=== PATIENT | male | born 1980 | race Caucasian/White ===

== ENCOUNTER → 2018-08-10 14:21 | Outpatient (CLI) | payer MEDICAID, SELFPAY ==
[2018-08-10 15:12] LABS: Absolute Neutrophil Count 5.9 X10^3/uL (2.0-7.7); Basophil# 0.07 X10^3/uL; Basophil% 0.8 % (0-1); Eosinophil# 0.27 X10^3/uL; Hematocrit 43.6 % (40-54); Mean Corp Hgb Conc 34.4 g/gl (32-36); Mean Corpuscular Hgb 28.2 pg (27.0-32.0); Mean Corpuscular Volume 82.1 fL (80-94); Mean Platelet Vol. 11.6 fl (6.2-12.0); Monocyte# 0.89 X10^3/uL; Monocyte% 9.9 % (0-10); Neutrophil # 5.91 X10^3/uL (2.7-7.7); Neutrophil % 65.9 % (47-70); Platelet Count 215 K/mm3 (150-450); RBC Distribution Width CV 13.3 % (11.6-14.6); RBC Distribution Width SD 39.9 fl (35.1-43.9); Red Blood Count 5.31 M/mm3 (4.6-6.2)
[2018-08-10 15:13] LABS: POSITIVE COUNT NO; POSITIVE DIFFERENTIAL NO; POSITIVE MORPHOLOGY NO
[2018-08-10 15:33] LABS: ALB/GLOB Ratio 0.9 RATIO (0.9-2.4); AST(SGOT) 24 U/L (15-37); Alanine Aminotransfer ALT/SGPT 42 U/L (16-61); Albumin, Serum 3.6 g/dL (3.2-5.0); Alkaline Phosphatase 124 U/L (45-117); Anion Gap 6 (5-15); BUN 13 mg/dL (7-18); BUN/Creat Ratio 16.7 RATIO (10-20); Calcium,Total 8.6 mg/dL (8.5-10.1); Chloride 102 mmol/L (98-107); Creatinine, Serum 0.78 mg/dL (0.70-1.30); EST Glomerular Filtration Rate 119 mL/min (>60); Est Glom Filt Rate - Afr Amer 145 mL/min (>60); Globulin 3.9 g/dL (2.2-4.2); Glucose 72 mg/dL (74-106); Potassium 4.2 mmol/L (3.5-5.1); Protein, Total 7.5 g/dL (6.4-8.2); Sodium Level 134 mmol/L (136-145)
[2018-08-10 16:19] LABS: HIV - WCH Non-Reactive (Nonreactive)
[2018-08-12 06:07] LABS: HEPATITIS B SURFACE AG Negative (Negative); Hepatitis A AB, Total Negative (Negative); Hepatitis A IgM Antibody Negative (Negative); Hepatitis B Core AB IgM Negative (Negative); Hepatitis B Core Ab Total Negative (Negative)
[2018-08-13 13:06] LABS: Hep B Surface Antibodies Non Reactive (.)
[2018-08-16 12:21] LABS: Hepatitis C Ab >11.0 s/co ratio (0.0-0.9)
== END ==
PROVIDERS: Family Provider Nurse Practitioner Family; PCP Nurse Practitioner Family; Visit Provider Nurse Practitioner Family
DX: F19.10 Other psychoactive substance abuse, uncomplicated (principal)
CPT/HCPCS: 36415; 80053; 85025; 86703; 86704; 86705; 86706; 86708; 86709; 86803; 87340

== ENCOUNTER → 2018-08-26 07:05 | Outpatient (CLI) | payer MEDICAID, SELFPAY ==
--- NOTE | 2018-08-26 07:07 | CT_ITS ---
STUDY: CT ABDOMEN AND PELVIS WITH CONTRAST REASON FOR EXAM: Male, 38 years old. Right groin pain and bulge for several months RADIATION DOSAGE (If Supplied By Facility): CTDIvol = ( 13.51 ) mGy, DLP = ( 1304.13 ) mGycm TECHNIQUE: Transaxial images were obtained from the dome of the diaphragm to the symphysis pubis with oral contrast. 100mL ml of Isovue 300 contrast was administered. Sagittal and coronal images were reconstructed. Individualized dose optimization techniques were used for this CT. COMPARISON: None. FINDINGS: The visualized lung bases are unremarkable. The visualized portions of the heart are within normal limits. Normal liver. Normal gallbladder and extrahepatic biliary system. Normal spleen. Normal pancreas. Normal bilateral adrenal glands. Normal right kidney. Normal left kidney. Normal visualized stomach. Normal small intestine. Normal colon. The appendix is visualized and appears normal. Normal abdominal aorta. Normal inferior vena cava. Normal retroperitoneum. Normal urinary bladder. Normal abdominal wall. Normal osseous structures. CT/Abdomen/Pelvis WITH Contrast IMPRESSION: No inguinal hernia is visible at this time. No evidence of acute intestinal pathology or acute obstructive uropathy. Electronically Signed: Jack So MD at 9:29 EDT Tel , Service support ,
== END ==
PROVIDERS: Family Provider Nurse Practitioner Family; PCP Nurse Practitioner Family; Referring Provider Surgery
DX: R10.31 Right lower quadrant pain (principal)
CPT/HCPCS: 74177; Q9967

== ENCOUNTER 2019-07-13 20:22 | Emergency (ER) | payer SELFPAY ==
[2019-07-13] VITALS (8 sets, daily range): BP systolic 112–147; BP diastolic 79–90; PULSE 55–66; RESP 9–18; TEMP 36.5; O2SAT 97–100; BMI 18.6
--- NOTE | 2019-07-13 20:59 | CT_ITS ---
STUDY: CT ABDOMEN AND PELVIS WITHOUT CONTRAST REASON FOR EXAM: Male, 39 years old. RT GROIN/HERNIA PAIN RADIATION DOSAGE (If Supplied By Facility): CTDIvol = ( 6.04 ) mGy, DLP = ( 297.48 ) mGycm TECHNIQUE: Transaxial images were obtained from the dome of the diaphragm to the symphysis pubis without oral contrast, and without intravenous contrast. Sagittal and coronal images were reconstructed. Individualized dose optimization techniques were used for this CT. COMPARISON: 08/26/2018 FINDINGS: The visualized lung bases are unremarkable. The visualized portions of the heart are within normal limits. Normal liver. Normal gallbladder and extrahepatic biliary system. Normal spleen. Normal pancreas. Normal bilateral adrenal glands. Normal right kidney. Normal left kidney. Evaluation of the GI tract is limited by absence of oral contrast. Cannot exclude stomach wall thickening. No dilated loops of bowel or evidence for obstruction. Cannot exclude segmental thickening of the mathis of the small or large bowel. Cannot exclude enteritis or colitis. Moderate diffuse fecal retention. Appendix within normal limits. Normal abdominal aorta. Normal inferior vena cava. Normal retroperitoneum. Normal urinary bladder. There is a right-sided inguinal hernia containing a segment of bowel without evidence for obstruction. Normal osseous structures. CT/Abdomen/Pelvis without Cont IMPRESSION: Small to moderate right inguinal hernia containing a short segment of bowel with no evidence for obstruction. Electronically Signed: Kaleb Elizalde MD at 21:33 EDT , Service support ,
--- NOTE | 2019-07-13 21:40 | ED.DCSUM_ITS ---
History of Present Illness Chief Complaint: Abd Pain Narrative: Patient presenting due to concerns for a hernia. Patient states that he has had bulging in his right groin over the course of approximately last 3 weeks, but since 7 PM tonight he had a severe onset of pain associated with it. Denies any nausea vomiting or diarrhea associated with it. No fevers. No injuries or lifting twisting pushing or pulling. Patient has no prior history of hernia, but that is what he is concerned is going on.Pain is severe and worse with palpation. 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 Smoking Status: Current every day smoker Review of Systems All systems negative except as indicated Genitourinary: Reports: - - Right groin pain Physical Exam Vital Signs/Narrative: Vital Signs Temp Pulse Resp BP Pulse Ox 07/13/19 20:22 97.7 F L 56 L 18 127/82 H 97 General: Well nourished, Well developed, No Acute Distress Head: Normocephalic, Atraumatic Eyes: Perrl, EOMI ENT: Moist mucous membranes, No rhinorrhea Neck: Supple, Nontender Cardiovascular: Regular rate, Regular rhythm, No murmurs Respiratory: No distress, CTA bilaterally, Chest nontender Abdomen: Soft, Nontender, Nondistended, Normal bowel sounds : - - Patient has evidence of a right inguinal hernia that appears to be an indirect hernia that does not extend down into the patient's scrotum. Testes are normal and nontender. Hernia is exquisitely tender to palpation no evidence of overlying skin changes. Back: Nontender, Normal Inspection Extremities: Nontender, No edema Skin: Normal color, No rash Neurological: Alert, Oriented x3, Cranial nerves II-XII grossly intact, Normal Strength, Normal Sensation Psychological: Normal affect, Normal Mood Diagnostic/Tx/Re-eval - Medical Decision Making Patient presented with an incarcerated hernia. This was confirmed on CT scan. I initially attempted Trendelenburg and ice application and tried to reduce it without any sedation but was unsuccessful. Ultimately the patient was sedated with a total of 120 mg of propofol and successful reduction was performed. Given the fact that this was incarcerated, I contacted on-call general surgery for close follow-up. Patient was recommended lifting restrictions until followed up with general surgery. He was discharged in improved condition. Procedures Procedure(s): Patient was consented for procedural sedation and reduction of her right incarcerated inguinal hernia. Patient was placed on the mushroom spawn maker and supplemental oxygen. Patient was sedated with a total of 120 mg of propofol with good anesthesia. Continuous pressure of the patient's right groin ultimately resulted in successful reduction of the patient's incarcerated inguinal hernia. Patient was observed until he was fully awake Disposition: Home ED Disposition - Plan for ED Patient: Disposition: Home or Assisted Living Diagnosis: Incarcerated inguinal hernia, unilateral Instructions: Hernia Repair Surgery Referrals: Monique Roper MD [STAFF PHYSICIAN] - As soon as possible
[2019-07-13] MEDS: Propofol 200 MG/20 ML Vial IV BOLUS (22:24)
== END 2019-07-13 23:03 | disposition home or self-care (01) ==
PROVIDERS: Emergency Provider Emergency Medicine
DX: K40.30 Unilateral inguinal hernia, with obstruction, without gangrene, not specified as recurrent (principal); F17.200 Nicotine dependence, unspecified, uncomplicated; Z88.0 Allergy status to penicillin
CPT/HCPCS: 74176; 90471; 99285; J7030

== ENCOUNTER → 2021-04-08 08:49 | Outpatient (CLI) | payer MEDICAID, SELFPAY ==
[2019-07-13 20:22] VITALS: BMI 18.6
--- NOTE | 2021-04-08 08:52 | US_ITS ---
STUDY: ABDOMINAL ULTRASOUND - RIGHT UPPER QUADRANT REASON FOR VISIT: Male, 40 years old CHRONIC VIRAL HEPATITIS C TECHNIQUE: Ultrasound evaluation of the right upper quadrant was performed with real-time and static bhandari-scale imaging. TECHNICAL QUALITY: Adequate. COMPARISON: Comparison is made with prior CT scan of the abdomen dated 07/13/2019. FINDINGS: Liver: The liver measures 16.1 cm. There is normal echogenicity of the liver. Minimally dilated intrahepatic biliary ducts. There is hepatic color flow. The direction of portal flow is hepatopetal. There is no demonstrated mass lesion. Gallbladder: Normal distended gallbladder. The gallbladder wall measures 2.6 mm. There is a negative sonographic Brothers''s sign. There is no pericholecystic fluid. There are no gallstones. Common Bile Duct (C.B.D.): The common bile duct measures 5.2 mm. Pancreas: Normal size of the head, body and tail of the pancreas. There is normal echogenicity of the pancreas. There is no demonstrated pancreatic mass or cyst. Right Kidney: Normal size of the right kidney. The right kidney measures 11.5 cm x 4.7 cm x 4.2 cm. Normal renal cortex. The right cortex measures 1.5 cm. There is no demonstrated renal mass or cyst. There is no right hydronephrosis. US/Abdomen Limited IMPRESSION: Minimally dilated central intrahepatic biliary ducts. Electronically Signed: Fabrizio Chin MD at 10:16 EDT , Service support ,
== END ==
PROVIDERS: Referring Provider Internal Medicine Infectious Disease; Visit Provider Internal Medicine Infectious Disease
DX: B18.2 Chronic viral hepatitis C (principal)
CPT/HCPCS: 76705

== ENCOUNTER → 2021-04-10 09:33 | Outpatient (CLI) | payer MEDICAID, SELFPAY ==
[2019-07-13 20:22] VITALS: BMI 18.6
[2021-04-10 10:35] LABS: Absolute Lymphocyte Count 1.86 X10^3/uL (0.83-4.51); Absolute Neutrophil Count 6.4 X10^3/uL (2.0-7.7); Basophil# 0.11 X10^3/uL; Basophil% 1.1 % (0-1); Eosinophils% 4.1 % (0-5); Hematocrit 47.7 % (40-54); Hemoglobin 15.8 g/dL (13.0-16.5); Lymphocyte # 1.86 X10^3/ul (0.83-4.51); Mean Corp Hgb Conc 33.1 g/dL (32-36); Mean Corpuscular Hgb 27.9 pg (27.0-32.0); Mean Corpuscular Volume 84.1 fL (80-94); Mean Platelet Vol. 11.9 fl (6.2-12.0); Monocyte# 0.97 X10^3/uL; Monocyte% 9.9 % (0-10); NRBC Flagged by Analyzer 0 % (0-5); Neutrophil # 6.42 X10^3/uL (2.7-7.7); Neutrophil % 65.7 % (47-70); Platelet Count 227 K/mm3 (150-450); RBC Distribution Width CV 12.5 % (11.6-14.6); Red Blood Count 5.67 M/mm3 (4.6-6.2); White Blood Count 9.8 K/mm3 (4.4-11.0)
[2021-04-10 11:03] LABS: ALB/GLOB Ratio 1.2 RATIO (0.9-2.4); AST(SGOT) 22 U/L (15-37); Alanine Aminotransfer ALT/SGPT 30 U/L (16-61); Albumin, Serum 3.8 g/dL (3.2-5.0); Alkaline Phosphatase 115 U/L (45-117); Anion Gap 5 (5-15); BUN 10 mg/dL (7-18); BUN/Creat Ratio 14.6 RATIO (10-20); Calcium,Total 8.7 mg/dL (8.5-10.1); Chloride 106 mmol/L (98-107); Creatinine, Serum 0.68 mg/dL (0.70-1.30); EST Glomerular Filtration Rate 136 mL/min (>60); Est Glom Filt Rate - Afr Amer 165 mL/min (>60); Globulin 3.3 g/dL (2.2-4.2); Glucose 118 mg/dL (74-106); Protein, Total 7.1 g/dL (6.4-8.2); Sodium Level 141 mmol/L (136-145)
[2021-04-10 11:19] LABS: Hepatitis B Surface Antigen Non-Reactive (Nonreactive)
[2021-04-10 12:00] LABS: Amphetamine Urine VISTA NEGATIVE (<1000 ng/mL); Barbiturate Urine VISTA NEGATIVE (< 200 ng/mL); Benzodiazepine Urine VISTA NEGATIVE (< 200 ng/mL); Cocaine Urine VISTA NEGATIVE (< 300 ng/mL); Ecstacy Urine VISTA NEGATIVE (< 500 ng/mL); Methadone Urine VISTA NEGATIVE (< 300 ng/mL); PCP Urine VISTA NEGATIVE (< 25 ng/mL); THC Urine VISTA POSITIVE (< 50 ng/mL); Vista UDS pH Range 5
[2021-04-12 08:27] LABS: HIV-1 RNA by PCR, Quant. < 20 copies/mL (.)
[2021-04-13 03:07] LABS: Comment 1a (.); HCV Quant. RNA PCR 2000000 IU/mL (.); Hepatitis A AB, Total Negative (Negative); Hepatitis A IgM Antibody Negative (Negative)
[2021-04-13 15:10] LABS: HCV log 10 6.301 (.)
== END ==
DX: B18.2 Chronic viral hepatitis C (principal)
CPT/HCPCS: 36415; 80053; 80307; 85025; 86708; 86709; 87340; 87522; 87536; 87902

== ENCOUNTER → 2021-04-29 10:08 | Outpatient (CLI) | payer MEDICAID, SELFPAY ==
[2019-07-13 20:22] VITALS: BMI 18.6
[2021-04-29 11:05] LABS: Hemoglobin A1c 5.2 % (3.8-5.6)
[2021-04-29 11:23] LABS: T4 Free Direct 0.94 ng/dL (0.76-1.46); Thyroid Stim Hormone (TSH) 2.49 uIU/mL (0.358-3.74)
== END ==
DX: R53.83 Other fatigue (principal); R63.4 Abnormal weight loss; B18.2 Chronic viral hepatitis C
CPT/HCPCS: 36415; 83036; 84439; 84443

== ENCOUNTER → 2021-05-02 15:02 | Outpatient (CLI) | payer MEDICAID, SELFPAY ==
[2019-07-13 20:22] VITALS: BMI 18.6
--- NOTE | 2021-05-02 15:10 | CT_ITS ---
STUDY: CT ABDOMEN AND PELVIS WITHOUT CONTRAST REASON FOR EXAM: Male, 41 years old. ABD PAIN/WEIGHT LOSS RADIATION DOSAGE (If Supplied By Facility): CTDIvol = ( 6.04 ) mGy, DLP = ( 297.48 ) mGycm TECHNIQUE: Transaxial images were obtained from the dome of the diaphragm to the symphysis pubis without oral contrast, and without intravenous contrast. Sagittal and coronal images were reconstructed. Individualized dose optimization techniques were used for this CT. COMPARISON: Comparison is made with prior examination 07/13/2019. FINDINGS: The visualized lung bases are unremarkable. The visualized portions of the heart are within normal limits. Normal liver. Normal gallbladder and extrahepatic biliary system. Normal spleen. Normal pancreas. Normal bilateral adrenal glands. Normal right kidney. Normal left kidney. Normal visualized stomach. Normal small intestine. Normal colon. The appendix is visualized and appears normal. Normal abdominal aorta. Normal inferior vena cava. Normal retroperitoneum. Moderate degree of diffuse bladder wall thickening more prominent at the bases. There is enlargement of the seminal vesicles bilaterally. The prostate measures 2.9 cm x 4.4 cm. Normal abdominal wall. Normal osseous structures. CT/Abdomen/Pelvis without Cont IMPRESSION: Bladder wall thickening with irregularity as described. Enlargement of the seminal vesicles bilaterally. This is unchanged. Electronically Signed: Fabrizio Chin MD at 15:32 EDT , Service support ,
== END ==
DX: R63.4 Abnormal weight loss (principal); R10.32 Left lower quadrant pain
CPT/HCPCS: 74176

== ENCOUNTER → 2021-05-09 10:38 | Outpatient (CLI) | payer MEDICAID, SELFPAY ==
[2019-07-13 20:22] VITALS: BMI 18.6
--- NOTE | 2021-05-09 10:43 | CYSPIN_PTH ---
PATIENT: DEMI MCNAMARA LOC: LAB U#:[id number] AGE/SX: 45/M ROOM: RE05/09/[address]: Dr. Ольга Jane MD : 1980 BED: DIS: SPEC #: [id number] RECD: 05/09/21 11:41 STATUS: KWESI RENATA #: [id number] KENYATTA: 05/09/21 10:[address]: Ольга Jane [facility] DEPT: CYTOLOGY RECD BY: Yisel Munoz ENTERED: 05/09/21 11:41 SP TYPE: CYSPIN FL OT DR: [facility] Tissues: Urine Procedures: Pap Stain (control) Special Stain Group II Cytospin Fluid HEADER OPERATION: Not noted PRE-OP DIAGNOSIS: R10.9, R53.83, R63.4 TISSUE SUBMITTED: Urine for cytology DIAGNOSIS CYTOLOGY Urine for cytology (cytospin): Negative for malignant cells. See comment. SJ:blaire 05/10/2021 COMMENT Clinical correlation and appropriate follow up are necessary. CYTOLOGY STUDY Slides are reviewed. CYTOLOGY GROSS Received is 25 ml of yellow cloudy fluid labeled with the patient's name and and designated per the requisition as urine. Submitted for cytology preparation. / blaire 05/09/2021 TC:4 CPT: 59658
[2021-05-09 10:45] LABS: Cytology, Body Fluid / CSF SEE PATHOLOGY REPORT
[2021-05-09 11:12] LABS: Color, Urine Yellow (Yellow); Glucose, Dipstick Normal (Normal); Ketone-Dipstick Negative (Negative); Leukocyte Esterase-Dipstick 25 /ul (Negative); Nitrite-Dipstick Negative (Negative); Occult Blood-Urine Negative /ul (Negative); Protein-Dipstick Negative (Negative); Specific Gravity, Urine 1.015 (1.002-1.030); Urine Bilirubin Dipstick Negative (Negative); Urine Clarity Clear (Clear); Urine Urobilinogen Normal (Normal); Urine pH 6.5 (5.0 - 8.0)
[2021-05-09 11:14] LABS: Erythrocyte Sedimentation Rate 7 mm/hr (0-20)
[2021-05-09 11:50] LABS: CRP < 2.90 mg/L (0.0-3.0)
== END ==
PROVIDERS: Visit Provider Internal Medicine Infectious Disease
DX: R10.9 Unspecified abdominal pain (principal); R53.83 Other fatigue; R63.4 Abnormal weight loss; B18.2 Chronic viral hepatitis C
CPT/HCPCS: 36415; 81002; 85652; 86140; 86480; 87086; 88108; 88313

== ENCOUNTER 2021-08-13 13:10 | Day surgery (SDC) | payer MEDICAID, SELFPAY ==
[2021-08-13 13:32] VITALS: BP 104/67; PULSE 57; RESP 18; TEMP 36.6; O2SAT 95; BMI 20.2
[2021-08-13] MEDS: Lactated Ringers 1,000 ML 100 ML IV (13:40)
--- NOTE | 2021-08-13 14:15 | EGD_PTH ---
PATIENT: DEMI MCNAMARA LOC: EN U#:[id number] AGE/SX: 41/M ROOM: RE08/13/[address]: Dr. Adriel Godwin DO : 1980 BED: DIS: 08/13/2021 SPEC #: [id number] RECD: 08/13/21 17:51 STATUS: KWESI RENATA #: [id number] KENYATTA: 08/13/21 14:[address]: Adriel Godwin DEPT: SURGICAL PATHOLOGY RECD BY: Catalina Augstin ENTERED: 08/14/21 12:09 SP TYPE: EGD BIOPSY OT DR: Silvia Nunez, [employer] Tissues: A - Duodenum, NOS B - Gastric mucous membrane Procedures: Special Stain Group II Surgery Specimen Level IV Alcian Blue/PAS (control) HEADER OPERATION: EGD ([facility]) PRE-OP DIAGNOSIS: Esophageal dysphagia, abdomen pain TISSUE SUBMITTED: A ? Duodenum biopsy, B ? GE junction biopsy MICROSCOPIC DIAGNOSIS A. Duodenum, biopsy: Focal gastric metaplasia. B. Gastroesophageal junction, biopsy: Mild chronic inflammation. No evidence of goblet cell metaplasia. Focal changes of reflux. See comment. AM:blaire 08/15/2021 COMMENT B. Alcian blue/PAS stain with matched control supports the above diagnosis. MICROSCOPIC DESCRIPTION Slides are reviewed. GROSS DESCRIPTION A - Received in fixative is one container labeled with the patient's name and designated duodenum biopsy. The specimen consists of multiple irregular fragments of light cotton soft tissue that in aggregate measure 1 x 0.5 x 0.1 cm. The specimen is totally submitted in one cassette. B - Received in fixative is one container labeled with the patient's name and designated GE junction. The specimen consists of two irregular fragments of light cotton soft tissue that in aggregate measure 0.5 x 0.3 x 0.1 cm. The specimen is totally submitted in one cassette. / AM:blaire 08/14/21 TC:3 CPT: 69684 x2, 99126
--- NOTE | 2021-08-13 14:43 | PCM.HP.STD ---
HPI - General HPI Narrative DEMI MCNAMARA, is a 41 M who presents DEMI MCNAMARA is a 41 M who presents to the office today for Mid Left abdominal pain which occurs day and night and wakes him from sleep. 3-4 occurrences a week. Denies nausea/emesis with pain. No change in bowel movements or color. Last colonoscopy 2013 with no abnormals as he remembers. Substance abuse history, quit in 2018. He admits that he had bleeding ulcers in the past secondary to nonsteroidals. He underwent EGD with endoscopic treatment to stop active bleeding gastric ulcers. When he gets the pain it is mostly in the periumbilical area and sometimes it improves with bowel movement. Okay to wake him up from sleep. The pain does not radiate to his back or to his shoulder. He has not had any abdominal surgeries. His weight has been stable. He does not take any steroidals time. He does also admit to esophageal dysphagia with solids. He says that this has been happening ever since he slit his throat. At this time he denies any homicidal or suicidal ideologies. He has occasional heartburn but not on a daily basis. This is an updated H&P from when he was seen in the office [facility] Medical History (Updated 08/13/21 @ 12:30 by Mary Rosales) Abdominal pain Alcohol abuse Anxiety Arthritis Back pain Back problem Bipolar disorder Depression Difficulty chewing Difficulty swallowing Drug abuse Enlarged heart Gastric reflux Hearing problem Hepatitis History of irregular heartbeat History of ulceration Hoarseness Injury of head and neck Migraine headache Migraines Smoker Ulcer Home Medications acetaminophen 500 mg tablet 500 mg PO Q8H PRN tab 08/06/18 [History Last Taken Unknown] fluvoxamine 100 mg tablet 100 mg PO QHS 08/06/18 [History Last Taken Unknown] oxcarbazepine 600 mg tablet 900 mg PO BID 08/06/18 [History Last Taken Unknown] propranolol 20 mg tablet 20 mg PO BID 08/06/18 [History Last Taken Unknown] buprenorphine HCl 2 mg SUBLINGUAL TID 07/13/19 [History Last Taken 08/13/21] olanzapine 2.5 mg tablet 2.5 mg PO DAILY 08/06/21 [History Last Taken Unknown] ondansetron HCl 4 mg tablet 4 mg PO Q8H 08/06/21 [History Last Taken 08/13/21] Allergy/AdvReac Type Severity Reaction Status Date / Time Penicillins Allergy Unknown Rash Verified 08/13/21 12:20 Family History Uncle Diabetes Aunt Diabetes Father Heart disease Alcohol abuse Son Benign brain tumor Surgical History (Updated 08/13/21 @ 12:30 by Mary Rosales) History of facial surgery Hx of hernia repair Hx of neck surgery Social History Smoking Status: Current every day smoker tobacco type: cigarettes alcohol intake: former substance use type: former substance user caffeine: Yes what type of physical activity do you participate in: walking and weight training frequency: 1-2 times per week seatbelt use: always Vital Signs Vital Signs Vital Signs: 08/13/21 13:32 Temperature 97.8 F Temperature Source Temporal Pulse Rate 57 L Respiratory Rate 18 Respiratory Pattern Normal Blood Pressure 104/67 Blood Pressure Mean 79 Blood Pressure Source Monitor Blood Pressure Position Semi-Fowlers Blood Pressure Location Left Arm Pulse Ox 95 Oxygen Delivery Method Room Air Weight Weight: 137 lb 2.04 oz Body Mass Index (BMI) 20.2 Results Lab / Micro Data Micro: Microbiology 08/13/21 13:45 Nasal Secretion SARS-CoV-2 Antigen (Rapid) - Final
[2021-08-13 15:00] VITALS: BP 104/67; PULSE 66; RESP 16; TEMP 36.3; O2SAT 99
--- NOTE | 2021-08-13 15:02 | OP.EGD_ITS ---
Patient Name: Jose Ludwig Procedure Date: 08/13/2021 2:33 PM Date of : 1980 Age: 41 Procedure: Upper GI endoscopy Indications: Epigastric abdominal pain Providers: Adriel Godwin DO Medicines: Monitored Anesthesia Care Patient Profile: This is a 41 year old male. Refer to note in patient chart for documentation of history and physical. Patient has symptoms. The symptoms first began November within the past few months. Complications: No immediate complications. Procedure: Pre-Anesthesia Assessment: - Prior to the procedure, a History and Physical was performed, and patient medications and allergies were reviewed. The patient is competent. The risks and benefits of the procedure and the sedation options and risks were discussed with the patient. All questions were answered and informed consent was obtained. Patient identification and proposed procedure were verified by the physician in the pre-procedure area. Mental Status Examination: alert and oriented. Airway Examination: normal oropharyngeal airway and neck mobility. Respiratory Examination: clear to auscultation. CV Examination: normal. Prophylactic Antibiotics: The patient does not require prophylactic antibiotics. Prior Anticoagulants: The patient has taken no previous anticoagulant or antiplatelet agents. ASA Grade Assessment: II - A patient with mild systemic disease. After reviewing the risks and benefits, the patient was deemed in satisfactory condition to undergo the procedure. The anesthesia plan was to use moderate sedation / analgesia (conscious sedation). Immediately prior to administration of medications, the patient was re-assessed for adequacy to receive sedatives. The heart rate, respiratory rate, oxygen saturations, blood pressure, adequacy of pulmonary ventilation, and response to care were monitored throughout the procedure. The physical status of the patient was re-assessed after the procedure. After obtaining informed consent, the endoscope was passed under direct vision. Throughout the procedure, the patient's blood pressure, pulse, and oxygen saturations were monitored continuously. The Endoscope was introduced through the mouth, and advanced to the second part of duodenum. The upper GI endoscopy was accomplished without difficulty. The patient tolerated the procedure well. Moderate Sedation: Moderate (conscious) sedation was administered by the endoscopy nurse and supervised by the endoscopist. The patient's oxygen saturation, heart rate, blood pressure and response to care were monitored. Scope In: 2:49:00 PM Scope Out: 2:55:07 PM Total Procedure Duration Time 0 hours 6 minutes 7 seconds Findings: LA Grade B (one or more mucosal breaks greater than 5 mm, not extending between the tops of two mucosal folds) esophagitis with no bleeding was found. Biopsies were taken with a cold forceps for histology. Verification of patient identification for the specimen was done. Estimated blood loss was minimal. A small hiatal hernia was present. The exam was otherwise without abnormality. Scattered moderate inflammation characterized by congestion (edema) was found in the first portion of the duodenum. Biopsies were taken with a cold forceps for histology. Verification of patient identification for the specimen was done. Estimated blood loss was minimal. Impression: - LA Grade B reflux esophagitis. Biopsied. - Small hiatal hernia. - The examination was otherwise normal. - Duodenitis. Biopsied. - LA Grade B reflux esophagitis. Biopsied. - Small sliding hiatal hernia. - Duodenitis. Biopsied. Recommendation: - Discharge patient to home. - Resume previous diet. - Continue present medications. - Await pathology results. - Repeat upper endoscopy in 1 year for surveillance based on pathology results. - Return to GI office in 2 weeks. Procedure Code(s): --- Professional --- 16221, Esophagogastroduodenoscopy, flexible, transoral; with biopsy, single or multiple CPT copyright 2017 [employer]. All rights reserved. The codes documented in this report are preliminary and upon safety and security manager review may be revised to meet current compliance requirements. Adriel Godwin DO 08/13/2021 3:02:28 PM This report has been signed electronically. Number of Addenda: 1 Note Initiated On: 08/13/2021 2:33 PM Addendum Number: 1 Addendum Date: 07/17/2022 4:08:35 PM MAC was used instead of moderate sedation for this patient. Adriel Godwin DO 07/17/2022 4:08:42 PM This report has been signed electronically.
--- NOTE | 2021-08-13 15:03 | OP.CCLET_ITS ---
07/17/2022 Daily Dav[facility] Re : [facility] This procedure was performed on Friday, August 13, 2021. My impressions and recommendations are as follows: Impressions : - LA Grade B reflux esophagitis. Biopsied. - Small hiatal hernia. - The examination was otherwise normal. - Duodenitis. Biopsied. - LA Grade B reflux esophagitis. Biopsied. - Small sliding hiatal hernia. - Duodenitis. Biopsied. Recommendations : - Discharge patient to home. - Resume previous diet. - Continue present medications. - Await pathology results. - Repeat upper endoscopy in 1 year for surveillance based on pathology results. - Return to GI office in 2 weeks. My findings are described in the full procedure note, which is enclosed. If I can be of further assistance, please feel free to contact me at . Sincerely, Adriel Friend, 08/13/2021 3:02:28 PM This report has been signed electronically.
[2021-08-13 15:05] VITALS: BP 104/67; BP 134/81; PULSE 58; RESP 16; O2SAT 97
[2021-08-13 15:10] VITALS: BP 104/67; BP 141/81; PULSE 54; RESP 16; O2SAT 98
[2021-08-13 15:16] VITALS: BP 104/67; BP 141/87; PULSE 55; RESP 16; TEMP 36.3; O2SAT 99
[2021-08-13 15:25] VITALS: BP 104/67
== END 2021-08-13 15:29 ==
LOC: EN 13:13 → AC 13:13
PROVIDERS: Visit Provider Internal Medicine Gastroenterology
PROC: 0DJ08ZZ Inspection of Upper Intestinal Tract, Via Natural or Artificial Opening Endoscopic (ICD-10-PCS; CPT 43235; principal; 2021-08-13 14:10)
DX: K21.00 Gastro-esophageal reflux disease with esophagitis, without bleeding (principal); K44.9 Diaphragmatic hernia without obstruction or gangrene; K29.80 Duodenitis without bleeding; F31.9 Bipolar disorder, unspecified; F17.210 Nicotine dependence, cigarettes, uncomplicated
CPT/HCPCS: 43239; 87426; 88305; 88313; J7120; J2405

== ENCOUNTER 2021-11-14 08:58 | Emergency (ER) | payer MEDICAID, SELFPAY ==
[2021-11-14 08:58] VITALS: BP 117/68; PULSE 87; RESP 16; TEMP 35.9; O2SAT 100; BMI 19.2
[2021-11-14] MEDS: cycloBENZAPRine HCl 10 MG Tablet PO (09:48)
[2021-11-14] MEDS: Naproxen 250 MG Tablet 500 MG PO (09:48)
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
== END 2021-11-14 10:38 | disposition home or self-care (01) ==
PROVIDERS: Emergency Provider Emergency Medicine
DX: S16.1XXA Strain of muscle, fascia and tendon at neck level, initial encounter (principal); S46.911A Strain of unspecified muscle, fascia and tendon at shoulder and upper arm level, right arm, initial encounter; V49.40XA Driver injured in collision with unspecified motor vehicles in traffic accident, initial encounter; Y93.89 Activity, other specified; Y92.9 Unspecified place or not applicable; Y99.9 Unspecified external cause status; F17.210 Nicotine dependence, cigarettes, uncomplicated; K21.9 Gastro-esophageal reflux disease without esophagitis; Z79.899 Other long term (current) drug therapy; F41.9 Anxiety disorder, unspecified; F31.9 Bipolar disorder, unspecified; S80.12XA Contusion of left lower leg, initial encounter; S80.01XA Contusion of right knee, initial encounter
CPT/HCPCS: 99282

== ENCOUNTER 2021-11-22 10:01 | Emergency (ER) | payer MEDICAID, SELFPAY ==
[2021-11-22 10:02] VITALS: BP 121/86; PULSE 69; RESP 16; TEMP 35.2; O2SAT 96; BMI 19.5
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
== END 2021-11-22 11:39 | disposition home or self-care (01) ==
PROVIDERS: Emergency Provider Emergency Medicine; Visit Provider Emergency Medicine
DX: S16.1XXA Strain of muscle, fascia and tendon at neck level, initial encounter (principal); S46.911A Strain of unspecified muscle, fascia and tendon at shoulder and upper arm level, right arm, initial encounter; F17.210 Nicotine dependence, cigarettes, uncomplicated; V89.2XXA Person injured in unspecified motor-vehicle accident, traffic, initial encounter
CPT/HCPCS: 71046; 72125; 99282

== ENCOUNTER → 2022-03-11 | Outpatient (CLI) | payer MEDICAID, SELFPAY ==
--- NOTE | 2022-03-11 12:04 | MRI_ITS ---
EXAM: MR CERVICAL SPINE WITHOUT INTRAVENOUS CONTRAST CLINICAL INDICATION: pain TECHNIQUE: Multiplanar and multisequence MR images of the cervical spine without intravenous contrast were performed. This report was created using [employer] report generation technology. COMPARISON: CT cervical spine November 22, 2021 FINDINGS: VERTEBRAE: Mild reversal of the usual lordotic curvature centered at C4-C5 6. Mild anterior spondylosis at C5-C6 uncovertebral spondylosis. Normal craniocervical junction and cervicothoracic junction. No spondylolisthesis. SPINAL CORD: Wide AP diameter of the cervical canal, no roger spinal stenosis cord impingement. Normal cord signal intensity in size. SOFT TISSUES: Unremarkable. No prevertebral soft tissue swelling. LYMPH NODES: Unremarkable. There is no cervical adenopathy. DISCS/SPINAL CANAL/NEURAL FORAMINA: C2-C3: Unremarkable. Normal disc height and morphology. Normal spinal canal. Normal neuroforamina. C3-C4: Unremarkable. Normal disc height and morphology. Normal spinal canal. Normal neuroforamina. C4-C5: Mild decreased disc height and T2 signal intensity. Normal neuroforamina. C5-C6: Mild decreased disc height and T2 signal intensity. Normal neuroforamina. C6-C7: Mild decreased disc height and T2 signal intensity. Normal spinal canal. Normal neuroforamina. C7-T1: Unremarkable. Normal disc height and morphology. Normal spinal canal. Normal neuroforamina. MRI/Spine Cervical (Routine) IMPRESSION: Similar mild reversal of the usual lordotic curvature centered at C4-C6 and mild degenerative changes most pronounced anteriorly at C5-C6 compared to prior CT. No spinal stenosis, significant neural foraminal stenosis or other suspicious acute findings. Electronically Signed: Lucila Singh MD at 5:48 EDT ,
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
== END | disposition home or self-care (01) ==
PROVIDERS: Visit Provider Orthopaedic Surgery
DX: M50.30 Other cervical disc degeneration, unspecified cervical region (principal); M53.2X2 Spinal instabilities, cervical region
CPT/HCPCS: 70030; 72141

== ENCOUNTER 2022-05-21 12:12 | Emergency (ER) | payer MEDICAID, SELFPAY ==
[2022-05-21 12:13] VITALS: BP 117/82; PULSE 76; RESP 18; TEMP 36; O2SAT 94; BMI 19.3
--- NOTE | 2022-05-21 12:19 | EDS_ITS ---
HPI History of Present Illness Chief Complaint: Abd Pain Informant: patient Narrative Narrative: 42-year-old male present with abdominal pain. Patient states this has been ongoing for the past week. He states he has a history of chronic abdominal pain but has worsened over the past week. He states he normally takes nausea medication and this improves his symptoms. He has had diarrhea. Denies vomiting. Denies fever. Denies urinary complaints. Prior similar symptoms: Yes PFSH PFSH Medical History Abdominal pain Alcohol abuse Anxiety Arthritis Back pain Back problem Bipolar disorder Depression Difficulty chewing Difficulty swallowing Drug abuse Enlarged heart Gastric reflux GERD (gastroesophageal reflux disease) Hearing problem Hepatitis History of irregular heartbeat History of ulceration Hoarseness Injury of head and neck Migraine headache Migraines Smoker Ulcer Home Medications fluvoxamine 100 mg tablet 100 mg PO QHS 08/06/18 [History Last Taken Unknown] oxcarbazepine 600 mg tablet 900 mg PO BID 08/06/18 [History Last Taken Unknown] propranolol 20 mg tablet 20 mg PO BID 08/06/18 [History Last Taken Unknown] buprenorphine HCl 2 mg sublingual tablet 8 mg sublingual BID 07/13/19 [History Last Taken 08/13/21] olanzapine 2.5 mg tablet 2.5 mg PO DAILY 08/06/21 [History Last Taken Unknown] ondansetron HCl 4 mg tablet (Zofran) 4 mg PO Q8H 08/06/21 [History Last Taken 08/13/21] dicyclomine 10 mg capsule 10 mg PO TID PRN abdominal discomfort #20 caps 05/21/22 [Rx Last Taken Unknown] ondansetron 4 mg disintegrating tablet 4 mg PO Q8H PRN PRN Nausea #10 tabs 05/21/22 [Rx Last Taken Unknown] Allergy/AdvReac Type Severity Reaction Status Date / Time Penicillins Allergy Unknown Rash Verified 05/21/22 12:14 Family History Uncle Diabetes Aunt Diabetes Father Heart disease Alcohol abuse Son Benign brain tumor Surgical History History of facial surgery Hx of hernia repair Hx of neck surgery Social History Smoking Status: Current every day smoker tobacco type: cigarettes alcohol intake: former substance use type: former substance user caffeine: Yes what type of physical activity do you participate in: walking and weight training frequency: 1-2 times per week seatbelt use: always ROS ROS ED Constitutional Constitutional ED: Denies fever(s) ENT ENT ED: Denies rhinorrhea Cardiovascular Cardiovascular: Denies chest pain Respiratory/Chest Respiratory/Chest: Denies cough or dyspnea Gastrointestinal Gastrointestinal: Reports abdominal pain, diarrhea and nausea; Denies constipati on, melena or vomiting Genitourinary Genitourinary ED: Denies dysuria Musculoskeletal Musculoskeletal: Denies back pain Integumentary Denies rash Neurologic Neurologic: Denies headache(s) EXAM Physical Exam Const Vital Signs: 05/21/22 12:13 05/21/22 14:47 Temperature 96.8 F L 98.7 F Temperature Source Temporal Oral Pulse Rate 76 62 Respiratory Rate 18 16 Blood Pressure 117/82 H 116/85 H Blood Pressure Mean 93 95 Pulse Ox 94 97 Oxygen Delivery Method Room Air Room Air Positive well nourished and well developed General Appearance ED: well developed HEENT Reports moist mucous membranes Neck supple Chest Wall inspection of chest normal Resp normal respiratory effort and clear to auscultation bilaterally Cardio regular rate and regular rhythm GI normal to inspection, nondistended, normoactive bowel sounds Palpation: soft and tender epigastric; Negative for guarding or rebound tenderness present Back/Spine no CVA tenderness Extremity normal to inspection Neuro oriented x3 Psych mental status grossly normal Skin no rashes or lesions noted MDM MDM MDM Narrative Medical decision making narrative: Patient was given IV fluids, Zofran. CBC shows white count 12.1. Chemistries unremarkable. Lipase is normal. Urinalysis unremarkable. On reevaluation, patient is resting comfortably. Repeat abdominal exam is soft and nontender. He is given prescription for Bentyl and Zofran. Advised to follow-up with primary care physician. Advised return to ED for worsening complaints. Lab Data Attestation: I reviewed the patient's lab results. Labs: Laboratory Results - last 24 hr 05/21/22 05/21/22 05/21/22 12:28 12:28 14:33 WBC 12.1 H RBC 5.60 Hgb 15.5 Hct 47.3 MCV 84.5 MCH 27.7 MCHC 32.8 RDW Std Deviation 37.5 RDW Coeff of Uzma 12.4 Plt Count 215 MPV 10.9 Immature Gran % (Auto) 0.200 Neut % (Auto) 85.3 H Lymph % (Auto) 9.0 L [place] % (Auto) 3.8 Eos % (Auto) 1.4 Baso % (Auto) 0.3 Absolute Neuts (auto) 10.3 H Absolute Lymphs (auto) 1.09 Nucleated RBC % 0 Sodium 139 Potassium 4.3 Chloride 108 H Carbon Dioxide 27.0 Anion Gap 4 L BUN 12 Creatinine 0.79 Estim Creat Clear Calc 103.58 Est GFR (MDRD) Af Amer 139 Est GFR (MDRD) Non-Af 115 BUN/Creatinine Ratio 15.2 Glucose 116 H Calcium 8.9 Total Bilirubin 0.30 AST 10 L ALT 13 L Alkaline Phosphatase 102 Total Protein 6.9 Albumin 3.6 Globulin 3.3 Albumin/Globulin Ratio 1.1 Lipase 58 L Urine Color Yellow Urine Clarity Clear Urine pH 6.0 Ur Specific [place] 1.020 Urine Protein 15 H Urine Glucose (UA) Normal Urine Ketones 5 H Urine Occult Blood Negative Urine Nitrite Negative Urine Bilirubin Negative Urine Urobilinogen Normal Ur Leukocyte Esterase Negative Urine RBC 0 SEEN Urine WBC 0 SEEN Ur Squamous Epith Cells 0 SEEN Urine Bacteria 0 SEEN Urine Mucus 0 SEEN Discharge Plan Triage Chief Complaint: Abd Pain ED Provider: Marely Singh Dx/Rx/DC Orders Clinical Impression: Abdominal pain Instructions: Abdominal Pain Prescriptions: New dicyclomine 10 mg capsule 10 mg PO TID PRN (Reason: abdominal discomfort) Qty: 20 0RF ondansetron 4 mg tablet,disintegrating 4 mg PO Q8H PRN PRN (Reason: Nausea) Qty: 10 0RF No Action oxcarbazepine 600 mg tablet 900 mg PO BID fluvoxamine 100 mg tablet 100 mg PO QHS propranolol 20 mg tablet 20 mg PO BID olanzapine 2.5 mg tablet 2.5 mg PO DAILY ondansetron HCl [Zofran] 4 mg tablet 4 mg PO Q8H buprenorphine HCl 2 MG tablet, sublingual 8 mg sublingual BID [facility] Referrals: Friend,DO Adriel [STAFF PHYSICIAN] - [facility] [Primary Care Provider] - Disposition Disposition: Home, Self Care
[2022-05-21] MEDS: Ondansetron 4 MG/2 ML Vial IV (12:34)
[2022-05-21] MEDS: 0.9% Normal Saline 1,000 ML 1000 ML IV (12:34)
[2022-05-21 12:37] LABS: Absolute Lymphocyte Count 1.09 X10^3/uL (0.83-4.51); Absolute Neutrophil Count 10.3 X10^3/uL (2.0-7.7); Basophil# 0.04 X10^3/uL; Basophil% 0.3 % (0-1); Eosinophil# 0.17 X10^3/uL; Eosinophils% 1.4 % (0-5); Hematocrit 47.3 % (40-54); Hemoglobin 15.5 g/dL (13.0-16.5); Lymphocyte # 1.09 X10^3/ul (0.83-4.51); Mean Corp Hgb Conc 32.8 g/dL (32-36); Mean Corpuscular Hgb 27.7 pg (27.0-32.0); Mean Corpuscular Volume 84.5 fL (80-94); Mean Platelet Vol. 10.9 fl (6.2-12.0); Monocyte# 0.46 X10^3/uL; Monocyte% 3.8 % (0-10); NRBC Flagged by Analyzer 0 % (0-5); Neutrophil # 10.26 X10^3/uL (2.7-7.7); Neutrophil % 85.3 % (47-70); Platelet Count 215 K/mm3 (150-450); RBC Distribution Width CV 12.4 % (11.6-14.6); RBC Distribution Width SD 37.5 fl (35.1-43.9); White Blood Count 12.1 K/mm3 (4.4-11.0)
[2022-05-21 12:55] LABS: ALB/GLOB Ratio 1.1 RATIO (0.9-2.4); AST(SGOT) 10 U/L (15-37); Alanine Aminotransfer ALT/SGPT 13 U/L (16-61); Albumin, Serum 3.6 g/dL (3.2-5.0); Alkaline Phosphatase 102 U/L (45-117); Anion Gap 4 (5-15); BUN 12 mg/dL (7-18); BUN/Creat Ratio 15.2 RATIO (10-20); Calcium,Total 8.9 mg/dL (8.5-10.1); Chloride 108 mmol/L (98-107); Creatinine, Serum 0.79 mg/dL (0.70-1.30); EST Glomerular Filtration Rate 115 mL/min (>60); Est Glom Filt Rate - Afr Amer 139 mL/min (>60); Estimated Creatinine Clearance 103.58 ml/min; Globulin 3.3 g/dL (2.2-4.2); Glucose 116 mg/dL (74-106); Lipase 58 U/L (73-393); Potassium 4.3 mmol/L (3.5-5.1); Protein, Total 6.9 g/dL (6.4-8.2); Sodium Level 139 mmol/L (136-145)
[2022-05-21 14:38] LABS: Bacteria 0 SEEN /hpf (None Seen); Mucous, Urine 0 SEEN /hpf (<or=2+); Red Blood Cells-Urine 0 SEEN /hpf (0-5); Squamous Epithelial Cells - UA 0 SEEN /hpf (0-5); White Blood Cells 0 SEEN /hpf (0-5)
[2022-05-21 14:39] LABS: Color, Urine Yellow (Yellow); Glucose, Dipstick Normal (Normal); Ketone-Dipstick 5 mg/dl (Negative); Leukocyte Esterase-Dipstick Negative /ul (Negative); Nitrite-Dipstick Negative (Negative); Occult Blood-Urine Negative /ul (Negative); Protein-Dipstick 15 mg/dl (Negative); Urine Bilirubin Dipstick Negative (Negative); Urine Clarity Clear (Clear); Urine Urobilinogen Normal (Normal)
[2022-05-21 14:47] VITALS: BP 116/85; PULSE 62; RESP 16; TEMP 37.1; O2SAT 97
== END 2022-05-21 15:25 | disposition home or self-care (01) ==
PROVIDERS: Emergency Provider Emergency Medicine; Visit Provider Emergency Medicine
DX: R10.9 Unspecified abdominal pain (principal); F31.9 Bipolar disorder, unspecified; R19.7 Diarrhea, unspecified; F17.210 Nicotine dependence, cigarettes, uncomplicated; K21.9 Gastro-esophageal reflux disease without esophagitis
CPT/HCPCS: 80053; 81001; 83690; 85025; 96361; 96374; 99283; J7030; A4216; J2405

== ENCOUNTER 2022-05-22 09:50 | Emergency (ER) | payer MEDICAID, SELFPAY ==
[2022-05-22 09:51] VITALS: BP 104/79; PULSE 73; RESP 16; TEMP 36.6; O2SAT 70; BMI 19.3
--- NOTE | 2022-05-22 10:06 | EDS_ITS ---
HPI History of Present Illness Chief Complaint: Abd Pain Informant: patient Narrative Narrative: 42-year-old male presenting to the emergency department with chronic abdominal pain that has been worse over the past week. Patient states this is been an ongoing issue for him. He has seen gastroenterology but is not due to see them anytime soon. He was seen in the emergency department yesterday. Today he is describing a cramping abdominal pain located in the center of his abdomen. He states he has had diarrhea for 3 weeks. He notes nausea no vomiting. He denies any fever. He states that yesterday he had blood work done and was prescribed medications but they are not helping him. He has been diagnosed in the past with GERD and duodenitis. [facility] Medical History Abdominal pain Alcohol abuse Anxiety Arthritis Back pain Back problem Bipolar disorder Depression Difficulty chewing Difficulty swallowing Drug abuse Enlarged heart Gastric reflux GERD (gastroesophageal reflux disease) Hearing problem Hepatitis History of irregular heartbeat History of ulceration Hoarseness Injury of head and neck Migraine headache Migraines Smoker Ulcer Home Medications fluvoxamine 100 mg tablet 100 mg PO QHS 08/06/18 [History Last Taken Unknown] oxcarbazepine 600 mg tablet 900 mg PO BID 08/06/18 [History Last Taken Unknown] propranolol 20 mg tablet 20 mg PO BID 08/06/18 [History Last Taken Unknown] buprenorphine HCl 2 mg sublingual tablet 8 mg sublingual BID 07/13/19 [History Last Taken 08/13/21] olanzapine 2.5 mg tablet 2.5 mg PO DAILY 08/06/21 [History Last Taken Unknown] ondansetron HCl 4 mg tablet (Zofran) 4 mg PO Q8H 08/06/21 [History Last Taken 08/13/21] ondansetron 4 mg disintegrating tablet 4 mg PO Q8H PRN PRN Nausea #10 tabs 05/21/22 [Rx Last Taken Unknown] omeprazole 20 mg capsule,delayed release 20 mg PO BID #60 caps 05/22/22 [Rx Last Taken Unknown] sucralfate 1 gram tablet (Carafate) 1 g PO TID #90 tabs 05/22/22 [Rx Last Taken Unknown] Allergy/AdvReac Type Severity Reaction Status Date / Time Penicillins Allergy Unknown Rash Verified 05/22/22 09:51 Family History Uncle Diabetes Aunt Diabetes Father Heart disease Alcohol abuse Son Benign brain tumor Surgical History History of facial surgery Hx of hernia repair Hx of neck surgery Social History Smoking Status: Current every day smoker tobacco type: cigarettes alcohol intake: former substance use type: former substance user caffeine: Yes what type of physical activity do you participate in: walking and weight training frequency: 1-2 times per week seatbelt use: always ROS ROS ED Constitutional Constitutional ED: Denies chills or weight loss Eyes Eyes: Denies change in vision or diplopia ENT ENT ED: Denies ear pain, rhinorrhea or sore throat Cardiovascular Cardiovascular: Denies chest pain, orthopnea, palpitations or racing heartbeat Respiratory/Chest Respiratory/Chest: Denies cough, dyspnea or orthopnea Gastrointestinal Gastrointestinal: Reports abdominal pain, diarrhea and nausea; Denies constipation, melena or vomiting Genitourinary Genitourinary ED: Denies dysuria, hematuria or urinary frequency Musculoskeletal Musculoskeletal: Denies arthralgias or myalgias Integumentary Denies abscess or rash Neurologic Neurologic: Denies headache(s) or weakness Psychiatric Psychiatric: Denies anxiety, depression, suicidal ideation or suicidal thoughts Endocrine Endocrinology: Denies polydipsia, polyphagia or polyuria Allergic/Immunologic Allergic/Immunologic ED: Denies mouth swelling, tongue swelling or urticaria EXAM Physical Exam Const Vital Signs: 05/22/22 09:51 Temperature 97.8 F Temperature Source Temporal Pulse Rate 73 Respiratory Rate 16 Blood Pressure 104/79 Blood Pressure Mean 87 Pulse Ox 70 Oxygen Delivery Method Room Air Positive well nourished and well developed General Appearance ED: well developed HEENT Reports normocephalic, head/scalp atraumatic and moist mucous membranes Eyes PERRL and EOMs intact bilaterally Neck no lymphadenopathy, supple and no JVD Resp normal respiratory effort and clear to auscultation bilaterally Cardio regular rate, regular rhythm and no murmurs GI normal to inspection, nondistended, normoactive bowel sounds and non-tender Palpation: soft Back/Spine no CVA tenderness and normal ROM Extremity normal to inspection General Extremety ED: Negative for edema General Extremity: Negative for edema Neuro oriented x3 and CN's II-XII intact bilaterally Sensorium / Orientation: alert Motor Exam: strength 5/5 throughout Psych mental status grossly normal Mood & Affect: Negative for depressed or tearful Skin no rashes or lesions noted and no wounds MDM MDM MDM Narrative Medical decision making narrative: White count is normal at 10.2. Urine is normal. CT of the abdomen pelvis showed bladder wall thickening and inflammatory changes near the seminal vesicles. I do not think that should cause diffuse abdominal pain. The genitalia exam is normal. Patient received Toradol. He is not taking his omeprazole or his Carafate anymore. States he has not been taking them for a while. This is for esophagitis and duodenitis. I will represcribe those. He sees gastroenterology in 2 weeks. Lab Data Attestation: I reviewed the patient's lab results. Labs: Laboratory Results - last 24 hr 05/22/22 05/22/22 10:10 11:15 WBC 10.2 RBC 5.35 Hgb 15.0 Hct 45.1 MCV 84.3 MCH 28.0 MCHC 33.3 RDW Std Deviation 36.8 RDW Coeff of Uzma 12.1 Plt Count 205 MPV 11.5 Immature Gran % (Auto) 0.100 Neut % (Auto) 85.0 H Lymph % (Auto) 9.5 L [place] % (Auto) 3.3 Eos % (Auto) 1.5 Baso % (Auto) 0.6 Absolute Neuts (auto) 8.6 H Absolute Lymphs (auto) 0.96 Nucleated RBC % 0 Urine Color Yellow Urine Clarity Clear Urine pH 5.0 Ur Specific [place] 1.020 Urine Protein 15 H Urine Glucose (UA) Normal Urine Ketones 150 A* Urine Occult Blood Negative Urine Nitrite Negative Urine Bilirubin Negative Urine Urobilinogen Normal Ur Leukocyte Esterase 25 H Urine RBC 0 SEEN Urine WBC 0-5 SEEN Ur Squamous Epith Cells 0-5 SEEN Urine Bacteria 0 SEEN Urine Mucus 0 SEEN Radiography Diagnostic Testing: Clinical Impression(s) from Imaging Studies Abdomen/Pelvis CT 05/22/22 10:39 IMPRESSION: Diffuse bladder wall thickening worse in the bladder base with diffuse enlargement of the seminal vesicles and increased markings in the surrounding fat suggestive of inflammatory change. This has progressed as compared to prior study. Electronically Signed: Fabrizio Chin MD at 11:10 EDT , Discharge Plan Triage Chief Complaint: Abd Pain ED Provider: Kaz Kraft Dx/Rx/DC Orders Clinical Impression: Abdominal pain Instructions: ED Abdominal Pain Unkn Cause Male... Prescriptions: New omeprazole 20 mg capsule,delayed release(DR/EC) 20 mg PO BID Qty: 60 0RF sucralfate [Carafate] 1 gram tablet 1 g PO TID Qty: 90 0RF No Action oxcarbazepine 600 mg tablet 900 mg PO BID fluvoxamine 100 mg tablet 100 mg PO QHS propranolol 20 mg tablet 20 mg PO BID olanzapine 2.5 mg tablet 2.5 mg PO DAILY ondansetron HCl [Zofran] 4 mg tablet 4 mg PO Q8H buprenorphine HCl 2 MG tablet, sublingual 8 mg sublingual BID ondansetron 4 mg tablet,disintegrating 4 mg PO Q8H PRN PRN (Reason: Nausea) Qty: 10 0RF Primary Care Provider: [facility] Referrals: Friend,DO Adriel [STAFF PHYSICIAN] - [facility] - Disposition Disposition: Home, Self Care
[2022-05-22] MEDS: Ketorolac 30 MG/ML Syringe IV (10:21)
[2022-05-22 10:30] LABS: Absolute Lymphocyte Count 0.96 X10^3/uL (0.83-4.51); Absolute Neutrophil Count 8.6 X10^3/uL (2.0-7.7); Basophil# 0.06 X10^3/uL; Basophil% 0.6 % (0-1); Eosinophil# 0.15 X10^3/uL; Eosinophils% 1.5 % (0-5); Hematocrit 45.1 % (40-54); Lymphocyte # 0.96 X10^3/ul (0.83-4.51); Lymphocyte % 9.5 % (19-41); Mean Corp Hgb Conc 33.3 g/dL (32-36); Mean Corpuscular Volume 84.3 fL (80-94); Mean Platelet Vol. 11.5 fl (6.2-12.0); Monocyte# 0.34 X10^3/uL; Monocyte% 3.3 % (0-10); NRBC Flagged by Analyzer 0 % (0-5); Neutrophil # 8.63 X10^3/uL (2.7-7.7); Platelet Count 205 K/mm3 (150-450); RBC Distribution Width CV 12.1 % (11.6-14.6); RBC Distribution Width SD 36.8 fl (35.1-43.9); Red Blood Count 5.35 M/mm3 (4.6-6.2); White Blood Count 10.2 K/mm3 (4.4-11.0)
--- NOTE | 2022-05-22 10:39 | CT_ITS ---
STUDY: CT ABDOMEN AND PELVIS WITH CONTRAST REASON FOR EXAM: Male, 42 years old. ABDOMINAL PAIN RADIATION DOSAGE (If Supplied By Facility): CTDIvol = ( 7.25 ) mGy, DLP = ( 261.82 ) mGycm TECHNIQUE: Transaxial images were obtained from the dome of the diaphragm to the symphysis pubis without oral contrast. IV 100mL Isovue-300 was administered. Sagittal and coronal images were reconstructed. Individualized dose optimization techniques were used for this CT. COMPARISON: Comparison is made with prior study dated 05/02/2021. FINDINGS: Patchy infiltrate at the right lung base. Mild left basilar atelectasis. The visualized portions of the heart are within normal limits. Normal liver. Normal gallbladder and extrahepatic biliary system. Normal spleen. Normal pancreas. Normal bilateral adrenal glands. Normal right kidney. Normal left kidney. Normal visualized stomach. Normal small intestine. Normal colon. The appendix is visualized and appears normal. Normal abdominal aorta. Normal inferior vena cava. Normal retroperitoneum. Diffuse bladder wall thickening more prominent at the bases. Enlargement of the seminal vesicles bilaterally with increased markings in the surrounding fat. Inflammatory changes to be ruled out. Normal abdominal wall. Straightening of the normal lumbar lordosis. CT/Abdomen/Pelvis W IV Cont ONLY IMPRESSION: Diffuse bladder wall thickening worse in the bladder base with diffuse enlargement of the seminal vesicles and increased markings in the surrounding fat suggestive of inflammatory change. This has progressed as compared to prior study. Electronically Signed: Fabrizio Chin MD at 11:10 EDT ,
[2022-05-22 11:22] LABS: Bacteria 0 SEEN /hpf (None Seen); Mucous, Urine 0 SEEN /hpf (<or=2+); Red Blood Cells-Urine 0 SEEN /hpf (0-5)
[2022-05-22 11:24] LABS: Color, Urine Yellow (Yellow); Glucose, Dipstick Normal (Normal); Leukocyte Esterase-Dipstick 25 /ul (Negative); Nitrite-Dipstick Negative (Negative); Occult Blood-Urine Negative /ul (Negative); Protein-Dipstick 15 mg/dl (Negative); Urine Bilirubin Dipstick Negative (Negative); Urine Clarity Clear (Clear); Urine Urobilinogen Normal (Normal)
[2022-05-22 11:34] LABS: Ketone-Dipstick 150 mg/dl (Negative)
[2022-05-22 11:38] LABS: Squamous Epithelial Cells - UA 0-5 SEEN /hpf (0-5); White Blood Cells 0-5 SEEN /hpf (0-5)
[2022-05-22 12:12] VITALS: BP 129/82; PULSE 64; RESP 15; O2SAT 98
== END 2022-05-22 12:13 | disposition home or self-care (01) ==
PROVIDERS: Emergency Provider Emergency Medicine; Visit Provider Emergency Medicine
DX: R10.9 Unspecified abdominal pain (principal); R93.41 Abnormal radiologic findings on diagnostic imaging of renal pelvis, ureter, or bladder; F17.210 Nicotine dependence, cigarettes, uncomplicated; K21.9 Gastro-esophageal reflux disease without esophagitis
CPT/HCPCS: 74177; 81001; 85025; 96374; 99282; Q9967; A4216

== ENCOUNTER → 2022-07-15 | Outpatient (CLI) | payer MEDICAID, SELFPAY ==
[2022-07-15 12:53] LABS: Absolute Lymphocyte Count 1.68 X10^3/uL (0.83-4.51); Absolute Neutrophil Count 14.2 X10^3/uL (2.0-7.7); Basophil# 0.05 X10^3/uL; Basophil% 0.3 % (0-1); Eosinophils% 1.7 % (0-5); Hematocrit 46.9 % (40-54); Hemoglobin 15.3 g/dL (13.0-16.5); Lymphocyte # 1.68 X10^3/ul (0.83-4.51); Lymphocyte % 9.6 % (19-41); Mean Corp Hgb Conc 32.6 g/dL (32-36); Mean Corpuscular Hgb 27.7 pg (27.0-32.0); Mean Corpuscular Volume 84.8 fL (80-94); Mean Platelet Vol. 11.6 fl (6.2-12.0); Monocyte# 1.11 X10^3/uL; Monocyte% 6.4 % (0-10); NRBC Flagged by Analyzer 0 % (0-5); Neutrophil # 14.24 X10^3/uL (2.7-7.7); Neutrophil % 81.8 % (47-70); Platelet Count 221 K/mm3 (150-450); RBC Distribution Width CV 12.9 % (11.6-14.6); RBC Distribution Width SD 39.9 fl (35.1-43.9); Red Blood Count 5.53 M/mm3 (4.6-6.2); White Blood Count 17.4 K/mm3 (4.4-11.0)
[2022-07-15 13:11] LABS: Erythrocyte Sedimentation Rate 11 mm/hr (0-20)
[2022-07-15 13:23] LABS: AST(SGOT) 15 U/L (15-37); Alanine Aminotransfer ALT/SGPT 18 U/L (16-61); Albumin, Serum 3.7 g/dL (3.2-5.0); Alkaline Phosphatase 102 U/L (45-117); Anion Gap 5 (5-15); BUN 14 mg/dL (7-18); BUN/Creat Ratio 15.7 RATIO (10-20); Calcium,Total 8.5 mg/dL (8.5-10.1); Chloride 105 mmol/L (98-107); Creatinine, Serum 0.89 mg/dL (0.70-1.30); EST Glomerular Filtration Rate 100 mL/min (>60); Est Glom Filt Rate - Afr Amer 121 mL/min (>60); Globulin 3.7 g/dL (2.2-4.2); Glucose 88 mg/dL (74-106); LDH 232 U/L (87-241); Potassium 3.9 mmol/L (3.5-5.1); Protein, Total 7.4 g/dL (6.4-8.2); Sodium Level 140 mmol/L (136-145)
[2022-07-15 14:17] LABS: Hepatitis C Antibody Preliminary Reactive (Nonreactive)
[2022-07-16 13:07] LABS: Anti-Centromere B Ab <0.2 AI (0.0-0.9); Anti-Chromatin <0.2 AI (0.0-0.9); Anti-Jo <0.2 AI (0.0-0.9); Anti-Scleroderma-70 AB <0.2 AI (0.0-0.9); RNP Ab 0.9 AI (0.0-0.9); SJOGREN'S Anti-SS-A test < 0.2 AI (0.0-0.9); SJOGREN'S Anti-SS-B test 1.7 AI (0.0-0.9); Smith Ab <0.2 AI (0.0-0.9)
[2022-07-16 16:09] LABS: Endomysial Antibody IgA Negative (Negative)
[2022-07-17 13:30] LABS: Immunoglobulin A 202 mg/dL (90-386); t-Transglutaminase IgA 5 U/mL (0-3)
[2022-07-17 15:16] LABS: Anti-dsDNA Ab 2 IU/mL (0-9)
== END | disposition home or self-care (01) ==
LOC: LAB 11:36
PROVIDERS: Referring Provider Internal Medicine Gastroenterology; Visit Provider Internal Medicine Gastroenterology
DX: R10.9 Unspecified abdominal pain (principal); R19.7 Diarrhea, unspecified; B19.20 Unspecified viral hepatitis C without hepatic coma
CPT/HCPCS: 87902; 36415; 80053; 82784; 82785; 83516; 83615; 84165; 85025; 85652; 86140; 86225; 86235; 86255; 86256; 86334; 86803; 87522

== ENCOUNTER → 2022-08-05 | Outpatient (CLI) | payer MEDICAID, SELFPAY ==
[2022-08-08 19:23] LABS: Calprotectin, Stool <16 ug/g (0-120)
== END | disposition home or self-care (01) ==
LOC: LABSPEC 11:57
PROVIDERS: Visit Provider Internal Medicine Gastroenterology
DX: K58.9 Irritable bowel syndrome, unspecified (principal); R10.9 Unspecified abdominal pain; R19.7 Diarrhea, unspecified
CPT/HCPCS: 83630; 83993

== ENCOUNTER 2022-09-11 05:17 | Day surgery (SDC) | payer MEDICAID, SELFPAY ==
--- NOTE | 2022-09-11 | COLBX_PTH ---
PATIENT: DEMI MCNAMARA LOC: [facility] U#:[id number] AGE/SX: 42/M ROOM: RE09/11/[address]: Dr. Adriel Godwin DO : 1980 BED: DIS: 09/11/2022 SPEC #: [id number] RECD: 09/11/22 14:59 STATUS: KWESI RENATA #: [id number] KENYATTA: 09/11/22 00:[address]: Adriel Godwin DEPT: SURGICAL PATHOLOGY RECD BY: Stephen Phan ENTERED: 09/11/22 15:00 SP TYPE: COLON BX OTHR DR: Priyanka Primary Care Phys Tissues: A - Duodenum, NOS B - Ileum, NOS C - COLON BIOPSY Procedures: Surgery Specimen Level IV HEADER OPERATION: Colonoscopy, EGD ([facility]), biopsy PRE-OP DIAGNOSIS: Celiac disease TISSUE SUBMITTED: A ? Duodenum biopsy, B ? Terminal ileum biopsy, C ? Random colonic biopsy MICROSCOPIC DIAGNOSIS A. Duodenum, biopsy: Focal gastric metaplasia. B. Terminal ileum, biopsy: No pathologic change. C. Colon, random biopsy: No pathologic change. AM:blaire 09/12/2022 MICROSCOPIC DESCRIPTION Slides are reviewed. GROSS DESCRIPTION A - Received in fixative is one container labeled with the patient's name and designated duodenal biopsy. The specimen consists of multiple irregular fragments of light cotton soft tissue that in aggregate measure 1 x 0.6 x 0.1 cm. The specimen is totally submitted in one cassette. B - Received in fixative is one container labeled with the patient's name and designated terminal ileum. The specimen consists of two irregular fragments of light cotton soft tissue that in aggregate measure 0.8 x 0.3 x 0.1 cm. The specimen is totally submitted in one cassette. C - Received in fixative is one container labeled with the patient's name and designated random colon biopsy. The specimen consists of multiple irregular fragments of light cotton soft tissue that in aggregate measure 1.5 x 1 x 0.1 cm. The specimen is totally submitted in one cassette. / AM:blaire 09/11/2022 TC:5 CPT: 29027 x3
[2022-09-11 05:53] VITALS: BP 108/72; PULSE 62; RESP 18; TEMP 36.8; O2SAT 92; BMI 19.1
[2022-09-11] MEDS: Lactated Ringers 1,000 ML 15 ML IV (06:06)
--- NOTE | 2022-09-11 06:42 | HP.PCM_ITS ---
History and Physical Date of Admission: 09/11/22 LOLIS MCNAMARA, is a 42 M who presents to the office today for Follow up visit. Jose established with this clinic 08.06.21 for evaluation of hepatitis C, esophageal dysphagia, GERD. Symptoms last visit included headaches, difficulty swallowing, hoarseness, nausea and vomiting. Medications Carafate TID, he had not started this at last visit. He was picking it up after that appointment. EGD performed 08.13.21 with small sliding hiatal hernia; duodenitis; LA Grade B reflux esophagitis noted. Start Carafate 1gram TID ordered for one month. Biochemical workup ANCA, IgGA, DARRIAN, CBC, ESR, CMP, LDH CRP H12.20, SS-B IgG H1.7, celiac Tiss transglutamin H5, IgM H202, IgE L<2 HCV ab reactive HCV viral load HCV not detected HCV genotype insufficient viral copy, TNP Stool lactoferrin, calprotectin WNL Jose called 07.17.22 to report that he is having a bad reaction to the Buspar and his symptoms have not resolved; he is worried about losing his job. Zofran scheduled Q6h started with promethazine PRN and recommendation to use double dose of MiraLAX for constipation. Asked to call clinic once he turns in stool samples. Plan last visit 07.15.21: Hepatitis C ? check PCR RNA quant and genotype. Esophageal dysphagia? secondary to LA grade B erosive esophagitis. Believe to be caused by inability to take omeprazole and cough induced reflux from smoking. GERD ? start omeprazole BID and Carafate TID. Post nasal drip noted, treat with prednisone and azithromycin. Since elimination of gluten he has been having a reduction of nausea and resolution of emesis. Continues to have left and right abdominal discomfort in the morning with resolution following BM (BM each day and is normally soft or loose without blood or mucous). ROS Const Constitutional: Positive for headache(s) ENT ENT: Positive for headache(s), difficulty swallowing and hoarseness Resp Respiratory: Positive for shortness of breath and wheezing Cardio Cardiology: Positive for dyspnea on exertion Gastro GI: Positive for difficulty swallowing, nausea/dyspepsia and vomiting Genitourinary Male: Positive for urinary urgency Musc Musculoskeletal: Positive for back pain, muscle cramps and Arthritis Skin Skin: Positive for dry skin and itchy eyes Neuro Neurology: Positive for headache(s) Psych Psychiatric: Positive for anxiety, Positive for depression and Positive for Behavioral Problems Aller/Imm Allergy/Immunologic: Positive for itchy eyes and wheezing Exam Const General: cooperative and comfortable Nutritional Appearance: average body habitus and well nourished [facility] Head: normal to inspection Ears: hearing grossly normal bilaterally Nose: external nose normal Face and sinus: normal facial exam Mouth: oral mucosae normal Throat: posterior oropharynx normal Eyes General: appearance normal, both eyes and all related structures Neck Neck: normal visual inspection Chest Chest palpation & inspection: normal inspection of the chest and normal palpation of entire chest wall Resp Effort & Inspection: normal respiratory effort Auscultation: Bilateral: Clear to Auscultation Cardio Palpation: normal PMI Rate: regular rate Rhythm: regular rhythm GI Inspection: normal to inspection Auscultation: normal bowel sounds Percussion: normal to percussion Palpation: no hepatosplenomegaly Skin General: no rashes or lesions noted Neuro General: patient alert Extrem General: normal to inspection Psych Affect: normal affect Quality Reporting Tobacco Screening ([facility] 138) Smoking Status: Current every day smoker Assessment and Plan Assessment and Plan (1) Celiac disease: ?Status:?Chronic ?Plan: Patient is an active diagnosis with celiac disease.? His symptoms are weight loss, anemia, diarrhea.? His tissue transglutaminase is elevated along with his ESR and CRP.? He is compliant with a gluten-free diet for the most part.? He does not have any rash, vitamin deficiency, osteopenia or osteoporosis.? But he does have I believe the microscopic colitis associated with celiac disease. (2) Diarrhea: ?Status:?Chronic ?Plan: He will undergo repeat upper endoscopy and colonoscopy at this time.? We will perform biopsies we will also do stool testing during the study..? He will get a capsule endoscopy because he is ANCA positive, GETACHEW positive and SSA be positive.? He could also be having some intermittent problems from Sjogren's syndrome including small bacterial overgrowth and pancreatic insufficiency.? We will refer him to rheumatology as we will check his stools for fecal elastase and fecal fat. ? ? ? Medications: New hyoscyamine sulfate 0.125 mg? PO TID 30 days PRN 90 tabs 0RF dyspepsia ? ? I have examined the patient and the H&P has been reviewed. There are no clinical changes since date of exam.
--- NOTE | 2022-09-11 07:18 | OP.EGD_ITS ---
Patient Name: Jose Ludwig Procedure Date: 09/11/2022 6:13 AM Date of : 1980 Age: 42 Procedure: Upper GI endoscopy Indications: Epigastric abdominal pain, Functional Dyspepsia, Failure to respond to medical treatment Providers: Adriel Godwin DO Medicines: Monitored Anesthesia Care Patient Profile: This is a 42 year old male. Refer to note in patient chart for documentation of history and physical. Patient has symptoms of chronic abdominal cramping and chronic nausea. Complications: No immediate complications. Procedure: Pre-Anesthesia Assessment: - Prior to the procedure, a History and Physical was performed, and patient medications and allergies were reviewed. The risks and benefits of the procedure and the sedation options and risks were discussed with the patient. All questions were answered and informed consent was obtained. Patient identification and proposed procedure were verified by the physician in the pre-procedure area. Mental Status Examination: alert and oriented. Airway Examination: normal oropharyngeal airway and neck mobility. Respiratory Examination: clear to auscultation. CV Examination: normal. Prophylactic Antibiotics: The patient does not require prophylactic antibiotics. Prior Anticoagulants: The patient has taken no previous anticoagulant or antiplatelet agents. After reviewing the risks and benefits, the patient was deemed in satisfactory condition to undergo the procedure. The anesthesia plan was to use monitored anesthesia care (MAC). Immediately prior to administration of medications, the patient was re-assessed for adequacy to receive sedatives. The heart rate, respiratory rate, oxygen saturations, blood pressure, adequacy of pulmonary ventilation, and response to care were monitored throughout the procedure. The physical status of the patient was re-assessed after the procedure. After obtaining informed consent, the endoscope was passed under direct vision. Throughout the procedure, the patient's blood pressure, pulse, and oxygen saturations were monitored continuously. The Colonoscope was introduced through the mouth, and advanced to the third part of duodenum. The upper GI endoscopy was accomplished without difficulty. The patient tolerated the procedure well. Scope In: 6:48:08 AM Scope Out: 6:57:12 AM Total Procedure Duration Time 0 hours 9 minutes 4 seconds Findings: The examined esophagus was normal. The entire examined stomach was normal. Patchy moderate inflammation characterized by congestion (edema) and granularity was found in the duodenal bulb, in the first portion of the duodenum and in the second portion of the duodenum. Biopsies were taken with a cold forceps for histology. Biopsies for histology were taken with a cold forceps for evaluation of celiac disease. Verification of patient identification for the specimen was done. Estimated blood loss was minimal. Impression: - Normal esophagus. - Normal stomach. - Chronic duodenitis. Biopsied. Recommendation: - Discharge patient to home. - Resume previous diet. - Continue present medications. - Await pathology results. Procedure Code(s): --- Professional --- 00003, Esophagogastroduodenoscopy, flexible, transoral; with biopsy, single or multiple CPT copyright 2017 [employer]. All rights reserved. The codes documented in this report are preliminary and upon supervising film or videotape editor review may be revised to meet current compliance requirements. Adriel Godwin DO 09/11/2022 7:17:57 AM This report has been signed electronically. Number of Addenda: 0 Note Initiated On: 09/11/2022 6:13 AM
--- NOTE | 2022-09-11 07:19 | OP.CCLET_ITS ---
09/11/2022 No Primary Care Physician Re : Upper GI endoscopy procedure for Jose [facility] Physician This procedure was performed on August. My impressions and recommendations are as follows: Impressions : - Normal esophagus. - Normal stomach. - Chronic duodenitis. Biopsied. Recommendations : - Discharge patient to home. - Resume previous diet. - Continue present medications. - Await pathology results. My findings are described in the full procedure note, which is enclosed. If I can be of further assistance, please feel free to contact me at . Sincerely, Adriel Godwin, DO 09/11/2022 7:17:57 AM This report has been signed electronically.
[2022-09-11 07:20] VITALS: BP 108/72; BP 132/95; PULSE 90; RESP 18; TEMP 36.3; O2SAT 96
--- NOTE | 2022-09-11 07:20 | OP.CCLET_ITS ---
09/11/2022 No Primary Care Physician Re : Colonoscopy procedure for [facility] Phys[facility] This procedure was performed on August. My impressions and recommendations are as follows: Impressions : - The entire examined colon is normal. Biopsied. - A few ulcers in the distal ileum. Biopsied. Recommendations : - Discharge patient to home. - Resume previous diet. - Continue present medications. - Await pathology results. - Repeat colonoscopy in 5 years for surveillance. My findings are described in the full procedure note, which is enclosed. If I can be of further assistance, please feel free to contact me at . Sincerely, Adriel Godwin, 09/11/2022 7:20:18 AM This report has been signed electronically.
--- NOTE | 2022-09-11 07:20 | OP.COLON_ITS ---
Patient Name: Jose Ludwig Procedure Date: 09/11/2022 6:13 AM Date of : 1980 Age: 42 Procedure: Colonoscopy Indications: Clinically significant diarrhea of unexplained origin Providers: Adriel Godwin DO Medicines: Monitored Anesthesia Care Patient Profile: This is a 42 year old male. Refer to note in patient chart for documentation of history and physical. Last Colonoscopy: none. The patient's first colonoscopy is today. Complications: No immediate complications. Procedure: Pre-Anesthesia Assessment: - Prior to the procedure, a History and Physical was performed, and patient medications and allergies were reviewed. The patient is competent. The risks and benefits of the procedure and the sedation options and risks were discussed with the patient. All questions were answered and informed consent was obtained. Patient identification and proposed procedure were verified by the physician in the pre-procedure area. Mental Status Examination: alert and oriented. Airway Examination: normal oropharyngeal airway and neck mobility. Respiratory Examination: clear to auscultation. CV Examination: normal. ASA Grade Assessment: II - A patient with mild systemic disease. After reviewing the risks and benefits, the patient was deemed in satisfactory condition to undergo the procedure. The anesthesia plan was to use monitored anesthesia care (MAC). Immediately prior to administration of medications, the patient was re-assessed for adequacy to receive sedatives. The heart rate, respiratory rate, oxygen saturations, blood pressure, adequacy of pulmonary ventilation, and response to care were monitored throughout the procedure. The physical status of the patient was re-assessed after the procedure. After I obtained informed consent, the scope was passed under direct vision. Throughout the procedure, the patient's blood pressure, pulse, and oxygen saturations were monitored continuously. The gastroscope was introduced through the anus and advanced to the terminal ileum. The colonoscopy was performed without difficulty. The patient tolerated the procedure well. The quality of the bowel preparation was good. Scope In: 6:59:16 AM Scope Withdrawal Time 0 hours 10 minutes 35 seconds Scope Out: 7:13:20 AM Total Procedure Duration Time 0 hours 14 minutes 4 seconds Findings: The perianal and digital rectal examinations were normal. The colon (entire examined portion) appeared normal. Biopsies were taken with a cold forceps for histology. Verification of patient identification for the specimen was done. Estimated blood loss was minimal. The distal ileum contained a few two mm ulcers. No bleeding was present. No stigmata of recent bleeding were seen. Biopsies were taken with a cold forceps for histology. Verification of patient identification for the specimen was done. Estimated blood loss was minimal. Impression: - The entire examined colon is normal. Biopsied. - A few ulcers in the distal ileum. Biopsied. Recommendation: - Discharge patient to home. - Resume previous diet. - Continue present medications. - Await pathology results. - Repeat colonoscopy in 5 years for surveillance. Procedure Code(s): --- Professional --- 64423, Colonoscopy, flexible; with biopsy, single or multiple CPT copyright 2017 [employer]. All rights reserved. The codes documented in this report are preliminary and upon carbide powder processor review may be revised to meet current compliance requirements. Adriel Godwin DO 09/11/2022 7:20:18 AM This report has been signed electronically. Number of Addenda: 0 Note Initiated On: 09/11/2022 6:13 AM
[2022-09-11 07:25] VITALS: BP 108/72; BP 149/96; PULSE 81; RESP 18; O2SAT 98
[2022-09-11 07:30] VITALS: BP 108/72; BP 148/101; PULSE 68; RESP 18; O2SAT 99
[2022-09-11 07:35] VITALS: BP 108/72; BP 162/97; PULSE 66; RESP 18; TEMP 36.6; O2SAT 99
[2022-09-11 07:49] VITALS: BP 108/72
== END 2022-09-11 07:54 | disposition home or self-care (01) ==
LOC: EN 05:17 → AC 05:19
PROVIDERS: Visit Provider Internal Medicine Gastroenterology
PROC: 0DJD8ZZ Inspection of Lower Intestinal Tract, Via Natural or Artificial Opening Endoscopic (ICD-10-PCS; CPT 45378; principal; 2022-09-11 06:25)
DX: K90.0 Celiac disease (principal); M35.00 Sjogren syndrome, unspecified; D64.9 Anemia, unspecified; K29.80 Duodenitis without bleeding; K86.89 Other specified diseases of pancreas; F17.200 Nicotine dependence, unspecified, uncomplicated
CPT/HCPCS: 45380; 43239; 88305; J7120; J2405

== ENCOUNTER → 2022-09-26 | Outpatient (CLI) | payer MEDICAID, SELFPAY | END | disposition home or self-care (01) | PROVIDERS: Referring Provider Internal Medicine Gastroenterology; Visit Provider Internal Medicine Gastroenterology | DX: R19.7 Diarrhea, unspecified (principal) | CPT/HCPCS: 36415 ==

== ENCOUNTER → 2022-11-13 | Outpatient (CLI) | payer MEDICAID, SELFPAY ==
[2022-11-13 10:35] LABS: Absolute Lymphocyte Count 3.14 X10^3/uL (0.83-4.51); Absolute Neutrophil Count 8.4 X10^3/uL (2.0-7.7); Basophil# 0.04 X10^3/uL; Basophil% 0.3 % (0-1); Eosinophil# 0.23 X10^3/uL; Eosinophils% 1.8 % (0-5); Hemoglobin 15.3 g/dL (13.0-16.5); Lymphocyte # 3.14 X10^3/ul (0.83-4.51); Lymphocyte % 24.2 % (19-41); Mean Corp Hgb Conc 33.3 g/dL (32-36); Mean Corpuscular Hgb 29.2 pg (27.0-32.0); Mean Corpuscular Volume 87.8 fL (80-94); Mean Platelet Vol. 10.4 fl (6.2-12.0); Monocyte# 1.13 X10^3/uL; Monocyte% 8.7 % (0-10); NRBC Flagged by Analyzer 0 % (0-5); Neutrophil # 8.35 X10^3/uL (2.7-7.7); Neutrophil % 64.5 % (47-70); Platelet Count 224 K/mm3 (150-450); RBC Distribution Width CV 13.1 % (11.6-14.6); Red Blood Count 5.24 M/mm3 (4.6-6.2)
[2022-11-13 11:13] LABS: AST(SGOT) 8 U/L (15-37); Alanine Aminotransfer ALT/SGPT 17 U/L (16-61); Albumin, Serum 3.3 g/dL (3.2-5.0); Alkaline Phosphatase 65 U/L (45-117); Anion Gap 0 (5-15); BUN 19 mg/dL (7-18); BUN/Creat Ratio 30.5 RATIO (10-20); Calcium,Total 8.6 mg/dL (8.5-10.1); Chloride 105 mmol/L (98-107); Creatinine, Serum 0.62 mg/dL (0.70-1.30); EST Glomerular Filtration Rate 151 mL/min (>60); Est Glom Filt Rate - Afr Amer 182 mL/min (>60); Globulin 3.4 g/dL (2.2-4.2); Glucose 86 mg/dL (74-106); Potassium 4.2 mmol/L (3.5-5.1); Protein, Total 6.7 g/dL (6.4-8.2); Sodium Level 138 mmol/L (136-145)
== END | disposition home or self-care (01) ==
LOC: LAB 09:37
PROVIDERS: Referring Provider Internal Medicine Gastroenterology; Visit Provider Internal Medicine Gastroenterology
DX: K50.90 Crohn's disease, unspecified, without complications (principal)
CPT/HCPCS: 36415; 80053; 85025

== ENCOUNTER → 2022-11-27 | Outpatient (CLI) | payer MEDICAID, SELFPAY ==
[2022-11-27 11:04] LABS: Erythrocyte Sedimentation Rate 16 mm/hr (0-20)
[2022-11-27 11:06] LABS: Absolute Lymphocyte Count 1.18 X10^3/uL (0.83-4.51); Absolute Neutrophil Count 7.6 X10^3/uL (2.0-7.7); Basophil# 0.03 X10^3/uL; Basophil% 0.3 % (0-1); Eosinophil# 0.16 X10^3/uL; Eosinophils% 1.6 % (0-5); Hematocrit 46.6 % (40-54); Hemoglobin 15.6 g/dL (13.0-16.5); Lymphocyte # 1.18 X10^3/ul (0.83-4.51); Lymphocyte % 12.1 % (19-41); Mean Corp Hgb Conc 33.5 g/dL (32-36); Mean Corpuscular Volume 86.6 fL (80-94); Mean Platelet Vol. 11.1 fl (6.2-12.0); Monocyte# 0.77 X10^3/uL; Monocyte% 7.9 % (0-10); NRBC Flagged by Analyzer 0 % (0-5); Neutrophil # 7.62 X10^3/uL (2.7-7.7); Platelet Count 204 K/mm3 (150-450); RBC Distribution Width CV 13.1 % (11.6-14.6); RBC Distribution Width SD 41.1 fl (35.1-43.9); Red Blood Count 5.38 M/mm3 (4.6-6.2); White Blood Count 9.8 K/mm3 (4.4-11.0)
[2022-11-27 11:24] LABS: AST(SGOT) 10 U/L (15-37); Alanine Aminotransfer ALT/SGPT 16 U/L (16-61); Albumin, Serum 3.6 g/dL (3.2-5.0); Alkaline Phosphatase 93 U/L (45-117); Anion Gap 1 (5-15); BUN 10 mg/dL (7-18); BUN/Creat Ratio 14.2 RATIO (10-20); CRP 4.83 mg/L (0.0-3.0); Calcium,Total 8.7 mg/dL (8.5-10.1); Chloride 110 mmol/L (98-107); EST Glomerular Filtration Rate 131 mL/min (>60); Est Glom Filt Rate - Afr Amer 159 mL/min (>60); Globulin 3.5 g/dL (2.2-4.2); Glucose 121 mg/dL (74-106); Potassium 4.1 mmol/L (3.5-5.1); Protein, Total 7.1 g/dL (6.4-8.2); Sodium Level 141 mmol/L (136-145)
[2022-11-28 15:08] LABS: Endomysial Antibody IgA Negative (Negative)
[2022-11-28 17:15] LABS: Immunoglobulin A 203 mg/dL (90-386); t-Transglutaminase IgA <2 U/mL (0-3)
== END | disposition home or self-care (01) ==
PROVIDERS: Referring Provider Internal Medicine Gastroenterology; Visit Provider Internal Medicine Gastroenterology
DX: K50.90 Crohn's disease, unspecified, without complications (principal); K90.0 Celiac disease
CPT/HCPCS: 36415; 80053; 82784; 83516; 85025; 85652; 86140; 86255

== ENCOUNTER → 2023-03-03 | Outpatient (CLI) | payer BC, MEDICAID, SELFPAY ==
--- NOTE | 2023-03-03 07:47 | CT_ITS ---
STUDY: CT ABDOMEN AND PELVIS WITH CONTRAST REASON FOR EXAM: Male, 42 years old. Left lower quadrant pain. Prior hernia repair. History of celiac disease and Crohn''s disease. RADIATION DOSAGE (If Supplied By Facility): CTDIvol = ( 8.5 ) mGy, DLP = ( 534.14 ) mGycm TECHNIQUE: Transaxial images were obtained from the dome of the diaphragm to the symphysis pubis with oral contrast. Oral and amp; IV Readi-CAT and amp; 100mL Isovue-300 was administered. Sagittal and coronal images were reconstructed. Individualized dose optimization techniques were used for this CT. COMPARISON: Comparison is made with prior study dated May 22, 2022. FINDINGS: Stable minimal increased markings at the lung bases suggestive of atelectasis. The visualized portions of the heart are within normal limits. Normal liver. Normal gallbladder and extrahepatic biliary system. Normal spleen. Normal pancreas. Normal bilateral adrenal glands. Normal right kidney. Normal left kidney. Normal visualized stomach. Normal small intestine. Moderate amount of fecal material is seen throughout the colon. Scattered sigmoid diverticula. There is non-visualization of the appendix. Normal abdominal aorta. Normal inferior vena cava. Normal retroperitoneum. Diffuse bladder wall thickening. Normal abdominal wall. Normal osseous structures. CT/Abdomen/Pelvis WITH Contrast IMPRESSION: Diffuse bladder wall thickening. Scattered sigmoid diverticula. Electronically Signed: Fabrizio Chin MD at 15:14 EDT ,
== END | disposition home or self-care (01) ==
LOC: CT 07:46
PROVIDERS: Visit Provider Internal Medicine Gastroenterology
DX: K50.90 Crohn's disease, unspecified, without complications (principal)
CPT/HCPCS: 74177; Q9967

== ENCOUNTER → 2023-03-27 | Outpatient (CLI) | payer BC, MEDICAID, SELFPAY ==
--- NOTE | 2023-03-27 08:25 | RAD_ITS ---
STUDY: X-RAY - ABDOMEN/PELVIS REASON FOR EXAM: Male, 42 years old. ?Constipation TECHNIQUE: Single AP view of the abdomen / pelvis. COMPARISON: None. FINDINGS: Normal visualized lung bases. There is a moderate amount of colonic fecal material. The visualized liver, spleen and kidneys are grossly normal in size and morphology. There are calcified phleboliths in the pelvis. Normal visualized osseous structures. RAD/Abdomen Single View IMPRESSION: Moderate amount of fecal material is seen in the colon. Electronically Signed: Fabrizio Chin MD at 15:08 EDT ,
[2023-03-27 09:11] LABS: ALB/GLOB Ratio 1.1 RATIO (0.9-2.4); AST(SGOT) 13 U/L (15-37); Alanine Aminotransfer ALT/SGPT 21 U/L (16-61); Albumin, Serum 3.8 g/dL (3.2-5.0); Alkaline Phosphatase 91 U/L (45-117); Anion Gap 7 (5-15); BUN 15 mg/dL (7-18); Calcium,Total 9.2 mg/dL (8.5-10.1); Chloride 101 mmol/L (98-107); Creatinine, Serum 0.79 mg/dL (0.70-1.30); EST Glomerular Filtration Rate 115 mL/min (>60); Est Glom Filt Rate - Afr Amer 139 mL/min (>60); Globulin 3.6 g/dL (2.2-4.2); Glucose 119 mg/dL (74-106); Potassium 3.7 mmol/L (3.5-5.1); Protein, Total 7.4 g/dL (6.4-8.2); Sodium Level 137 mmol/L (136-145)
[2023-03-27 09:19] LABS: Erythrocyte Sedimentation Rate 9 mm/hr (0-20)
[2023-03-27 09:22] LABS: Absolute Lymphocyte Count 1.71 X10^3/uL (0.83-4.51); Absolute Neutrophil Count 11.2 X10^3/uL (2.0-7.7); Basophil# 0.08 X10^3/uL; Basophil% 0.6 % (0-1); Eosinophil# 0.08 X10^3/uL; Eosinophils% 0.6 % (0-5); Hemoglobin 17.9 g/dL (13.0-16.5); Lymphocyte # 1.71 X10^3/ul (0.83-4.51); Lymphocyte % 11.9 % (19-41); Mean Corp Hgb Conc 33.1 g/dL (32-36); Mean Corpuscular Hgb 29.7 pg (27.0-32.0); Mean Corpuscular Volume 89.6 fL (80-94); Mean Platelet Vol. 10.5 fl (6.2-12.0); Monocyte# 1.24 X10^3/uL; Monocyte% 8.6 % (0-10); NRBC Flagged by Analyzer 0 % (0-5); Neutrophil # 11.22 X10^3/uL (2.7-7.7); Neutrophil % 77.7 % (47-70); Platelet Count 253 K/mm3 (150-450); RBC Distribution Width CV 13.3 % (11.6-14.6); RBC Distribution Width SD 43.5 fl (35.1-43.9); Red Blood Count 6.03 M/mm3 (4.6-6.2); White Blood Count 14.4 K/mm3 (4.4-11.0)
[2023-03-30 14:08] LABS: Endomysial Antibody IgA Negative (Negative); Immunoglobulin A 211 mg/dL (90-386); t-Transglutaminase IgA <2 U/mL (0-3)
== END | disposition home or self-care (01) ==
LOC: LAB 08:11
PROVIDERS: Referring Provider Internal Medicine Gastroenterology; Visit Provider Internal Medicine Gastroenterology
DX: K50.90 Crohn's disease, unspecified, without complications (principal); K90.0 Celiac disease
CPT/HCPCS: 36415; 74018; 80053; 82784; 83516; 85025; 85652; 86140; 86255

== ENCOUNTER → 2023-06-17 | Outpatient (CLI) | payer BC, MEDICAID, SELFPAY ==
[2023-06-17 12:23] LABS: Absolute Lymphocyte Count 1.02 X10^3/uL (0.83-4.51); Absolute Neutrophil Count 3.5 X10^3/uL (2.0-7.7); Basophil# 0.05 X10^3/uL; Basophil% 0.9 % (0-1); Eosinophil# 0.21 X10^3/uL; Eosinophils% 3.9 % (0-5); Hematocrit 49.4 % (40-54); Hemoglobin 15.9 g/dL (13.0-16.5); Lymphocyte # 1.02 X10^3/ul (0.83-4.51); Lymphocyte % 19.1 % (19-41); Mean Corp Hgb Conc 32.2 g/dL (32-36); Mean Corpuscular Hgb 29.2 pg (27.0-32.0); Mean Corpuscular Volume 90.6 fL (80-94); Mean Platelet Vol. 10.6 fl (6.2-12.0); Monocyte# 0.53 X10^3/uL; Monocyte% 9.9 % (0-10); NRBC Flagged by Analyzer 0 % (0-5); Neutrophil % 65.8 % (47-70); Platelet Count 191 K/mm3 (150-450); RBC Distribution Width CV 13.1 % (11.6-14.6); RBC Distribution Width SD 43.2 fl (35.1-43.9); Red Blood Count 5.45 M/mm3 (4.6-6.2); White Blood Count 5.3 K/mm3 (4.4-11.0)
[2023-06-17 13:01] LABS: Hemoglobin A1c 5.1 % (3.8-5.6)
[2023-06-17 13:30] LABS: ALB/GLOB Ratio 0.8 RATIO (0.9-2.4); AST(SGOT) 17 U/L (15-37); Alanine Aminotransfer ALT/SGPT 19 U/L (16-61); Albumin, Serum 3.2 g/dL (3.2-5.0); Alkaline Phosphatase 98 U/L (45-117); Anion Gap 4 (5-15); BUN 10 mg/dL (7-18); BUN/Creat Ratio 14.8 RATIO (10-20); Calcium,Total 8.3 mg/dL (8.5-10.1); Chloride 110 mmol/L (98-107); Cholesterol 132 mg/dL (200); Creatinine, Serum 0.68 mg/dL (0.70-1.30); EST Glomerular Filtration Rate 137 mL/min (>60); Est Glom Filt Rate - Afr Amer 166 mL/min (>60); Globulin 3.8 g/dL (2.2-4.2); Glucose 108 mg/dL (74-106); High Density Lipoprotein 37 mg/dL; Potassium 4.1 mmol/L (3.5-5.1); Sodium Level 141 mmol/L (136-145); Thyroid Stim Hormone (TSH) 0.66 uIU/mL (0.358-3.74); Triglycerides 105 mg/dL; Very Low Density Lipoprotein 21 mg/dL (5-40)
== END | disposition home or self-care (01) ==
PROVIDERS: Visit Provider Internal Medicine
DX: M35.08 Sjogren syndrome with gastrointestinal involvement (principal); F31.9 Bipolar disorder, unspecified; K50.90 Crohn's disease, unspecified, without complications; N52.9 Male erectile dysfunction, unspecified
CPT/HCPCS: 36415; 80053; 80061; 83036; 84153; 84443; 85025; G0103

== ENCOUNTER → 2023-07-08 | Outpatient (CLI) | payer BC, MEDICAID, SELFPAY ==
--- NOTE | 2023-07-08 09:39 | ECHOD_ITS ---
Reason For Study: DYSPNEA Procedure This was a 2D Doppler, Color Flow transthoracic echocardiogram. Exam performed in department. Left Ventricle Normal size and thickness. The left ventricular ejection fraction is 65 %. Normal diastology for age. Right Ventricle Normal right ventricle. Atria The left and right atria are normal. Mitral Valve Trivial mitral valve insufficiency. Tricuspid Valve Trivial tricuspid valve insufficiency. Right ventricular systolic pressure estimated to be 35 mmHg. Aortic Valve Normal aortic valve. Pulmonic Valve The pulmonic valve is not well visualized. Great Vessels Normal sized aortic root. Pericardium/Pleural No pericardial effusion. MMode/2D Measurements & Calculations LVIDd: 5.0 cm IVSd: 0.62 cm LVOT diam: 1.9 cm LVIDs: 3.2 cm LVPWd: 0.60 cm LVOT area: 2.7 cm2 RVDd: 2.9 cm FS: 36.0 % Ao root diam: 2.8 cm LAV(MOD-bp): 35.9 ml LVAd ap4: 25.6 cm2 LAV(MOD-bp) Indexed: 19.7 ml/m2 LVLd ap4: 7.8 cm LAV(MOD-sp2): 40.2 ml EDV(MOD-sp4): 69.0 ml LAV(MOD-sp4): 31.4 ml EDV(sp4-el): 71.7 ml LVAs ap4: 13.9 cm2 LVLs ap4: 6.4 cm ESV(MOD-sp4): 25.0 ml ESV(sp4-el): 25.7 ml EF(MOD-sp4): 63.7 % EF(sp4-el): 64.1 % LVAd ap2: 27.2 cm2 SV(MOD-sp4): 44.0 ml SV(MOD-sp2): 48.4 ml LVLd ap2: 8.4 cm EDV(MOD-sp2): 73.1 ml EDV(sp2-el): 75.3 ml LVAs ap2: 14.3 cm2 LVLs ap2: 7.1 cm ESV(MOD-sp2): 24.6 ml ESV(sp2-el): 24.6 ml EF(MOD-sp2): 66.3 % SV(sp4-el): 46.0 ml LA dimension(2D): 3.5 cm LA A4 area: 15.0 cm2 RA A4 area: 16.8 cm2 TAPSE: 2.2 cm Time Measurements MV dec time: 0.17 sec Doppler Measurements & Calculations MV E max beto: 85.3 cm/sec Lat Peak E' Beto: 13.5 cm/sec Med Peak E' Beto: 8.9 cm/sec MV A max beto: 77.0 cm/sec E/E' lat: 6.3 E/E' med: 9.6 MV E/A: 1.1 Ao V2 max: 134.3 cm/sec LV V1 max: 135.6 cm/sec MV dec slope: 490.3 cm/sec2 Ao max P.2 mmHg LV V1 max P.4 mmHg Ao V2 mean: 96.3 cm/sec LV V1 mean P.8 mmHg Ao mean P.2 mmHg LV V1 mean: 91.1 cm/sec Ao V2 VTI: 31.5 cm LV V1 VTI: 28.8 cm AV (velocity ratio): 0.91 CECILIA(I,D): 2.5 cm2 CECILIA(V,D): 2.8 cm2 SV(LVOT): 79.1 ml PA V2 max: 88.4 cm/sec TR max beto: 241.8 cm/sec PA max PG (full): 1.0 mmHg TR max P.4 mmHg ECHO/Echo Complete Interpretation Summary The left ventricular ejection fraction is 65 %. Right ventricular systolic pressure estimated to be 35 mmHg. Ordering Physician: Meghana Galindo Referring Physician: Meghana Galindo Performed By: Chloé Romeo RDCS
== END | disposition home or self-care (01) ==
LOC: CVS 09:38
PROVIDERS: PCP Internal Medicine; Referring Provider Internal Medicine; Visit Provider Internal Medicine
DX: R06.02 Shortness of breath (principal)
CPT/HCPCS: 93306

== ENCOUNTER → 2023-07-23 | Outpatient (CLI) | payer BC, MEDICAID, SELFPAY ==
--- NOTE | 2023-07-24 09:39 | PFT ---
INTRODUCTION: The patient is a 43-year-old male who presents for pulmonary function studies secondary to a diagnosis of shortness of breath. Respiratory therapy reported good patient effort. Bronchodilators were used during testing. INTERPRETATION: Forced expiration spirometry demonstrates the presence of a moderately severe large airways obstructive ventilatory defect. There was no significant response to aerosolized bronchodilators. Spirograms are of good quality and plateau gradually. Body plethysmography was performed and revealed a decreased TLC to 5.46 L, 79% of predicted, indicative of a mild restrictive ventilatory impairment. Diffusing capacity by single breath CO is reduced to 49% of predicted. IMPRESSION: Irreversible moderately severe mixed ventilatory defect with symmetric reduction in diffusing capacity.
== END | disposition home or self-care (01) ==
LOC: PSN 08:59
PROVIDERS: PCP Internal Medicine; Referring Provider Internal Medicine; Visit Provider Internal Medicine
DX: R06.02 Shortness of breath (principal)
CPT/HCPCS: 94060; 94726; 94729

== ENCOUNTER → 2023-08-13 | Outpatient (CLI) | payer BC, MEDICAID, SELFPAY ==
--- NOTE | 2023-08-13 18:55 | CT_ITS ---
EXAM: CT ABDOMEN AND PELVIS WITH INTRAVENOUS CONTRAST CLINICAL INDICATION: abdominal pain -- STAT TECHNIQUE: Helically acquired images were obtained of the abdomen and pelvis with intravenous contrast. This CT exam was performed using one or more of the following dose reduction techniques: automated exposure control, adjustment of the mA and/or kV according to patient size, and/or use of iterative reconstruction technique. CONTRAST: Oral and amp; IV Readi-CAT and amp; 100mL Isovue-300 COMPARISON: 03/03/2023 FINDINGS: LOWER THORAX: Unremarkable. Lung bases are clear. No cardiomegaly. No significant pericardial effusion. ABDOMEN: LIVER: Unremarkable. Homogeneous. No focal mass. GALLBLADDER AND BILE DUCTS: Unremarkable. No calcified gallstones. No gallbladder distention or wall edema. No intra- or extrahepatic biliary ductal dilation. PANCREAS: Unremarkable. No focal cystic or solid mass. SPLEEN: Unremarkable. Normal size without focal cystic or solid mass. ADRENALS: Unremarkable. No nodules. KIDNEYS AND URETERS: Unremarkable. Normal renal size and position. No hydronephrosis. STOMACH AND BOWEL: Unremarkable. No stomach or bowel distention. No focal inflammatory change. PELVIS: APPENDIX: No evidence of acute appendicitis. BLADDER: There is mild thickening of the wall the urinary bladder. REPRODUCTIVE: Unremarkable as visualized. No mass. ABDOMEN and PELVIS: INTRAPERITONEAL SPACE: Unremarkable. No ascites or other fluid collection. No free air. BONES/JOINTS: Unremarkable. No suspicious lytic or blastic abnormality. SOFT TISSUES: Unremarkable. No discrete abdominal or pelvic wall hernia. VASCULATURE: Unremarkable. Abdominal aorta is non-dilated. LYMPH NODES: Unremarkable. No enlarged lymph nodes. CT/Abdomen/Pelvis WITH Contrast IMPRESSION: Thickened wall the urinary bladder which may be due to incomplete distention or perhaps cystitis. No other acute abnormalities identified. Electronically Signed: Bunny Munoz MD at 23:47 EDT ,
== END | disposition home or self-care (01) ==
LOC: CT 18:53
PROVIDERS: PCP Internal Medicine; Referring Provider Internal Medicine Gastroenterology; Visit Provider Internal Medicine Gastroenterology
DX: R10.9 Unspecified abdominal pain (principal)
CPT/HCPCS: 74177; Q9967

== ENCOUNTER → 2023-08-18 | Outpatient (CLI) | payer BC, MEDICAID, SELFPAY ==
--- NOTE | 2023-08-18 07:02 | CT_ITS ---
STUDY: CT CHEST WITHOUT CONTRAST REASON FOR EXAM: Male, 43 years old. HIGH RESOLUTION ONLY SOB. Patient smoked 1-2 packs per day for 30 years. History of Sjogren''s and Crohn''s disease. RADIATION DOSAGE (If Supplied By Facility): CTDIvol = ( 6.27 ) mGy, DLP = ( 241.67 ) mGycm TECHNIQUE: Transaxial imaging was performed without the administration of intravenous contrast material. Multiplanar coronal and sagittal images were reformatted. Individualized dose optimization techniques were used for this CT. COMPARISON: No relevant priors. FINDINGS: CHEST Small benign-appearing bilateral axillary lymph nodes. Emphysematous changes are seen in the upper lobes worse on the right side. There is evidence of scarring at the lung apices more prominent on the right side. Mild increased linear markings in the posterior aspect of the lingular segment of the left upper lobe suggestive of scarring. There is no demonstrated pleural abnormality. Normal heart and pericardium. There are multiple small lymph nodes within the mediastinum, which are normal in size and morphology most compatible with reactive lymph hyperplasia. Normal hilar regions. Normal unenhanced pulmonary arteries. Normal aorta arch and descending thoracic aorta. There is demineralization of the thoracic spine. There is no demonstrated abnormality of the visualized upper abdomen. CT/Chest without Contrast IMPRESSION: Emphysematous changes in the upper lobes more prominent in the right upper lobe. Linear scarring at the left lung base. Electronically Signed: Fabrizio Chin MD at 9:42 EDT ,
== END | disposition home or self-care (01) ==
LOC: CT 07:01
PROVIDERS: PCP Internal Medicine
DX: R06.02 Shortness of breath (principal); M35.00 Sjogren syndrome, unspecified; Z87.891 Personal history of nicotine dependence
CPT/HCPCS: 71250

== ENCOUNTER → 2023-08-28 | Outpatient (CLI) | payer BC, MEDICAID, SELFPAY ==
--- NOTE | 2023-08-28 13:56 | ST.MBS ---
Modified Barium Swallow Patient Information Study Date: 08/28/23 Study Time: 13:00 Direct Billable Minutes: 115 Total Minutes procedure & reportin Diagnosis: Sjogren's (M35.00), Dysphagia (R13.10) Referring Physician: Hyacinth Aviles DO Reason for Referral: Objectively assess swallow function, assess risk for aspiration, and determine recommendations for least restrictive diet textures and compensatory strategies to improve safety of swallow. Medical History: PMH: Sjogren's, Dysphagia, Alcohol abuse, Anxiety, Arthritis, Back problem, Bipolar disorder, Celiac disease, Crohn's, Depression, Difficulty chewing, Difficulty swallowing, Drug abuse, Enlarged heart, GERD w/ esophagitis, Hearing problem, Hepatitis, Hiatal hernia, History of irregular heartbeat, Hoarseness, Injury of head and neck, Migraines, Seizure, Smoker, Ulcers (SEE EMR for full PMH). The patient is a 43-year-old male with PMH above who has been referred for MBSS due to difficulty swallowing liquids. Per patient, he experiences tightening of his throat 4-6X/month when drinking or eating. When this tightening occurs, he feels that his throat locks up, he can get some of the food/drink out but most of the food/drink stays stuck, he cannot cough, and he cannot breathe. He is fearful of being home alone when these episodes occur. Rarely, he will cough with liquids and feel as if they go down the wrong way. He has been experiencing fluctuation in his weight. These issues have occurred for the past 5 year, but they have worsened in the past year. He did inform the EQUIPMENT MAINTENANCE TECHNICIAN that he slit his own throat in 2012, but he denied having swallowing difficulty after this act of self-harm. Current Diet Ordered: Regular textures / Thin liquids Dentition: WNL Mental Status: WNL Respiratory Status: Oxygenating on Room Air Penetration-Aspiration Scale Penetration-Aspiration Scale: OBJECTIVE ASSESSMENT OF SWALLOW FUNCTION (QUANTITATIVE ? PER TRIAL): PENETRATION / ASPIRATION SCALE (WHEELER): 1 = does not enter airway 2 = enters airway/above vocal folds/ejected 3 = enters airway/above vocal folds/not ejected 4 = enters airway/contacts vocal folds/ejected 5 = enters airway/contacts vocal folds/not ejected 6 = enters airway/below vocal folds/ejected 7 = enters airway/below vocal folds/not ejected despite effort 8 = enters airway/below vocal folds/no effort VIDEOFLOROSCOPIC SCALE SCORE (WHEELER): Grade I = aspiration of material that has penetrated into the laryngeal vestibule, intact cough reflex Grade II = aspiration < 10 % of the bolus, intact cough reflex Grade III = aspiration of < 10 % of the bolus, reduced cough reflex or aspiration of > 10 % of the bolus, intact cough reflex Grade IV = aspiration of > 10 % of the bolus, reduced cough reflex Penetration-Aspiration Scale Score Thin Liquid via teaspoon: Result: 1= does not enter airway Thin Liquid via teaspoon Trial 2: Result: 1= does not enter airway Thin liquids by small single cup sip with esophageal screen: Result: 1= does not enter airway Archer/mildly thick by small single cup sip: Result: 1= does not enter airway Pudding via teaspoon with esophageal screen: Result: 1= does not enter airway Comment: Esophageal retention of pudding throughout the mid and lower esophagus. Thin liquids by sequential straw sips with esophageal screen: Result: 1= does not enter airway Comment: Thin liquid wash effectively cleared majority of esophageal retention with only minimal retention in the lower esophagus. Potato chip with barium pudding coating: Result: 1= does not enter airway Thin liquids by sequential cup sips with esophageal screen: Result: 1= does not enter airway Comment: Esophageal retention throughout mid and lower esophagus with retrograde flow remaining below the upper esophageal sphincter. Oral Phase Labial Seal: No Labial Escape Tongue Control During Bolus Hold: Posterior escape of less than half of bolus (large/sequential sips of thin liquids) Bolus Preparation/Mastication: Timely and efficient chewing and mashing Bolus Transport/Lingual Motion: Brisk tongue motion Oral Residue: Trace residue lining oral structures Pharyngeal Phase Initiation of Pharyngeal Swallow: Bolus head at posterior laryngeal surgace of epiglottis Soft Palate Elevation: No bolus between soft palate and pharyngeal wall Laryngeal Elevation: Comp. Superior move thyroid cart w/comp. apprx arytenoid cart-epig pet Anterior Hyoid Excursion: Partial anterior movement Epiglottic Movement: Complete inversion Laryngeal Vestibule Closure at Height of Swallow: Complete; no air/contrast in laryngeal vestibule Pharyngeal Stripping Wave: Present - complete Pharyngoesophageal Segment Opening: Complete distension and complete duration; no obstruction of flow Tongue Base Retraction: Narrow column of contrast between tongue base & post. pharyngeal wall Pharyngeal Residue: Collection of residue within or on pharyngeal structures (large sequential sips of thin liquids, which cleared after second swallow) Esophageal Phase Esophageal Clearance: Esophageal retention w/ retrograde flow below pharyngoesophageal seg. Diagnosis/Impression Diagnosis: Oropharyngeal swallow function grossly WNL; Esophageal dysphagia (R13.14) Impression: Oropharyngeal swallow function is grossly WNL. He demonstrated good airway closure during the swallow despite decreased anterior hyoid excursion and presented with no laryngeal penetration or aspiration throughout the study. Mild pharyngeal residue with large sequential sips, which fully cleared with independent initiation of a second swallow. The esophageal phase is primarily marked by? -Esophageal retention of pudding throughout the mid and lower esophagus. Thin liquid wash effectively cleared majority of esophageal retention with only minimal retention in the lower esophagus. -Esophageal retention of thin liquid wash via straw following barium coated potato chip throughout mid and lower esophagus with retrograde flow remaining below the upper esophageal sphincter; however, very little emptying through the lower esophageal sphincter observed. EQUIPMENT MAINTENANCE TECHNICIAN did request the metallurgical engineering technician re-check esophagus ~1 min later and majority of retention had cleared. Recommendations Diet: Regular Textures (GI Soft diet textures to promote improved esophageal motility) and Thin Liquids Compensatory Strategies: Small Bites, Small Sips, Slow Rate, Alternate bites/solids and sips/liquids (1:1 ratio), Sitting upright and Remain sitting upright for 30 minutes after PO intake Recommend Repeat Modified Barium Swallow: No Need for Skilled Speech Therapy Services: No Recommended Referrals: GI Consult (Follow up with Dr. Godwin re: esophageal retention and slowed esophageal emptying during the study.) Education Completed: 1. Described result of evaluation. (EQUIPMENT MAINTENANCE TECHNICIAN encouraged follow-up with PCP and Dr. Godwin regarding further education re: results/recommendations of MBSS.) Status Active ST Patient: Active Contact Information [facility] Speech Therapy:: Carmelita Seals M.A. [facility]-EQUIPMENT MAINTENANCE TECHNICIAN Speech-Language Pathologist [facility] [address] [place] [address] [phone]
== END | disposition home or self-care (01) ==
LOC: RAD 13:05
PROVIDERS: PCP Internal Medicine
DX: M35.00 Sjogren syndrome, unspecified (principal); R13.10 Dysphagia, unspecified
CPT/HCPCS: 74230; 92611

== ENCOUNTER 2023-09-29 08:01 | Day surgery (SDC) | payer BC, MEDICAID, SELFPAY ==
[2023-09-29 08:38] VITALS: BP 107/74; PULSE 70; RESP 18; TEMP 36.7; O2SAT 95; BMI 20.7
[2023-09-29] MEDS: Lactated Ringers 1,000 ML 15 ML IV (08:42)
--- NOTE | 2023-09-29 10:00 | VOCOB_PTH ---
PATIENT: DEMI MCNAMARA LOC: [facility] [place] U#:[id number] AGE/SX: 43/M ROOM: RE09/29/[address]: Dr. Bryce Muro MD : 1980 BED: DIS: 09/29/2023 SPEC #: [id number] RECD: 09/29/23 11:11 STATUS: KWESI REKarl #: [id number] KENYATTA: 09/29/23 10:[address]: Bryce Muro DEPT: SURGICAL PATHOLOGY RECD BY: Yisel Munoz ENTERED: 09/29/23 12:54 SP TYPE: VOCAL CORD OTHR DR: Dr. 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 AM:blaire 09/30/2023 MICROSCOPIC DESCRIPTION Slides are reviewed. GROSS DESCRIPTION Received in fixative is one container labeled with the patient's name and designated left vocal cord mass. The specimen consists of a polypoid fragment of pink-cotton soft tissue measuring 1.3 x 0.5 x 0.4 cm. The specimen is bisected and totally submitted in one cassette. / AM:blaire 09/29/2023 TC:1 CPT: 63396
--- NOTE | 2023-09-29 10:06 | DCINST_ITS ---
Discharge Instructions Diet Discharge Diet: No restrictions Activity Discharge Activity: Return to Normal Activity Dressing / Incision Call your doctor if your incision/area has: Increased Pain/ Swelling Follow Up Care Please Follow Up With: Bryce Muro MD When: 3 weeks Test Results: Test results from this visit will be discussed in further detail at your follow- up appointment, if applicable. Discharge Plan Admission Attending Provider: Bryce Muro Primary Care Provider: Meghana Galindo Discharge Orders/Prescriptions Prescriptions: No Action oxcarbazepine 600 mg tablet 900 mg PO BID fluvoxamine 100 mg tablet 100 mg PO QHS propranolol 20 mg tablet 20 mg PO BID buprenorphine-naloxone 8-2 mg tablet, sublingual 2 tab sublingual BID Patient Comments: DISOLVE 2 AND ONE-HALF TABLETS UNDER THE TONGUE DAILY FOR 28 DAYS olanzapine 5 mg tablet 5 mg PO QHS albuterol 90 mcg/actuation aerosol 90 mcg inhalation PRN ondansetron 4 mg tablet,disintegrating 4 mg PO Q8H PRN (Reason: nausea and vomiting) Qty: 30 0RF lubiprostone [Amitiza] 8 mcg capsule 8 mcg PO QHS budesonide 3 mg capsule,delayed,extend.release 6 mg PO BID Referrals / Follow Up: Meghana Galindo MD [Primary Care Provider] - Disposition Disposition (needs filled in before D/C Order can be placed): Home, Self Care
--- NOTE | 2023-09-29 10:07 | OP.PCM_ITS ---
Problems Associated Problem List Diagnoses (1) Vocal cord mass: Report of Operation Date of Procedure: 09/29/23 Pre-Operative Diagnosis: vocal cord mass, left Post-Operative Diagnosis: vocal cord mass, left Surgery/Procedure Performed:: diagnostic laryngoscopy with use of operating telescope and biopsy Surgeon: Bryce Muro Type of Anesthesia: General Description of Procedure: on the day of the procedure, after appropriate informed consent was obtained, the patient was brought to the operating room and placed in supine position on the operating table. he was placed under general endotracheal anesthesia by the anesthesiologist. the endotracheal tube was secured, the eyes were taped. the table was rotated 90 degrees toward the surgeon. a earle laryngoscope was inserted into the oral cavity with care not to damage the lips, teeth or gums. it was suspended from the hughes. a clear glottic view was seen with a 2cm polyp oid mass emanating from the left anterior vocal cord. this was removed with microlaryngoscopy graspers and scissors. hemostasis was achieved with afrin- soaked codman pledgets. he was extubated uneventfully and transferred to the PACU in stable condition.
[2023-09-29] MEDS: Oxymetazoline 0.05% 1 SPRAY SPRAY.BTL 15 SPRAY (10:34)
[2023-09-29 10:45] VITALS: BP 107/74; BP 124/82; PULSE 69; RESP 18; TEMP 36.5; O2SAT 97
[2023-09-29 10:50] VITALS: BP 107/74; BP 122/81; PULSE 67; RESP 18; O2SAT 93
[2023-09-29 10:55] VITALS: BP 107/74; BP 111/78; PULSE 69; RESP 18; O2SAT 95
[2023-09-29 11:09] VITALS: BP 107/74; BP 114/75; PULSE 59; RESP 18; TEMP 36.7; O2SAT 95
[2023-09-29 11:30] VITALS: BP 107/74
== END 2023-09-29 11:36 | disposition home or self-care (01) ==
LOC: SDC 08:04 → AC 08:04
PROVIDERS: PCP Internal Medicine; Referring Provider Otolaryngology; Visit Provider Otolaryngology
PROC: (CPT 30100; principal; 2023-09-29 09:45)
PROC: 0CJS8ZZ Inspection of Larynx, Via Natural or Artificial Opening Endoscopic (ICD-10-PCS; CPT 31575; 2023-09-29 09:45)
DX: J38.1 Polyp of vocal cord and larynx (principal); F31.9 Bipolar disorder, unspecified; F41.9 Anxiety disorder, unspecified; R13.14 Dysphagia, pharyngoesophageal phase; R49.0 Dysphonia; K21.9 Gastro-esophageal reflux disease without esophagitis; M50.30 Other cervical disc degeneration, unspecified cervical region; G43.909 Migraine, unspecified, not intractable, without status migrainosus; F17.200 Nicotine dependence, unspecified, uncomplicated; Z79.899 Other long term (current) drug therapy
CPT/HCPCS: 31536; 00320; 88305; J7120; J2405

== ENCOUNTER → 2023-12-17 | Outpatient (CLI) | payer BC, MEDICAID, SELFPAY ==
--- NOTE | 2023-12-17 08:58 | RAD_ITS ---
STUDY: X-RAY - ABDOMEN/PELVIS REASON FOR EXAM: Male, 43 years old. Constipation TECHNIQUE: Two AP supine views of the abdomen and pelvis. COMPARISON: None. FINDINGS: Normal visualized lung bases. There is an unremarkable bowel gas pattern. There is no demonstrated free abdominal air. The visualized liver, spleen and kidneys are grossly normal in size and morphology. Normal soft tissue structures. Normal visualized osseous structures. RAD/Abdomen Single View IMPRESSION: No evidence of acute intra-abdominal process. Prominent stool within the rectum is noted. Electronically Signed: Calderon Serrano DO at 16:52 EST ,
== END | disposition home or self-care (01) ==
LOC: RAD 08:54
PROVIDERS: PCP Internal Medicine; Referring Provider Internal Medicine Gastroenterology; Visit Provider Internal Medicine Gastroenterology
DX: K59.01 Slow transit constipation (principal)
CPT/HCPCS: 74018

== ENCOUNTER 2023-12-21 08:45 | Emergency (ER) | payer BC, MEDICAID, SELFPAY ==
[2023-12-21 08:46] VITALS: BP 126/86; PULSE 83; RESP 14; TEMP 36.2; O2SAT 95; BMI 19.1
--- NOTE | 2023-12-21 09:04 | CT_ITS ---
STUDY: CT ABDOMEN AND PELVIS WITH CONTRAST REASON FOR EXAM: Male, 43 years old. Abdominal pain -- IV PO Contrast. History of diverticulitis, Crohn''s disease celiac disease and Sjogren''s disease RADIATION DOSAGE (If Supplied By Facility): CTDIvol = ( 12.13 ) mGy, DLP = ( 403.10 ) mGycm TECHNIQUE: Transaxial images were obtained from the dome of the diaphragm to the symphysis pubis with oral contrast. Oral and amp; IV Gastrografin and amp; 100mL Isovue-300 was administered. Sagittal and coronal images were reconstructed. Individualized dose optimization techniques were used for this CT. COMPARISON: Comparison is made with prior study dated August 13, 2023. FINDINGS: Mild increased markings at the lung bases with areas of confluence. This may represent either atelectasis and/or scarring. The visualized portions of the heart are within normal limits. Normal liver. The gallbladder is mildly dilated. Normal spleen. Normal pancreas. Normal bilateral adrenal glands. Normal right kidney. Normal left kidney. Normal visualized stomach. Normal small intestine. Moderate amount of fecal material is seen throughout the right hemicolon. The appendix is visualized and appears normal. Normal abdominal aorta. Normal inferior vena cava. Normal retroperitoneum. Bladder wall thickening. There is prominence of the seminal vesicles. Normal abdominal wall. Normal osseous structures. CT/Abdomen/Pelvis WITH Contrast IMPRESSION: Mild dilatation of the gallbladder lumen. Questionable sludge along the dependent portion of the gallbladder. Bladder wall thickening. Enlargement of the seminal vesicles bilaterally. Electronically Signed: Fabrizio Chin MD at 11:07 EST ,
--- NOTE | 2023-12-21 09:19 | ED.VIS.GI ---
HPI HPI - GI History of Present Illness Chief Complaint: Abd Pain Narrative Narrative: 43-year-old male who is a patient of Dr. Godwin presenting with abdominal pain which he states is mostly in the left lower quadrant. He states he has a history of duodenitis, Sjogren's, celiac's, Crohn's disease. He states he is not on a biologic medicine. He states he is on something for abdominal migraines but he cannot remember the name of it. He states that he is out of the medication. He states he also takes Zofran on a regular basis which is not helping anymore as much. Patient states that he has called Dr. Godwin's office but is not been able to get a follow-up appointment. He states that over the last month his pain has been worse on the left side in the left lower quadrant. He states that yesterday he had about an hour of straight cramping and nausea became sweaty but this is resolved. He still says it is 7/10 of pain which is constant and every day. No fever at home. No constipation or diarrhea. No black or bloody stools. [facility] Medical History Abdominal pain Alcohol abuse Alcohol use Anxiety Arthritis Back problem Bipolar disorder Celiac disease COPD (chronic obstructive pulmonary disease) Depression Dietary restriction Difficulty swallowing Drug abuse Enlarged heart Enlarged heart GERD (gastroesophageal reflux disease) Hearing problem Hepatitis History of blood transfusion History of Crohn's disease History of diverticulitis History of echocardiogram History of edema Hoarseness Infective endocarditis Injury of back Injury of head and neck Loss of hearing Marijuana use Migraine headache Migraines Positive GETACHEW (antinuclear antibody) Seizure Smoker Substance abuse Ulcer Wears glasses Home Medications fluvoxamine 100 mg tablet 100 mg PO QHS 08/06/18 [History Last Taken Unknown] oxcarbazepine 600 mg tablet 900 mg PO BID 08/06/18 [History Last Taken Unknown] propranolol 20 mg tablet 20 mg PO BID 08/06/18 [History Last Taken Unknown] buprenorphine 8 mg-naloxone 2 mg sublingual tablet 2 tab sublingual BID 06/17/23 [History Last Taken 09/29/23 00:30] olanzapine 5 mg tablet 5 mg PO QHS 06/17/23 [History Last Taken Unknown] albuterol 90 mcg/actuation aerosol inhaler 90 mcg inhalation PRN SHORTNESS OF BREATH 09/01/23 [History Last Taken Unknown] ondansetron 4 mg disintegrating tablet 4 mg PO Q8H PRN nausea and vomiting #30 tabs 09/01/23 [Rx Last Taken Unknown] lubiprostone 8 mcg capsule (Amitiza) 8 mcg PO QHS 09/22/23 [History Last Taken Unknown] budesonide 3 mg capsule,delayed,extended release 6 mg PO BID 09/29/23 [History Last Taken 09/29/23 07:00] tiotropium 2.5 mcg-olodaterol 2.5 mcg/actuation mist for inhalation (Stiolto Respimat) 2 inh inhalation DAILY #4 grams 10/16/23 [Rx Last Taken Unknown] alprazolam 0.5 mg tablet (Xanax) 0.5 mg PO BID PRN abdominal pain #12 tabs 12/21/23 [Rx Last Taken Unknown] metoclopramide HCl 10 mg tablet (Reglan) 10 mg PO Q6H PRN nausea and vomiting #14 tabs 12/21/23 [Rx Last Taken Unknown] Allergy/AdvReac Type Severity Reaction Status Date / Time Penicillins Allergy Unknown Rash Verified 12/21/23 08:47 Family History Uncle Diabetes Aunt Diabetes Father Heart disease Alcohol abuse Enlarged heart Son Benign brain tumor Seizures Grandmother Seizures Other Anxiety Surgical History History of esophagogastroduodenoscopy (EGD) History of facial surgery Hx of colonoscopy Hx of hernia repair Hx of neck surgery Social History household members: friend(s) current occupational status: employed current occupation: [employer], on FMLA currently due to abdominal problems Smoking Status: Current every day smoker tobacco type: cigarettes Electronic Cigarette Use: not used quit status: considering quitting alcohol intake: former year quit: 2010 substance use type: former substance user Date of last use: heroin - 2018, marijuana and sedatives caffeine: Yes what type of physical activity do you participate in: walking and weight training frequency: 1-2 times per week seatbelt use: always do you feel safe at home: Yes ROS ROS ED Constitutional Constitutional ED: Denies chills, fever(s) or sweats Eyes Eyes: Denies blurry vision or change in vision ENT ENT ED: Denies ear pain or sore throat Cardiovascular Cardiovascular: Denies chest pain, palpitations or racing heartbeat Respiratory/Chest Respiratory/Chest: Denies cough, dyspnea or sputum Gastrointestinal Gastrointestinal: Reports abdominal pain, nausea and vomiting; Denies constipation or diarrhea Genitourinary Genitourinary ED: Denies dysuria, hematuria or urinary frequency Musculoskeletal Musculoskeletal: Denies arthralgias, myalgias or neck pain Integumentary Denies abscess, Abrasions or rash Neurologic Neurologic: Denies headache(s), paresthesias or weakness Psychiatric Psychiatric: Denies anxiety, depression, suicidal ideation or suicidal thoughts Endocrine Endocrinology: Denies polydipsia or polyuria EXAM Physical Exam Const Vital Signs: 12/21/23 08:46 12/21/23 11:33 12/21/23 11:33 Temperature 97.2 F L Temperature Source Temporal Pulse Rate 83 68 68 Respiratory Rate 14 12 12 Blood Pressure 126/86 H Blood Pressure Mean 99 Pulse Ox 95 99 Oxygen Delivery Method Room Air Positive well nourished General Appearance ED: NAD; Negative for pallor HEENT Reports moist mucous membranes normocephalic and atraumatic Eyes PERRL Resp normal respiratory effort Cardio regular rate and regular rhythm GI Palpation: tender LLQ, LUQ and periumbilical Neuro CN's II-XII intact bilaterally Sensorium / Orientation: alert Motor Exam: strength 5/5 throughout Psych mental status grossly normal Skin General Skin Exam: Negative for jaundice or pallor MDM MDM MDM Narrative Medical decision making narrative: 43-year-old male presenting with a month of abdominal pain in the left lower quadrant and suprapubic area. Denies constipation or diarrhea. Patient states he has Crohn's disease, Sjogren's, celiac's. He is a patient Dr. Friend. Differential includes Crohn's flare, colitis, diverticulitis, UTI, pyelonephritis, dehydration, anemia, electrolyte abnormalities, pancreatitis, gastritis. CBC was obtained to assess white blood cell count, hemoglobin, platelets. BMP to assess renal function, electrolytes, glucose. LFTs to assess liver function. Urinalysis to assess for UTI. Lipase to assess for pancreatitis. Patient declines analgesia but states he will take something for nausea so was given Reglan and a liter of normal saline. CT of the abdomen pelvis with oral IV contrast to be obtained. CBC, CMP, lipase all within normal limits. The allergies listed on patient had a CT of the abdomen with oral IV contrast which does not reveal the source of the patient's pain. there is an adrenal nodule. There is some slight dilatation to the gallbladder with gallbladder thickening however the patient is not tender in the right upper quadrant. LFTs normal. I spoke with Dr. Godwin regarding the patient he recommended given some Ativan in the ER and Xanax 0.5 mg every 8 hours as needed at home. This was discussed with the patient. He is to follow-up with Dr. Godwin and make an appointment. Return precautions discussed. Impression 1. Abdominal pain 2. Nausea/vomiting Lab Data Attestation: I reviewed the patient's lab results. Labs: Laboratory Results - last 24 hr 12/21/23 09:10 WBC 6.6 RBC 5.74 Hgb 15.6 Hct 47.4 MCV 82.6 MCH 27.2 MCHC 32.9 RDW Std Deviation 37.6 RDW Coeff of Uzma 12.5 Plt Count 198 MPV 10.7 Immature Gran % (Auto) 0.300 Neut % (Auto) 68.4 Lymph % (Auto) 19.0 Kendall % (Auto) 8.2 Eos % (Auto) 3.2 Baso % (Auto) 0.9 Absolute Neuts (auto) 4.5 Absolute Lymphs (auto) 1.26 Nucleated RBC % 0 Differential Comment SCANNED Sodium 138 Potassium 4.3 Chloride 105 Carbon Dioxide 30.0 Anion Gap 3 L BUN 11 Creatinine 0.76 Estim Creat Clear Calc 104.84 Est GFR (MDRD) Af Amer 144 Est GFR (MDRD) Non-Af 119 BUN/Creatinine Ratio 14.5 Glucose 143 H Calcium 8.9 Total Bilirubin 0.30 Direct Bilirubin 0.09 AST 7 L ALT 24 Alkaline Phosphatase 137 H Total Protein 7.1 Albumin 3.7 Globulin 3.4 Lipase 18 Radiography Diagnostic Testing: Clinical Impression(s) from Imaging Studies Abdomen/Pelvis CT 12/21/23 09:04 IMPRESSION: Mild dilatation of the gallbladder lumen. Questionable sludge along the dependent portion of the gallbladder. Bladder wall thickening. Enlargement of the seminal vesicles bilaterally. Electronically Signed: Fabrizio Chin MD at 11:07 EST , Discharge Plan Triage Chief Complaint: Abd Pain ED Provider: Evaristo Pacheco Dx/Rx/DC Orders Instructions: ED Abdominal Pain Unkn Cause Male... Prescriptions: New alprazolam [Xanax] 0.5 mg tablet 0.5 mg PO BID PRN (Reason: abdominal pain) Qty: 12 0RF metoclopramide HCl [Reglan] 10 mg tablet 10 mg PO Q6H PRN (Reason: nausea and vomiting) Qty: 14 0RF No Action oxcarbazepine 600 mg tablet 900 mg PO BID fluvoxamine 100 mg tablet 100 mg PO QHS propranolol 20 mg tablet 20 mg PO BID buprenorphine-naloxone 8-2 mg tablet, sublingual 2 tab sublingual BID Patient Comments: DISOLVE 2 AND ONE-HALF TABLETS UNDER THE TONGUE DAILY FOR 28 DAYS olanzapine 5 mg tablet 5 mg PO QHS albuterol 90 mcg/actuation aerosol 90 mcg inhalation PRN ondansetron 4 mg tablet,disintegrating 4 mg PO Q8H PRN (Reason: nausea and vomiting) Qty: 30 0RF lubiprostone [Amitiza] 8 mcg capsule 8 mcg PO QHS budesonide 3 mg capsule,delayed,extend.release 6 mg PO BID Stiolto Respimat 2.5-2.5 mcg/actuation mist 2 inh inhalation DAILY Qty: 4 2RF Primary Care Provider: Meghana Galindo Referrals: Meghana Galindo MD [Primary Care Provider] - Disposition Disposition: Home, Self Care Discharge Date/Time: 12/21/23 11:35
[2023-12-21] MEDS: 0.9% Normal Saline (1000mL) 1,000 ML 1000 ML IV (09:20)
[2023-12-21 09:22] LABS: Absolute Lymphocyte Count 1.26 X10^3/uL (0.83-4.51); Absolute Neutrophil Count 4.5 X10^3/uL (2.0-7.7); Basophil# 0.06 X10^3/uL; Basophil% 0.9 % (0-1); Eosinophil# 0.21 X10^3/uL; Eosinophils% 3.2 % (0-5); Hematocrit 47.4 % (40-54); Hemoglobin 15.6 g/dL (13.0-16.5); Lymphocyte # 1.26 X10^3/ul (0.83-4.51); Mean Corp Hgb Conc 32.9 g/dL (32-36); Mean Corpuscular Hgb 27.2 pg (27.0-32.0); Mean Corpuscular Volume 82.6 fL (80-94); Mean Platelet Vol. 10.7 fl (6.2-12.0); Monocyte# 0.54 X10^3/uL; Monocyte% 8.2 % (0-10); NRBC Flagged by Analyzer 0 % (0-5); Neutrophil # 4.53 X10^3/uL (2.7-7.7); Neutrophil % 68.4 % (47-70); POSITIVE MORPHOLOGY YES; Platelet Count 198 K/mm3 (150-450); RBC Distribution Width CV 12.5 % (11.6-14.6); RBC Distribution Width SD 37.6 fl (35.1-43.9); Red Blood Count 5.74 M/mm3 (4.6-6.2); White Blood Count 6.6 K/mm3 (4.4-11.0)
[2023-12-21 09:25] LABS: Differential Indicated SCAN CRITERIA MET
[2023-12-21] MEDS: Metoclopramide 10 MG/2 ML Vial IV (09:35)
[2023-12-21 09:39] LABS: AST(SGOT) 7 U/L (15-37); Alanine Aminotransfer ALT/SGPT 24 U/L (16-61); Albumin, Serum 3.7 g/dL (3.2-5.0); Alkaline Phosphatase 137 U/L (45-117); Anion Gap 3 (5-15); BUN 11 mg/dL (7-18); BUN/Creat Ratio 14.5 RATIO (10-20); Bilirubin, Direct 0.09 mg/dL (0.00-0.30); Calcium,Total 8.9 mg/dL (8.5-10.1); Chloride 105 mmol/L (98-107); Creatinine, Serum 0.76 mg/dL (0.70-1.30); EST Glomerular Filtration Rate 119 mL/min (>60); Est Glom Filt Rate - Afr Amer 144 mL/min (>60); Estimated Creatinine Clearance 104.84 ml/min; Globulin 3.4 g/dL (2.2-4.2); Glucose 143 mg/dL (74-106); Lipase 18 U/L (13-75); Potassium 4.3 mmol/L (3.5-5.1); Protein, Total 7.1 g/dL (6.4-8.2); Sodium Level 138 mmol/L (136-145)
[2023-12-21 09:48] LABS: Differential Comment SCANNED
--- OUTSIDE RECORDS SUMMARY | 2023-12-21 10:00 | XMS RPT_ITS | CCD ---
Author Name Unknown Address [id number] [place] [address] Organization [facility] Care Team Providers Care Animal Skinner Name Role Phone LosJohnEvaristo Unavailable Unavailable PROVIDER, UNKNOWN Unavailable Unavailable No, PCP Unavailable Unavailable SignsОльга Unavailable Nunez JACKIE, Lou K Primary Care Provider TRENT MCCAIN Attending Unavailable TRENT MCCAIN Referring Unavailable Signs Ольга TINOCO Unavailable [phone] Nunez JACKIE, Lou Cohen Primary Care Provider LOU NUNEZ Primary Care Unavailable ANA POWELL Referring Unavailable NUNEZCASEI Noel Primary Care Unavailable LOU HAMMER Referring Unavailable CASE NUNEZI K Primary Care Unavailable CASE NUNEZI K Primary Care Unavailable Unavailable Primary Care Provider UnavailYnes Kuhn MD Primary Care Provider [phone] Ynes Ovalles MD Primary Care Provider Josselyn Galindo MD Primary Care Provider YNES OVALLES Primary Care Unavailable FALLS, POLLY SORENSON Attending UnavailYNES Kuhn Referring Unavailable YNES OVALLES Primary Care Unavailable FALLS, POLLY SORENSON Attending UnavailJOSSELYN Andrade Primary Care Unavailable FALLS, POLLY SORENSON Attending UnavailYNES Kuhn Primary Care Unavailable FALLS, POLLY SORENSON Attending UnavailJOSSELYN Andrade Primary Care Unavailable FALLS, POLLY SORENSON Attending UnavailYNES Kuhn Primary Care Unavailable FALLS, POLLY SORENSON Referring Unavailabl e YNES OVALLES Primary Care Unavailable FALLS, POLLY SORENSON Referring Unavailabl e FALLS, POLLY SORENSON Attending Unavailabl e FALLS, POLLY SORENSON Referring Unavailabl e YNES OVALLES Primary Care Unavailable FALLS, POLLY SORENSON Attending Unavailabl e FALLS, POLLY SORENSON Referring Unavailabl e FALLS, POLLY SORENSON Admitting Unavailabl e YNES OVALLES Primary Care Unavailable YNES OVALLES Primary Care Unavailable Allergies Allergy Classification Reported Allergen(s) Allergy Type Date of Onset Reaction(s) Facility (5 sources) Penicillins; Translations: [PENICILLINS] Drug Intolerance 5 Intolerance [facility] (7 sources) Penicillins Drug Intolerance 5 Intolerance, Unknown, Rash [facility] Medications Current Medications Medication Drug Class(es) Dates Sig (Normalized) Sig (Original) budesonide 3 mg delayed release oral capsule (5 sources) Corticosteroid Start: 06-19-2023 take 2 capsules by mouth once daily budesonide (ENTOCORT EC) 3 mg 24 hr capsule Take 2 (two) capsules (6 mg total) by mouth daily . 0 06/19/2023 Active buprenorphine 8 mg / naloxone 2 mg sublingual tablet (5 sources) Partial Opioid Agonist, Opioid Antagonist Start: 07-08-2023 buprenorphine-nal OXone (SUBOXONE) 8-[address] 2 and 1/2 tablets under the tongue and ALLOW to dissolve once daily 0 07/08/2023 Active dicyclomine hydrochloride 20 mg oral tablet (5 sources) Anticholinergic Start: 05-21-2023 take 1 tablet by mouth twice daily dicyclomine (BENTYL) 20 mg tablet Take 1 (one) tablet (20 mg total) by mouth 2 (two) times a day . 0 05/21/2023 Active doxycycline hyclate 100 mg oral capsule (5 sources) Tetracycline-class Drug End: 12-17-2023 take 1 capsule by mouth twice daily doxycycline hyclate (VIBRAMYCIN) 100 MG capsule Take 1 (one) capsule (100 mg total) by mouth 2 (two) times a day . 0 12/17/2023 Discontinued fluvoxaMINE maleate 100 mg oral tablet (9 sources) Serotonin Reuptake Inhibitor Start: 04-19-2018 fluvoxaMINE (LUVOX) 100 MG tablet Take 1 (one) tablet (100 mg total) by mouth . 0 04/19/2018 Active Completed/Discontinued Medications Medication Drug Class(es) Dates Sig (Normalized) Sig (Original) acetaminophen 500 mg oral tablet (4 sources) Start: 06-10-2018 take 1 tablet by mouth every eight hours as needed for pain acetaminophen (TYLENOL EXTRA STRENGTH) 500 mg tablet Indications: Viral URI with cough Take 1 tablet by mouth every 8 hours as needed for Pain. 30 tablet 0 06/10/2018 Active Problems Active Problems Problem Classification Problem Date Documented Da te Episodic/Chronic Gastroduodenal ulcer (except hemorrhage) (4 sources) H/O: peptic ulcer; Translations: [Personal history of peptic ulcer disease] 06-10-2018 Episodic Immunizations and screening for infectious disease (1 source) Patient encounter status; Translations: [Encounter for screening for other viral diseases] 09-13-2023 Episodic Other gastrointestinal disorders (5 sources) Celiac disease; Translations: [Celiac disease] Onset: 09-13-2023 09-13-2023 Chronic Other gastrointestinal disorders (1 source) Celiac disease; Translations: [Celiac disease] Onset: 09-13-2023 Chronic Other gastrointestinal disorders (3 sources) Dysphagia; Translations: [Dysphagia, unspecified] 07-30-2023 Episodic Other non-traumatic joint disorders (6 sources) Multiple joint pain; Translations: [Pain in unspecified joint] Onset: 09-13-2023 07-30-2023 Episodic Other screening for suspected conditions (not mental disorders or infectious disease) (1 source) CT of chest abnormal; Translations: [Abnormal findings on diagnostic imaging of other specified body structures] 09-13-2023 Chronic Regional enteritis and ulcerative colitis (15 sources) Crohn's disease; Translations: [Crohn's disease, unspecified, with unspecified complications] Onset: 07-30-2023 07-30-2023 Chronic Screening and history of mental health and substance abuse codes (1 source) Tobacco use and exposure - finding; Translations: [Personal history of nicotine dependence] 12-17-2023 Episodic Substance-related disorders (9 sources) Psychoactive substance abuse; Translations: [Sedative, hypnotic or anxiolytic dependence, uncomplicated] Onset: 04-13-2018 08-28-2022 Chronic Systemic lupus erythematosus and connective tissue disorders (13 sources) Sjogren's syndrome; Translations: [Sicca syndrome, unspecified] Onset: 07-30-2023 07-30-2023 Chronic Unclassified (1 source) Sjogren syndrome with dental involvement; Translations: [Sjogren syndrome with dental involvement] Onset: 07-30-2023 Viral infection (2 sources) Viral disease; Translations: [Viral infection, unspecified] Episodic Past or Other Problems Problem Classification Problem Date Documented Da te Episodic/Chronic Other gastrointestinal disorders (2 sources) Dysphagia, unspecified; Translations: [Dysphagia, unspecified] Onset: 07-30-2023 Episodic Other injuries and conditions due to external causes (4 sources) H/O: head injury; Translations: [Personal history of other (healed) physical injury and trauma] Onset: 06-10-2018 06-10-2018 Episodic Other lower respiratory disease (4 sources) Dyspnea; Translations: [Shortness of breath] Onset: 07-30-2023 07-30-2023 Episodic Other lower respiratory disease (2 sources) Shortness of breath; Translations: [Shortness of breath] Onset: 07-30-2023 Episodic Other non-traumatic joint disorders (4 sources) Pain in unspecified joint; Translations: [Pain in unspecified joint] Onset: 07-30-2023 Episodic Residual codes; unclassified (3 sources) Alcoholism; Translations: [Alcohol use disorder] Onset: 04-13-2018 08-28-2022 Episodic Unclassified (1 source) Sjogren syndrome with dental involvement; Translations: [Sjogren syndrome with dental involvement] Onset: 09-11-2023 Results Test Name Value Interpretation Reference Range Facil ity Vital Signs Date Time Vital Sign Value Performing Clinician Faci lity 12-16-2023 09:43-0500 Body mass index (BMI) [Ratio] 19.11 kg/m2 Polly Docin DO Work Phone: [facility] 12-16-2023 09:43-0500 Body weight 58.7 kg Polly Docin DO Work Phone: [facility] 12-16-2023 09:43-0500 Diastolic blood pressure 62 mm[Hg] Polly Docin DO Work Phone: [facility] 12-16-2023 09:43-0500 Heart rate 94 /min Polly Falls DO Work Phone: [facility] 12-16-2023 09:43-0500 Systolic blood pressure 97 mm[Hg] Polly Falls DO Work Phone: [facility] 09-11-2023 10:27-0400 Body mass index (BMI) [Ratio] 21.1 kg/m2 Polly Falls DO Work Phone: [facility] 09-11-2023 10:27-0400 Body weight 64.82 kg Polly Falls DO Work Phone: [facility] 09-11-2023 10:27-0400 Diastolic blood pressure 59 mm[Hg] Polly Falls DO Work Phone: [facility] 09-11-2023 10:27-0400 Heart rate 109 /min Polly Falls DO Work Phone: [facility] 09-11-2023 10:27-0400 Systolic blood pressure 94 mm[Hg] Polly Falls DO Work Phone: [facility] 07-30-2023 08:00-0400 Body height 175.3 cm Polly Falls DO Work Phone: [facility] 07-30-2023 08:00-0400 Body mass index (BMI) [Ratio] 20.38 kg/m2 Polly Falls DO Work Phone: [facility] 07-30-2023 08:00-0400 Body weight 62.6 kg Polly Falls DO Work Phone: [facility] 07-30-2023 08:00-0400 Diastolic blood pressure 78 mm[Hg] Polly Falls DO Work Phone: [facility] 07-30-2023 08:00-0400 Heart rate 67 /min Polly Falls DO Work Phone: [facility] 07-30-2023 08:00-0400 Systolic blood pressure 113 mm[Hg] Polly Falls DO Work Phone: [facility] 11-06-2022 11:43-0500 Body temperature 97.9 [degF] Ana Pendlebury GREETING CARD WRITER.CLEANING AND MAINTENANCE WORKER Work Phone: [facility] 11-06-2022 11:43-0500 Body weight 58.79 kg Ana Pendlebury GREETING CARD WRITER.CLEANING AND MAINTENANCE WORKER Work Phone: [facility] 11-06-2022 11:43-0500 Diastolic blood pressure 64 mm[Hg] Ana Pendlebury GREETING CARD WRITER.CLEANING AND MAINTENANCE WORKER Work Phone: [facility] 11-06-2022 11:43-0500 Heart rate 84 /min Ana Pendlebury GREETING CARD WRITER.CLEANING AND MAINTENANCE WORKER Work Phone: [facility] 11-06-2022 11:43-0500 Respiratory rate 18 /min Ana Pendlebury GREETING CARD WRITER.CLEANING AND MAINTENANCE WORKER Work Phone: [facility] 11-06-2022 11:43-0500 SaO2% (BldA) [Mass fraction] 95 % Ana Pendlebury GREETING CARD WRITER.CLEANING AND MAINTENANCE WORKER Work Phone: [facility] 11-06-2022 11:43-0500 Systolic blood pressure 102 mm[Hg] Ana Pendlebury GREETING CARD WRITER.CLEANING AND MAINTENANCE WORKER Work Phone: [facility] 03-04-2022 11:13-0400 Body temperature 98.6 [degF] Ana Pendlebury GREETING CARD WRITER.CLEANING AND MAINTENANCE WORKER Work Phone: [facility] 03-04-2022 11:13-0400 Body weight 62.87 kg Ana Pendlebury GREETING CARD WRITER.CLEANING AND MAINTENANCE WORKER Work Phone: [facility] 03-04-2022 11:13-0400 Diastolic blood pressure 74 mm[Hg] Ana Pendlebury GREETING CARD WRITER.CLEANING AND MAINTENANCE WORKER Work Phone: [facility] 03-04-2022 11:13-0400 Heart rate 77 /min Ana Pendlebury GREETING CARD WRITER.CLEANING AND MAINTENANCE WORKER Work Phone: [facility] 03-04-2022 11:13-0400 Respiratory rate 18 /min Ana Pendlebury GREETING CARD WRITER.CLEANING AND MAINTENANCE WORKER Work Phone: [facility] 03-04-2022 11:13-0400 Systolic blood pressure 102 mm[Hg] Ana Powell GREETING CARD WRITER.CLEANING AND MAINTENANCE WORKER Work Phone: [facility] Encounters Encounter Date Encounter Type Care Provider Facility Start: 12-16-2023 End: 12-20-2023 ambulatory JOSSELYN GLAINDO [facility] Start: 12-16-2023 End: 12-16-2023 Office outpatient visit 25 minutes Polly Aviles DO Work Phone: [facility] Procedures Date Procedure Procedure Detail Performing Clinician Start: 11-06-2022 COVID WITH FLUA+B, ROUTINE Ana Powell GREETING CARD WRITER.CLEANING AND MAINTENANCE WORKER Work Phone: Plan of Treatment Date Care Activity Detail Author Start: 2031 Zoster Vaccines (1 of 2) Zoster Vaccines (1 of 2) [facility] Start: 05-17-2024 End: 05-17-2024 Patient encounter procedure 05/17/2024 10:15 AM EDT Office Visit [facility] [address] [place] [address] [place] [address] Polly Aviles DO [address] [place] [id number] [facility] Start: 11-26-2023 End: 11-26-2023 Patient encounter procedure 11/26/2023 10:30 AM EST Office Visit [facility] [address] [place] [address] [place] [address] Polly Aviles DO [address] [place] [id number] [facility] Start: 08-13-2023 End: 08-13-2023 Patient encounter procedure 08/13/2023 10:00 AM EDT Office Visit [facility] [address] [place] [address] [place] [phone] Polly Aviles DO [address] [place] [address] [place] [address] [facility] Start: 07-17-2023 Influenza vaccination [facility] Start: 07-17-2022 Influenza vaccination [facility] Start: 11-16-2021 DEPRESSION ASSESSMENT DEPRESSION ASSESSMENT [facility] Start: 2016 LIPID SCREEN LIPID SCREEN [facility] Start: 2000 DTaP/Tdap/Td Vaccines (1 - Tdap) DTaP/Tdap/Td Vaccines (1 - Tdap) [facility] Start: 2000 Hepatitis A Vaccines (1 of 2 - Risk 2-dose series) Hepatitis A Vaccines (1 of 2 - Risk 2-dose series) [facility] Start: 2000 Urine microalbumin profile DTAP,TDAP,TD (1 - Tdap) [facility] Start: 1999 HEPATITIS C SCREENING HEPATITIS C SCREENING [facility] Start: 1999 Hepatitis C screening Hepatitis C Screening [facility] Start: 1999 HIV SCREENING HIV SCREENING [facility] Start: 1996 HIV screening HIV Screening [facility] Start: 1993 Adult depression screening assessment [facility] Start: 1987 PNEUMOCOCCAL (1 - PCV) PNEUMOCOCCAL (1 - PCV) [facility] Start: 1987 Pneumococcal Vaccine: Ped or At-Risk (1 - PCV) Pneumococcal Vaccine: Ped or At-Risk (1 - PCV) [facility] Start: 1987 Pneumococcal Vaccine: Ped or At-Risk (1 of 2 - PCV) Pneumococcal Vaccine: Ped or At-Risk (1 of 2 - PCV) [facility] Start: 1987 Pneumococcal Vaccine: Pediatrics (0 to 5 Years) and At-Risk Patients (6 to 64 Years) (1 - PCV) Pneumococcal Vaccine: Pediatrics (0 to 5 Years) and At-Risk Patients (6 to 64 Years) (1 - PCV) [facility] Start: 1986 COVID-19 Vaccine (#1) COVID-19 Vaccine (#1) [facility] Start: 1986 COVID-19 VACCINE (1) COVID-19 VACCINE (1) [facility] Start: 1984 History and physical examination, annual for health maintenance Wellness Visit [facility] Start: 1982 MMR Vaccines (1 of 1 - Standard series) MMR Vaccines (1 of 1 - Standard series) [facility] Start: 1982 Varicella vaccination Varicella Vaccines (1 of 2 - 2-dose childhood series) [facility] Start: 1981 COVID-19 VACCINE (#1) COVID-19 VACCINE (#1) [facility] Start: 1981 HEPATITIS B (1 of 3 - 3-dose series) HEPATITIS B (1 of 3 - 3-dose series) [facility] Start: 1981 Hepatitis B Vaccines (1 of 3 - 3-dose series) Hepatitis B Vaccines (1 of 3 - 3-dose series) [facility] Start: 1981 HIV screening HIV Screening [facility] Start: 1981 Lipid panel Lipid Panel [facility] Start: 1981 Tetanus vaccination Tetanus: Every 10yrs [facility] End: 07-30-2024 Anti-cyclic citrullinated peptide antibody level [facility] Antibody Lab Add-On Polyarthralgia 1 Occurrences starting 07/30/2023 until 07/30/2024 [facility] Payers Date Payer Category Payer Medicaid [id number] 2022 Unknown 2022 Unknown [id number] 2021 Medicaid [employer] [id number] 2021-Present [phone] [address] [place] [address] Medicaid [id number] 2021 Medicaid [id number] 2021 Medicaid [id number] 1981 Unknown [id number] 1981 Unknown [id number] 1981 Unknown [id number] 1981 Unknown [id number] 1981 Unknown [id number] 1981 Unknown [id number] 1981 Unknown [id number] 1981 Unknown [id number] [id number] 1981 Unknown [id number] 1981 Unknown [id number] [id number]. 1981 Unknown [id number] 1981 Unknown [id number] 1981 Unknown [id number] Social History Date Type Detail Facility Start: 11-06-2022 End: 07-30-2023 Tobacco smoking status UTIS Smokes tobacco daily [facility] Work Phone: History of tobacco use Cigarette Smoker [facility] Work Phone: Start: 04-12-2018 End: 03-04-2022 Alcohol intake Current non-drinker of alcohol (finding) [facility] Start: 05-29-2015 History SDOH Alcohol Comment past alcohol use [facility] Start: 1980 Sex Assigned At Not on file [facility] Start: 02-22-2022 End: 03-04-2022 Exposure to SARS-CoV-2 (event) Not sure [facility] Start: 11-06-2022 End: 09-11-2023 Cigarettes smoked current (pack per day) - Reported 1 [facility] Start: 11-06-2022 End: 07-30-2023 Tobacco use and exposure Smokeless tobacco non-user [facility] Start: 07-30-2023 End: 09-11-2023 Gender identity Not on file [facility] Medical Equipment Procedure Code Equipment Code Equipment Origin al Text Equipment Identifier Dates Bard 3dmax Mesh [id number] Start: 07-19-2019 Clinical Notes 03-04-2022 to 12-16-2023 Polly Aviles Heather, DO - 12/16/2023 10:10 AM Lilibeth Mills LPN - 12/16/2023 9:44 AM Polly Pop, DO - 09/11/2023 10:30 AM Lilibeth Potter LPN - 09/11/2023 10:27 AM EDT Note Date & Type Note Facility 12-16-2023 History of Present illness Narrative Images from the original note were not included. RHEUMATOLOGY FOLLOW-UP VISIT Patient Name: Jose Mcnamara : 1980 Medical Record: [id number] PCP: Josselyn Galindo MD Referring provider: CHIEF COMPLAINT Abdominal pain, swallowing difficulties, arthralgias ASSESSMENT AND PLAN Jose Mcnamara is a 43 y.o. male who is being seen for evaluation of positive SSB and arthralgias. History of sicca symptoms Positive SSB x1 with repeat negative At this point, sicca symptoms are not patient's biggest complaint. He does have some swallowing issues, but this could be related to prior trauma to the neck. He also had a swallow study with overall normal findings asides from some mild esophageal retention. His repeat Sjogren's serologies were negative. He did have some changes noted on CT chest previously for which she was referred to pulmonology at his last visit. He recently had a vocal cord nodule removed and reports benign pathology. GI manifestations related to Sjogren's can occur, most commonly difficulty in swallowing or abnormal esophageal motility. Duodenitis, sigmoiditis, and IBD are possible manifestations. At this point, however, we do not have clear evidence that patient does have underlying Sjogren's. I recommended that patient continue to work on his GI issues at this point. If he does not have improvement in swallowing, could consider salivary gland biopsy to confirm diagnosis of Sjogren's, but treatment is typically organ system directed, so would not necessarily change the course of things. Crohn's disease Celiac I spoke with Dr. Godwin's office several months ago. Underlying diagnosis has been overall unclear. Findings have been most consistent with celiac. There has been some question of Crohn's disease. Patient reporting persistent significant abdominal pain and weight loss. He is going to get a second opinion from another GI in [place] to determine if anything additional can be done from a GI perspective. I have placed a referral. Polyarthralgia Patient continues with swelling in his right third PIP. Reports that steroids did not previously benefit him as far as his hands.. He has had trauma to the hands. If he does truly have underlying inflammatory bowel disease, this could be an associated arthritis, or could be a celiac disease related arthritis. In many cases, better control of the underlying disease can help with the inflammatory arthritis. For now, we will hold off on any immunosuppression from an inflammatory arthritis perspective given that hands are not significantly bothersome to patient. After control of abdominal symptoms, will consider whether further treatment for the hands is needed. Screening for viral diseases Patient requested hepatitis A screening for his Suboxone clinic. Return to clinic in 4 to 6 months. Please do not hesitate to contact me with any questions or concerns. Polly Aviles, [facility] [address] [place] [address] O: [phone] F: [phone] The above recommendations were discussed with the patient who understands and agrees with the plan. Portions of this note were copied forward from the patient's last clinic visit.? I have reviewed and updated the history, physical exam, data, assessment and plan of the note so that it reflects the evaluation and management of the patient on 12/16/2023. Portions of this note were created with [employer]. Every effort was made to proofread, but sound-alike errors may occasionally occur. Please contact me for any clarification of note contents. HISTORY OF PRESENT ILLNESS Jose Mcnamara is a 43 y.o. male who is being seen in follow-up for positive SSB and arthralgias Interval history Nursing intake form reviewed. Today for with his significant other. Reports that he is not doing well from an abdominal perspective. Reports that he is off of budesonide and the doxycycline. Imuran was stopped last visit. Reports that he is lost a fair amount of weight. Of note, he weighed 142 pounds at visit with us on September 11 and weighs 129 pounds today. Attributes weight loss to significant abdominal pain and inability to eat. Hands are the same as they have been. Reports that they have been somewhat swollen regards to his right middle digit for years. Does have history of trauma to the hands. Prior and initial history Patient visit (07/30/2023): Referred by GI for evaluation of positive SSB and concern for Sjogren's. Abdominal pain was worse symptoms. Occasional joint pain and some swelling/pain in hands. Previous injury to his elbow. Per discussion with Dr. Godwin's office (GI) underlying diagnosis of Crohn's is somewhat unclear. Findings more consistent with celiac disease given that course is somewhat atypical for Crohn's including constipation. Serologies Initial referral serologies: SSA negative. SSB elevated to 1.7 (RR 0-0.9). Remaining comprehensive panel normal. Studies [facility] with negative RF/CCP and repeat Sjogren antibodies including Ro 52, Ro 60, and SSB negative. Pertinent imaging/pathology Modified barium swallow grossly normal with some mild esophageal retention. CT chest with emphysematous changes in the upper lobes, worse on the right side. Evidence of scarring at the lung apices, more prominent on the right side. Mild increased linear markings in the posterior aspect of the lingular segment of the left upper lobe, suggestive of scarring. Prior rheumatology medications Azathioprine-prescribed by Dr. Godwin, but patient reports this was recently stopped. 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 Any adjustments/changes noted in HPI. PHYSICAL EXAM Vitals: 12/16/23 0943 BP: 97/62 Pulse: 94 Weight: 58.7 kg (129 lb 6.4 oz) Constitutional: ?No acute distress. Normal appearance. HENT: Head normocephalic?and atraumatic. Eyes: No discharge.??? Pulmonary: Pulmonary effort is normal. No?respiratory distress. Skin: Warm?and dry. No rash over exposed surfaces. Neurological: Alert. Psychiatric: Conversant. Musculoskeletal: Mild swelling over right third PIP. PAST MEDICAL AND SURGICAL HISTORY Past Medical History: Diagnosis Date Abdominal pain Alcohol abuse Anxiety Arthritis Back pain Bipolar disorder (HCC) Celiac disease Depression Drug abuse (HCC) Enlarged heart Gastric reflux GERD (gastroesophageal reflux disease) Hearing problem Hepatitis Migraine Ulcer (traumatic) of oral mucosa Past Surgical History: Procedure Laterality Date HERNIA REPAIR NECK SURGERY MEDICATIONS AND ALLERGIES Current Outpatient Medications Medication Sig Dispense Refill budesonide (ENTOCORT EC) 3 mg 24 hr capsule Take 2 (two) capsules (6 mg total) by mouth daily . buprenorphine-nalOXone (SUBOXONE) 8-[address] 2 and 1/2 tablets under the tongue and ALLOW to dissolve once daily dicyclomine (BENTYL) 20 mg tablet Take 1 (one) tablet (20 mg total) by mouth 2 (two) times a day . fluvoxaMINE (LUVOX) 100 MG tablet Take 1 (one) tablet (100 mg total) by mouth . lubiprostone (AMITIZA) 8 MCG capsule Take 1 (one) capsule (8 mcg total) by mouth 2 (two) times a day . OLANZapine (ZYPREXA) 5 MG tablet Take 0.5 (one-half) tablet (2.5 mg total) by mouth . OXcarbazepine (TRILEPTAL) 600 MG tablet propranoloL (INDERAL) 20 MG tablet Take 1 (one) tablet (20 mg total) by mouth . doxycycline hyclate (VIBRAMYCIN) 100 MG capsule Take 1 (one) capsule (100 mg total) by mouth 2 (two) times a day . No current facility-administered medications for this visit. Allergies Allergen Reactions Penicillins Unknown and Rash LABS Autoimmune serologies See HPI Inflammatory Markers CRP(Inflammation) (mg/L) Date Value 07/30/2023 5.8 Blood Counts/Creatinine/Liver Function WBC (K/mcL) Date Value 07/30/2023 12.42 (H) Hemoglobin (g/dL) Date Value 07/30/2023 16.8 MCV (fL) Date Value 07/30/2023 86.7 Platelets (K/mcL) Date Value 07/30/2023 204 Creatinine (mg/dL) Date Value 07/30/2023 0.80 AST (U/L) Date Value 07/30/2023 15 ALT (U/L) Date Value 07/30/2023 26 IMAGING MSK imaging reviewed with pertinent findings mentioned in HPI. RHEUMATOLOGY FOLLOW-UP VISIT INTAKE: Have you had any new illnesses, infections, or hospitalizations? ? []Yes [x]No If yes, please specify: Are you having any side effects from your rheumatology medications? ? []Yes ? [x]No ? []N/A If yes, please specify: Are you having morning stiffness? ? []Yes [x]No How many minutes does it last? Are you having any joint swelling? ? []Yes [x]No If yes, what joints? Global Assessment: Considering all of the ways that your disease affects you, how are you doing (0 = best ; 10 = worst)? 8.5 documented in this encounter [facility] 09-11-2023 History of Present illness Narrative Images from the original note were not included. RHEUMATOLOGY FOLLOW-UP VISIT Patient Name: Jose Mcnamara : 1980 Medical Record: [id number] PCP: Josselyn Galindo MD Referring provider: CHIEF COMPLAINT Positive SSB, arthralgias ASSESSMENT AND PLAN Jose Mcnamara is a 43 y.o. male who is being seen for evaluation of positive SSB and arthralgias. History of sicca symptoms Positive SSB x1 with repeat negative Findings may represent Sjogren's syndrome, however, repeat SSB was negative. Swallow study with overall normal findings aside from some mild esophageal retention. 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 We will request these records. CT chest showed small benign-appearing bilateral axillary lymph nodes, emphysematous changes, and scarring at the lung apices more present on the right side with mild increased linear markings in the posterior aspect of the lingular segment of the left upper lobe. Will refer to pulmonology for evaluation on whether these are smoking related changes versus possible underlying findings of ILD. GI manifestations related to Sjogren's can occur, most commonly difficulty in swallowing or abnormal esophageal motility which could be related to the mild esophageal retention noted on swallow study. Duodenitis, sigmoiditis, and IBD are possible manifestations. We will request most recent GI note from Dr. Godwin's office. At this point, from a Sjogren's perspective, no specific immunosuppression is indicated. Treatment is typically targeted at organ-specific manifestations. We can consider a salivary biopsy after he completes upcoming surgery to confirm whether or not he truly has Sjogren's. Crohn's disease Celiac I spoke with Dr. Godwin's office in July. Underlying diagnosis of Crohn's has been unclear. Findings in general have been more consistent with celiac disease. Patient also reports that he was recently diagnosed with abdominal migraine and put on several new medications. Imuran was stopped. We will request GI notes for further updates. Polyarthralgia Patient with some synovitis present in scattered PIPs, particularly his right third PIP. Joint pain is not his biggest complaint at this time, but can be associated with both Crohn's and celiac. For now, we will hold off on any systemic immunosuppression given unclear source of the synovitis, upcoming surgery, and still difficult control of abdominal symptoms. Screening for viral diseases Hepatitis B, C and HIV screening ordered for Suboxone clinic per patient's request. Return to clinic in 3 months Please do not hesitate to contact me with any questions or concerns. Polly Aviles, [facility] Rheumatology [address] [place] [address] O: [phone] F: [phone] The above recommendations were discussed with the patient who understands and agrees with the plan. Portions of this note were copied forward from the patient's last clinic visit.? I have reviewed and updated the history, physical exam, data, assessment and plan of the note so that it reflects the evaluation and management of the patient on 09/13/2023. Portions of this note were created with [employer]. Every effort was made to proofread, but sound-alike errors may occasionally occur. Please contact me for any clarification of note contents. HISTORY OF PRESENT ILLNESS Jose Mcnamara is a 43 y.o. male who is being seen in follow-up for positive SSB and arthralgias Interval history Nursing intake form reviewed. Overall, stomach is feeling little bit better. Reports that he was diagnosed with abdominal migraine and started on 2 new medications. Reports that he is no longer on Imuran. Saw Dr. Godwin a couple weeks ago. Reports that he had a swallow study. He was under the impression that there was some type of abnormality. 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 States that he is scheduled for surgery for removal in September. We do not have these records yet available. Prior and initial history Patient visit (07/30/2023): Referred by GI for evaluation of positive SSB and concern for Sjogren's. Abdominal pain was worse symptoms. Occasional joint pain and some swelling/pain in hands. Previous injury to his elbow. Per discussion with Dr. Godwin's office (GI) underlying diagnosis of Crohn's is somewhat unclear. Findings more consistent with celiac disease given that course is somewhat atypical for Crohn's including constipation. Serologies Initial referral serologies: SSA negative. SSB elevated to 1.7 (RR 0-0.9). Remaining comprehensive panel normal. Studies [facility] with negative RF/CCP and repeat Sjogren antibodies including Ro 52, Ro 60, and SSB negative. Pertinent imaging/pathology Modified barium swallow grossly normal with some mild esophageal retention. CT chest with emphysematous changes in the upper lobes, worse on the right side. Evidence of scarring at the lung apices, more prominent on the right side. Mild increased linear markings in the posterior aspect of the lingular segment of the left upper lobe, suggestive of scarring. Prior rheumatology medications Azathioprine-prescribed by Dr. Godwin, but patient reports this was recently stopped. 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 Any adjustments/changes noted in HPI. PHYSICAL EXAM Vitals: 09/11/23 1027 BP: (!) 94/59 Pulse: (!) 109 Weight: 64.8 kg (142 lb 14.4 oz) Constitutional: ?No acute distress. Normal appearance. HENT: Head normocephalic?and atraumatic. Eyes: No discharge.??? Pulmonary: Pulmonary effort is normal. No?respiratory distress. Skin: Warm?and dry. No rash over exposed surfaces. Neurological: Alert. Psychiatric: ?Mildly anxious. Musculoskeletal: Please see image below for joseph joint exam: PAST MEDICAL AND SURGICAL HISTORY Past Medical History: Diagnosis Date Abdominal pain Alcohol abuse Anxiety Arthritis Back pain Bipolar disorder (HCC) Celiac disease Depression Drug abuse (HCC) Enlarged heart Gastric reflux GERD (gastroesophageal reflux disease) Hearing problem Hepatitis Migraine Ulcer (traumatic) of oral mucosa Past Surgical History: Procedure Laterality Date HERNIA REPAIR NECK SURGERY MEDICATIONS AND ALLERGIES Current Outpatient Medications Medication Sig Dispense Refill budesonide (ENTOCORT EC) 3 mg 24 hr capsule Take 2 (two) capsules (6 mg total) by mouth daily . buprenorphine-nalOXone (SUBOXONE) 8-[address] 2 and 1/2 tablets under the tongue and ALLOW to dissolve once daily dicyclomine (BENTYL) 20 mg tablet Take 1 (one) tablet (20 mg total) by mouth 2 (two) times a day . doxycycline hyclate (VIBRAMYCIN) 100 MG capsule Take 1 (one) capsule (100 mg total) by mouth 2 (two) times a day . fluvoxaMINE (LUVOX) 100 MG tablet Take 1 (one) tablet (100 mg total) by mouth . lubiprostone (AMITIZA) 8 MCG capsule Take 1 (one) capsule (8 mcg total) by mouth 2 (two) times a day . OLANZapine (ZYPREXA) 5 MG tablet Take 0.5 (one-half) tablet (2.5 mg total) by mouth . OXcarbazepine (TRILEPTAL) 600 MG tablet propranoloL (INDERAL) 20 MG tablet Take 1 (one) tablet (20 mg total) by mouth . No current facility-administered medications for this visit. Allergies Allergen Reactions Penicillins Unknown and Rash LABS Autoimmune serologies See HPI Inflammatory Markers CRP(Inflammation) (mg/L) Date Value 07/30/2023 5.8 Blood Counts/Creatinine/Liver Function WBC (K/mcL) Date Value 07/30/2023 12.42 (H) Hemoglobin (g/dL) Date Value 07/30/2023 16.8 MCV (fL) Date Value 07/30/2023 86.7 Platelets (K/mcL) Date Value 07/30/2023 204 Creatinine (mg/dL) Date Value 07/30/2023 0.80 AST (U/L) Date Value 07/30/2023 15 ALT (U/L) Date Value 07/30/2023 26 IMAGING MSK imaging reviewed with pertinent findings mentioned in HPI. Rheumatology Follow-up Visit Intake: Since your last visit: Have you had any illnesses, infections, or hospitalizations [x]Yes []No Please specify: Have you been diagnosed with any other new health conditions? [x]Yes []No Please specify:? Stomach migraine Are you have any side effects from rheumatology medications? []Yes [x]No Have you started, changed, or stopped any medications? []Yes [x]No Symptoms: Are you having morning stiffness? []Yes [x]No How long? Are you having any joint swelling? [x]Yes []No Where? legs What joints are the most painful? Are you having any of the following symptoms? []Dry eyes []Dry mouth []Oral ulcers []Nasal ulcers [x]Eye redness []Vision problems []Blood in urine [x]Blood in stool []Chest pain []Shortness of breath [x]Headaches []Color changes in fingers or toes []Unexplained rash [x]Photosensitivity []Hair loss []New blood clots Global Assessment: Consider all of the ways your disease affects you, how are you doing (0-10)? 8.0 documented in this encounter [facility] 08-12-2023 History of Present illness Narrative Per Castro Dubose, CT's do not require a prior auth. REF# [id number]. documented in this encounter [facility] 07-30-2023 Instructions Polly Aviles DO - 07/30/2023 9:09 AM EDT Call [phone] to schedule swallow study Labs and xrays today Try sugar free lemon drops and biotene mouth wash for dry mouth/swallowing problems See you back in 2 weeks documented in this encounter [facility] 09-14-2023 History of Present illness Narrative Images from the original note were not included. RHEUMATOLOGY NEW PATIENT VISIT Patient Name: Jose Mcnamara : 1980 Medical Record: [id number] PCP: Ynes Ovalles MD Referring provider: Ynes Ovalles REASON FOR REFERRAL Positive SSB, arthralgias ASSESSMENT AND PLAN Jose Mcnamara is a 43 y.o. male who is being seen for evaluation of positive SSB and arthralgias. Positive SSB Concern for Sjogren's Noted on outside labs. Suspect that this represents Sjogren's given symptoms of dry eye and dry mouth and difficulty swallowing. Patient also endorses shortness of breath, but does have smoking history. Poor dentition noted on exam which may be secondary to ongoing dryness from Sjogren's. Sjogren's disease can contribute to GI symptoms, including dysphagia, however, no clear treatment options exist aside from symptomatic care. Patient also has other underlying GI issues with his Crohn's and celiac disease. Plan: Repeat SSA/SSB here Chest x-ray and then likely CT chest to evaluate for underlying ILD given Sjogren's and shortness of breath Will order swallow study for further evaluation of dysphagia. Discussed symptomatic treatment at this point which involves artificial tears, sugar-free lemon drops, Biotene mouthwash. Can consider cevimeline in the future. Polyarthralgia Concerned that patient may have Crohn's associated inflammatory arthritis. He has synovitis and pain in multiple PIPs in bilateral hands. He is having significant abdominal pain at this time, so concerned that Crohn's may not be controlled which can also lead to lack of control of arthritis symptoms. Plan: X-rays of bilateral hands, ADDENDUM: xrays of bilateral feet, RF, CCP, and ESR/CRP ordered. Crohn's disease Follows with Dr. Godwin (GI) in [place]. Currently on azathioprine, budesonide, and lubiprostone. Continues with abdominal pain and diarrhea, so concerned that Crohn's may not be controlled. Plan: After above work-up results, will coordinate care with Dr. Godwin to discuss if treatment with an agent that would cover both Crohn's disease and inflammatory arthritis would be of benefit. Return to clinic in 2 weeks Please do not hesitate to contact me with any questions or concerns. Pollyshanelle Aviles DO [facility] Rheumatology [address] [place] [address] O: [phone] F: [phone] The above recommendations were discussed with the patient who understands and agrees with the plan. Portions of this note were created with [employer]. Every effort was made to proofread, but sound-alike errors may occasionally occur. Please contact me for any clarification of note contents. I spent of total of 65 minutes on this patient encounter on the date of visit. [x]Reviewing records in preparation for the visit [x]Obtaining history and performing exam [x]Counseling patient on the plan [x]Ordering medications and/or tests []Referring to another provider or coordinating care [x]Documentation in the electronic medical record Level of service: 5 (high) based upon time spent on encounter. HISTORY OF PRESENT ILLNESS Jose Mcnamara is a 43 y.o. male with past medical history of hepatitis C, GERD with history of duodenitis and gastric ulcers, Crohn's, who was referred by Ynes Ovalles for evaluation for Sjogren's. Patient here for evaluation today with his significant other. Reports that his biggest concern at this time is persistent abdominal pain. It has been so bad the last couple days he has been unable to work. Reports he has periods of time where it gets better and then worse. Is scheduled to see his institutional custodian Dr. Godwin in about a month. Reports that he is on azathioprine and budesonide, however, has had some periods of time where he has been out of the budesonide. He thinks that the budesonide works. He also reports dry eyes/dry mouth symptoms. Reports that the main dry mouth symptom is difficulty swallowing. He has difficulty getting liquids down sometimes and has to spit them out. Also reports that he has some shortness of breath but he recently quit smoking about 2 days ago. He has lost some weight over the course of his Crohn's disease. Denies having any bloody diarrhea at this time. Also having some joint pain, however the abdominal pain is worse. He has had multiple injuries to his hands in the past, however, does notice some swelling/pain in the hands. His elbow on the left bothers him as well, however, he has prior injury there. Per chart/record review: GI notes from Dr. Godwin's office received. HCV antibody reactive but viral load not detected. Has Crohn's disease and is on azathioprine, budesonide, and lubiprostone. There is been some concern for celiac disease. SSB noted to be positive History of: (Check Steve is Positive. Empty Box is Negative) []Raynaud's []Skin thickening []Puffy Fingers []Photosensitivity []Psoriasis []Dactylitis []Inflammatory eye disease [x]Inflammatory bowel disease (Crohn's) []Pericarditis []Pleural effusions []Miscarriages []Blood clots Serologies SSA negative. SSB elevated to 1.7 (RR 0-0.9). Remaining comprehensive panel normal. TPMT with normal activity. 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 Empty box indicates negative. Constitutional:?? []Fever [x]Fatigue [x]Unexpected weight loss Eyes:?? [x]Change in visual acuity [x]Dry eyes []Redness HENT:? []Oral/nasal ulcers [x]Dry mouth [x]Difficulty swallowing Cardiovascular:?? [x]Chest pain []Palpitations [x]Edema Respiratory:?? [x]Cough [x]Shortness of breath []Edema GI:?? [x]Abdominal pain [x]Diarrhea []Constipation []Bloody stools : []Dysuria []Hematuria Musculoskeletal: See HPI Integument:?? []Rash []Hair loss Neurologic:?? [x]Headache [x]Dizziness Psychiatric:?? [x]Depression [x]Anxiety Endocrine:?? [x]Polydipsia []Polyuria Lymphatic:?? []Swollen glands Allergic/Immunologic: []Seasonal allergies []Frequent infections PAST MEDICAL AND SURGICAL HISTORY Past Medical History: Diagnosis Date Abdominal pain Alcohol abuse Anxiety Arthritis Back pain Bipolar disorder (HCC) Celiac disease Depression Drug abuse (HCC) Enlarged heart Gastric reflux GERD (gastroesophageal reflux disease) Hearing problem Hepatitis Migraine Ulcer (traumatic) of oral mucosa Past Surgical History: Procedure Laterality Date HERNIA REPAIR NECK SURGERY MEDICATIONS AND ALLERGIES Current Outpatient Medications Medication Sig Dispense Refill azaTHIOprine (IMURAN) 50 mg tablet Take 2 (two) tablets (100 mg total) by mouth daily . budesonide (ENTOCORT EC) 3 mg 24 hr capsule Take 2 (two) capsules (6 mg total) by mouth daily . buprenorphine-nalOXone (SUBOXONE) 8-[address] 2 and 1/2 tablets under the tongue and ALLOW to dissolve once daily dicyclomine (BENTYL) 20 mg tablet Take 1 (one) tablet (20 mg total) by mouth 2 (two) times a day . doxycycline hyclate (VIBRAMYCIN) 100 MG capsule Take 1 (one) capsule (100 mg total) by mouth 2 (two) times a day . fluvoxaMINE (LUVOX) 100 MG tablet Take 1 (one) tablet (100 mg total) by mouth . lubiprostone (AMITIZA) 8 MCG capsule Take 1 (one) capsule (8 mcg total) by mouth 2 (two) times a day . OLANZapine (ZYPREXA) 5 MG tablet Take 0.5 (one-half) tablet (2.5 mg total) by mouth . OXcarbazepine (TRILEPTAL) 600 MG tablet propranoloL (INDERAL) 20 MG tablet Take 1 (one) tablet (20 mg total) by mouth . No current facility-administered medications for this visit. Allergies Allergen Reactions Penicillins Unknown and Rash PHYSICAL EXAM Vitals: 07/30/23 0800 BP: 113/78 Pulse: 67 Weight: 62.6 kg (138 lb) Height: 5' 9 Constitutional: ?No acute distress. Normal appearance. Not?ill-appearing. Thin. HENT: Head normocephalic?and atraumatic. Report infection. Eyes: No discharge.??? Pulmonary: Pulmonary effort is normal. No?respiratory distress. Skin: Warm?and dry. No rash over exposed surfaces. Neurological: Alert. Psychiatric: ???Mood, affect, thought content normal. Musculoskeletal: Gait: Ambulates without assistance Upper Extremities: Synovitis as below. Lower Extremities: No synovitis detected. Please see image below for joseph joint exam: LABS Autoimmune serologies See HPI Inflammatory Markers CRP(Inflammation) (mg/L) Date Value 07/30/2023 5.8 Blood Counts/Creatinine/Liver Function WBC (K/mcL) Date Value 07/30/2023 12.42 (H) Hemoglobin (g/dL) Date Value 07/30/2023 16.8 MCV (fL) Date Value 07/30/2023 86.7 Platelets (K/mcL) Date Value 07/30/2023 204 Creatinine (mg/dL) Date Value 07/30/2023 0.80 AST (U/L) Date Value 07/30/2023 15 ALT (U/L) Date Value 07/30/2023 26 Hepatitis B & C /TB quant No results found for: HEPBSAG , HEPBCAB , HEPCAB Vitamin Levels No results found for: B12B , FOLATE IMAGING Pertinent imaging noted in HPI. documented in this encounter [facility] 06-16-2023 Note Closed referral per Manuela declining appt for pt. See previous note [facility] 06-16-2023 Telephone encounter Note Closed referral per Manuela declining appt for pt. See previous note [facility] 06-16-2023 Miscellaneous Notes Closed referral per Manuela declining appt for pt. See previous note Manuela is calling back in for an update. She was advised the office is scheduling into next year and is no longer needing to schedule the patient. 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 Archibald Practice: [facility] – [place] Rheumatology Chief Complaint/Reason for Call: Manuela states that she would like to receive a cb to discuss if the providers are accepting [place] and when the soonest appt would be. Pt has a ref in chart for sjogrens w/ organ involvement. Please advise. Best time of day caller can be reached: Any Patient advised that office/PCP has 24-48 business hours to return their call: No documented in this encounter [facility] 06-15-2023 Telephone encounter Note Manuela is calling back in for an update. She was advised the office is scheduling into next year and is no longer needing to schedule the patient. [facility] 06-15-2023 Miscellaneous Notes Manuela is calling back in for an update. She was advised the office is scheduling into next year and is no longer needing to schedule the patient. 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 Archibald Practice: [facility] – [place] Rheumatology Chief Complaint/Reason for Call: Manuela states that she would like to receive a cb to discuss if the providers are accepting [place] and when the soonest appt would be. Pt has a ref in chart for sjogrens w/ organ involvement. Please advise. 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 Archibald Practice: [facility] – [place] Rheumatology Chief Complaint/Reason for Call: Manuela states that she would like to receive a cb to discuss if the providers are accepting [place] and when the soonest appt would be. Pt has a ref in chart for sjogrens w/ organ involvement. Please advise. 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 Archibald Practice: [facility] – [place] Rheumatology Chief Complaint/Reason for Call: Manuela states that she would like to receive a cb to discuss if the providers are accepting Gr[place] and when the soonest appt would be. Pt has a ref in chart for sjogrens w/ organ involvement. Please advise. Best time of day caller can be reached: Any Patient advised that office/PCP has 24-48 business hours to return their call: No documented in this encounter [facility] 11-07-2022 Miscellaneous Notes Phone call placed patient advised (see prior provider encounter) Patient verbalized understanding, agreed with plan of care. Leonora Coe LPN Please call and let patient know he did test positive for influenza A. Continue [id number] medications as needed for cough and congestion. If not improving over the next 3 to 5 days follow-up with PCP. documented in this encounter [facility] 11-06-2022 Influenza virus A and B RNA and SARS-CoV-2 (COVID-19) N gene panel MEME+probe (Resp) COVID 19 RESULT: SARS-CoV-2 (Agent of COVID-19) Not Detected by RT-PCR or equivalent method. fredis [id number]_Pzmaj [employer] ([place])_EUA This test was developed and its performance characteristics determined by [facility] [place]. This test has been authorized by FDA under an Emergency Use Authorization (EUA). This test has been validated in accordance with the FDA's Guidance Document Policy for Diagnostics Testing in Laboratories Certified to Perform High Complexity Testing under CLIA prior to Emergency use Authorization for Coronavirus Disease 2019 during the Public Health Emergency issued on January 14, 2020. Test performed by [facility], [facility] [place], [address], [place] [address]. INFLUENZA A PCR: Positive for Influenza A by RT-PCR INFLUENZA B PCR: Negative for Influenza B by RT-PCR [facility] Diagnosis Viral illness- Primary Unspecified viral infection, in conditions classified elsewhere and of unspecified site [facility] Diagnosis Sjogren's syndrome, with unspecified organ involvement (HCC)- Primary Crohn's disease with complication, unspecified gastrointestinal tract location (HCC) Polyarthralgia Pain in joint, multiple sites Shortness of breath Dysphagia, unspecified type Sjogren's syndrome, with unspecified organ involvement (HCC) Polyarthralgia Pain in joint, multiple sites Sjogren's syndrome, with unspecified organ involvement (HCC) Polyarthralgia Pain in joint, multiple sites Sjogren's syndrome, with unspecified organ involvement (HCC) Polyarthralgia Pain in joint, multiple sites Sjogren's syndrome, with unspecified organ involvement (HCC) Polyarthralgia Pain in joint, multiple sites documented in this [facility] Diagnosis Sjogren's syndrome, with unspecified organ involvement (HCC)- Primary Crohn's disease with complication, unspecified gastrointestinal tract location (HCC) Polyarthralgia Pain in joint, multiple sites Shortness of breath Dysphagia, unspecified type Sjogren's syndrome, with unspecified organ involvement (HCC) Polyarthralgia Pain in joint, multiple sites Sjogren's syndrome, with unspecified organ involvement (HCC) Polyarthralgia Pain in joint, multiple sites Sjogren's syndrome, with unspecified organ involvement (HCC) Polyarthralgia Pain in joint, multiple sites Sjogren's syndrome, with unspecified organ involvement (HCC) Polyarthralgia Pain in joint, multiple sites documented in this [facility] Diagnosis Sjogren's syndrome with keratoconjunctivitis sicca (HCC)- Primary Polyarthralgia Pain in joint, multiple sites Celiac disease Encounter for screening for other viral diseases Crohn's disease of colon with complication (HCC) Abnormal CT of the chest Nonspecific (abnormal) findings on radiological and other examination of other intrathoracic organs [facility] Diagnosis Polyarthralgia- Primary Pain in joint, multiple sites Crohn's disease of colon with complication (HCC) Celiac disease Smoking history Sicca, unspecified type (HCC) Dysphagia, unspecified type documented in this encounter [facility] Summary Purpose Family History No Family History Records FoundNo Family History Records FoundNo Family History Records FoundNo Family History Records FoundNo Family History Records FoundNo Family History Records FoundNo Family History Records FoundNo Family History Records Found Advance Directives No Advanced Directives Records FoundDocuments on File Type Date Recorded Patient Knifeman Expl anation Advance Directive(s) 02/14/2021 8:36 AM Advance Directive(s) 07/19/2019 11:02 AM Health Concerns Infection Onset Date Last Indicated Resolved Time COVID-19 Rule-Out 11/06/2022 11/06/2022 11/07/2022 4:14 AM EST Reason for Referral Specialty Diagnoses / Procedures Referred By Elvin quiñones Referred To Contact Radiology Diagnoses Sjogren's syndrome, with unspecified organ involvement (HCC) Dysphagia, unspecified type Procedures XR Modifed Barium Swallow Polly Aviles, DO [address] [place] [address] Referral ID Status Reason Start Date Expiration Date V isits Requested Visits Authorized [id number] Pending Review 07/30/2023 07/29/2024 1 1 Specialty Diagnoses / Procedures Referred By Biancaac t Referred To Contact Pulmonary Disease Diagnoses Polyarthralgia Polly Aviles DO [address] [place] [address] [address] Phone: [phone] Referral ID Status Reason Start Date Expiration Date Visits Requested Visits Authorized [id number] Closed Patient Preference 09/11/2023 09/10/2024 1 1 Specialty Diagnoses / Procedures Referred By Contac t Referred To Contact Gastroenterology Diagnoses Crohn's disease of colon with complication (HCC) Celiac disease Polly Aviles DO [address] [place] [address] Mal Brian MD [address] [place] [address] Referral ID Status Reason Start Date Expiration Date V isits Requested Visits Authorized [id number] Closed Specialty Services Required/Marisa ent's Best Interest 12/16/2023 12/15/2024 1 1 Additional Source Comments (unrecognized sect ion and content) No Status Records FoundNo Status Records FoundNo Status Records FoundNo Status Records FoundNo Status Records FoundNo Status Records FoundNo Status Records FoundNo Status Records Found INFORMATION SOURCE (unrecogn ized section and content) DATE CREATED AUTHOR AUTHOR'S ORGANIZ ATION 06/03/2021 [facility] DATE CREATED AUTHOR AUTHOR'S ORGANIZ ATION 10/01/2022 [facility] DATE CREATED AUTHOR AUTHOR'S ORGANIZ ATION 11/09/2022 [facility] DATE CREATED AUTHOR AUTHOR'S ORGANIZ ATION 06/17/2023 [facility] DATE CREATED AUTHOR AUTHOR'S ORGANIZ ATION 12/18/2023 [facility] DATE CREATED AUTHOR AUTHOR'S ORGANIZ ATION 12/20/2023 [facility] Source Comments (unrecognize d section and content) In the event this informatio n is protected by the Federal Confidentiality of Alcohol and Drug Abuse Patient Records regulations: The Federal rules restrict any use of the information to criminally investigate or prosecute any alcohol or drug abuse patient.[facility] the event this information is protected by the Federal Confidentiality of Alcohol and Drug Abuse Patient Records regulations: The Federal rules restrict any use of the information to criminally investigate or prosecute any alcohol or drug abuse patient.[facility] the event this information is protected by the Federal Confidentiality of Alcohol and Drug Abuse Patient Records regulations: The Federal rules restrict any use of the information to criminally investigate or prosecute any alcohol or drug abuse patient.[facility] the event this information is protected by the Federal Confidentiality of Alcohol and Drug Abuse Patient Records regulations: The Federal rules restrict any use of the information to criminally investigate or prosecute any alcohol or drug abuse patient.[facility] Reason for Visit (unrecogniz ed section and content) Reason Comments Results Reason Comments Cough Cough, congestion, w heezing, bodyaches and ROMANO x 2 days-exposed to COVID Reason Onset Date Comments Advice Only 06/11/2023 Reason Comments Consult Sjogrens syndrome Specialty Diagnoses / Procedures Referred By Contac t Referred To Contact Rheumatology Diagnoses Sjogren's syndrome, with unspecified organ involvement ([facility]) Ynes Ovalles MD [address] [place] [address] Polly Aviles DO [address] [place] [address] Referral ID Status Reason Start Date Expiration Date Visits Re quested Visits Authorized [id number] Closed 07/14/2023 07/13/2024 1 1 Care Teams (unrecognized sec tion and content) Animal Skinner Relationship Specialty Start Date End Date Lou Nunez, CLEANING AND MAINTENANCE WORKER [address] [place] [address] PCP - General Internal Medicine 05/24/21 Ольга Jane [address] [facility] [place] [address] Referring Infectious Diseases 05/22/21 Animal Skinner Relationship Specialty Start Date End Date Lou Nunez CLEANING AND MAINTENANCE WORKER [address] [place] [address] PCP - General Internal Medicine 05/24/21 Ольга Jane MD Referring Infectious Diseases 05/22/21 Animal Skinner Relationship Specialty Start Date End Date Lou Nunez, JACKIE [address] [place] [address] PCP - General Internal Medicine 05/24/21 Ольга Jane MD Referring Infectious Diseases 05/22/21 Animal Skinner Relationship Specialty Start Date End Date Ynes Ovalles MD [address] [place] [address] [place] [address] PCP - General Internal Medicine 07/14/23 KENY GODWIN Primary Care Physician 07/14/23 Animal Skinner Relationship Specialty Start Date End Date Ynes Ovalles MD [address] [place] [address] [place] [address] PCP - General Internal Medicine 07/14/23 KENY GODWIN Primary Care Physician 07/14/23 Animal Skinner Relationship Specialty Start Date End Date Ynes Ovalles MD [address] [place] [address] [place] [address] PCP - General Internal Medicine 07/14/23 KENY GODWIN Primary Care Physician 07/14/23 Animal Skinner Relationship Specialty Start Date End Date Ynes Ovalles MD [address] [place], [place] [id number] PCP - General Internal Medicine 07/14/23 09/12/23 KENY GODWIN Primary Care Physician 07/14/23 Animal Skinner Relationship Specialty Start Date End Date Josselyn Galindo MD [address] [place], [place] [id number] PCP - General Internal Medicine 09/13/23 KENY GODWIN Primary Care Physician 07/14/23 FOR RECORDS PERTAINING TO PATIENTS WHO ARE OR HAVE BEEN ENROLLED IN A CHEMICAL DEPENDENCY/SUBSTANCEABUSE PROGRAM, SOME INFORMATION MAY BE OMITTED. This clinical summary was aggregated from multiple sources. Caution should be exercised in using it in the provision of clinical care. This summary normalizes information from multiple sources, and as a consequence, information in this document may materially change the coding, format and clinical context of patient data. In addition, data may be omitted in some cases. CLINICAL DECISIONS SHOULD BE BASED ON THE PRIMARY CLINICAL RECORDS. [facility] [employer] [facility]. provides no warranty or guarantee of the accuracy or completeness of information in this document.
[2023-12-21] MEDS: Lorazepam 2 MG/ML WCH Syringe 0.5 MG IV (11:29)
[2023-12-21 11:33] VITALS: PULSE 68; RESP 12; O2SAT 99
== END 2023-12-21 11:35 | disposition home or self-care (01) ==
PROVIDERS: Emergency Provider Student in an Organized Health Care Education/Training Program; PCP Internal Medicine; Visit Provider Student in an Organized Health Care Education/Training Program
DX: R11.2 Nausea with vomiting, unspecified (principal); J44.9 Chronic obstructive pulmonary disease, unspecified; F31.9 Bipolar disorder, unspecified; E27.8 Other specified disorders of adrenal gland; K82.8 Other specified diseases of gallbladder; F12.90 Cannabis use, unspecified, uncomplicated; F17.210 Nicotine dependence, cigarettes, uncomplicated; F11.90 Opioid use, unspecified, uncomplicated; R10.9 Unspecified abdominal pain; K21.9 Gastro-esophageal reflux disease without esophagitis
CPT/HCPCS: 74177; 80048; 80076; 83690; 85025; 96361; 96374; 99283; Q9967; A4216

== ENCOUNTER → 2023-12-25 | Outpatient (CLI) | payer BC, MEDICAID, SELFPAY ==
--- NOTE | 2023-12-25 07:13 | NM_ITS ---
CLINICAL: 43-year-old male with history of abdominal pain. RADIONUCLIDE HEPATOBILIARY SCINTIGRAPHY COMPARISON: Gallbladder ultrasound report 12/25/2023, CT of the abdomen-pelvis report 12/21/2023 FINDINGS: Following the intravenous administration of 5.7 mCi of 99m Tc Mebrofenin, hepatobiliary images reveal: 1. Relatively prompt and homogeneous radiopharmaceutical concentration is noted by a normal sized liver. No parenchymal defects are identified. 2. Gallbladder activity is identified at approximately 15 minutes post radiopharmaceutical administration. 3. Small intestinal tract is not visualized during 60 minutes of pre-CCK sequential imaging. Small bowel activity is identified following the administration of cholecystokinin. 4. Washout of the radiopharmaceutical by the hepatic parenchyma appears qualitatively normal. Cholecystokinin (0.02 ug/kg) was administered intravenously over a 30-minute period. The post CCK gallbladder ejection fraction calculated at 20 minutes following Cholecystokinin administration was noted to be 70.0 % (normal greater than 35%). During 30 minutes of post CCK imaging, there is no scintigraphic evidence of reflux of the radiotracer into the common hepatic duct or refilling of the gallbladder. NM/Hepatobilliary Img w/Pharm Int IMPRESSION: 1. NORMAL 99m Tc Mebrofenin hepatobiliary imaging examination with Cholecystokinin. A. A gallbladder ejection fraction calculated to be greater than 35% following the administration of Cholecystokinin makes the probability of functional hepatobiliary disease (gallbladder and/or sphincter of Oddi dyskinesia) and/or organic hepatobiliary disease (chronic acalculous cholecystitis and/or cystic duct syndrome) to be low. (Mauricio Olivarez et al, Journal of Nuclear Medicine 32:1695, 1991). Electronically Signed: Arash Ott DO at 10:57 EST ,
--- NOTE | 2023-12-25 07:13 | US_ITS ---
STUDY: ABDOMINAL ULTRASOUND - RIGHT UPPER QUADRANT REASON FOR VISIT: Male, 43 years old Abd pain TECHNIQUE: Ultrasound evaluation of the right upper quadrant was performed with real-time and static bhandari-scale imaging. TECHNICAL QUALITY: Adequate. COMPARISON: None. FINDINGS: Liver: The liver measures 16.9 cm. There is normal echogenicity of the liver. The bile ducts are within normal limits. There is hepatic color flow. The direction of portal flow is hepatopetal. There is no demonstrated mass lesion. Gallbladder: Normal distended gallbladder. The gallbladder wall measures 2 mm. There is a negative sonographic Brothers''s sign. There is no pericholecystic fluid. There are no gallstones. Common Bile Duct (C.B.D.): The common bile duct measures 5 mm. Pancreas: Normal size of the head, body and tail of the pancreas. There is normal echogenicity of the pancreas. There is no demonstrated pancreatic mass or cyst. Right Kidney: Normal size of the right kidney. The right kidney measures 11.2 cm. Normal renal cortex. The right cortex measures 1.3 cm. There is no demonstrated renal mass or cyst. There is no right hydronephrosis. US/Gallbladder IMPRESSION: Normal right upper quadrant ultrasound examination. Electronically Signed: Eric Orona MD at 9:31 EST ,
--- OUTSIDE RECORDS SUMMARY | 2023-12-25 07:31 | XMS RPT_ITS | CCD ---
Author Name Unknown Address [address] [place] [address] Organization [facility] Care Team Providers Care Machines Technician Name Role Phone LosJohnEvaristo Unavailable Unavailable PROVIDER, UNKNOWN Unavailable Unavailable No, PCP Unavailable Unavailable SignsОльга Unavailable Nunez JACKIE, Lou Cohen Primary Care Provider TRENT MCCAIN Attending Unavailable TRENT MCCAIN Referring Unavailable Signs Ольга TINOCO Unavailable Nunez JACKIE, Lou Cohen Primary Care Provider LOU NUNEZ Primary Care Unavailable ANA POWELL Referring Unavailable NUNEZCASEI Noel Primary Care Unavailable LOU HAMMER Referring Unavailable CASE NUNEZI K Primary Care Unavailable CASE NUNEZI K Primary Care Unavailable Unavailable Primary Care Provider UnavailYnes Kuhn MD Primary Care Provider [phone] Ynes Ovalles MD Primary Care Provider Josselyn [...] Penicillins; Translations: [PENICILLINS] Drug Intolerance 5 Intolerance [facility] (7 sources) Penicillins Drug Intolerance 5 Intolerance, Unknown, Rash [facility] Medications Current Medications Medication Drug Class(es) Dates [...] mass index (BMI) [Ratio] 19.11 kg/m2 Polly Mashable DO Work Phone: [facility] 12-16-2023 09:43-0500 Body weight 58.7 kg Polly Mashable DO Work Phone: [facility] 12-16-2023 09:43-0500 Diastolic blood pressure 62 mm[Hg] Polly Mashable DO Work Phone: [facility] 12-16-2023 09:43-0500 Heart rate 94 /min Polly Falls DO Work Phone: [facility] 12-16-2023 09:43-0500 Systolic blood pressure 97 mm[Hg] Polly Falls DO Work Phone: [facility] 09-11-2023 10:27-0400 Body mass index (BMI) [Ratio] 21.1 kg/m2 Polly Falls DO Work Phone: [facility] 09-11-2023 10:27-0400 Body weight 64.82 kg Polly Falls DO Work Phone: [facility] 09-11-2023 10:27-0400 Diastolic blood pressure 59 mm[Hg] Polly Falls DO Work Phone: [facility] 09-11-2023 10:27-0400 Heart rate 109 /min Polly Falls DO Work Phone: [facility] 09-11-2023 10:27-0400 Systolic blood pressure 94 mm[Hg] Polly Falls DO Work Phone: [facility] 07-30-2023 08:00-0400 Body height 175.3 cm Polly Falls DO Work Phone: [facility] 07-30-2023 08:00-0400 Body mass index (BMI) [Ratio] 20.38 kg/m2 Polly Falls DO Work Phone: [facility] 07-30-2023 08:00-0400 Body weight 62.6 kg Polly Falls DO Work Phone: [facility] 07-30-2023 08:00-0400 Diastolic blood pressure 78 mm[Hg] Polly Falls DO Work Phone: [facility] 07-30-2023 08:00-0400 Heart rate 67 /min Polly Falls DO Work Phone: [facility] 07-30-2023 08:00-0400 Systolic blood pressure 113 mm[Hg] Polly Falls DO Work Phone: [facility] 11-06-2022 11:43-0500 Body temperature 97.9 [degF] Ana Pendlebury WATER TAXI BOAT MATE.DIRECTOR OF AVIATION Work Phone: [facility] 11-06-2022 11:43-0500 Body weight 58.79 kg Ana Pendlebury WATER TAXI BOAT MATE.DIRECTOR OF AVIATION Work Phone: [facility] 11-06-2022 11:43-0500 Diastolic blood pressure 64 mm[Hg] Ana Pendlebury WATER TAXI BOAT MATE.DIRECTOR OF AVIATION Work Phone: [facility] 11-06-2022 11:43-0500 Heart rate 84 /min Ana Pendlebury WATER TAXI BOAT MATE.DIRECTOR OF AVIATION Work Phone: [facility] 11-06-2022 11:43-0500 Respiratory rate 18 /min Ana Pendlebury WATER TAXI BOAT MATE.DIRECTOR OF AVIATION Work Phone: [facility] 11-06-2022 11:43-0500 SaO2% (BldA) [Mass fraction] 95 % Ana Pendlebury WATER TAXI BOAT MATE.DIRECTOR OF AVIATION Work Phone: [facility] 11-06-2022 11:43-0500 Systolic blood pressure 102 mm[Hg] Ana Pendlebury WATER TAXI BOAT MATE.DIRECTOR OF AVIATION Work Phone: [facility] 03-04-2022 11:13-0400 Body temperature 98.6 [degF] Ana Pendlebury WATER TAXI BOAT MATE.DIRECTOR OF AVIATION Work Phone: [facility] 03-04-2022 11:13-0400 Body weight 62.87 kg Ana Pendlebury WATER [employer]AX[employer] BOAT MATE.DIRECTOR OF AVIATION Work Phone: [facility] 03-04-2022 11:13-0400 Diastolic blood pressure 74 mm[Hg] Ana Pendlebury WATER TAXI BOAT MATE.DIRECTOR OF AVIATION Work Phone: [facility] 03-04-2022 11:13-0400 Heart rate 77 /min Ana Pendlebury WATER TAXI BOAT MATE.DIRECTOR OF AVIATION Work Phone: [facility] 03-04-2022 11:13-0400 Respiratory rate 18 /min Ana Pendlebury WATER TAXI BOAT MATE.DIRECTOR OF AVIATION Work Phone: [facility] 03-04-2022 11:13-0400 Systolic blood pressure 102 mm[Hg] Ana Powell WATER TAXI BOAT MATE.DIRECTOR OF AVIATION Work Phone: [facility] Encounters Encounter Date Encounter Type Care Provider Facility Start: 12-16-2023 End: 12-20-2023 ambulatory JOSSELYN GALINDO [facility] Start: 12-16-2023 End: 12-16-2023 Office outpatient visit 25 minutes Polly Aviles DO Work Phone: [facility] Procedures Date Procedure Procedure Detail Performing Clinician Start: 11-06-2022 COVID WITH FLUA+B, ROUTINE Ana Powell WATER TAXI BOAT MATE.DIRECTOR OF AVIATION Work Phone: Plan of Treatment Date Care Activity Detail Author Start: 2031 Zoster Vaccines (1 of 2) Zoster Vaccines (1 of 2) [facility] Start: 05-17-2024 End: 05-17-2024 Patient encounter procedure 05/17/2024 10:15 AM EDT Office Visit [facility] [address] [place] [address] [place] [address] Polly Aviles DO [address] [place] [address] [facility] Start: 11-26-2023 End: 11-26-2023 Patient encounter procedure 11/26/2023 10:30 AM EST Office Visit [facility] [address] [place] [address] [place] [address] Polly Aviles DO [address] [place] [address] [facility] Start: 08-13-2023 End: 08-13-2023 Patient encounter procedure 08/13/2023 10:00 AM EDT Office Visit [facility] [address] [place] [address] [place] [phone] Polly Aviles DO [address] [place] [address] [place] [address] [facility] Start: 07-17-2023 Influenza vaccination [facility] Start: 07-17-2022 Influenza vaccination [facility] Start: 11-16-2021 DEPRESSION ASSESSMENT DEPRESSION ASSESSMENT [facility] Start: 2016 LIPID SCREEN LIPID SCREEN [facility] Start: 2000 DTaP/Tdap/Td Vaccines (1 - Tdap) DTaP/Tdap/Td Vaccines (1 - Tdap) [facility] Start: 2000 Hepatitis A Vaccines (1 of 2 - Risk 2-dose series) Hepatitis A Vaccines (1 of 2 - Risk 2-dose series) [facility] Start: 2000 Urine microalbumin profile DTAP,TDAP,TD (1 - Tdap) [facility] Start: 1999 HEPATITIS C SCREENING HEPATITIS C SCREENING [facility] Start: 1999 Hepatitis C screening Hepatitis C Screening [facility] Start: 1999 HIV SCREENING HIV SCREENING [facility] Start: 1996 HIV screening HIV Screening [facility] Start: 1993 Adult depression screening assessment [facility] Start: 1987 PNEUMOCOCCAL (1 - PCV) PNEUMOCOCCAL (1 - PCV) [facility] Start: 1987 Pneumococcal Vaccine: Ped or At-Risk (1 - PCV) Pneumococcal Vaccine: Ped or At-Risk (1 - PCV) [facility] Start: 1987 Pneumococcal Vaccine: Ped or At-Risk (1 of 2 - PCV) Pneumococcal Vaccine: Ped or At-Risk (1 of 2 - PCV) [facility] Start: 1987 Pneumococcal Vaccine: Pediatrics (0 to 5 Years) and At-Risk Patients (6 to 64 Years) (1 - PCV) Pneumococcal Vaccine: Pediatrics (0 to 5 Years) and At-Risk Patients (6 to 64 Years) (1 - PCV) [facility] Start: 1986 COVID-19 Vaccine (#1) COVID-19 Vaccine (#1) [facility] Start: 1986 COVID-19 VACCINE (1) COVID-19 VACCINE (1) [facility] Start: 1984 History and physical examination, annual for health maintenance Wellness Visit [facility] Start: 1982 MMR Vaccines (1 of 1 - Standard series) MMR Vaccines (1 of 1 - Standard series) [facility] Start: 1982 Varicella vaccination Varicella Vaccines (1 of 2 - 2-dose childhood series) [facility] Start: 1981 COVID-19 VACCINE (#1) COVID-19 VACCINE (#1) [facility] Start: 1981 HEPATITIS B (1 of 3 - 3-dose series) HEPATITIS B (1 of 3 - 3-dose series) [facility] Start: 1981 Hepatitis B Vaccines (1 of 3 - 3-dose series) Hepatitis B Vaccines (1 of 3 - 3-dose series) [facility] Start: 1981 HIV screening HIV Screening [facility] Start: 1981 Lipid panel Lipid Panel [facility] Start: 1981 Tetanus vaccination Tetanus: Every 10yrs [facility] End: 07-30-2024 Anti-cyclic citrullinated peptide antibody level CCP Antibody Lab Add-On Polyarthralgia 1 Occurrences starting 07/30/2023 until 07/30/2024 [facility] Payers Date Payer Category Payer Medicaid [id number] 2022 Unknown 2022 Unknown [id number] 2021 Medicaid [employer] [id number] 2021-Present [phone] [address] [place] [address] Medicaid [id number] 2021 Medicaid [id number] 2021 Medicaid [id number] 1981 Unknown [id number] 1981 Unknown [id number] 1981 Unknown [id number] [id number] 1981 Unknown [id number] [id number] 1981 Unknown [id number] [id number] 1981 Unknown [id number] [id number] 1981 Unknown [id number] [id number] 1981 Unknown [id number] [id number] 1981 Unknown [id number] [id number] 1981 Unknown [id number] 2.16.840.1.259497.3.579.2. 1981 Unknown [id number] [id number] 1981 Unknown [id number] [id number] 1981 Unknown [id number] Social History Date Type Detail Facility Start: 11-06-2022 End: 07-30-2023 Tobacco smoking status AZIS Smokes tobacco daily [facility] Work Phone: History of tobacco use Cigarette Smoker C [facility] Work Phone: Start: 04-12-2018 End: 03-04-2022 Alcohol intake Current non-drinker of alcohol (finding) [facility] Start: 05-29-2015 History SDOH Alcohol Comment past alcohol use [facility] Start: 1980 Sex Assigned At Not on file [facility] Start: 02-22-2022 End: 03-04-2022 Exposure to SARS-CoV-2 (event) Not sure [facility] Start: 11-06-2022 End: 09-11-2023 Cigarettes smoked current (pack per day) - Reported 1 [facility] Start: 11-06-2022 End: 07-30-2023 Tobacco use and exposure Smokeless tobacco non-user [facility] Start: 07-30-2023 End: 09-11-2023 Gender identity Not on file [facility] Medical Equipment Procedure Code Equipment Code Equipment [...] Name: Jose Mcnamara : 1980 Medical Record: [id number] PCP: Josselyn Galindo MD Referring provider: CHIEF [...] a second opinion from another GI in [place] to determine if anything additional can be [...] with any questions or concerns. Polly Aviles, [facility] Rheumatology [address] [place] [address] O: [phone] F: [phone] The above recommendations were discussed with the [...] Portions of this note were created with [employer]. Every effort was made to [...] (RR 0-0.9). Remaining comprehensive panel normal. Studies [facility] with negative RF/CCP and repeat Sjogren [...] scarring. Prior rheumatology medications Azathioprine-prescribed by Dr. Gowdin, but patient reports this was recently stopped. 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 8.5 documented in this encounter [facility] 09-11-2023 History of Present illness Narrative Images from the original note were not included. RHEUMATOLOGY FOLLOW-UP VISIT Patient Name: Jose Mcnamara : 1980 Medical Record: [id number] PCP: Josselyn Galindo MD Referring provider: CHIEF [...] with any questions or concerns. Polly Aviles, [facility]umat[facility] [address] [place] [address] O: [phone] F: [phone] The above recommendations were discussed with the [...] Portions of this note were created with [employer]. Every effort was made to [...] (RR 0-0.9). Remaining comprehensive panel normal. Studies [facility] with negative RF/CCP and repeat Sjogren [...] stopped. 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 8.0 documented in this encounter [facility] 08-12-2023 History of Present illness Narrative Per Castro [place], CT's do not require a prior auth. REF# [id number]. documented in this encounter [facility] 07-30-2023 Instructions Polly Aviles DO - 07/30/2023 9:09 AM EDT Call [phone] to schedule swallow study Labs and xrays today Try sugar free lemon drops and biotene mouth wash for dry mouth/swallowing problems See you back in 2 weeks documented in this encounter [facility] 09-14-2023 History of Present illness Narrative Images from the original note were not included. RHEUMATOLOGY NEW PATIENT VISIT Patient Name: Jose Mcnamara : 1980 Medical Record: [id number] PCP: Ynes Ovalles MD Referring provider: Ynes [...] disease Follows with Dr. Godwin (GI) in [place]. Currently on azathioprine, budesonide, and lubiprostone. Continues [...] any questions or concerns. Pollyshanelle Aviles DO [facility]ology [address] [place] [address] O: [phone] F: [phone] The above recommendations were discussed with the patient who understands and agrees with the plan. Portions of this note were created with [employer]. Every effort was made to [...] then worse. Is scheduled to see his mainframe programmer analyst Dr. Godwin in about a month. 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 documented in this encounter [facility] 06-16-2023 Note Closed referral per Manuela declining appt for pt. See previous note [facility] 06-16-2023 Telephone encounter Note Closed referral per Manuela declining appt for pt. See previous note [facility] 06-16-2023 Miscellaneous Notes Closed referral per Manuela declining appt for pt. See previous note Manuela is calling back in for an update. She was advised the office is scheduling into next year and is no longer needing to schedule the patient. Name of caller: Manuela Contact phone number: [phone] Relationship to Patient: Gracy manager investigations Provider: Dr. Archibald Practice[place] [facility] Chief Complaint/Reason for Call: Manuela states [...] their call: No documented in this encounter [facility] 06-15-2023 Telephone encounter Note Manuela is calling back in for an update. She was advised the office is scheduling into next year and is no longer needing to schedule the patient. [facility] 06-15-2023 Miscellaneous Notes Manueal is calling back in for an update. She was advised the office is scheduling into next year and is no longer needing to schedule the patient. Name of caller: Manuela Contact phone number: [phone] Relationship to Patient: Gracy manager investigations Provider: Dr. Archibald Practice: [facility] Chief Complaint/Reason for Call: Manuela states that she would like to receive a cb to discuss if the providers are accepting [place] and when the soonest appt would be. Pt has a ref in chart for sjogrens w/ organ involvement. Please advise. Best time of day caller can be reached: Any Patient advised that office/PCP has 24-48 business hours to return their call: No documented in this encounter [facility] 06-11-2023 Telephone encounter Note Name of caller: Manuela Contact phone number: [phone] Relationship to Patient: Gracy manager investigations Provider: Dr. Archibald Practice: [facility] Chief Complaint/Reason for Call: Manuela states that she would like to receive a cb to discuss if the providers are accepting [place] and when the soonest appt would be. Pt has a ref in chart for sjogrens w/ organ involvement. Please advise. Best time of day caller can be reached: Any Patient advised that office/PCP has 24-48 business hours to return their call: No [facility] 07-27-2023 Miscellaneous Notes Name of caller: Manuela Contact phone number: [phone] Relationship to Patient: Gracy manager investigations Provider: Dr. Archibald Practice: [facility] Chief Complaint/Reason for Call: Manuela states [...] their call: No documented in this encounter [facility] 11-07-2022 Miscellaneous Notes Phone call placed patient advised (see prior provider encounter) Patient verbalized understanding, agreed with plan of care. Leonora Coe LPN Please call and let patient know he did test positive for influenza A. Continue xwzp-fem-[id number] medications as needed for cough and congestion. If not improving over the next 3 to 5 days follow-up with PCP. documented in this encounter [facility] 11-06-2022 Influenza virus A and B RNA and SARS-CoV-2 (COVID-19) N gene panel MEME+probe (Resp) COVID 19 RESULT: SARS-CoV-2 (Agent of COVID-19) Not Detected by RT-PCR or equivalent method. fredis [id number]_Ndhuz [employer] ([place])_EUA This test was developed and its performance characteristics determined by [facility]'s [facility] [place]. This test has been authorized by FDA under an Emergency Use Authorization (EUA). This test has been validated in accordance with the FDA's Guidance Document Policy for Diagnostics Testing in Laboratories Certified to Perform High Complexity Testing under CLIA prior to Emergency use Authorization for Coronavirus Disease 2019 during the Public Health Emergency issued on January 14, 2020. Test performed by [facility], [facility] [place], [address] [place], [place] [address]. INFLUENZA A PCR: Positive for Influenza A by RT-PCR INFLUENZA B PCR: Negative for Influenza B by RT-PCR [facility] Diagnosis Viral illness- Primary Unspecified viral infection, in conditions classified elsewhere and of unspecified site [facility] Diagnosis Sjogren's syndrome, with unspecified [...] joint, multiple sites [facility] Diagnosis Sjogren's syndrome, with unspecified [...] joint, multiple sites [facility] Diagnosis Sjogren's syndrome with keratoconjunctivitis sicca [...] FoundDocuments on File Type Date Recorded Patient 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 Expl anation Advance Directive(s) 02/14/2021 8:36 AM [...] Modifed Barium Swallow Polly Aviles, DO [address] [place] [address] Referral ID Status Reason Start Date Expiration Date V isits Requested Visits Authorized [id number] Pending Review 07/30/2023 07/29/2024 1 1 Specialty Diagnoses / Procedures Referred By Biancaac t Referred To Contact Pulmonary Disease Diagnoses Polyarthralgia Polly Aviles DO [address] [place] [address] [address] Phone: [phone] Referral ID Status Reason Start Date Expiration Date Visits Requested Visits Authorized [id number] Closed Patient Preference 09/11/2023 09/10/2024 1 1 Specialty Diagnoses / Procedures Referred By Contac t Referred To Contact Gastroenterology Diagnoses Crohn's disease of colon with complication (HCC) Celiac disease Polly Aviles DO [address] [place] [address] Mal Brian MD [address] [place] [address] Referral ID Status Reason Start Date Expiration Date V isits Requested Visits Authorized [id number] Closed Specialty Services Required/Marisa ent's Best Interest 12/16/2023 12/15/2024 1 1 Additional Source Comments (unrecognized sect ion and content) No Status Records FoundNo Status Records FoundNo Status Records FoundNo Status Records FoundNo Status Records FoundNo Status Records FoundNo Status Records FoundNo Status Records Found INFORMATION SOURCE (unrecogn ized section and content) DATE CREATED AUTHOR AUTHOR'S ORGANIZ ATION 06/03/2021 [facility] DATE CREATED AUTHOR AUTHOR'S ORGANIZ ATION 10/01/2022 [facility] DATE CREATED AUTHOR AUTHOR'S ORGANIZ ATION 11/09/2022 [facility] DATE CREATED AUTHOR AUTHOR'S ORGANIZ ATION 06/17/2023 [facility] DATE CREATED AUTHOR AUTHOR'S ORGANIZ ATION 12/18/2023 [facility] DATE CREATED AUTHOR AUTHOR'S ORGANIZ ATION 12/20/2023 [facility] Source Comments (unrecognize d section and content) In the event this informatio n is protected by the Federal Confidentiality of Alcohol and Drug Abuse Patient Records regulations: The Federal rules restrict any use of the information to criminally investigate or prosecute any alcohol or drug abuse patient.[facility] the event this information is protected by the Federal Confidentiality of Alcohol and Drug Abuse Patient Records regulations: The Federal rules restrict any use of the information to criminally investigate or prosecute any alcohol or drug abuse patient.[facility] the event this information is protected by the Federal Confidentiality of Alcohol and Drug Abuse Patient Records regulations: The Federal rules restrict any use of the information to criminally investigate or prosecute any alcohol or drug abuse patient.[facility] the event this information is protected by the Federal Confidentiality of Alcohol and Drug Abuse Patient Records regulations: The Federal rules restrict any use of the information to criminally investigate or prosecute any alcohol or drug abuse patient.[facility] Reason for Visit (unrecogniz ed section and content) Reason Comments Results Reason Comments Cough Cough, congestion, w heezing, bodyaches and ROMANO x 2 days-exposed to COVID Reason Onset Date Comments Advice Only 06/11/2023 Reason Comments Consult Sjogrens syndrome Specialty Diagnoses / Procedures Referred By Contac t Referred To Contact Rheumatology Diagnoses Sjogren's syndrome, with unspecified organ involvement ([facility]) Ynes Ovalles MD [address] [facility] [place] [address] Polly Aviles DO [address] [place] [address] Referral ID Status Reason Start Date Expiration Date Visits Re quested Visits Authorized [id number] Closed 07/14/2023 07/13/2024 1 1 Care Teams (unrecognized sec tion and content) Machines Technician Relationship Specialty Start Date End Date Lou Nunez, DIRECTOR OF AVIATION [address] [facility] [place] [address] PCP - General Internal Medicine 05/24/21 Ольга Jane [address] [facility] [place] [address] Referring Infectious Diseases 05/22/21 Machines Technician Relationship Specialty Start Date End Date Lou Nunez DIRECTOR OF AVIATION [address] [facility] [place] [address] PCP - General Internal Medicine 05/24/21 Ольга Jane MD Referring Infectious Diseases 05/22/21 Machines Technician Relationship Specialty Start Date End Date Lou Nunez, JACKIE [address] [facility] [place] [address] PCP - General Internal Medicine 05/24/21 Ольга Jane MD Referring Infectious Diseases 05/22/21 Machines Technician Relationship Specialty Start Date End Date Ynes Ovalles MD [address] [place] [address] [place] [address] PCP - General Internal Medicine 07/14/23 KENY GODWIN Primary Care Physician 07/14/23 Machines Technician Relationship Specialty Start Date End Date Ynes Ovalles MD [address] [place] [address] [place] [address] PCP - General Internal Medicine 07/14/23 KENY GODWIN Primary Care Physician 07/14/23 Machines Technician Relationship Specialty Start Date End Date Ynes Ovalles MD [address] [place] [address] [place] [address] PCP - General Internal Medicine 07/14/23 KENY GODWIN Primary Care Physician 07/14/23 Machines Technician Relationship Specialty Start Date End Date Ynes Ovalles MD [address] [place], [place] [id number] PCP - General Internal Medicine 07/14/23 09/12/23 KENY GODWIN Primary Care Physician 07/14/23 Machines Technician Relationship Specialty Start Date End Date Josselyn Galindo MD [address] [place], [place] [id number] PCP - General Internal Medicine 09/13/23 KENY [...] BE BASED ON THE PRIMARY CLINICAL RECORDS. [facility]. provides no warranty or guarantee of the accuracy or completeness of information in this document.
== END | disposition home or self-care (01) ==
LOC: US 07:12
PROVIDERS: PCP Internal Medicine; Referring Provider Internal Medicine Gastroenterology; Visit Provider Internal Medicine Gastroenterology
DX: R10.9 Unspecified abdominal pain (principal)
CPT/HCPCS: 76705; 78227; A9537; J2805

== ENCOUNTER → 2024-01-07 | Outpatient (CLI) | payer BC, MEDICAID, SELFPAY ==
--- OUTSIDE RECORDS SUMMARY | 2024-01-07 09:38 | XMS RPT_ITS | CCD ---
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 Name Role Phone LosEvaristo Unavailable Unavailable PROVIDER, UNKNOWN Unavailable Unavailable No, PCP Unavailable Unavailable SignsОльга J Unavailable Nunez JACKIE, Lou K Primary Care Provider TRENT MCCAIN Attending Unavailable TRENT MCCAIN Referring Unavailable Signs Ольга TINOCO Unavailable Nunez JACKIE, Lou Cohen Primary Care Provider LOU NUNEZ Primary Care Unavailable ANA POWELL Referring Unavailable CASE NUNEZI Noel Primary Care Unavailable LOU HAMMER Referring Unavailable CASE NUNEZI K Primary Care Unavailable CASE NUNEZI K Primary Care Unavailable Unavailable Primary Care Provider UnavailYnes Kuhn MD Primary Care Provider [phone] Ynes Ovalles MD Primary Care Provider Josselyn Galindo MD Primary Care Provider JOSSELYN GALINDO Primary Care Unavailable FALLS, POLLY SORENSON Attending Unavailabl e YNES OVALLES Primary Care Unavailable FALLS, POLLYIris SORENSON Referring Unavailabl e YNES OVALLES Primary Care Unavailable FALLS, POLLY DELTA Referring Unavailabl e FALLS, POLLYIris SORENSON Attending Unavailabl e FALLS, POLLYIris SORENSON Referring Unavailabl e YNES OVALLES Primary Care Unavailable FALLS, POLLYIris SORENSON Attending Unavailabl e FALLS, POLLY DELTA Referring Unavailabl e FALLS, POLLYIris SORENSON Admitting YNES Steven Primary Care Unavailable YNES OVALLES Primary Care Unavailable YNES OVALLES Referring Unavailable FALLS, POLLY SORENSON Attending UnavailYNES Kuhn Primary Care Unavailable FALLS, POLLY SORENSON Attending UnavailJOSSELYN Andrade Primary Care Unavailable FALLS, POLLY SORENSON Attending UnavailYNES Kuhn Primary Care Unavailable FALLS, POLLY SORENSON Attending UnavailYNES Kuhn Primary Care Unavailable FALLS, POLLY SORENSON Attending UnavailJOSSELYN Andrade Primary Care Unavailable Allergies Allergy Classification Reported Allergen(s) Allergy Type Date of Onset Reaction(s) Facility (5 sources) Penicillins; Translations: [PENICILLINS] Drug Intolerance 5 Intolerance [facility] (7 sources) Penicillins Drug Intolerance 5 Intolerance, Unknown, Rash [facility] Medications Current Medications Medication Drug Class(es) Dates [...] mass index (BMI) [Ratio] 19.11 kg/m2 Polly Antengo DO Work Phone: [facility] 12-16-2023 09:43-0500 Body weight 58.7 kg Polly Antengo DO Work Phone: [facility] 12-16-2023 09:43-0500 Diastolic blood pressure 62 mm[Hg] Polly Antengo DO Work Phone: [facility] 12-16-2023 09:43-0500 Heart rate 94 /min Polly Falls DO Work Phone: [facility] 12-16-2023 09:43-0500 Systolic blood pressure 97 mm[Hg] Polly Falls DO Work Phone: [facility] 09-11-2023 10:27-0400 Body mass index (BMI) [Ratio] 21.1 kg/m2 Polly Falls DO Work Phone: [facility] 09-11-2023 10:27-0400 Body weight 64.82 kg Polly Falls DO Work Phone: [facility] 09-11-2023 10:27-0400 Diastolic blood pressure 59 mm[Hg] Polly Falls DO Work Phone: [facility] 09-11-2023 10:27-0400 Heart rate 109 /min Polly Falls DO Work Phone: [facility] 09-11-2023 10:27-0400 Systolic blood pressure 94 mm[Hg] Polly Falls DO Work Phone: [facility] 07-30-2023 08:00-0400 Body height 175.3 cm Polly Falls DO Work Phone: [facility] 07-30-2023 08:00-0400 Body mass index (BMI) [Ratio] 20.38 kg/m2 Polly Falls DO Work Phone: [facility] 07-30-2023 08:00-0400 Body weight 62.6 kg Polly Falls DO Work Phone: [facility] 07-30-2023 08:00-0400 Diastolic blood pressure 78 mm[Hg] Polly Falls DO Work Phone: [facility] 07-30-2023 08:00-0400 Heart rate 67 /min Polly Falls DO Work Phone: [facility] 07-30-2023 08:00-0400 Systolic blood pressure 113 mm[Hg] Polly Falls DO Work Phone: [facility] 11-06-2022 11:43-0500 Body temperature 97.9 [degF] Ana Pendlebury CONFIGURATION SPECIALIST.VP INFORMATICS Work Phone: [facility] 11-06-2022 11:43-0500 Body weight 58.79 kg Ana Pendlebury CONFIGURATION SPECIALIST.VP INFORMATICS Work Phone: [facility] 11-06-2022 11:43-0500 Diastolic blood pressure 64 mm[Hg] Ana Pendlebury CONFIGURATION SPECIALIST.VP INFORMATICS Work Phone: [facility] 11-06-2022 11:43-0500 Heart rate 84 /min Ana Pendlebury CONFIGURATION SPECIALIST.VP INFORMATICS Work Phone: [facility] 11-06-2022 11:43-0500 Respiratory rate 18 /min Ana Pendlebury CONFIGURATION SPECIALIST.VP INFORMATICS Work Phone: [facility] 11-06-2022 11:43-0500 SaO2% (BldA) [Mass fraction] 95 % Ana Pendlebury CONFIGURATION SPECIALIST.VP INFORMATICS Work Phone: [facility] 11-06-2022 11:43-0500 Systolic blood pressure 102 mm[Hg] Ana Pendlebury CONFIGURATION SPECIALIST.VP INFORMATICS Work Phone: [facility] 03-04-2022 11:13-0400 Body temperature 98.6 [degF] Ana Pendlebury CONFIGURATION SPECIALIST.VP INFORMATICS Work Phone: [facility] 03-04-2022 11:13-0400 Body weight 62.87 kg Ana Pendlebury CONFIGURATION SPECIALIST.VP INFORMATICS Work Phone: [facility] 03-04-2022 11:13-0400 Diastolic blood pressure 74 mm[Hg] Ana Pendlebury CONFIGURATION SPECIALIST.VP INFORMATICS Work Phone: [facility] 03-04-2022 11:13-0400 Heart rate 77 /min Ana Pendlebury CONFIGURATION SPECIALIST.VP INFORMATICS Work Phone: [facility] 03-04-2022 11:13-0400 Respiratory rate 18 /min Ana Pendlebury CONFIGURATION SPECIALIST.VP INFORMATICS Work Phone: [facility] 03-04-2022 11:13-0400 Systolic blood pressure 102 mm[Hg] Ana Powell CONFIGURATION SPECIALIST.VP INFORMATICS Work Phone: [facility] Encounters Encounter Date Encounter Type Care Provider Facility Start: 12-22-2023 ambulatory POLLY REINA [facility] Ambulatory Start: 12-16-2023 End: 12-20-2023 ambulatory [facility] Start: 12-16-2023 End: 12-16-2023 Office outpatient visit 25 minutes Polly Reina DO Work Phone: [facility] Orthopedic and Sports Medicine Procedures Date Procedure Procedure Detail Performing Clinician Start: 11-06-2022 COVID WITH FLUA+B, ROUTINE Ana Powell CONFIGURATION SPECIALIST.VP INFORMATICS Work Phone: Plan of Treatment Date Care Activity Detail Author Start: 2031 Zoster Vaccines (1 of 2) Zoster Vaccines (1 of 2) [facility] Start: 05-17-2024 End: 05-17-2024 Patient encounter procedure 05/17/2024 10:15 AM EDT Office Visit [facility] Orthopedic and Sports Medicine [address] [place] [address] [place] [address] Polly Reina DO [address] [place] [address] [facility] Start: 11-26-2023 End: 11-26-2023 Patient encounter procedure 11/26/2023 10:30 AM EST Office Visit [facility] Orthopedic [facility] Medicine [address] [place] [address] [place] [address] Polly Reina DO [address] [place] [address] [facility] Start: 08-13-2023 End: 08-13-2023 Patient encounter procedure 08/13/2023 10:00 AM EDT Office Visit [facility] Orthopedic and Sports Medicine [address] [facility] [place] [address] Stefan, Polly Mane, DO [address] [place] [address] [facility] Orthopedic and Sports [facility] Start: 07-17-2023 Influenza vaccination [facility] Start: 07-17-2022 Influenza vaccination [facility] Start: 11-16-2021 DEPRESSION ASSESSMENT DEPRESSION ASSESSMENT [facility] Start: 2016 LIPID SCREEN LIPID SCREEN [facility] Start: 2000 DTaP/Tdap/Td Vaccines (1 - Tdap) DTaP/Tdap/Td Vaccines (1 - Tdap) [facility] Start: 2000 Hepatitis A Vaccines (1 of 2 - Risk 2-dose series) Hepatitis A Vaccines (1 of 2 - Risk 2-dose series) [facility] Start: 2000 Urine microalbumin profile DTAP,TDAP,TD (1 - Tdap) [facility] Start: 1999 HEPATITIS C SCREENING HEPATITIS C SCREENING [facility] Start: 1999 Hepatitis C screening Hepatitis C Screening [facility] Start: 1999 HIV SCREENING HIV SCREENING [facility] Start: 1996 HIV screening HIV Screening [facility] Start: 1993 Adult depression screening assessment [facility] Start: 1987 PNEUMOCOCCAL (1 - PCV) PNEUMOCOCCAL (1 - PCV) [facility] Start: 1987 Pneumococcal Vaccine: Ped or At-Risk (1 - PCV) Pneumococcal Vaccine: Ped or At-Risk (1 - PCV) [facility] Start: 1987 Pneumococcal Vaccine: Ped or At-Risk (1 of 2 - PCV) Pneumococcal Vaccine: Ped or At-Risk (1 of 2 - PCV) [facility] Start: 1987 Pneumococcal Vaccine: Pediatrics (0 to 5 Years) and At-Risk Patients (6 to 64 Years) (1 - PCV) Pneumococcal Vaccine: Pediatrics (0 to 5 Years) and At-Risk Patients (6 to 64 Years) (1 - PCV) [facility] Start: 1986 COVID-19 Vaccine (#1) COVID-19 Vaccine (#1) [facility] Start: 1986 COVID-19 VACCINE (1) COVID-19 VACCINE (1) [facility] Start: 1984 History and physical examination, annual for health maintenance Wellness Visit [facility] Start: 1982 MMR Vaccines (1 of 1 - Standard series) MMR Vaccines (1 of 1 - Standard series) [facility] Start: 1982 Varicella vaccination Varicella Vaccines (1 of 2 - 2-dose childhood series) [facility] Start: 1981 COVID-19 VACCINE (#1) COVID-19 VACCINE (#1) [facility] Start: 1981 HEPATITIS B (1 of 3 - 3-dose series) HEPATITIS B (1 of 3 - 3-dose series) [facility] Start: 1981 Hepatitis B Vaccines (1 of 3 - 3-dose series) Hepatitis B Vaccines (1 of 3 - 3-dose series) [facility] Start: 1981 HIV screening HIV Screening [facility] Start: 1981 Lipid panel Lipid Panel [facility] Start: 1981 Tetanus vaccination Tetanus: Every 10yrs [facility] End: 07-30-2024 Anti-cyclic citrullinated peptide antibody level CCP Antibody Lab Add-On Polyarthralgia 1 Occurrences starting 07/30/2023 until 07/30/2024 [facility] Payers Date Payer Category Payer Medicaid [id number] 2022 Unknown 2022 Unknown [id number] 2021 Medicaid [employer] [id number] 2021-Present [phone] [address] [place] [address] Medicaid [id number] 2021 Medicaid [id number] 2021 Medicaid [id number] 1981 Unknown [id number] 1981 Unknown [id number] [id number] 1981 Unknown [id number] 2.16.840.1.068951.3.579.2. 1981 Unknown [id number] 2.16.840.1.690587.3.579.2.3 1981 Unknown [id number] [id number]. 1981 Unknown [id number] 2.16.840.1.325258.3.579.2. 1981 Unknown [id number] 2.16.840.1.655609.3.579.2. 1981 Unknown [id number] 2.16.840.1.835477.3.579.2. 1981 Unknown [id number] 2.16.840.1.580780.3.579.2. 1981 Unknown [id number] 2.16.840.1.560004.3.579.2. 1981 Unknown [id number] 2.16.840.1.653562.3.579.2. 1981 Unknown [id number] [id number] 1981 Unknown [id number] [id number]. 1981 Unknown [id number] [id number] Social History Date Type Detail Facility Start: 11-06-2022 End: 07-30-2023 Tobacco smoking status NHIS Smokes tobacco daily [facility] Work Phone: History of tobacco use Cigarette Smoker [facility] Work Phone: Start: 04-12-2018 End: 03-04-2022 Alcohol intake Current non-drinker of alcohol (finding) [facility] Start: 05-29-2015 History SDOH Alcohol Comment past alcohol use [facility] Start: 1980 Sex Assigned At Not on file [facility] Start: 02-22-2022 End: 03-04-2022 Exposure to SARS-CoV-2 (event) Not sure [facility] Start: 11-06-2022 End: 09-11-2023 Cigarettes smoked current (pack per day) - Reported 1 [facility] Start: 11-06-2022 End: 07-30-2023 Tobacco use and exposure Smokeless tobacco non-user [facility] Start: 07-30-2023 End: 09-11-2023 Gender identity Not on file [employer] [facility] [employer] Procedure Code Equipment Code Equipment Origin al Text Equipment Identifier Dates Bard [employer]dmax Mesh [id number] Start: 07-19-2019 Clinical Notes 03-04-2022 to 12-16-2023 Polly Reina, - 12/16/2023 10:10 AM Lilibeth Mills LPN - 12/16/2023 9:44 AM Polly Pop, - 09/11/2023 10:30 AM Lilibeth Potter LPN - 09/11/2023 10:27 AM EDT Note Date & Type Note Facility 12-16-2023 History of Present illness Narrative Images from the original note were not included. RHEUMATOLOGY FOLLOW-UP VISIT Patient Name: Jose Mcnamara : 1980 Medical Record: [id number] PCP: Josselyn Galindo MD Referring provider: CHIEF [...] a second opinion from another GI in [place] to determine if anything additional can be [...] me with any questions or concerns. Polly Reina DO [facility] Rheumatology [address] [place] [address] O: [phone] F: [phone] The above recommendations were discussed with the [...] Portions of this note were created with Dragon Dictation Software. Every effort was made to [...] (RR 0-0.9). Remaining comprehensive panel normal. Studies [facility] with negative RF/CCP and repeat Sjogren [...] stopped. 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 8.5 documented in this encounter [facility] 09-11-2023 History of Present illness Narrative Images from the original note were not included. RHEUMATOLOGY FOLLOW-UP VISIT Patient Name: Jose Mcnamara : 1980 Medical Record: [id number] PCP: Josselyn Galindo MD Referring provider: CHIEF [...] Crohn's disease Celiac I spoke with Dr. Godiwn's office in July. Underlying diagnosis of Crohn's [...] me with any questions or concerns. Polly Reina DO [facility] Rheumatology [address] [place] [address] O: [phone] F: [phone] The above recommendations were discussed with the [...] Portions of this note were created with [employer] D[employer]. Every effort was made to [...] (RR 0-0.9). Remaining comprehensive panel normal. Studies [facility] with negative RF/CCP and repeat Sjogren [...] stopped. 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 8.0 documented in this encounter [facility] 08-12-2023 History of Present illness Narrative Per Castro Conde with [facility], CT's do not require a prior auth. REF# [id number]. documented in this encounter [facility] 07-30-2023 Instructions Polly Reina DO - 07/30/2023 9:09 AM EDT Call [phone] to schedule swallow study Labs and xrays today Try sugar free lemon drops and biotene mouth wash for dry mouth/swallowing problems See you back in 2 weeks documented in this encounter [facility] 07-30-2023 History of Present illness Narrative Images from the original note were not included. RHEUMATOLOGY NEW PATIENT VISIT Patient Name: Jose Mcnamara : 1980 Medical Record: [id number] PCP: Ynes Ovalles MD Referring provider: Ynes [...] disease Follows with Dr. Godwin (GI) in [place]. Currently on azathioprine, budesonide, and lubiprostone. Continues [...] me with any questions or concerns. Polly Reina DO [facility] Rheumatology [address] [place] [address] O: [phone] F: [phone] The above recommendations were discussed with the patient who understands and agrees with the plan. Portions of this note were created with [employer]. Every effort was made to [...] then worse. Is scheduled to see his natural gas technician Dr. Godwin in about a month. 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 documented in this encounter [facility] 06-16-2023 Note Closed referral per Manuela declining appt for pt. See previous note [facility] 06-16-2023 Telephone encounter Note Closed referral per Manuela declining appt for pt. See previous note [facility] 06-16-2023 Miscellaneous Notes Closed referral per Manuela declining appt for pt. See previous note Manuela is calling back in for an update. She was advised the office is scheduling into next year and is no longer needing to schedule the patient. 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 Archibald Practice: [facility] Rheumatology Chief Complaint/Reason for Call: Manuela states that she would like to receive a cb to discuss if the providers are accepting [place] and when the soonest appt would be. Pt has a ref in chart for sjogrens w/ organ involvement. Please advise. Best time of day caller can be reached: Any Patient advised that office/PCP has 24-48 business hours to return their call: No documented in this encounter [facility] 06-15-2023 Telephone encounter Note Manuela is calling back in for an update. She was advised the office is scheduling into next year and is no longer needing to schedule the patient. [facility] 06-15-2023 Miscellaneous Notes Manuela is calling back in for an update. She was advised the office is scheduling into next year and is no longer needing to schedule the patient. 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 Archibald Practice: [facility] Rheumatology Chief Complaint/Reason for Call: Manuela states that she would like to receive a cb to discuss if the providers are accepting [place] and when the soonest appt would be. Pt has a ref in chart for sjogrens w/ organ involvement. Please advise. 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 Archibald Practice: [facility] Rheumatology Chief Complaint/Reason for Call: Manuela states that she would like to receive a cb to discuss if the providers are accepting [place] and when the soonest appt would be. Pt has a ref in chart for sjogrens w/ organ involvement. Please advise. 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 Archibald Practice: [facility] Rheumatology Chief Complaint/Reason for Call: Manuela states [...] their call: No documented in this encounter [facility] 11-07-2022 Miscellaneous Notes Phone call placed patient advised (see prior provider encounter) Patient verbalized understanding, agreed with plan of care. Leonora Coe LPN Please call and let patient know he did test positive for influenza A. Continue [id number] medications as needed for cough and congestion. If not improving over the next 3 to 5 days follow-up with PCP. documented in this encounter [facility] 11-06-2022 Influenza virus A and B RNA and SARS-CoV-2 (COVID-19) N gene panel MEME+probe (Resp) COVID 19 RESULT: SARS-CoV-2 (Agent of COVID-19) Not Detected by RT-PCR or equivalent method. fredis [id number] [employer] ([place])_EUA This test was developed and its performance characteristics determined by [facility]'s [facility] [place]. This test has been authorized by FDA under an Emergency Use Authorization (EUA). This test has been validated in accordance with the FDA's Guidance Document Policy for Diagnostics Testing in Laboratories Certified to Perform High Complexity Testing under CLIA prior to Emergency use Authorization for Coronavirus Disease 2019 during the Public Health Emergency issued on January 14, 2020. Test performed by [facility], [facility] [place], [address] [address]. INFLUENZA A PCR: Positive for Influenza A by RT-PCR INFLUENZA B PCR: Negative for Influenza B by RT-PCR [facility] Viral illness- Primary Unspecified viral infection, in conditions classified elsewhere and of unspecified site [facility] Diagnosis Sjogren's syndrome, with unspecified organ [...] joint, multiple sites [facility] Diagnosis Sjogren's syndrome, with unspecified organ [...] joint, multiple sites [facility] Diagnosis Sjogren's syndrome with keratoconjunctivitis sicca (HCC)- Primary Polyarthralgia Pain in joint, multiple sites Celiac disease Encounter for screening for other viral diseases Crohn's disease of colon with complication (HCC) Abnormal CT of the chest Nonspecific (abnormal) findings on radiological and other examination of other intrathoracic organs [facility] Diagnosis Polyarthralgia- Primary Pain in joint, multiple sites Crohn's disease of colon with complication (HCC) Celiac disease Smoking history Sicca, unspecified type (HCC) Dysphagia, unspecified type documented in this encounter [facility] Summary Purpose Family History No Family History Records FoundNo Family History Records FoundNo Family History Records FoundNo Family History Records FoundNo Family History Records FoundNo Family History Records FoundNo Family History Records FoundNo Family History Records Found Advance Directives No Advanced Directives Records FoundDocuments on File Type Date Recorded 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 Advance Directive(s) 02/14/2021 8:36 AM Advance Directive(s) 07/19/2019 11:02 AM Health Concerns Infection Onset Date Last Indicated Resolved Time COVID-19 Rule-Out 11/06/2022 11/06/2022 11/07/2022 4:14 AM EST Reason for Referral Specialty Diagnoses / Procedures Referred By Elvin quiñones Referred To Contact Radiology Diagnoses Sjogren's syndrome, with unspecified organ involvement (HCC) Dysphagia, unspecified type Procedures XR Modifed Barium Swallow Polly Reina DO [address] [place] [address] Referral ID Status Reason Start Date Expiration Date V isits Requested Visits Authorized [id number] Pending Review 07/30/2023 07/29/2024 1 1 Specialty Diagnoses / Procedures Referred By Elvin quiñones Referred To Contact Pulmonary Disease Diagnoses Polyarthralgia Polly Reina DO [address] [place] [address] [facility] [address] [place] [id number] Phone: [phone] Referral ID Status Reason Start Date Expiration Date Visits Requested Visits Authorized [id number] Closed Patient Preference 09/11/2023 09/10/2024 1 1 Specialty Diagnoses / Procedures Referred By Contcarlos t Referred To Contact Gastroenterology Diagnoses Crohn's disease of colon with complication (HCC) Celiac disease Polly Reina DO [address] [place] [address] Mal Brian MD [address] [place] [address] Referral ID Status Reason Start Date Expiration Date V isits Requested Visits Authorized [id number] Closed Specialty Services Required/Marisa ent's Best Interest 12/16/2023 12/15/2024 1 1 Additional Source Comments (unrecognized sect ion and content) No Status Records FoundNo Status Records FoundNo Status Records FoundNo Status Records FoundNo Status Records FoundNo Status Records FoundNo Status Records FoundNo Status Records Found INFORMATION SOURCE (unrecogn ized section and content) DATE CREATED AUTHOR AUTHOR'S ORGANIZ ATION 06/03/2021 [facility] DATE CREATED AUTHOR AUTHOR'S ORGANIZ ATION 10/01/2022 [facility] DATE CREATED AUTHOR AUTHOR'S ORGANIZ ATION 11/09/2022 [facility] DATE CREATED AUTHOR AUTHOR'S ORGANIZ ATION 06/17/2023 [facility] DATE CREATED AUTHOR [facility]S [facility]IZ AT[facility] DATE CREATED AUTHOR AUTHOR'S ORGANIZ ATION 12/27/2023 [facility] Source Comments (unrecognize d section and content) In the event this informatio n is protected by the Federal Confidentiality of Alcohol and Drug Abuse Patient Records regulations: The Federal rules restrict any use of the information to criminally investigate or prosecute any alcohol or drug abuse patient.[facility] the event this information is protected by the Federal Confidentiality of Alcohol and Drug Abuse Patient Records regulations: The Federal rules restrict any use of the information to criminally investigate or prosecute any alcohol or drug abuse patient.[facility] the event this information is protected by the Federal Confidentiality of Alcohol and Drug Abuse Patient Records regulations: The Federal rules restrict any use of the information to criminally investigate or prosecute any alcohol or drug abuse patient.[facility] the event this information is protected by the Federal Confidentiality of Alcohol and Drug Abuse Patient Records regulations: The Federal rules restrict any use of the information to criminally investigate or prosecute any alcohol or drug abuse patient.[facility] Reason for Visit (unrecogniz ed section and content) Reason Comments Results Reason Comments Cough Cough, congestion, w heezing, bodyaches and ROMANO x 2 days-exposed to COVID Reason Onset Date Comments Advice Only 06/11/2023 Reason Comments Consult Sjogrens syndrome Specialty Diagnoses / Procedures Referred By Contcarlos t Referred To Contact Rheumatology Diagnoses Sjogren's syndrome, with unspecified organ involvement ([facility]) Ynes Ovalles MD [address] [facility] [place] [address] Polly Reina, DO [address] [place] [address] Referral ID Status Reason Start Date Expiration Date Visits Re quested Visits Authorized [id number] Closed 07/14/2023 07/13/2024 1 1 Care Teams (unrecognized sec tion and content) Cnc Laser Operator Relationship Specialty Start Date End Date Lou Nunez, JACKIE [address] [place], [place] [id number] [phone] - General Internal Medicine 05/24/21 Ольга Jane [address] [place] [phone] Referring Infectious Diseases 05/22/21 Cnc Laser Operator Relationship Specialty Start Date End Date Lou Nunez CNP [address] [place], [place] [id number] [phone] PCP - General Internal Medicine 05/24/21 Ольга Jane MD Referring Infectious Diseases 05/22/21 Cnc Laser Operator Relationship Specialty Start Date End Date Lou Nunez CNP [address] [place], [place] [id number] [phone] PCP - General Internal Medicine 05/24/21 Ольга Jane MD Referring Infectious Diseases 05/22/21 Cnc Laser Operator Relationship Specialty Start Date End Date Ynes Ovalles MD [address] [place], [place] [phone] PCP - General Internal Medicine 07/14/23 KENY GODWIN Primary Care Physician 07/14/23 Cnc Laser Operator Relationship Specialty Start Date End Date Ynes Ovalles MD [address] [place], [place] [id number] PCP - General Internal Medicine 07/14/23 KENY GODWIN Primary Care Physician 07/14/23 Cnc Laser Operator Relationship Specialty Start Date End Date Ynes Ovalles MD [address] [place], [place] [id number] PCP - General Internal Medicine 07/14/23 KENY GODWIN Primary Care Physician 07/14/23 Cnc Laser Operator Relationship Specialty Start Date End Date Ynes Ovalles MD [address] [place], [place] [id number] PCP - General Internal Medicine 07/14/23 09/12/23 KENY GODWIN Primary Care Physician 07/14/23 Cnc Laser Operator Relationship Specialty Start Date End Date Josselyn Galindo MD [address] [place] [address] PCP - General Internal Medicine 09/13/23 KENY [...] BE BASED ON THE PRIMARY CLINICAL RECORDS. [employer] [facility]. provides no warranty or guarantee of the accuracy or completeness of information in this document.
== END | disposition home or self-care (01) ==
LOC: LABSPEC 09:12
PROVIDERS: PCP Internal Medicine; Visit Provider Nurse Practitioner
DX: R09.89 Other specified symptoms and signs involving the circulatory and respiratory systems (principal)
CPT/HCPCS: 87631

== ENCOUNTER → 2024-01-11 | Outpatient (CLI) | payer BC, MEDICAID, SELFPAY ==
[2024-01-11 11:23] LABS: Absolute Lymphocyte Count 2.78 X10^3/uL (0.83-4.51); Absolute Neutrophil Count 5.5 X10^3/uL (2.0-7.7); Basophil# 0.04 X10^3/uL; Basophil% 0.4 % (0-1); Eosinophil# 0.17 X10^3/uL; Eosinophils% 1.8 % (0-5); Hematocrit 48.7 % (40-54); Hemoglobin 15.7 g/dL (13.0-16.5); Lymphocyte # 2.78 X10^3/ul (0.83-4.51); Lymphocyte % 29.7 % (19-41); Mean Corp Hgb Conc 32.2 g/dL (32-36); Mean Corpuscular Hgb 27.7 pg (27.0-32.0); Mean Corpuscular Volume 85.9 fL (80-94); Mean Platelet Vol. 10.9 fl (6.2-12.0); Monocyte# 0.79 X10^3/uL; Monocyte% 8.4 % (0-10); NRBC Flagged by Analyzer 0 % (0-5); Neutrophil # 5.54 X10^3/uL (2.7-7.7); Neutrophil % 59.4 % (47-70); Platelet Count 223 K/mm3 (150-450); RBC Distribution Width CV 13.1 % (11.6-14.6); Red Blood Count 5.67 M/mm3 (4.6-6.2); White Blood Count 9.4 K/mm3 (4.4-11.0)
--- OUTSIDE RECORDS SUMMARY | 2024-01-11 11:59 | XMS RPT_ITS | CCD ---
Author Name Unknown Address [address] [place] [address] Organization [facility] Care Team Providers Care Recreation Leader Name Role Phone LosEvaristo Unavailable Unavailable PROVIDER, [...] Provider UnavailYnes Kuhn MD Primary Care Provider [phone] Ynes Ovalles MD Primary Care Provider Josselyn [...] [PENICILLINS] Drug Intolerance 5 Intolerance [facility] (7 sources) Penicillins Drug Intolerance 5 Intolerance, Unknown, Rash [facility] Medications Current Medications Medication Drug Class(es) Dates [...] mass index (BMI) [Ratio] 19.11 kg/m2 Polly Yeeply Mobile DO Work Phone: [facility] 12-16-2023 09:43-0500 Body weight 58.7 kg Polly Yeeply Mobile DO Work Phone: [facility] 12-16-2023 09:43-0500 Diastolic blood pressure 62 mm[Hg] Polly Yeeply Mobile DO Work Phone: [facility] 12-16-2023 09:43-0500 Heart rate 94 /min Polly Falls DO Work Phone: [facility] 12-16-2023 09:43-0500 Systolic blood pressure 97 mm[Hg] Polly Falls DO Work Phone: [facility] 09-11-2023 10:27-0400 Body mass index (BMI) [Ratio] 21.1 kg/m2 Polly Falls DO Work Phone: [facility] 09-11-2023 10:27-0400 Body weight 64.82 kg Polly Falls DO Work Phone: [facility] 09-11-2023 10:27-0400 Diastolic blood pressure 59 mm[Hg] Polly Falls DO Work Phone: [facility] 09-11-2023 10:27-0400 Heart rate 109 /min Polly Falls DO Work Phone: [facility] 09-11-2023 10:27-0400 Systolic blood pressure 94 mm[Hg] Polly Falls DO Work Phone: [facility] 07-30-2023 08:00-0400 Body height 175.3 cm Polly Falls DO Work Phone: [facility] 07-30-2023 08:00-0400 Body mass index (BMI) [Ratio] 20.38 kg/m2 Polly Falls DO Work Phone: [facility] 07-30-2023 08:00-0400 Body weight 62.6 kg Polly Falls DO Work Phone: [facility] 07-30-2023 08:00-0400 Diastolic blood pressure 78 mm[Hg] Polly Falls DO Work Phone: [facility] 07-30-2023 08:00-0400 Heart rate 67 /min Polly Falls DO Work Phone: [facility] 07-30-2023 08:00-0400 Systolic blood pressure 113 mm[Hg] Polly Falls DO Work Phone: [facility] 11-06-2022 11:43-0500 Body temperature 97.9 [degF] Ana Pendlebury [employer] SHUCKER[employer]EMAIL ADMINISTRATOR Work Phone: [facility] 11-06-2022 11:43-0500 Body weight 58.79 kg Ana Pendlebury [employer] SHUCKER.EMAIL ADMINISTRATOR Work Phone: [facility] 11-06-2022 11:43-0500 Diastolic blood pressure 64 mm[Hg] Ana Pendlebury [employer] SHUCKER.EMAIL ADMINISTRATOR Work Phone: [facility] 11-06-2022 11:43-0500 Heart rate 84 /min Ana Pendlebury [employer] SHUCKER.EMAIL ADMINISTRATOR Work Phone: [facility] 11-06-2022 11:43-0500 Respiratory rate 18 /min Ana Pendlebury [employer] SHUCKER.EMAIL ADMINISTRATOR Work Phone: [facility] 11-06-2022 11:43-0500 SaO2% (BldA) [Mass fraction] 95 % Ana Pendlebury [employer] SHUCKER.EMAIL ADMINISTRATOR Work Phone: [facility] 11-06-2022 11:43-0500 Systolic blood pressure 102 mm[Hg] Ana Pendlebury [employer] SHUCKER.EMAIL ADMINISTRATOR Work Phone: [facility] 03-04-2022 11:13-0400 Body temperature 98.6 [degF] Ana Pendlebury [employer] SHUCKER.EMAIL ADMINISTRATOR Work Phone: [facility] 03-04-2022 11:13-0400 Body weight 62.87 kg Ana Pendlebury [employer] SHUCKER.EMAIL ADMINISTRATOR Work Phone: [facility] 03-04-2022 11:13-0400 Diastolic blood pressure 74 mm[Hg] Ana Pendlebury [employer] SHUCKER.EMAIL ADMINISTRATOR Work Phone: [facility] 03-04-2022 11:13-0400 Heart rate 77 /min Ana Pendlebury [employer] SHUCKER.EMAIL ADMINISTRATOR Work Phone: [facility] 03-04-2022 11:13-0400 Respiratory rate 18 /min Ana Pendlebury [employer] SHUCKER.EMAIL ADMINISTRATOR Work Phone: [facility] 03-04-2022 11:13-0400 Systolic blood pressure 102 mm[Hg] Ana Powell [employer]UCKER.EMAIL ADMINISTRATOR Work Phone: [facility] Encounters Encounter Date Encounter Type Care Provider Facility Start: 12-22-2023 ambulatory POLLY REINA [facility] Start: 12-16-2023 End: 12-20-2023 ambulatory [facility] Start: 12-16-2023 End: 12-16-2023 Office outpatient visit 25 minutes Polly Reina DO Work Phone: [facility] Orthopedic and Sports Medicine Procedures Date Procedure Procedure Detail Performing Clinician Start: 11-06-2022 COVID WITH FLUA+B, ROUTINE Ana Powell [employer]ER[employer]EMAIL ADMINISTRATOR Work Phone: Plan of Treatment Date Care Activity Detail Author Start: 2031 Zoster Vaccines (1 of 2) Zoster Vaccines (1 of 2) [facility] Start: 05-17-2024 End: 05-17-2024 Patient encounter procedure 05/17/2024 10:15 AM EDT Office Visit [facility] Orthopedic and Sports Medicine [address] [place] [address] [place] [address] Polly Reina DO [address] [place] [address] [facility] Start: 11-26-2023 End: 11-26-2023 Patient encounter procedure 11/26/2023 10:30 AM EST Office Visit [facility] Orthopedic [facility] Sports Medicine [address] [place] [address] [place] [address] Polly Reina DO [address] [place] [address] [facility]opedic [facility] Start: 08-13-2023 End: 08-13-2023 Patient encounter procedure 08/13/2023 10:00 AM EDT Office Visit [facility] Orthopedic and Sports Medicine [address] [facility] [place] [address] Stefan, Polly Mane, DO [address] [place] [address] [facility] Orthopedic and Sports [facility] Start: 07-17-2023 Influenza vaccination [facility] Start: 07-17-2022 Influenza vaccination [facility] Start: 11-16-2021 DEPRESSION ASSESSMENT DEPRESSION ASSESSMENT [facility] Start: 2016 LIPID SCREEN LIPID SCREEN [facility] Start: 2000 DTaP/Tdap/Td Vaccines (1 - Tdap) DTaP/Tdap/Td Vaccines (1 - Tdap) [facility] Start: 2000 Hepatitis A Vaccines (1 of 2 - Risk 2-dose series) Hepatitis A Vaccines (1 of 2 - Risk 2-dose series) [facility] Start: 2000 Urine microalbumin profile DTAP,TDAP,TD (1 - Tdap) [facility] Start: 1999 HEPATITIS C SCREENING HEPATITIS C SCREENING [facility] Start: 1999 Hepatitis C screening Hepatitis C Screening [facility] Start: 1999 HIV SCREENING HIV SCREENING [facility] Start: 1996 HIV screening HIV Screening [facility] Start: 1993 Adult depression screening assessment [facility] Start: 1987 PNEUMOCOCCAL (1 - PCV) PNEUMOCOCCAL (1 - PCV) [facility] Start: 1987 Pneumococcal Vaccine: Ped or At-Risk (1 - PCV) Pneumococcal Vaccine: Ped or At-Risk (1 - PCV) [facility] Start: 1987 Pneumococcal Vaccine: Ped or At-Risk (1 of 2 - PCV) Pneumococcal Vaccine: Ped or At-Risk (1 of 2 - PCV) [facility] Start: 1987 Pneumococcal Vaccine: Pediatrics (0 to 5 Years) and At-Risk Patients (6 to 64 Years) (1 - PCV) Pneumococcal Vaccine: Pediatrics (0 to 5 Years) and At-Risk Patients (6 to 64 Years) (1 - PCV) [facility] Start: 1986 COVID-19 Vaccine (#1) COVID-19 Vaccine (#1) [facility] Start: 1986 COVID-19 VACCINE (1) COVID-19 VACCINE (1) [facility] Start: 1984 History and physical examination, annual for health maintenance Wellness Visit [facility] Start: 1982 MMR Vaccines (1 of 1 - Standard series) MMR Vaccines (1 of 1 - Standard series) [facility] Start: 1982 Varicella vaccination Varicella Vaccines (1 of 2 - 2-dose childhood series) [facility] Start: 1981 COVID-19 VACCINE (#1) COVID-19 VACCINE (#1) [facility] Start: 1981 HEPATITIS B (1 of 3 - 3-dose series) HEPATITIS B (1 of 3 - 3-dose series) [facility] Start: 1981 Hepatitis B Vaccines (1 of 3 - 3-dose series) Hepatitis B Vaccines (1 of 3 - 3-dose series) [facility] Start: 1981 HIV screening HIV Screening [facility] Start: 1981 Lipid panel Lipid Panel [facility] Start: 1981 Tetanus vaccination Tetanus: Every 10yrs [facility] End: 07-30-2024 Anti-cyclic citrullinated peptide antibody level CCP Antibody Lab Add-On Polyarthralgia 1 Occurrences starting 07/30/2023 until 07/30/2024 [facility] Payers Date Payer Category Payer Medicaid [id number] 2022 Unknown 2022 Unknown [id number] 2021 Medicaid [employer] [id number] 2021-Present [phone] [address] [place] [address] Medicaid [id number] 2021 Medicaid [id number] 2021 Medicaid [id number] 1981 Unknown [id number] 1981 Unknown [id number] [id number] 1981 Unknown [id number] 2.16.840.1.768846.3.579.2. 1981 Unknown [id number] 2.16.840.1.383028.3.579.2.3 1981 Unknown [id number] 2.16.840.1.306165.3.579.2. 1981 Unknown [id number] 2.16.840.1.987710.3.579.2. 1981 Unknown [id number] 2.16.840.1.580507.3.579.2. 1981 Unknown [id number] 2.16.840.1.779933.3.579.2. 1981 Unknown [id number] 2.16.840.1.949930.3.579.2. 1981 Unknown [id number] 2.16.840.1.384974.3.579.2. 1981 Unknown [id number] 2.16.840.1.811242.3.579.2. 1981 Unknown [id number] 2.16.840.1.547513.3.579.2.3 1981 Unknown [id number] 2.16.840.1.192215.3.579.2. 1981 Unknown [id number] [id number] Social History Date Type Detail Facility Start: 11-06-2022 End: 07-30-2023 Tobacco smoking status NHIS Smokes tobacco daily [facility] Work Phone: History of tobacco use Cigarette Smoker C [facility] Work Phone: Start: 04-12-2018 End: 03-04-2022 Alcohol intake Current non-drinker of alcohol (finding) [facility] Start: 05-29-2015 History SDOH Alcohol Comment past alcohol use [facility] Start: 1980 Sex Assigned At Not on file C [facility] Start: 02-22-2022 End: 03-04-2022 Exposure to SARS-CoV-2 (event) Not sure [facility] Start: 11-06-2022 End: 09-11-2023 Cigarettes smoked current (pack per day) - Reported 1 [facility] Start: 11-06-2022 End: 07-30-2023 Tobacco use and exposure Smokeless tobacco non-user [facility] Start: 07-30-2023 End: 09-11-2023 Gender identity Not on file [employer] [facility] Procedure Code Equipment Code Equipment [...] Name: Jose Mcnamara : 1980 Medical Record: [id number] PCP: Josselyn Galindo MD Referring provider: CHIEF [...] a second opinion from another GI in [place] to determine if anything additional can be [...] any questions or concerns. Polly Reina DO [facility] Rheumatology [address] [place] [address] O: [phone] F: [phone] The above recommendations were discussed with the [...] 0-0.9). Remaining comprehensive panel normal. Studies [place] [facility] with negative RF/CCP and repeat Sjogren [...] stopped. 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 8.5 documented in this encounter [facility] 09-11-2023 History of Present illness Narrative Images from the original note were not included. RHEUMATOLOGY FOLLOW-UP VISIT Patient Name: Jose Mcnamara : 1980 Medical Record: [id number] PCP: Josselyn Galindo MD Referring provider: CHIEF [...] any questions or concerns. Polly Reina DO [facility] Rheumatology [address] [place] [address] O: [phone] F: [phone] The above recommendations were discussed with the [...] Portions of this note were created with [employer]. Every effort was made to [...] 0-0.9). Remaining comprehensive panel normal. Studies [facility] [place] [facility] with negative RF/CCP and repeat Sjogren [...] stopped. 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 8.0 documented in this encounter [facility] 08-12-2023 History of Present illness Narrative Per Castro Conde with [facility], CT's do not require a prior auth. REF# [id number]. documented in this encounter [facility] 07-30-2023 Instructions Polly Reina DO - 07/30/2023 9:09 AM EDT Call [phone] to schedule swallow study Labs and xrays today Try sugar free lemon drops and biotene mouth wash for dry mouth/swallowing problems See you back in 2 weeks documented in this encounter [facility] 07-30-2023 History of Present illness Narrative Images from the original note were not included. RHEUMATOLOGY NEW PATIENT VISIT Patient Name: Jose Mcnamara : 1980 Medical Record: [id number] PCP: Ynes Ovalles MD Referring provider: Ynes [...] disease Follows with Dr. [place] (GI) in [place]. Currently on azathioprine, budesonide, and lubiprostone. Continues [...] any questions or concerns. Polly Reina DO [facility] Rheumatology [address] [place] [address] O: [phone] F: [phone] The above recommendations were discussed with the patient who understands and agrees with the plan. Portions of this note were created with [employer]. Every effort was made to [...] then worse. Is scheduled to see his human resources benefits manager Dr. Godwin in about a month. 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 documented in this encounter [facility] 06-16-2023 Note Closed referral per Manuela declining appt for pt. See previous note [facility] 06-16-2023 Telephone encounter Note Closed referral per Manuela declining appt for pt. See previous note [facility] 06-16-2023 Miscellaneous Notes Closed referral per Manuela declining appt for pt. See previous note Manuela is calling back in for an update. She was advised the office is scheduling into next year and is no longer needing to schedule the patient. 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 Archibald [facility] Chief Complaint/Reason for Call: Manuela states that she would like to receive a cb to discuss if the providers are accepting [place] and when the soonest appt would be. Pt has a ref in chart for sjogrens w/ organ involvement. Please advise. Best time of day caller can be reached: Any Patient advised that office/PCP has 24-48 business hours to return their call: No documented in this encounter [facility] 06-15-2023 Telephone encounter Note Manuela is calling back in for an update. She was advised the office is scheduling into next year and is no longer needing to schedule the patient. [facility] 06-15-2023 Miscellaneous Notes Manuela is calling back in for an update. She was advised the office is scheduling into next year and is no longer needing to schedule the patient. 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 Archibald Practice: [facility] Chief Complaint/Reason for Call: Manuela states that she would like to receive a cb to discuss if the providers are accepting [place] and when the soonest appt would be. Pt has a ref in chart for sjogrens w/ organ involvement. Please advise. 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 Archibald Practice: [facility] Chief Complaint/Reason for Call: Manuela states that she would like to receive a cb to discuss if the providers are accepting [place] and when the soonest appt would be. Pt has a ref in chart for sjogrens w/ organ involvement. Please advise. 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 Archibald Practice: [facility] Chief Complaint/Reason for Call: Manuela states [...] their call: No documented in this encounter [facility] 11-07-2022 Miscellaneous Notes Phone call placed patient advised (see prior provider encounter) Patient verbalized understanding, agreed with plan of care. Leonora Coe LPN Please call and let patient know he did test positive for influenza A. Continue [id number]-[id number]-hzhbnog medications as needed for cough and congestion. If not improving over the next 3 to 5 days follow-up with PCP. documented in this encounter [facility] 11-06-2022 Influenza virus A and B RNA and SARS-CoV-2 (COVID-19) N gene panel MEME+probe (Resp) COVID 19 RESULT: SARS-CoV-2 (Agent of COVID-19) Not Detected by RT-PCR or equivalent method. fredis [id number]_Ztbip [employer] ([place])_EUA This test was developed and its performance characteristics determined by [facility] [place]. This test has been authorized by FDA under an Emergency Use Authorization (EUA). This test has been validated in accordance with the FDA's Guidance Document Policy for Diagnostics Testing in Laboratories Certified to Perform High Complexity Testing under CLIA prior to Emergency use Authorization for Coronavirus Disease 2019 during the Public Health Emergency issued on January 14, 2020. Test performed by [facility], [facility] [place], [address] [address]. INFLUENZA A PCR: Positive for Influenza A by RT-PCR INFLUENZA B PCR: Negative for Influenza B by RT-PCR [facility] Viral illness- Primary Unspecified viral infection, in conditions classified elsewhere and of unspecified site [facility] Diagnosis Sjogren's syndrome, with unspecified organ [...] joint, multiple sites [facility] Diagnosis Sjogren's syndrome, with unspecified organ [...] joint, multiple sites [facility] Diagnosis Sjogren's syndrome with keratoconjunctivitis sicca (HCC)- Primary Polyarthralgia Pain in joint, multiple sites Celiac disease Encounter for screening for other viral diseases Crohn's disease of colon with complication (HCC) Abnormal CT of the chest Nonspecific (abnormal) findings on radiological and other examination of other intrathoracic organs [facility] Diagnosis Polyarthralgia- Primary Pain in joint, multiple sites Crohn's disease of colon with complication (HCC) Celiac disease Smoking history Sicca, unspecified type (HCC) Dysphagia, unspecified type documented in this encounter [facility] Summary Purpose Family History No Family History Records FoundNo Family History Records FoundNo Family History Records FoundNo Family History Records FoundNo Family History Records FoundNo Family History Records FoundNo Family History Records FoundNo Family History Records Found Advance Directives No Advanced Directives Records FoundDocuments on File Type Date Recorded 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 Advance Directive(s) 02/14/2021 8:36 AM [...] Modifed Barium Swallow Polly Reina DO [address] [place] [address] Referral ID Status Reason Start Date Expiration Date V isits Requested Visits Authorized [id number] Pending Review 07/30/2023 07/29/2024 1 1 Specialty Diagnoses / Procedures Referred By Elvin quiñones Referred To Contact Pulmonary Disease Diagnoses Polyarthralgia Polly Reina DO [address] [place] [address] [facility] [address] [place] [address] Phone: [phone] Referral ID Status Reason Start Date Expiration Date Visits Requested Visits Authorized [id number] Closed Patient Preference 09/11/2023 09/10/2024 1 1 Specialty Diagnoses / Procedures Referred By Contcarlos t Referred To Contact Gastroenterology Diagnoses Crohn's disease of colon with complication (HCC) Celiac disease Polly Reina DO [address] [place] [address] Mal Brian MD [address] [place] [address] Referral ID Status Reason Start Date Expiration Date V isits Requested Visits Authorized [id number] Closed Specialty Services Required/Marisa ent's Best Interest 12/16/2023 12/15/2024 1 1 Additional Source Comments (unrecognized sect ion and content) No Status Records FoundNo Status Records FoundNo Status Records FoundNo Status Records FoundNo Status Records FoundNo Status Records FoundNo Status Records FoundNo Status Records Found INFORMATION SOURCE (unrecogn ized section and content) DATE CREATED AUTHOR AUTHOR'S ORGANIZ ATION 06/03/2021 [facility] DATE CREATED AUTHOR AUTHOR'S ORGANIZ ATION 10/01/2022 [facility] DATE CREATED AUTHOR AUTHOR'S ORGANIZ ATION 11/09/2022 [facility] DATE CREATED AUTHOR AUTHOR'S ORGANIZ ATION 06/17/2023 [facility] DATE CREATED AUTHOR [facility]IZ AT[facility] DATE CREATED AUTHOR AUTHOR'S ORGANIZ ATION 12/27/2023 [facility] Source Comments (unrecognize d section and content) In the event this informatio n is protected by the Federal Confidentiality of Alcohol and Drug Abuse Patient Records regulations: The Federal rules restrict any use of the information to criminally investigate or prosecute any alcohol or drug abuse patient.[facility] event this information is protected by the Federal Confidentiality of Alcohol and Drug Abuse Patient Records regulations: The Federal rules restrict any use of the information to criminally investigate or prosecute any alcohol or drug abuse patient.[facility] the event this information is protected by the Federal Confidentiality of Alcohol and Drug Abuse Patient Records regulations: The Federal rules restrict any use of the information to criminally investigate or prosecute any alcohol or drug abuse patient.[facility] event this information is protected by the Federal Confidentiality of Alcohol and Drug Abuse Patient Records regulations: The Federal rules restrict any use of the information to criminally investigate or prosecute any alcohol or drug abuse patient.[facility] Reason for Visit (unrecogniz ed section and content) Reason Comments Results Reason Comments Cough Cough, congestion, w heezing, bodyaches and ROMANO x 2 days-exposed to COVID Reason Onset Date Comments Advice Only 06/11/2023 Reason Comments Consult Sjogrens syndrome Specialty Diagnoses / Procedures Referred By Contcarlos t Referred To Contact Rheumatology Diagnoses Sjogren's syndrome, with unspecified organ involvement ([facility]) Ynes Ovalles MD [address] [address] Polly Reina, DO [address] [place] [address] Referral ID Status Reason Start Date Expiration Date Visits Re quested Visits Authorized [id number] Closed 07/14/2023 07/13/2024 1 1 Care Teams (unrecognized sec tion and content) Recreation Leader Relationship Specialty Start Date End Date Lou Nunez, JACKIE [address] [place], [place] [phone] PCP - General Internal Medicine 05/24/21 Ольга Jane [address] [place] [phone] Referring Infectious Diseases 05/22/21 Recreation Leader Relationship Specialty Start Date End Date Lou Nunez CNP [address] [place], [place] [phone] PCP - General Internal Medicine 05/24/21 Ольга Jane MD Referring Infectious Diseases 05/22/21 Recreation Leader Relationship Specialty Start Date End Date Lou Nunez CNP [address] [place], [place] [phone] PCP - General Internal Medicine 05/24/21 Ольга Jane MD Referring Infectious Diseases 05/22/21 Recreation Leader Relationship Specialty Start Date End Date Ynes Ovalles MD [address] [place], [place] [phone] PCP - General Internal Medicine 07/14/23 KENY GODWIN Primary Care Physician 07/14/23 Recreation Leader Relationship Specialty Start Date End Date Ynes Ovalles MD [address] [place], [place] [phone] PCP - General Internal Medicine 07/14/23 KENY GODWIN Primary Care Physician 07/14/23 Recreation Leader Relationship Specialty Start Date End Date Ynes Ovalles MD [address] [place], [place] [address] PCP - General Internal Medicine 07/14/23 KENY GODWIN Primary Care Physician 07/14/23 Recreation Leader Relationship Specialty Start Date End Date Ynes Ovalles MD [address] [place], [place] [phone] PCP - General Internal Medicine 07/14/23 09/12/23 KENY GODWIN Primary Care Physician 07/14/23 Recreation Leader Relationship Specialty Start Date End Date Josselyn Galindo MD [address] [place] [address] PCP - General Internal Medicine 09/13/23 KENY [...] BE BASED ON THE PRIMARY CLINICAL RECORDS. [facility]. provides no warranty or guarantee of the accuracy or completeness of information in this document.
[2024-01-11 12:05] LABS: AST(SGOT) 13 U/L (15-37); Alanine Aminotransfer ALT/SGPT 21 U/L (16-61); Albumin, Serum 3.6 g/dL (3.2-5.0); Alkaline Phosphatase 115 U/L (45-117); Anion Gap 1 (5-15); BUN 17 mg/dL (7-18); BUN/Creat Ratio 24.4 RATIO (10-20); Calcium,Total 8.8 mg/dL (8.5-10.1); Chloride 109 mmol/L (98-107); Cholesterol 145 mg/dL (200); EST Glomerular Filtration Rate 132 mL/min (>60); Est Glom Filt Rate - Afr Amer 159 mL/min (>60); Globulin 3.5 g/dL (2.2-4.2); Glucose 94 mg/dL (74-106); High Density Lipoprotein 36 mg/dL; Potassium 4.5 mmol/L (3.5-5.1); Protein, Total 7.1 g/dL (6.4-8.2); Sodium Level 142 mmol/L (136-145); Triglycerides 60 mg/dL; Very Low Density Lipoprotein 12 mg/dL (5-40)
[2024-01-15 02:09] LABS: Trileptal-Oxcarbazepine 22 ug/mL (10-35)
== END | disposition home or self-care (01) ==
LOC: LAB 10:35
PROVIDERS: PCP Internal Medicine; Referring Provider Registered Nurse; Visit Provider Registered Nurse
DX: F31.81 Bipolar II disorder (principal); Z79.899 Other long term (current) drug therapy
CPT/HCPCS: 36415; 80053; 80061; 82542; 85025

== ENCOUNTER 2024-03-08 12:14 | Day surgery (SDC) | payer BC, SELFPAY ==
--- NOTE | 2024-03-08 | GASB_PTH ---
PATIENT: DEMI MCNAMARA LOC: EN U#:[id number] AGE/SX: 43/M ROOM: RE03/08/[address]: Dr. Adriel Godwin DO : 1980 BED: DIS: 03/08/2024 SPEC #: [id number] RECD: 03/09/24 10:18 STATUS: KWESI RENATA #: [id number] KENYATTA: 03/08/24 00:[address]: Adriel Godwin DEPT: SURGICAL PATHOLOGY RECD BY: Stephen Phan ENTERED: 03/09/24 10:18 SP TYPE: Gastric Bx JAN DR: Dr. Meghana Galindo MD Tissues: A - Gastric mucous membrane B - Ileum, NOS Procedures: Surgery Specimen Level IV HEADER OPERATION: Colonoscopy with biopsies, EGD PRE-OP DIAGNOSIS: Crohn's disease, celiac disease, Sjorgan syndrome, abdominal pain, constipation TISSUE SUBMITTED: A- Gastric ulcer biopsy, B- Terminal ileum biopsy MICROSCOPIC DIAGNOSIS A. Gastric ulcer, biopsy: Mild gastritis. See microscopic description and comment. B. Terminal ileum, biopsy: Fragments of small intestinal mucosa, no pathologic diagnosis. / 03/10/2024 COMMENT A. The results of immunohistochemistry for Helicobacter pylori will be reported separately ([id number]). MICROSCOPIC DESCRIPTION Slides are reviewed. A. The specimen shows fragments of gastric mucosa with chronic inflammatory cell infiltrates in the lamina propria consisting of lymphocytes and plasma cells, consistent with mild chronic gastritis. GROSS DESCRIPTION A. Received in fixative is one container labeled with the patient's name and designated Gastric ulcer biopsy. The specimen consists of two irregular fragments of light cotton soft tissue that in aggregate measure 0.8 x 0.4 x 0.1 cm. The specimen is totally submitted in one cassette. B. Received in fixative is one container labeled with the patient's name and designated Terminal ileum biopsy. The specimen consists of multiple irregular fragments of light cotton soft tissue that in aggregate measure 0.8 x 0.5 x 0.1 cm. The specimen is totally submitted in one cassette. INGRID/ 03/09/2024 TC:3 CPT: 62628a4
[2024-03-08 12:34] VITALS: BP 107/68; PULSE 63; RESP 18; TEMP 37.1; O2SAT 95; BMI 18.8
[2024-03-08] MEDS: Lactated Ringers 1,000 ML 15 ML IV (12:51)
--- NOTE | 2024-03-08 13:30 | IMM_PTH ---
PATIENT: DEMI MCNAMARA LOC: EN U#:[id number] AGE/SX: 43/M ROOM: RE03/08/[address]: Dr. Adriel Godwin DO : 1980 BED: DIS: 03/08/2024 SPEC #: [id number] RECD: 03/09/24 08:50 STATUS: KWESI RENATA #: [id number] KENYATTA: 03/08/24 13:[address]: Adriel Godwin DEPT: IMMUNOHISTOCHEMISTRY RECD BY: Paulo Robins ENTERED: 03/09/24 08:50 SP TYPE: IMMUNO OTHR DR: Dr. Meghana Galindo MD Tissues: A - Stomach, NOS Procedures: H Pylori (initial) PHYSICIAN & INSTITUTION [place] [address] SPECIMEN INFORMATION: Tissue Source: A- Gastric ulcer biopsy Clinical Info: Crohn's disease, celiac disease, sjogran syndrome, abdominal pain, constipation Specimen Number: [id number] CPT code: 91630 METHODOLOGY: Deparaffinized sections of prefer/formalin-fixed tissue or PAP/DQ stained slides are incubated with monoclonal/polyclonal antibodies/oligonucleotide probes. Localization is made via biotin free immunoperoxidase method. Appropriate controls are performed and reacted as expected. Results on target cell population are indicated in the following table: RESULTS: ANTIBODY / CLONE RESULT Block A H Pylori (polyclonal) negative These tests were developed and their performance characteristics determined by [facility]. They may not have been cleared or approved by the U.S. Food and Drug Administration. The FDA has determined that such clearance or approval is not necessary. The above immunohistochemical/dualISH markers are ordered and reviewed by the Pathologist. INTERPRETATION: A. Gastric ulcer, biopsy: Negative for Helicobacter pylori organisms. INGRID/ 03/10/24
--- NOTE | 2024-03-08 13:42 | PCM.HP.BLA ---
History and Physical Date of Admission: 03/08/24 DEMI MCNAMARA, is a 43 M who presents to the office today for *BGI established 08.06.21 for evaluation of hepatitis C, esophageal dysphagia, GERD. Biochemical ANCA, IgGA, DARRIAN, CBC, ESR, CMP, LDH CRP H12.20, SS-B IgG H1.7, celiac TTG H5, IgM H202, IgE L<2 HCV ab reactive HCV viral load HCV not detected HCV genotype insufficient viral copy, TNP Stool lactoferrin, calprotectin WNL ? EGD 08.13.21 with small sliding hiatal hernia; duodenitis; LA Grade B reflux esophagitis noted. Start Carafate 1gram TID OV 08.28.21 with ongoing headaches, dysphagia, N/V without change. He did not start Carafate. OV 10.16.21 no show. OV 06.06.22 no show. Contact 07.15.22 with symptoms of abdominal pain causing him to miss work. Contact 07.17.22 to report that he is having a reaction to Buspar without symptom resolution; he is worried about losing his job. Zofran scheduled Q6h started with promethazine PRN and recommendation to use double dose of MiraLAX for constipation. Asked to call clinic once he turns in stool samples. OV 08.26.22 doing well since cessation of gluten with reduction of nausea and resolution of emesis. Continues to have left and right abdominal discomfort with resolution following BM. Start hyoscyamine. ? EGD and colonoscopy with capsule placement 09.11.22. EGD found duodenitis with gastric metaplasia; exam otherwise normal. Colonoscopy found few ulcers in TI. Capsule endoscopy found celiac changes throughout small bowel. IBD workup OV 09.26.22 with LLQ discomfort/pain that is severe on some days and moderate on others; emesis continues to be resolved but has issue with nausea to a lesser degree than previously. BM are soft/formed to loose with periods of hard stool with difficult passage. Biochemical IBD profile suggestive of Crohn?s (apANCA). ? Start azathioprine 50 mg, with labs in two weeks then increase and prednisone taper. Contact 11.11.22 requesting refill of prednisone. Requested callback from demi to review symptoms and reminded of need for biochemical workup to increase AZA. Biochemical workup 11.13.22 CBC, CMP (anion gap 0) without concern for medication harm. Contact 11.26.22 with abdominal pain and discomfort with advancement of prednisone taper. Recommend biochemical workup then restart of prednisone. Biochemical workup CBC, ESR, CMP, celiac without pertinent abnormality. CRP H4.83 TPMT genotype wild type 1; activity H 27.6 (15.1-26.4). Contact 12.17.22 to get an update. With restart of prednisone he had a resolution of abdominal pain/discomfort. OV .06.07 Continues to have morning abdominal pain with periods of time with abdominal pain that lasts for multiple days in a row that lasts all day long. He has been using MirLAX for constipation, without this he has solid/hard stools that are difficulty to pass. With MiraLAX he is having daily BM but has repeat BM each morning. Once this regimen has completed the morning abdominal discomfort will dissipate. Will also have postprandial urgency. Contact 02.19.23 to report that he is having continued left sided abdominal pain, though this is much improved. Linzess 145 caused loose stools, Linzess 72 was ineffective. Start amitiza 8mcg BID. ? CT abd/pel 03.03.23 atelectasis suggestion of lung bases; moderate amount of fecal material in colon; colonic diverticulosis; diffuse bladder wall thickening. Contact with CT results. Amitiza started 03.05.23, continue with this regimen. Contact 03.26.23 with abdominal pain. Recommend biochemical, stool and KUB prior to making recommendations. ? Biochemical CBC (WBC 14.4, hgb 17.9), CMP, ESR, Celiac without pertinent abnormality. ? CRP H22.4 ? Stool calprotectin, lactoferrin not performed. ? KUB 03.27.23 moderate amount of fecal material in colon. Contact 03.31.23 to update. He will be turning stool testing in soon. Notes he has had difficulty with constipation as of late; increase amitiza to three capsule BID. OV 6 N/V, left sided abdominal pain and bloating. BM occurring daily with looser/softer consistency 2-3/day in the morning with incomplete evacuation; abdominal pain is relieved following BM. N/V has started again and has been causing him to miss work. Marijuana intake is daily which he uses to improve intake. Feels Zofran is helpful; showers are sometimes helpful with N/V. Contact 05.05.23 requesting prednisone. Refilled r/t ongoing inflammation and MREnterography ordered. ? MREnterography not scheduled. Contact 06.19.23 requesting refills of medications. During refill processing it is noted that he is not taking medications correctly as the time between refill requests is too long. Contact 07.31.23 with abdominal pain and concern for diverticulitis. STAT CT placed and arranged for which he did not attend. ? CT abd/pel, STAT scheduled, not attended. Contact 08.04.[address] claim representative [address] Hyacinth Aviles who has no concern regarding Sjogren?s, but possibility of inflammatory arthritis based on exam. She is awaiting further testing to be returned prior to making plans. ? CT abd/pel 08.13.23 mild thickening of urinary bladder, ?cystitis. No diverticulosis or inflammatory changes of bowel. Contact 08.21.23 with ongoing need to establish with urology; possible counseling/psychiatry services are needed. Contact 12.17.23 with irregular BM which occur daily but has a sensation of a lot of pressure followed by a softer BM. f/u 01.01.24 recommending return to pain management. ? KUB 2.12.09 no acute process. Stool seen in rectum. OV 4..24 - pt reports ongoing abdominal pain with no alleviating solutions. Pt reports having a formed stool once per day. Pt reports that he is eating on a gluten free diet. ROS Const Constitutional: Positive for headache(s) and weight change; No excessive sweating, frequent falls, snoring, weakness or change in appetite Eyes Eyes: No blurry vision, change in vision, eye pain or Light sensitivity ENT ENT: Positive for nasal congestion, post nasal drip, headache(s), difficulty swallowing, neck pain and sore throat; No abnormal hearing, ear or mastoid pain or tinnitus Resp Respiratory: Positive for cough, change in phlegm color, chest congestion, excessive phlegm production, pain on inspiration, shortness of breath and wheezing; No snoring Cardio Cardiology: No chest pain at rest, chest pain with exertion, excessive sweating, dyspnea on exertion, lightheadedness, orthopnea or palpitations Gastro GI: Positive for abdominal pain, bloating, change in bowel habits, difficulty swallowing, excessive flatus and nausea/dyspepsia; No constipation, cramping, diarrhea or vomiting Genitourinary Male: No burning urination, painful urination, urinary incontinence or urinary frequency Musc Musculoskeletal: Positive for joint pain, back pain, muscle cramps, muscle weakness, neck pain, stiffness and Arthritis; No abnormal gait, joint swelling, limited range of motion or numbness Skin Skin: No dry skin, redness, lesions, itchy eyes, rash or wounds Neuro Neurology: Positive for headache(s); No abnormal gait, abnormal hearing, behavioral changes, weakness, frequent falls, memory loss or numbness Psych Psychiatric: Positive for anxiety, No behavioral changes, No change in appetite, Positive for depression, No memory loss, No Thoughts of harming yourself/Others and Positive for Behavioral Problems Endo Endocrine: Positive for weight change; No excessive sweating Aller/Imm Allergy/Immunologic: Positive for wheezing; No itchy eyes, seasonal allergy symptoms or hives Kingsley/Lymp Hematologic/Lymphatic: No easy bleeding or easy bruising Exam Const General: cooperative, healthy appearing, comfortable and ill appearing Nutritional Appearance: average body habitus Orientation: alert, awake and oriented x3 HENMT Head: normal to inspection, no palpable skull fracture and normocephalic Ears: hearing grossly normal bilaterally, external ears normal, TM's normal bilaterally and EAC's normal Nose: external nose normal, nares normal, no nasal polyps, nasal mucous membranes and turbinates normal and nasal discharge clear Face and sinus: normal facial exam, sinuses nontender and face symmetric Mouth: oral mucosae normal, lip normal and tongue normal Teeth and gingiva: poor dentition Throat: posterior oropharynx abnormal erythema and postnasal drainage Eyes General: appearance normal, both eyes and all related structures Visual West: normal visual west by confrontation Alignment and Position: alignment normal Periorbital: periorbital findings normal Eyelids: eyelids normal Conjunctivae: conjunctivae normal Sclera: sclerae normal Cornea: corneas normal Pupils: PERRL EOM: EOM intact bilaterally Direct ophthalmoscopy: normal light reflex and no photophobia Neck Neck: normal visual inspection and full ROM Lymphatic: lymphadenopathy bilateral anterior cervical soft, mobile and tender 0.39 in Other: tender to upper trapezius on palpation bilaterally , full cervical ROM but reports pain with lateral turns Chest Chest palpation & inspection: normal inspection of the chest Resp Effort & Inspection: able to speak in complete sentences, symmetric chest movement and cough Quality of cough: dry Auscultation: Left: Expiratory Wheezes (throughout) and Right: Expiratory Wheezes (throughout) Cardio Palpation: normal PMI Rate: tachycardic Heart Sounds: S1 normal and S2 normal GI Inspection: normal to inspection and other (thin) Auscultation: normal bowel sounds Palpation: soft, no hepatosplenomegaly, not firm, no guarding, no hepatomegaly, no hepatosplenomegaly, no hernias, no masses and nontender General: No CVA tenderness Musc Cervical Spine: normal cervical lordosis and cervical muscular tenderness; No cervical spinal tenderness or step off deformity Thoracic/Lumbar Spine: thoracic and lumbar spine normal to inspection Skin General: no rashes or lesions noted Neuro General: patient alert, patient awake, patient oriented x3, oriented, gait normal, tone normal, moves all extremities and CN's II-XI intact bilaterally Cranial Nerves: CN's II-XI intact bilaterally, sense of smell intact, PERRL, accommodation normal, EOM intact bilaterally, no nystagmus, facial strength normal and tongue midline Cognition: normal cognition Speech: speech normal Gait: normal gait Motor: muscle tone normal throughout and strength 5/5 throughout Sensory Exam: no sensory deficits noted Extrem General: normal to inspection, full ROM and capillary refill normal Psych Appearance: grossly normal Mental Status: mental status grossly normal Mood: congruent mood Affect: normal affect Speech and Movement: speech and movement normal Attitude: cooperative Thought Process: normal Thought Content: normal Judgment: judgment good Quality Reporting Tobacco Screening ([facility] 138) Smoking Status: Current every day smoker Assessment and Plan Assessment and Plan (1) Crohn disease: Status: Chronic Qualifiers: Digestive disease complication type: without complication Gastrointestinal tract location: unspecified location Qualified Code(s): K50.90 - Crohn's disease, unspecified, without complications Plan: He will undergo repeat upper and lower endoscopy to evaluate his medical treatment. (2) Celiac disease: Status: Chronic Plan: Celiac disease as was seen on upper endoscopy to. He also has inflammation in his blood is coming from ulcerations that are seen in the small bowel possibly secondary to disease. (3) Sjogren syndrome with gastrointestinal involvement: Status: Suspected Comment: Suspected SS-B+ (4) Abdominal pain: Status: Chronic Plan: I think the pain is multifactorial secondary to possible Crohn's disease, celiac disease with elements of renal bowel syndrome. (5) Constipation: Status: Chronic Qualifiers: Constipation type: slow transit constipation Qualified Code(s): K59.01 - Slow transit constipation Plan: Chronic idiopathic constipation. I will give him Amitiza 24mcg bid He will also be on scheduled dicyclomine as I think his anxiety is each increasing His constipation problem and it is contributing to his abdominal pain. I will give him a short course of Alprazolam + Hyosciamine to treat abdominal migraines. (6) History of hepatitis C: Status: Chronic (7) Hepatitis C: Status: Inactive Qualifiers: Viral hepatitis chronicity: chronic Hepatic coma status: without hepatic coma Qualified Code(s): B18.2 - Chronic viral hepatitis C Plan: HCV PRC RNA remains negative Orders: Orders EGD 03/08/24 R10.9 - Unspecified abdominal pain Colonoscopy 03/08/24 R10.9 - Unspecified abdominal pain Medications: New peg 3350-electrolytes 236-22.74-6.74 -5.86 gram (Golytely) until fecal effluent is clear 240 mL PO Q10M 4,000 mL 0RF dicyclomine 20 mg PO TID PRN 90 tabs 3RF abdominal pain linaclotide (Linzess) I have examined the patient and the H&P has been reviewed. There are no clinical changes since date of exam.
[2024-03-08 14:23] VITALS: BP 107/68; BP 117/91; PULSE 70; RESP 17; TEMP 36.2; O2SAT 97
[2024-03-08 14:25] VITALS: BP 107/68; BP 130/75; PULSE 72; RESP 18; O2SAT 98
--- NOTE | 2024-03-08 14:27 | OP.EGD_ITS ---
Patient Name: Jose Ludwig Procedure Date: 03/08/2024 1:44 PM Date of : 1980 Age: 43 Procedure: Upper GI endoscopy Indications: Epigastric abdominal pain Providers: Adriel Godwin DO Medicines: Monitored Anesthesia Care Patient Profile: This is a 43 year old male. Refer to note in patient chart for documentation of history and physical. Patient has symptoms of chronic epigastric abdominal pain. Complications: No immediate complications. Procedure: Pre-Anesthesia Assessment: - Prior to the procedure, a History and Physical was performed, and patient medications and allergies were reviewed. The patient is competent. The risks and benefits of the procedure and the sedation options and risks were discussed with the patient. All questions were answered and informed consent was obtained. Patient identification and proposed procedure were verified by the physician in the pre-procedure area. Mental Status Examination: alert and oriented. Airway Examination: normal oropharyngeal airway and neck mobility. Prophylactic Antibiotics: The patient does not require prophylactic antibiotics. Prior Anticoagulants: The patient has taken no anticoagulant or antiplatelet agents. ASA Grade Assessment: II - A patient with mild systemic disease. After reviewing the risks and benefits, the patient was deemed in satisfactory condition to undergo the procedure. The anesthesia plan was to use monitored anesthesia care (MAC). Immediately prior to administration of medications, the patient was re-assessed for adequacy to receive sedatives. The heart rate, respiratory rate, oxygen saturations, blood pressure, adequacy of pulmonary ventilation, and response to care were monitored throughout the procedure. The physical status of the patient was re-assessed after the procedure. After obtaining informed consent, the endoscope was passed under direct vision. Throughout the procedure, the patient's blood pressure, pulse, and oxygen saturations were monitored continuously. The Colonoscope was introduced through the mouth, and advanced to the second part of duodenum. The upper GI endoscopy was accomplished without difficulty. The patient tolerated the procedure well. Scope In: 1:58:29 PM Scope Out: 2:05:57 PM Total Procedure Duration Time 0 hours 7 minutes 28 seconds Findings: The examined esophagus was normal. One oozing cratered gastric ulcer with pigmented material was found in the gastric body. The lesion was 6 mm in largest dimension. Coagulation for hemostasis using heater probe was successful. Estimated blood loss was minimal. One non-bleeding linear gastric ulcer with no stigmata of bleeding was found on the lesser curvature of the stomach. The lesion was 3 mm in largest dimension. Biopsies were taken with a cold forceps for histology. Verification of patient identification for the specimen was done. Estimated blood loss was minimal. No gross lesions were noted in the second portion of the duodenum. Impression: - Normal esophagus. - Oozing gastric ulcer with pigmented material. Treated with a heater probe. - Non-bleeding gastric ulcer with no stigmata of bleeding. Biopsied. - No gross lesions in the second portion of the duodenum. Recommendation: - Discharge patient to home. - Resume previous diet. - Continue present medications. - Await pathology results. -Protonix 40 mg twice daily and sulcrafate 1 g at night - Repeat upper endoscopy in 6 months for surveillance. Procedure Code(s): --- Professional --- 14169, 59, Esophagogastroduodenoscopy, flexible, transoral; with control of bleeding, any method 45897, 51, Esophagogastroduodenoscopy, flexible, transoral; with biopsy, single or multiple CPT copyright 2021 [employer]. All rights reserved. The codes documented in this report are preliminary and upon automatic coin machine mechanic review may be revised to meet current compliance requirements. Adriel Godwin DO 03/08/2024 2:26:44 PM This report has been signed electronically. Number of Addenda: 0 Note Initiated On: 03/08/2024 1:44 PM
--- NOTE | 2024-03-08 14:27 | OP.CCLET_ITS ---
03/08/2024 Meghana Galindo Md Re : Upper GI endoscopy procedure for Jose Ludwig Dear Mateo This procedure was performed on Friday, March 08, 2024. My impressions and recommendations are as follows: Impressions : - Normal esophagus. - Oozing gastric ulcer with pigmented material. Treated with a heater probe. - Non-bleeding gastric ulcer with no stigmata of bleeding. Biopsied. - No gross lesions in the second portion of the duodenum. Recommendations : - Discharge patient to home. - Resume previous diet. - Continue present medications. - Await pathology results. -Protonix 40 mg twice daily and sulcrafate 1 g at night - Repeat upper endoscopy in 6 months for surveillance. My findings are described in the full procedure note, which is enclosed. If I can be of further assistance, please feel free to contact me at . Sincerely, Adriel Friend, 03/08/2024 2:26:44 PM This report has been signed electronically.
[2024-03-08 14:30] VITALS: BP 107/68; BP 123/81; PULSE 68; RESP 16; O2SAT 98
--- NOTE | 2024-03-08 14:30 | OP.CCLET_ITS ---
03/08/2024 Meghana Galindo Md Re : Colonoscopy procedure for Jose Ludwig Dear Mateo This procedure was performed on Friday, March 08, 2024. My impressions and recommendations are as follows: Impressions : - The entire examined colon is normal. - The examined portion of the ileum was normal. Biopsied. Recommendations : - Discharge patient to home. - Resume previous diet. - Continue present medications. - Await pathology results. - Repeat colonoscopy in 1 year for surveillance. My findings are described in the full procedure note, which is enclosed. If I can be of further assistance, please feel free to contact me at . Sincerely, Adriel Godwin, 03/08/2024 2:29:25 PM This report has been signed electronically.
--- NOTE | 2024-03-08 14:30 | OP.COLON_ITS ---
Patient Name: Jose Ludwig Procedure Date: 03/08/2024 2:06 PM Date of : 1980 Age: 43 Procedure: Colonoscopy Indications: Crohn's disease of the small bowel Providers: Adriel Godwin DO Medicines: Monitored Anesthesia Care Patient Profile: This is a 43 year old male. Refer to note in patient chart for documentation of history and physical. Patient has symptoms of chronic epigastric abdominal pain. Last Colonoscopy: within the past 3 years. Complications: No immediate complications. Procedure: Pre-Anesthesia Assessment: - Prior to the procedure, a History and Physical was performed, and patient medications and allergies were reviewed. The patient is competent. The risks and benefits of the procedure and the sedation options and risks were discussed with the patient. All questions were answered and informed consent was obtained. Patient identification and proposed procedure were verified by the physician in the pre-procedure area. Mental Status Examination: alert and oriented. Airway Examination: normal oropharyngeal airway and neck mobility. Prophylactic Antibiotics: The patient does not require prophylactic antibiotics. Prior Anticoagulants: The patient has taken no anticoagulant or antiplatelet agents. ASA Grade Assessment: II - A patient with mild systemic disease. After reviewing the risks and benefits, the patient was deemed in satisfactory condition to undergo the procedure. The anesthesia plan was to use monitored anesthesia care (MAC). Immediately prior to administration of medications, the patient was re-assessed for adequacy to receive sedatives. The heart rate, respiratory rate, oxygen saturations, blood pressure, adequacy of pulmonary ventilation, and response to care were monitored throughout the procedure. The physical status of the patient was re-assessed after the procedure. After I obtained informed consent, the scope was passed under direct vision. Throughout the procedure, the patient's blood pressure, pulse, and oxygen saturations were monitored continuously. The Colonoscope was introduced through the anus and advanced to the terminal ileum. The colonoscopy was performed without difficulty. The patient tolerated the procedure well. The quality of the bowel preparation was adequate. The terminal ileum, ileocecal valve, appendiceal orifice, and rectum were photographed. Scope In: 2:08:23 PM Scope Withdrawal Time 0 hours 6 minutes 21 seconds Scope Out: 2:18:35 PM Total Procedure Duration Time 0 hours 10 minutes 12 seconds Findings: The perianal and digital rectal examinations were normal. The colon (entire examined portion) appeared normal. The terminal ileum appeared normal. Biopsies were taken with a cold forceps for histology. Verification of patient identification for the specimen was done. Estimated blood loss was minimal. Impression: - The entire examined colon is normal. - The examined portion of the ileum was normal. Biopsied. Recommendation: - Discharge patient to home. - Resume previous diet. - Continue present medications. - Await pathology results. - Repeat colonoscopy in 1 year for surveillance. Procedure Code(s): --- Professional --- 55366, Colonoscopy, flexible; with biopsy, single or multiple CPT copyright 2021 [employer]. All rights reserved. The codes documented in this report are preliminary and upon project engineer chemicals review may be revised to meet current compliance requirements. Adriel Godwin DO 03/08/2024 2:29:25 PM This report has been signed electronically. Number of Addenda: 0 Note Initiated On: 03/08/2024 2:06 PM
[2024-03-08 14:45] VITALS: BP 107/68; BP 123/78; PULSE 57; RESP 16; TEMP 36.7; O2SAT 96
[2024-03-08 15:04] VITALS: BP 107/68
== END 2024-03-08 15:06 | disposition home or self-care (01) ==
LOC: EN 12:15 → AC 12:16
PROVIDERS: PCP Internal Medicine; Referring Provider Internal Medicine; Visit Provider Internal Medicine Gastroenterology
PROC: 0DJD8ZZ Inspection of Lower Intestinal Tract, Via Natural or Artificial Opening Endoscopic (ICD-10-PCS; CPT 45378; principal; 2024-03-08 13:25)
DX: K25.9 Gastric ulcer, unspecified as acute or chronic, without hemorrhage or perforation (principal); K50.90 Crohn's disease, unspecified, without complications; B18.2 Chronic viral hepatitis C; R10.13 Epigastric pain; F17.200 Nicotine dependence, unspecified, uncomplicated; K90.0 Celiac disease; K29.70 Gastritis, unspecified, without bleeding
CPT/HCPCS: 45380; 43255; 43239; 88305; 88342; J7120; J2405

== ENCOUNTER → 2024-05-24 | Outpatient (CLI) | payer BC, SELFPAY ==
[2024-05-24 12:42] LABS: ALB/GLOB Ratio 1.1 RATIO (0.9-2.4); AST(SGOT) 14 U/L (15-37); Alanine Aminotransfer ALT/SGPT 22 U/L (16-61); Albumin, Serum 3.6 g/dL (3.2-5.0); Alkaline Phosphatase 143 U/L (45-117); Anion Gap 5 (5-15); BUN 10 mg/dL (7-18); BUN/Creat Ratio 12.9 RATIO (10-20); Calcium,Total 8.8 mg/dL (8.5-10.1); Chloride 101 mmol/L (98-107); Creatinine, Serum 0.77 mg/dL (0.70-1.30); EST Glomerular Filtration Rate 117 mL/min (>60); Est Glom Filt Rate - Afr Amer 141 mL/min (>60); Globulin 3.3 g/dL (2.2-4.2); Glucose 149 mg/dL (74-106); Magnesium 2.1 mg/dL (1.6-2.6); Potassium 3.4 mmol/L (3.5-5.1); Protein, Total 6.9 g/dL (6.4-8.2); Sodium Level 136 mmol/L (136-145); T4 Free Direct 1.01 ng/dL (0.76-1.46); Thyroid Stim Hormone (TSH) 0.57 uIU/mL (0.358-3.74)
[2024-05-24 12:45] LABS: Absolute Lymphocyte Count 1.07 X10^3/uL (0.83-4.51); Basophil# 0.05 X10^3/uL; Basophil% 0.7 % (0-1); Eosinophil# 0.31 X10^3/uL; Eosinophils% 4.5 % (0-5); Hematocrit 47.8 % (40-54); Hemoglobin 15.6 g/dL (13.0-16.5); Lymphocyte # 1.07 X10^3/ul (0.83-4.51); Lymphocyte % 15.4 % (19-41); Mean Corp Hgb Conc 32.6 g/dL (32-36); Mean Corpuscular Hgb 27.8 pg (27.0-32.0); Mean Corpuscular Volume 85.1 fL (80-94); Mean Platelet Vol. 11.9 fl (6.2-12.0); Monocyte# 0.47 X10^3/uL; Monocyte% 6.8 % (0-10); NRBC Flagged by Analyzer 0 % (0-5); Neutrophil # 5.02 X10^3/uL (2.7-7.7); Neutrophil % 72.5 % (47-70); Platelet Count 211 K/mm3 (150-450); RBC Distribution Width CV 12.5 % (11.6-14.6); RBC Distribution Width SD 38.5 fl (35.1-43.9); Red Blood Count 5.62 M/mm3 (4.6-6.2); White Blood Count 6.9 K/mm3 (4.4-11.0)
[2024-05-28 12:13] LABS: Trileptal-Oxcarbazepine 30 ug/mL (10-35)
== END | disposition home or self-care (01) ==
LOC: BIMLAB 08:35
PROVIDERS: PCP Internal Medicine; Referring Provider Nurse Practitioner; Visit Provider Nurse Practitioner
DX: R56.9 Unspecified convulsions (principal)
CPT/HCPCS: 36415; 80053; 82140; 82542; 83735; 84439; 84443; 85025

== ENCOUNTER → 2024-05-25 | Outpatient (CLI) | payer BC, SELFPAY ==
--- NOTE | 2024-05-25 09:42 | CT_ITS ---
STUDY: CT BRAIN WITH AND WITHOUT CONTRAST REASON FOR EXAM: Male, 44 years old. Seizure- like activity RADIATION DOSAGE (If Supplied By Facility): CTDIvol = ( 44.99 ) mGy, DLP = ( 1513.48 ) mGycm TECHNIQUE: Transaxial CT imaging of the brain was performed pre and post contrast administration. The examination was performed with intravenous administration of IV 50mL Isovue-370. Individualized dose optimization techniques were used for this CT. COMPARISON: None. FINDINGS: Normal soft tissue structures. Normal calvarium. There is mild cerebral atrophy with widening of the extra-axial spaces and ventricular dilatation. Normal white matter tracts of the cerebral hemispheres. Normal basal ganglia and thalami. Normal brainstem. Normal cerebellum. There is no intracranial hemorrhage. There are no findings of an acute ischemic infarction. Normal visualized paranasal sinuses. CT/Brain/Head W/WO Contrast IMPRESSION: Chronic involutional changes of the brain. Electronically Signed: Fabrizio Chin MD at 10:34 EDT ,
== END | disposition home or self-care (01) ==
LOC: CT 09:41
PROVIDERS: PCP Internal Medicine; Referring Provider Internal Medicine Gastroenterology; Visit Provider Internal Medicine Gastroenterology
DX: R56.9 Unspecified convulsions (principal)
CPT/HCPCS: 70470; Q9967

== ENCOUNTER 2024-06-08 06:32 | Outpatient (CLI) | payer BC, SELFPAY ==
--- NOTE | 2024-06-08 06:50 | MRI_ITS ---
EXAM: MR HEAD WITHOUT AND WITH INTRAVENOUS CONTRAST CLINICAL INDICATION: CONVULSIONS WITH SEIZURE X 6 MONTHS TECHNIQUE: Multiplanar and multisequence MR images of the brain were obtained without and with intravenous contrast. CONTRAST: 12 mL of IV Clariscan. COMPARISON: CT head without contrast 05/25/2024. FINDINGS: BRAIN AND EXTRA-AXIAL SPACES: No focal signal abnormalities throughout the brain parenchyma in all pulse sequences. No bhandari matter heterotopia or neuronal migrational disorders. The limbic lobes are normal and symmetrical. Normal ventricles and cisterns. No communicating or noncommunicating hydrocephalus. Following IV contrast administration, there are no abnormally enhancing lesions intra-axially and extra-axially. No intra- or extra-axial hemorrhage. No evidence of acute infarct or remote cortical-based ischemic infarct. No intracranial mass or mass effect. Posterior fossa structures are normal. SELLA: Unremarkable. Normal sella turcica, pituitary gland, infundibular stalk, optic chiasm and hypothalamus. AUDITORY SYSTEM: Unremarkable. The internal auditory canals are patent. BONES/JOINTS: Unremarkable. No discrete lytic or blastic abnormalities. SINUSES: Unremarkable as visualized. Clear. MASTOID AIR CELLS: Unremarkable as visualized. Clear. ORBITS: Unremarkable as visualized. Both globes, extraocular muscles, optic nerves and retrobulbar fat appear unremarkable. VASCULATURE: Unremarkable as visualized. Normal flow voids in the major intracranial circulation. MRI/Brain W/WO Contrast IMPRESSION: Normal MRI brain with and without contrast including the thin sections through the limbic lobes. Electronically Signed: Logan Causey MD at 8:43 EDT ,
== END 2024-06-08 23:59 | disposition home or self-care (01) ==
LOC: MRI 06:34
PROVIDERS: PCP Internal Medicine; Referring Provider Nurse Practitioner; Visit Provider Nurse Practitioner
DX: R56.9 Unspecified convulsions (principal)
CPT/HCPCS: 70553; A9575

== ENCOUNTER → 2024-06-17 | Outpatient (CLI) | payer BC, SELFPAY | END | disposition home or self-care (01) | PROVIDERS: PCP Internal Medicine; Referring Provider Nurse Practitioner; Visit Provider Nurse Practitioner | DX: R56.9 Unspecified convulsions (principal) | CPT/HCPCS: 95819 ==

== ENCOUNTER → 2024-08-29 | Outpatient (CLI) | payer BC, SELFPAY ==
[2024-08-29 09:19] LABS: Absolute Lymphocyte Count 2.09 X10^3/uL (0.83-4.51); Absolute Neutrophil Count 8.3 X10^3/uL (2.0-7.7); Basophil# 0.08 X10^3/uL; Basophil% 0.7 % (0-1); Eosinophil# 0.19 X10^3/uL; Eosinophils% 1.6 % (0-5); Hematocrit 49.9 % (40-54); Hemoglobin 15.7 g/dL (13.0-16.5); Lymphocyte # 2.09 X10^3/ul (0.83-4.51); Lymphocyte % 18.1 % (19-41); Mean Corp Hgb Conc 31.5 g/dL (32-36); Mean Corpuscular Hgb 28.1 pg (27.0-32.0); Mean Corpuscular Volume 89.4 fL (80-94); Mean Platelet Vol. 11.4 fl (6.2-12.0); Monocyte# 0.86 X10^3/uL; Monocyte% 7.4 % (0-10); NRBC Flagged by Analyzer 0 % (0-5); Neutrophil # 8.27 X10^3/uL (2.7-7.7); Neutrophil % 71.6 % (47-70); Platelet Count 188 K/mm3 (150-450); RBC Distribution Width CV 13.7 % (11.6-14.6); RBC Distribution Width SD 45.4 fl (35.1-43.9); Red Blood Count 5.58 M/mm3 (4.6-6.2); White Blood Count 11.6 K/mm3 (4.4-11.0)
[2024-08-29 10:20] LABS: AST(SGOT) 5 U/L (15-37); Alanine Aminotransfer ALT/SGPT 9 U/L (16-61); Albumin, Serum 3.1 g/dL (3.2-5.0); Alkaline Phosphatase 65 U/L (45-117); Anion Gap 6 (5-15); BUN 17 mg/dL (7-18); BUN/Creat Ratio 24.3 RATIO (10-20); Calcium,Total 8.5 mg/dL (8.5-10.1); Chloride 106 mmol/L (98-107); EST Glomerular Filtration Rate 131 mL/min (>60); Est Glom Filt Rate - Afr Amer 158 mL/min (>60); Glucose 123 mg/dL (74-106); Potassium 4.1 mmol/L (3.5-5.1); Protein, Total 6.1 g/dL (6.4-8.2); Sodium Level 142 mmol/L (136-145)
[2024-08-29 11:07] LABS: Carbamazepine (Tegretol) < 0.5 ug/mL (4.0-12.0); Valproic Acid (Depakene) Level 78 ug/mL (50-100)
== END | disposition home or self-care (01) ==
PROVIDERS: PCP Internal Medicine; Referring Provider Psychiatry & Neurology Neurology; Visit Provider Psychiatry & Neurology Neurology
DX: G40.909 Epilepsy, unspecified, not intractable, without status epilepticus (principal)
CPT/HCPCS: 36415; 80053; 80156; 80164; 85025

== ENCOUNTER → 2024-09-21 | Outpatient (CLI) | payer BC, SELFPAY | END | disposition home or self-care (01) | LOC: MRI 07:49 | PROVIDERS: PCP Internal Medicine; Referring Provider Student in an Organized Health Care Education/Training Program; Visit Provider Student in an Organized Health Care Education/Training Program | DX: M25.50 Pain in unspecified joint (principal) | CPT/HCPCS: 73220; A9575 ==

== ENCOUNTER → 2024-12-28 | Outpatient (CLI) | payer BC, SELFPAY ==
[2024-12-28 12:01] LABS: AST(SGOT) 19 U/L (15-37); Alanine Aminotransfer ALT/SGPT 48 U/L (16-61); Albumin, Serum 3.3 g/dL (3.2-5.0); Alkaline Phosphatase 83 U/L (45-117); Anion Gap 6 (5-15); BUN 16 mg/dL (7-18); BUN/Creat Ratio 21.6 RATIO (10-20); Bilirubin, Direct 0.13 mg/dL (0.00-0.30); Calcium,Total 8.4 mg/dL (8.5-10.1); Chloride 104 mmol/L (98-107); Creatinine, Serum 0.74 mg/dL (0.70-1.30); EST Glomerular Filtration Rate 122 mL/min (>60); Est Glom Filt Rate - Afr Amer 148 mL/min (>60); Globulin 3.2 g/dL (2.2-4.2); Glucose 125 mg/dL (74-106); Magnesium 2.2 mg/dL (1.6-2.6); Potassium 4.6 mmol/L (3.5-5.1); Protein, Total 6.5 g/dL (6.4-8.2); Sodium Level 138 mmol/L (136-145)
== END | disposition home or self-care (01) ==
LOC: LAB 10:13
PROVIDERS: PCP Internal Medicine; Referring Provider Physician Assistant; Visit Provider Physician Assistant
DX: R27.8 Other lack of coordination (principal)
CPT/HCPCS: 36415; 80048; 80076; 82140; 83735

== ENCOUNTER → 2025-01-05 | Outpatient (CLI) | payer BC, SELFPAY ==
[2025-01-05 08:47] LABS: Absolute Lymphocyte Count 2.39 X10^3/uL (0.83-4.51); Absolute Neutrophil Count 5.2 X10^3/uL (2.0-7.7); Basophil# 0.05 X10^3/uL; Basophil% 0.6 % (0-1); Eosinophils% 2.2 % (0-5); Hematocrit 46.1 % (40-54); Hemoglobin 14.2 g/dL (13.0-16.5); Lymphocyte # 2.39 X10^3/ul (0.83-4.51); Lymphocyte % 26.8 % (19-41); Mean Corp Hgb Conc 30.8 g/dL (32-36); Mean Corpuscular Hgb 29.2 pg (27.0-32.0); Mean Corpuscular Volume 94.7 fL (80-94); Mean Platelet Vol. 10.8 fl (6.2-12.0); Monocyte# 1.02 X10^3/uL; Monocyte% 11.4 % (0-10); NRBC Flagged by Analyzer 0 % (0-5); Neutrophil # 5.15 X10^3/uL (2.7-7.7); Neutrophil % 57.9 % (47-70); Platelet Count 182 K/mm3 (150-450); RBC Distribution Width CV 13.4 % (11.6-14.6); RBC Distribution Width SD 46.9 fl (35.1-43.9); Red Blood Count 4.87 M/mm3 (4.6-6.2); White Blood Count 8.9 K/mm3 (4.4-11.0)
[2025-01-05 09:22] LABS: ALB/GLOB Ratio 0.9 RATIO (0.9-2.4); AST(SGOT) 4 U/L (15-37); Alanine Aminotransfer ALT/SGPT 22 U/L (16-61); Albumin, Serum 2.8 g/dL (3.2-5.0); Alkaline Phosphatase 63 U/L (45-117); Anion Gap 5 (5-15); BUN 19 mg/dL (7-18); Calcium,Total 8.3 mg/dL (8.5-10.1); Chloride 111 mmol/L (98-107); Cholesterol 158 mg/dL (200); Creatinine, Serum 0.79 mg/dL (0.70-1.30); EST Glomerular Filtration Rate 113 mL/min (>60); Est Glom Filt Rate - Afr Amer 137 mL/min (>60); Glucose 148 mg/dL (74-106); High Density Lipoprotein 38 mg/dL; Potassium 3.4 mmol/L (3.5-5.1); Protein, Total 5.8 g/dL (6.4-8.2); Sodium Level 147 mmol/L (136-145); Triglycerides 195 mg/dL; Very Low Density Lipoprotein 39 mg/dL (5-40)
[2025-01-05 09:37] LABS: Hemoglobin A1c 5.7 % (3.8-5.6)
[2025-01-05 11:35] LABS: Vitamin B12 366 pg/mL (211-911)
[2025-01-05 14:26] LABS: Vitamin D,25 Hydroxy 27.3 ng/mL
[2025-01-10 08:08] LABS: Testosterone Free 0.9 pg/mL (6.8-21.5)
== END | disposition home or self-care (01) ==
LOC: LAB 08:02
PROVIDERS: PCP Internal Medicine; Referring Provider Internal Medicine; Visit Provider Internal Medicine
DX: J44.9 Chronic obstructive pulmonary disease, unspecified (principal); R10.9 Unspecified abdominal pain; G89.29 Other chronic pain; Z13.6 Encounter for screening for cardiovascular disorders; R73.09 Other abnormal glucose; K90.0 Celiac disease
CPT/HCPCS: 36415; 80053; 80061; 82306; 82607; 83036; 84402; 85025

== ENCOUNTER → 2025-01-13 | Outpatient (CLI) | payer BC, SELFPAY ==
[2025-01-18 11:08] LABS: Testosterone, % Free 3.26 % (1.50-4.20); Testosterone, Free 4.69 ng/dL (5.00-21.00); Testosterone, Total 144 ng/dL (264-916)
== END | disposition home or self-care (01) ==
PROVIDERS: PCP Internal Medicine; Referring Provider Internal Medicine; Visit Provider Internal Medicine
DX: E34.9 Endocrine disorder, unspecified (principal)
CPT/HCPCS: 36415; 84402; 84403

== ENCOUNTER → 2025-04-04 | Outpatient (CLI) | payer BC, SELFPAY ==
[2025-04-04 16:14] LABS: CORTISOL AM 1.98 ug/dL (6.02-18.40); Follicle Stimulating Hormone 10.5 mIU/mL; Luteinizing Hormone 6.4 mIU/mL; PSA,Total - Annual Screen 0.22 ng/mL (0.02-4.00)
[2025-04-06 04:07] LABS: DHEA Sulfate 11.1 ug/dL (102.6-416.3); PROLACTIN 11.4 ng/mL (3.9-22.7)
== END | disposition home or self-care (01) ==
LOC: BIMLAB 11:16
PROVIDERS: PCP Internal Medicine; Referring Provider Internal Medicine Endocrinology, Diabetes & Metabolism; Visit Provider Internal Medicine Endocrinology, Diabetes & Metabolism
DX: R79.89 Other specified abnormal findings of blood chemistry (principal); N64.3 Galactorrhea not associated with childbirth; M35.08 Sjogren syndrome with gastrointestinal involvement
CPT/HCPCS: 36415; 82533; 82627; 83001; 83002; 84146; 84153; 82626; G0103

== ENCOUNTER 2025-06-03 12:47 | Emergency (ER) | payer BC, SELFPAY ==
[2025-06-03 12:48] VITALS: BP 118/82; PULSE 100; RESP 18; TEMP 37; O2SAT 88; BMI 22.6
--- OUTSIDE RECORDS SUMMARY | 2025-06-03 13:23 | XMS RPT_ITS | CCD ---
Author Organization [facility] Care Team Providers Care Radiology Receptionist Name Role Phone Evaristo Madison Unavailable Unavailable PROVIDER, UNKNOWN Unavailable Unavailable No, PCP Unavailable Unavailable SignsОльга J Unavailable Nunez EMAIL CAMPAIGN SPECIALIST, Silvia K Primary Care Provider [facility] [place] Giovanni Primary Care Pro vider [facility] [place] Startznoel Referring Provid er Dr. Jason Haywood Attending Provider Dr. Pako Braswell Attending Provider [phone] [facility] [place] Giovanni Primary Care Pro vider [facility] [place] Startlandy Referring Provid er Citlali, Dr. Morel Attending Provider [phone] TRENT MCCAIN Attending Unavailable TRENT MCCAIN Referring Unavailable Signs Ольга TINOCO Unavailable Nunez EMAIL CAMPAIGN SPECIALIST, Silvia K Primary Care Provider NUNEZ, SILVIA K Primary Care Unavailable EDWARD POWELL Referring Unavailable NUNEZ, SILVIA K Primary Care Unavailable HAMMER, SILVIA Referring Unavailable NUNEZ, SILVIA K Primary Care Unavailable NUNEZ, SILVIA K Primary Care Unavailable [facility] [place] Startzman Referring Provid er FriendDr. Morel Attending Provider Care Physician, No Primary Primary Care Provider Unavailable Care Physician, No Primary Referring Provider Un available FriendDr. Morel Other Provider NEENA Abdi Attending Provider Care Physician, No Primary Primary Care Provider Unavailable Care Physician, No Primary Referring Provider Un available FriendDr. Morel Attending Provider [phone] Unavailable Primary Care Provider Unavailabl e Care Physician, No Primary Primary Care Provider Unavailable Care Physician, No Primary Referring Provider Un available Friend, Dr. Morel Attending Provider [phone] Dr. Josselyn Galindo Attending Provider [phone] Dr. Josselyn Galindo Primary Care Provider Dr. Teresa Blanc Attending Provider [phone] Dr. Josselyn Galindo Referring Provider [phone] Dr. Josselyn Galindo Other Provider [phone] Rene Simon Attending Provider Krishna TINOCO, Ynes Yi Primary Care Provider [phone] Care Physician, No Primary Primary Care Provider Unavailable Care Physician, No Primary Referring Provider Un available Friend, Dr. Morel Attending Provider [phone] Ynes Keller MD Primary Care Provider [phone] Care Physician, No Primary Primary Care Provider Unavailable Care Physician, No Primary Referring Provider Un available Dr. Josselyn Galindo Attending Provider [phone] Dr. Josselyn Galindo Primary Care Provider Dr. Teresa Blanc Attending Provider [phone] Dr. Josselyn Galindo Referring Provider [phone] Dr. Josselyn Galindo Other Provider [phone] Rene Simon Attending Provider [phone] Dr. Keny Guevara Attending Provider [phone] Josselyn Galindo MD Primary Care Provider [phone] JOSSLEYN GALINDO Primary Care Unavailable FALLS, POLLY SORENSON Attending Unavailabl e YNES KELLER Primary Care Unavailable FALLS, POLLY SORENSON Referring Unavailabl e YNES KELLER Primary Care Unavailable FALLS, POLLYIris SORENSON Referring Unavailabl e FALLS, POLLY SORENSON Attending Unavailabl e FALLS, POLLYIris SORENSON Referring Unavailabl e YNES KELLER Primary Care Unavailable LATOSHA, POLLY SORENSON Attending Unavailabl e FALLS, POLLY SORENSON Referring Unavailabl e FALLS, POLLY SORENSON Admitting Unavailyennifer e YNES KELLER Primary Care Unavailable YNES KELLER Primary Care Unavailable Care Physician, No Primary Referring Provider Un available Dr. Josselyn Galindo Primary Care Provider Dr. Josselyn Galindo Attending Provider [phone] Dr. Josselyn Galindo Referring Provider [phone] Dr. Rene Simon Attending Provider Dr. Josselyn Galnido Primary Care Provider Dr. Josselyn Galindo Primary Care Provider Dr. Josselyn Galindo Referring Provider [phone]) Dr. Josselyn Galindo Attending Provider [phone] COURTNEY Contreras Attending Provider [phone] Dr. Josselyn Galindo Primary Care Provider Dr. Josselyn Galindo Attending Provider [phone] Dr. Josselyn Galindo Referring Provider [phone] COURTNEY Contreras Attending Provider [phone] Friend, Dr. Morel Attending Provider [phone] Friend, Dr. Morel Other Provider [phone] Josselyn Galindo MD Primary Care Provider [phone] Dr. Josselyn Galindo MD Referring Provider Friend , Dr. Morel Attending Provider Dr. Josselyn Galindo MD Attending Provider Jovita Beverly Attending Provider Jovita eBverly Referring Provider Dr. Josselyn Galindo MD Primary Care Provider [phone] Dr. Josselyn Galindo MD Referring Provider Friend DO, Dr. Morel Attending Provider King ALEJANDRINA, Dr. Sinha Attending Provider [phone] King ALEJANDRINA, Dr. Sinha Referring Provider [phone] MATEO, JOSSELYN LESLIE Primary Care Unavailable FALLS, POLLY SORENSON Attending Unavailabl e FALLS, POLLY SORENSON Attending Unavailabl e MTAEO, JOSSELYN LESLIE Primary Care Unavailable FALLS, POLLYIris SORENSON Attending Unavailabl e MATEO, JOSSELYN LESLIE Primary Care Unavailable FALLS, POLLY SORENSON Attending Unavailabl e MATEO, JOSSELYN LESLIE Primary Care Unavailable Mateo TINOCO, Dr. Kowalski Primary Care Provider [phone] Mateo TINOCO, Dr. Kowalski Referring Provider Friend , Dr. Morel Attending Provider Mateo, Josselyn Primary Care Unavailable Gabo, Kevin Referring Unavailable Kevin Ayon Attending Unavailable Connie Roy Attending Unavailable [place], Josselyn Primary Care Unavailable Waight, Jovita Referring Unavailable Waight, Jovita Attending Unavailable [place], Josselyn Primary Care Unavailable Maeto, Josselyn Referring Unavailable Keny Guevara Attending Unavailable Mateo, Josselyn Primary Care Unavailable [place], Josselyn Referring Unavailable Mateo, Josselyn Attending Unavailable [place], Josselyn Primary Care Unavailable Mateo, Josselyn Primary Care Unavailable [place], Josselyn Referring Unavailable Keny Guevara Attending Unavailable Mateo, Josselyn Primary Care Unavailable Mateo, Josselyn Referring Unavailable Bharath Pires Attending Unavailable FriendKeny Attending Unavailable Mateo, Josselyn Primary Care Unavailable [place], Jsoselyn Referring Unavailable Mateo, Josselyn Referring Unavailable FriendKeny Attending Unavailable Mateo, Josselyn Primary Care Unavailable Mateo, Josselyn Primary Care Unavailable Mateo, Jossleyn Referring Unavailable [place], Josselyn Attending Unavailable [place], Josselyn Primary Care Unavailable [place], Josselyn Referring Unavailable Mateo, Josselyn Attending Unavailable Mateo, Josselyn Primary Care Unavailable Bharath Pires Attending Unavailable Bharath Pires Referring Unavailable Jovita Contreras Referring Unavailable Jovita Contreras Attending Unavailable [place] Josselyn Primary Care Unavailable Jovita Contreras Referring Unavailable Jovita Contreras Attending Unavailable Mateo, Josselyn Primary Care Unavailable Mateo, Josselyn Primary Care Unavailable Falls, Polly Referring Unavailable Falls Polly Attending Unavailable Generic Provider MD, No Assigned Pcp Primary Car e Provider Unavailable GENERIC PROVIDER, NO ASSIGNED PCP Primary Care Unavailable Allergies Allergy Classification Reported Allergen(s) Allergy Type Date of Onset Reaction(s) Facility (6 sources) Penicillins; Translations: [PENICILLINS] Drug Intolerance 5 Intolerance [facility] (18 sources) Penicillins Allergy to substance 2 [facility] (8 sources) Penicillins Drug Intolerance 5 Intolerance, Unknown, Rash [facility] (2 sources) Penicillins Propensity to adverse reactions to drug 5 Unknown, Rash [facility] (1 source) Penicillins Drug allergy (disorder) 5 [facility] Repository Medications Current Medications Medication Drug Class(es) Dates Sig (Normalized) Sig (Original) [id number] 200 actuat albuterol 0.09 mg/actuat metered dose inhaler (20 sources) beta2-Adrenergic Agonist Start: 01-07-2024 Albuterol Sulfate 90 mcg/actuation HFA aerosol inhaler Active 2 NMA INHALATION EVERY 6 HOURS as needed for shortness of breath or wheezing 6.7 0 January 07, 2024 1:00am Chronic obstructive pulmonary disease Chronic obstructive pulmonary disease, unspecified Start: 01-07-2024 take 1 puff(s) by in halation every six hours Albuterol Sulfate Active 2 PUFF INHALATION EVERY 6 HOURS 6.7 January 07, 2024 1:00am Start: 09-01-2023 End: 03-07-2024 Albuterol Discontinued 90 MC G INHALATION NEEDED September 01, 2023 12:00am March 07, 2024 11:07am Start: 09-01-2023 Albuterol Acti ve 90 MCG INHALATION NEEDED August 31, 2023 11:00pm Start: 09-01-2023 Albuterol Acti ve MCG INHALATION September 01, 2023 12:00am Start: 06-30-2021 take 2 puff(s) by in halation every four hours as needed albuterol HFA (PROAIR HFA) 90 mcg/actuation inhaler Inhale 2 Puffs as instructed every 4 hours as needed. 18 g 0 06/30/2021 Active Start: 08-06-2018 End: 09-08-2018 take 1 puff(s) by inhalation every six hours Albuterol Sulfate (Ventolin Hfa) 90 mcg/actuation HFA aerosol inhaler Discontinued 2 PUFF INHALATION EVERY 6 HOURS 8.5 August 06, 2018 3:10pm September 08, 2018 4:49pm Start: 08-06-2018 End: 09-08-2018 Albuterol Sulfate (Ventolin Hfa) 90 mcg/actuation HFA aerosol inhaler Discontinued 2 NMA INHALATION EVERY 6 HOURS as needed for shortness of breath or wheezing 8.5 1 August 06, 2018 12:00am September 08, 2018 4:49pm Start: 08-06-2018 End: 09-08-2018 take 1 puff(s) by inhalation every six hours Albuterol Sulfate (Ventolin Hfa) 90 mcg/actuation HFA aerosol inhaler Discontinued 2 PUFF INHALATION EVERY 6 HOURS 8.5 August 06, 2018 12:00am September 08, 2018 4:49pm Comment on above: Inhale 2 Puffs as in structed every 4 hours as needed. ALPRAZolam 1 mg oral tablet (20 sources) Benzodiazepine Start: take 1 tablet by mouth twice daily as needed for anxiety Alprazolam 1 mg tablet Active 1 mg PO TWICE A DAY as needed for anxiety April 04, 2025 12:00am Start: 02-17-2025 End: 03-19-2025 take 1 tablet by mouth twice daily as needed for anxiety Alprazolam 1 mg tablet Discontinued 1 mg PO TWICE A DAY as needed for anxiety 60 30 0 February 17, 2025 12:00am March 18, 2025 12:00am March 19, 2025 12:09am Start: 12-21-2023 End: 03-07-2024 take 1 tablet by mouth twice daily as needed for pain Alprazolam (Xanax) 0.5 mg tablet Discontinued 0.5 mg PO TWICE A DAY as needed for abdominal pain 12 December 21, 2023 1:00am March 07, 2024 11:08am Start: 08-28-2023 End: 09-27-2023 take 1 tablet by mouth twice daily as needed for anxiety Alprazolam 1 mg tablet Discontinued 1 mg PO TWICE A DAY as needed for anxiety 60 30 0 August 28, 2023 12:00am September 26, 2023 1:00am September 27, 2023 1:05am brivaracetam 50 mg oral tablet (2 sources) Start: 07-18-2024 take 1 tablet by mouth twice daily Briviact 50 mg tablet Take 1 (one) tablet (50 mg total) by mouth 2 (two) times a day . 07/18/2024 Active buprenorphine 2 mg sublingual tablet (20 sources) Partial Opioid Agonist Start: 07-13-2019 Buprenorphine Hcl Active 2 MG SL THREE TIMES A DAY July 13, 2019 10:17pm Start: 07-13-2019 End: 06-17-2023 take 4 tablets under the tongue twice daily Buprenorphine Hcl 2 MG tablet, sublingual Discontinued 8 mg SL TWICE A DAY July 13, 2019 12:00am June 17, 2023 10:14am Start: 07-13-2019 End: 06-17-2023 Buprenorphine Hcl Discontinu ed 8 MG SL TWICE A DAY July 13, 2019 12:00am June 17, 2023 10:14am Comment on above: Dissolve 2 mg under the tongue three times daily. buprenorphine 8 mg / naloxone 2 mg sublingual tablet (20 sources) Partial Opioid Agonist, Opioid Antagonist Start: take 1 tablet under the tongue three times daily Buprenorphine-Nalox one 8-2 mg tablet, sublingual Active 1 {tbl} SL THREE TIMES A DAY April 04, 2025 10:08am Start: 07-08-2023 buprenorphine- nalOXone (SUBOXONE) 8-[address] 2 and 1/2 tablets under the tongue and ALLOW to dissolve once daily 07/08/2023 Active Start: 06-17-2023 End: 04-04-2025 take 1 tablet under the tongue twice daily Buprenorphine-Naloxone 8-2 mg tablet, sublingual Discontinued 2.5 {tbl} SL TWICE A DAY June 17, 2023 12:00am April 04, 2025 10:13am Start: 06-17-2023 Buprenorphine- Naloxone Active 2.5 TABLET SL TWICE A DAY June 17, 2023 12:00am Start: 06-17-2023 Buprenorphine- Naloxone Active 2 TABLET SL June 17, 2023 12:00am cyclobenzaprine hydrochloride 10 mg oral tablet (1 source) Muscle Relaxant Start: 11-14-2021 take 10 mg by mouth three times daily Cyclobenzaprine Active 10 MG PO THREE TIMES A DAY November 14, 2021 11:31am dicyclomine hydrochloride 10 mg oral capsule (20 sources) Anticholinergic Start: 05-02-2025 End: 05-05-2025 take 1 capsule by mouth twice daily Dicyclomine 10 mg capsule Active 10 mg PO TWICE A DAY 60 May 05, 2025 11:03am Start: 02-07-2025 End: 05-02-2025 take 1 capsule by mouth twice daily Dicyclomine 10 mg capsule Discontinued 10 mg PO TWICE A DAY 60 March 21, 2025 6:53am May 02, 2025 1:29pm Start: 06-20-2024 End: 02-07-2025 take 1 capsule by mouth twice daily Dicyclomine 10 mg capsule Discontinued 10 mg PO TWICE A DAY 60 October 17, 2024 9:01am February 07, 2025 2:19pm Start: 02-25-2024 End: 06-20-2024 take 1 tablet by mouth three times daily as needed for pain Dicyclomine 20 mg tablet Discontinued 20 mg PO THREE TIMES A DAY as needed for abdominal pain 90 February 25, 2024 12:00am June 20, 2024 7:57am Start: 05-21-2023 take 1 tablet by candie twice daily dicyclomine (BENTYL) 20 mg tablet Take 1 (one) tablet (20 mg total) by mouth 2 (two) times a day . 05/21/2023 Active Start: 09-26-2022 End: 10-16-2022 take 1 tablet by mouth twice daily Dicyclomine 20 mg tablet Discontinued 20 mg PO TWICE A DAY 60 September 26, 2022 1:00am October 16, 2022 6:52pm Start: 05-21-2022 take 10 mg by mouth three times daily Dicyclomine Active 10 MG PO THREE TIMES A DAY May 21, 2022 3:11pm fluvoxaMINE maleate 100 mg oral tablet (20 sources) Serotonin Reuptake Inhibitor Start: 04-19-2018 take 1 tablet by mouth at bedtime Fluvoxamine 100 mg tablet Active 100 mg PO AT BEDTIME August 06, 2018 12:00am Comment on above: Take 1 tablet by candie th daily at bedtime. gabapentin 300 mg oral capsule (4 sources) Anti-epileptic Agent Start: 02-17-2025 End: 05-02-2025 take 1 capsule by mouth twice daily Gabapentin 300 mg capsule Active 300 mg PO TWICE A DAY 60 0 May 02, 2025 1:28pm 12 hr hyoscyamine sulfate 0.375 mg extended release oral tablet (20 sources) Start: 08-28-2023 take 0.375 mg by mouth every twelve hours Hyoscyamine Sulfate Active 0.375 MG PO Q12H 60 August 28, 2023 12:00am Start: 10-17-2022 End: 06-17-2023 take 1 tablet by mouth three times daily as needed Hyoscyamine Sulfate 0.125 mg tablet Discontinued 0.125 mg PO THREE TIMES A DAY as needed for dyspepsia 90 2 October 17, 2022 4:13pm June 17, 2023 10:14am Start: 08-26-2022 End: 09-25-2022 take 1 tablet by mouth three times daily as needed Hyoscyamine Sulfate 0.125 mg tablet Discontinued 0.125 mg PO THREE TIMES A DAY as needed for dyspepsia 90 30 0 August 26, 2022 12:00am September 24, 2022 1:00am September 25, 2022 1:04am lubiprostone 0.024 mg oral capsule (20 sources) Chloride Channel Activator Start: 06-20-2024 End: 10-04-2024 take 1 capsule by mouth twice daily as needed Lubiprostone (Amitiza) 24 mcg capsule Active 24 ug PO TWICE A DAY as needed October 04, 2024 11:40am Start: 02-19-2023 End: 02-25-2024 take 1 capsule by mouth twice daily Lubiprostone (Amitiza) 8 mcg capsule Discontinued 8 ug PO TWICE A DAY 60 2 June 19, 2023 3:57pm September 22, 2023 4:05pm magnesium oxide 500 mg oral capsule (13 sources) Start: 05-25-2024 End: 05-02-2025 take 1 capsule by mouth once daily Magnesium Oxide 500 mg capsule Active 500 mg PO DAILY 15 12May 02, 2025 1:28pm naproxen 500 mg oral tablet (1 source) Nonsteroidal Anti-inflammatory Drug Start: 11-14-2021 take 500 mg by mouth twice daily as needed Naproxen Active 500 MG PO TWICE DAILY NEEDED November 14, 2021 11:31am OLANZapine 5 mg oral tablet (20 sources) Atypical Antipsychotic Start: 06-17-2023 take 1 tablet by mouth at bedtime Olanzapine 5 mg tablet Active 5 mg PO AT BEDTIME June 17, 2023 12:00am Start: 06-17-2023 Olanzapine Act mars MG PO June 17, 2023 12:00am Start: 05-23-2021 OLANZapine (ZY PREXA) 5 MG tablet Take 0.5 (one-half) tablet (2.5 mg total) by mouth . 05/23/2021 Active Start: 05-23-2021 take 2.5 mg by mouth at bedtim e Olanzapine Active 2.5 MG PO AT BEDTIME August 06, 2021 12:00am Comment on above: Take 1 tablet by candie th once daily. ondansetron 4 mg disintegrating oral tablet (20 sources) Serotonin-3 Receptor Antagonist Start: 09-01-20 take 1 tablet by mouth every eight hours as needed for nausea and vomiting Ondansetron 4 mg tablet,disintegrati ng Active 4 mg PO Q8H as needed for nausea and vomiting September 01, 2023 12:00am Start: 06-19-2023 End: 09-01-2023 take 1 tablet by mouth every eight hours as needed for nausea and vomiting Ondansetron Hcl 4 mg tablet Discontinued 4 mg PO Q8H as needed for nausea and vomiting June 19, 2023 12:00am September 01, 2023 11:12am Start: 05-21-2022 End: 06-30-2022 take 1 tablet by mouth every eight hours as needed for nausea Ondansetron 4 mg tablet,disintegrating Discontinued 4 mg PO EVERY 8 HOURS NEEDED as needed for Nausea 10 May 21, 2022 12:00am June 30, 2022 4:52pm Start: 03-04-2022 End: 06-17-2023 Ondansetron 4 mg tablet,disintegrating Discontinued 4 mg PO EVERY 6 HOURS 90 2 July 17, 2022 12:00am June 17, 2023 10:14am Take every six hours for one week, then reduce to as needed. Start: 04-30-2021 End: 07-17-2022 take 1 tablet by mouth every eight hours Ondansetron Hcl (Zofran) 4 mg tablet Discontinued 4 mg PO Q8H August 06, 2021 12:00am July 17, 2022 5:04pm Comment on above: Take 1 tablet by candie th as needed. Take 1 tablet by candie th every 6 hours as needed for nausea/vomiting. OXcarbazepine 600 mg oral tablet (20 sources) Anti-epileptic Agent Start: take 2 tablets by mouth at bedtime Oxcarbazepine 600 mg tablet Active 1200 mg PO AT BEDTIME April 04, 2025 10:11am Start: 07-10-2023 OXcarbazepine (TRILEPTAL) 600 MG tablet 07/10/2023 Active Start: 08-06-2018 End: 04-04-2025 Oxcarbazepine 600 mg tablet Discontinued 900 mg PO AT BEDTIME August 06, 2018 12:00am April 04, 2025 10:13am Start: 08-06-2018 take 900 mg by mouth at bedtim e Oxcarbazepine Active 900 MG PO AT BEDTIME August 06, 2018 12:00am Start: 04-19-2018 take 1.5 tablets by mouth once daily OXcarbazepine (TRILEPTAL) 600 mg tablet Take 1.5 tablets by mouth once daily. 900 MG daily. 0 04/19/2018 Active Start: 11-11-2013 End: 08-06-2018 Trileptal Discontinued [facility] 2012 6:35pm August 06, 2018 2:29pm Start: 11-11-2013 End: 08-06-2018 Trileptal Discontinued [facility] 2012 12:00am August 06, 2018 1:29pm Start: 11-11-2013 End: 08-06-2018 Trileptal Discontinued [facility] 2012 1:00am August 06, 2018 2:29pm Comment on above: Take 1.5 tablets by mouth once daily. 900 MG daily. pantoprazole 20 mg delayed release oral tablet (20 sources) Proton Pump Inhibitor Start: End: take 1 tablet by mouth twice daily Pantoprazole 20 mg tablet,delayed release (DR/EC) Active 20 mg PO TWICE A DAY 180 May 17, 2025 7:44am Start: 03-08-2024 End: 02-07-2025 take 1 tablet by mouth every twelve hours Pantoprazole 20 mg tablet,delayed release (DR/EC) Discontinued 20 mg PO Q12H 180 June 18, 2024 11:10am February 07, 2025 2:19pm Start: 07-15-2022 End: 06-17-2023 take 1 tablet by mouth twice daily Pantoprazole 40 mg tablet,delayed release (DR/EC) Discontinued 40 mg PO TWICE A DAY 60 July 15, 2022 11:17am June 17, 2023 10:14am Start: 06-30-2022 End: 07-15-2022 take 1 tablet by mouth once daily Pantoprazole 40 mg tablet,delayed release (DR/EC) Discontinued 40 mg PO DAILY 30 3 June 30, 2022 4:51pm July 15, 2022 11:26am Start: 08-28-2021 take 40 mg by mouth twice daily Pantoprazole Active 40 MG PO TWICE A DAY 60 August 28, 2021 3:35pm predniSONE 20 mg oral tablet (20 sources) Start: 05-11-2025 take 1 tablet by mouth once daily Prednisone 20 mg tablet Active 20 mg PO DAILY 30 0 May 11, 2025 3:23pm Start: 05-25-2024 End: 05-02-2025 take 1 tablet by mouth once daily Prednisone 20 mg tablet Discontinued 20 mg PO DAILY 30 2 November 28, 2024 7:53am February 17, 2025 11:31am Start: 12-23-2023 End: 01-12-2024 take 2 tablets by mouth once daily Prednisone 20 mg tablet Discontinued 40 mg PO DAILY 10 5 0 January 07, 2024 1:00am January 11, 2024 1:00am January 12, 2024 1:05am Chronic obstructive pulmonary disease Chronic obstructive pulmonary disease, unspecified Start: 12-23-2023 End: 01-12-2024 take 40 mg by mouth once daily Prednisone Discontinued 40 MG PO DAILY 10 5 January 07, 2024 1:00am January 12, 2024 1:05am Start: 12-23-2022 End: 04-24-2023 take 1 tablet by mouth once daily Prednisone 20 mg tablet Discontinued 20 mg PO DAILY 30 December 23, 2022 1:00am April 24, 2023 5:42pm Start: 10-16-2022 End: 02-19-2023 Prednisone 10 mg tablet Disc ontinued 0 PO As Directed 40 0 November 27, 2022 11:46am February 19, 2023 12:07pm take four for one week, take three for one week, take two for one week, take one for one week, take 0.5 for one week then stop. Start: 10-16-2022 End: 02-19-2023 Prednisone Discontinued 0 PO As Directed November 27, 2022 10:46am February 19, 2023 11:07am take four for one week, take three for one week, take two for one week, take one for one week, take 0.5 for one week then stop. Start: 08-28-2021 take 20 mg by mouth once daily Prednisone Active 20 MG PO DAILY August 28, 2021 3:35pm propranolol hydrochloride 20 mg oral tablet (20 sources) beta-Adrenergic Anders Start: 08-06-2018 take 1 tablet by mouth twice daily Propranolol 20 mg tablet Active 20 mg PO TWICE A DAY August 06, 2018 12:00am Comment on above: Take 1 tablet by candie th twice daily. 72 hr scopolamine 0.0139 mg/hr transdermal system (1 source) Anticholinergic Start: 07-15-2022 Scopolamine Base Active 1 PATCH TD Q3D July 15, 2022 12:00am SUMAtriptan 50 mg oral tablet (3 sources) Serotonin-1b and Serotonin-1d Receptor Agonist Start: 04-04-2025 take 1 tablet by mouth every two hours as needed Sumatriptan Succinate 50 mg tablet Active 50 mg PO Q2H as needed April 04, 2025 12:00am 60 actuat testosterone 20.25 mg/actuat topical gel (2 sources) Androgen Start: 04-06-2025 Testosterone 20.25 mg/1.25 gram (1.62 %) gel in metered-dose pump Active 1 NMA TOPICAL daily 75 2 April 06, 2025 12:00am apply 1 pump amount over max area of ONE upper arm and shoulder traMADol hydrochloride 50 mg oral tablet (1 source) Opioid Agonist Start: 07-15-2022 take 50 mg by mouth twice daily Tramadol Active 50 MG PO TWICE A DAY July 15, 2022 12:00am valACYclovir 500 mg oral tablet (4 sources) Herpesvirus Nucleoside Analog DNA Polymerase Inhibitor, Herpes Simplex Virus Nucleoside Analog DNA Polymerase Inhibitor, Herpes Zoster Virus Nucleoside Analog DNA Polymerase Inhibitor Start: 12-27-2024 take 1 tablet by mouth twice daily Valacyclovir (Valtrex) 500 mg tablet Active 500 mg PO TWICE A DAY 6 December 27, 2024 1:00am at onset of symptoms divalproex sodium 500 mg delayed release oral tablet (4 sources) Mood Stabilizer, Anti-epileptic Agent Start: 10-04-2024 take 1 tablet by mouth twice daily Divalproex (Depakote) 500 mg tablet,delayed release (DR/EC) Active 500 mg PO TWICE A DAY October 04, 2024 1:00am Completed/Discontinued Medications Medication Drug Class(es) Dates Sig (Normalized) Sig (Original) acetaminophen 500 mg oral tablet (5 sources) Start: 06-10-2018 take 1 tablet by mouth every eight hours as needed for pain acetaminophen (TYLENOL EXTRA STRENGTH) 500 mg tablet Indications: Viral URI with cough Take 1 tablet by mouth every 8 hours as needed for Pain. 30 tablet 0 06/10/2018 Active Comment on above: Take 1 tablet by canide th every 8 hours as needed for Pain. Albuterol 90 mcg/actuation aerosol (4 sources) Start: 09-01-2023 End: 03-07-2024 Albuterol 90 mcg/actuation aerosol Discontinued 90 ug INHALATION NEEDED September 01, 2023 12:00am March 07, 2024 11:07am SHORTNESS OF BREATH Start: 09-01-2023 End: 03-07-2024 Albuterol 90 mcg/actuation a erosol Discontinued 90 ug INHALATION NEEDED September 01, 2023 12:00am March 07, 2024 11:07am azaTHIOprine 50 mg oral tablet (20 sources) Purine Antimetabolite Start: 06-27-2023 End: 09-13-2023 take 2 tablets by mouth once daily azaTHIOprine (IMURAN) 50 mg tablet Take 2 (two) tablets (100 mg total) by mouth daily . 0 06/27/2023 09/13/2023 Discontinued Start: 11-13-2022 End: 08-28-2023 take 100 mg by mouth once daily Azathioprine Discontin ued 100 MG PO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 Dictation workstation: [id number] [facility] Work Phone: [facility] Work Phone: Gastroenterology Visit Repor ton 05-23-2025 Gastroenterology Visit Report [facility] [address] [place] [address] OFFICE VISIT Date of Service: 05/23/25 MR#: [id number] Acct: [id number] Name: JOSE MCNAMARA MARLA Rep #: [id number] : 1980 Provider: Keny Friend, DO Age/Sex: 45/M Location: [facility] Status: Signed Intake Vital Signs 12/27/24 10:26 04/04/25 10:04 Height 5 ft 9 in 5 ft 9 in Weight: 146 lb BMI 21.5 BP 102/69 Blood Pressure Location Lt brachial Position Sitting Pulse 68 Pulse Source Monitor Pulse Oximetry (%) 93 Oxygen Delivery Method room air Intake Visit Reasons: 3 M FU Allergies Penicillins Allergy (Unknown, Verified 04/04/25 10:07) Rash Medications ???Medication ???Instructions ???Recorded ???Confirmed ???Type fluvoxamine 100 mg tablet 100 mg PO QHS 08/06/18 05/23/25 Hi story propranolol 20 mg tablet 20 mg PO BID 08/06/18 05/23/25 His tory olanzapine 5 mg tablet 5 mg PO QHS 06/17/23 05/23/25 Hist ory ondansetron 4 mg disintegrating 4 mg PO Q8H PRN nausea and 3 05/23/25 Rx tablet vomiting #30 tabs albuterol sulfate 90 mcg/actuation 2 puff inhalation Q6H PRN 05/23/25 Rx aerosol inhaler shortness of breath or wheezing #6.7 grams divalproex 500 mg tablet,delayed 500 mg PO BID 10/04/24 05/23/25 Hi story release (Depakote) lubiprostone 24 mcg capsule 24 mcg PO BID PRN 10/04/24 5 History (Amitiza) valacyclovir 500 mg tablet 500 mg PO BID #6 tabs 12/27/2407/10 Rx (Valtrex) sucralfate 1 gram tablet 1 g PO Q6H #120 TABLETS 02/17/25 0 05/23/25 Rx alprazolam 1 mg tablet 1 mg PO BID PRN anxiety 04/04/25 0 05/23/25 History buprenorphine 8 mg-naloxone 2 mg 1 tab sublingual TID 04/04/2507/10 History sublingual tablet oxcarbazepine 600 mg tablet 1,200 mg PO QHS 04/04/25 05/23/25 History sumatriptan succinate 50 mg tablet 50 mg PO Q2H PRN 04/04/25 History testosterone 1 pump topical QDAY #75 grams 05/2 2/25 07/08/25 Rx gabapentin 300 mg capsule 300 mg PO BID #60 caps 05/02/25 Rx magnesium oxide 500 mg capsule 500 mg PO DAILY #30 caps 05/02/25 05/23/25 Rx dicyclomine 10 mg capsule 10 mg PO BID #60 caps 05/05/2507/10 Rx prednisone 20 mg tablet 20 mg PO DAILY #30 tabs 05/11/25 0 05/23/25 Rx pantoprazole 20 mg tablet,delayed 20 mg PO BID #180 TABLETS 5 05/23/25 Rx release PFSH Medical History (Updated 05/23/25 @ 12:13 by Velia Adamson) Urinary hesitancy Erectile dysfunction Low testosterone in male Pain Crohn's disease Sjogren's disease Chest congestion Loss of hearing Wears glasses Marijuana use Alcohol use Substance abuse Injury of back Migraine headache Dietary restriction Difficulty swallowing COPD (chronic obstructive pulmonary disease) History of edema History of echocardiogram Enlarged heart History of diverticulitis Seizure History of blood transfusion Celiac disease Positive GETACHEW (antinuclear antibody) GERD (gastroesophageal reflux disease) Bipolar disorder Depression Anxiety Arthritis Injury of head and neck Smoker Hoarseness Abdominal pain Enlarged heart Migraines Ulcer Hearing problem Back problem Alcohol abuse Infective endocarditis Drug abuse Surgical History Hx of colonoscopy History of esophagogastroduodenoscop y (EGD) Hx of hernia repair History of facial surgery Family History Uncle Diabetes Aunt Diabetes Father Heart disease Alcohol abuse Enlarged heart Son Benign brain tumor Seizures Grandmother Seizures Other Anxiety Social History household members: friend(s) current occupational status: employed current occupation: [employer], on FMLA currently due to abdominal problems Smoking Status: Current every day smoker tobacco type: cigarettes Tobacco: How many years used: 33 Electronic Cigarette Use: not used second hand exposure: No quit status: considering quitting alcohol intake: former year quit: 2010 substance use type: former substance user Date of last use: heroin - 2018, marijuana and sedatives caffeine: Yes what type of physical activity do you participate in: walking and weight training frequency: 1-2 times per week seatbelt use: always do you feel safe at home: Yes HPI HPI Details: JOSE MCNAMARA, is a 45 M who presents to the office today for follow up. *BGI established 08.06.21 for evaluation of hepatitis C, esophageal dysphagia, GERD. Biochemical ANCA, IgGA, DARRIAN, CBC, ESR, CMP, LDH CRP H12.20, SS-B IgG H1.7, celiac TTG H5, IgM H202, IgE L<2 HCV ab reactive HCV viral load HCV not detected HCV genotype insufficient viral c (more content not included)... Normal [facility] DHEA Sulfateon 04-06-2025 DHEA SULFATE 11.1 ug/dL Low 102.6-416.3 [facility] Comment on above: Order Comment: N Performed By: #### L 3300.1500, L501.9910, L509.6001, L3100.5400, L3100.5055 ####[facility] [id number] [place], [address] PROLACTIN 4465on 04-06-2025 PROLACTIN 11.4 ng/mL Normal 3.9-22.7 [facility] Comment on above: Result Comment: Perf ormed at: [facility] [address] [id number] Office Services Clerk: Carlos Eduardo Teague PhD, Phone: [phone] Performed By: #### L 3300.1500, L501.9910, L509.6001, L3100.5400, L3100.5055 ####[facility] [id number] [place], [place], [phone] Endocrinology Visit Reporton 04-04-2025 Endocrinology Visit Report [facility] [address] [place] [id number] OFFICE VISIT Date of Service: 04/04/25 MR#: [id number] Acct: [id number] Name: JOSE MCNAMARA Rep #: [id number] : 1980 Provider: Kassidy Niño Age/Sex: 44/M Location: [facility] Status: Signed Intake Vital Signs 12/27/24 10:26 04/04/25 10:04 Height 5 ft 9 in 5 ft 9 in Weight: 146 lb BMI 21.5 BP 102/69 Blood Pressure Location Lt brachial Position Sitting Pulse 68 Pulse Source Monitor Pulse Oximetry (%) 93 Oxygen Delivery Method room air Intake Visit Reasons: Low Testosterone Chief Complaint: New Patient - Low Testosterone Fisher Weir Required: No Accompanied by: Self Is patient in pain?: Yes (Abdominal) Pain scale (1-10): 3 Allergies Penicillins Allergy (Unknown, Verified 04/04/25 10:07) Rash Medications ???Medication ???Instructions ???Recorded ???Confirmed ???Type fluvoxamine 100 mg tablet 100 mg PO QHS 08/06/18 04/04/25 Hi story propranolol 20 mg tablet 20 mg PO BID 08/06/18 04/04/25 His tory olanzapine 5 mg tablet 5 mg PO QHS 06/17/23 04/04/25 Hist ory ondansetron 4 mg disintegrating 4 mg PO Q8H PRN nausea and 3 04/04/25 Rx tablet vomiting #30 tabs albuterol sulfate 90 mcg/actuation 2 puff inhalation Q6H PRN 04/04/25 Rx aerosol inhaler shortness of breath or wheezing #6.7 grams divalproex 500 mg tablet,delayed 500 mg PO BID 10/04/24 04/04/25 Hi story release (Depakote) lubiprostone 24 mcg capsule 24 mcg PO BID PRN 10/04/24 5 History (Amitiza) valacyclovir 500 mg tablet 500 mg PO BID #6 tabs 12/27/24 Rx (Valtrex) gabapentin 300 mg capsule 300 mg PO BID #60 caps 02/17/25 Rx magnesium oxide 500 mg capsule 500 mg PO DAILY #30 caps 02/17/25 04/04/25 Rx pantoprazole 20 mg tablet,delayed 20 mg PO BID #180 TABLETS 5 04/04/25 Rx release prednisone 20 mg tablet 20 mg PO DAILY #30 tabs 02/17/25 0 04/04/25 Rx sucralfate 1 gram tablet 1 g PO Q6H #120 TABLETS 02/17/25 0 04/04/25 Rx dicyclomine 10 mg capsule 10 mg PO BID #60 caps 03/21/25 Rx alprazolam 1 mg tablet 1 mg PO BID PRN anxiety 04/04/25 0 04/04/25 History buprenorphine 8 mg-naloxone 2 mg 1 tab sublingual TID 04/04/25 05/2 History sublingual tablet oxcarbazepine 600 mg tablet 1,200 mg PO QHS 04/04/25 04/04/25 History sumatriptan succinate 50 mg tablet 50 mg PO Q2H PRN 04/04/25 History PFSH Medical History (Updated 04/04/25 @ 11:[address] Bharath Pires MD) Urinary hesitancy Erectile dysfunction Low testosterone in male Pain Crohn's disease Sjogren's disease Chest congestion Loss of hearing Wears glasses Marijuana use Alcohol use Substance abuse Injury of back Migraine headache Dietary restriction Difficulty swallowing COPD (chronic obstructive pulmonary disease) History of edema History of echocardiogram Enlarged heart History of diverticulitis Seizure History of blood transfusion Celiac disease Positive GETACHEW (antinuclear antibody) GERD (gastroesophageal reflux disease) Bipolar disorder Depression Anxiety Arthritis Injury of head and neck Smoker Hoarseness Abdominal pain Enlarged heart Migraines Ulcer Hearing problem Back problem Alcohol abuse Infective endocarditis Drug abuse Surgical History Hx of colonoscopy History of esophagogastroduodenoscop y (EGD) Hx of hernia repair History of facial surgery Family History Uncle Diabetes Aunt Diabetes Father Heart disease Alcohol abuse Enlarged heart Son Benign brain tumor Seizures Grandmother Seizures Other Anxiety Social History household members: friend(s) current occupational status: employed current occupation: [employer], on FMLA currently due to abdominal problems Smoking Status: Current every day smoker tobacco type: cigarettes Tobacco: How many years used: 33 Electronic Cigarette Use: not used second hand exposure: No quit status: considering quitting alcohol intake: former year quit: 2010 substance use type: former substance user Date of last use: heroin - 2018, marijuana and sedatives caffeine: Yes what type of physical activity do you participate in: walking and weight training frequency: 1-2 times per week seatbelt use: always do you feel safe at home: Yes HPI HPI Chief Complaint: New Patient - Low Testosterone Details: JOSE MCNAMARA, is a 44 M who presents to the office today for evaluation and management of low testosterone. He has complicated medical history that includes, bipolar disorder, (more content not included)... Normal [facility] FSH and LHon 04-04-2025 FSH 10.5 mIU/mL Normal [facility] Comment on above: Result Comment: FEMA LE: Follicular: 1.4 - 18.1 mIU/mL Midcycle: 3.4 - 33.4 mIU/mL Luteal: 1.5 - 9.1 mIU/mL Post Menopause: 23.0 - 116.3 mIU/mL MALE: 1.4 - 18.1 mIU/mL NORMAL REFERENCE RANGES FEMALE FOLLICULAR 2.3 - 12.6 mIU/mL MID-CYCLE PEAK 5.2 - 17.5 mIU/mL LUTEAL 1.7 - 12.9 mIU/mL POST-MENOPAUSAL ON MHT 5.9 - 72.8 mIU/mL NOT ON MHT 12.7 - 132.2 mlU/mL MALE 0.7 - 10.8 mIU/mL Performed By: #### L 3300.1500, L501.9910, L509.6001, L3100.5400, L3100.5055 ####[facility] [id number] [place], [place], [phone] LH 6.4 mIU/mL Normal [facility] Comment on above: Result Comment: FEMA LE: Follicular: 1.9-12.5 mIU/mL Midcycle: 8.7-76.3 mIU/mL Luteal: 0.5-16.9 mIU/mL Post Menopause: 15.9-54.0 mIU/mL MALE: 20-70 Years: 1.5-9.3 mIU/mL >70 Years: 3.1-34.6 mIU/mL Performed By: #### L 3300.1500, L501.9910, L509.6001, L3100.5400, L3100.5055 ####[facility] [id number] [place], [address] L509.6001on 04-04-2025 CORTISOL 1.98 ug/dL Low 6.02-18.40 [facility] Comment on above: Performed By: #### L 3300.1500, L501.9910, L509.6001, L3100.5400, L3100.5055 ####[facility] [id number] [place], [place], [phone] LH ser/plasOrdered By: Bharath Pires on 04-04-2025 Lutropin Qn 6.4 m[IU]/mL [facility] Comment on above: FEMALE:Follicular: 1 .9-12.5 mIU/mLMidcycle: 8.7-76.3 mIU/mLLuteal: 0.5-16.9 mIU/mLPost Menopause: 15.9-54.0 mIU/mLMALE:20-70 Years: 1.5-9.3 mIU/mL>70 Years: 3.1-34.6 mIU/mL PSA,Total - Annual Screenon 04-04-2025 PSA,TOT SCREEN 0.22 ng/mL Normal 0.02-4.00 [facility] Comment on above: Result Comment: This test was performed using the [employer] tPSA method. Measured values of a patient??sample can vary depending on the testing procedure used. PSA values determined on patient samples by different testing procedures cannot be used interchangeably. If there is a change in PSA assays while monitoring therapy, sequential testing should be performed to confirm baseline values. Performed By: #### L 3300.1500, L501.9910, L509.6001, L3100.5400, L3100.5055 ####[facility] [id number] [place], [place], [phone] Serum or plasma cortisol manuela surement (mass/volume)Ordered By: Bharath Pires on 04-04-2025 Cortisol [Mass/Vol] 1.98 ug/dL Low 6.02-18.40 [facility] Serum or plasma prolactin me asurement (mass/volume)Ordered By: Bharath Pires on 04-04-2025 Prolactin [Mass/Vol] 11.4 ng/mL 3.9-22.7 [facility] Comment on above: Performed at: - [address] [id number] Director: Carlos Eduardo Teague PhD, Phone: [phone] Gastroenterology Visit Repor armand 02-17-2025 Gastroenterology Visit Report [facility] [address] [place] [address] OFFICE VISIT Date of Service: 02/17/25 MR#: [id number] Acct: [id number] Name: JOSE MCNAMARA Rep #: [id number] : 1980 Provider: Keny Guevara DO Age/Sex: 44/M Location: [facility] Status: Signed Intake Vital Signs 12/27/24 10:26 Height 5 ft 9 in Weight: 149 lb 2 oz BMI 22.0 BP 102/62 Blood Pressure Location Lt brachial Position Sitting Respiration 16 Pulse 68 Pulse Source Monitor Temp 97.3 F L Temp Source Temporal Pulse Oximetry (%) 93 Oxygen Delivery Method room air Intake Visit Reasons: Abdominal pain Allergies Penicillins Allergy (Unknown, Verified 12/27/24 10:22) Rash Medications ???Medication ???Instructions ???Recorded ???Confirmed ???Type fluvoxamine 100 mg tablet 100 mg PO QHS 08/06/18 02/17/25 Hi story oxcarbazepine 600 mg tablet 900 mg PO QHS 08/06/18 02/17/25 Hi story propranolol 20 mg tablet 20 mg PO BID 08/06/18 02/17/25 His tory buprenorphine 8 mg-naloxone 2 mg 2.5 tab sublingual BID 06/17/23 History sublingual tablet olanzapine 5 mg tablet 5 mg PO QHS 06/17/23 02/17/25 Hist ory ondansetron 4 mg disintegrating 4 mg PO Q8H PRN nausea and 3 02/17/25 Rx tablet vomiting #30 tabs albuterol sulfate 90 mcg/actuation 2 puff inhalation Q6H PRN 02/17/25 Rx aerosol inhaler shortness of breath or wheezing #6.7 grams divalproex 500 mg tablet,delayed 500 mg PO BID 10/04/24 02/17/25 Hi story release (Depakote) lubiprostone 24 mcg capsule 24 mcg PO BID PRN 10/04/24 5 History (Amitiza) valacyclovir 500 mg tablet 500 mg PO BID #6 tabs 12/27/2403/10 Rx (Valtrex) ciprofloxacin HCl 250 mg tablet 250 mg PO Q12H #20 tabs 12/28/24 0 02/17/25 Rx metronidazole 500 mg tablet 500 mg PO Q12H #20 tabs 12/28/24 0 02/17/25 Rx potassium chloride 20 mEq oral 40 meq PO ONCE #2 ea 01/12/250 03/10 Rx packet dicyclomine 10 mg capsule 10 mg PO BID #60 caps 02/07/2503/10 Rx alprazolam 1 mg tablet 1 mg PO BID PRN anxiety 1 month 02/17/25 Rx #60 tabs gabapentin 300 mg capsule 300 mg PO BID #60 caps 02/17/25 Rx magnesium oxide 500 mg capsule 500 mg PO DAILY #30 caps 02/17/25 02/17/25 Rx pantoprazole 20 mg tablet,delayed 20 mg PO BID #180 TABLETS 5 02/17/25 Rx release prednisone 20 mg tablet 20 mg PO DAILY #30 tabs 02/17/25 0 02/17/25 Rx sucralfate 1 gram tablet 1 g PO Q6H #120 TABLETS 02/17/25 0 02/17/25 Rx PFSH Medical History (Updated 12/27/24 @ 11:[address] Josselyn Galindo MD) Pain Crohn's disease Sjogren's disease Chest congestion Loss of hearing Wears glasses Marijuana use Alcohol use Substance abuse Injury of back Migraine headache Dietary restriction Difficulty swallowing COPD (chronic obstructive pulmonary disease) History of edema History of echocardiogram Enlarged heart History of diverticulitis Seizure History of blood transfusion Celiac disease Positive GETACHEW (antinuclear antibody) GERD (gastroesophageal reflux disease) Bipolar disorder Depression Anxiety Arthritis Injury of head and neck Smoker Hoarseness Abdominal pain Enlarged heart Migraines Ulcer Hearing problem Back problem Alcohol abuse Infective endocarditis Drug abuse Surgical History Hx of colonoscopy History of esophagogastroduodenoscop y (EGD) Hx of hernia repair History of facial surgery Family History Uncle Diabetes Aunt Diabetes Father Heart disease Alcohol abuse Enlarged heart Son Benign brain tumor Seizures Grandmother Seizures Other Anxiety Social History household members: friend(s) current occupational status: employed current occupation: [employer], on FMLA currently due to abdominal problems Smoking Status: Current every day smoker tobacco type: cigarettes Electronic Cigarette Use: not used quit status: considering quitting alcohol intake: former year quit: 2010 substance use type: former substance user Date of last use: heroin - 2018, marijuana and sedatives caffeine: Yes what type of physical activity do you participate in: walking and weight training frequency: 1-2 times per week seatbelt use: always do you feel safe at home: Yes HPI HPI Details: JOSE MCNAMARA, is a 44 M who presents to the office today for follow up. *BGI established 08.06.21 for evaluation of hepatitis C, esophageal dysphagia, GERD. Biochemical ANCA, IgGA, DARRIAN, CBC, ESR, CMP, LDH CRP H12.20, SS-B IgG H1.7, celiac TTG H5, IgM H202, IgE L<2 HCV ab reactive HCV viral load HCV n (more content not included)... Normal [facility] Testosterone, Total / Freeon 01-18-2025 TESTOSTER,FREE 4.69 ng/dL Abnormal 5.00-21.00 [facility] Comment on above: Order Comment: N Performed By: #### L 3100.5310 ####[facility] [address] [place], [address] TESTOSTER,TOTAL 144 ng/dL Low 264-916 [facility] Comment on above: Order Comment: N Result Comment: Adul t male reference interval is based on a population of healthy nonobese males (BMI <30) between 19 and 39 years old. rick Lindquist.al. JCEM 2017,102;0906-0124. PMID: [id number]. Performed By: #### L 3100.5310 ####[facility] [address] [place], [place], [address] TESTOSTERONE,%F 3.26 Normal 1.50-4.20 [facility] Comment on above: Order Comment: N Result Comment: Perf ormed at: [employer] [address] [id number] Office Services Clerk: Carlos Eduardo Teague PhD, Phone: [phone] Performed at: [facility] [address] [id number] Office Services Clerk: Debby Cruz MD, Phone: [phone] Performed By: #### L 3100.5310 ####[facility] [address] [place], [place], [phone] Free testosterone percentage Ordered By: Josselyn Galindo on 01-13-2025 Testosterone Free/Testosterone.tota l [Mass fraction] 3.26 % 1.50-4.20 [facility] Comment on above: Performed at: [facility] [address] [id number] Director: Carlos Eduardo Teague PhD, Phone: [phone] at: [employer] [id number] Director: Debby Cruz MD, Phone: [phone] Serum or plasma free testost erone measurement (mass/volume)Ordered By: Josselyn Galindo on 01-13-2025 Testosterone Free [Mass/Vol] 4.69 ng/dL Low 5.00-21.00 [facility] Testosterone Free [Mass/Vol] Ordered By: Josselyn Galindo on 01-13-2025 Free Testosterone 4.69 ng/dL Low 5.00-21.00 [facility] Testosterone Free/Testostero ne.total [Mass fraction]Ordered By: Josselyn Galindo on 01-13-2025 Percent Free Testosterone 3.26 % 1.50-4.20 [facility] Comment on above: Performed at: [facility] [address] [id number] Director: Carlos Eduardo Tegaue PhD, Phone: [phone] at: [facility] [id number] Director: Debby Cruz MD, Phone: [phone] Testosterone, totalOrdered B y: Josselyn Galindo on 01-13-2025 Testosterone [Mass/Vol] 144 ng/dL Low 264-916 [facility] Comment on above: Adult male reference interval is based on a population ofhealthy nonobese males (BMI <30) between 19 and 39 yearsold. rick Lindquist.al. JCEM 2017,102;9772-7577. PMID:[id number]. Testosterone Freeon 01-10-20 25 TESTOSTER FREE 0.9 pg/mL Abnormal 6.8-21.5 [facility] Comment on above: Result Comment: Perf ormed at: [facility] [id number] Office Services Clerk: Debby Cruz MD, Phone: [phone] Performed By: #### L 500.4100, L503.0105, L501.9985, L500.4050, L3400.4800, L100.0100, L506.1000 ####[facility] [address] [place], [place], [id number] 15-XM-Nbfgkty DOrdered By: Iris Galindo on 01-05-2025 Vitamin D 25-Hydroxy 27.3 ng/mL [facility] Comment on above: Vitamin D 25(OH) Sta tus Range Deficiency <20 ng/mL (50nmol/L) Insufficiency 20 - 30 ng/mL (50 - 75 nmol/L) Sufficiency 30 - 100 ng/mL (75 - 250 nmol/L) Toxicity >100 ng/mL (>250 nmol/L) Absolute lymphocyte countOrd ered By: Josselyn Galindo on 01-05-2025 Lymphocytes Auto (Unsp spec) [#/Vol] 2.39 10*3/uL 0.83-4.51 [facility] Absolute neutrophil countOrd ered By: Josselyn Galindo on 01-05-2025 Neutrophils (Bld) [#/Vol] 5.2 10*3/uL 2.0-7.7 [facility] Albumin to globulin ratioOrd ered By: Josselyn Galindo on 01-05-2025 Albumin/Globulin [Mass ratio] 0.9 {ratio} 0.9-2.4 [facility] Automated lymphocyte count a s percentage of total leukocytesOrdered By: Josselyn Galindo on 01-05-2025 Lymphocytes/100 WBC Auto (Unsp spec) 26.8 % 19-41 [facility] Basophil percentageOrdered B y: Josselyn Galindo on 01-05-2025 Basophils/100 WBC (Bld) 0.6 % 0-1 [facility] Bilirubin, totalOrdered By: Josselyn Galindo on 01-05-2025 Bilirubin [Mass/Vol] 0.10 mg/dL Low 0.20-1.00 [facility] Comment on above: For patients on eltr ombopag therapy, use of Dimension [place] TBIL is not recommended. Blood urea nitrogen (BUN)/cr eatinine ratioOrdered By: Josselyn Galindo on 01-05-2025 Urea nitrogen/Creatinine [Mass ratio] 24.0 mg/mg High - [facility] CBC W/Diff, Automatedon 12-18 Absolute Lymph 2.39 X10 3/uL Normal 0.83-4.51 [facility] Comment on above: Performed By: #### L 500.4100, L503.0105, L501.9985, L500.4050, L3400.4800, L100.0100, L506.1000 ####[facility] [address] [place], [address] Absolute Neut 5.2 X10 3/uL Normal 2.0-7.7 [facility] Comment on above: Performed By: #### L 500.4100, L503.0105, L501.9985, L500.4050, L3400.4800, L100.0100, L506.1000 ####[facility] [address] [place], [address] Basophils/100 WBC (Bld) 0.6 % Normal 0-1 [facility] Comment on above: Performed By: #### L 500.4100, L503.0105, L501.9985, L500.4050, L3400.4800, L100.0100, L506.1000 ####[facility] [address] [place], [address] Eosinophils/100 WBC (Bld) 2.2 % Normal 0-5 [facility] Comment on above: Performed By: #### L 500.4100, L503.0105, L501.9985, L500.4050, L3400.4800, L100.0100, L506.1000 ####[facility] [address] [place], [address] Erythrocyte distribution width (RBC) [Ratio] 13.4 % Normal 11.6-14.6 [facility] Comment on above: Performed By: #### L 500.4100, L503.0105, L501.9985, L500.4050, L3400.4800, L100.0100, L506.1000 ####[facility] [address] [place], [address] Hematocrit (Bld) [Volume fraction] 46.1 % Normal 40-54 [facility] Comment on above: Performed By: #### L 500.4100, L503.0105, L501.9985, L500.4050, L3400.4800, L100.0100, L506.1000 ####[facility] [address] [place], [address] Hemoglobin (Bld) [Mass/Vol] 14.2 g/dL Normal 13.0-16.5 [facility] Comment on above: Performed By: #### L 500.4100, L503.0105, L501.9985, L500.4050, L3400.4800, L100.0100, L506.1000 ####[facility] [address] [place], [address] IG% 1.100 High 0.0-0.9 [facility] Comment on above: Result Comment: IG% - Immature Granulocytes (promyelocytes, myelocytes and metamyelocytes) > 1% indicates that a LEFT SHIFT is Present. Performed By: #### L 500.4100, L503.0105, L501.9985, L500.4050, L3400.4800, L100.0100, L506.1000 ####[facility] [address] [place], [address] Lymphocytes/100 WBC (Bld) 26.8 % Normal 19-41 [facility] Comment on above: Performed By: #### L 500.4100, L503.0105, L501.9985, L500.4050, L3400.4800, L100.0100, L506.1000 ####[facility] [address] [place], [address] MCH (RBC) [Entitic mass] 29.2 pg Normal 27.0-32.0 [facility] Comment on above: Performed By: #### L 500.4100, L503.0105, L501.9985, L500.4050, L3400.4800, L100.0100, L506.1000 ####[facility] [address] [place], [address] MCHC (RBC) [Mass/Vol] 30.8 g/dL Low 32-36 [facility] Comment on above: Performed By: #### L 500.4100, L503.0105, L501.9985, L500.4050, L3400.4800, L100.0100, L506.1000 ####[facility] [address] [place], [address] MCV (RBC) [Entitic vol] 94.7 fL High 80-94 [facility] Comment on above: Performed By: #### L 500.4100, L503.0105, L501.9985, L500.4050, L3400.4800, L100.0100, L506.1000 ####[facility] [address] [place], [address] Monocytes/100 WBC (Bld) 11.4 % High 0-10 [facility] Comment on above: Performed By: #### L 500.4100, L503.0105, L501.9985, L500.4050, L3400.4800, L100.0100, L506.1000 ####[facility] [address] [place], [address] Neutrophils/100 WBC (Bld) 57.9 % Normal 47-70 [facility] Comment on above: Performed By: #### L 500.4100, L503.0105, L501.9985, L500.4050, L3400.4800, L100.0100, L506.1000 ####[facility] [address] [place], [address] Nucleated RBC (Bld) [#/Vol] 0 10*3/uL Normal 0-5 [facility] Comment on above: Performed By: #### L 500.4100, L503.0105, L501.9985, L500.4050, L3400.4800, L100.0100, L506.1000 ####[facility] [address] [place], [address] Platelet mean volume (Bld) [Entitic vol] 10.8 fL Normal 6.2-12.0 [facility] Comment on above: Performed By: #### L 500.4100, L503.0105, L501.9985, L500.4050, L3400.4800, L100.0100, L506.1000 ####[facility] [address] [place], [address] Platelets (Bld) [#/Vol] 182 10*3/uL Normal 150-450 [facility] Comment on above: Performed By: #### L 500.4100, L503.0105, L501.9985, L500.4050, L3400.4800, L100.0100, L506.1000 ####[facility] [address] [place], [address] RBC (Bld) [#/Vol] 4.87 10*6/uL Normal 4.6-6.2 [facility] Comment on above: Performed By: #### L 500.4100, L503.0105, L501.9985, L500.4050, L3400.4800, L100.0100, L506.1000 ####[facility] [address] [place], [address] RDW SD 46.9 fl High 35.1-43.9 [facility] Comment on above: Performed By: #### L 500.4100, L503.0105, L501.9985, L500.4050, L3400.4800, L100.0100, L506.1000 ####[facility] [address] [place], [address] WBC (Bld) [#/Vol] 8.9 10*3/uL Normal 4.4-11.0 [facility] Comment on above: Performed By: #### L 500.4100, L503.0105, L501.9985, L500.4050, L3400.4800, L100.0100, L506.1000 ####[facility] [address] [place], [address] Carbon dioxide measurementOr dered By: Josselyn Galindo on 01-05-2025 CO2 [Moles/Vol] 31.0 mmol/L 21.0-32.0 [facility] Chloride measurementOrdered By: Josselyn Galindo on 01-05-2025 Chloride [Moles/Vol] 111 mmol/L High 98-107 [facility] Comprehensive Metabolic Prof ilon 01-05-2025 Albumin [Mass/Vol] 2.8 g/dL Low 3.2-5.0 [facility] Comment on above: Performed By: #### L 500.4100, L503.0105, L501.9985, L500.4050, L3400.4800, L100.0100, L506.1000 ####[facility] [address] [place], [address] Albumin/Globulin [Mass ratio] 0.9 {ratio} Normal 0.9-2.4 [facility] Comment on above: Performed By: #### L 500.4100, L503.0105, L501.9985, L500.4050, L3400.4800, L100.0100, L506.1000 ####[facility] [address] [place], [address] ALK P 63 U/L Normal 45-117 [facility] Comment on above: Performed By: #### L 500.4100, L503.0105, L501.9985, L500.4050, L3400.4800, L100.0100, L506.1000 ####[facility] [address] [place], [address] ALT [Catalytic activity/Vol] 22 U/L Normal 16-61 [facility] Comment on above: Performed By: #### L 500.4100, L503.0105, L501.9985, L500.4050, L3400.4800, L100.0100, L506.1000 ####[facility] [address] [place], [address] AST [Catalytic activity/Vol] 4 U/L Low 15-37 [facility] Comment on above: Performed By: #### L 500.4100, L503.0105, L501.9985, L500.4050, L3400.4800, L100.0100, L506.1000 ####[facility] [address] [place], [address] Bilirubin [Mass/Vol] 0.10 mg/dL Low 0.20-1.00 [facility] Comment on above: Result Comment: For patients on eltrombopag therapy, use of Dimension [place] TBIL is not recommended. Performed By: #### L 500.4100, L503.0105, L501.9985, L500.4050, L3400.4800, L100.0100, L506.1000 ####[facility] [address] [place], [address] BUN/CRE 24.0 RATIO High 10-20 [facility] Comment on above: Performed By: #### L 500.4100, L503.0105, L501.9985, L500.4050, L3400.4800, L100.0100, L506.1000 ####[facility] [address] [place], [address] CA,Total 8.3 mg/dL Low 8.5-10.1 [facility] Comment on above: Performed By: #### L 500.4100, L503.0105, L501.9985, L500.4050, L3400.4800, L100.0100, L506.1000 ####[facility] [address] [place], [address] Chloride [Moles/Vol] 111 mmol/L High 98-107 [facility] Comment on above: Performed By: #### L 500.4100, L503.0105, L501.9985, L500.4050, L3400.4800, L100.0100, L506.1000 ####[facility] [address] [place], [address] CO2 [Moles/Vol] 31.0 mmol/L Normal 21.0-32.0 [facility] Comment on above: Performed By: #### L 500.4100, L503.0105, L501.9985, L500.4050, L3400.4800, L100.0100, L506.1000 ####[facility] [address] [place], [place], [id number] Creatinine [Mass/Vol] 0.79 mg/dL Normal 0.70-1.30 [facility] Comment on above: Result Comment: The validity of the calculated GFR GFRAA in patients over 70 years has not been determined. Clinical correlation is essential. Performed By: #### L 500.4100, L503.0105, L501.9985, L500.4050, L3400.4800, L100.0100, L506.1000 ####[facility] [address] [place], [place], [phone] EST GFR - AA 137 mL/min Normal >60 [facility] Comment on above: Result Comment: Afri can Iraqi GFR Calc Performed By: #### L 500.4100, L503.0105, L501.9985, L500.4050, L3400.4800, L100.0100, L506.1000 ####[facility] [address] [place], [address] GAP 5 Normal 5-15 [facility] Comment on above: Performed By: #### L 500.4100, L503.0105, L501.9985, L500.4050, L3400.4800, L100.0100, L506.1000 ####[facility] [address] [place], [place], [id number] GFR/1.73 sq M.predicted among non-blacks MDRD (S/P/Bld) [Vol rate/Area] 113 mL/min/{1.73_m2} Normal >60 [facility] Comment on above: Result Comment: Non- GFR Calc Performed By: #### L 500.4100, L503.0105, L501.9985, L500.4050, L3400.4800, L100.0100, L506.1000 ####[facility] [address] [place], [address] Globulin (S) [Mass/Vol] 3.0 g/dL Normal 2.2-4.2 [facility] Comment on above: Performed By: #### L 500.4100, L503.0105, L501.9985, L500.4050, L3400.4800, L100.0100, L506.1000 ####[facility] [address] [place], [address] Glucose [Mass/Vol] 148 mg/dL High 74-106 [facility] Comment on above: Result Comment: Fast ing Glucose result greater than or equal to 126 mg/dL suggests DIABETES MELLITUS per A.D.A. criteria. Performed By: #### L 500.4100, L503.0105, L501.9985, L500.4050, L3400.4800, L100.0100, L506.1000 ####[facility] [address] [place], [address] Potassium [Moles/Vol] 3.4 mmol/L Low 3.5-5.1 [facility] Comment on above: Performed By: #### L 500.4100, L503.0105, L501.9985, L500.4050, L3400.4800, L100.0100, L506.1000 ####[facility] [address] [place], [address] Sodium [Moles/Vol] 147 mmol/L High 136-145 [facility] Comment on above: Performed By: #### L 500.4100, L503.0105, L501.9985, L500.4050, L3400.4800, L100.0100, L506.1000 ####[facility] [address] [place], [address] T PROT 5.8 g/dL Low 6.4-8.2 [facility] Comment on above: Performed By: #### L 500.4100, L503.0105, L501.9985, L500.4050, L3400.4800, L100.0100, L506.1000 ####[facility] [address] [place], [address] Urea nitrogen [Mass/Vol] 19 mg/dL High 7-18 [facility] Comment on above: Performed By: #### L 500.4100, L503.0105, L501.9985, L500.4050, L3400.4800, L100.0100, L506.1000 ####[facility] [address] [place], [address] Eosinophil percentageOrdered By: Josselyn Galindo on 01-05-2025 Eosinophils/100 WBC (Bld) 2.2 % 0-5 [facility] Erythrocyte distribution wid th ratioOrdered By: Josselyn Galindo on 01-05-2025 Erythrocyte distribution width (RBC) [Ratio] 13.4 % 11.6-14.6 [facility] Erythrocyte distribution wid th standard deviationOrdered By: Josselyn Galindo on 01-05-2025 Erythrocyte distribution width (RBC) [Entitic vol] 46.9 fL High 35.1-43.9 [facility] Erythrocyte distribution width (RBC) [Ratio] 46.9 fl High 35.1-43.9 [facility] Estimated glomerular filtrat ion rate (GFR) AmericanOrdered By: Josselyn Galindo on 01-05-2025 Estimated GFR (MDRD) Amer 137 mL/min >60 [facility] Comment on above: GFR Calc Glomerular filtration rate ( GFR) estimationOrdered By: Josselyn Galindo on 01-05-2025 Estimated GFR (MDRD) Non-Af Amer 113 mL/min >60 [facility] Comment on above: Non- GFR Calc GFR/1.73 sq M.predicted among non-blacks MDRD (S/P/Bld) [Vol rate/Area] 113 mL/min/{1.73_m2} >60 [facility] Comment on above: Non- GFR Calc Glucose measurementOrdered B y: Josselyn Galindo on 01-05-2025 Glucose [Mass/Vol] 148 mg/dL High 74-106 [facility] Comment on above: Fasting Glucose resu lt greater than or equal to 126 mg/dL suggests DIABETES MELLITUS per A.D.A. criteria. Hematocrit Auto (Bld) [Volum e fraction]Ordered By: Josselyn Galindo on 01-05-2025 Hematocrit (Bld) [Volume fraction] 46.1 % 40-54 [facility] Hemoglobin A1con 01-05-2025 HbA1c (Bld) [Mass fraction] 5.7 % High 3.8-5.6 [facility] Comment on above: Result Comment: Norm al < 5.7 % Prediabetic 5.7 - 6.4 % Diabetic >or= 6.5 % Please note range changes. Performed By: #### L 500.4100, L503.0105, L501.9985, L500.4050, L3400.4800, L100.0100, L506.1000 ####[facility] [address] [place], [address] Hemoglobin A1c percentageOrd ered By: Josselyn Galindo on 01-05-2025 HbA1c (Bld) [Mass fraction] 5.7 % High 3.8-5.6 [facility] Comment on above: Normal < 5.7 % Predi abetic 5.7 - 6.4 % Diabetic >or= 6.5 % Please note range changes. Hemoglobin measurementOrdere d By: Josselyn Galindo on 01-05-2025 Hemoglobin (Bld) [Mass/Vol] 14.2 g/dL 13.0-16.5 [facility] High density lipoprotein (HD L) measurementOrdered By: Josselyn Galindo on 01-05-2025 Cholesterol in HDL [Mass/Vol] 38 mg/dL Low >40 [facility] Comment on above: The drugs N-Acetylcy steine and Metamizole may falsely depress this assay. Reference Range HDL <40 mg/dL Low HDL Cholesterol HDL >or= 60 mg/dL High HDL Cholesterol Immature granulocytes/100 WB C Auto (Bld)Ordered By: Josselyn Galindo on 01-05-2025 Immature granulocytes/100 WBC (Bld) 1.100 % High 0.0-0.9 [facility] Comment on above: IG% - Immature Granu locytes (promyelocytes, myelocytes and metamyelocytes) > 1% indicates that a LEFT SHIFT is Present. Laboratory - Chemistry and C hemistry - challengeOrdered By: Josselyn Galindo on 01-05-2025 AST [Catalytic activity/Vol] 4 U/L Low 15-37 [facility] Lipid Profileon 01-05-2025 Cholesterol [Mass/Vol] 158 mg/dL Normal 200 [facility] Comment on above: Result Comment: <200 mg/dL Desirable 200-240 mg/dL Borderline >240 mg/dL High Risk Performed By: #### L 500.4100, L503.0105, L501.9985, L500.4050, L3400.4800, L100.0100, L506.1000 ####[facility] [address] [place], [address] Cholesterol in HDL [Mass/Vol] 38 mg/dL Low [facility] Comment on above: Result Comment: The drugs N-Acetylcysteine and Metamizole may falsely depress this assay. Reference Range HDL <40 mg/dL Low HDL Cholesterol HDL >or= 60 mg/dL High HDL Cholesterol Performed By: #### L 500.4100, L503.0105, L501.9985, L500.4050, L3400.4800, L100.0100, L506.1000 ####[facility] [address] [place], [address] Cholesterol in LDL [Mass/Vol] 81 mg/dL Normal 0-130 [facility] Comment on above: Performed By: #### L 500.4100, L503.0105, L501.9985, L500.4050, L3400.4800, L100.0100, L506.1000 ####[facility] [address] [place], [address] Cholesterol in VLDL [Mass/Vol] 39 mg/dL Normal 5-40 [facility] Comment on above: Performed By: #### L 500.4100, L503.0105, L501.9985, L500.4050, L3400.4800, L100.0100, L506.1000 ####[facility] [address] [place], [place], [phone]) Triglyceride [Mass/Vol] 195 mg/dL Normal [facility] Comment on above: Result Comment: The drugs N-Acetylcysteine and Metamizole may falsely depress this assay. Serum Triglycerides Reference Interval Normal <150 mg/dL Borderline high 150 - 199 mg/dL High 200 - 499 mg/dL Very High > or = 500 mg/dL Performed By: #### L 500.4100, L503.0105, L501.9985, L500.4050, L3400.4800, L100.0100, L506.1000 ####[facility] [address] [place], [place], [id number] Low density lipoprotein (LDL ) cholesterol measurementOrdered By: Josselyn Galindo on 01-05-2025 Cholesterol in LDL [Mass/Vol] 81 mg/dL 0-130 [facility] Lymphocytes Auto (Unsp spec) [#/Vol]Ordered By: Josselyn Galindo on 01-05-2025 Lymphocytes (Bld) [#/Vol] 2.39 10*3/uL 0.83-4.51 [facility] Lymphocytes/100 WBC Auto (Un sp spec)Ordered By: Josselyn Mateo on 01-05-2025 Lymphocytes/100 WBC (Bld) 26.8 % 19-41 [facility] MCV (mean corpuscular volume ) determinationOrdered By: Josselyn Galindo on 01-05-2025 MCV (RBC) [Entitic vol] 94.7 fL High 80-94 [facility] Mean corpuscular hemoglobin (MCH) determinationOrdered By: Josselyn Galindo on 01-05-2025 MCH (RBC) [Entitic mass] 29.2 pg 27.0-32.0 [facility] Mean corpuscular hemoglobin concentration (MCHC) determinationOrdered By: Josselyn Galindo on 01-05-2025 MCHC (RBC) [Mass/Vol] 30.8 g/dL Low 32-36 [facility] Mean platelet volume determi nationOrdered By: Josselyn Galindo on 01-05-2025 Platelet mean volume (Bld) [Entitic vol] 10.8 fL 6.2-12.0 [facility] Monocyte percentageOrdered B y: Josselyn Galindo on 01-05-2025 Monocytes/100 WBC (Bld) 11.4 % High 0-10 [facility] Neutrophil percentageOrdered By: Josselyn Galindo on 01-05-2025 Neutrophils/100 WBC (Bld) 57.9 % 47-70 [facility] Nucleated red blood cell per centageOrdered By: Josselyn Galindo on 01-05-2025 Nucleated RBC/100 WBC (Bld) [Ratio] 0 % 0-5 [facility] Platelet countOrdered By: Benjamin Galindo on 01-05-2025 Platelets (Bld) [#/Vol] 182 10*3/uL 150-450 [facility] Potassium measurementOrdered By: Josselyn Galindo on 01-05-2025 Potassium [Moles/Vol] 3.4 mmol/L Low 3.5-5.1 [facility] RBC Auto (Bld) [#/Vol]Ordere d By: Josselyn Galindo on 01-05-2025 RBC (Bld) [#/Vol] 4.87 10*6/uL 4.6-6.2 [facility] Serum anion gap measurementO rdered By: Josselyn Galindo on 01-05-2025 Anion gap [Moles/Vol] 5 mmol/L 5-15 [facility] Serum globulin measurementOr dered By: Josselyn Galindo on 01-05-2025 Globulin (S) [Mass/Vol] 3.0 g/dL 2.2-4.2 [facility] Serum or plasma alanine delong otransferase (ALT) measurementOrdered By: Josselyn Galindo on 01-05-2025 ALT [Catalytic activity/Vol] 22 U/L 16-61 [facility] Serum or plasma albumin cristina urement (mass/volume)Ordered By: Josselyn Galindo on 01-05-2025 Albumin [Mass/Vol] 2.8 g/dL Low 3.2-5.0 [facility] Serum or plasma alkaline leland sphatase measurementOrdered By: Josselyn Galindo on 01-05-2025 ALP [Catalytic activity/Vol] 63 U/L 45-117 [facility] Serum or plasma calcium cristina urement (mass/volume)Ordered By: Josselyn Galindo on 01-05-2025 Calcium [Mass/Vol] 8.3 mg/dL Low 8.5-10.1 [facility] Serum or plasma cholesterol measurement (mass/volume)Ordered By: Josselyn Galindo on 01-05-2025 Cholesterol [Mass/Vol] 158 mg/dL <200 [facility] Comment on above: <200 mg/dL Desirable 200-240 mg/dL Borderline >240 mg/dL High Risk Serum or plasma creatinine m easurement (mass/volume)Ordered By: Josselyn Galindo on 01-05-2025 Creatinine [Mass/Vol] 0.79 mg/dL 0.70-1.30 [facility] Comment on above: The validity of the calculated GFR & GFRAA in patients over 70 years has not been determined. Clinical correlation is essential. Serum or plasma free testost erone measurement (mass/volume)Ordered By: Josselyn Galindo on 01-05-2025 Testosterone Free [Mass/Vol] 0.9 pg/mL Low 6.8-21.5 [facility] Comment on above: Performed at: [address] [id number] Director: Debby Cruz MD, Phone: [phone] Serum or plasma urea nitroge n measurement (mass/volume)Ordered By: Josselyn Galindo on 01-05-2025 Urea nitrogen [Mass/Vol] 19 mg/dL High 7-18 [facility] Sodium levelOrdered By: Violette Galindo on 01-05-2025 Sodium [Moles/Vol] 147 mmol/L High 136-145 [facility] Testosterone Free [Mass/Vol] Ordered By: Josselyn Galindo on 01-05-2025 Free Testosterone 0.9 pg/mL Low 6.8-21.5 [facility] Comment on above: Performed at: [address] [id number] Director: Debby Cruz MD, Phone: [phone] Total proteinOrdered By: Omar Galindo on 01-05-2025 Protein [Mass/Vol] 5.8 g/dL Low 6.4-8.2 [facility] Triglycerides measurementOrd ered By: Josselyn Galindo on 01-05-2025 Triglyceride [Mass/Vol] 195 mg/dL <199 [facility] Comment on above: The drugs N-Acetylcy steine and Metamizole may falsely depress this assay.Serum Triglycerides Reference Interval Normal <150 mg/dL Borderline high 150 - 199 mg/dL High 200 - 499 mg/dL Very High > or = 500 mg/dL Very low density lipoprotein (VLDL) cholesterol measurementOrdered By: Josselyn Galindo on 01-05-2025 Very low density lipoprotein (VLDL) cholesterol measurement 39 mg/dL 5-40 [facility] VLDL Cholesterol 39 mg/dL 5-40 [facility] Vitamin B12on 01-05-2025 Cobalamin (Vitamin B12) [Mass/Vol] 366 pg/mL Normal [facility] Comment on above: Performed By: #### L 500.4100, L503.0105, L501.9985, L500.4050, L3400.4800, L100.0100, L506.1000 ####[facility] [address] [place], [address] Vitamin B12 measurementOrder ed By: Josselyn Galindo on 01-05-2025 Cobalamin (Vitamin B12) [Mass/Vol] 366 pg/mL [facility] Vitamin D,25 Hydroxyon 01-05 Vitamin D 25-OH 27.3 ng/mL Normal [facility] Comment on above: Result Comment: Kelly min D 25(OH) Status Range Deficiency <20 ng/mL (50nmol/L) Insufficiency 20 - 30 ng/mL (50 - 75 nmol/L) Sufficiency 30 - 100 ng/mL (75 - 250 nmol/L) Toxicity >100 ng/mL (>250 nmol/L) Performed By: #### L 500.4100, L503.0105, L501.9985, L500.4050, L3400.4800, L100.0100, L506.1000 ####[facility] [address] [place], [address] White blood cell (WBC) count Ordered By: Josselyn Galindo on 01-05-2025 WBC (Bld) [#/Vol] 8.9 10*3/uL 4.4-11.0 [facility] Ammoniaon 12-28-2024 Ammonia (P) [Moles/Vol] 22.0 umol/L Normal 11-32 [facility] Comment on above: Performed By: #### L 501.5200, L500.3400, L500.2500, L503.5510 #### [facility] [address] [place], [address] Basic Metabolic Profile (BMP )on 12-28-2024 BUN/CRE 21.6 RATIO High - [facility] Comment on above: Performed By: #### L 501.5200, L500.3400, L500.2500, L503.5510 #### [facility] [address] [place], [address] CA,Total 8.4 mg/dL Low 8.5-10.1 [facility] Comment on above: Performed By: #### L 501.5200, L500.3400, L500.2500, L503.5510 #### [facility] [address] [place], [address] Chloride [Moles/Vol] 104 mmol/L Normal 98-107 [facility] Comment on above: Performed By: #### L 501.5200, L500.3400, L500.2500, L503.5510 #### [facility] [address] [place], [address] CO2 [Moles/Vol] 29.0 mmol/L Normal 21.0-32.0 [facility] Comment on above: Performed By: #### L 501.5200, L500.3400, L500.2500, L503.5510 #### [facility] [address] [place], [address] Creatinine [Mass/Vol] 0.74 mg/dL Normal 0.70-1.30 [facility] Comment on above: Result Comment: The validity of the calculated GFR GFRAA in patients over 70 years has not been determined. Clinical correlation is essential. Performed By: #### L 501.5200, L500.3400, L500.2500, L503.5510 #### [facility] [address] [place], [address] EST GFR - AA 148 mL/min Normal >60 [facility] Comment on above: Result Comment: Afri can Iraqi GFR Calc Performed By: #### L 501.5200, L500.3400, L500.2500, L503.5510 #### [facility] [address] [place], [address] GAP 6 Normal 5-15 [facility] Comment on above: Performed By: #### L 501.5200, L500.3400, L500.2500, L503.5510 #### [facility] [address] [place], [address] GFR/1.73 sq M.predicted among non-blacks MDRD (S/P/Bld) [Vol rate/Area] 122 mL/min/{1.73_m2} Normal >60 [facility] Comment on above: Result Comment: Non- GFR Calc Performed By: #### L 501.5200, L500.3400, L500.2500, L503.5510 #### [facility] [address] [place], [address] Glucose [Mass/Vol] 125 mg/dL High 74-106 [facility] Comment on above: Result Comment: Fast ing Glucose result from 100 to 125 mg/dL suggests IMPAIRED HOMEOSTASIS per A.D.A. criteria. Performed By: #### L 501.5200, L500.3400, L500.2500, L503.5510 #### [facility] [address] [place], [address] Potassium [Moles/Vol] 4.6 mmol/L Normal 3.5-5.1 [facility] Comment on above: Performed By: #### L 501.5200, L500.3400, L500.2500, L503.5510 #### [facility] [address] [place], [address] Sodium [Moles/Vol] 138 mmol/L Normal 136-145 [facility] Comment on above: Performed By: #### L 501.5200, L500.3400, L500.2500, L503.5510 #### [facility] [address] [place], [address] Urea nitrogen [Mass/Vol] 16 mg/dL Normal 7-18 [facility] Comment on above: Performed By: #### L 501.5200, L500.3400, L500.2500, L503.5510 #### [facility] [address] [place], [address] Bilirubin directOrdered By: Jovita Jimenez on 12-28-2024 Bilirubin.direct [Mass/Vol] 0.13 mg/dL 0.00-0.30 [facility] Bilirubin, totalOrdered By: Jovita Jimenez on 12-28-2024 Bilirubin [Mass/Vol] 0.30 mg/dL 0.20-1.00 [facility] Comment on above: For patients on eltr ombopag therapy, use of Dimension [place] TBIL is not recommended. Blood urea nitrogen (BUN)/cr eatinine ratioOrdered By: Jovita Jimenez on 12-28-2024 Urea nitrogen/Creatinine [Mass ratio] 21.6 mg/mg High 10-20 [facility] Carbon dioxide measurementOr dered By: Jovita Jimenez on 12-28-2024 CO2 [Moles/Vol] 29.0 mmol/L 21.0-32.0 [facility] Chloride measurementOrdered By: Jovita Jimenez on 12-28-2024 Chloride [Moles/Vol] 104 mmol/L 98-107 [facility] Estimated glomerular filtrat ion rate (GFR) AmericanOrdered By: Jovita Jimenez on 12-28-2024 Estimated GFR (MDRD) Amer 148 mL/min >60 [facility] Comment on above: GFR Calc Gastroenterology Visit Repor ton 12-28-2024 Gastroenterology Visit Report [facility] [address] [place] [address] OFFICE VISIT Date of Service: 12/28/24 MR#: [id number] Acct: [id number] Name: JOSE MCNAMARA Rep #: [id number] : 1980 Provider: Keny Guevara DO Age/Sex: 44/M Location: [facility] Status: Signed Intake Vital Signs 10/04/24 10:44 12/27/24 10:26 Height 5 ft 9 in 5 ft 9 in Weight: 151 lb BMI 22.3 Intake Visit Reasons: 3 M FU Allergies Penicillins Allergy (Unknown, Verified 12/27/24 10:22) Rash Medications ???Medication ???Instructions ???Recorded ???Confirmed ???Type fluvoxamine 100 mg tablet 100 mg PO QHS 08/06/18 12/28/24 Hi story oxcarbazepine 600 mg tablet 900 mg PO QHS 08/06/18 12/28/24 Hi story propranolol 20 mg tablet 20 mg PO BID 08/06/18 12/28/24 His tory buprenorphine 8 mg-naloxone 2 mg 2.5 tab sublingual BID 06/17/23 History sublingual tablet olanzapine 5 mg tablet 5 mg PO QHS 06/17/23 12/28/24 Hist ory ondansetron 4 mg disintegrating 4 mg PO Q8H PRN nausea and 3 12/28/24 Rx tablet vomiting #30 tabs albuterol sulfate 90 mcg/actuation 2 puff inhalation Q6H PRN 12/28/24 Rx aerosol inhaler shortness of breath or wheezing #6.7 grams potassium chloride 20 mEq oral 40 meq PO ONCE #2 ea 05/24/2412/17 Rx packet pantoprazole 20 mg tablet,delayed 20 mg PO Q12H #180 TABLETS 12/28/24 Rx release divalproex 500 mg tablet,delayed 500 mg PO BID 10/04/24 12/28/24 Hi story release (Depakote) lubiprostone 24 mcg capsule 24 mcg PO BID PRN 10/04/24 5 History (Amitiza) dicyclomine 10 mg capsule 10 mg PO BID #60 caps 10/17/2411/09 Rx sucralfate 1 gram tablet 1 g PO Q6H #360 TABLETS 10/17/24 0 12/28/24 Rx magnesium oxide 500 mg capsule 500 mg PO DAILY #30 caps 11/07/24 12/28/24 Rx prednisone 20 mg tablet 20 mg PO DAILY #30 tabs 11/28/24 0 12/28/24 Rx valacyclovir 500 mg tablet 500 mg PO BID #6 tabs 12/27/2411/09 Rx (Valtrex) ciprofloxacin HCl 250 mg tablet 250 mg PO Q12H #20 tabs 12/28/24 0 12/28/24 Rx metronidazole 500 mg tablet 500 mg PO Q12H #20 tabs 12/28/24 0 12/28/24 Rx PFSH Medical History (Updated 12/27/24 @ 11:[address] Josselyn Galindo MD) Pain Crohn's disease Sjogren's disease Chest congestion Loss of hearing Wears glasses Marijuana use Alcohol use Substance abuse Injury of back Migraine headache Dietary restriction Difficulty swallowing COPD (chronic obstructive pulmonary disease) History of edema History of echocardiogram Enlarged heart History of diverticulitis Seizure History of blood transfusion Celiac disease Positive GETACHEW (antinuclear antibody) GERD (gastroesophageal reflux disease) Bipolar disorder Depression Anxiety Arthritis Injury of head and neck Smoker Hoarseness Abdominal pain Enlarged heart Migraines Ulcer Hearing problem Back problem Alcohol abuse Infective endocarditis Drug abuse Surgical History Hx of colonoscopy History of esophagogastroduodenoscop y (EGD) Hx of hernia repair History of facial surgery Family History Uncle Diabetes Aunt Diabetes Father Heart disease Alcohol abuse Enlarged heart Son Benign brain tumor Seizures Grandmother Seizures Other Anxiety Social History household members: friend(s) current occupational status: employed current occupation: [employer], on FMLA currently due to abdominal problems Smoking Status: Current every day smoker tobacco type: cigarettes Electronic Cigarette Use: not used quit status: considering quitting alcohol intake: former year quit: 2010 substance use type: former substance user Date of last use: heroin - 2018, marijuana and sedatives caffeine: Yes what type of physical activity do you participate in: walking and weight training frequency: 1-2 times per week seatbelt use: always do you feel safe at home: Yes HPI HPI Details: JOSE MCNAMARA, is a 44 M who presents to the office today for follow up. *BGI established 08.06.21 for evaluation of hepatitis C, esophageal dysphagia, GERD. Biochemical ANCA, IgGA, DARRIAN, CBC, ESR, CMP, LDH CRP H12.20, SS-B IgG H1.7, celiac TTG H5, IgM H202, IgE L<2 HCV ab reactive HCV viral load HCV not detected HCV genotype insufficient viral copy, TNP Stool lactoferrin, calprotectin WNL ? EGD 08.13.21 with small sliding hiatal hernia; duodenitis; LA Grade B reflux esophagitis noted. Start Carafate 1gram TID OV 08.28.21 with ongoing headaches, dysphagia, N/V without change. He did not start Carafate. OV 10.16.21 no show. OV (more content not included)... Normal [facility] Glomerular filtration rate ( GFR) estimationOrdered By: Jovita Jimenez on 12-28-2024 Estimated GFR (MDRD) Non-Af Amer 122 mL/min >60 [facility] Comment on above: Non- GFR Calc GFR/1.73 sq M.predicted among non-blacks MDRD (S/P/Bld) [Vol rate/Area] 122 mL/min/{1.73_m2} >60 [facility] Comment on above: Non- GFR Calc Glucose measurementOrdered B y: Jovita Jimenez on 12-28-2024 Glucose [Mass/Vol] 125 mg/dL High 74-106 [facility] Comment on above: Fasting Glucose resu lt from 100 to 125 mg/dL suggests IMPAIRED HOMEOSTASIS per A.D.A. criteria. Laboratory - Chemistry and C hemistry - challengeOrdered By: Jovita Jimenez on 12-28-2024 AST [Catalytic activity/Vol] 19 U/L 15-37 [facility] Liver Profileon 12-28-2024 Albumin [Mass/Vol] 3.3 g/dL Normal 3.2-5.0 [facility] Comment on above: Performed By: #### L 501.5200, L500.3400, L500.2500, L503.5510 ####[facility] [address] [place], [address] ALK P 83 U/L Normal 45-117 [facility] Comment on above: Performed By: #### L 501.5200, L500.3400, L500.2500, L503.5510 ####[facility] [address] [place], [address] ALT [Catalytic activity/Vol] 48 U/L Normal 16-61 [facility] Comment on above: Performed By: #### L 501.5200, L500.3400, L500.2500, L503.5510 ####[facility] [address] [place], [address] AST [Catalytic activity/Vol] 19 U/L Normal 15-37 [facility] Comment on above: Performed By: #### L 501.5200, L500.3400, L500.2500, L503.5510 ####[facility] [address] [place], [address] Bilirubin [Mass/Vol] 0.30 mg/dL Normal 0.20-1.00 [facility] Comment on above: Result Comment: For patients on eltrombopag therapy, use of Dimension [place] TBIL is not recommended. Performed By: #### L 501.5200, L500.3400, L500.2500, L503.5510 ####[facility] [address] [place], [address] Bilirubin.direct [Mass/Vol] 0.13 mg/dL Normal 0.00-0.30 [facility] Comment on above: Performed By: #### L 501.5200, L500.3400, L500.2500, L503.5510 ####[facility] [address] [place], [address] Globulin (S) [Mass/Vol] 3.2 g/dL Normal 2.2-4.2 [facility] Comment on above: Performed By: #### L 501.5200, L500.3400, L500.2500, L503.5510 ####[facility] [address] [place], [address] T PROT 6.5 g/dL Normal 6.4-8.2 [facility] Comment on above: Performed By: #### L 501.5200, L500.3400, L500.2500, L503.5510 ####[facility] [address] [place], [address] Magnesiumon 12-28-2024 Magnesium [Mass/Vol] 2.2 mg/dL Normal 1.6-2.6 [facility] Comment on above: Performed By: #### L 501.5200, L500.3400, L500.2500, L503.5510 ####[facility] [address] [place], [address] Magnesium measurementOrdered By: Jovita Jimenez on 12-28-2024 Magnesium [Mass/Vol] 2.2 mg/dL 1.6-2.6 [facility] Potassium measurementOrdered By: Jovita Jimenez on 12-28-2024 Potassium [Moles/Vol] 4.6 mmol/L 3.5-5.1 [facility] Serum anion gap measurementO rdered By: Jovita Jimenez on 12-28-2024 Anion gap [Moles/Vol] 6 mmol/L 5-15 [facility] Serum globulin measurementOr dered By: Jovita Jimenez on 12-28-2024 Globulin (S) [Mass/Vol] 3.2 g/dL 2.2-4.2 [facility] Serum or plasma alanine delong otransferase (ALT) measurementOrdered By: Jovita Jimenez on 12-28-2024 ALT [Catalytic activity/Vol] 48 U/L 16-61 [facility] Serum or plasma albumin cristina urement (mass/volume)Ordered By: Jvoita Jimenez on 12-28-2024 Albumin [Mass/Vol] 3.3 g/dL 3.2-5.0 [facility] Serum or plasma alkaline leland sphatase measurementOrdered By: Jovita Jimenez on 12-28-2024 ALP [Catalytic activity/Vol] 83 U/L 45-117 [facility] Serum or plasma calcium cristina urement (mass/volume)Ordered By: Jovita Jimenez on 12-28-2024 Calcium [Mass/Vol] 8.4 mg/dL Low 8.5-10.1 [facility] Serum or plasma creatinine m easurement (mass/volume)Ordered By: Jovita Jimenez on 12-28-2024 Creatinine [Mass/Vol] 0.74 mg/dL 0.70-1.30 [facility] Comment on above: The validity of the calculated GFR & GFRAA in patients over 70 years has not been determined. Clinical correlation is essential. Serum or plasma urea nitroge n measurement (mass/volume)Ordered By: Jovita Jimenez on 12-28-2024 Urea nitrogen [Mass/Vol] 16 mg/dL 7-18 [facility] Sodium levelOrdered By: Eric Jimenez on 12-28-2024 Sodium [Moles/Vol] 138 mmol/L 136-145 [facility] Total proteinOrdered By: Anna casa Barbara on 12-28-2024 Protein [Mass/Vol] 6.5 g/dL 6.4-8.2 [facility] Venous blood ammonia measure mentOrdered By: Jovita Barbara on 12-28-2024 Ammonia (P) [Moles/Vol] 22.0 umol/L 11-32 [facility] Internal Medicine Office Vis iton 12-26-2024 Internal Medicine Office Visit [facility] [address] [place] [address] [place] [address] OFFICE VISIT Date of Service: 12/27/24 MR#: [id number] Acct: [id number] Name: JOSE MCNAMARA Rep #: [id number] : 1980 Provider: Dr. Josselyn youngblood MD Age/Sex: 44/M Location: [facility] [place] Status: Signed Intake Vital Signs 10/04/24 10:44 12/27/24 10:26 Height 5 ft 9 in 5 ft 9 in Weight: 149 lb 2 oz BMI 22.0 BP 102/62 Blood Pressure Location Lt brachial Position Sitting Respiration 16 Pulse 68 Pulse Source Monitor Temp 97.3 F L Temp Source Temporal Pulse Oximetry (%) 93 Oxygen Delivery Method room air Intake Visit Reasons: wants podiatry referral Chief Complaint: follow up Fisher Weir Required: No Accompanied by: Self Is patient in pain?: No Allergies Penicillins Allergy (Unknown, Verified 12/27/24 10:22) Rash Medications ???Medication ???Instructions ???Recorded ???Confirmed ???Type fluvoxamine 100 mg tablet 100 mg PO QHS 08/06/18 12/27/24 Hi story oxcarbazepine 600 mg tablet 900 mg PO QHS 08/06/18 12/27/24 Hi story propranolol 20 mg tablet 20 mg PO BID 08/06/18 12/27/24 His tory buprenorphine 8 mg-naloxone 2 mg 2.5 tab sublingual BID 06/17/23 History sublingual tablet olanzapine 5 mg tablet 5 mg PO QHS 06/17/23 12/27/24 Hist ory ondansetron 4 mg disintegrating 4 mg PO Q8H PRN nausea and 3 12/27/24 Rx tablet vomiting #30 tabs albuterol sulfate 90 mcg/actuation 2 puff inhalation Q6H PRN 12/27/24 Rx aerosol inhaler shortness of breath or wheezing #6.7 grams potassium chloride 20 mEq oral 40 meq PO ONCE #2 ea 05/24/2412/17 Rx packet pantoprazole 20 mg tablet,delayed 20 mg PO Q12H #180 TABLETS 12/27/24 Rx release divalproex 500 mg tablet,delayed 500 mg PO BID 10/04/24 12/27/24 Hi story release (Depakote) lubiprostone 24 mcg capsule 24 mcg PO BID PRN 10/04/24 5 History (Amitiza) dicyclomine 10 mg capsule 10 mg PO BID #60 caps 10/17/2410/10 Rx sucralfate 1 gram tablet 1 g PO Q6H #360 TABLETS 10/17/24 0 12/27/24 Rx magnesium oxide 500 mg capsule 500 mg PO DAILY #30 caps 11/07/24 12/27/24 Rx prednisone 20 mg tablet 20 mg PO DAILY #30 tabs 11/28/24 0 12/27/24 Rx valacyclovir 500 mg tablet 500 mg PO BID #6 tabs 12/27/2410/10 Rx (Valtrex) Have you fallen in the past year?: No Nurse's Note: woke up with bruising on left lower leg starting to heal. [facility]ail [facility] Medical History (Updated 12/27/24 @ 11:[address] Josselyn Galindo MD) Pain Crohn's disease Sjogren's disease Chest congestion Loss of hearing Wears glasses Marijuana use Alcohol use Substance abuse Injury of back Migraine headache Dietary restriction Difficulty swallowing COPD (chronic obstructive pulmonary disease) History of edema History of echocardiogram Enlarged heart History of diverticulitis Seizure History of blood transfusion Celiac disease Positive GETACHEW (antinuclear antibody) GERD (gastroesophageal reflux disease) Bipolar disorder Depression Anxiety Arthritis Injury of head and neck Smoker Hoarseness Abdominal pain Enlarged heart Migraines Ulcer Hearing problem Back problem Alcohol abuse Infective endocarditis Drug abuse Surgical History Hx of colonoscopy History of esophagogastroduodenoscop y (EGD) Hx of hernia repair History of facial surgery Family History Uncle Diabetes Aunt Diabetes Father Heart disease Alcohol abuse Enlarged heart Son Benign brain tumor Seizures Grandmother Seizures Other Anxiety Social History (Updated 12/27/24 @ 10:[address] Josselyn Galindo MD) household members: friend(s) current occupational status: employed current occupation: [employer], on FMLA currently due to abdominal problems Smoking Status: Current every day smoker tobacco type: cigarettes Smoking packs per day: 1 Smoking cigarettes per day: 20.0 Years smoked: 20 Smoking pack-years: 20.00 Electronic Cigarette Use: not used quit status: considering quitting alcohol intake: former year quit: 2010 substance use type: former substance user Date of last use: heroin - 2018, marijuana and sedatives caffeine: Yes what type of physical activity do you participate in: walking and weight training frequency: 1-2 times per week seatbelt use: always do you feel safe at home: Yes HPI HPI Chief Complaint: follow up Details: JOSE MCNAMARA, is a 44 M who presents to the office today for a follow up. He is up to date on his routine blood work. He is not due for any screening. He doesn't want a flu shot. He does smoke and isn't ready to qu (more content not included)... Normal [facility] Gastroenterology Visit Repor ton 10-04-2024 Gastroenterology Visit Report [facility] [address] [place] [address] OFFICE VISIT Date of Service: 10/04/24 MR#: [id number] Acct: [id number] Name: JOSE MCNAMARA Rep #: [id number] : 1980 Provider: Keny Guevara DO Age/Sex: 44/M Location: [facility] [place] Status: Signed Intake Vital Signs 05/24/24 07:36 10/04/24 10:44 Height 5 ft 9 in 5 ft 9 in Weight: 151 lb BMI 22.3 Intake Visit Reasons: 4 M FU Allergies Penicillins Allergy (Unknown, Verified 05/24/24 07:25) Rash Medications ???Medication ???Instructions ???Recorded ???Confirmed ???Type fluvoxamine 100 mg tablet 100 mg PO QHS 08/06/18 10/04/24 History oxcarbazepine 600 mg tablet 900 mg PO QHS 08/06/18 10/04/24 History propranolol 20 mg tablet 20 mg PO BID 08/06/18 10/04/24 History buprenorphine 8 mg-naloxone 2 mg 2.5 tab sublingual BID 06/17/23 10/04/24 History sublingual tablet olanzapine 5 mg tablet 5 mg PO QHS 06/17/23 10/04/24 History ondansetron 4 mg disintegrating 4 mg PO Q8H PRN nausea and 09/01/23 10/04/24 Rx tablet vomiting #30 tabs albuterol sulfate 90 mcg/actuation 2 puff inhalation Q6H PRN 01/07/24 10/04/24 Rx aerosol inhaler shortness of breath or wheezing #6.7 grams potassium chloride 20 mEq oral 40 meq PO ONCE #2 ea 05/24/24 10/04/24 Rx packet magnesium oxide 500 mg capsule 500 mg PO DAILY #30 caps 05/25/24 10/04/24 Rx pantoprazole 20 mg tablet,delayed 20 mg PO Q12H #180 TABLETS 06/18/24 10/04/24 Rx release sucralfate 1 gram tablet 1 g PO Q6H #360 TABLETS 07/26/24 10/04/24 Rx dicyclomine 10 mg capsule 10 mg PO BID #60 caps 08/31/24 10/04/24 Rx prednisone 20 mg tablet 20 mg PO DAILY #30 tabs 08/31/24 10/04/24 Rx divalproex 500 mg tablet,delayed 500 mg PO BID 10/04/24 10/04/24 History release (Depakote) lubiprostone 24 mcg capsule 24 mcg PO BID PRN 10/04/24 [facility] Pain Crohn's disease Sjogren's disease Chest congestion Loss of hearing Wears glasses Marijuana use Alcohol use Substance abuse Injury of back Migraine headache Dietary restriction Difficulty swallowing COPD (chronic obstructive pulmonary disease) History of edema History of echocardiogram Enlarged heart History of diverticulitis Seizure History of blood transfusion Celiac disease Positive GETACHEW (antinuclear antibody) GERD (gastroesophageal reflux disease) Bipolar disorder Depression Anxiety Arthritis Injury of head and neck Smoker Hoarseness Abdominal pain Enlarged heart Migraines Ulcer Hearing problem Back problem Alcohol abuse Infective endocarditis Drug abuse Surgical History Hx of colonoscopy History of esophagogastroduodenoscop y (EGD) Hx of hernia repair History of facial surgery Family History Uncle Diabetes Aunt Diabetes Father Heart disease Alcohol abuse Enlarged heart Son Benign brain tumor Seizures Grandmother Seizures Other Anxiety Social History household members: friend(s) current occupational status: employed current occupation: [employer], on FMLA currently due to abdominal problems Smoking Status: Current every day smoker tobacco type: cigarettes Electronic Cigarette Use: not used quit status: considering quitting alcohol intake: former year quit: 2010 substance use type: former substance user Date of last use: heroin - 2018, marijuana and sedatives caffeine: Yes what type of physical activity do you participate in: walking and weight training frequency: 1-2 times per week seatbelt use: always do you feel safe at home: Yes HPI HPI Details: JOSE MCNAMARA, is a 44 M who presents to the office today for follow up. *BGI established 08.06.21 for evaluation of hepatitis C, esophageal dysphagia, GERD. Biochemical ANCA, IgGA, DARRIAN, CBC, ESR, CMP, LDH CRP H12.20, SS-B IgG H1.7, celiac TTG H5, IgM H202, IgE L<2 HCV ab reactive HCV viral load HCV not detected HCV genotype insufficient viral copy, TNP Stool lactoferrin, calprotectin WNL ? EGD 08.13.21 with small sliding hiatal hernia; duodenitis; LA Grade B reflux esophagitis noted. Start Carafate 1gram TID OV 08.28.21 with ongoing headaches, dysphagia, N/V without change. He did not start Carafate. OV 10.16.21 no show. OV 06.06.22 no show. Contact 07.15.22 with symptoms of abdominal pain causing him to miss work. Contact 07.17.22 to report that he is having a reaction to Buspar without symptom resolution; he is worried about losing his job. Zofran scheduled Q6h started with promethazi (more content not included)... Normal [facility] Upper Ext No Joint W/WO Cont on 09-21-2024 Upper Ext No Joint W/WO Cont [facility] Imaging Services [address] [place] [address] Upper Ext No Joint W/WO Cont MR#: [id number] Acct: [id number] Name: JOSE MCNAMARA Rep #: [id number] : 1980 M 44 From: Matt Roy MD PCP: Dr. Josselyn Galindo MD Status: REG CLI Study: Upper Ext No Joint W/WO Cont Date of Exam: Exam# [id number] Ordering Dr: Polly Aviles DO [id number] STUDY: MRI RIGHT HAND, WITHOUT AND WITH IV CONTRAST REASON FOR EXAM: Male, 44 years old. 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 TECHNIQUE: Standardized fat and water weighted pulse sequences were obtained in all 3 orthogonal planes. Following the intravenous administration of 17 cc Clariscan contrast, additional postcontrast imaging was obtained. COMPARISON: None. FINDINGS: FIRST DIGIT: Normal visualized first metacarpus. Normal metacarpophalangeal joint. Normal interphalangeal joint. Normal proximal, and distal phalanges. Normal flexor and extensor tendons. There is no soft tissue abnormality. SECOND DIGIT: Normal visualized second metacarpus. Normal metacarpophalangeal joint. Normal proximal and distal interphalangeal joints. Normal proximal, middle and distal phalanges. Normal flexor and extensor tendons. There is no soft tissue abnormality. THIRD DIGIT: Normal visualized third metacarpus. Normal metacarpophalangeal joint. Normal proximal and distal interphalangeal joints. Normal proximal, middle and distal phalanges. Normal flexor and extensor tendons. There is no soft tissue abnormality. FOURTH DIGIT: Normal visualized fourth metacarpus. Normal metacarpophalangeal joint. Normal proximal and distal interphalangeal joints. Normal proximal, middle and distal phalanges. Normal flexor and extensor tendons. There is no soft tissue abnormality. FIFTH DIGIT: Normal visualized fifth metacarpus. Normal metacarpophalangeal joint. Normal proximal and distal interphalangeal joints. Normal proximal, middle and distal phalanges. Normal flexor and extensor tendons. There is no soft tissue abnormality. Normal visualized thenar and hypothenar muscles. Normal lumbricalis and interosseous muscles. There are no solid, cystic or lipomatous masses. Following IV contrast administration, there is no abnormal enhancement. MRI/Upper Ext No Joint W/WO Cont IMPRESSION: Unremarkable right hand MRI. No abnormal enhancement. Electronically Signed: Matt Roy MD at 14:32 EST Reading Location ID and State: [address] [place] [address] , Service support , CC: Dr. Josselyn Galindo MD; Dr. Polly Aviles DO Truck Safety Inspector: Signed Normal [facility] CBC W/Diff, Automatedon 10- Absolute Lymph 2.09 X10 3/uL Normal 0.83-4.51 [facility] Comment on above: Performed By: #### L 501.7900, L500.4050, L100.0100, L501.8100 ####[facility] [address] [place], [place], [id number] Absolute Neut 8.3 X10 3/uL High 2.0-7.7 [facility] Comment on above: Performed By: #### L 501.7900, L500.4050, L100.0100, L501.8100 ####[facility] [address] [place], [address] Basophils/100 WBC (Bld) 0.7 % Normal 0-1 [facility] Comment on above: Performed By: #### L 501.7900, L500.4050, L100.0100, L501.8100 ####[facility] [address] [place], [address] Eosinophils/100 WBC (Bld) 1.6 % Normal 0-5 [facility] Comment on above: Performed By: #### L 501.7900, L500.4050, L100.0100, L501.8100 ####[facility] [address] [place], [address] Erythrocyte distribution width (RBC) [Ratio] 13.7 % Normal 11.6-14.6 [facility] Comment on above: Performed By: #### L 501.7900, L500.4050, L100.0100, L501.8100 ####[facility] [address] [place], [address] Hematocrit (Bld) [Volume fraction] 49.9 % Normal 40-54 [facility] Comment on above: Performed By: #### L 501.7900, L500.4050, L100.0100, L501.8100 ####[facility] [address] [place], [address] Hemoglobin (Bld) [Mass/Vol] 15.7 g/dL Normal 13.0-16.5 [facility] Comment on above: Performed By: #### L 501.7900, L500.4050, L100.0100, L501.8100 ####[facility] [address] [place], [address] IG% 0.600 Normal 0.0-0.9 [facility] Comment on above: Result Comment: IG% - Immature Granulocytes (promyelocytes, myelocytes and metamyelocytes) > 1% indicates that a LEFT SHIFT is Present. Performed By: #### L 501.7900, L500.4050, L100.0100, L501.8100 ####[facility] [address] [place], [address] Lymphocytes/100 WBC (Bld) 18.1 % Low 19-41 [facility] Comment on above: Performed By: #### L 501.7900, L500.4050, L100.0100, L501.8100 ####[facility] [address] [place], [address] MCH (RBC) [Entitic mass] 28.1 pg Normal 27.0-32.0 [facility] Comment on above: Performed By: #### L 501.7900, L500.4050, L100.0100, L501.8100 ####[facility] [address] [place], [address] MCHC (RBC) [Mass/Vol] 31.5 g/dL Low 32-36 [facility] Comment on above: Performed By: #### L 501.7900, L500.4050, L100.0100, L501.8100 ####[facility] [address] [place], [address] MCV (RBC) [Entitic vol] 89.4 fL Normal 80-94 [facility] Comment on above: Performed By: #### L 501.7900, L500.4050, L100.0100, L501.8100 ####[facility] [address] [place], [address] Monocytes/100 WBC (Bld) 7.4 % Normal 0-10 [facility] Comment on above: Performed By: #### L 501.7900, L500.4050, L100.0100, L501.8100 ####[facility] [address] [place], [address] Neutrophils/100 WBC (Bld) 71.6 % High 47-70 [facility] Comment on above: Performed By: #### L 501.7900, L500.4050, L100.0100, L501.8100 ####[facility] [address] [place], [address] Nucleated RBC (Bld) [#/Vol] 0 10*3/uL Normal 0-5 [facility] Comment on above: Performed By: #### L 501.7900, L500.4050, L100.0100, L501.8100 ####[facility] [address] [place], [address] Platelet mean volume (Bld) [Entitic vol] 11.4 fL Normal 6.2-12.0 [facility] Comment on above: Performed By: #### L 501.7900, L500.4050, L100.0100, L501.8100 ####[facility] [address] [place], [address] Platelets (Bld) [#/Vol] 188 10*3/uL Normal 150-450 [facility] Comment on above: Performed By: #### L 501.7900, L500.4050, L100.0100, L501.8100 ####[facility] [address] [place], [address] RBC (Bld) [#/Vol] 5.58 10*6/uL Normal 4.6-6.2 [facility] Comment on above: Performed By: #### L 501.7900, L500.4050, L100.0100, L501.8100 ####[facility] [address] [place], [address] RDW SD 45.4 fl High 35.1-43.9 [facility] Comment on above: Performed By: #### L 501.7900, L500.4050, L100.0100, L501.8100 ####[facility] [address] [place], [address] WBC (Bld) [#/Vol] 11.6 10*3/uL High 4.4-11.0 [facility] Comment on above: Performed By: #### L 501.7900, L500.4050, L100.0100, L501.8100 ####[facility] [address] [place], [address] Carbamazepine (Tegretol)on CARBAMAZEPINE < 0.5 Low 4.0-12.0 [facility] Comment on above: Performed By: #### L 501.7900, L500.4050, L100.0100, L501.8100 ####[facility] [address] [place], [address] Comprehensive Metabolic Prof ilon 08-29-2024 Albumin [Mass/Vol] 3.1 g/dL Low 3.2-5.0 [facility] Comment on above: Performed By: #### L 501.7900, L500.4050, L100.0100, L501.8100 ####[facility] [address] [place], [address] Albumin/Globulin [Mass ratio] 1.0 {ratio} Normal 0.9-2.4 [facility] Comment on above: Performed By: #### L 501.7900, L500.4050, L100.0100, L501.8100 ####[facility] [address] [place], [address] ALK P 65 U/L Normal 45-117 [facility] Comment on above: Performed By: #### L 501.7900, L500.4050, L100.0100, L501.8100 ####[facility] [address] [place], [address] ALT [Catalytic activity/Vol] 9 U/L Low 16-61 [facility] Comment on above: Performed By: #### L 501.7900, L500.4050, L100.0100, L501.8100 ####[facility] [address] [place], [address] AST [Catalytic activity/Vol] 5 U/L Low 15-37 [facility] Comment on above: Performed By: #### L 501.7900, L500.4050, L100.0100, L501.8100 ####[facility] [address] [place], [address] Bilirubin [Mass/Vol] 0.20 mg/dL Normal 0.20-1.00 [facility] Comment on above: Result Comment: For patients on eltrombopag therapy, use of Dimension [place] TBIL is not recommended. Performed By: #### L 501.7900, L500.4050, L100.0100, L501.8100 ####[facility] [address] [place], [address] BUN/CRE 24.3 RATIO High 10-20 [facility] Comment on above: Performed By: #### L 501.7900, L500.4050, L100.0100, L501.8100 ####[facility] [address] [place], [address] CA,Total 8.5 mg/dL Normal 8.5-10.1 [facility] Comment on above: Performed By: #### L 501.7900, L500.4050, L100.0100, L501.8100 ####[facility] [address] [place], [address] Chloride [Moles/Vol] 106 mmol/L Normal 98-107 [facility] Comment on above: Performed By: #### L 501.7900, L500.4050, L100.0100, L501.8100 ####[facility] [address] [place], [address] CO2 [Moles/Vol] 31.0 mmol/L Normal 21.0-32.0 [facility] Comment on above: Performed By: #### L 501.7900, L500.4050, L100.0100, L501.8100 ####[facility] [address] [place], [address] Creatinine [Mass/Vol] 0.70 mg/dL Normal 0.70-1.30 [facility] Comment on above: Result Comment: The validity of the calculated GFR GFRAA in patients over 70 years has not been determined. Clinical correlation is essential. Performed By: #### L 501.7900, L500.4050, L100.0100, L501.8100 ####[facility] [address] [place], [address] EST GFR - AA 158 mL/min Normal >60 [facility] Comment on above: Result Comment: Afri can Iraqi GFR Calc Performed By: #### L 501.7900, L500.4050, L100.0100, L501.8100 ####[facility] [address] [place], [address] GAP 6 Normal 5-15 [facility] Comment on above: Performed By: #### L 501.7900, L500.4050, L100.0100, L501.8100 ####[facility] [address] [place], [address] GFR/1.73 sq M.predicted among non-blacks MDRD (S/P/Bld) [Vol rate/Area] 131 mL/min/{1.73_m2} Normal >60 [facility] Comment on above: Result Comment: Non- GFR Calc Performed By: #### L 501.7900, L500.4050, L100.0100, L501.8100 ####[facility] [address] [place], [address] Globulin (S) [Mass/Vol] 3.0 g/dL Normal 2.2-4.2 [facility] Comment on above: Performed By: #### L 501.7900, L500.4050, L100.0100, L501.8100 ####[facility] [address] [place], [address] Glucose [Mass/Vol] 123 mg/dL High 74-106 [facility] Comment on above: Result Comment: Fast ing Glucose result from 100 to 125 mg/dL suggests IMPAIRED HOMEOSTASIS per A.D.A. criteria. Performed By: #### L 501.7900, L500.4050, L100.0100, L501.8100 ####[facility] [address] [place], [address] Potassium [Moles/Vol] 4.1 mmol/L Normal 3.5-5.1 [facility] Comment on above: Performed By: #### L 501.7900, L500.4050, L100.0100, L501.8100 ####[facility] [address] [place], [address] Sodium [Moles/Vol] 142 mmol/L Normal 136-145 [facility] Comment on above: Performed By: #### L 501.7900, L500.4050, L100.0100, L501.8100 ####[facility] [address] [place], [address] T PROT 6.1 g/dL Low 6.4-8.2 [facility] Comment on above: Performed By: #### L 501.7900, L500.4050, L100.0100, L501.8100 ####[facility] [address] [place], [address] Urea nitrogen [Mass/Vol] 17 mg/dL Normal 7-18 [facility] Comment on above: Performed By: #### L 501.7900, L500.4050, L100.0100, L501.8100 ####[facility] [address] [place], [address] Valproic Acid (Depakene) Lev subhash 08-29-2024 VALPROIC ACID 78 ug/mL Normal 50-100 [facility] Comment on above: Performed By: #### L 501.7900, L500.4050, L100.0100, L501.8100 ####[facility] [address] [place], [address] Brain W/WO Contraston 2023 Brain W/WO Contrast [facility] Imaging Services [address] [place] [address] Brain W/WO Contrast MR#: [id number] Acct: [id number] Name: JOSE MCNAMARA Rep #: [id number] : 1980 M 44 From: Logan Causey MD PCP: Dr. Josselyn Galindo MD Status: REG CLI Study: Brain W/WO Contrast Date of Exam: 06/08/24 Exam# [id number] Ordering Dr: Jovita Contreras SHIP SUPERINTENDENT-C [id number] EXAM: MR HEAD WITHOUT AND WITH INTRAVENOUS CONTRAST CLINICAL INDICATION: CONVULSIONS WITH SEIZURE X 6 MONTHS TECHNIQUE: Multiplanar and multisequence MR images of the brain were obtained without and with intravenous contrast. CONTRAST: 12 mL of IV Clariscan. COMPARISON: CT head without contrast 05/25/2024. FINDINGS: BRAIN AND EXTRA-AXIAL SPACES: No focal signal abnormalities throughout the brain parenchyma in all pulse sequences. No nickerson matter heterotopia or neuronal migrational disorders. The limbic lobes are normal and symmetrical. Normal ventricles and cisterns. No communicating or noncommunicating hydrocephalus. Following IV contrast administration, there are no abnormally enhancing lesions intra-axially and extra-axially. No intra- or extra-axial hemorrhage. No evidence of acute infarct or remote cortical-based ischemic infarct. No intracranial mass or mass effect. Posterior fossa structures are normal. SELLA: Unremarkable. Normal sella turcica, pituitary gland, infundibular stalk, optic chiasm and hypothalamus. AUDITORY SYSTEM: Unremarkable. The internal auditory canals are patent. BONES/JOINTS: Unremarkable. No discrete lytic or blastic abnormalities. SINUSES: Unremarkable as visualized. Clear. MASTOID AIR CELLS: Unremarkable as visualized. Clear. ORBITS: Unremarkable as visualized. Both globes, extraocular muscles, optic nerves and retrobulbar fat appear unremarkable. VASCULATURE: Unremarkable as visualized. Normal flow voids in the major intracranial circulation. MRI/Brain W/WO Contrast IMPRESSION: Normal MRI brain with and without contrast including the thin sections through the limbic lobes. Electronically Signed: Logan Causey MD at 8:43 EDT Reading Location ID and State: [facility] / [place] , Service support , CC: COURTNEY Contreras; Dr. Josselyn Galindo MD Truck Safety Inspector: Signed Normal [facility] Absolute lymphocyte countOrd ered By: Elina Chávez on 01-11-2024 Lymphocytes Auto (Unsp spec) [#/Vol] 2.78 10*3/uL 0.83-4.51 [facility] Automated lymphocyte count a s percentage of total leukocytesOrdered By: Elina Chávez on 01-11-2024 Lymphocytes/100 WBC Auto (Unsp spec) 29.7 % 19-41 [facility] Basophil percentageOrdered B y: Elina Chávez on 01-11-2024 Basophils/100 WBC (Bld) 0.4 % 0-1 [facility] Bilirubin [Mass/Vol] 0.20 mg/dL 0.20-1.00 [facility] Comment on above: For patients on eltr ombopag therapy, use of Dimension [place] TBIL is not recommended. Chloride [Moles/Vol] 109 mmol/L 98-107 [facility] Cholesterol [Mass/Vol] 145 mg/dL <200 [facility] Comment on above: <200 mg/dL Desirable 200-240 mg/dL Borderline >240 mg/dL High Risk Eosinophils/100 WBC (Bld) 1.8 % 0-5 [facility] Glucose [Mass/Vol] 94 mg/dL 74-106 [facility] Hemoglobin (Bld) [Mass/Vol] 15.7 g/dL 13.0-16.5 [facility] Monocytes/100 WBC (Bld) 8.4 % 0-10 [facility] Neutrophils (Bld) [#/Vol] 5.5 10*3/uL 2.0-7.7 [facility] Neutrophils/100 WBC (Bld) 59.4 % 47-70 [facility] Potassium [Moles/Vol] 4.5 mmol/L 3.5-5.1 [facility] Protein [Mass/Vol] 7.1 g/dL 6.4-8.2 [facility] Sodium [Moles/Vol] 142 mmol/L 136-145 [facility] Triglyceride [Mass/Vol] 60 mg/dL <199 [facility] Comment on above: The drugs N-Acetylcy steine and Metamizole may falsely depress this assay.Serum Triglycerides Reference Interval Normal <150 mg/dL Borderline high 150 - 199 mg/dL High 200 - 499 mg/dL Very High > or = 500 mg/dL WBC (Bld) [#/Vol] 9.4 10*3/uL 4.4-11.0 [facility] Determination of erythrocyte mean corpuscular volume (MCV)Ordered By: Elina Chávez on 01-11-2024 MCV (RBC) [Entitic vol] 85.9 fL 80-94 [facility] Erythrocyte distribution wid th ratioOrdered By: Elina Chávez on 01-11-2024 Erythrocyte distribution width (RBC) [Ratio] 13.1 % 11.6-14.6 [facility] Erythrocyte distribution wid th standard deviationOrdered By: Elina Chávez on 01-11-2024 Erythrocyte distribution width (RBC) [Entitic vol] 41.0 fL 35.1-43.9 [facility] Hematocrit Auto (Bld) [Volum e fraction]Ordered By: Elina Chávez on 01-11-2024 Hematocrit (Bld) [Volume fraction] 48.7 % 40-54 [facility] Immature granulocytes/100 WB C Auto (Bld)Ordered By: Elina Chávez on 01-11-2024 Immature granulocytes/100 WBC (Bld) 0.300 % 0.0-0.9 [facility] Comment on above: IG% - Immature Granu locytes (promyelocytes, myelocytes and metamyelocytes) > 1% indicates that a LEFT SHIFT is Present. Laboratory - Chemistry and C hemistry - challengeOrdered By: Elina Chávez on 01-11-2024 Albumin/Globulin [Mass ratio] 1.0 {ratio} 0.9-2.4 [facility] ALP [Catalytic activity/Vol] 115 U/L 45-117 [facility] ALT [Catalytic activity/Vol] 21 U/L 16-61 [facility] Cholesterol in HDL [Mass/Vol] 36 mg/dL >40 [facility] Comment on above: The drugs N-Acetylcy steine and Metamizole may falsely depress this assay. Reference Range HDL <40 mg/dL Low HDL Cholesterol HDL >or= 60 mg/dL High HDL Cholesterol Cholesterol in LDL [Mass/Vol] 97 mg/dL 0-130 [facility] CO2 [Moles/Vol] 32.0 mmol/L 21.0-32.0 [facility] Globulin (S) [Mass/Vol] 3.5 g/dL 2.2-4.2 [facility] Urea nitrogen/Creatinine [Mass ratio] 24.4 mg/mg 10-20 [facility] Laboratory - Hematology and Cell countsOrdered By: Elina Chávez on 01-11-2024 MCH (RBC) [Entitic mass] 27.7 pg 27.0-32.0 [facility] MCHC (RBC) [Mass/Vol] 32.2 g/dL 32-36 [facility] Nucleated RBC/100 WBC (Bld) [Ratio] 0 % 0-5 [facility] Platelet mean volume (Bld) [Entitic vol] 10.9 fL 6.2-12.0 [facility] Platelets (Bld) [#/Vol] 223 10*3/uL 150-450 [facility] No Panel InformationOrdered By: Elina Chávez on 01-11-2024 Estimated GFR (MDRD) Amer 159 mL/min >60 [facility] Comment on above: GFR Calc Estimated GFR (MDRD) Non-Af Amer 132 mL/min >60 [facility] Comment on above: Non- GFR Calc VLDL Cholesterol 12 mg/dL 5-40 [facility] RBC Auto (Bld) [#/Vol]Ordere d By: Elina Chávez on 01-11-2024 RBC (Bld) [#/Vol] 5.67 10*6/uL 4.6-6.2 [facility] Serum or plasma calcium cristina urement (mass/volume)Ordered By: lEina Chávez on 01-11-2024 Calcium [Mass/Vol] 8.8 mg/dL 8.5-10.1 [facility] Serum or plasma creatinine m easurement (mass/volume)Ordered By: Elina Chávez on 01-11-2024 Creatinine [Mass/Vol] 0.70 mg/dL 0.70-1.30 [facility] Comment on above: The validity of the calculated GFR & GFRAA in patients over 70 years has not been determined. Clinical correlation is essential. Serum or plasma oxcarbazepin e measurement (mass/volume)Ordered By: Elina Chávez on 01-11-2024 OXcarbazepine [Mass/Vol] 22 ug/mL 10-35 [facility] Comment on above: This test was develo ped and its performance characteristicsdetermined by [employer]. It has not been cleared orapproved by the Food and Drug Administration. Detection Limit = 1Performed at: [facility] [id number] Director: Debby Cruz MD, Phone: [phone] Serum or plasma urea nitroge n measurement (mass/volume)Ordered By: Elina Chávez on 01-11-2024 Urea nitrogen [Mass/Vol] 17 mg/dL 7-18 [facility] Thin prep Papanicolaou smear with manual screeningOrdered By: Elina Chávez on 01-11-2024 Thin prep Papanicolaou smear with manual screening 3.6 g/dL 3.2-5.0 [facility] Thin prep Papanicolaou smear with manual screening 13 U/L 15-37 [facility] Thin prep Papanicolaou smear with manual screening 1 5-15 [facility] Laboratory - Microbiology an d Antimicrobial susceptibilityOrdered By: Jovita Contreras on 01-07-2024 SARS-CoV-2 (COVID-19) RNA MEME+probe Ql (Unsp spec) [facility] Absolute lymphocyte countOrd ered By: Evaristo Pacheco on 12-21-2023 Lymphocytes Auto (Unsp spec) [#/Vol] 1.26 10*3/uL 0.83-4.51 [facility] Automated lymphocyte count a s percentage of total leukocytesOrdered By: Evaristo Pacheco on 12-21-2023 Lymphocytes/100 WBC Auto (Unsp spec) 19.0 % 19-41 [facility] Basophil percentageOrdered B y: Evaristo Pacheco on 12-21-2023 Basophils/100 WBC (Bld) 0.9 % 0-1 [facility] Bilirubin [Mass/Vol] 0.30 mg/dL 0.20-1.00 [facility] Comment on above: For patients on eltr ombopag therapy, use of Dimension [place] TBIL is not recommended. Chloride [Moles/Vol] 105 mmol/L 98-107 [facility] Eosinophils/100 WBC (Bld) 3.2 % 0-5 [facility] Glucose [Mass/Vol] 143 mg/dL 74-106 [facility] Comment on above: Fasting Glucose resu lt greater than or equal to 126 mg/dL suggests DIABETES MELLITUS per A.D.A. criteria. Hemoglobin (Bld) [Mass/Vol] 15.6 g/dL 13.0-16.5 [facility] Monocytes/100 WBC (Bld) 8.2 % 0-10 [facility] Neutrophils (Bld) [#/Vol] 4.5 10*3/uL 2.0-7.7 [facility] Neutrophils/100 WBC (Bld) 68.4 % 47-70 [facility] Potassium [Moles/Vol] 4.3 mmol/L 3.5-5.1 [facility] Protein [Mass/Vol] 7.1 g/dL 6.4-8.2 [facility] Sodium [Moles/Vol] 138 mmol/L 136-145 [facility] WBC (Bld) [#/Vol] 6.6 10*3/uL 4.4-11.0 [facility] Blood manual differential co mment interpretation (narrative result)Ordered By: Evaristo Pacheco on 12-21-2023 Manual differential comment Hood (Bld) [Interp] SCANNED [facility] Determination of erythrocyte mean corpuscular volume (MCV)Ordered By: Evaristo Pacheco on 12-21-2023 MCV (RBC) [Entitic vol] 82.6 fL 80-94 [facility] Direct bilirubinOrdered By: Evaristo Pacheco on 12-21-2023 Bilirubin.direct [Mass/Vol] 0.09 mg/dL 0.00-0.30 [facility] Erythrocyte distribution wid th ratioOrdered By: Evaristo Pacheco on 12-21-2023 Erythrocyte distribution width (RBC) [Ratio] 12.5 % 11.6-14.6 [facility] Erythrocyte distribution wid th standard deviationOrdered By: Evaristo Pacheco on 12-21-2023 Erythrocyte distribution width (RBC) [Entitic vol] 37.6 fL 35.1-43.9 [facility] Hematocrit Auto (Bld) [Volum e fraction]Ordered By: Evaristo Pacheco on 12-21-2023 Hematocrit (Bld) [Volume fraction] 47.4 % 40-54 [facility] Immature granulocytes/100 WB C Auto (Bld)Ordered By: Evaristo Pacheco on 12-21-2023 Immature granulocytes/100 WBC (Bld) 0.300 % 0.0-0.9 [facility] Comment on above: IG% - Immature Granu locytes (promyelocytes, myelocytes and metamyelocytes) > 1% indicates that a LEFT SHIFT is Present. Laboratory - Chemistry and C hemistry - challengeOrdered By: Evaristo Pacheco on 12-21-2023 ALP [Catalytic activity/Vol] 137 U/L 45-117 [facility] ALT [Catalytic activity/Vol] 24 U/L 16-61 [facility] CO2 [Moles/Vol] 30.0 mmol/L 21.0-32.0 [facility] Globulin (S) [Mass/Vol] 3.4 g/dL 2.2-4.2 [facility] Lipase [Catalytic activity/Vol] 18 U/L 13-75 [facility] Comment on above: Please note:LIPASE r evised reference range effective 23. New Lipase methodology. Expected to produce lower values than the previous assay method. NEW Reference Range: 13 - 75 U/L Urea nitrogen/Creatinine [Mass ratio] 14.5 mg/mg 10-20 [facility] Laboratory - Hematology and Cell countsOrdered By: Evaristo Pacheco on 12-21-2023 MCH (RBC) [Entitic mass] 27.2 pg 27.0-32.0 [facility] MCHC (RBC) [Mass/Vol] 32.9 g/dL 32-36 [facility] Nucleated RBC/100 WBC (Bld) [Ratio] 0 % 0-5 [facility] Platelets (Bld) [#/Vol] 198 10*3/uL 150-450 [facility] No Panel InformationOrdered By: Evaristo Pacheco on 12-21-2023 Estimated Creatinine Clearance Calc 104.84 ml/min [facility] Estimated GFR (MDRD) Amer 144 mL/min >60 [facility] Comment on above: GFR Calc Estimated GFR (MDRD) Non-Af Amer 119 mL/min >60 [facility] Comment on above: Non- GFR Calc Platelet mean volume Adrián-Ec ker (Bld) [Entitic vol]Ordered By: Evaristo Pacheco on 12-21-2023 Platelet mean volume (Bld) [Entitic vol] 10.7 fL 6.2-12.0 [facility] RBC Auto (Bld) [#/Vol]Ordere d By: Evaristo Pacheco on 12-21-2023 RBC (Bld) [#/Vol] 5.74 10*6/uL 4.6-6.2 [facility] Serum or plasma calcium cristina urement (mass/volume)Ordered By: Evaristo Pacheco on 12-21-2023 Calcium [Mass/Vol] 8.9 mg/dL 8.5-10.1 [facility] Serum or plasma creatinine m easurement (mass/volume)Ordered By: Evaristo Pacheco on 12-21-2023 Creatinine [Mass/Vol] 0.76 mg/dL 0.70-1.30 [facility] Comment on above: The validity of the calculated GFR & GFRAA in patients over 70 years has not been determined. Clinical correlation is essential. Serum or plasma urea nitroge n measurement (mass/volume)Ordered By: Evaristo Pacheco on 12-21-2023 Urea nitrogen [Mass/Vol] 11 mg/dL 7-18 [facility] Thin prep Papanicolaou smear with manual screeningOrdered By: Evaristo Pacheco on 12-21-2023 Thin prep Papanicolaou smear with manual screening 3.7 g/dL 3.2-5.0 [facility] Thin prep Papanicolaou smear with manual screening 7 U/L 15-37 [facility] Thin prep Papanicolaou smear with manual screening 3 5-15 [facility] Hepatitis A Antibody, Totalo n 12-16-2023 HAV Ab Ql (S) Negative Negative [facility] Interpretation and review of laboratory results Normal [facility] Test performed using Ella MIGUEL immunoassay system [facility] HIV 1/2 Screen ( Generati on)on 09-11-2023 HIV 1+2 Ab+HIV1 p24 Ag IA Ql Negative Negative [facility] This assay screens f or the presence of HIV-1, HIV-2 antibodies and for the presence of HIV-1 antigen. Test performed using Ella MIGUEL immunoassay system [facility] Hepatitis B Core Antibody, T otalon 09-11-2023 HBV core Ab Ql (S) Negative Negative [facility] Hepatitis B Surface Antibody on 09-11-2023 HBV surface Ab Ql (S) Negative Negative [facility] Hepatitis B Surface Antigeno n 09-11-2023 HBV surface Ag Ql (S) Negative Negative [facility] No Panel Informationon 09-11 Interpretation and review of laboratory results Normal [facility] Test performed using Ell[employer] MIG[employer] immunoassay system [facility] Creatinine [Mass/Vol]on 07-17 GFR/1.73 sq M.predicted CKD-EPI (S/P/Bld) [Vol rate/Area] 113 - PINF [facility] Comment on above: Estimated GFR was ca lculated using the 2020 CKD-EPI creatinine equation. [facility] Laborator y Services has implemented the eGFR calculation approach that does not have a coefficient for race that conforms to the NKF-ASN Task Force Recommendations. [facility] ESR Westergren method (Bld) [Velocity]on 07-30-2023 ESR (Bld) [Velocity] 8 mm/h [facility] Interpretation and review of laboratory results Normal [facility] Hepatic function 2000 panelo n 07-30-2023 Albumin [Mass/Vol] 3.9 g/dL 3.2 - 5.2 g/dL [facility] ALP [Catalytic activity/Vol] 115 U/L 40 - 150 U/L [facility] ALT [Catalytic activity/Vol] 26 U/L 14 - 65 U/L [facility] AST [Catalytic activity/Vol] 15 U/L 0-50 U/L [facility] Bilirubin [Mass/Vol] 0.6 mg/dL 0.0 - 1 .3 mg/dL [facility] Bilirubin.conjugated [Mass/Vol] 0.2 mg/dL 0.0 - 0.4 mg/dL [facility] Protein [Mass/Vol] 7.5 g/dL 6.0 - 8.0 g/dL [facility] Laboratory - Chemistry and C hemistry - challengeon 07-30-2023 Creatinine [Mass/Vol] 0.80 mg/dL 0.50 - 1.30 mg/dL [facility] CRP [Mass/Vol] 5.8 mg/L NINF - 10.0 mg/L [facility] No Panel Informationon 07-30 Interpretation and review of laboratory results Normal [facility] No acute osseous abnormality or significant degenerative changes of the left hand. Workstation ID: [id number] [employer] EXAMINATION: XR HAND LEFT 3+ VIEWS (STANDARD) 07/30/2023 9:24 am HISTORY: ORDERING SYSTEM PROVIDED HISTORY: joint pain, please eval for inflammatory arthritis, TECHNOLOGIST PROVIDED HISTORY: Illness/Other Reason for exam: joint pain, please eval for inflammatory arthritis Cancer History: U Surgery, RadiationHistory: U Encounter Type: Initial Additional signs and symptoms: ORDERING SYSTEM PROVIDED DIAGNOSIS CODES: M35.00 Sjogren's syndrome, with unspecified organ involvement ([facility]) M25.50 Polyarthralgia COMPARISON: None. FINDINGS: No acute fracture or dislocation. The joint spaces are intact. No periarticular erosive changes. Unremarkable soft tissues. [employer] Ruth Sue MD - 07/30/2023 EXAMINATION: XR HAND LEFT 3+ VIEWS (STANDARD) 07/30/2023 9:24 am HISTORY: ORDERING SYSTEM PROVIDED HISTORY: joint pain, please eval for inflammatory arthritis, TECHNOLOGIST PROVIDED HISTORY: Illness/Other Reason for exam: joint pain, please eval for inflammatory arthritis Cancer History: U Surgery, RadiationHistory: U Encounter Type: Initial Additional signs and symptoms: ORDERING SYSTEM PROVIDED DIAGNOSIS CODES: M35.00 Sjogren's syndrome, with unspecified organ involvement (HCC) M25.50 Polyarthralgia COMPARISON: None. FINDINGS: No acute fracture or dislocation. The joint spaces are intact. No periarticular erosive changes. Unremarkable soft tissues. IMPRESSION: No acute osseous abnormality or significant degenerative changes of the left hand. Workstation ID: [id number] [facility] No acute osseous abnormality or significant degenerative changes of the right foot. Workstation ID: [id number] [employer] RIS EXAMINATION: XR FOOT RIGHT 3+ VIEWS (STANDARD) 07/30/2023 9:24 am HISTORY: ORDERING SYSTEM PROVIDED HISTORY: joint pain, please eval for inflammatory arthritis, TECHNOLOGIST PROVIDED HISTORY: Illness/Other Reason for exam: joint pain, please eval for inflammatory arthritis Cancer History: U Surgery, RadiationHistory: U Encounter Type: Initial Additional signs and symptoms: ORDERING SYSTEM PROVIDED DIAGNOSIS CODES: M35.00 Sjogren's syndrome, with unspecified organ involvement (HCC) M25.50 Polyarthralgia COMPARISON: None. FINDINGS: No acute fracture or dislocation. The joint spaces are preserved. No periarticular erosive changes. Unremarkable soft tissues. [facility] Ruth Sue MD - 07/30/2023 EXAMINATION: XR FOOT RIGHT 3+ VIEWS (STANDARD) 07/30/2023 9:24 am HISTORY: ORDERING SYSTEM PROVIDED HISTORY: joint pain, please eval for inflammatory arthritis, TECHNOLOGIST PROVIDED HISTORY: Illness/Other Reason for exam: joint pain, please eval for inflammatory arthritis Cancer History: U Surgery, RadiationHistory: U Encounter Type: Initial Additional signs and symptoms: ORDERING SYSTEM PROVIDED DIAGNOSIS CODES: M35.00 Sjogren's syndrome, with unspecified organ involvement (HCC) M25.50 Polyarthralgia COMPARISON: None. FINDINGS: No acute fracture or dislocation. The joint spaces are preserved. No periarticular erosive changes. Unremarkable soft tissues. IMPRESSION: No acute osseous abnormality or significant degenerative changes of the right foot. Workstation ID: [id number] [facility] No acute osseous abnormality or significant degenerative changes of the right hand. Workstation ID: [id number] [employer] RIS EXAMINATION: XR HAND RIGHT 3+ VIEWS (STANDARD) 07/30/2023 9:24 am HISTORY: ORDERING SYSTEM PROVIDED HISTORY: joint pain, please eval for inflammatory arthritis, TECHNOLOGIST PROVIDED HISTORY: Illness/Other Reason for exam: joint pain, please eval for inflammatory arthritis Cancer History: U Surgery, RadiationHistory: U Encounter Type: Initial Additional signs and symptoms: ORDERING SYSTEM PROVIDED DIAGNOSIS CODES: M35.00 Sjogren's syndrome, with unspecified organ involvement (HCC) M25.50 Polyarthralgia COMPARISON: None. FINDINGS: No fracture or dislocation.The joint spaces are well preserved. No periarticular erosive changes.Unremarkable soft tissues. [employer] Ruth Sue MD - 07/30/2023 EXAMINATION: XR HAND RIGHT 3+ VIEWS (STANDARD) 07/30/2023 9:24 am HISTORY: ORDERING SYSTEM PROVIDED HISTORY: joint pain, please eval for inflammatory arthritis, TECHNOLOGIST PROVIDED HISTORY: Illness/Other Reason for exam: joint pain, please eval for inflammatory arthritis Cancer History: U Surgery, RadiationHistory: U Encounter Type: Initial Additional signs and symptoms: ORDERING SYSTEM PROVIDED DIAGNOSIS CODES: M35.00 Sjogren's syndrome, with unspecified organ involvement (HCC) M25.50 Polyarthralgia COMPARISON: None. FINDINGS: No fracture or dislocation.The joint spaces are well preserved. No periarticular erosive changes.Unremarkable soft tissues. IMPRESSION: No acute osseous abnormality or significant degenerative changes of the right hand. Workstation ID: [id number] [facility] No acute osseous abnormality of the left foot. Workstation ID: [id number] [employer] EXAMINATION: XR FOOT LEFT 3+ VIEWS (STANDARD) 07/30/2023 9:24 am HISTORY: ORDERING SYSTEM PROVIDED HISTORY: joint pain, please eval for inflammatory arthritis, TECHNOLOGIST PROVIDED HISTORY: Illness/Other Reason for exam: joint pain, please eval for inflammatory arthritis Cancer History: U Surgery, RadiationHistory: U Encounter Type: Initial Additional signs and symptoms: ORDERING SYSTEM PROVIDED DIAGNOSIS CODES: M35.00 Sjogren's syndrome, with unspecified organ involvement (HCC) M25.50 Polyarthralgia COMPARISON: None. FINDINGS: No acute left foot fracture or dislocation. The joint spaces are preserved. Unremarkable soft tissues. [employer] Ruth Sue MD - 07/30/2023 EXAMINATION: XR FOOT LEFT 3+ VIEWS (STANDARD) 07/30/2023 9:24 am HISTORY: ORDERING SYSTEM PROVIDED HISTORY: joint pain, please eval for inflammatory arthritis, TECHNOLOGIST PROVIDED HISTORY: Illness/Other Reason for exam: joint pain, please eval for inflammatory arthritis Cancer History: U Surgery, RadiationHistory: U Encounter Type: Initial Additional signs and symptoms: ORDERING SYSTEM PROVIDED DIAGNOSIS CODES: M35.00 Sjogren's syndrome, with unspecified organ involvement (HCC) M25.50 Polyarthralgia COMPARISON: None. FINDINGS: No acute left foot fracture or dislocation. The joint spaces are preserved. Unremarkable soft tissues. IMPRESSION: No acute osseous abnormality of the left foot. Workstation ID: [id number] [facility] Radiology Study observation (narrative) [facility] Radiology Study observation (narrative) [facility] Radiology Study observation (narrative) [facility] Panel InformationOrdered By: Ruth Salcedo on 07-30-[address] [facility] Work Phone: XR CHEST AP/PA AND LATon XR CHEST AP/PA AND LAT EXAMINATION: XR CHEST AP/PA AND LAT 07/30/2023 9:24 am HISTORY: ORDERING SYSTEM PROVIDED HISTORY: Shortness of breath, TECHNOLOGIST PROVIDED HISTORY: Illness/Other Reason for exam: SHORTNESS OF BREATH Cancer History: U Surgery, RadiationHistory: U Encounter Type: Initial Additional signs and symptoms: ORDERING SYSTEM PROVIDED DIAGNOSIS CODES: M35.00 Sjogren's syndrome, with unspecified organ involvement (HCC) M25.50 Polyarthralgia R06.02 Shortness of breath COMPARISON: None. FINDINGS: Normal cardiomediastinal contours. Clear lungs. No pleural effusion or pneumothorax. No acute osseous abnormality. IMPRESSION: No acute cardiopulmonary process. Workstation ID: [id number] Dictated by: RUTH SUE on ThuJul 30, 2023 10:05:51 AM EDT Transcribed by: RUTH SUE on ThuJul 30, 2023 10:05:51 AM EDT Finalized by: RUTH SUE on ThuJul 30, 2023 10:05:51 AM EDT [facility] Comment on above: Order Comment: Injur y/Trauma or Illness?:Illness/Other How long have you had these symptoms (acute/chronic)?:Acute Reason for exam?:SHORTNESS OF BREATH History of cancer?:U Surgeries, chemotherapy, or radiation?:U Type of Exam?:Initial Additional signs and symptoms?: XR FOOT LEFT 3+ VIEWS (STAND JOHN)on 07-30-2023 XR FOOT LEFT 3+ VIEWS (STANDARD) EXAMINATION: XR FOOT LEFT 3+ VIEWS (STANDARD) 07/30/2023 9:24 am HISTORY: ORDERING SYSTEM PROVIDED HISTORY: joint pain, please eval for inflammatory arthritis, TECHNOLOGIST PROVIDED HISTORY: Illness/Other Reason for exam: joint pain, please eval for inflammatory arthritis Cancer History: U Surgery, RadiationHistory: U Encounter Type: Initial Additional signs and symptoms: ORDERING SYSTEM PROVIDED DIAGNOSIS CODES: M35.00 Sjogren's syndrome, with unspecified organ involvement (HCC) M25.50 Polyarthralgia COMPARISON: None. FINDINGS: No acute left foot fracture or dislocation. The joint spaces are preserved. Unremarkable soft tissues. IMPRESSION: No acute osseous abnormality of the left foot. Workstation ID: [id number] Dictated by: RUTH SUE on ThuJul 30, 2023 10:02:19 AM EDT Transcribed by: RUTH SUE on ThuJul 30, 2023 10:02:19 AM EDT Finalized by: RUTH SUE on ThuJul 30, 2023 10:02:19 AM EDT [facility] Comment on above: Order Comment: Injur y/Trauma or Illness?:Illness/Other How long have you had these symptoms (acute/chronic)?:Acute Reason for exam?:joint pain, please eval for inflammatory arthritis History of cancer?:U Surgeries, chemotherapy, or radiation?:U Type of Exam?:Initial Additional signs and symptoms?: XR FOOT RIGHT 3+ VIEWS (EMI DARD)on 07-30-2023 XR FOOT RIGHT 3+ VIEWS (STANDARD) EXAMINATION: XR FOOT RIGHT 3+ VIEWS (STANDARD) 07/30/2023 9:24 am HISTORY: ORDERING SYSTEM PROVIDED HISTORY: joint pain, please eval for inflammatory arthritis, TECHNOLOGIST PROVIDED HISTORY: Illness/Other Reason for exam: joint pain, please eval for inflammatory arthritis Cancer History: U Surgery, RadiationHistory: U Encounter Type: Initial Additional signs and symptoms: ORDERING SYSTEM PROVIDED DIAGNOSIS CODES: M35.00 Sjogren's syndrome, with unspecified organ involvement (HCC) M25.50 Polyarthralgia COMPARISON: None. FINDINGS: No acute fracture or dislocation. The joint spaces are preserved. No periarticular erosive changes. Unremarkable soft tissues. IMPRESSION: No acute osseous abnormality or significant degenerative changes of the right foot. Workstation ID: [id number] Dictated by: RUTH SUE on ThuJul 30, 2023 10:05:18 AM EDT Transcribed by: RUTH SUE on Mally Jul 30, 2023 10:05:18 AM EDT Finalized by: RUTH SUE on Mally Jul 30, 2023 10:05:18 AM EDT [facility] Comment on above: Order Comment: Injur y/Trauma or Illness?:Illness/Other How long have you had these symptoms (acute/chronic)?:Acute Reason for exam?:joint pain, please eval for inflammatory arthritis History of cancer?:U Surgeries, chemotherapy, or radiation?:U Type of Exam?:Initial Additional signs and symptoms?: XR HAND LEFT 3+ VIEWS (STAND JOHN)on 07-30-2023 XR HAND LEFT 3+ VIEWS (STANDARD) EXAMINATION: XR HAND LEFT 3+ VIEWS (STANDARD) 07/30/2023 9:24 am HISTORY: ORDERING SYSTEM PROVIDED HISTORY: joint pain, please eval for inflammatory arthritis, TECHNOLOGIST PROVIDED HISTORY: Illness/Other Reason for exam: joint pain, please eval for inflammatory arthritis Cancer History: U Surgery, RadiationHistory: U Encounter Type: Initial Additional signs and symptoms: ORDERING SYSTEM PROVIDED DIAGNOSIS CODES: M35.00 Sjogren's syndrome, with unspecified organ involvement ([facility]) M25.50 Polyarthralgia COMPARISON: None. FINDINGS: No acute fracture or dislocation. The joint spaces are intact. No periarticular erosive changes. Unremarkable soft tissues. IMPRESSION: No acute osseous abnormality or significant degenerative changes of the left hand. Workstation ID: [id number] Dictated by: RUTH SUE on ThuJul 30, 2023 10:07:09 AM EDT Transcribed by: RUTH SUE on ThuJul 30, 2023 10:07:09 AM EDT Finalized by: RUTH SUE on Mally Jul 30, 2023 10:07:09 AM EDT [facility] Comment on above: Order Comment: Injur y/Trauma or Illness?:Illness/Other How long have you had these symptoms (acute/chronic)?:Acute Reason for exam?:joint pain, please eval for inflammatory arthritis History of cancer?:U Surgeries, chemotherapy, or radiation?:U Type of Exam?:Initial Additional signs and symptoms?: XR HAND RIGHT 3+ VIEWS (EMI COTTRELL)on 07-30-2023 XR HAND RIGHT 3+ VIEWS (STANDARD) EXAMINATION: XR HAND RIGHT 3+ VIEWS (STANDARD) 07/30/2023 9:24 am HISTORY: ORDERING SYSTEM PROVIDED HISTORY: joint pain, please eval for inflammatory arthritis, TECHNOLOGIST PROVIDED HISTORY: Illness/Other Reason for exam: joint pain, please eval for inflammatory arthritis Cancer History: U Surgery, RadiationHistory: U Encounter Type: Initial Additional signs and symptoms: ORDERING SYSTEM PROVIDED DIAGNOSIS CODES: M35.00 Sjogren's syndrome, with unspecified organ involvement ([facility]) M25.50 Polyarthralgia COMPARISON: None. FINDINGS: No fracture or dislocation.The joint spaces are well preserved. No periarticular erosive changes.Unremarkable soft tissues. IMPRESSION: No acute osseous abnormality or significant degenerative changes of the right hand. Workstation ID: [id number] Dictated by: RUTH SUE on ThuJul 30, 2023 10:03:58 AM EDT Transcribed by: RUTH SUE on ThuJul 30, 2023 10:03:58 AM EDT Finalized by: RUTH SUE on ThuJul 30, 2023 10:03:58 AM EDT [facility] Comment on above: Order Comment: Injur y/Trauma or Illness?:Illness/Other How long have you had these symptoms (acute/chronic)?:Acute Reason for exam?:joint pain, please eval for inflammatory arthritis History of cancer?:U Surgeries, chemotherapy, or radiation?:U Type of Exam?:Initial Additional signs and symptoms?: Absolute lymphocyte countOrd ered By: Josselyn Galindo on 06-17-2023 Lymphocytes Auto (Unsp spec) [#/Vol] 1.02 10*3/uL 0.83-4.51 [facility] Basophil percentageOrdered B y: Josselyn Galindo on 06-17-2023 Basophils/100 WBC (Bld) 0.9 % 0-1 [facility] Bilirubin [Mass/Vol] 0.20 mg/dL 0.20-1.00 [facility] Comment on above: For patients on eltr ombopag therapy, use of Dimension [place] TBIL is not recommended. Chloride [Moles/Vol] 110 mmol/L 98-107 [facility] Cholesterol [Mass/Vol] 132 mg/dL <200 [facility] Comment on above: <200 mg/dL Desirable 200-240 mg/dL Borderline >240 mg/dL High Risk Eosinophils/100 WBC (Bld) 3.9 % 0-5 [facility] Glucose [Mass/Vol] 108 mg/dL 74-106 [facility] Comment on above: Fasting Glucose resu lt from 100 to 125 mg/dL suggests IMPAIRED HOMEOSTASIS per A.D.A. criteria. Neutrophils (Bld) [#/Vol] 3.5 10*3/uL 2.0-7.7 [facility] Neutrophils/100 WBC (Bld) 65.8 % 47-70 [facility] Potassium [Moles/Vol] 4.1 mmol/L 3.5-5.1 [facility] Protein [Mass/Vol] 7.0 g/dL 6.4-8.2 [facility] Sodium [Moles/Vol] 141 mmol/L 136-145 [facility] Triglyceride [Mass/Vol] 105 mg/dL <199 [facility] Comment on above: The drugs N-Acetylcy steine and Metamizole may falsely depress this assay.Serum Triglycerides Reference Interval Normal <150 mg/dL Borderline high 150 - 199 mg/dL High 200 - 499 mg/dL Very High > or = 500 mg/dL WBC (Bld) [#/Vol] 5.3 10*3/uL 4.4-11.0 [facility] Blood erythrocytes count (nu mber/volume)Ordered By: Josselyn Galindo on 06-17-2023 RBC (Bld) [#/Vol] 5.45 10*6/uL 4.6-6.2 [facility] Blood hemoglobin measurement (mass/volume)Ordered By: Josselyn Galindo on 06-17-2023 Hemoglobin (Bld) [Mass/Vol] 15.9 g/dL 13.0-16.5 [facility] Blood lymphocytes/100 leukoc ytesOrdered By: Josselyn Galindo on 06-17-2023 Lymphocytes/100 WBC (Bld) 19.1 % 19-41 [facility] Blood monocytes/100 leukocyt esOrdered By: Josselyn Galindo on 06-17-2023 Monocytes/100 WBC (Bld) 9.9 % 0-10 [facility] Blood platelet mean volumeOr dered By: Josselyn Galindo on 06-17-2023 Platelet mean volume (Bld) [Entitic vol] 10.6 fL 6.2-12.0 [facility] Determination of erythrocyte mean corpuscular volume (MCV)Ordered By: Josselyn Galindo on 06-17-2023 MCV (RBC) [Entitic vol] 90.6 fL 80-94 [facility] Hematocrit Auto (Bld) [Volum e fraction]Ordered By: Josselyn Galindo on 06-17-2023 Hematocrit (Bld) [Volume fraction] 49.4 % 40-54 [facility] Laboratory - Chemistry and C hemistry - challengeOrdered By: Josselyn Galindo on 06-17-2023 ALP [Catalytic activity/Vol] 98 U/L 45-117 [facility] ALT [Catalytic activity/Vol] 19 U/L 16-61 [facility] CO2 [Moles/Vol] 27.0 mmol/L 21.0-32.0 [facility] Globulin (S) [Mass/Vol] 3.8 g/dL 2.2-4.2 [facility] Urea nitrogen/Creatinine [Mass ratio] 14.8 mg/mg 10-20 [facility] Laboratory - Hematology and Cell countsOrdered By: Josselyn Galindo on 06-17-2023 Erythrocyte distribution width (RBC) [Entitic vol] 43.2 fL 35.1-43.9 [facility] Erythrocyte distribution width (RBC) [Ratio] 13.1 % 11.6-14.6 [facility] Immature granulocytes/100 WBC (Bld) 0.400 % 0.0-0.9 [facility] Comment on above: IG% - Immature Granu locytes (promyelocytes, myelocytes and metamyelocytes) > 1% indicates that a LEFT SHIFT is Present. MCH (RBC) [Entitic mass] 29.2 pg 27.0-32.0 [facility] Nucleated RBC/100 WBC (Bld) [Ratio] 0 % 0-5 [facility] MCHC Auto (RBC) [Mass/Vol]Or dered By: Josselyn Galindo on 06-17-2023 MCHC (RBC) [Mass/Vol] 32.2 g/dL 32-36 [facility] No Panel InformationOrdered By: Josselyn Galindo on 06-17-2023 Estimated GFR (MDRD) Amer 166 mL/min >60 [facility] Comment on above: GFR Calc Estimated GFR (MDRD) Non-Af Amer 137 mL/min >60 [facility] Comment on above: Non- GFR Calc Prostate Specific Antigen Screen 0.40 ng/mL 0.00-4.00 [facility] Comment on above: This test was perfor med using the TPSA assay method for the[employer] chemistry system. Values obtained with differentassay methods cannot be used interchangably.When changing PSA assays in the course of monitoring apatient, additional sequential testing should be carriedout to confirm baseline values. Thyroid Stimulating Hormone (TSH) 0.66 uIU/mL 0.358-3.74 [facility] Platelets bldOrdered By: Omar Galindo on 06-17-2023 Platelets (Bld) [#/Vol] 191 10*3/uL 150-450 [facility] Serum or plasma albumin cristina urement (mass/volume)Ordered By: Josselyn Galindo on 06-17-2023 Albumin [Mass/Vol] 3.2 g/dL 3.2-5.0 [facility] Serum or plasma albumin/glob ulin mass ratioOrdered By: Josselyn Galindo on 06-17-2023 Albumin/Globulin [Mass ratio] 0.8 {ratio} 0.9-2.4 [facility] Serum or plasma calcium cristina urement (mass/volume)Ordered By: Josselyn Galindo on 06-17-2023 Calcium [Mass/Vol] 8.3 mg/dL 8.5-10.1 [facility] Serum or plasma cholesterol in HDL measurement (mass/volume)Ordered By: Josselyn Galindo on 06-17-2023 Cholesterol in HDL [Mass/Vol] 37 mg/dL >40 [facility] Comment on above: The drugs N-Acetylcy steine and Metamizole may falsely depress this assay. Reference Range HDL <40 mg/dL Low HDL Cholesterol HDL >or= 60 mg/dL High HDL Cholesterol Serum or plasma cholesterol in VLDL measurement (mass/volume)Ordered By: Josselyn Galindo on 06-17-2023 Cholesterol in VLDL [Mass/Vol] 21 mg/dL 5-40 [facility] Serum or plasma creatinine m easurement (mass/volume)Ordered By: Josselyn Galindo on 06-17-2023 Creatinine [Mass/Vol] 0.68 mg/dL 0.70-1.30 [facility] Comment on above: The validity of the calculated GFR & GFRAA in patients over 70 years has not been determined. Clinical correlation is essential. Serum or plasma low density lipoprotein (LDL) cholesterol measurement (mass/volume)Ordered By: Josselyn Galindo on 06-17-2023 Cholesterol in LDL [Mass/Vol] 74 mg/dL 0-130 [facility] Serum or plasma urea nitroge n measurement (mass/volume)Ordered By: Josselyn Galindo on 06-17-2023 Urea nitrogen [Mass/Vol] 10 mg/dL 7-18 [facility] Thin prep Papanicolaou smear with manual screeningOrdered By: Josselyn Galindo on 06-17-2023 Thin prep Papanicolaou smear with manual screening 17 U/L 15-37 [facility] Thin prep Papanicolaou smear with manual screening 4 5-15 [facility] Whole blood hemoglobin A1c/t otal hemoglobin ratio (mass fraction)Ordered By: Josselyn Galindo on 06-17-2023 HbA1c (Bld) [Mass fraction] 5.1 % 3.8-5.6 [facility] Comment on above: Normal < 5.7 % Predi abetic 5.7 - 6.4 % Diabetic >or= 6.5 % Please note range changes. 06-15-2023 36 Manuela is calling [id number] in for an update. She was advised the office is scheduling into next year and is no longer needing to schedule the patient. 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 Archibald Practice: [facility] [place] Rheumatology Chief Complaint/Reason for Call: Manuela states [...] business hours to return their call: No Normal [facility] Absolute lymphocyte countOrd ered By: Keny Friend on 03-27-2023 Lymphocytes Auto (Unsp spec) [#/Vol] 1.71 10*3/uL 0.83-4.51 [facility] Basophil percentageOrdered B y: Keny Friend on 03-27-2023 Basophils/100 WBC (Bld) 0.6 % 0-1 [facility] Bilirubin [Mass/Vol] 0.60 mg/dL 0.20-1.00 [facility] Comment on above: For patients on eltr ombopag therapy, use of Dimension [place] TBIL is not recommended. Chloride [Moles/Vol] 101 mmol/L 98-107 [facility] Eosinophils/100 WBC (Bld) 0.6 % 0-5 [facility] Glucose [Mass/Vol] 119 mg/dL 74-106 [facility] Comment on above: Fasting Glucose resu lt from 100 to 125 mg/dL suggests IMPAIRED HOMEOSTASIS per A.D.A. criteria. Neutrophils (Bld) [#/Vol] 11.2 10*3/uL 2.0-7.7 [facility] Neutrophils/100 WBC (Bld) 77.7 % 47-70 [facility] Potassium [Moles/Vol] 3.7 mmol/L 3.5-5.1 [facility] Protein [Mass/Vol] 7.4 g/dL 6.4-8.2 [facility] Sodium [Moles/Vol] 137 mmol/L 136-145 [facility] WBC (Bld) [#/Vol] 14.4 10*3/uL 4.4-11.0 [facility] Blood erythrocytes count (nu mber/volume)Ordered By: Keny Guevara on 03-27-2023 RBC (Bld) [#/Vol] 6.03 10*6/uL 4.6-6.2 [facility] Blood hemoglobin measurement (mass/volume)Ordered By: Keny Guevara on 03-27-2023 Hemoglobin (Bld) [Mass/Vol] 17.9 g/dL 13.0-16.5 [facility] Blood lymphocytes/100 leukoc ytesOrdered By: Keny Guevara on 03-27-2023 Lymphocytes/100 WBC (Bld) 11.9 % 19-41 [facility] Blood monocytes/100 leukocyt esOrdered By: Keny Guevara on 03-27-2023 Monocytes/100 WBC (Bld) 8.6 % 0-10 [facility] Blood platelet mean volumeOr dered By: Keny Guevara on 03-27-2023 Platelet mean volume (Bld) [Entitic vol] 10.5 fL 6.2-12.0 [facility] Determination of erythrocyte mean corpuscular volume (MCV)Ordered By: Keny Guevara on 03-27-2023 MCV (RBC) [Entitic vol] 89.6 fL 80-94 [facility] Erythrocyte sedimentation ra teOrdered By: Keny Guevara on 03-27-2023 ESR (Bld) [Velocity] 9 mm/h 0-20 [facility] Hematocrit Auto (Bld) [Volum e fraction]Ordered By: Keny Guevara on 03-27-2023 Hematocrit (Bld) [Volume fraction] 54.0 % 40-54 [facility] Laboratory - Chemistry and C hemistry - challengeOrdered By: Keny Guevara on 03-27-2023 ALP [Catalytic activity/Vol] 91 U/L 45-117 [facility] ALT [Catalytic activity/Vol] 21 U/L 16-61 [facility] CO2 [Moles/Vol] 29.0 mmol/L 21.0-32.0 [facility] Globulin (S) [Mass/Vol] 3.6 g/dL 2.2-4.2 [facility] Urea nitrogen/Creatinine [Mass ratio] 19.0 mg/mg 10-20 [facility] Laboratory - Hematology and Cell countsOrdered By: Keny Guevara on 03-27-2023 Erythrocyte distribution width (RBC) [Entitic vol] 43.5 fL 35.1-43.9 [facility] Erythrocyte distribution width (RBC) [Ratio] 13.3 % 11.6-14.6 [facility] Immature granulocytes/100 WBC (Bld) 0.600 % 0.0-0.9 [facility] Comment on above: IG% - Immature Granu locytes (promyelocytes, myelocytes and metamyelocytes) > 1% indicates that a LEFT SHIFT is Present. MCH (RBC) [Entitic mass] 29.7 pg 27.0-32.0 [facility] Nucleated RBC/100 WBC (Bld) [Ratio] 0 % 0-5 [facility] MCHC Auto (RBC) [Mass/Vol]Or dered By: Keny Guevara on 03-27-2023 MCHC (RBC) [Mass/Vol] 33.1 g/dL 32-36 [facility] No Panel InformationOrdered By: Keny Guevara on 03-27-2023 Endomysial IgA Antibody Negative Negative [facility] Estimated GFR (MDRD) Amer 139 mL/min >60 [facility] Comment on above: GFR Calc Estimated GFR (MDRD) Non-Af Amer 115 mL/min >60 [facility] Comment on above: Non- GFR Calc Platelets bldOrdered By: Vitor Guevara on 03-27-2023 Platelets (Bld) [#/Vol] 253 10*3/uL 150-450 [facility] Serum IgA measurement (units /volume)Ordered By: Keny Guevara on 03-27-2023 IgA Qn (S) 211 mg/dL 90-386 [facility] Comment on above: Performed at: [place] [id number] Director: Carlos Eduardo Teague PhD, Phone: [phone] Serum or plasma C reactive p rotein measurement (mass/volume)Ordered By: Keny Guevara on 03-27-2023 CRP [Mass/Vol] 22.40 mg/L 0.0-3.0 [facility] Comment on above: C-Reactive Protein ( CRP) provides useful information for thediagnosis, therapy and monitoring of inflammatory processesand associated diseases. For the evaluation of Relative Riskfor Cardiovascular Disease, a High Sensitivity CRP (HSCRP)should be ordered. Serum or plasma albumin cristina urement (mass/volume)Ordered By: Keny Guevara on 03-27-2023 Albumin [Mass/Vol] 3.8 g/dL 3.2-5.0 [facility] Serum or plasma albumin/glob ulin mass ratioOrdered By: Keny Guevara on 03-27-2023 Albumin/Globulin [Mass ratio] 1.1 {ratio} 0.9-2.4 [facility] Serum or plasma calcium cristina urement (mass/volume)Ordered By: Keny Guevara on 03-27-2023 Calcium [Mass/Vol] 9.2 mg/dL 8.5-10.1 [facility] Serum or plasma creatinine m easurement (mass/volume)Ordered By: Keny Guevara on 03-27-2023 Creatinine [Mass/Vol] 0.79 mg/dL 0.70-1.30 [facility] Comment on above: The validity of the calculated GFR & GFRAA in patients over 70 years has not been determined. Clinical correlation is essential. Serum or plasma urea nitroge n measurement (mass/volume)Ordered By: Keny Guevara on 03-27-2023 Urea nitrogen [Mass/Vol] 15 mg/dL 7-18 [facility] Serum tissue transglutaminas e IgA antibody assay (units/volume)Ordered By: Keny Guevara on 03-27-2023 tTG IgA Qn (S) <2 U/mL 0-3 [facility] Comment on above: Negative 0 - 3 Weak Positive 4 - 10 Positive >10 Tissue Transglutaminase (tTG) has been identified as the endomysial antigen. Studies have demonstr- ated that endomysial IgA antibodies have over 99% specificity for gluten sensitive enteropathy. Thin prep Papanicolaou smear with manual screeningOrdered By: Keny Guevara on 03-27-2023 Thin prep Papanicolaou smear with manual screening 13 U/L 15-37 [facility] Thin prep Papanicolaou smear with manual screening 7 5-15 [facility] Absolute lymphocyte countOrd ered By: Keny Guevara on 11-27-2022 Lymphocytes Auto (Unsp spec) [#/Vol] 1.18 10*3/uL 0.83-4.51 [facility] Basophil percentageOrdered B y: Keny Guevara on 11-27-2022 Basophils/100 WBC (Bld) 0.3 % 0-1 [facility] Bilirubin [Mass/Vol] 0.40 mg/dL 0.20-1.00 [facility] Comment on above: For patients on eltr ombopag therapy, use of Dimension [place] TBIL is not recommended. Chloride [Moles/Vol] 110 mmol/L 98-107 [facility] Eosinophils/100 WBC (Bld) 1.6 % 0-5 [facility] Glucose [Mass/Vol] 121 mg/dL 74-106 [facility] Comment on above: Fasting Glucose resu lt from 100 to 125 mg/dL suggests IMPAIRED HOMEOSTASIS per A.D.A. criteria. Neutrophils (Bld) [#/Vol] 7.6 10*3/uL 2.0-7.7 [facility] Neutrophils/100 WBC (Bld) 78.0 % 47-70 [facility] Potassium [Moles/Vol] 4.1 mmol/L 3.5-5.1 [facility] Protein [Mass/Vol] 7.1 g/dL 6.4-8.2 [facility] Sodium [Moles/Vol] 141 mmol/L 136-145 [facility] WBC (Bld) [#/Vol] 9.8 10*3/uL 4.4-11.0 [facility] Blood erythrocytes count (nu mber/volume)Ordered By: Keny Guevara on 11-27-2022 RBC (Bld) [#/Vol] 5.38 10*6/uL 4.6-6.2 [facility] Blood hemoglobin measurement (mass/volume)Ordered By: Keny Guevara on 11-27-2022 Hemoglobin (Bld) [Mass/Vol] 15.6 g/dL 13.0-16.5 [facility] Blood lymphocytes/100 leukoc ytesOrdered By: Keny Guevara on 01-12-2023 Lymphocytes/100 WBC (Bld) 12.1 % 19-41 [facility] Blood monocytes/100 leukocyt esOrdered By: Keny Guevara on 11-27-2022 Monocytes/100 WBC (Bld) 7.9 % 0-10 [facility] Blood platelet mean volumeOr dered By: Keny Guevara on 11-27-2022 Platelet mean volume (Bld) [Entitic vol] 11.1 fL 6.2-12.0 [facility] Determination of erythrocyte mean corpuscular volume (MCV)Ordered By: Keny Guevara on 11-27-2022 MCV (RBC) [Entitic vol] 86.6 fL 80-94 [facility] Erythrocyte sedimentation ra teOrdered By: Keny Guevara on 11-27-2022 ESR (Bld) [Velocity] 16 mm/h 0-20 [facility] Hematocrit Auto (Bld) [Volum e fraction]Ordered By: Keny Guevara on 11-27-2022 Hematocrit (Bld) [Volume fraction] 46.6 % 40-54 [facility] Laboratory - Chemistry and C hemistry - challengeOrdered By: Keny Guevara on 11-27-2022 ALP [Catalytic activity/Vol] 93 U/L 45-117 [facility] ALT [Catalytic activity/Vol] 16 U/L 16-61 [facility] CO2 [Moles/Vol] 30.0 mmol/L 21.0-32.0 [facility] Globulin (S) [Mass/Vol] 3.5 g/dL 2.2-4.2 [facility] Urea nitrogen/Creatinine [Mass ratio] 14.2 mg/mg 10-20 [facility] Laboratory - Hematology and Cell countsOrdered By: Keny Guevara on 11-27-2022 Erythrocyte distribution width (RBC) [Entitic vol] 41.1 fL 35.1-43.9 [facility] Erythrocyte distribution width (RBC) [Ratio] 13.1 % 11.6-14.6 [facility] Immature granulocytes/100 WBC (Bld) 0.100 % 0.0-0.9 [facility] Comment on above: IG% - Immature Granu locytes (promyelocytes, myelocytes and metamyelocytes) > 1% indicates that a LEFT SHIFT is Present. MCH (RBC) [Entitic mass] 29.0 pg 27.0-32.0 [facility] Nucleated RBC/100 WBC (Bld) [Ratio] 0 % 0-5 [facility] MCHC Auto (RBC) [Mass/Vol]Or dered By: Keny Guevara on 11-27-2022 MCHC (RBC) [Mass/Vol] 33.5 g/dL 32-36 [facility] No Panel InformationOrdered By: Keny Guevara on 11-27-2022 Endomysial IgA Antibody Negative Negative [facility] Estimated GFR (MDRD) Amer 159 mL/min >60 [facility] Comment on above: GFR Calc Estimated GFR (MDRD) Non-Af Amer 131 mL/min >60 [facility] Comment on above: Non- GFR Calc Miscellaneous Test See comment [facility] Comment on above: TEST RESULT LIMITSTh iopurine Methyltransferase TPMT Activity 27.6 Units/mL RBC Reference Range: Normal: 15.1 - 26.4 Heterozygous for low TPMT variant: 6.3 - 15.0 Homozygous for low TPMT variant: <6.3Interpretation: The above results can be interpreted as Normal for red blood cell Thiopurine Methyltransferase activity. For patients having an intrinsic low level of TPMT, recent RBC transfusion can variably increase their assayed enzymatic activity depending on the amount and circulating half-life of the transfused red blood cells. This test was developed and its performance characteristics determined by [employer]. It has not been cleared or approved by the Food and Drug Administration. This case has been reviewed, approved, interpreted and electronically signed by Jose Aguilar, PhD, [facility].Methodology Enzymatic Endpoint/Liquid Chromatography - Tandem Mass Spectrometry (LC-MS/MS) ____ TESTING PERFORMED AT [facility]. ORIGINAL REPORT ON FILE IN LAB CONTAINS ADDITIONAL TEST SITE INFORMATION. Platelets bldOrdered By: Vitor Guevara on 11-27-2022 Platelets (Bld) [#/Vol] 204 10*3/uL 150-450 [facility] Serum IgA measurement (units /volume)Ordered By: Keny Guevara on 11-27-2022 IgA Qn (S) 203 mg/dL 90-386 [facility] Comment on above: Performed at: [address] [id number] Director: Carlos Eduardo Teague PhD, Phone: [phone] Serum or plasma C reactive p rotein measurement (mass/volume)Ordered By: Keny Guevara on 11-27-2022 CRP [Mass/Vol] 4.83 mg/L 0.0-3.0 [facility] Comment on above: C-Reactive Protein ( CRP) provides useful information for thediagnosis, therapy and monitoring of inflammatory processesand associated diseases. For the evaluation of Relative Riskfor Cardiovascular Disease, a High Sensitivity CRP (HSCRP)should be ordered. Serum or plasma albumin cristina urement (mass/volume)Ordered By: Keny Guevara on 11-27-2022 Albumin [Mass/Vol] 3.6 g/dL 3.2-5.0 [facility] Serum or plasma albumin/glob ulin mass ratioOrdered By: Keny Guevara on 11-27-2022 Albumin/Globulin [Mass ratio] 1.0 {ratio} 0.9-2.4 [facility] Serum or plasma calcium cristina urement (mass/volume)Ordered By: Keny Guevara on 11-27-2022 Calcium [Mass/Vol] 8.7 mg/dL 8.5-10.1 [facility] Serum or plasma creatinine m easurement (mass/volume)Ordered By: Keny Guevara on 11-27-2022 Creatinine [Mass/Vol] 0.70 mg/dL 0.70-1.30 [facility] Comment on above: The validity of the calculated GFR & GFRAA in patients over 70 years has not been determined. Clinical correlation is essential. Serum or plasma urea nitroge n measurement (mass/volume)Ordered By: Keny Guevara on 11-27-2022 Urea nitrogen [Mass/Vol] 10 mg/dL 7-18 [facility] Serum tissue transglutaminas e IgA antibody assay (units/volume)Ordered By: Kenymeli Guevara on 11-27-2022 tTG IgA Qn (S) <2 U/mL 0-3 [facility] Comment on above: Negative 0 - 3 Weak Positive 4 - 10 Positive >10 Tissue Transglutaminase (tTG) has been identified as the endomysial antigen. Studies have demonstr- ated that endomysial IgA antibodies have over 99% specificity for gluten sensitive enteropathy. Thin prep Papanicolaou smear with manual screeningOrdered By: Kenyjairon Guevara on 11-27-2022 Thin prep Papanicolaou smear with manual screening 10 U/L 15-37 [facility] Thin prep Papanicolaou smear with manual screening 1 5-15 [facility] Absolute lymphocyte countOrd ered By: Kenyjairon Guevara on 11-13-2022 Lymphocytes Auto (Unsp spec) [#/Vol] 3.14 10*3/uL 0.83-4.51 [facility] Basophil percentageOrdered B y: Kenyjairon Guevara on 11-13-2022 Basophils/100 WBC (Bld) 0.3 % 0-1 [facility] Bilirubin [Mass/Vol] 0.20 mg/dL 0.20-1.00 [facility] Comment on above: For patients on eltr ombopag therapy, use of Dimension [place] TBIL is not recommended. Chloride [Moles/Vol] 105 mmol/L 98-107 [facility] Eosinophils/100 WBC (Bld) 1.8 % 0-5 [facility] Glucose [Mass/Vol] 86 mg/dL 74-106 [facility] Neutrophils (Bld) [#/Vol] 8.4 10*3/uL 2.0-7.7 [facility] Neutrophils/100 WBC (Bld) 64.5 % 47-70 [facility] Potassium [Moles/Vol] 4.2 mmol/L 3.5-5.1 [facility] Protein [Mass/Vol] 6.7 g/dL 6.4-8.2 [facility] Sodium [Moles/Vol] 138 mmol/L 136-145 [facility] WBC (Bld) [#/Vol] 13.0 10*3/uL 4.4-11.0 [facility] Blood erythrocytes count (nu mber/volume)Ordered By: Keny Guevara on 11-13-2022 RBC (Bld) [#/Vol] 5.24 10*6/uL 4.6-6.2 [facility] Blood hemoglobin measurement (mass/volume)Ordered By: Keny Guevara on 11-13-2022 Hemoglobin (Bld) [Mass/Vol] 15.3 g/dL 13.0-16.5 [facility] Blood lymphocytes/100 leukoc ytesOrdered By: Keny Guevara on 11-13-2022 Lymphocytes/100 WBC (Bld) 24.2 % 19-41 [facility] [facility] Blood monocytes/100 leukocyt esOrdered By: Keny Guevara on 11-13-2022 Monocytes/100 WBC (Bld) 8.7 % 0-10 [facility] Blood platelet mean volumeOr dered By: Keny Guevara on 11-13-2022 Platelet mean volume (Bld) [Entitic vol] 10.4 fL 6.2-12.0 [facility] Determination of erythrocyte mean corpuscular volume (MCV)Ordered By: Keny Guevara on 11-13-2022 MCV (RBC) [Entitic vol] 87.8 fL 80-94 [facility] Hematocrit Auto (Bld) [Volum e fraction]Ordered By: Keny Guevara on 11-13-2022 Hematocrit (Bld) [Volume fraction] 46.0 % 40-54 [facility] Laboratory - Chemistry and C hemistry - challengeOrdered By: Keny Guevara on 11-13-2022 ALP [Catalytic activity/Vol] 65 U/L 45-117 [facility] ALT [Catalytic activity/Vol] 17 U/L 16-61 [facility] CO2 [Moles/Vol] 33.0 mmol/L 21.0-32.0 [facility] Globulin (S) [Mass/Vol] 3.4 g/dL 2.2-4.2 [facility] Urea nitrogen/Creatinine [Mass ratio] 30.5 mg/mg 10-20 [facility] Laboratory - Hematology and Cell countsOrdered By: Keny Guevara on 11-13-2022 Erythrocyte distribution width (RBC) [Entitic vol] 42.0 fL 35.1-43.9 [facility] Erythrocyte distribution width (RBC) [Ratio] 13.1 % 11.6-14.6 [facility] Immature granulocytes/100 WBC (Bld) 0.500 % 0.0-0.9 [facility] Comment on above: IG% - Immature Granu locytes (promyelocytes, myelocytes and metamyelocytes) > 1% indicates that a LEFT SHIFT is Present. MCH (RBC) [Entitic mass] 29.2 pg 27.0-32.0 [facility] Nucleated RBC/100 WBC (Bld) [Ratio] 0 % 0-5 [facility] MCHC Auto (RBC) [Mass/Vol]Or dered By: Keny Guevara on 11-13-2022 MCHC (RBC) [Mass/Vol] 33.3 g/dL 32-36 [facility] No Panel InformationOrdered By: Kney Guevara on 11-13-2022 Estimated GFR (MDRD) Amer 182 mL/min >60 [facility] Comment on above: GFR Calc Estimated GFR (MDRD) Non-Af Amer 151 mL/min >60 [facility] Comment on above: Non- GFR Calc Platelets bldOrdered By: Vitor Guevara on 11-13-2022 Platelets (Bld) [#/Vol] 224 10*3/uL 150-450 [facility] Serum or plasma albumin cristina urement (mass/volume)Ordered By: Keny Guevara on 11-13-2022 Albumin [Mass/Vol] 3.3 g/dL 3.2-5.0 [facility] Serum or plasma albumin/glob ulin mass ratioOrdered By: Keny Guevara on 11-13-2022 Albumin/Globulin [Mass ratio] 1.0 {ratio} 0.9-2.4 [facility] Serum or plasma calcium cristina urement (mass/volume)Ordered By: Keny Guevara on 11-13-2022 Calcium [Mass/Vol] 8.6 mg/dL 8.5-10.1 [facility] Serum or plasma creatinine m easurement (mass/volume)Ordered By: Keny Guevara on 11-13-2022 Creatinine [Mass/Vol] 0.62 mg/dL 0.70-1.30 [facility] Comment on above: The validity of the calculated GFR & GFRAA in patients over 70 years has not been determined. Clinical correlation is essential. Serum or plasma urea nitroge n measurement (mass/volume)Ordered By: Keny Guevara on 11-13-2022 Urea nitrogen [Mass/Vol] 19 mg/dL 7-18 [facility] Thin prep Papanicolaou smear with manual screeningOrdered By: Keny Guevara on 11-13-2022 Thin prep Papanicolaou smear with manual screening 8 U/L 15-37 [facility] Thin prep Papanicolaou smear with manual screening 0 5-15 [facility] CNPNon 11-07[facility]2022 [facility] JOSE MCNAMARA ([id number]) 1980 Date Time Provider Department 11/07/[address] [facility] During your visit today, we recorded the following information about you: Reinaldo Pereira PA-C 11/07/2022 7:20 AM Signed Please call and let patient know he did test positive for influenza A. Continue [id number]-[id number] medications as needed for cough and congestion. If not improving over the next 3 to 5 days follow-up with PCP. Callie Coe LPN 11/07/2022 7:57 AM Signed Phone call placed patient advised (see prior provider encounter) Patient verbalized understanding, agreed with plan of care. Callie Coe LPN Allergies As of Date: 11/07/2022 Noted Allergy Reaction PENICILLINS 05/29/2015 5 - Intolerance Date Reviewed: 11/06/2022 Reviewed by: Edward Powell APRN.EMAIL CAMPAIGN SPECIALIST - Fully Assessed Reason for Visit: Results [95] Prescriptions as of 11/07/2022 - ondansetron orally disintegrating (ZOFRAN ODT) 4 mg disintegrating tablet Take 1 tablet by mouth every 6 hours as needed for nausea/vomiting. - carbamide peroxide (DEBROX) 6.5 % otic solution Use 5 Drops in both ears twice daily. - albuterol HFA (PROAIR HFA) 90 mcg/actuation inhaler Inhale 2 Puffs as instructed every 4 hours as needed. - fluticasone (FLONASE) 50 mcg/actuation nasal spray Use 2 Sprays in each nostril once daily. Rinse mouth after use. - guaiFENesin (MUCINEX) 600 mg 12 hr tablet Take 2 tablets by mouth twice daily. - famotidine (PEPCID) 20 mg tablet Take 1 tablet by mouth once daily. - ferrous sulfate 325 mg (65 mg iron) tablet Take 325 mg by mouth once daily. - MAVYRET 100-40 mg tablet Take 1 tablet by mouth once daily. - OLANZapine (ZYPREXA) 2.5 mg tablet Take 1 tablet by mouth once daily. - ondansetron (ZOFRAN) 4 mg tablet Take 1 tablet by mouth as needed. - buprenorphine SL (SUBUTEX) 2 mg subl Dissolve 2 mg under the tongue three times daily. - OXcarbazepine (TRILEPTAL) 600 mg tablet Take 1.5 tablets by mouth once daily. 900 MG daily. - fluvoxaMINE (LUVOX) 100 mg tablet Take 1 tablet by mouth daily at bedtime. - propranolol (INDERAL) 20 mg tablet Take 1 tablet by mouth twice daily. - acetaminophen (TYLENOL EXTRA STRENGTH) 500 mg tablet Take 1 tablet by mouth every 8 hours as needed for Pain. - BUPRENORPHINE HCL/NALOXONE HCL (SUBOXONE SUBLINGUAL) Dissolve under the tongue. Problem List As Of Date 11/07/2022 Noted Resolved History of head injury [Z87.828] 06/10/2018 History of bleeding peptic ulcer [Z87.11] Encounter Status:Closed by CALLIE COE LPN on 11/07/22 [facility] Influenza virus A and B RNA and SARS-CoV-2 (COVID-19) N gene panel MEME+probe (Resp)on 11-07-2022 FLUAV RNA MEME+probe Ql (Unsp spec) Positive Abnormal Negative for Influenza A by RT-PCR [facility] FLUBV RNA MEME+probe Ql (Unsp spec) Negative Negative for Influenza B by RT-PCR [facility] SARS-CoV-2 (COVID-19) RNA MEME+probe Ql (Resp) SARS-CoV-2 (Agent of COVID-19) Not Detected by RT-PCR or equivalent method. Not Detected [facility] CNOVon 11-06-2022 CNOV Office Visit ([facility]WSTR ) ----- JOSE MCNAMARA ([id number]) 1980 M Date Time Provider Department 11/06/22 12:00 PM [address]ELL [facility] During your visit today, we recorded the following information about you: Temperature Pulse Respiration Blood pressure 97.9 degrees 84/minute 18/minute 102/64 Weight 58.8 kg Edward Powell APRN.EMAIL CAMPAIGN SPECIALIST 11/06/2022 11:53 AM Signed How to Manage Common Symptoms Associated with COVID for Adults Fever- Fever is a temperature over 100.4 F and can occur when the body is fighting an infection. To help treat a fever: Drink plenty of fluids and stay well hydrated. Eat small amounts of easy to digest food. Rest. Your body needs rest to recover, but getting up and moving around the house frequently is a good idea. You should try to continue doing your normal daily activities (bathing, toileting, grooming, cooking), though you will probably feel tired, and need to rest often. Avoid any heavy activity or exercise, as this will increase your body temperature. Dress in light clothing and stay covered in a light sheet. Keep the room temperature cool. Take a slightly warm (not cold or cool) bath, or apply damp washcloths to the forehead and wrists. Cough- Cough is a common symptom associated with COVID and can be bothersome. To help treat a cough: Stay well hydrated. Try warm water or tea with lemon and/or honey to help soothe the cough. Use a humidifier to add moisture to the air. Try a product with menthol, like a cough drop or a rub for your chest such as Vicks, which can help reduce cough. Try cough drops. Avoid smoking and other strong odors or perfumes. Try breathing exercises to keep your lungs open and clear. Take a big deep breath through your nose and hold for 5 seconds before slowly releasing. Repeat frequently, while you are awake. Congestion- Runny nose or nasal congestion can occur with COVID. Treatment can help relieve symptoms: Try OTC nasal saline spray, or nasal saline rinse to relieve mucus congestion. Nasal strips can help keep nasal passages open, to increase airflow. Elevating your head with an extra pillow in bed can help reduce congestion. Using a humidifier can increase moisture in the air, and make breathing easier. Sore Throat- Another common symptom with COVID, can be managed at home by: Stay well hydrated. Gargle with salt water - mix ? teaspoon salt with 1 cup of warm water and gargle. This helps to loosen mucus in the back of the throat and may reduce discomfort. Try ice chips, popsicles or lozenges to soothe the throat. Nausea/Vomiting/Diarrhea- These are common symptoms, and staying hydrated is most important. If you are nauseous or vomiting, start with small sips of water every 10-15 minutes and increase as tolerated. You can try sucking an ice cube too. If tolerating, you can try pedialyte or Gatorade, or flat sprite or sheryl-ryan. Start slowly and increase as you are able to. Instead of meals, try smaller, more frequent snacks. Try eating bland foods like crackers, toast, rice, and applesauce. Avoid spicy, greasy or fried foods and dairy containing foods. Even if you aren't feeling hungry due to lack of smell or taste, it is important to try to take in some food when you are able. After drinking and eating, rest in an upright position for up to two hours as needed to help decrease nauseous feelings. Try closing your eyes, avoid moving and watching TV. Avoid strong odors that can make you feel more nauseated. When to seek emergency medical attention Look for emergency warning signs for COVID-19. If having any of these symptoms, seek emergency medical care immediately: Trouble breathing Persistent pain or pressure in the chest New confusion Inability to wake or stay awake Bluish lips or face *This list is not all possible symptoms. Please call your medical provider for any other symptoms that are severe or concerning to you. Edward Powell APRN.EMAIL CAMPAIGN SPECIALIST 11/06/2022 12:09 PM Signed Subjective HPI Nontoxic-appearing male presents to urgent care with chief complaint of fever and cough. Duration of symptoms 2 days. Associated symptoms with today's chief complaint are on and off headache, muscle aches, fatigue, nonproductive cough, and sore throat. Patient stated symptoms started abruptly. Patient states they have used offy-psc-oydexdv medication with some success. Patient states they were in contact with individuals who were diagnosed with COVID-19. Patient denies any pain at this time. Patient denies any visual changes, visual disturbance, shortness of breath, rash, exercise intolerance, pleuritic pain, productive cough, abdominal pain, nausea, vomiting, chest pain, or change in bowel or bladder habits. Denies history of COVID-19 in past. Is not vaccinated. Past medical history prescription medication use all (more content not included)... Normal [facility] No Panel InformationOrdered By: Keny Friend on 09-26-2022 Miscellaneous Test See comment [facility] Comment on above: TEST RESULT LIMITSIB D Expanded Panel Fernando 12 units 0-50 Negative <45 Equivocal 45 - 50 Positive >50 ACCA 48 units 0-90 Negative <80 Equivocal 80 - 90 Positive >90 ALCA 81 units 0-60 Negative <55 Equivocal 55 - 60 Positive >60 AMCA 87 units 0-100 Negative < 90 Equivocal 90 - 100 Positive >100 This test was developed and its performance characteristics determined by [email or web address]. It has not been cleared or approved by the Food and Drug Administration. The FDA has determined that such clearance or approval is not necessary.Atypical pANCA Negative NegativeComments Abnormal Suggestive of Crohn's Disease. Pattern is not conclusive for disease behavior risk stratification. TESTING PERFORMED AT [facility]. ORIGINAL REPORT ON FILE IN LAB CONTAINS ADDITIONAL TEST SITE INFORMATION. No Panel Informationon 08-05 Stool Calprotectin <16 ug/g 0-120 [facility] Work Phone: Comment on above: Concentration Interp retation Follow-Up<16 - 50 ug/g Normal None>50 -120 ug/g Borderline Re-evaluate in 4-6 weeks >120 ug/g Abnormal Repeat as clinically indicatedPerformed at: [facility] [id number] Director: Debby Cruz MD, Phone: [phone] Absolute lymphocyte counton 07-15-2022 Lymphocytes Auto (Unsp spec) [#/Vol] 1.68 10*3/uL 0.83-4.51 [facility] Work Phone: Albumin Elph [Mass/Vol]on Albumin [Mass/Vol] Not Reportable [facility] Work Phone: Basophil percentageon 2021 Basophil percentage < 0.2 AI 0.0-0.9 [facility] Work Phone: Basophil percentage 1.7 AI 0.0-0.9 [facility] Work Phone: Basophils/100 WBC (Bld) 0.3 % 0-1 [facility] Work Phone: Bilirubin [Mass/Vol] 0.20 mg/dL 0.20-1.00 [facility] Work Phone: Comment on above: For patients on eltr ombopag therapy, use of Dimension [place] TBIL is not recommended. Chloride [Moles/Vol] 105 mmol/L 98-107 [facility] Work Phone: Eosinophils/100 WBC (Bld) 1.7 % 0-5 [facility] Work Phone: Glucose [Mass/Vol] 88 mg/dL 74-106 [facility] Work Phone: Neutrophils (Bld) [#/Vol] 14.2 10*3/uL 2.0-7.7 [facility] Work Phone: Neutrophils/100 WBC (Bld) 81.8 % 47-70 [facility] Work Phone: Potassium [Moles/Vol] 3.9 mmol/L 3.5-5.1 [facility] Work Phone: Protein [Mass/Vol] 7.4 g/dL 6.4-8.2 [facility] Work Phone: Sodium [Moles/Vol] 140 mmol/L 136-145 [facility] Work Phone: WBC (Bld) [#/Vol] 17.4 10*3/uL 4.4-11.0 [facility] Work Phone: Blood erythrocytes count (nu mber/volume)on 07-15-2022 RBC (Bld) [#/Vol] 5.53 10*6/uL 4.6-6.2 [facility] Work Phone: Blood hemoglobin measurement (mass/volume)on 07-15-2022 Hemoglobin (Bld) [Mass/Vol] 15.3 g/dL 13.0-16.5 [facility] Work Phone: [phone] Blood lymphocytes/100 leukoc yteson 07-15-2022 Lymphocytes/100 WBC (Bld) 9.6 % 19-41 [facility] Work Phone: [phone] Blood monocytes/100 leukocyt eson 07-15-2022 Monocytes/100 WBC (Bld) 6.4 % 0-10 [facility] Work Phone: [phone] Blood platelet mean volumeon 07-15-2022 Platelet mean volume (Bld) [Entitic vol] 11.6 fL 6.2-12.0 [facility] Work Phone: [phone] Determination of erythrocyte mean corpuscular volume (MCV)on 07-15-2022 MCV (RBC) [Entitic vol] 84.8 fL 80-94 [facility] Work Phone: [phone] Erythrocyte sedimentation ra shantanu 07-15-2022 ESR (Bld) [Velocity] 11 mm/h 0-20 [facility] Work Phone: Hematocrit Auto (Bld) [Volum e fraction]on 07-15-2022 Hematocrit (Bld) [Volume fraction] 46.9 % 40-54 [facility] Work Phone: Interpretation of serum or p lasma protein pattern by immunofixation (narrative resulton 07-15-2022 Protein Fractions Immunofixation Hood [Interp] Not Reportable [facility] Work Phone: Laboratory - Chemistry and C hemistry - challengeon 07-15-2022 ALP [Catalytic activity/Vol] 102 U/L 45-117 [facility] Work Phone: [phone] ALT [Catalytic activity/Vol] 18 U/L 16-61 [facility] Work Phone: [phone] CO2 [Moles/Vol] 30.0 mmol/L 21.0-32.0 [facility] Work Phone: Globulin (S) [Mass/Vol] 3.7 g/dL 2.2-4.2 [facility] Work Phone: Urea nitrogen/Creatinine [Mass ratio] 15.7 mg/mg 10-20 [facility] Work Phone: [phone] Laboratory - Hematology and Cell countson 07-15-2022 Erythrocyte distribution width (RBC) [Entitic vol] 39.9 fL 35.1-43.9 [facility] Work Phone: Erythrocyte distribution width (RBC) [Ratio] 12.9 % 11.6-14.6 [facility] Work Phone: [phone] Immature granulocytes/100 WBC (Bld) 0.200 % 0.0-0.9 [facility] Work Phone: Comment on above: IG% - Immature Granu locytes (promyelocytes, myelocytes and metamyelocytes) > 1% indicates that a LEFT SHIFT is Present. MCH (RBC) [Entitic mass] 27.7 pg 27.0-32.0 [facility] Work Phone: Nucleated RBC/100 WBC (Bld) [Ratio] 0 % 0-5 [facility] Work Phone: MCHC Auto (RBC) [Mass/Vol]on 07-15-2022 MCHC (RBC) [Mass/Vol] 32.6 g/dL 32-36 [facility] Work Phone: No Panel Informationon 07-15 Centromere B Antibody <0.2 AI 0.0-0.9 [facility] Work Phone: Endomysial IgA Antibody Negative Negative [facility] Work Phone: Estimated GFR (MDRD) Amer 121 mL/min >60 [facility] Work Phone: Comment on above: GFR Calc Estimated GFR (MDRD) Non-Af Amer 100 mL/min >60 [facility] Work Phone: Comment on above: Non- GFR Calc Hepatitis C Antibody Preliminary Reactive Nonre active [facility] Work Phone: Comment on above: Non Reactive: < 0.8 Equivocal: >/= 0.8 to < 1.0 Reactive: >/= 1.0The CDC recommends that a reactive/equivocal HCV antibody result be followed up by the HCV Nucleic Acid Amplificationtest (620232) Hepatitis C Genotype See comment [facility] Work Phone: Comment on above: TEST RESULT LIMITSHC V Genotyping Non ReflexHepatitis C Genotype Test not performed. We are unable to determine the genotype and/or phenotype of this sample due to insufficient viral copy number. Samples with low viral loads will often fail PCR amplification.Please note: This test was developed and its performance characteristics determined by [email or web address]. It has not been cleared or approved by the U.S. Food and Drug Administration. The FDA has determined that such clearance or approval is notnecessary. This test is used for clinical purposes. It should not be regarded as investigational or for research. ___ TESTING PERFORMED AT [facility]. ORIGINAL REPORT ON FILE IN LAB CONTAINS ADDITIONAL TEST SITE INFORMATION. Immunoglobulin E See comment [facility] Work Phone: Comment on above: TEST RESULT LIMITSIm munoglobulin E, Total <2 Low IU/mL 6-495 TESTING PERFORMED AT [facility]. ORIGINAL REPORT ON FILE IN LAB CONTAINS ADDITIONAL TEST SITE INFORMATION. SIDE FRAMER Antibody 0.9 AI 0.0-0.9 [facility] Work Phone: Platelets bldon 07-15-2022 Platelets (Bld) [#/Vol] 221 10*3/uL 150-450 [facility] Work Phone: Serum DNA double strand anti body assay (units/volume)on 07-15-2022 DNA double strand Ab Qn (S) 2 [IU]/mL 0-9 [facility] Work Phone: Comment on above: Negative <5 Equivoca l 5 - 9 Positive >9 Serum Cammie-1 antibody assay (u nits/volume)on 07-15-2022 Cammie-1 extractable nuclear Ab Qn (S) <0.2 AI 0.0-0.9 [facility] Work Phone: Serum Scl-70 extractable nuc lear antibody assay (units/volume)on 07-15-2022 SCL-70 extractable nuclear Ab Qn (S) <0.2 AI 0.0-0.9 [facility] Work Phone: Serum Park extractable nucl ear antibody detectionon 07-15-2022 Park extractable nuclear Ab Ql (S) <0.2 AI 0.0-0.9 [facility] Work Phone: Serum [id number] measu rement by electrophoresison 07-15-2022 Alpha 1 globulin Elph [Mass/Vol] Not Reportable [facility] Work Phone: Serum classic neutrophil cyt oplasmic antibody assay (units/volume)on 07-15-2022 Neutrophil cytoplasmic Ab.classic Qn (S) See comment [facility] Work Phone: Comment on above: TEST RESULT LIMITSAn tineutrophil Cytoplasmic AbCytoplasmic (C-ANCA) <1:20 titer Neg:<1:20Perinuclear (P-ANCA) <1:20 titer Neg:<1:20The presence of positive fluorescence exhibiting P-ANCA or C-ANCApatterns alone is not specific for the diagnosis of Cihchi's Granulomatosis (WG) or microscopic polyangiitis. Decisions about treatment should not be based solely on ANCA IFA results. The [employer] ANCA [employer] Consensus recommends follow up testing of positive sera with both MS-3 and MPO-ANCA enzyme immunoassays. As many as 5% serum samples are positive only by EIA.Ref. AM J Clin Pathol 1999;111:507-513.Atypical pANCA <1:20 titer Neg:<1:20The atypical pANCA pattern has been observed in a significant percentage of patients with ulcerative colitis, primary sclerosing cholangitis and autoimmune hepatitis. ____ [facility] ORIGINAL REPORT ON FILE IN LAB CONTAINS ADDITIONAL TEST SITE INFORMATION. Serum or plasma C reactive p rotein measurement (mass/volume)on 07-15-2022 CRP [Mass/Vol] 12.20 mg/L 0.0-3.0 [facility] Work Phone: Comment on above: C-Reactive Protein ( CRP) provides useful information for thediagnosis, therapy and monitoring of inflammatory processesand associated diseases. For the evaluation of Relative Riskfor Cardiovascular Disease, a High Sensitivity CRP (HSCRP)should be ordered. Serum or plasma IgA measurem ent (mass/volume)on 07-15-2022 IgA [Mass/Vol] Not Reportable [facility] Work Phone: Serum or plasma IgG measurem ent (mass/volume)on 07-15-2022 IgG [Mass/Vol] Not Reportable [facility] Work Phone: Serum or plasma IgM measurem ent (mass/volume)on 07-15-2022 IgM [Mass/Vol] Not Reportable [facility] Work Phone: Serum or plasma albumin cristina urement (mass/volume)on 07-15-2022 Albumin [Mass/Vol] 3.7 g/dL 3.2-5.0 [facility] Work Phone: Serum or plasma albumin/glob ulin mass ratioon 07-15-2022 Albumin/Globulin [Mass ratio] 1.0 {ratio} 0.9-2.4 [facility] Work Phone: Serum or plasma beta globuli n measurement by electrophoresis (mass/volume)on 07-15-2022 Beta globulin Elph [Mass/Vol] Not Reportable [facility] Work Phone: Serum or plasma calcium cristina urement (mass/volume)on 07-15-2022 Calcium [Mass/Vol] 8.5 mg/dL 8.5-10.1 [facility] Work Phone: Serum or plasma creatinine m easurement (mass/volume)on 07-15-2022 Creatinine [Mass/Vol] 0.89 mg/dL 0.70-1.30 [facility] Work Phone: Comment on above: The validity of the calculated GFR & GFRAA in patients over 70 years has not been determined. Clinical correlation is essential. Serum or plasma gamma globul in measurement by electrophoresis (mass/volume)on 07-15-2022 Gamma globulin Elph [Mass/Vol] Not Reportable [facility] Work Phone: Serum or plasma hepatitis C virus RNA measurement by probe and target amplification mon 07-15-2022 HCV RNA MEME+probe Qn See comment [facility] Work Phone: Comment on above: TEST RESULT LIMITSHC V RT-PCR, Quant (Non-Graph)Hepatitis C Quantitation HCV Not Detected IU/mLTest Information: The quantitative range of this assay is 15 IU/mL to 100 million IU/mL. TESTING PERFORMED AT [facility]. ORIGINAL REPORT ON FILE IN LAB CONTAINS ADDITIONAL TEST SITE INFORMATION. Serum or plasma urea nitroge n measurement (mass/volume)on 07-15-2022 Urea nitrogen [Mass/Vol] 14 mg/dL 7-18 [facility] Work Phone: Serum perinuclear neutrophil cytoplasmic antibody titer by immunofluorescenceon 07-15-2022 Neutrophil cytoplasmic Ab.perinuclear IF (S) [Titer] Not Reportable [facility] Work Phone: Serum tissue transglutaminas e IgA antibody assay (units/volume)on 07-15-2022 tTG IgA Qn (S) 5 U/mL 0-3 [facility] Work Phone: Comment on above: Negative 0 - 3 Weak Positive 4 - 10 Positive >10 Tissue Transglutaminase (tTG) has been identified as the endomysial antigen. Studies have demonstr- ated that endomysial IgA antibodies have over 99% specificity for gluten sensitive enteropathy. Thin prep Papanicolaou smear with manual screeningon 07-15-2022 Thin prep Papanicolaou smear with manual screening 15 U/L 15-37 [facility] Work Phone: Thin prep Papanicolaou smear with manual screening 5 5-15 [facility] Work Phone: Thin prep Papanicolaou smear with manual screening 232 U/L 87-241 [facility] Work Phone: Thin prep Papanicolaou smear with manual screening Not Reportable [facility] Work Phone: Total protein bloodon 2021 Protein [Mass/Vol] See comment [facility] Work Phone: Comment on above: TEST RESULT LIMITSIF E and PE, SerumImmunoglobulin G, Qn, Serum 880 mg/dL [id number] A, Qn, Serum 204 mg/dL 90-386Immunoglobulin M, Qn, Serum 202 High mg/dL 20-172Protein, Total 7.0 g/dL 6.0-8.5Albumin 3.7 g/dL 2.9-4.7Hzrbg-5-Agbpaarn 0.4 g/dL 0.0-0.8Eiyud-0-Jadtgdmq 0.8 g/dL 0.4-1.0Beta Globulin 0.9 g/dL 0.7-1.3Gamma Globulin 1.2 g/dL 0.4-1.8M-Martin Not Observed g/dL Not ObservedGlobulin, Total 3.3 g/dL 2.2-3.9A/G Ratio 1.2 0.7-1.7Immunofixation Result, Serum No monoclonality detected.Please note: Protein electrophoresis scan will follow via computer, mail, or color checker roving or yarn delivery. Absolute lymphocyte counton 05-22-2022 Lymphocytes Auto (Unsp spec) [#/Vol] 0.96 10*3/uL 0.83-4.51 [facility] Work Phone: Basophil percentageon 2021 Basophil percentage 0-5 SEEN /hpf 0-5 [facility] Work Phone: Basophils/100 WBC (Bld) 0.6 % 0-1 [facility] Work Phone: Eosinophils/100 WBC (Bld) 1.5 % 0-5 [facility] Work Phone: Neutrophils (Bld) [#/Vol] 8.6 10*3/uL 2.0-7.7 [facility] Work Phone: Neutrophils/100 WBC (Bld) 85.0 % 47-70 [facility] Work Phone: WBC (Bld) [#/Vol] 10.2 10*3/uL 4.4-11.0 [facility] Work Phone: Bilirubin Test strip Ql (U)o n 05-22-2022 Bilirubin Ql (U) Negative Negative [facility] Work Phone: Blood erythrocytes count (nu mber/volume)on 05-22-2022 RBC (Bld) [#/Vol] 5.35 10*6/uL 4.6-6.2 [facility] Work Phone: [phone] Blood hemoglobin measurement (mass/volume)on 05-22-2022 Hemoglobin (Bld) [Mass/Vol] 15.0 g/dL 13.0-16.5 [facility] Work Phone: Blood lymphocytes/100 leukoc yteson 05-22-2022 Lymphocytes/100 WBC (Bld) 9.5 % 19-41 [facility] Work Phone: Blood monocytes/100 leukocyt eson 05-22-2022 Monocytes/100 WBC (Bld) 3.3 % 0-10 [facility] Work Phone: Blood platelet mean volumeon 05-22-2022 Platelet mean volume (Bld) [Entitic vol] 11.5 fL 6.2-12.0 [facility] Work Phone: Determination of erythrocyte mean corpuscular volume (MCV)on 05-22-2022 MCV (RBC) [Entitic vol] 84.3 fL 80-94 [facility] Work Phone: Hematocrit Auto (Bld) [Volum e fraction]on 05-22-2022 Hematocrit (Bld) [Volume fraction] 45.1 % 40-54 [facility] Work Phone: Ketones Test strip Ql (U)on 05-22-2022 Ketones Ql (U) 150 mg/dl Negative [facility] Work Phone: Comment on above: CRITICAL VALUE *HCRI TICAL VALUE VERIFIED. CALLED TO STEFANO AGUILAR (ER)05/22/22 1133 [address] Win.RESULTS READ BACK BY SAME. Laboratory - Hematology and Cell countson 05-22-2022 Erythrocyte distribution width (RBC) [Entitic vol] 36.8 fL 35.1-43.9 [facility] Work Phone: Erythrocyte distribution width (RBC) [Ratio] 12.1 % 11.6-14.6 [facility] Work Phone: Immature granulocytes/100 WBC (Bld) 0.100 % 0.0-0.9 [facility] Work Phone: Comment on above: IG% - Immature Granu locytes (promyelocytes, myelocytes and metamyelocytes) > 1% indicates that a LEFT SHIFT is Present. MCH (RBC) [Entitic mass] 28.0 pg 27.0-32.0 [facility] Work Phone: Nucleated RBC/100 WBC (Bld) [Ratio] 0 % 0-5 [facility] Work Phone: MCHC Auto (RBC) [Mass/Vol]on 05-22-2022 MCHC (RBC) [Mass/Vol] 33.3 g/dL 32-36 [facility] Work Phone: Mucus LM Ql (Urine sed)on Mucus Ql (Urine sed) 0 SEEN /hpf [facility] Work Phone: Nitrite Test strip Ql (U)on 05-22-2022 Nitrite Ql (U) Negative Negative [facility] Work Phone: Platelets bldon 05-22-2022 Platelets (Bld) [#/Vol] 205 10*3/uL 150-450 [facility] Work Phone: Protein Test strip Ql (U)on 05-22-2022 Protein Ql (U) 15 mg/dl Negative [facility] Work Phone: Squamous epithelial cells de tection in urine sediment by light microscopyon 05-22-2022 Epithelial cells.squamous LM Ql (Urine sed) 0-5 SEEN /hpf 0-5 [facility] Work Phone: Urine blood detectionon RBC Ql (U) Negative Negative [facility] Work Phone: RBC Ql (U) 0 SEEN /hpf 0-5 [facility] Work Phone: Urine clarityon 05-22-2022 Clarity (U) Clear Clear [facility] Work Phone: Urine color determinationon 05-22-2022 Color (U) Yellow Yellow [facility] Work Phone: Urine glucose detectionon Glucose Ql (U) Normal mg/dl Normal [facility] Work Phone: Urine leukocyte esterase det ection by dipstickon 05-22-2022 Leukocyte esterase Test strip Ql (U) 25 /ul Negative [facility] Work Phone: Urine pHon 05-22-2022 pH (U) 5.0 [pH] 5.0 - 8.0 [facility] Work Phone: Urine sediment bacteria coun t by microscopy (number/high power field)on 05-22-2022 Bacteria LM.HPF (Urine sed) [#/Area] 0 /[HPF] None Seen [facility] Work Phone: Urine specific gravity measu rementon 05-22-2022 Specific gravity (U) [Rel density] 1.020 1.002-1.030 [facility] Work Phone: Urobilinogen Auto test strip Ql (U)on 05-22-2022 Urobilinogen Ql (U) Normal mg/dl Normal [facility] Work Phone: Absolute lymphocyte counton 05-21-2022 Lymphocytes Auto (Unsp spec) [#/Vol] 1.09 10*3/uL 0.83-4.51 [facility] Work Phone: Basophil percentageon 2021 Basophil percentage 0 SEEN /hpf 0-5 [facility] Work Phone: Basophils/100 WBC (Bld) 0.3 % 0-1 [facility] Work Phone: Bilirubin [Mass/Vol] 0.30 mg/dL 0.20-1.00 [facility] Work Phone: Comment on above: For patients on eltr ombopag therapy, use of Dimension [place] TBIL is not recommended. Chloride [Moles/Vol] 108 mmol/L 98-107 [facility] Work Phone: Eosinophils/100 WBC (Bld) 1.4 % 0-5 [facility] Work Phone: Glucose [Mass/Vol] 116 mg/dL 74-106 [facility] Work Phone: Comment on above: Fasting Glucose resu lt from 100 to 125 mg/dL suggests IMPAIRED HOMEOSTASIS per A.D.A. criteria. Neutrophils (Bld) [#/Vol] 10.3 10*3/uL 2.0-7.7 [facility] Work Phone: Neutrophils/100 WBC (Bld) 85.3 % 47-70 [facility] Work Phone: [phone] Potassium [Moles/Vol] 4.3 mmol/L 3.5-5.1 [facility] Work Phone: Protein [Mass/Vol] 6.9 g/dL 6.4-8.2 [facility] Work Phone: Sodium [Moles/Vol] 139 mmol/L 136-145 [facility] Work Phone: WBC (Bld) [#/Vol] 12.1 10*3/uL 4.4-11.0 [facility] Work Phone: Bilirubin Test strip Ql (U)o n 05-21-2022 Bilirubin Ql (U) Negative Negative [facility] Work Phone: Blood erythrocytes count (nu mber/volume)on 05-21-2022 RBC (Bld) [#/Vol] 5.60 10*6/uL 4.6-6.2 [facility] Work Phone: Blood hemoglobin measurement (mass/volume)on 05-21-2022 Hemoglobin (Bld) [Mass/Vol] 15.5 g/dL 13.0-16.5 [facility] Work Phone: Blood lymphocytes/100 leukoc yteson 05-21-2022 Lymphocytes/100 WBC (Bld) 9.0 % 19-41 [facility] Work Phone: Blood monocytes/100 leukocyt eson 05-21-2022 Monocytes/100 WBC (Bld) 3.8 % 0-10 [facility] Work Phone: Blood platelet mean volumeon 05-21-2022 Platelet mean volume (Bld) [Entitic vol] 10.9 fL 6.2-12.0 [facility] Work Phone: Determination of erythrocyte mean corpuscular volume (MCV)on 05-21-2022 MCV (RBC) [Entitic vol] 84.5 fL 80-94 [facility] Work Phone: Hematocrit Auto (Bld) [Volum e fraction]on 05-21-2022 Hematocrit (Bld) [Volume fraction] 47.3 % 40-54 [facility] Work Phone: Ketones Test strip Ql (U)on 05-21-2022 Ketones Ql (U) 5 mg/dl Negative [facility] Work Phone: Laboratory - Chemistry and C hemistry - challengeon 05-21-2022 ALP [Catalytic activity/Vol] 102 U/L 45-117 [facility] Work Phone: ALT [Catalytic activity/Vol] 13 U/L 16-61 [facility] Work Phone: CO2 [Moles/Vol] 27.0 mmol/L 21.0-32.0 [facility] Work Phone: Globulin (S) [Mass/Vol] 3.3 g/dL 2.2-4.2 [facility] Work Phone: Lipase [Catalytic activity/Vol] 58 U/L 73-393 [facility] Work Phone: Urea nitrogen/Creatinine [Mass ratio] 15.2 mg/mg 10-20 [facility] Work Phone: Laboratory - Hematology and Cell countson 05-21-2022 Erythrocyte distribution width (RBC) [Entitic vol] 37.5 fL 35.1-43.9 [facility] Work Phone: Erythrocyte distribution width (RBC) [Ratio] 12.4 % 11.6-14.6 [facility] Work Phone: Immature granulocytes/100 WBC (Bld) 0.200 % 0.0-0.9 [facility] Work Phone: Comment on above: IG% - Immature Granu locytes (promyelocytes, myelocytes and metamyelocytes) > 1% indicates that a LEFT SHIFT is Present. MCH (RBC) [Entitic mass] 27.7 pg 27.0-32.0 [facility] Work Phone: Nucleated RBC/100 WBC (Bld) [Ratio] 0 % 0-5 [facility] Work Phone: MCHC Auto (RBC) [Mass/Vol]on 05-21-2022 MCHC (RBC) [Mass/Vol] 32.8 g/dL 32-36 [facility] Work Phone: Mucus LM Ql (Urine sed)on Mucus Ql (Urine sed) 0 SEEN /hpf [facility] Work Phone: Nitrite Test strip Ql (U)on 05-21-2022 Nitrite Ql (U) Negative Negative [facility] Work Phone: No Panel Informationon 05-21 Estimated Creatinine Clearance Calc 103.58 ml/min [facility] Work Phone: Estimated GFR (MDRD) Amer 139 mL/min >60 [facility] Work Phone: Comment on above: GFR Calc Estimated GFR (MDRD) Non-Af Amer 115 mL/min >60 [facility] Work Phone: Comment on above: Non- GFR Calc Platelets bldon 05-21-2022 Platelets (Bld) [#/Vol] 215 10*3/uL 150-450 [facility] Work Phone: Protein Test strip Ql (U)on 05-21-2022 Protein Ql (U) 15 mg/dl Negative [facility] Work Phone: Serum or plasma albumin cristina urement (mass/volume)on 05-21-2022 Albumin [Mass/Vol] 3.6 g/dL 3.2-5.0 [facility] Work Phone: Serum or plasma albumin/glob ulin mass ratioon 05-21-2022 Albumin/Globulin [Mass ratio] 1.1 {ratio} 0.9-2.4 [facility] Work Phone: Serum or plasma calcium cristina urement (mass/volume)on 05-21-2022 Calcium [Mass/Vol] 8.9 mg/dL 8.5-10.1 [facility] Work Phone: Serum or plasma creatinine m easurement (mass/volume)on 05-21-2022 Creatinine [Mass/Vol] 0.79 mg/dL 0.70-1.30 [facility] Work Phone: Comment on above: The validity of the calculated GFR & GFRAA in patients over 70 years has not been determined. Clinical correlation is essential. Serum or plasma urea nitroge n measurement (mass/volume)on 05-21-2022 Urea nitrogen [Mass/Vol] 12 mg/dL 7-18 [facility] Work Phone: Squamous epithelial cells de tection in urine sediment by light microscopyon 05-21-2022 Epithelial cells.squamous LM Ql (Urine sed) 0 SEEN /hpf 0-5 [facility] Work Phone: Thin prep Papanicolaou smear with manual screeningon 05-21-2022 Thin prep Papanicolaou smear with manual screening 10 U/L 15-37 [facility] Work Phone: Thin prep Papanicolaou smear with manual screening 4 5-15 [facility] Work Phone: Urine blood detectionon RBC Ql (U) Negative Negative [facility] Work Phone: RBC Ql (U) 0 SEEN /hpf 0-5 [facility] Work Phone: Urine clarityon 05-21-2022 Clarity (U) Clear Clear [facility] Work Phone: Urine color determinationon 05-21-2022 Color (U) Yellow Yellow [facility] Work Phone: Urine glucose detectionon Glucose Ql (U) Normal mg/dl Normal [facility] Work Phone: Urine leukocyte esterase det ection by dipstickon 05-21-2022 Leukocyte esterase Test strip Ql (U) Negative Negative [facility] Work Phone: Urine pHon 05-21-2022 pH (U) 6.0 [pH] 5.0 - 8.0 [facility] Work Phone: Urine sediment bacteria coun t by microscopy (number/high power field)on 05-21-2022 Bacteria LM.HPF (Urine sed) [#/Area] 0 /[HPF] None Seen [facility] Work Phone: Urine specific gravity measu rementon 07-06-2022 Specific gravity (U) [Rel density] 1.020 1.002-1.030 [facility] Work Phone: Urobilinogen Auto test strip Ql (U)on 05-21-2022 Urobilinogen Ql (U) Normal mg/dl Normal [facility] Work Phone: Bilirub Conj SerPl-mCncon Bilirubin.conjugated [Mass/Vol] mg/dL Normal <0.2 [facility] Comment on above: Order Comment: Speci men Type: BLOOD SPECIMEN Ordering Facility: [facility] Address: [address] [place] [address] Performed By: #### 3 016-3, 45813-0, 31889-7 #### [facility] CLIA [id number] [address] [place] [address] [place] CBC W Auto Differential pane l (Bld)on 03-17-2022 Basophils (Bld) [#/Vol] 0.13 10*3/uL High <0.11 [facility] Comment on above: Order Comment: Speci men Type: BLOOD SPECIMEN Ordering Facility: [facility] Address: [address] [place] [address] Performed By: #### 5 7021-8 #### [facility] CLIA [id number] [address] [place] [address] [place] Basophils/100 WBC (Bld) 0.7 % Normal [facility] Comment on above: Order Comment: Speci men Type: BLOOD SPECIMEN Ordering Facility: [facility] Address: [address] [place] [address] Performed By: #### 5 7021-8 #### [facility] CLIA [id number] [address] [place] [address] [place] Differential cell count method Nom (Bld) Auto Normal [facility] Comment on above: Order Comment: Speci men Type: BLOOD SPECIMEN Ordering Facility: [facility] Address: [address] [place] [address] Performed By: #### 5 7021-8 #### [facility] CLIA [id number] [address] [place] [id number] [place] Eosinophils (Bld) [#/Vol] 0.12 10*3/uL Normal <0.46 [facility] Comment on above: Order Comment: Speci men Type: BLOOD SPECIMEN Ordering Facility: [facility] Address: [address] [place] [address] Performed By: #### 5 7021-8 #### [facility] CLIA [id number] [address] [place] [id number] [place] Eosinophils/100 WBC (Bld) 0.7 % Normal [facility] Comment on above: Order Comment: Speci men Type: BLOOD SPECIMEN Ordering Facility: [facility] Address: [address] [place] [address] Performed By: #### 5 7021-8 #### [facility] CLIA [id number] [address] [place] [address] [place] Erythrocyte distribution width (RBC) [Ratio] 12.3 % Normal 11.5-15.0 [facility] Comment on above: Order Comment: Speci men Type: BLOOD SPECIMEN Ordering Facility: [facility] Address: [address] [place] [address] Performed By: #### 5 7021-8 #### [facility] CLIA [id number] [address] [place] [id number] [place] Hematocrit (Bld) [Volume fraction] 52.0 % High 39.0-51.0 [facility] Comment on above: Order Comment: Speci men Type: BLOOD SPECIMEN Ordering Facility: [facility] Address: [address] [place] [address] Performed By: #### 5 7021-8 #### [facility] CLIA [id number] [address] [place] [id number] [place] Hemoglobin (Bld) [Mass/Vol] 16.9 g/dL Normal 13.0-17.0 [facility] Comment on above: Order Comment: Speci men Type: BLOOD SPECIMEN Ordering Facility: [facility] Address: [address] [place] [address] Performed By: #### 5 7021-8 #### [facility] CLIA [id number] [address] [place] [address] [place] IMMATURE GRAN % 0.5 % Normal [facility] Comment on above: Order Comment: Speci men Type: BLOOD SPECIMEN Ordering Facility: [facility] Address: [address] [place] [address] Performed By: #### 5 7021-8 #### [facility] CLIA [id number] [address] [place] [address] [place] IMMATURE GRAN ABS 0.08 k/uL Normal <0.10 [facility] Comment on above: Order Comment: Speci men Type: BLOOD SPECIMEN Ordering Facility: [facility] Address: [address] [place] [address] Performed By: #### 5 7021-8 #### [facility] CLIA [id number] [address] [place] [address] [place] Lymphocytes (Bld) [#/Vol] 1.37 10*3/uL Normal 1.00-4.00 [facility] Comment on above: Order Comment: Speci men Type: BLOOD SPECIMEN Ordering Facility: [facility] Address: [address] [place] [address] Performed By: #### 5 7021-8 #### [facility] CLIA [id number] [address] [place] [address] [place] Lymphocytes/100 WBC (Bld) 7.9 % Normal [facility] Comment on above: Order Comment: Speci men Type: BLOOD SPECIMEN Ordering Facility: [facility] Address: [address] [place] [address] Performed By: #### 5 7021-8 #### [facility] CLIA [id number] [address] [place] [address] [place] MCH (RBC) [Entitic mass] 27.6 pg Normal 26.0-34.0 [facility] Comment on above: Order Comment: Speci men Type: BLOOD SPECIMEN Ordering Facility: A [facility] Address: [address] [place] [address] Performed By: #### 5 7021-8 #### [facility] CLIA [id number] [address] [place] [address] [place] MCHC (RBC) [Mass/Vol] 32.5 g/dL Normal 30.5-36.0 [facility] Comment on above: Order Comment: Speci men Type: BLOOD SPECIMEN Ordering Facility: [facility] Address: [address] [place] [address] Performed By: #### 5 7021-8 #### [facility] CLIA [id number] [address] [place] [address] [place] MCV (RBC) [Entitic vol] 84.8 fL Normal 80.0-100.0 [facility] Comment on above: Order Comment: Speci men Type: BLOOD SPECIMEN Ordering Facility: [facility] Address: [address] [place] [address] Performed By: #### 5 7021-8 #### [facility] CLIA [id number] [address] [place] [address] [place] Monocytes (Bld) [#/Vol] 1.31 10*3/uL High <0.87 [facility] Comment on above: Order Comment: Speci men Type: BLOOD SPECIMEN Ordering Facility: [facility] Address: [address] [place] [address] Performed By: #### 5 7021-8 #### [facility] CLIA [id number] [address] [place] [address] [place] Monocytes/100 WBC (Bld) 7.5 % Normal [facility] Comment on above: Order Comment: Speci men Type: BLOOD SPECIMEN Ordering Facility: [facility] Address: [address] [place] [address] Performed By: #### 5 7021-8 #### [facility] CLIA [id number] [address] [place] [id number] [place] Neutrophils (Bld) [#/Vol] 14.35 10*3/uL High 1.45-7.50 [facility] Comment on above: Order Comment: Speci men Type: BLOOD SPECIMEN Ordering Facility: [facility] Address: [address] [place] [address] Performed By: #### 5 7021-8 #### [facility] CLIA [id number] [address] [place] [id number] [place] Neutrophils/100 WBC (Bld) 82.7 % Normal [facility] Comment on above: Order Comment: Speci men Type: BLOOD SPECIMEN Ordering Facility: [facility] Address: [address] [place] [address] Performed By: #### 5 7021-8 #### [facility] CLIA [id number] [address] [place] [address] [place] Nucleated RBC (Bld) [#/Vol] 10*3/uL Normal <0.01 [facility] Comment on above: Order Comment: Speci men Type: BLOOD SPECIMEN Ordering Facility: [facility] Address: [address] [place] [address] Performed By: #### 5 7021-8 #### [facility] CLIA [id number] [address] [place], [place] [id number] [place] Nucleated RBC/100 WBC (Bld) [Ratio] 0.0 /100 WBC Normal [facility] Comment on above: Order Comment: Speci men Type: BLOOD SPECIMEN Ordering Facility: [facility] Address: [address] [place] [address] Performed By: #### 5 7021-8 #### [facility] CLIA [id number] [address] [place] [id number] [place] Platelet mean volume (Bld) [Entitic vol] 11.9 fL Normal 9.0-12.7 [facility] Comment on above: Order Comment: Speci men Type: BLOOD SPECIMEN Ordering Facility: [facility] Address: [address] [place] [address] Performed By: #### 5 7021-8 #### [facility] CLIA [id number] [address] [address] [place] Platelets (Bld) [#/Vol] 201 10*3/uL Normal 150-400 [facility] Comment on above: Order Comment: Speci men Type: BLOOD SPECIMEN Ordering Facility: [facility] Address: [address] [place] [address] Result Comment: No c lot detected Performed By: #### 5 7021-8 #### [facility] CLIA [id number] [address] [place] [address] [place] RBC (Bld) [#/Vol] 6.13 10*6/uL High 4.20-6.00 [facility] Comment on above: Order Comment: Speci men Type: BLOOD SPECIMEN Ordering Facility: [facility] Address: [address] [place] [address] Performed By: #### 5 7021-8 #### [facility] CLIA [id number] [address] [place] [address] [place] WBC (Bld) [#/Vol] 17.36 10*3/uL High 3.70-11.00 [facility] Comment on above: Order Comment: Speci men Type: BLOOD SPECIMEN Ordering Facility: [facility] Address: [address] [place] [address] Performed By: #### 5 7021-8 #### [facility] CLIA [id number] [address] [place], [place] [id number] [place] Comprehensive metabolic 2000 panelon 03-17-2022 Albumin [Mass/Vol] 4.8 g/dL Normal 3.9-4.9 [place] Comment on above: Order Comment: Speci men Type: BLOOD SPECIMEN Ordering Facility: [facility] [employer] [facility] Address: [address] [place] [address] Performed By: #### 3 016-3, 23106-1, 34408-8 #### [facility] CLIA [id number] [address] [place] [address] [place] ALP [Catalytic activity/Vol] 127 U/L High 38-113 [facility] Comment on above: Order Comment: Speci men Type: BLOOD SPECIMEN Ordering Facility: [facility] [employer] [facility] Address: [address] [place] [address] Performed By: #### 3 016-3, 08604-3, 36167-5 #### [facility] CLIA [id number] [address] [place] [address] [place] ALT [Catalytic activity/Vol] 13 U/L Normal 10-54 [facility] Comment on above: Order Comment: Speci men Type: BLOOD SPECIMEN Ordering Facility: [facility] [employer] [facility] Address: [address] [place] [address] Performed By: #### 3 016-3, 53843-5, 04133-9 #### [facility] CLIA [id number] [address] [place] [address] [place] Anion gap [Moles/Vol] 11 mmol/L Normal 9-18 [facility] Comment on above: Order Comment: Speci men Type: BLOOD SPECIMEN Ordering Facility: [facility] [employer] [facility] Address: [address] [place] [address] Performed By: #### 3 016-3, 44587-5, 43339-2 #### [facility] CLIA [id number] [address] [place], [place] [address] [place] AST [Catalytic activity/Vol] 15 U/L Normal 14-40 [facility] Comment on above: Order Comment: Speci men Type: BLOOD SPECIMEN Ordering Facility: [facility] [employer] [facility] Address: [address] [place] [address] Performed By: #### 3 016-3, 79712-3, 52744-1 #### [facility] CLIA [id number] [address] [address] [place] Bilirubin [Mass/Vol] 0.5 mg/dL Normal 0.2-1.3 [facility] Comment on above: Order Comment: Speci men Type: BLOOD SPECIMEN Ordering Facility: [facility] [employer] [facility] Address: [address] [place] [address] Performed By: #### 3 016-3, 99638-6, 11947-9 #### [facility] CLIA [id number] [address] [place] [id number] [place] Calcium [Mass/Vol] 9.2 mg/dL Normal 8.5-10.2 [place] Comment on above: Order Comment: Speci men Type: BLOOD SPECIMEN Ordering Facility: [facility] Address: [address] [place] [address] Performed By: #### 3 016-3, , 74408-5 #### [facility] CLIA [id number] [address] [place], [place] [address] [place] Chloride [Moles/Vol] 97 mmol/L Normal 97-105 [facility] Comment on above: Order Comment: Speci men Type: BLOOD SPECIMEN Ordering Facility: [facility] Address: [address] [place] [address] Performed By: #### 3 016-3, 24841-3, 67580-0 #### [facility] CLIA [id number] [address] [place] [address] [place] CO2 [Moles/Vol] 27 mmol/L Normal 22-30 [facility] Comment on above: Order Comment: Speci men Type: BLOOD SPECIMEN Ordering Facility: [facility] Address: [address] [place] [address] Performed By: #### 3 016-3, 83840-1, 46468-6 #### [facility] CLIA [id number] [address] [place], [place] [address] [place] Creatinine [Mass/Vol] 0.72 mg/dL Low 0.73-1.22 [facility] Comment on above: Order Comment: Leilani noland Type: BLOOD SPECIMEN Ordering Facility: [facility] Address: [address] [place], [place] [address] Performed By: #### 3 016-3, 91833-2, 61604-1 #### [facility] CLIA [id number] [address] [place] [address] [place] ESTIMATED GLOMERULAR FILTRATION RATE 118 mL/min/1.73m??? Normal >=60 [facility] Comment on above: Order Comment: Leilani noland Type: BLOOD SPECIMEN Ordering Facility: [facility] Address: [address] [place] [address] Result Comment: Trent mated Glomerular Filtration Rate (eGFR) is calculated using the 2020 CKD-EPI creatinine equation. This equation utilizes serum creatinine, sex, and age as parameters. The creatinine assay has traceable calibration to isotope dilution-mass spectrometry. Refer to KDIGO guidelines for clinical interpretation. In patients with unstable renal function, e.g. those with acute kidney injury, the eGFR may not accurately reflect actual GFR. Performed By: #### 3 016-3, 66898-3, 71780-9 #### [facility] CLIA [id number] [address] [place] [address] [place] Glucose [Mass/Vol] 142 mg/dL High 74-99 [place] Comment on above: Order Comment: Leilani noland Type: BLOOD SPECIMEN Ordering Facility: [employer] Address: [address] [place], [place] [address] Result Comment: The [place] Diabetes Association (ADA) provides guidance for cutoff values for fasting glucose and random glucose. The ADA defines fasting as no caloric intake for at least 8 hours. Fasting plasma glucose results between 100 to 125 mg/dL indicate increased risk for diabetes (prediabetes). Fasting plasma glucose results greater than or equal to 126 mg/dL meet the criteria for diagnosis of diabetes. In the absence of unequivocal hyperglycemia, results should be confirmed by repeat testing. In a patient with classic symptoms of hyperglycemia or hyperglycemic crisis, random plasma glucose results greater than or equal to 200 mg/dL meet the criteria for diagnosis of diabetes. Reference: Standards of Medical Care in Diabetes 2016, [place] Diabetes Association. Diabetes Care. 2016.39(Suppl 1). Performed By: #### 3 016-3, 33956-5, 92902-4 #### [facility] CLIA [id number] [address] [place] [address] [place] Potassium [Moles/Vol] 3.9 mmol/L Normal 3.7-5.1 [facility] Comment on above: Order Comment: Speci men Type: BLOOD SPECIMEN Ordering Facility: [facility] Address: [address] [place] [address] Performed By: #### 3 016-3, 87079-4, 52331-3 #### [facility] CLIA [id number] [address] [place] [address] [place] Protein [Mass/Vol] 7.3 g/dL Normal 6.3-8.0 [place] Comment on above: Order Comment: Speci men Type: BLOOD SPECIMEN Ordering Facility: [facility] Address: [address] [place] [address] Performed By: #### 3 016-3, 36470-9, 60022-6 #### [facility] CLIA [id number] [address] [place], [place] [address] [place] Sodium [Moles/Vol] 135 mmol/L Low 136-144 [place] Comment on above: Order Comment: Speci men Type: BLOOD SPECIMEN Ordering Facility: [facility] Address: [address] [place] [address] Performed By: #### 3 016-3, 06646-5, 75806-8 #### [facility] CLIA [id number] [address] [place], [place] [address] [place] Urea nitrogen [Mass/Vol] 10 mg/dL Normal 9-24 [facility] Comment on above: Order Comment: Speci men Type: BLOOD SPECIMEN Ordering Facility: [facility] Address: [address] [place] [address] Performed By: #### 3 016-3, 69666-8, 79265-4 #### [facility] CLIA [id number] [facility] [place] [address] [place] HAV IgM Ser Qlon 03-17-2022 HAV IgM Ql (S) Negative Normal Negative [facility] Comment on above: Order Comment: Speci men Type: BLOOD SPECIMEN Ordering Facility: [facility] [employer] [facility] Address: [address] [place] [address] Result Comment: No e vidence of recent infection with Hepatitis A virus. Performed By: #### 1 1011-4 #### [facility] CLIA [id number] [address] [place] [address] [place] HBV core IgM Ser Qlon 2021 HBV core IgM Ql (S) Negative Normal Negative [facility] Comment on above: Order Comment: [facility] Type: BLOOD SPECIMEN Ordering Facility: [facility] Address: [address] [place] [address] Result Comment: No e vidence of recent infection with Hepatitis B virus. Should recent infection be suspected, repeat testing may be considered 3-4 weeks after this draw. Performed By: #### 1 0900-9, MICRO, HIV12M, 89089-7, 05989-0 #### [facility] CLIA [id number] [address] [place] [address] [place] HBV surface Ab IA Ql (S)on 0 03-17-2022 HBV surface Ag Ql (S) Negative Normal Negative [facility] Comment on above: Order Comment: Speci [facility] Type: BLOOD SPECIMEN Ordering Facility: [facility] Address: [address] [place], [place] [address] Performed By: #### 1 0900-9, MICRO, HIV12M, 25581-6, 87249-3 #### [facility] CLIA [id number] [address] [place] [address] [place] HCV Ab Ser Qlon 03-17-2022 HCV Ab Ql (S) Positive Abnormal Negative [facility] Comment on above: Order Comment: Leilani noland Type: BLOOD SPECIMEN Ordering Facility: [facility] Address: [address] [place] [address] Result Comment: Conf irmation with Hepatitis C RNA has been ordered and charged. Performed By: #### 1 6128-1, 32465-9 #### [facility] CLIA [id number] [address] [place] [address] [place] HCV RNA SerPl MEME+probe-aCnc on 03-17-2022 HCV RNA MEME+probe Qn Not detected Normal HCV RNA not detected by PCR. [facility] Comment on above: Order Comment: Leilani noland Type: BLOOD SPECIMEN Ordering Facility: [facility] Address: [address] [place] [address] Performed By: #### 1 6128-1, 55310-7 #### [facility] CLIA [id number] [address] [place] [address] [place] HCV RNA MEME+probe Qn Not detected Normal HCV RNA not detected by PCR. [facility] Comment on above: Order Comment: Leilani noland Type: BLOOD SPECIMEN Ordering Facility: [facility] Address: [address] [place] [address] Performed By: #### 1 1011-4 #### [facility] CLIA [id number] [address] [place] [address] [place] HIV-1/2 AB CONFIRMATORYon HIV 1 and 2 Ab IA.rapid Nom Negative Normal Negative [facility] Comment on above: Order Comment: Leilani noland Type: BLOOD SPECIMEN Ordering Facility: [facility] Address: [address] [place] [address] Result Comment: The result suggests no evidence of infection with HIV-1 or HIV-2. If the confirmatory test is done in reflex to a positive HIV screening test, this could indicate a false-positive result in the screening test. It can also be seen in early stages of HIV infection where HIV-1 p24 antigen is present, but not antibody. HIV nucleic acid testing on a new specimen is recommended to rule out a acute infection. Alternatively, repeat HIV serology testing is recommended 2 to 3 weeks after this. HIV Information: [place] Rev. Code 3701.243(E): This information has been disclosed to you from confidential records protected from disclosure by state law. You shall make no further disclosure of this information without the specific, written, and informed release of the individual to whom it pertains or as otherwise permitted by state law. A general authorization for the release of medical or other information is not sufficient for the purpose of the release of HIV test results or diagnoses. Performed By: #### 1 1011-4 #### [facility] CLIA [id number] [address] [place] [address] [place] THYROID PEROXIDASE ANTIBODY BLOODon 03-17-2022 TPO Ab Qn [IU]/mL Normal <5.6 [facility] Comment on above: Order Comment: Jovannyi men Type: BLOOD SPECIMEN Ordering Facility: [facility] Address: [address] [place] [address] Result Comment: Thyr oid Peroxidase Antibody test is used as an aid in diagnosis of autoimmune thyroid disease. Clinical correlation is required. Performed By: #### 1 1011-4 #### [facility] CLIA [id number] [address] [place] [address] [place] TSH SerPl-aCncon 03-17-2022 TSH Qn 0.918 m[IU]/L Normal 0.270-4.200 [facility] Comment on above: Order Comment: Jovannyjacques noland Type: BLOOD SPECIMEN Ordering Facility: [facility] Address: [address] [place] [address] Performed By: #### 3 016-3, 88615-0, 06156-9 #### [facility] CLIA [id number] [address] [place] [address] [place] Nito 03-05-2022 CNPN Telephone (WSTR) ----- JOSE MCNAMARA ([id number]) 1980 M Date Time Provider Department 03/05/22 REINALDO PEREIRA WSTR During your visit today, we recorded the following information about you: Reinaldo Pereira PA-C 03/05/2022 7:12 AM Signed Let patient know he was negative for COVID and influenza. Klaudia Martinez 03/05/2022 8:20 AM Signed Patient given results and verbalized understanding of instructions given. Klaudia Martinez Allergies As of Date: 03/05/2022 Noted Allergy Reaction PENICILLINS 05/29/2015 5 - Intolerance Date Reviewed: 03/04/2022 Reviewed by: Edward Powell APRN.EMAIL CAMPAIGN SPECIALIST - Fully Assessed Reason for Visit: Results [95] Prescriptions as of 03/05/2022 - ondansetron orally disintegrating (ZOFRAN ODT) 4 mg disintegrating tablet Take 1 tablet by mouth every 6 hours as needed for nausea/vomiting. - carbamide peroxide (DEBROX) 6.5 % otic solution Use 5 Drops in both ears twice daily. - albuterol HFA (PROAIR HFA) 90 mcg/actuation inhaler Inhale 2 Puffs as instructed every 4 hours as needed. - fluticasone (FLONASE) 50 mcg/actuation nasal spray Use 2 Sprays in each nostril once daily. Rinse mouth after use. - guaiFENesin (MUCINEX) 600 mg 12 hr tablet Take 2 tablets by mouth twice daily. - famotidine (PEPCID) 20 mg tablet Take 1 tablet by mouth once daily. - ferrous sulfate 325 mg (65 mg iron) tablet Take 325 mg by mouth once daily. - MAVYRET 100-40 mg tablet Take 1 tablet by mouth once daily. - OLANZapine (ZYPREXA) 2.5 mg tablet Take 1 tablet by mouth once daily. - ondansetron (ZOFRAN) 4 mg tablet Take 1 tablet by mouth as needed. - buprenorphine SL (SUBUTEX) 2 mg subl Dissolve 2 mg under the tongue three times daily. - OXcarbazepine (TRILEPTAL) 600 mg tablet Take 1.5 tablets by mouth once daily. 900 MG daily. - fluvoxaMINE (LUVOX) 100 mg tablet Take 1 tablet by mouth daily at bedtime. - propranolol (INDERAL) 20 mg tablet Take 1 tablet by mouth twice daily. - acetaminophen (TYLENOL EXTRA STRENGTH) 500 mg tablet Take 1 tablet by mouth every 8 hours as needed for Pain. - BUPRENORPHINE HCL/NALOXONE HCL (SUBOXONE SUBLINGUAL) Dissolve under the tongue. Problem List As Of Date 03/05/2022 Noted Resolved History of head injury [Z87.828] 06/10/2018 History of bleeding peptic ulcer [Z87.11] Encounter Status:Closed by KLAUDIA MARTINEZ on 03/05/22 Normal [facility] CNOVon 03-04-2022 CNOV Office Visit (UCWSTR ) ----- JOSE MCNAMARA ([id number]) 1980 M Date Time Provider Department 03/04/22 11:15 AM EDWARD POWELL [facility] During your visit today, we recorded the following information about you: Temperature Pulse Respiration Blood pressure 98.6 degrees 77/minute 18/minute 102/74 Weight 62.9 kg Edward Powell APRN.EMAIL CAMPAIGN SPECIALIST 03/04/2022 11:44 AM Signed Subjective HPI Nontoxic-appearing male presents urgent care chief complaint flulike symptoms. Duration of symptoms 1 day. Associated symptoms abrupt onset of body aches chills fatigue nausea headache sinus congestion sore throat and cough. Denies any known sick contacts. 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 Most predominant symptom today is fatigue and body aches. Denies history of COVID-19 recently. Is not vaccinated. Denies any high fevers productive cough chest pain shortness of breath pleuritic pain hemoptysis vomiting abdominal pain change in bowel or bladder habits. Past medical history prescription medication use allergies reviewed. .Patient presents with: Sinus Problem: sinus, nausea and bodyaches x 1 day PAST MEDICAL HISTORY Diagnosis Date - Bipolar 1 disorder (HCC) bethany and depression - History of alcohol abuse - History of bleeding peptic ulcer 2016 excess ibuprofen - History of head injury 2010 ~2010 and 1997 - History of heroin use - Migraine since head injury PAST SURGICAL HISTORY Procedure Laterality Date - COLONOSCOPY 2014 negative - PAST SURGICAL HISTORY OF 1998 facial surgery - PAST SURGICAL HISTORY OF spinal cyst removal - REPAIR INGUINAL HERNIA 02/14/2021 - RPR 1ST INGUN HRNA AGE 5 YRS/> REDUCIBLE 07/19/2019 Hernia repair, inguinal, femoral hernia, indirect femoral hernia ALLERGIES Penicillins MEDICATIONS fluticasone (FLONASE) 50 mcg/actuation nasal spray Use 2 Sprays in each nostril once daily. Rinse mouth after use. OLANZapine (ZYPREXA) 2.5 mg tablet Take 1 tablet by mouth once daily. buprenorphine SL (SUBUTEX) 2 mg subl Dissolve 2 mg under the tongue three times daily. OXcarbazepine (TRILEPTAL) 600 mg tablet Take 1.5 tablets by mouth once daily. 900 MG daily. fluvoxaMINE (LUVOX) 100 mg tablet Take 1 tablet by mouth daily at bedtime. propranolol (INDERAL) 20 mg tablet Take 1 tablet by mouth twice daily. acetaminophen (TYLENOL EXTRA STRENGTH) 500 mg tablet Take 1 tablet by mouth every 8 hours as needed for Pain. BUPRENORPHINE HCL/NALOXONE HCL (SUBOXONE SUBLINGUAL) Dissolve under the tongue. carbamide peroxide (DEBROX) 6.5 % otic solution Use 5 Drops in both ears twice daily. albuterol HFA (PROAIR HFA) 90 mcg/actuation inhaler Inhale 2 Puffs as instructed every 4 hours as needed. guaiFENesin (MUCINEX) 600 mg 12 hr tablet Take 2 tablets by mouth twice daily. famotidine (PEPCID) 20 mg tablet Take 1 tablet by mouth once daily. ferrous sulfate 325 mg (65 mg iron) tablet Take 325 mg by mouth once daily. MAVYRET 100-40 mg tablet Take 1 tablet by mouth once daily. ondansetron (ZOFRAN) 4 mg tablet Take 1 tablet by mouth as needed. FAMILY HISTORY Problem Relation Age of Onset - Diabetes Maternal Uncle - other (tumors) Son spontaneous tumors- benign Social History Tobacco Use - Smoking status: Current Every Day Smoker Packs/day: 1.00 Types: Cigarettes - Smokeless tobacco: Never Used Substance Use Topics - Alcohol use: No Comment: past alcohol use - Drug use: Not Currently Comment: past drug use- heroin BP 102/74 Pulse 77 Temp 37 ?C (98.6 ?F) (Tympanic) Resp 18 Wt 62.9 kg (138 lb 9.6 oz) BMI 20.47 kg/m? 96%. Review of Systems Constitutional: Positive for chills, fever and malaise/fatigue. HENT: Positive for congestion, sinus pain and sore throat. Negative for ear discharge and ear pain. Eyes: Negative for blurred vision, pain, discharge and redness. Respiratory: Positive for cough. Negative for hemoptysis, sputum production, shortness of breath, wheezing and stridor. Cardiovascular: Negative for chest pain. Gastrointestinal: Positive for nausea. Negative for abdominal pain, diarrhea and vomiting. Musculoskeletal: Positive for myalgias. Skin: Negative for itching and rash. Neurological: Positive for headaches. Negative for dizziness. Objective Physical Exam Vitals and nursing note reviewed. Constitutional: General: He is not in acute distress. Appearance: He is not diaphoretic. HENT: Head: Normocephalic and atraumatic. Jaw: No trismus, tenderness, swelling or malocclusion. Right Ear: Hearing, tympanic membrane, ear canal and external ear normal. No decreased hearing noted. No drainage, swelling or tenderness. No mastoid tenderness. Tympanic membrane is not perforated, erythematous or bulging. Left Ear: Hearing, tympanic membrane, ear canal and external ear normal. No decreased hearing noted. No drainage, sw (more content not included)... [facility] (ALBINA) ----- JOSE MCNAMARA ([id number]) 1980 M Date Time Provider Department 06/03/21 MILIND CLEMONS During your visit today, we recorded the following information about you: Roopa Conteh Ma 06/03/2021 8:27 AM Signed ----- Message from Milind Clemons MD sent at 06/02/2021 10:33 AM EDT ----- The lab results all look good. No change in plan. Roopa Conteh Ma 06/03/2021 8:27 AM Signed Patient informed. Roopa Conteh Ma Allergies As of Date: 06/03/2021 Noted Allergy Reaction PENICILLINS 05/29/2015 5 - Intolerance Date Reviewed: 05/30/2021 Reviewed by: Milind Candelario RN - Fully Assessed Reason for Visit: Results [95] Prescriptions as of 06/03/2021 - albuterol HFA (PROAIR HFA) 90 mcg/actuation inhaler Inhale 2 Puffs as instructed every 6 hours as needed. - buprenorphine SL (SUBUTEX) 2 mg subl Dissolve 2 mg under the tongue three times daily. - OXcarbazepine (TRILEPTAL) 600 mg tablet Take 1.5 tablets by mouth once daily. 900 MG daily. - fluvoxaMINE (LUVOX) 100 mg tablet Take 1 tablet by mouth daily at bedtime. - fluticasone (FLONASE) 50 mcg/actuation nasal spray Use 1 [place] in each nostril once daily. - propranolol (INDERAL) 20 mg tablet Take 1 tablet by mouth twice daily. - acetaminophen (TYLENOL EXTRA STRENGTH) 500 mg tablet Take 1 tablet by mouth every 8 hours as needed for Pain. - BUPRENORPHINE HCL/NALOXONE HCL (SUBOXONE SUBLINGUAL) Dissolve under the tongue. Problem List As Of Date 06/03/2021 Noted Resolved History of head injury [Z87.828] 06/10/2018 History of bleeding peptic ulcer [Z87.11] Encounter Status:Closed by ROOPA CONTEH MA on 06/03/21 Normal [facility] Basic Metabolic Panelon 05-2 Calcium 9.2 mg/dL Normal 8.4-10.2 [facility] Comment on above: Performed By: #### H EMDF, LFT3, BMP3, ETOH4 ####[employer] [id number] [place] [address] Glucose mass conc 71 mg/dL Normal 70-100 [employer] Comment on above: Performed By: #### H EMDF, LFT3, BMP3, ETOH4 ####[id number] [place], [place] Urea nitrogen 12 mg/dL Normal 7-20 [facility] Comment on above: Performed By: #### H EMDF, LFT3, BMP3, ETOH4 ####[id number] [place], [place] Anion gap 13 Normal [facility] Comment on above: Performed By: #### H EMDF, LFT3, BMP3, ETOH4 ####[id number] [place], [place] CO2 24 mmol/L Normal 22-30 [facility] Comment on above: Performed By: #### H EMDF, LFT3, BMP3, ETOH4 ####[id number] [place], [place] Creatinine 0.75 mg/dL Normal 0.52-1.25 [facility] Comment on above: Performed By: #### H EMDF, LFT3, BMP3, ETOH4 ####[address] eGFR (black) mL/min/{1.73_m2} Normal >60 [facility] Comment on above: Performed By: #### H EMDF, LFT3, BMP3, ETOH4 ####[address] eGFR (non-black) mL/min/{1.73_m2} Normal >60 [facility] Comment on above: Result Comment: Sour ce- MDRD equation with creatinine calibration to IDMS(NKDEP) eGFR not recommended for drug dose adjustment Performed By: #### H EMDF, LFT3, BMP3, ETOH4 ####[id number] [place], [place] Chloride 102 mmol/L Normal 98-107 [facility] Comment on above: Performed By: #### H EMDF, LFT3, BMP3, ETOH4 ####[id number] [place], [place] Potassium molar conc 4.3 mmol/L Normal 3.5-5.1 [facility] Comment on above: Performed By: #### H EMDF, LFT3, BMP3, ETOH4 ####[id number] [facility] [place] Sodium 139 mmol/L Normal 137-145 [facility] Comment on above: Performed By: #### H EMDF, LFT3, BMP3, ETOH4 ####[id number] [place], [place] Drugs of Abuseon 04-11-2018 Opiates, Ur Positive Normal [facility] Comment on above: Performed By: #### D RGA4, THC4 ####[id number] [place], [place] Phencyclidine (PCP), Ur Negative Normal [facility] Comment on above: Result Comment: The expected value for all of the drugs listedabove is Negative.The following drugs or drug groups have been screenedfor by Immunoassay at the following thresholds:Amphetamine class (1000 ng/mL), Barbiturates (200 ng/mL),Benzodiazepines (200 ng/mL), Cocaine (300 ng/mL),Methadone (300 ng/mL), Opiates (300 ng/mL),Oxycodone (100 ng/mL), and PCP (25 ng/mL).NOTE: These results are for medical treatment only.Analysis performed using non-forensic procedures. Performed By: #### D RGA4, THC4 ####[id number] [facility] [place] Cocaine, Ur Negative Normal [facility] Comment on above: Performed By: #### D RGA4, THC4 ####[id number] [facility] [place] Methadone, Ur Negative Normal [facility] Comment on above: Performed By: #### D RGA4, THC4 ####[id number] [facility] [place] Amphetamines, Ur Negative Normal [facility] Comment on above: Performed By: #### D RGA4, THC4 ####[id number] [facility] [place] Benzodiazepines, Ur Negative Normal [facility] Comment on above: Performed By: #### D RGA4, THC4 ####[id number] [place], [place] Barbiturates, Ur Negative Normal [facility] Comment on above: Performed By: #### D RGA4, THC4 ####[address] Oxycodone/Oxymorphine, Ur Negative Normal [facility] Comment on above: Performed By: #### D RGA4, THC4 ####[address] Ethanol Serum/Plasmaon 04-11 Ethanol-Serum/Plasma < 0.010 Normal 0.000-0.010 [facility] Comment on above: Result Comment: NOTE : This result is for medical treatment only. Analysis performed using non-forensic procedures. Performed By: #### H EMDF, LFT3, BMP3, ETOH4 ####[address] Hemogram w/ Autodiffon 04-11 Abs Baso Cnt 0.1 10*3/uL Normal 0.0-0.2 [facility] Comment on above: Performed By: #### H EMDF, LFT3, BMP3, ETOH4 ####[address] Basophils/100 WBC Auto (Bld) 0.6 % Normal 0.0-2.0 [facility] Comment on above: Performed By: #### H EMDF, LFT3, BMP3, ETOH4 ####[address] Eosinophils 0.1 10*3/uL Normal 0.0-0.5 [facility] Comment on above: Performed By: #### H EMDF, LFT3, BMP3, ETOH4 ####[address] Eosinophils/100 leukocytes 0.5 % Low 1.0-6.0 [facility] Comment on above: Performed By: #### H EMDF, LFT3, BMP3, ETOH4 ####[address] Erythrocyte distribution width Auto Ratio (RBC) 13.1 % Normal 11.5-14.5 [facility] Comment on above: Performed By: #### H EMDF, LFT3, BMP3, ETOH4 ####[address] Erythrocytes (RBC) 5.79 10*6/uL Normal 4.40-5.90 [facility] Comment on above: Performed By: #### H EMDF, LFT3, BMP3, ETOH4 ####[address] Granulocytes/100 WBC (Bld) 78.4 % Normal 40.0-80.0 [facility] Comment on above: Performed By: #### H EMDF, LFT3, BMP3, ETOH4 ####[address] Hematocrit (HCT) 46.7 % Normal 40.0-52.0 [facility] Comment on above: Performed By: #### H EMDF, LFT3, BMP3, ETOH4 ####[address] Hemoglobin mass conc (Bld) 15.6 g/dL Normal 13.0-18.0 [facility] Comment on above: Performed By: #### H EMDF, LFT3, BMP3, ETOH4 ####[address] Lymphocytes 2.7 10*3/uL Normal 1.0-4.3 [facility] Comment on above: Performed By: #### H EMDF, LFT3, BMP3, ETOH4 ####[address] Lymphocytes/100 leukocytes 13.6 % Low 20.0-40.0 [facility] Comment on above: Performed By: #### H EMDF, LFT3, BMP3, ETOH4 ####[id number] [place], [place] MCH 27.0 pg Normal 26.0-34.0 [facility] Comment on above: Performed By: #### H EMDF, LFT3, BMP3, ETOH4 ####[id number] [place], [place] MCHC mass conc (RBC) 33.4 % Normal 32.0-36.0 [facility] Comment on above: Performed By: #### H EMDF, LFT3, BMP3, ETOH4 ####[id number] [place], [place] MCV 80.7 fL Normal 80.0-98.0 [facility] Comment on above: Performed By: #### H EMDF, LFT3, BMP3, ETOH4 ####[address] Monocytes 1.4 10*3/uL High 0.0-0.8 [facility] Comment on above: Performed By: #### H EMDF, LFT3, BMP3, ETOH4 ####[address] Monocytes/100 leukocytes 6.9 % Normal 2.0-10.0 [facility] Comment on above: Performed By: #### H EMDF, LFT3, BMP3, ETOH4 ####[address] Neutrophils 15.4 10*3/uL High 1.8-7.0 [facility] Comment on above: Performed By: #### H EMDF, LFT3, BMP3, ETOH4 ####[id number] [place], [place] Platelet mean volume (PMV) 9.4 fL Normal 7.4-10.4 [facility] Comment on above: Performed By: #### H EMDF, LFT3, BMP3, ETOH4 ####[address] Platelets 252 10*3/uL Normal 140-440 [facility] Comment on above: Performed By: #### H EMDF, LFT3, BMP3, ETOH4 ####[address] WBC (Leukocytes) 19.7 10*3/uL High 3.6-10.7 [facility] Comment on above: Performed By: #### H EMDF, LFT3, BMP3, ETOH4 ####[address] Hepatic Functionon 8 Alanine aminotransferase (ALT) 43 U/L Normal 13-69 [facility] Comment on above: Performed By: #### H EMDF, LFT3, BMP3, ETOH4 ####[address] Alkaline phosphatase (ALP) 70 U/L Normal 38-126 [facility] Comment on above: Performed By: #### H EMDF, LFT3, BMP3, ETOH4 ####[address] Aspartate aminotransferase (AST) 21 U/L Normal 15-46 [facility] Comment on above: Performed By: #### H EMDF, LFT3, BMP3, ETOH4 ####[address] Bilirubin (direct) 0.0 mg/dL Normal 0.0-0.3 [facility] Comment on above: Performed By: #### H EMDF, LFT3, BMP3, ETOH4 ####[address] Bilirubin (total) 0.5 mg/dL Normal 0.2-1.3 [facility] Comment on above: Performed By: #### H EMDF, LFT3, BMP3, ETOH4 ####[address] Protein 7.8 g/dL Normal 6.3-8.2 [facility] Comment on above: Performed By: #### H EMDF, LFT3, BMP3, ETOH4 ####[id number] [place] [address] Albumin 4.7 g/dL Normal 3.5-5.0 [facility] Comment on above: Performed By: #### H EMDF, LFT3, BMP3, ETOH4 ####[employer] [id number] [place] [address] THC, Urineon 04-11-2018 THC, Ur Positive Normal [facility] Comment on above: Result Comment: Thre shold= 50 ng/mL Performed By: #### D RGA4, THC4 ####[id number] [place] [address] Stool lactoferrin detection by immunoassay Lactoferrin IA ([facility] Work Phone: Vital Signs Date Time Vital Sign Value Performing Clinician Facility 05-27-2025 20:52-0400 Diastolic blood pressure 72 mm[Hg] No Generic Provider [facility] 05-27-2025 20:52-0400 Heart rate 72 /min No Generic Provider [facility] 05-27-2025 20:52-0400 Respiratory rate 16 /min No Generic Provider [facility] 05-27-2025 20:52-0400 SaO2% (BldA) [Mass fraction] 94 % No Generic Provider [facility] 05-27-2025 20:52-0400 Systolic blood pressure 138 mm[Hg] No Generic Provider [facility] 05-27-2025 17:59-0400 Body height 175.3 cm No Generic Provider [facility] 05-27-2025 17:59-0400 Body mass index (BMI) [Ratio] 21.41 kg/m2 No Generic Provider [facility] 05-27-2025 17:59-0400 Body temperature 98.4 [degF] No Generic Provider [facility] 05-27-2025 17:59-0400 Body weight 65.77 kg No Generic Provider [facility] 04-19-2025 11:20-0400 Body mass index (BMI) [Ratio] 20.78 kg/m2 Polly Aviles DO Work Phone: [facility] 04-19-2025 11:20-0400 Body weight 63.82 kg Polly Falls DO Work Phone: [facility] 04-19-2025 11:20-0400 Diastolic blood pressure 60 mm[Hg] Polly Falls DO Work Phone: [facility] 04-19-2025 11:20-0400 Heart rate 67 /min Polly Falls DO Work Phone: [facility] 04-19-2025 11:20-0400 Systolic blood pressure 104 mm[Hg] Polly Falls DO Work Phone: [facility] 04-04-2025 10:04-0400 Body height 175.[address] Josselyn Galindo MD Work Phone: [facility] 04-04-2025 10:04-0400 Body mass index (BMI) [Ratio] 21.5 kg/m2 Dr. Josselyn Galindo MD Work Phone: [facility] 04-04-2025 10:04-0400 Body weight 66.[address] Josselyn Galindo MD Work Phone: [facility] 04-04-2025 10:04-0400 Diastolic blood pressure 69 mm[Hg] Dr. Josselyn Galindo MD Work Phone: [facility] 04-04-2025 10:04-0400 Heart rate 68 /min Dr. Josselyn Galindo MD Work Phone: [facility] 04-04-2025 10:04-0400 SaO2% (BldA) [Mass fraction] 93 % Dr. Josselyn Galindo MD Work Phone: [facility] 04-04-2025 10:04-0400 Systolic blood pressure 102 mm[Hg] Dr. Josselyn Galindo MD Work Phone: [facility] 12-27-2024 10:26-0500 Body height 175.[address] Josselyn Galindo MD Work Phone: [facility] 12-27-2024 10:26-0500 Body mass index (BMI) [Ratio] 22 kg/m2 Dr. Josselyn Galindo MD Work Phone: [facility] 12-27-2024 10:26-0500 Body temperature 97.3 [degF] Dr. Josselyn Galindo MD Work Phone: [facility] 12-27-2024 10:26-0500 Body weight 67.[address] Josselyn Galindo MD Work Phone: [facility] 12-27-2024 10:26-0500 Diastolic blood pressure 62 mm[Hg] Dr. Josselyn Galindo MD Work Phone: [facility] 12-27-2024 10:26-0500 Heart rate 68 /min Dr. Josselyn Galindo MD Work Phone: [facility] 12-27-2024 10:26-0500 Respiratory rate 16 /min Dr. Josselyn Galindo MD Work Phone: [facility] 12-27-2024 10:26-0500 SaO2% (BldA) [Mass fraction] 93 % Dr. Josselyn Galindo MD Work Phone: [facility] 12-27-2024 10:26-0500 Systolic blood pressure 102 mm[Hg] Dr. Josselyn Galindo MD Work Phone: [facility] 10-04-2024 10:44-0500 Body mass index (BMI) [Ratio] 22.3 kg/m2 Dr. Josselyn Galindo MD Work Phone: [facility] 10-04-2024 10:44-0500 Body weight 68.[address] Jsoselyn Galindo MD Work Phone: [facility] 08-03-2024 10:29-0400 Body mass index (BMI) [Ratio] 20.64 kg/m2 Polly Aviles DO Work Phone: [facility] 08-03-2024 10:29-0400 Body weight 63.41 kg Polly Falls DO Work Phone: [facility] 08-03-2024 10:29-0400 Diastolic blood pressure 64 mm[Hg] Polly Falls DO Work Phone: [facility] 08-03-2024 10:29-0400 Heart rate 91 /min Polly Falls DO Work Phone: [facility] 08-03-2024 10:29-0400 Systolic blood pressure 94 mm[Hg] Polly Falls DO Work Phone: [facility] 03-08-2024 14:45-0400 Body temperature 98.1 [degF] Dr. Josselyn Galindo Work Phone: [facility] 03-08-2024 14:45-0400 Diastolic blood pressure 78 mm[Hg] Dr. Josselyn Galindo Work Phone: [facility] 03-08-2024 14:45-0400 Heart rate 57 /min Dr. Josselyn Galindo Work Phone: [facility] 03-08-2024 14:45-0400 Respiratory rate 16 /min Dr. Josselyn Galindo Work Phone: [facility] 03-08-2024 14:45-0400 SaO2% (BldA) [Mass fraction] 96 % Dr. Josselyn Galindo Work Phone: [facility] 03-08-2024 14:45-0400 Systolic blood pressure 123 mm[Hg] Dr. Josselyn Galindo Work Phone: [facility] 03-08-2024 12:34-0400 Body height 175.[address] Josselyn Galindo Work Phone: [facility] 03-08-2024 12:34-0400 Body mass index (BMI) [Ratio] 18.8 kg/m2 Dr. Josselyn Galindo Work Phone: [facility] 03-08-2024 12:34-0400 Body weight [address] Josselyn Galindo Work Phone: [facility] 01-07-2024 08:56-0500 Body height 175.[address] Josselyn Galindo Work Phone: [facility] 01-07-2024 08:56-0500 Body mass index (BMI)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 05-27-2025 Ct cervical spine w/ o contrast material Yoko Bradley PA-C Work Phone: Start: 05-27-2025 Ct head/brain w/o co ntrast material Yoko PLUMMERC Work Phone: Start: 05-27-2025 Radiologic exam ches t single view Yoko Bradley PA-C Work Phone: Start: 05-27-2025 Radiologic examinati on pelvis 1/2 views Yoko Bradley PA-C Work Phone: Start: 05-27-2025 Comprehensive metabolic panel Yoko Bradley PA-C Work Phone: Start: 05-27-2025 Ethanol [Mass/volume ] in Serum or Plasma Yoko Bradley PA-C Work Phone: Start: 04-04-2025 Dehydroepiandrostero ne sulfate level Dr. Josselyn Galindo MD Work Phone: Start: 04-04-[address]25 [address] hormone measurement Dr. Josselyn Galindo MD Work Phone: Comment on above: FEMALE:Follicular: 1 .4 - 18.1 mIU/mLMidcycle: 3.4 - 33.4 mIU/mLLuteal: 1.5 - 9.1 mIU/mLPost Menopause: 23.0 - 116.3 mIU/mLMALE: 1.4 - 18.1 mIU/mL NORMAL REFERENCE RANGES FEMALE FOLLICULAR 2.3 - 12.6 mIU/mL MID-CYCLE PEAK 5.2 - 17.5 mIU/mL LUTEAL 1.7 - 12.9 mIU/mL POST-MENOPAUSAL ON MHT 5.9 - 72.8 mIU/mL NOT ON MHT 12.7 - 132.2 mlU/mL MALE 0.7 - 10.8 mIU/mL Start: 04-04-[address] Josselyn Galindo MD Work Phone: Comment on above: FEMALE:Follicular: 1 .9-12.5 mIU/mLMidcycle: 8.7-76.3 mIU/mLLuteal: 0.5-16.9 mIU/mLPost Menopause: 15.9-54.0 mIU/mLMALE:20-70 Years: 1.5-9.3 mIU/mL>70 Years: 3.1-34.6 mIU/mL Start: 04-04-2025 Prostate specific an tigen measurement Dr. Josselyn Galindo MD Work Phone: Comment on above: This test was perfor med using the [employer] tPSA method. Measured values of a patient sample can vary depending on the testing procedure used. PSA values determined on patient samples by different testing procedures cannot be used interchangeably. If there is a change in PSA assays while monitoring therapy, sequential testing should be performed to confirm baseline values. Start: 01-05-2025 Measurement of renal function Dr. Josselyn Galindo MD Work Phone: Comment on above: GFR Calc Start: 01-05-2025 Vitamin D, 25-hydrox y measurement Dr. Josselyn Galindo MD Work Phone: Comment on above: Vitamin D 25(OH) Sta tus Range Deficiency <20 ng/mL (50nmol/L) Insufficiency 20 - 30 ng/mL (50 - 75 nmol/L) Sufficiency 30 - 100 ng/mL (75 - 250 nmol/L) Toxicity >100 ng/mL (>250 nmol/L) Start: 12-28-2024 Measurement of renal function Dr. Josselyn Galindo MD Work Phone: Comment on above: GFR Calc Start: 03-08-[address] Josselyn Galindo Work Phone: Start: 01-07-2024 Coronavirus COVID-[address] Josselyn Galindo Work Phone: Start: 01-07-2024 SARS-CoV-2, Influenz a & RSV (PCR) Dr. Josselyn Galindo Work Phone: Start: 12-25-2023 Radionuclide imaging of liver and/or biliary tract using radioactive isotope Dr. Josselyn Galindo Work Phone: Start: 12-25-2023 US scan of gallbladder Dr. Josselyn Galindo Work Phone: Start: 12-21-2023 Computed tomography of abdomen and pelvis with contrast No Primary Care Physician Start: 12-17-2023 Diagnostic radiograp hy of abdomen No Primary Care Physician Start: 09-29-2023 Intranasal biopsy No Pr imary Care Physician Start: 09-29-2023 Microlaryngoscopy No Pr imary Care Physician Start: 08-28-2023 Videoswallow No Primary Care Physician Start: 10-03-2023 CT of chest without contrast No Primary Care Physician Start: 08-13-2023 Computed tomography of abdomen and pelvis with contrast No Primary Care Physician Start: 03-27-2023 Diagnostic radiograp hy of abdomen No Primary Care Physician Start: 03-03-2023 Computed tomography of abdomen and pelvis with contrast No Primary Care Physician Start: 11-06-2022 COVID WITH FLUA+B, ROUTINE Edward Paynejasmin [employer]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 Work Phone: Start: 05-22-2022 Computed tomography of abdomen and pelvis with intravenous contrast [facility] Work Phone: Start: 03-11-2022 X-ray of eye for foreign body [facility] Work Phone: Start: 03-11-2022 MRI of cervical spine V [facility] Work Phone: Start: 02-21-2022 X-ray of cervical spine [facility] Work Phone: Start: 11-22-2021 CT cervical spine wi thout contrast [facility] Work Phone: Start: 11-22-2021 Plain chest X-ray [facility] Work Phone: Lactoferrin measurement [facility] Work Phone: Plan of Treatment Date Care Activity Detail Author Start: 2031 Zoster Vaccines (1 of 2) Zoste r Vaccines (1 of 2) [facility] Start: 05-27-2026 Diabetes mellitus screening Diabetes Screening [facility] Start: 07-17-2025 Influenza vaccination [facility] Start: 11-03-2024 End: 11-03-2024 Patient encounter procedure 11/03/2024 10:30 AM EST Office Visit [facility] Orthopedic and Sports Medicine [address] [place] [address] Polly Aviles DO [address] [place] [phone] [facility] Start: 07-17-2024 COVID-19 Vaccine (2022-24 season) COVID-19 Vaccine ( season) [facility] Start: 07-17-2024 COVID-19 Vaccine ( season) COVID-19 Vaccine ( season) [facility] Start: 07-17-2024 Influenza vaccination Influenza Vacc ine (#1) [facility] Start: 05-17-2024 End: 05-17-2024 Patient encounter procedure 05/17/2024 10:15 AM EDT Office Visit [facility] Orthopedic and [facility] Medicine [address] [place] [address] [place] [phone] Polly Aviles DO [address] [place] [phone] [facility] Orthopedic [facility] Start: 03-08-2024 Patient discharge [facility] Start: 01-11-2024 Measurement of substance [facility] Start: 12-21-2023 [facility] Start: 11-26-2023 End: 11-26-2023 Patient encounter procedure 11/26/2023 10:30 AM EST Office Visit [facility] Orthopedic and [address] [place] [phone] Polly Aviles DO [address] [place] [phone] [facility] Orthopedic [facility] Start: 09-29-2023 Anes esoph thyrd lar ynx trach & lymph neck 1yr ANESTH NECK ORGAN 1YR/> [facility] Start: 09-29-2023 Laryngoscopy w/biops y microscope/telescope LARYNGOSCOPY W/BX & OP SCOPE [facility] Start: 09-29-2023 Patient discharge [facility] Start: 09-01-2023 Patient referral [facility] Work Phone: Start: 08-13-2023 End: 08-13-2023 Patient encounter procedure 08/13/2023 10:00 AM EDT Office Visit [address] [place] [address] Polly Aviles, [place] [address] [facility]opedic [facility] Start: 07-17-2023 Influenza vaccination S [facility] Start: 09-11-2022 Colonoscopy w/biopsy single/multiple COLONOSCOPY AND BIOPSY [facility] Start: 09-11-2022 Egd transoral biopsy single/multiple EGD BIOPSY SINGLE/MULTIPLE [facility] Start: 09-11-2022 Patient discharge [facility] Start: 07-17-2022 Influenza vaccination C [facility] Start: 07-15-2022 Nfct agnt genotyp nu cleic acid hepatitis c virus GENOTYPE DNA/RNA HEP C [facility] Work Phone: Start: 03-19-2022 Patient referral [facility] Work Phone: Start: 11-16-2021 DEPRESSION ASSESSMENT DEPRESSION ASS ESSMENT [facility] Start: 2016 LIPID SCREEN LIPID SCREEN [facility] Start: 2003 DTaP/Tdap/Td Vaccine s (1 - Tdap) DTaP/Tdap/Td Vaccines (1 - Tdap) [facility] Start: 2000 DTaP/Tdap/Td Vaccine s (1 - Tdap) DTaP/Tdap/Td Vaccines (1 - Tdap) [facility] Start: 2000 Hepatitis A Vaccines (1 of 2 - Risk 2-dose series) Hepatitis A Vaccines (1 of 2 - Risk 2-dose series) [facility] Start: 2000 Hepatitis B Vaccines (1 of 3 - 19+ 3-dose series) Hepatitis B Vaccines (1 of 3 - 19+ 3-dose series) [facility] Start: 2000 Pneumococcal Vaccine : Ped or At-Risk (1 of 2 - PCV) Pneumococcal Vaccine: Ped or At-Risk (1 of 2 - PCV) [facility] Start: 2000 Urine microalbumin profile DTAP,TDAP ,TD (1 - Tdap) [facility] Start: 1999 HEPATITIS C SCREENING HEPATITIS C [facility] Start: 1999 Hepatitis C screening Hepatitis C Sc reening [facility] Start: 1999 HIV SCREENING HIV SCREENING [facility] Start: 1996 HIV screening HIV Screening [facility] Start: 1994 Varicella vaccination Varicell a Vaccines (1 of 2 - 13+ 2-dose series) [facility] Start: 1993 Adult depression scr eening assessment [facility] Start: 1987 PNEUMOCOCCAL (1 - PCV) PNEUMOCOCCAL (1 - PCV) [facility] Start: 1987 Pneumococcal Vaccine : Ped or At-Risk (1 - PCV) Pneumococcal Vaccine: Ped or At-Risk (1 - PCV) [facility] Start: 1987 Pneumococcal Vaccine : Ped or At-Risk (1 of 2 - PCV) Pneumococcal Vaccine: Ped or At-Risk (1 of 2 - PCV) [facility] Start: 1987 Pneumococcal Vaccine : Pediatrics (0 to 5 Years) and At-Risk Patients (6 to 64 Years) (1 - PCV) Pneumococcal Vaccine: Pediatrics (0 to 5 Years) and At-Risk Patients (6 to 64 Years) (1 - PCV) [facility] Start: 1986 COVID-19 Vaccine (#1) COVID-19 Vacci ne (#1) [facility] Start: 1986 COVID-19 VACCINE (1) COVID-19 VACCIN E (1) [facility] Start: 1984 History and physical examination, annual for health maintenance Wellness Visit [facility] Start: 1982 MMR Vaccines (1 of 1 - Standard series) MMR Vaccines (1 of 1 - Standard series) [facility] Start: 1982 Varicella vaccination Varicell a Vaccines (1 of 2 - 2-dose childhood series) [facility] Start: 1981 COVID-19 VACCINE (#1) COVID-19 VACCI NE (#1) [facility] Start: 1981 HEPATITIS B (1 of 3 - 3-dose series) HEPATITIS B (1 of 3 - 3-dose series) [facility] Start: 1981 Hepatitis B Vaccines (1 of 3 - 3-dose series) Hepatitis B Vaccines (1 of 3 - 3-dose series) [facility] Start: 1981 HIV screening HIV Screening [facility] Start: 1981 Lipid panel Lipid Panel [facility] Start: 1981 Tetanus vaccination Tetanus: Every 1 [address] [facility] Start: 1981 Yearly Adult Physical Yearly Adult P [facility] End: 07-30-2024 Anti-cyclic citrullinated peptide antibody level [facility] Antibody Lab Add-On Polyarthralgia 1 Occurrences starting 07/30/2023 until 07/30/[address] [facility] Comment on above: 1 Occurrences starti ng 07/30/2023 until 07/30/2024 Anti-cyclic citrulli nated peptide antibody level [facility] Antibody Lab Add-On Polyarthralgia 07/30/2023 9:57 AM EDT [facility] End: 07-30-2024 Antibody to SS-A measurement Sjogrens Antibodies (Ro52,Ro60,SSB) Lab Routine Sjogren's syndrome, with unspecified organ involvement (HCC) Polyarthralgia 1 Occurrences starting 07/30/2023 until 07/30/[address] [facility] Work Phone: Comment on above: 1 Occurrences starti ng 07/30/2023 until 07/30/2024 Antibody to SS-A measurement Sjogrens Antibodies (Ro52,Ro60,SSB) Lab Routine Sjogren's syndrome, with unspecified organ involvement (HCC) Polyarthralgia 07/30/2023 9:57 AM EDT [facility] Colonoscopy [facility] Cortisol [Mass/volum e] in Serum or Plasma [facility] End: 05-27-2025 Drug Screen, Urine Drug Screen, Urine Lab STAT STAT (Lab) for 1 Occurrences starting 05/27/2025 until 05/27/2025 [facility] Work Phone: Comment on above: STAT (Lab) for 1 Occ urrences starting 05/27/2025 until 05/27/2025 End: 05-27-2025 Extra Urine Nickerson Tube Extra Urine [facility] T[facility] Lab Timed Once for 1 Occurrences starting 05/27/2025 until 05/27/2025 [facility] Work Phone: Comment on above: Once for 1 Occurrenc es starting 05/27/2025 until 05/27/2025 Follitropin and Lutr opin panel [Units/volume] - Serum or Plasma [facility] End: 09-11-2024 Hepatitis C viral load Hepatitis C Virus PCR, Blood, Quantitative Lab Routine Polyarthralgia Encounter for screening for other viral diseases 1 Occurrences starting 09/11/2023 until 09/11/[address] [facility] Work Phone: Comment on above: 1 Occurrences starti ng 09/11/2023 until 09/11/2024 Hepatitis C viral load Hepatitis C Virus PCR, Blood, Quantitative Lab Routine Polyarthralgia 09/11/2023 11:15 AM EDT [facility] Influenza virus A an d B RNA and SARS-CoV-2 (COVID-19) N gene panel - Respiratory specimen by MEME with probe detection COVID WITH FLUA+B, ROUTINE Microbiology Routine Viral illness 03/04/2022 11:38 AM EDT [facility] Work Phone: Inhalation bronchial challenge testing [facility] Lactoferrin [Presenc e] in Stool by Immunoassay [facility] Work Phone: End: 08-03-2025 MR Hand - right WO and W contrast IV MR Hand Right With And Without Contrast Imaging Routine Polyarthralgia 1 Occurrences starting 08/03/2024 until 08/03/[address] [facility] Work Phone: Comment on above: 1 Occurrences starti ng 08/03/2024 until 08/03/2025 Patient Education [facility] Work Phone: Patient referral [facility] Work Phone: Procedure [facility] Prolactin measurement [facility] Prostate specific an tigen measurement [facility] Protein measurement [facility] Work Phone: End: 07-30-2024 Rheumatoid factor, quantitative Rheumatoid factor Lab Add-On Polyarthralgia 1 Occurrences starting 07/30/2023 until 07/30/[address] [facility] Comment on above: 1 Occurrences starti ng 07/30/2023 until 07/30/2024 Tobacco use cessatio n education [facility] Tobacco use cessatio n education [facility] Tobacco use cessatio n education [facility] Tobacco use cessatio n education [facility] End: 05-27-2025 Urinalysis complete W Reflex Culture panel - Urine [facility] Work Phone: Comment on above: Once (Lab) for 1 Occ urrences starting 05/27/2025 until 05/27/2025 [facility] End: 07-30-2024 Videofluoroscopy swallow XR Modifed Barium Swallow Imaging Routine Sjogren's syndrome, with unspecified organ involvement (HCC) Dysphagia, unspecified type 1 Occurrences starting 07/30/2023 until 07/30/[address] [facility] Comment on above: 1 Occurrences starti ng 07/30/2023 until 07/30/2024 [facility] Payers Date Payer Category Payer Legal Liability / Liability Insurance ACCIDENT RELATED NON-MEDICARE [id number] 2025 Medicare [id number] 2024 Self-pay [id number] 2022 Medicaid [id number] 2022 [email or web address]/PREF/HMO/PPO [id number] 2022 [employer] [place] [employer] [facility] [id number] 2022 Unknown 2022 Unknown [id number] 2021 Medicaid [employer] MEDICAID [id number] 2021-Present [phone] [address] [place] [address] Medicaid [id number] 2021 Medicaid [id number] 2021 Unknown [id number] 1981 Unknown [id number] 2.16.840.1.434413.3.579.2 .479 1981 Unknown [id number] 2.16840.1.697148.3.579.2 .903 1981 Unknown [id number] 2.840.1.531667.3.579.2 .903 1981 Unknown [id number] 2.16.840.1.327356.3.579.2 .903 1981 Unknown [id number] 2.16.840.1.280634.3.579.2 .1981 Unknown [id number] 2.16.840.1.386738.3.579.2 .1981 Unknown [id number] 2.16.840.1.489661.3.579.2 .1981 Unknown [id number] 2.16.840.1.999192.3.579.2 .1981 Unknown [id number] 2.840.1.169058.3.579.2 .1981 Unknown [id number] 2..840.1.750236.3.579.2 .1981 Unknown [id number] 2.840.1.742081.3.579.2 .1981 Unknown [id number] 2.840.1.514967.3.579.2 .1981 Unknown [id number] 2.840.1.071453.3.579.2 .1981 Unknown [id number] 2.840.1.660954.3.579.2 .1243 Unknown [id number] 2.840.1.528816.3.579.2 .462 Unknown [id number] 2.16840.1.154338.3.579.2 .462 Unknown [id number] 2.16840.1.443888.3.579.2 .462 Unknown [id number] 2.16.840.1.864246.3.579.2 .462 Unknown [id number] 2.16840.1.188113.3.579.2 .462 Unknown [id number] 2.16840.1.098891.3.579.2 .462 Unknown [id number] 2.16.840.1.599337.3.579.2 .462 Unknown [id number] 2.16.840.1.255930.3.579.2 .462 Unknown [id number] 2.16.840.1.698671.3.579.2 .462 Unknown [id number] 2.16.840.1.330380.3.579.2 .462 Unknown [id number] 2.16.840.1.350127.3.579.2 .462 Unknown [id number] 2.16.840.1.228107.3.579.2 .462 Unknown [id number] 2.16.840.1.060996.3.579.2 .462 Unknown [id number] 2.16.840.1.122556.3.579.2 .462 Unknown [id number] 2.16.840.1.003956.3.579.2 .462 Social History Date Type Detail Facility Start: 11-06-2022 End: 04-04-2025 Tobacco smoking status NHIS Smokes tobacco daily [facility] Work Phone: History of tobacco use Cigarette Smoker [facility] Work Phone: Start: 04-12-2018 End: 03-04-2022 Alcohol intake Current non-drinker of alcohol (finding) [facility] Start: 05-29-2015 History SDOH Alcohol Comment past alcohol use [facility] Start: 1980 Sex Assigned At Not on file [facility] Start: 02-22-2022 End: 03-04-2022 Exposure to SARS-CoV-2 (event) Not sure [facility] Start: 02-21-2022 End: 12-21-2023 Tobacco smoking status MDIS Unknown if ever smoked [facility] Start: 03-21-2021 Occasional [facility] Start: 03-21-2021 Cocaine;Heroin ;Marijuan a [facility] Start: 03-21-2021 Cigarettes [facility] Start: 1980 Sex Assigned At Male [facility] Start: 11-06-2022 End: 09-11-2023 Cigarettes smoked current (pack per day) - Reported 1 [facility] Start: 11-06-2022 End: 07-30-2023 Tobacco use and exposure Smokeless tobacco non-user [facility] Start: 07-30-2023 End: 09-11-2023 Gender identity Not on file [facility] Start: 01-26-2025 Sex Male (finding) [facility] Medical Equipment Procedure Code Equipment Code Equipment Origin al Text Equipment Identifier Dates Bard 3dmax Mesh [id number] Start: 07-19-2019 Comment on above: Description: Bard 3DMax Mesh Knitted Keshav ypropylene pre-formed mesh Large Right 4.3 x 6.3 (10.8cm x 16.0cm) Mesh 3dmax Large Polypropylene 6x4in Surgical Nonabsorbable Patch Preform - [id number] Start: 02-14-2021 Comment on above: Description: 10.8 cm x 16.0 cm Goals Date Patient Goal Desired Activity /State Functional Status Date Assessment Result Facility 05-27-2025 [facility] s everity rating scale screener - recent [C-SSRS] [facility] Work Phone: Mental Status Date Assessment Result Facility 03-08-2024 Cognitive function Voice/Name [facility] Work Phone: 09-29-2023 Cognitive function Level Of Cons ciousness Awake;Alert;Appropriate [facility] Work Phone: 09-29-2023 Cognitive function Voice/Name [facility] Work Phone: 09-11-2022 Cognitive function Level Of Cons ciousness Awake;Drowsy [facility] Work Phone: 09-11-2022 Cognitive function Patient Orien tation Person;Place;Time [facility] Work Phone: 11-22-2021 Cognitive function Level Of Cons ciousness Awake;Alert;Appropriate;Follow s Commands [facility] Work Phone: Clinical Notes 03-04-2022 to 04-19-2025 Polly Aviles, DO - 04/19/2025 11:31 AM EDTJanettLilibeth ortizVALERI - 04/19/2025 11:21 AM EDT Note Date & Type Note Facility 04-19-2025 Note RHEUMATOLOGY FOLLOW- UP VISIT Patient Name: Jose Mcnamara : 1980 Medical Record: [id number] PCP: Josselyn Galindo MD Referring provider: CHIEF COMPLAINT Abdominal pain, swallowing difficulties, arthralgias ASSESSMENT AND PLAN Jose Mcnamara is a 44 y.o. male who is being seen for evaluation of positive SSB and arthralgias. History of sicca symptoms Positive SSB x1 with repeat negative At this point, I have an overall low suspicion that patient has underlying Sjogren's. He had a positive SSB once but repeat testing was normal and he had prior trauma to the neck which could be related to his swallowing difficulties. We had discussed previously patient wanted to pursue further diagnostics for Sjogren's with a salivary gland biopsy, however, I am not sure that this is necessary at this point. Crohn's disease Celiac His GI symptoms have improved and he continues to follow with GI. Polyarthralgia We obtained an MRI of the right hand with and without IV contrast to evaluate for underlying synovitis and none was noted. Discussed with patient that his point he does not have evidence of a clear underlying connective tissue disease. Crohn's disease can cause an inflammatory arthropathy, but MRI was not suggestive of this. Discussed with patient that he can return to rheumatology on an as-needed basis. He is in agreement with this plan. Please do not hesitate to contact me with any questions or concerns. Polly Aviles DO [facility] Rheumatology [facility] [place] [address] O: [phone] F: [phone] The above recommendations were discussed with the patient who understands and agrees with the plan. Portions of this note were copied forward from the patient's last clinic visit.? I have reviewed and updated the history, physical exam, data, assessment and plan of the note so that it reflects the evaluation and management of the patient on 04/19/2025. Portions of this note were created with [employer]. Every effort was made to proofread, but sound-alike errors may occasionally occur. Please contact me for any clarification of note contents. My ongoing relationship with Jose Mcnamara requires continued responsibility and cognitive effort of being the focal point for all services related to chronic condition(s). HISTORY OF PRESENT ILLNESS Jose Mcnamara is a 44 y.o. male who is being seen in follow-up for positive SSB and arthralgias Interval history Nursing intake form reviewed. Here for follow-up today. He is doing okay overall. His stomach is doing a lot better than it was previously. Notes that he has driving restrictions due to seizure history. Prior and initial history Patient visit (07/30/2023): Referred by GI for evaluation of positive SSB and concern for Sjogren's. Abdominal pain was worse symptoms. Occasional joint pain and some swelling/pain in hands. Previous injury to his elbow. Per discussion with Dr. Guevara's office (GI) underlying diagnosis of Crohn's is somewhat unclear. Findings more consistent with celiac disease given that course is somewhat atypical for Crohn's including constipation. Serologies Initial referral serologies: SSA negative. SSB elevated to 1.7 (RR 0-0.9). Remaining comprehensive panel normal. Studies [facility] with negative RF/CCP and repeat Sjogren [...] scarring. Prior rheumatology medications Azathioprine-prescribed by Dr. Guevara, but patient reports this was stopped. 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 Normal appearance. HENT: Head normocephalic?and atraumatic. Eyes: No discharge.??? Pulmonary: Pulmonary effort is normal. No?respiratory distress. Skin: Warm?and dry. Neurological: Alert. Psychiatric: Conversant. Alert. PAST MEDICAL AND SURGICAL HISTORY Past Medical History: Diagnosis Date Abdominal pain Alcohol abuse Anxiety Arthritis Back pain Bipolar disorder (HCC) Celiac disease Depression Drug abuse (HCC) Enlarged heart Gastric reflux GERD (gastroesophageal reflux disease) Hearing problem Hepatitis Migraine Ulcer (traumatic) of oral mucosa Past Surgical History: Procedure Laterality Date HERNIA REPAIR NECK SURGERY (more content not included)... [facility] 04-19-2025 History of Present illness Narrative Images from the original note were not included. RHEUMATOLOGY FOLLOW-UP VISIT Patient Name: Jose Mcnmaara : 1980 Medical Record: [id number] PCP: Josselyn Galindo MD Referring provider: CHIEF COMPLAINT Abdominal pain, swallowing difficulties, arthralgias ASSESSMENT AND PLAN Jose Mcnamara is a 44 y.o. male who is being seen for evaluation of positive SSB and arthralgias. History of sicca symptoms Positive SSB x1 with repeat negative At this point, I have an overall low suspicion that patient has underlying Sjogren's. He had a positive SSB once but repeat testing was normal and he had prior trauma to the neck which could be related to his swallowing difficulties. We had discussed previously patient wanted to pursue further diagnostics for Sjogren's with a salivary gland biopsy, however, I am not sure that this is necessary at this point. Crohn's disease Celiac His GI symptoms have improved and he continues to follow with GI. Polyarthralgia We obtained an MRI of the right hand with and without IV contrast to evaluate for underlying synovitis and none was noted. Discussed with patient that his point he does not have evidence of a clear underlying connective tissue disease. Crohn's disease can cause an inflammatory arthropathy, but MRI was not suggestive of this. Discussed with patient that he can return to rheumatology on an as-needed basis. He is in agreement with this plan. Please do not hesitate to contact me with any questions or concerns. Polly Aviles DO [facility] Rheumatology [address] [place] [address] O: [phone] F: [phone] The above recommendations were discussed with the patient who understands and agrees with the plan. Portions of this note were copied forward from the patient's last clinic visit.? I have reviewed and updated the history, physical exam, data, assessment and plan of the note so that it reflects the evaluation and management of the patient on 04/19/2025. Portions of this note were created with [employer]. Every effort was made to proofread, but sound-alike errors may occasionally occur. Please contact me for any clarification of note contents. My ongoing relationship with Jose Mcnamara requires continued responsibility and cognitive effort of being the focal point for all services related to chronic condition(s). HISTORY OF PRESENT ILLNESS Jose Mcnamara is a 44 y.o. male who is being seen in follow-up for positive SSB and arthralgias Interval history Nursing intake form reviewed. Here for follow-up today. He is doing okay overall. His stomach is doing a lot better than it was previously. Notes that he has driving restrictions due to seizure history. Prior and initial history Patient visit (07/30/2023): Referred by GI for evaluation of positive SSB and concern for Sjogren's. Abdominal pain was worse symptoms. Occasional joint pain and some swelling/pain in hands. Previous injury to his elbow. Per discussion with Dr. Guevara's office (GI) underlying diagnosis of Crohn's is somewhat unclear. Findings more consistent with celiac disease given that course is somewhat atypical for Crohn's including constipation. Serologies Initial referral serologies: SSA negative. SSB elevated to 1.7 (RR 0-0.9). Remaining comprehensive panel normal. Studies [facility] with negative RF/CCP and repeat Sjogren [...] scarring. Prior rheumatology medications Azathioprine-prescribed by Dr. Guevara, but patient reports this was stopped. 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 Normal appearance. HENT: Head normocephalic?and atraumatic. Eyes: No discharge.??? Pulmonary: Pulmonary effort is normal. No?respiratory distress. Skin: Warm?and dry. Neurological: Alert. Psychiatric: Conversant. Alert. PAST MEDICAL AND SURGICAL HISTORY Past Medical History: Diagnosis Date Abdominal pain Alcohol abuse Anxiety Arthritis Back pain Bipolar disorder (HCC) Celiac disease Depression Drug abuse (HCC) Enlarged heart Gastric reflux GERD (gastroesophageal reflux disease) Hearing problem Hepatitis Migraine Ulcer (traumatic) of oral mucosa Past Surgical History: Procedure Laterality Date HERNIA REPAIR NECK SURGERY RHEUMATOLOGY FOLLOW-UP VISIT INTAKE: Have you had any new illnesses, infections, or hospitalizations? ? [x]Yes []No If yes, please specify: Just the same stuff with stomach Are you having any side effects from your rheumatology medications? ? [x]Yes ? [x]No ? []N/A If yes, please specify: Are you having morning stiffness? ? [x]Yes []No How many minutes does it last? 5 min or so Are you having any joint swelling? ? [x]Yes []No If yes, what joints? He will show you Global Assessment: Considering all of the ways that your disease affects you, how are you doing (0 = best ; 10 = worst)? 4.0 No show/cancellation policy provided to patient: []Yes []Patient declined [x]Patient previously received and declined additional copy documented in this encounter [facility] 02-17-2025 Evaluation note Diagnosis Onset Date Resolution Abdominal pain chronic February 17, 2025 9:46am Celiac disease chronic February 17, 2025 9:46am Constipation chronic February 17, 025 9:46am Crohn disease chronic February 17, 2025 9:46am History of hepatitis C chronic Ap 2024 9:46am Sjogren syndrome with gastrointestinal involvement suspected February 17, 2025 9:46am Hepatitis C inactive February 17 9:46am Erectile dysfunction acute April 04, 2025 9:53am Low testosterone in male acute April 04, 2025 9:53am Urinary hesitancy chronic March 9:53am [facility] [employer] Work Phone: 1(333) 135-479002-11-2025 Chief complaint+Reason for visit Narrative * Chief Complaint Admit Date wants podiatry referral December 27, 2 025 10:21am 3 M FU December 28, 2024 10:42am INT LABS January 13, 2025 7:44am Abdominal pain February 17, 2025 9:46 am Low Testosterone April 04, 2025 9:53a m Reason for Visit Admit Date DDD (degenerative disc disease), cervica l December 27, 2024 10:21am Seizure-like activity December 27 10:21am Bipolar disorder December 27, 2024 10:21am Celiac disease December 27, 2024 10:21am COPD (chronic obstructive pulmonary dise ase) December 27, 2024 10:21am Crohn disease December 27, 2024 10:21am Sjogren syndrome with gastrointestinal i nvolvement December 27, 2024 10:21am High glucose level December 27, 2024 10:21am Screening for cardiovascular condition F ebruary 2024 10:21am Substance abuse December 27, 2024 10:21am Influenza vaccination declined December 27, 2024 10:21am Chronic abdominal pain December 27 10:21am HSV (herpes simplex virus) anogenital in fection December 27, 2024 10:21am Reduced libido December 27, 2024 10:21am Smoker December 27, 2024 10:21am Abdominal pain December 28, 2024 10:42am Celiac disease December 28, 2024 10:42am Constipation December 28, 2024 10:42am Crohn disease December 28, 2024 10:42am History of hepatitis C December 28 10:42am Sjogren syndrome with gastrointestinal i nvolvement December 28, 2024 10:42am Hepatitis C December 28, 2024 10:42am Abdominal pain February 17, 2025 9:46 am Celiac disease February 17, 2025 9:46 am Constipation February 17, 2025 9:46 am Crohn disease February 17, 2025 9:46 am History of hepatitis C February 17, 2025 9 :46am Sjogren syndrome with gastrointestinal i nvolvement February 17, 2025 9:46am Hepatitis C February 17, 2025 9:46 am Low testosterone in male April 04, 2025 9:53am [facility] Work Phone: 1(439) 349-236102-11-2025 Chief complaint+Reason for visit Narrative * Chief Complaint Admit Date wants podiatry referral December 27 025 10:21am 3 M FU December 28, 2024 10:42am INT LABS January 13, 2025 7:44am Abdominal pain February 17, 2025 9:46 am Low Testosterone April 04, 2025 9:53a m Reason for Visit Admit Date DDD (degenerative disc disease), cervica l December 27, 2024 10:21am Seizure-like activity December 27 10:21am Bipolar disorder December 27, 2024 10:21am Celiac disease December 27, 2024 10:21am COPD (chronic obstructive pulmonary dise ase) December 27, 2024 10:21am Crohn disease December 27, 2024 10:21am Sjogren syndrome with gastrointestinal i nvolvement December 27, 2024 10:21am High glucose level December 27, 2024 10:21am Screening for cardiovascular condition F ebruary 2024 10:21am Substance abuse December 27, 2024 10:21am Influenza vaccination declined December 27, 2024 10:21am Chronic abdominal pain December 27 10:21am HSV (herpes simplex virus) anogenital in fection December 27, 2024 10:21am Reduced libido December 27, 2024 10:21am Smoker December 27, 2024 10:21am Abdominal pain December 28, 2024 10:42am Celiac disease December 28, 2024 10:42am Constipation December 28, 2024 10:42am Crohn disease December 28, 2024 10:42am History of hepatitis C December 28 10:42am Sjogren syndrome with gastrointestinal i nvolvement December 28, 2024 10:42am Hepatitis C December 28, 2024 10:42am Abdominal pain February 17, 2025 9:46 am Celiac disease February 17, 2025 9:46 am Constipation February 17, 2025 9:46 am Crohn disease February 17, 2025 9:46 am History of hepatitis C February 17, 2025 9 :46am Sjogren syndrome with gastrointestinal i nvolvement February 17, 2025 9:46am Hepatitis C February 17, 2025 9:46 am Erectile dysfunction April 04, 2025 9:53 am Low testosterone in male April 04, 2025 9:53am Urinary hesitancy April 04, 2025 9:53a [facility] Work Phone: 1(546) 158-492302-11-2025 Evaluation note* Diagnosis Onset Date Resolution Status Admit Date DDD (degenerative disc disease), cervical acute December 10:21am Seizure-like activity acute Dec 10:21am Bipolar disorder chronic December 27, 2024 10:21am Celiac disease chronic December 172024 10:21am COPD (chronic obstructive pulmonary disease) chronic December 10:21am Crohn disease chronic December 272024 10:21am Sjogren syndrome with gastrointestinal involvement suspected Dec 10:21am High glucose level noneactive 2024 10:21am Screening for cardiovascular condition noneactive December 27 10:21am Substance abuse noneactive December 27, 2024 10:21am Influenza vaccination declined nonea ctive December 27, 2024 10:21am Chronic abdominal pain noneactive [facility]2024 10:21am HSV (herpes simplex virus) anogenital infection noneactive December 272024 10:21am Reduced libido noneactive December 172024 10:21am Smoker noneactive December 27, 2024 10:21am Abdominal pain chronic December 172024 10:42am Celiac disease chronic December 172024 10:42am Constipation chronic December 10:42am Crohn disease chronic December 282024 10:42am History of hepatitis C chronic Fe 2024 10:42am Sjogren syndrome with gastrointestinal involvement suspected Dec 10:42am Hepatitis C inactive December 10:42am Abdominal pain chronic February 17, 2025 9:46am Celiac disease chronic February 17, 2025 9:46am Constipation chronic February 17, 2 025 9:46am Crohn disease chronic February 17, 2025 9:46am History of hepatitis C chronic Ap 2024 9:46am Sjogren syndrome with gastrointestinal involvement suspected Feb 9:46am Hepatitis C inactive February 17 9:46am Low testosterone in male acute April 04, 2025 9:53am [facility] Work Phone: 1(972) 902-795102-11-2025 Evaluation note* Diagnosis Onset Date Resolution Status Admit Date DDD (degenerative disc disease), cervical acute December 10:21am Seizure-like activity acute Dec 10:21am Bipolar disorder chronic December 27, 2024 10:21am Celiac disease chronic December 172024 10:21am COPD (chronic obstructive pulmonary disease) chronic December 10:21am Crohn disease chronic December 272024 10:21am Sjogren syndrome with gastrointestinal involvement suspected Dec 10:21am High glucose level noneactive 2024 10:21am Screening for cardiovascular condition noneactive December 27 025 10:21am Substance abuse noneactive December 27, 2024 10:21am Influenza vaccination declined nonea ctive December 27, 2024 10:21am Chronic abdominal pain noneactive [facility] [place]2024 10:21am HSV (herpes simplex virus) anogenital infection noneactive December 272024 10:21am Reduced libido noneactive December 172024 10:21am Smoker noneactive December 27, 2024 10:21am Abdominal pain chronic December 172024 10:42am Celiac disease chronic December 172024 10:42am Constipation chronic December 10:42am Crohn disease chronic December 282024 10:42am History of hepatitis C chronic Fe 2024 10:42am Sjogren syndrome with gastrointestinal involvement suspected Fe2024 10:42am Hepatitis C inactive December 10:42am Abdominal pain chronic February 17, 2025 9:46am Celiac disease chronic February 17, 2025 9:46am Constipation chronic February 17, 2 025 9:46am Crohn disease chronic February 17, 2025 9:46am History of hepatitis C chronic Ap 2024 9:46am Sjogren syndrome with gastrointestinal involvement suspected Feb 9:46am Hepatitis C inactive February 17 9:46am Erectile dysfunction acute April 04, 2025 9:53am Low testosterone in male acute April 04, 2025 9:53am Urinary hesitancy chronic March 9:53am [facility] Work Phone: 1(477) 552-361511-19-2024 Chief complaint+Reason for visit Narrative * Chief Complaint Admit Date 4 M FU October 04, 2024 10:22am wants podiatry referral December 27, 025 10:21am 3 M FU December 28, 2024 10:42am INT LABS January 13, 2025 7:44am Reason for Visit Admit Date Abdominal pain October 04, 2024 10:22am Celiac disease October 04, 2024 10:22am Constipation October 04, 2024 10:22am Crohn disease October 04, 2024 10:22am History of hepatitis C October 04 10:22am Sjogren syndrome with gastrointestinal i nvolvement October 04, 2024 10:22am Hepatitis C October 04, 2024 10:22am DDD (degenerative disc disease), cervica l December 27, 2024 10:21am Seizure-like activity December 27 10:21am Bipolar disorder December 27, 2024 10:21am Celiac disease December 27, 2024 10:21am COPD (chronic obstructive pulmonary dise ase) December 27, 2024 10:21am Crohn disease December 27, 2024 10:21am Sjogren syndrome with gastrointestinal i nvolvement December 27, 2024 10:21am High glucose level December 27, 2024 10:21am Screening for cardiovascular condition F ebruary 2024 10:21am Substance abuse December 27, 2024 10:21am Influenza vaccination declined December 27, 2024 10:21am Chronic abdominal pain December 27 10:21am HSV (herpes simplex virus) anogenital in fection December 27, 2024 10:21am Reduced libido December 27, 2024 10:21am Smoker December 27, 2024 10:21am Abdominal pain December 28, 2024 10:42am Celiac disease December 28, 2024 10:42am Constipation December 28, 2024 10:42am Crohn disease December 28, 2024 10:42am History of hepatitis C December 28 10:42am Sjogren syndrome with gastrointestinal i nvolvement December 28, 2024 10:42am Hepatitis C December 28, 2024 10:42am [facility] Work Phone: 1([phone]) 186-437611-19-2024 Evaluation note* Diagnosis Onset Date Resolution Status Admit Date Abdominal pain chronic September 162023 10:22am Celiac disease chronic September 162023 10:22am Constipation chronic September 10:22am Crohn disease chronic October 042023 10:22am History of hepatitis C chronic No vember 2023 10:22am Sjogren syndrome with gastrointestinal involvement suspected Sep 10:22am Hepatitis C inactive September 10:22am DDD (degenerative disc disease), cervical acute December 10:21am Seizure-like activity acute b [facility] 2024 10:21am Bipolar disorder chronic December 27, 2024 10:21am Celiac disease chronic December 172024 10:21am COPD (chronic obstructive pulmonary disease) chronic December 10:21am Crohn disease chronic December 272024 10:21am Sjogren syndrome with gastrointestinal involvement suspected Feb [facility] 2024 10:21am High glucose level noneactive 2024 10:21am Screening for cardiovascular condition noneactive December 27 10:21am Substance abuse noneactive December 27, 2024 10:21am Influenza vaccination declined nonea ctive December 27, 2024 10:21am Chronic abdominal pain noneactive [facility] 2024 10:21am HSV (herpes simplex virus) anogenital infection noneactive December 272024 10:21am Reduced libido noneactive December 172024 10:21am Smoker noneactive December 27, 2024 10:21am Abdominal pain chronic December 172024 10:42am Celiac disease chronic December 172024 10:42am Constipation chronic December 10:42am Crohn disease chronic December 282024 10:42am History of hepatitis C chronic Fe [facility] 2024 10:42am Sjogren syndrome with gastrointestinal involvement suspected Feb [facility] 2024 10:42am Hepatitis C inactive December 10:42am [facility] Work Phone: 1(786) 505-948709-18-2024 Instructions* Patient Instructions* Polly Aviles DO - 08/03/2024 10:52 AM EDT It was nice to see you today! Can try refresh or systane drops for dry eye Many of the medications we prescribe require routine safety labs or eye exams. Refills will be provided after these are obtained. Please allow up to 3 business days for refills to be provided. If you have an urgent question or concern, please call our office at [phone] - option 2 to leave a message for the nurse. If you have a non-urgent concern, please call or send a [employer] message. Please allow up to 3 business days for a [employer] message response. Sincerely, Polly Aviles DO Rheumatology documented in this [id number] NoteRHEUMATOLOGY FOLLOW-UP VISIT Patient Name: Jose Mcnamara : 1980 Medical Record: [id number] PCP: Josselyn Galindo MD Referring provider: CHIEF COMPLAINT Abdominal pain, swallowing difficulties, arthralgias ASSESSMENT AND PLAN Jose Mcnamara is a 44 y.o. male who is being seen for evaluation of positive SSB and arthralgias. History of sicca symptoms Positive SSB x1 with repeat negative With chronic sicca symptoms, but unclear if patient truly does have Sjogren's as he had a positive SSB once, but repeat testing has been normal. I suspect that his swallowing symptoms may be more related to the prior trauma of his neck. We discussed that we could pursue salivary gland biopsy for confirmative evaluation of Sjogren's, but given that patient has multiple other issues at this time that he is working with other physicians on, he defers. Crohn's disease Celiac Underwent EGD and colonoscopy. There were ulcers noted. 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 He is currently on symptomatic management. Polyarthralgia Continues to be question of whether patient has an underlying inflammatory arthritis. He is starting to develop some flexion of his bilateral hands. He has some tenderness over his right third digit, particularly over the PIP. Given that workup has not been clear of underlying inflammatory arthritis is present, we will pursue MRI of the right hand with and without contrast. Return to clinic in 3 months Please do not hesitate to contact me with any questions or concerns. Polly Aviles DO [facility] Rheumatology [address] [place] [address] O: [phone] F: [phone] The above recommendations were discussed with the patient who understands and agrees with the plan. Portions of this note were copied forward from the patient's last clinic visit.? I have reviewed and updated the history, physical exam, data, assessment and plan of the note so that it reflects the evaluation and management of the patient on 08/03/2024. Portions of this note were created with [employer]. Every effort was made to proofread, but sound-alike errors may occasionally occur. Please contact me for any clarification of note contents. My ongoing relationship with Jose Mcnamara requires continued responsibility and cognitive effort of being the focal point for all services related to chronic condition(s). HISTORY OF PRESENT ILLNESS Jose Mcnamara is a 44 y.o. male who is being seen in follow-up for positive SSB and arthralgias Interval history Nursing intake form reviewed. Here today for follow-up. Had 2 seizures since he last saw me. Seeing a neurologist in [facility]. On briviact. Cannot recall neurologist name. EEG report from June 2024 reviewed with no seizure activity noted during time of testing. Had colonoscopy and EGD with Dr. Guevara since last visit. Found ulcers in stomach. Hands lock and cramp up at times. Having issues with dry eye. Having pain in back. Fell into a table. Having some balance issues. Prior and initial history Patient visit (07/30/2023): Referred by GI for evaluation of positive SSB and concern for Sjogren's. Abdominal pain was worse symptoms. Occasional joint pain and some swelling/pain in hands. Previous injury to his elbow. Per discussion with Dr. Guevara's office (GI) underlying diagnosis of Crohn's is somewhat unclear. Findings more consistent with celiac disease given that course is somewhat atypical for Crohn's including constipation. Serologies Initial referral serologies: SSA negative. SSB elevated to 1.7 (RR 0-0.9). Remaining comprehensive panel normal. Studies [facility] with negative RF/CCP and repeat Sjogren antibodies [...] scarring. Prior rheumatology medications Azathioprine-prescribed by Dr. Guevara, but patient reports this was stopped. 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 Normal appearance. HENT: Head normocephalic?and atraumatic. Wearing glasses. Eyes: No discharge.??? Pulmonary: Pulmonary effort is normal. No?respiratory distress. Skin: Warm?and dry. No rash over exposed surfaces. Neuro (more content not included)...[facility] [id number] History of Present illness Narrative* Polly Aviles, DO - 08/03/2024 10:43 AM EDT Images from the original note were not included. RHEUMATOLOGY FOLLOW-UP VISIT Patient Name: Jose Mcnamara : 1980 Medical Record: [id number] PCP: Josselyn Galindo MD Referring provider: CHIEF COMPLAINT Abdominal pain, swallowing difficulties, arthralgias ASSESSMENT AND PLAN Jose Mcnamara is a 44 y.o. male who is being seen for evaluation of positive SSB and arthralgias. History of sicca symptoms Positive SSB x1 with repeat negative With chronic sicca symptoms, but unclear if patient truly does have Sjogren's as he had a positive SSB once, but repeat testing has been normal. I suspect that his swallowing symptoms may be more related to the prior trauma of his neck. We discussed that we could pursue salivary gland biopsy for confirmative evaluation of Sjogren's, but given that patient has multiple other issues at this time that he is working with other physicians on, he defers. Crohn's disease Celiac Underwent EGD and colonoscopy. There were ulcers noted. 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 He is currently on symptomatic management. Polyarthralgia Continues to be question of whether patient has an underlying inflammatory arthritis. He is starting to develop some flexion of his bilateral hands. He has some tenderness over his right third digit,particularly over the PIP. Given that workup has not been clear of underlying inflammatory arthritis is present, we will pursue MRI of the right hand with and without contrast. Return to clinic in 3 months Please do not hesitate to contact me with any questions or concerns. Polly Aviles, [facility] Rheumatology [address] [address] O: [phone] F: [phone] The above recommendations were discussed with the patient who understands and agrees with the plan. Portions of this note were copied forward from the patient's last clinic visit.? I have reviewed and updated the history, physical exam, data, assessment and plan of the note so that it reflects the evaluation and management of the patient on 08/03/2024. Portions of this note were created with [employer]. Every effort was made to proofread, but sound-alike errors may occasionally occur. Please contact me for any clarification of note contents. My ongoing relationship with Jose Mcnamara requires continued responsibility and cognitive effort of being the focal point for all services related to chronic condition(s). HISTORY OF PRESENT ILLNESS Jose Mcnamara is a 44 y.o. male who is being seen in follow-up for positive SSB and arthralgias Interval history Nursing intake form reviewed. Here today for follow-up. Had 2 seizures since he last saw me. Seeing a neurologist in [facility]. On briviact. Cannot recall neurologist name. EEG report from June 2024 reviewed with no seizure activity noted during time of testing. Had colonoscopy and EGD with Dr. Guevara since last visit. Found ulcers in stomach. Hands lock and cramp up at times. Having issues with dry eye. Having pain in back. Fell into a table. Having some balance issues. Prior and initial history Patient visit (07/30/2023): Referred by GI for evaluation of positive SSB and concern for Sjogren's.Abdominal pain was worse symptoms. Occasional joint pain and some swelling/pain in hands. Previous injury to his elbow. Per discussion with Dr. Guevara's office (GI) underlying diagnosis of Crohn's is somewhat unclear. Findings more consistent with celiac disease given that course is somewhat atypical for Crohn's including constipation. Serologies Initial referral serologies: SSA negative. SSB elevated to 1.7 (RR 0-0.9). Remaining comprehensive panel normal. Studies [facility] with negative RF/CCP and repeat Sjogren antibodies [...] scarring. Prior rheumatology medications Azathioprine-prescribed by Dr. Guevara, but patient reports this was stopped. 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 Normal appearance. HENT: Head normocephalic?and atraumatic. Wearing glasses. Eyes: No discharge.??? Pulmonary: Pulmonary effort is normal. No?respiratory distress. Skin: Warm?and dry. No rash over exposed surfaces. Neurological: Alert. Psychiatric: Conversant. Musculoskeletal: Unable to fully straighten hands with some slight flexion contracture noted bilaterally. Tenderness over right third digit, particularly over PIP. Some DrMile Bruneru fullness. PAST MEDICAL AND SURGICAL HISTORY Past Medical History: Diagnosis Date Abdominal pain Alcohol abuse Anxiety Arthritis Back pain Bipolar disorder (HCC) Celiac disease Depression Drug abuse (HCC) Enlarged heart Gastric reflux GERD (gastroesophageal reflux disease) Hearing problem Hepatitis Migraine Ulcer (traumatic) of oral mucosa Past Surgical History: Procedure Laterality Date HERNIA REPAIR NECK SURGERY MEDICATIONS Reviewed. * Lilibeth Turk LPN - 08/03/2024 10:30 AM EDT RHEUMATOLOGY FOLLOW-UP VISIT INTAKE: Have you had any new illnesses, infections, or hospitalizations? ? [x]Yes []No If yes, please specify: seizure activity Are you having any side effects from your rheumatology medications? ? []Yes ? [x]No ? []N/A If yes, please specify: Are you having morning stiffness? ? [x]Yes []No How many minutes does it last? Are you having any joint swelling? ? [x]Yes []No If yes, what joints? legs very unstable when walking at times Global Assessment: Considering all of the ways that your disease affects you, how are you doing (0 = best ; 10 = worst)? 9.0 No show/cancellation policy provided to patient: []Yes []Patient declined [x]Patient previously received and declined additional copy documented in this [id number] Procedure [facility]04-23-2024 Procedure [facility]04-23-2024 Procedure [facility]04-23-2024 Procedure [facility]01-31-2024 History of Present illness Narrative* Polly Aviles DO - 12/16/2023 10:10 AM EST Images from the original note were not included. RHEUMATOLOGY FOLLOW-UP VISIT Patient Name: Jose Mcnamara : 1980 Medical Record: [id number] PCP: Josselyn Galindo MD Referring provider: CHIEF [...] He also had a swallow study with overallnormal findings asides from some mild esophageal retention. [...] Crohn's disease Celiac I spoke with Dr. Guevara's office several months ago. Underlying diagnosis has been overall unclear.Findings have been most consistent with celiac. There has been some question of Crohn's disease. Patient reporting persistent significant abdominal pain and weight loss. He is going to get a second opinion from another GI in [place] to determine if anything additional can be [...] arthritis, or could be a celiac disease relatedarthritis. In many cases, better control of the [...] me with any questions or concerns. Polly Aviles DO [facility] Rheumatology [address] [place] [address] O: [phone] F: [phone] The above recommendations were discussed with the [...] Portions of this note were created with [employer]. Every effort was made to [...] the doxycycline. Imuran was stopped last visit. Reportsthat he is lost a fair amount of weight. Of note, he weighed 142 pounds at visit with us on and weighs 129 pounds today. Attributes weight [...] evaluation of positive SSB and concern for Sjogren's.Abdominal pain was worse symptoms. Occasional joint pain and some swelling/pain in hands. Previous injury to his elbow. Per discussion with Dr. Guevara's office (GI) underlying diagnosis of Crohn's is somewhat unclear. Findings more consistent with celiac disease given that course is somewhat atypical for Crohn's including constipation. Serologies Initial referral serologies: SSA negative. SSB elevated to 1.7 (RR 0-0.9). Remaining comprehensive panel normal. Studies [facility] with negative RF/CCP and repeat Sjogren [...] scarring. Prior rheumatology medications Azathioprine-prescribed by Dr. Guevara, but patient reports this was recently stopped. 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 * Lilibeth Turk LPN - 12/16/2023 9:44 AM EST RHEUMATOLOGY FOLLOW-UP VISIT INTAKE: Have you had [...] 10 = worst)? 8.5 documented in this [id number] Procedure [facility]10-27-2023 History of Present illness Narrative* Polly Aviles DO - 09/11/2023 10:30 AM EDT Images from the original note were not included. RHEUMATOLOGY FOLLOW-UP VISIT Patient Name: Jose Mcnamara : 1980 Medical Record: [id number] PCP: Josselyn Galindo MD Referring provider: CHIEF [...] side with mild increased linear markings in theposterior aspect of the lingular segment of the [...] request most recent GI note from Dr. Guevara's office. At this point, from a Sjogren's perspective, no specific immunosuppression is indicated. Treatment is typically targeted at organ-specific manifestations. We can consider a salivary biopsy after he completes upcoming surgery to confirm whether or not he truly has Sjogren's. Crohn's disease Celiac I spoke with Dr. Guevara's office in July. Underlying diagnosis of Crohn's has been unclear. Findings in general have been more consistent with celiac disease. Patient also reports that he was recently diagnosed with abdominal migraine and put on several new medications. Imuran was stopped. We will request GI notes for further updates. Polyarthralgia Patient with some synovitis present in scattered PIPs, particularly his right third PIP. Joint painis not his biggest complaint at this time, [...] me with any questions or concerns. Polly Aviles DO [facility] Rheumatology [address] [place] [address] O: [phone] F: [phone] The above recommendations were discussed with the [...] Portions of this note were created with [employer]. Every effort was made to [...] is no longer on Imuran. Saw Dr. Guevara a couple weeks ago. Reports that he [...] evaluation of positive SSB and concern for Sjogren's.Abdominal pain was worse symptoms. Occasional joint pain and some swelling/pain in hands. Previous injury to his elbow. Per discussion with Dr. Guevara's office (GI) underlying diagnosis of Crohn's is somewhat unclear. Findings more consistent with celiac disease given that course is somewhat atypical for Crohn's including constipation. Serologies Initial referral serologies: SSA negative. SSB elevated to 1.7 (RR 0-0.9). Remaining comprehensive panel normal. Studies [facility] with negative RF/CCP and repeat Sjogren antibodies [...] scarring. Prior rheumatology medications Azathioprine-prescribed by Dr. Guevara, but patient reports this was recently stopped. 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 * Lilibeth Turk LPN - 09/11/2023 10:27 AM EDT Rheumatology Follow-up Visit Intake: Since your last [...] you doing (0-10)? 8.0 documented in this [id number] Procedure [facility]09-27-2023 History of Present illness Narrative* Orewiler, Jessica, [employer] FOUL JUDGE - 08/12/2023 11:41 AM EDT Per Castro Dubose, CT's do not require a prior auth. REF# [id number]. documented in this [id number] Instructions* Patient Instructions* Polly Aviles DO - 07/30/2023 9:09 AM EDT Call [phone] to schedule swallow study Labs and xrays today Try sugar free lemon drops and biotene mouth wash for dry mouth/swallowing problems See you back in 2 weeks documented in this [id number] History of Present illness Narrative* Polly Aviles DO - 07/30/2023 8:00 AM EDT Images from the original note were not included. RHEUMATOLOGY NEW PATIENT VISIT Patient Name: Jose Mcnamara : 1980 Medical Record: [id number] PCP: Ynes Keller MD Referring provider: Ynes Keller REASON FOR REFERRAL Positive SSB, arthralgias ASSESSMENT [...] ESR/CRP ordered. Crohn's disease Follows with Dr. Guevara (GI) in [place]. Currently on azathioprine, budesonide, and lubiprostone. Continues with abdominal pain and diarrhea, so concerned that Crohn's may not be controlled. Plan: After above work-up results, will coordinate care with Dr. Guevara to discuss if treatment with an agent that would cover both Crohn's disease and inflammatory arthritis would be of benefit. Return to clinic in 2 weeks Please do not hesitate to contact me with any questions or concerns. Polly Aviles DO [facility] Rheumatology [address] [place] [address] O: [phone] F: [phone] The above recommendations were discussed with the patient who understands and agrees with the plan. Portions of this note were created with [employer]. Every effort was made to [...] ulcers, Crohn's, who was referred by Ynes Keller for evaluation for Sjogren's. Patient here for evaluation today with his significant other. Reports that his biggest concern at this time is persistent abdominal pain. It has been so bad the last couple days he has been unable towork. Reports he has periods of time where it gets better and then worse. 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 Reports that he [...] Per chart/record review: GI notes from Dr. Guevara's office received. HCV antibody reactive but viral load not detected. Has Crohn's disease and is on azathioprine, budesonide, and lubiprostone. Thereis been some concern for celiac disease. 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 documented in this [id number] Procedure [facility]08-01-2023 NoteClosed referral per Manuela declining appt for pt. See previous [facility]08-01-2023 Telephone encounter Note* Telephone Encounter - Ita Hurst MA - 06/16/2023 2:39 PM EDT Closed referral per Manuela declining appt for pt. See previous note [id number] Miscellaneous Notes* Telephone Encounter - Ita Hurst MA - 06/16/2023 2:39 PM EDT Closed referral per [place] declining appt for pt. See previous note * Telephone Encounter - Lisa Alberto - 06/15/2023 1:02 PM EDT Manuela is calling back in for an update. She was advised the office is scheduling into next year andis no longer needing to schedule the patient. 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 Archibald Practice: [facility] Rheumatology Chief Complaint/Reason for Call: Manuela states that she would like to receive a cb to discuss if theproviders are accepting [place] and when the soonest appt would be. Pt has a ref in chart for sjogrens w/ organ involvement. Please advise. Best time of day caller can be reached: Any Patient advised that office/PCP has 24-48 business hours to return their call: No documented in this encounterSCleveland Clinic [id number] Telephone encounter Note* Telephone Encounter - Lisa Alberto - 06/15/2023 1:02 PM EDT Manuela is calling back in for an update. She was advised the office is scheduling into next year andis no longer needing to schedule the patient. [id number] Miscellaneous Notes* Telephone Encounter - Lisa Alberto - 06/15/2023 1:02 PM EDT Manuela is calling back in for an update. She was advised the office is scheduling into next year andis no longer needing to schedule the patient. 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 Archibald Practice: [facility] Rheumatology Chief Complaint/Reason for Call: Manuela states that she would like to receive a cb to discuss if theproviders are accepting [place] and when the soonest appt would be. Pt has a ref in chart for sjogrens w/ organ involvement. Please advise. 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 Archibald Practice: [facility] Rheumatology Chief Complaint/Reason for Call: Manuela states that she would like to receive a cb to discuss if theproviders are accepting [place] and when the soonest appt would be. Pt has a ref in chart for sjogrens w/ organ involvement. Please advise. 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 Archibald Practice: [facility] Rheumatology Chief Complaint/Reason for Call: Manuela states that she would like to receive a cb to discuss if theproviders are accepting [place] and when the soonest appt would be. Pt has a ref in chart for sjogrens w/ organ involvement. Please advise. Best time of day caller can be reached: Any Patient advised that office/PCP has 24-48 business hours to return their call: No documented in this [facility]12-23-2022 Miscellaneous Notes* Telephone Encounter - Callie Coe LPN - 11/07/2022 7:55 AM EST Phone call placed patient advised (see prior provider encounter) Patient verbalized understanding, agreed with plan of care. Callie Coe LPN * Telephone Encounter - Reinaldo Pereira PA-C - 11/07/2022 7:19 AM EST Please call and let patient know he did test positive for influenza A. Continue knrp-gzl-ogevqek medications as needed for cough and congestion. If not improving over the next 3 to 5 days follow-up with PCP. [facility] Influenza virus A and B RNA and SARS-CoV-2 (COVID-19) N gene panel MEME+probe (Resp)COVID 19 RESULT: SARS-CoV-2 (Agent of COVID-19) Not Detected by RT-PCR or equivalent method. miguel [id number]_Hyqfj [employer] ([place])_EUA This test was developed and its performance characteristics determined by [facility] [place]. This test has been authorized by FDA under an Emergency Use Authorization (EUA). This test has been validated in accordance with the FDA's Guidance Document Policy for DiagnosticsTesting in Laboratories Certified to Perform High Complexity Testing under CLIA prior to Emergency use Authorization for Coronavirus Disease 2019 during the Public Health Emergency issued on January 14, 2020. Test performed by [facility], [facility] [place], [address] [place] [address]. INFLUENZA A PCR: Positive for Influenza A by RT-PCR INFLUENZA B PCR: Negative for Influenza B by RT-PCROhiohealth Berger HospitalComment on above: Performed By: #### [id number] #### [facility] CLIA [id number] [address] [place] [address] [place] [address] [place] [id number] NoteHNO ID: [id number] Author: Edward Powell APRN.EMAIL CAMPAIGN SPECIALIST Service: ? Author Type: Nurse Practitioner Type: Progress Notes Filed: 11/06/2022 12:09 PM Note Text: Subjective HPI Nontoxic-appearing male presents to urgent care with chief complaint of fever and cough. Duration of symptoms 2 days. Associated symptoms with today's chief complaint are on and off headache, muscle aches, fatigue, nonproductive cough, and sore throat. Patient stated symptoms started abruptly. Patient states they have used roxd-und-lxgjcoe medication with some success. Patient states they were in contact with individuals who were diagnosed with COVID-19. Patient denies any pain at this time. Patient denies any visual changes, visual disturbance, shortness of breath, rash, exercise intolerance, pleuritic pain, productive cough, abdominal pain, nausea, vomiting, chest pain, or change in bowel or bladder habits. Denies history of COVID-19 in past. Is not vaccinated. Past medical history prescription medication use allergies reviewed. .Patient presents with: Cough: Cough, congestion, wheezing, bodyaches and ROMANO x 2 days-exposed to COVID PAST MEDICAL HISTORY Diagnosis Date Bipolar 1 disorder (HCC) bethany and depression History of alcohol abuse History of bleeding peptic ulcer 2016 excess ibuprofen History of head injury 2010 ~2010 and 1997 History of heroin use Migraine since head injury PAST SURGICAL HISTORY Procedure Laterality Date COLONOSCOPY 2013 negative PAST SURGICAL HISTORY OF 1998 facial surgery PAST SURGICAL HISTORY OF spinal cyst removal REPAIR INGUINAL HERNIA 02/14/2021 RPR 1ST INGUN HRNA AGE 6 YRS/> REDUCIBLE 07/19/2019 Hernia repair, inguinal, femoral hernia, indirect femoral hernia ALLERGIES Penicillins MEDICATIONS ondansetron orally disintegrating (ZOFRAN ODT) 4 mg disintegrating tablet Take 1 tablet by mouth every 6 hours as needed for nausea/vomiting. fluticasone (FLONASE) 50 mcg/actuation nasal spray Use 2 Sprays in each nostril once daily. Rinse mouth after use. MAVYRET 100-40 mg tablet Take 1 tablet by mouth once daily. OLANZapine (ZYPREXA) 2.5 mg tablet Take 1 tablet by mouth once daily. buprenorphine SL (SUBUTEX) 2 mg subl Dissolve 2 mg under the tongue three times daily. OXcarbazepine (TRILEPTAL) 600 mg tablet Take 1.5 tablets by mouth once daily. 900 MG daily. fluvoxaMINE (LUVOX) 100 mg tablet Take 1 tablet by mouth daily at bedtime. propranolol (INDERAL) 20 mg tablet Take 1 tablet by mouth twice daily. acetaminophen (TYLENOL EXTRA STRENGTH) 500 mg tablet Take 1 tablet by mouth every 8 hours as needed for Pain. BUPRENORPHINE HCL/NALOXONE HCL (SUBOXONE SUBLINGUAL) Dissolve under the tongue. carbamide peroxide (DEBROX) 6.5 % otic solution Use 5 Drops in both ears twice daily. albuterol HFA (PROAIR HFA) 90 mcg/actuation inhaler Inhale 2 Puffs as instructed every 4 hours as needed. (Patient not taking: Reported on 03/04/2022 ) guaiFENesin (MUCINEX) 600 mg 12 hr tablet Take 2 tablets by mouth twice daily. (Patient not taking: Reported on 03/04/2022 ) famotidine (PEPCID) 20 mg tablet Take 1 tablet by mouth once daily. (Patient not taking: Reported on 03/04/2022 ) ferrous sulfate 325 mg (65 mg iron) tablet Take 325 mg by mouth once daily. (Patient not taking: Reported on 03/04/2022 ) ondansetron (ZOFRAN) 4 mg tablet Take 1 tablet by mouth as needed. (Patient not taking: Reported on 03/04/2022 ) FAMILY HISTORY Problem Relation Age of Onset Diabetes Maternal Uncle other (tumors) Son spontaneous tumors- benign Social History Tobacco Use Smoking status: Every Day Packs/day: 1.00 Types: Cigarettes Smokeless tobacco: Never Substance Use Topics Alcohol use: No Comment: past alcohol use Drug use: Not Currently Comment: past drug use- heroin BP 102/64 Pulse 84 Temp 36.6 ?C (97.9 ?F) (Tympanic) Resp 18 Wt 58.8 kg (129 lb 9.6 oz) SpO2 95% BMI 19.14 kg/m? Review of Systems Constitutional: Positive for chills and malaise/fatigue. Negative for fever. HENT: Positive for sore throat. Negative for congestion, ear discharge, ear pain and sinus pain. Eyes: Negative for blurred vision, pain, discharge and redness. Respiratory: Positive for cough. Negative for hemoptysis, sputum production, shortness of breath, wheezing and stridor. Cardiovascular: Negative for chest pain. Gastrointestinal: Negative for abdominal pain, diarrhea, nausea and vomiting. Musculoskeletal: Positive for myalgias. Skin: Negative for itching and rash. Neurological: Positive for headaches. Negative for dizziness. Objective Physical Exam Constitutional: General: He is not in acute distress. Appearance: He is not diaphoretic. HENT: Head: Normocephalic. Mouth/Throat: Mouth: Mucous membranes are moist. Pharynx: Oropharynx is clear. No oropharyngeal exudate or posterior oropharyngeal erythema. Eyes: Conjunctiva/sclera: Co (more content not included)...[facility] 11-06-20[facility] History of Present illness Narrative* Edward Powell APRN.[facility] - 11/06/2022 11:53 AM EST Subjective HPI Nontoxic-appearing male presents to urgent care with chief complaint of fever and cough. Duration of symptoms 2 days. Associated symptoms with today's chief complaint are on and off headache, muscle aches, fatigue, nonproductive cough, and sore throat. Patient stated symptoms started abruptly. Patient states they have used wwgc-sbh-wgwsaix medication with some success. Patient states they were incontact with individuals who were diagnosed with COVID-19. Patient denies any pain at this time. Patient denies any visual changes, visual disturbance, shortness of breath, rash, exercise intolerance, pleuritic pain, productive cough, abdominal pain, nausea, vomiting, chest pain, or change in bowelor bladder habits. Denies history of COVID-19 in past. Is not vaccinated. Past medical history prescription medication use allergies reviewed. .Patient presents with: Cough: Cough, congestion, wheezing, bodyaches and ROMANO x 2 days-exposed to COVID PAST MEDICAL HISTORY Diagnosis Date Bipolar 1 disorder (HCC) bethany and depression History of alcohol abuse History of bleeding peptic ulcer 2016 excess ibuprofen History of head injury 2010 ~2010 and 1997 History of heroin use Migraine since head injury PAST SURGICAL HISTORY Procedure Laterality Date COLONOSCOPY 2014 negative PAST SURGICAL HISTORY OF 1998 facial surgery PAST SURGICAL HISTORY OF spinal cyst removal REPAIR INGUINAL HERNIA 02/14/2021 RPR 1ST INGUN HRNA AGE 6 YRS/> REDUCIBLE 07/19/2019 Hernia repair, inguinal, femoral hernia, indirect femoral hernia ALLERGIES Penicillins MEDICATIONS ondansetron orally disintegrating (ZOFRAN ODT) 4 mg disintegrating tablet Take 1 tablet by mouth every 6 hours as needed for nausea/vomiting. fluticasone (FLONASE) 50 mcg/actuation nasal spray Use 2 Sprays in each nostril once daily. Rinse mouth after use. MAVYRET 100-40 mg tablet Take 1 tablet by mouth once daily. OLANZapine (ZYPREXA) 2.5 mg tablet Take 1 tablet by mouth once daily. buprenorphine SL (SUBUTEX) 2 mg subl Dissolve 2 mg under the tongue three times daily. OXcarbazepine (TRILEPTAL) 600 mg tablet Take 1.5 tablets by mouth once daily. 900 MG daily. fluvoxaMINE (LUVOX) 100 mg tablet Take 1 tablet by mouth daily at bedtime. propranolol (INDERAL) 20 mg tablet Take 1 tablet by mouth twice daily. acetaminophen (TYLENOL EXTRA STRENGTH) 500 mg tablet Take 1 tablet by mouth every 8 hours as neededfor Pain. BUPRENORPHINE HCL/NALOXONE HCL (SUBOXONE SUBLINGUAL) Dissolve under the tongue. carbamide peroxide (DEBROX) 6.5 % otic solution Use 5 Drops in both ears twice daily. albuterol HFA (PROAIR HFA) 90 mcg/actuation inhaler Inhale 2 Puffs as instructed every 4 hours as needed. (Patient not taking: Reported on 03/04/2022 ) guaiFENesin (MUCINEX) 600 mg 12 hr tablet Take 2 tablets by mouth twice daily. (Patient not taking:Reported on 03/04/2022 ) famotidine (PEPCID) 20 mg tablet Take 1 tablet by mouth once daily. (Patient not taking: Reported on 03/04/2022 ) ferrous sulfate 325 mg (65 mg iron) tablet Take 325 mg by mouth once daily. (Patient not taking: Reported on 03/04/2022 ) ondansetron (ZOFRAN) 4 mg tablet Take 1 tablet by mouth as needed. (Patient not taking: Reported on03/04/2022 ) FAMILY HISTORY Problem Relation Age of Onset Diabetes Maternal Uncle other (tumors) Son spontaneous tumors- benign Social History Tobacco Use Smoking status: Every Day Packs/day: 1.00 Types: Cigarettes Smokeless tobacco: Never Substance Use Topics Alcohol use: No Comment: past alcohol use Drug use: Not Currently Comment: past drug use- heroin BP 102/64 Pulse 84 Temp 36.6 C (97.9 F) (Tympanic) Resp 18 Wt 58.8 kg (129 lb 9.6 oz) SpO2 95% BMI 19.14 kg/m Review of Systems Constitutional: Positive for chills and malaise/fatigue. Negative for fever. HENT: Positive for sore throat. Negative for congestion, ear discharge, ear pain and sinus pain. Eyes: Negative for blurred vision, pain, discharge and redness. Respiratory: Positive for cough. Negative for hemoptysis, sputum production, shortness of breath, wheezing and stridor. Cardiovascular: Negative for chest pain. Gastrointestinal: Negative for abdominal pain, diarrhea, nausea and vomiting. Musculoskeletal: Positive for myalgias. Skin: Negative for itching and rash. Neurological: Positive for headaches. Negative for dizziness. Objective Physical Exam Constitutional: General: He is not in acute distress. Appearance: He is not diaphoretic. HENT: Head: Normocephalic. Mouth/Throat: Mouth: Mucous membranes are moist. Pharynx: Oropharynx is clear. No oropharyngeal exudate or posterior oropharyngeal erythema. Eyes: Conjunctiva/sclera: Conjunctivae normal. Pupils: Pupils are equal, round, and reactive to light. Cardiovascular: Rate and Rhythm: Normal rate and regular rhythm. Heart sounds: Normal heart sounds. Pulmonary: Effort: Pulmonary effort is normal. No tachypnea, accessory muscle usage or respiratory distress. Breath sounds: Normal breath sounds. No stridor. No wheezing, rhonchi or rales. Abdominal: Palpations: Abdomen is soft. Tenderness: There is no abdominal tenderness. There is no guarding or rebound. Musculoskeletal: Cervical back: Normal range of motion and neck supple. No rigidity or tenderness. Lymphadenopathy: Cervical: No cervical adenopathy. Skin: General: Skin is warm and dry. Neurological: Mental Status: He is alert and oriented to person, place, and time. ASSESSMENT/PLAN: 1. Viral illness - ICD9: 079.99, ICD10: B34.9 - Discussed viral etiology and rationale for treatment. - Symptomatic treatment with prn analgesia - Supportive care with fluids and rest - COVID WITH FLUA+B, ROUTINE We discussed if positive contact GI doctor for possible COVID antiviral medication prescription. Patient was educated on supportive therapies. Patient will follow up with primary care provider as needed. Patient was instructed to immediately proceed to emergency room for any new, worsening, or symptoms lasting longer than anticipated. The patient's clinical presentation is otherwise unremarkable at this time. Based on exam and clinical finding, the patient is stable for discharge. Plan of care was discussed with patient. Patient verbalizes understanding and agrees to plan of care. This note was generated using [employer] software. It may contain errors in wording, punctuation, or spelling. Edward Powell APRN.JACKIE documented in this encounterH[facility]12-[facility]22 Instructions* Patient Instructions* Edward Powell APRN.CNP - 11/06/2022 11:53 AM EST How to Manage Common Symptoms Associated with COVID for Adults Fever- Fever is a temperature over 100.4 F and can occur when the body is fighting an infection. Tohelp treat a fever: Drink plenty of fluids and stay well hydrated. Eat small amounts of easy to digest food. Rest. Your body needs rest to recover, but getting up and moving around the house frequently is a good idea. You should try to continue doing your normal daily activities (bathing, toileting, grooming, cooking), though you will probably feel tired, and need to rest often. Avoid any heavy activity or exercise, as this will increase your body temperature. Dress in light clothing and stay covered in a light sheet. Keep the room temperature cool. Take a slightly warm (not cold or cool) bath, or apply damp washcloths to the forehead and wrists. Cough- Cough is a common symptom associated with COVID and can be bothersome. To help treat a cough: Stay well hydrated. Try warm water or tea with lemon and/or honey to help soothe the cough. Use a humidifier to add moisture to the air. Try a product with menthol, like a cough drop or a rub for your chest such as Vicks, which can helpreduce cough. Try cough drops. Avoid smoking and other strong odors or perfumes. Try breathing exercises to keep your lungs open and clear. Take a big deep breath through your noseand hold for 5 seconds before slowly releasing. Repeat frequently, while you are awake. Congestion- Runny nose or nasal congestion can occur with COVID. Treatment can help relieve symptoms: Try OTC nasal saline spray, or nasal saline rinse to relieve mucus congestion. Nasal strips can help keep nasal passages open, to increase airflow. Elevating your head with an extra pillow in bed can help reduce congestion. Using a humidifier can increase moisture in the air, and make breathing easier. Sore Throat- Another common symptom with COVID, can be managed at home by: Stay well hydrated. Gargle with salt water - mix teaspoon salt with 1 cup of warm water and gargle. This helps to loosen mucus in the back of the throat and may reduce discomfort. Try ice chips, popsicles or lozenges to soothe the throat. Nausea/Vomiting/Diarrhea- These are common symptoms, and staying hydrated is most important. If you are nauseous or vomiting, start with small sips of water every 10-15 minutes and increase astolerated. You can try sucking an ice cube too. If tolerating, you can try pedialyte or Gatorade, or flat sprite or sheryl-ryan. Start slowly and increase as you are able to. Instead of meals, try smaller, more frequent snacks. Try eating bland foods like crackers, toast, rice, and applesauce. Avoid spicy, greasy or fried foods and dairy containing foods. Even if you aren't feeling hungry due to lack of smell or taste, it is important to try to take in some food when you are able. After drinking and eating, rest in an upright position for up to two hours as needed to help decrease nauseous feelings. Try closing your eyes, avoid moving and watching TV. Avoid strong odors that can make you feel more nauseated. When to seek emergency medical attention Look for emergency warning signs for COVID-19. If having any of these symptoms, seek emergency medical care immediately: Trouble breathing Persistent pain or pressure in the chest New confusion Inability to wake or stay awake Bluish lips or face *This list is not all possible symptoms. Please call your medical provider for any other symptoms that are severe or concerning to you. documented in this encounterHock[facility]04-20-2022 Miscellaneous Notes* Telephone Encounter - Klaudia Martinez - 03/05/2022 8:20 AM EDT Patient given results and verbalized understanding of instructions given. Klaudia Martinez * Telephone Encounter - Reinaldo Pereira PA-C - 03/05/2022 7:12 AM EDT Let patient know he was negative for COVID and influenza. documented in this encounterHocking [facility]04-19-2022 Influenza virus A and B RNA and SARS-CoV-2 (COVID-19) N gene panel MEME+probe (Resp)COVID 19 RESULT: SARS-CoV-2 (Agent of COVID-19) Not Detected by RT-PCR or equivalent method. miguel [id number] ([place])_EUA This test was developed and its performance characteristics determined by [facility] [place]. This test has been authorized by FDA under an Emergency Use Authorization (EUA). This test has been validated in accordance with the FDA's Guidance Document Policy for DiagnosticsTesting in Laboratories Certified to Perform High Complexity Testing under CLIA prior to Emergency use Authorization for Coronavirus Disease 2019 during the Public Health Emergency issued on January 14, 2020. Test performed by [facility], [facility] [place], [address] [place] [address]. INFLUENZA A PCR: Negative for Influenza A by RT-PCR INFLUENZA B PCR: Negative for Influenza B by RT-PCROhiohealth Berger HospitalComment on above: Performed By: #### [id number] #### [facility] CLIA [id number] [address] [facility] [place] [address] [place] [id number] NoteHNO ID: [id number] Author: Edward Powell APRN.EM[employer]PA[employer] SPECIALIST Service: ? Author Type: Nurse Practitioner Type: Progress Notes Filed: 03/04/2022 11:44 AM Note Text: Subjective HPI Nontoxic-appearing male presents urgent care chief complaint flulike symptoms. Duration of symptoms 1 day. Associated symptoms abrupt onset of body aches chills fatigue nausea headache sinus congestion sore throat and cough. Denies any known sick contacts. 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 Most predominant symptom today is fatigue and body aches. Denies history of COVID-19 recently. Is not vaccinated. Denies any high fevers productive cough chest pain shortness of breath pleuritic pain hemoptysis vomiting abdominal pain change in bowel or bladder habits. Past medical history prescription medication use allergies reviewed. .Patient presents with: Sinus Problem: sinus, nausea and bodyaches x 1 day PAST MEDICAL HISTORY Diagnosis Date - Bipolar 1 disorder (HCC) bethany and depression - History of alcohol abuse - History of bleeding peptic ulcer 2016 excess ibuprofen - History of head injury 2010 ~2010 and 1997 - History of heroin use - Migraine since head injury PAST SURGICAL HISTORY Procedure Laterality Date - COLONOSCOPY 2013 negative - PAST SURGICAL HISTORY OF 1997 facial surgery - PAST SURGICAL HISTORY OF spinal cyst removal - REPAIR INGUINAL HERNIA 02/14/2021 - RPR 1ST INGUN HRNA AGE 6 YRS/> REDUCIBLE 07/19/2019 Hernia repair, inguinal, femoral hernia, indirect femoral hernia ALLERGIES Penicillins MEDICATIONS fluticasone (FLONASE) 50 mcg/actuation nasal spray Use 2 Sprays in each nostril once daily. Rinse mouth after use. OLANZapine (ZYPREXA) 2.5 mg tablet Take 1 tablet by mouth once daily. buprenorphine SL (SUBUTEX) 2 mg subl Dissolve 2 mg under the tongue three times daily. OXcarbazepine (TRILEPTAL) 600 mg tablet Take 1.5 tablets by mouth once daily. 900 MG daily. fluvoxaMINE (LUVOX) 100 mg tablet Take 1 tablet by mouth daily at bedtime. propranolol (INDERAL) 20 mg tablet Take 1 tablet by mouth twice daily. acetaminophen (TYLENOL EXTRA STRENGTH) 500 mg tablet Take 1 tablet by mouth every 8 hours as needed for Pain. BUPRENORPHINE HCL/NALOXONE HCL (SUBOXONE SUBLINGUAL) Dissolve under the tongue. carbamide peroxide (DEBROX) 6.5 % otic solution Use 5 Drops in both ears twice daily. albuterol HFA (PROAIR HFA) 90 mcg/actuation inhaler Inhale 2 Puffs as instructed every 4 hours as needed. guaiFENesin (MUCINEX) 600 mg 12 hr tablet Take 2 tablets by mouth twice daily. famotidine (PEPCID) 20 mg tablet Take 1 tablet by mouth once daily. ferrous sulfate 325 mg (65 mg iron) tablet Take 325 mg by mouth once daily. MAVYRET 100-40 mg tablet Take 1 tablet by mouth once daily. ondansetron (ZOFRAN) 4 mg tablet Take 1 tablet by mouth as needed. FAMILY HISTORY Problem Relation Age of Onset - Diabetes Maternal Uncle - other (tumors) Son spontaneous tumors- benign Social History Tobacco Use - Smoking status: Current Every Day Smoker Packs/day: 1.00 Types: Cigarettes - Smokeless tobacco: Never Used Substance Use Topics - Alcohol use: No Comment: past alcohol use - Drug use: Not Currently Comment: past drug use- heroin BP 102/74 Pulse 77 Temp 37 ?C (98.6 ?F) (Tympanic) Resp 18 Wt 62.9 kg (138 lb 9.6 oz) BMI 20.47 kg/m? 96%. Review of Systems Constitutional: Positive for chills, fever and malaise/fatigue. HENT: Positive for congestion, sinus pain and sore throat. Negative for ear discharge and ear pain. Eyes: Negative for blurred vision, pain, discharge and redness. Respiratory: Positive for cough. Negative for hemoptysis, sputum production, shortness of breath, wheezing and stridor. Cardiovascular: Negative for chest pain. Gastrointestinal: Positive for nausea. Negative for abdominal pain, diarrhea and vomiting. Musculoskeletal: Positive for myalgias. Skin: Negative for itching and rash. Neurological: Positive for headaches. Negative for dizziness. Objective Physical Exam Vitals and nursing note reviewed. Constitutional: General: He is not in acute distress. Appearance: He is not diaphoretic. HENT: Head: Normocephalic and atraumatic. Jaw: No trismus, tenderness, swelling or malocclusion. Right Ear: Hearing, tympanic membrane, ear canal and external ear normal. No decreased hearing noted. No drainage, swelling or tenderness. No mastoid tenderness. Tympanic membrane is not perforated, erythematous or bulging. Left Ear: Hearing, tympanic membrane, ear canal and external ear normal. No decreased hearing noted. No drainage, swelling or tenderness. No mastoid tenderness. Tympanic membrane is not perforated, erythematous or bulging. Mouth/Throat: Lips: [place]. Mouth: Mucous membranes are moist. Palate: No mass. Pharynx: Oropharynx is clear. Uvula midline. No pharyngeal swelling, oropharyngeal exudat (more content not included)...[facility] 03-04-2022 Instructions* Patient Instructions* Edward Powell APRN.[facility] [facility] - 03/04/2022 11:35 AM EDT How to Manage Common Symptoms Associated with COVID for Adults Fever- Fever is a temperature over 100.4 F and can occur when the body is fighting an infection. Tohelp treat a fever: Drink plenty of fluids and stay well hydrated. Eat small amounts of easy to digest food. Rest. Your body needs rest to recover, but getting up and moving around the house frequently is a good idea. You should try to continue doing your normal daily activities (bathing, toileting, grooming, cooking), though you will probably feel tired, and need to rest often. Avoid any heavy activity or exercise, as this will increase your body temperature. Dress in light clothing and stay covered in a light sheet. Keep the room temperature cool. Take a slightly warm (not cold or cool) bath, or apply damp washcloths to the forehead and wrists. Cough- Cough is a common symptom associated with COVID and can be bothersome. To help treat a cough: Stay well hydrated. Try warm water or tea with lemon and/or honey to help soothe the cough. Use a humidifier to add moisture to the air. Try a product with menthol, like a cough drop or a rub for your chest such as Vicks, which can helpreduce cough. Try cough drops. Avoid smoking and other strong odors or perfumes. Try breathing exercises to keep your lungs open and clear. Take a big deep breath through your noseand hold for 5 seconds before slowly releasing. Repeat frequently, while you are awake. Congestion- Runny nose or nasal congestion can occur with COVID. Treatment can help relieve symptoms: Try OTC nasal saline spray, or nasal saline rinse to relieve mucus congestion. Nasal strips can help keep nasal passages open, to increase airflow. Elevating your head with an extra pillow in bed can help reduce congestion. Using a humidifier can increase moisture in the air, and make breathing easier. Sore Throat- Another common symptom with COVID, can be managed at home by: Stay well hydrated. Gargle with salt water mix teaspoon salt with 1 cup of warm water and gargle. This helps to loosen mucus in the back of the throat and may reduce discomfort. Try ice chips, popsicles or lozenges to soothe the throat. Nausea/Vomiting/Diarrhea- These are common symptoms, and staying hydrated is most important. If you are nauseous or vomiting, start with small sips of water every 10-15 minutes and increase astolerated. You can try sucking an ice cube too. If tolerating, you can try pedialyte or Gatorade, or flat sprite or sheryl-ryan. Start slowly and increase as you are able to. Instead of meals, try smaller, more frequent snacks. Try eating bland foods like crackers, toast, rice, and applesauce. Avoid spicy, greasy or fried foods and dairy containing foods. Even if you aren't feeling hungry due to lack of smell or taste, it is important to try to take in some food when you are able. After drinking and eating, rest in an upright position for up to two hours as needed to help decrease nauseous feelings. Try closing your eyes, avoid moving and watching TV. Avoid strong odors that can make you feel more nauseated. When to seek emergency medical attention Look for emergency warning signs for COVID-19. If having any of these symptoms, seek emergency medical care immediately: Trouble breathing Persistent pain or pressure in the chest New confusion Inability to wake or stay awake Bluish lips or face *This list is not all possible symptoms. Please call your medical provider for any other symptoms that are severe or concerning to you. documented in this encounterH[facility]ing [facility]04-19-2022 History of Present illness Narrative* Edward Powell APRN.CNP - 03/04/2022 11:24 AM EDT Subjective HPI Nontoxic-appearing male presents urgent care chief complaint flulike symptoms. Duration of symptoms1 day. Associated symptoms abrupt onset of body aches chills fatigue nausea headache sinus congestion sore throat and cough. Denies any known sick contacts. 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 Most predominant symptom today is fatigue and body aches. Denies history of COVID-19 recently. Is not vaccinated. Denies any high fevers productive cough chest pain shortness of breath pleuritic pain hemoptysis vomiting abdominal pain change in bowel or bladder habits. Past medical history prescription medication use allergies reviewed. .Patient presents with: Sinus Problem: sinus, nausea and bodyaches x 1 day PAST MEDICAL HISTORY Diagnosis Date Bipolar 1 disorder (HCC) bethany and depression History of alcohol abuse History of bleeding peptic ulcer 2015 excess ibuprofen History of head injury 2010 ~2010 and 1997 History of heroin use Migraine since head injury PAST SURGICAL HISTORY Procedure Laterality Date COLONOSCOPY 2013 negative PAST SURGICAL HISTORY OF 1997 facial surgery PAST SURGICAL HISTORY OF spinal cyst removal REPAIR INGUINAL HERNIA 02/14/2021 RPR 1ST INGUN HRNA AGE 6 YRS/> REDUCIBLE 07/19/2019 Hernia repair, inguinal, femoral hernia, indirect femoral hernia ALLERGIES Penicillins MEDICATIONS fluticasone (FLONASE) 50 mcg/actuation nasal spray Use 2 Sprays in each nostril once daily. Rinse mouth after use. OLANZapine (ZYPREXA) 2.5 mg tablet Take 1 tablet by mouth once daily. buprenorphine SL (SUBUTEX) 2 mg subl Dissolve 2 mg under the tongue three times daily. OXcarbazepine (TRILEPTAL) 600 mg tablet Take 1.5 tablets by mouth once daily. 900 MG daily. fluvoxaMINE (LUVOX) 100 mg tablet Take 1 tablet by mouth daily at bedtime. propranolol (INDERAL) 20 mg tablet Take 1 tablet by mouth twice daily. acetaminophen (TYLENOL EXTRA STRENGTH) 500 mg tablet Take 1 tablet by mouth every 8 hours as neededfor Pain. BUPRENORPHINE HCL/NALOXONE HCL (SUBOXONE SUBLINGUAL) Dissolve under the tongue. carbamide peroxide (DEBROX) 6.5 % otic solution Use 5 Drops in both ears twice daily. albuterol HFA (PROAIR HFA) 90 mcg/actuation inhaler Inhale 2 Puffs as instructed every 4 hours as needed. guaiFENesin (MUCINEX) 600 mg 12 hr tablet Take 2 tablets by mouth twice daily. famotidine (PEPCID) 20 mg tablet Take 1 tablet by mouth once daily. ferrous sulfate 325 mg (65 mg iron) tablet Take 325 mg by mouth once daily. MAVYRET 100-40 mg tablet Take 1 tablet by mouth once daily. ondansetron (ZOFRAN) 4 mg tablet Take 1 tablet by mouth as needed. FAMILY HISTORY Problem Relation Age of Onset Diabetes Maternal Uncle other (tumors) Son spontaneous tumors- benign Social History Tobacco Use Smoking status: Current Every Day Smoker Packs/day: 1.00 Types: Cigarettes Smokeless tobacco: Never Used Substance Use Topics Alcohol use: No Comment: past alcohol use Drug use: Not Currently Comment: past drug use- heroin BP 102/74 Pulse 77 Temp 37 C (98.6 F) (Tympanic) Resp 18 Wt 62.9 kg (138 lb 9.6 oz) BMI 20.47 kg/m 96%. Review of Systems Constitutional: Positive for chills, fever and malaise/fatigue. HENT: Positive for congestion, sinus pain and sore throat. Negative for ear discharge and ear pain. Eyes: Negative for blurred vision, pain, discharge and redness. Respiratory: Positive for cough. Negative for hemoptysis, sputum production, shortness of breath, wheezing and stridor. Cardiovascular: Negative for chest pain. Gastrointestinal: Positive for nausea. Negative for abdominal pain, diarrhea and vomiting. Musculoskeletal: Positive for myalgias. Skin: Negative for itching and rash. Neurological: Positive for headaches. Negative for dizziness. Objective Physical Exam Vitals and nursing note reviewed. Constitutional: General: He is not in acute distress. Appearance: He is not diaphoretic. HENT: Head: Normocephalic and atraumatic. Jaw: No trismus, tenderness, swelling or malocclusion. Right Ear: Hearing, tympanic membrane, ear canal and external ear normal. No decreased hearing noted. No drainage, swelling or tenderness. No mastoid tenderness. Tympanic membrane is not perforated, erythematous or bulging. Left Ear: Hearing, tympanic membrane, ear canal and external ear normal. No decreased hearing noted. No drainage, swelling or tenderness. No mastoid tenderness. Tympanic membrane is not perforated, erythematous or bulging. Mouth/Throat: Lips: [place]. Mouth: Mucous membranes are moist. Palate: No mass. Pharynx: Oropharynx is clear. Uvula midline. No pharyngeal swelling, oropharyngeal exudate, posterior oropharyngeal erythema or uvula swelling. Eyes: General: Right eye: No discharge. Left eye: No discharge. Conjunctiva/sclera: Conjunctivae normal. Pupils: Pupils are equal, round, and reactive to light. Cardiovascular: Rate and Rhythm: Normal rate and regular rhythm. Heart sounds: Normal heart sounds. Pulmonary: Effort: Pulmonary effort is normal. No tachypnea, accessory muscle usage or respiratory distress. Breath sounds: Normal breath sounds. No stridor. No wheezing, rhonchi or rales. Chest: Chest wall: No tenderness. Abdominal: General: Bowel sounds are normal. Palpations: Abdomen is soft. Tenderness: There is no abdominal tenderness. There is no right CVA tenderness, left CVA tenderness, guarding or rebound. Musculoskeletal: General: No tenderness. Normal range of motion. Cervical back: Normal range of motion and neck supple. No rigidity or tenderness. Lymphadenopathy: Head: Right side of head: No submental, submandibular, tonsillar, preauricular, posterior auricular or occipital adenopathy. Left side of head: No submental, submandibular, tonsillar, preauricular, posterior auricular or occipital adenopathy. Cervical: No cervical adenopathy. Right cervical: No superficial or posterior cervical adenopathy. Left cervical: No superficial or posterior cervical adenopathy. Skin: General: Skin is warm and dry. Findings: No rash. Neurological: Mental Status: He is alert and oriented to person, place, and time. ASSESSMENT/PLAN: 1. Viral illness - ICD9: 079.99, ICD10: B34.9 - COVID WITH FLUA+B, ROUTINE Patient nontoxic-appearing. Vital signs within normal limits. Suspicious of viral etiology. Patientdoes have some nausea. Zofran sent to pharmacy for as needed use. Patient was educated on supportive therapies. Patient will follow up with primary care provider as needed. Patient was instructed to immediately proceed to emergency room for any new, worsening, or symptoms lasting longer than anticipated. The patient's clinical presentation is otherwise unremarkable at this time. Based on exam and clinical finding, the patient is stable for discharge. Plan of care was discussed with patient. Patient verbalizes understanding and agrees to plan of care. This note was generated using [employer] software. It may contain errors in wording, punctuation, or spelling. Edward Powell APRN.JACKIE documented in this encounterHocking Valley Community HospitalDischarge summary Author Bryce Muro [facility] September 29, 2023 10:07am Note Date/Time September 29, 2023 10:07am [facility] Medical Records Department [address] [place] [id number] Instructions for Home/Discharge Instructions 09/29/23 1006 MR#: [id number] Acct: [id number] Name: JOSE MCNAMARA Rep #:[id number] : 1980 43 From: Bryce bunch MD PCP: Dr. Josselyn Galindo MD Status:REG [facility] Discharge Instructions Diet Discharge Diet: No restrictions Activity Discharge Activity: Return to Normal Activity Dressing / Incision Call your doctor if your incision/area has: Increased Pain/ Swelling Follow Up Care Please Follow Up With: Bryce Muro MD When: 3 weeks Test Results: Test results from this visit will be discussed in further detail at your follow- up appointment, if applicable. Discharge Plan Admission Attending Provider: Bryce Muro Primary Care Provider: Josselyn Galindo Discharge Orders/Prescriptions Prescriptions: No Action oxcarbazepine 600 mg tablet 900 mg PO BID fluvoxamine 100 mg tablet 100 mg PO QHS propranolol 20 mg tablet 20 mg PO BID buprenorphine-naloxone 8-2 mg tablet, sublingual 2 tab sublingual BID Patient Comments: DISOLVE 2 AND ONE-HALF TABLETS UNDER THE TONGUE DAILY FOR 28 DAYS olanzapine 5 mg tablet 5 mg PO QHS albuterol 90 mcg/actuation aerosol 90 mcg inhalation PRN ondansetron 4 mg tablet,disintegrating 4 mg PO Q8H PRN (Reason: nausea and vomiting) Qty: 30 0RF lubiprostone [Amitiza] 8 mcg capsule 8 mcg PO QHS budesonide 3 mg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
[2025-06-03 13:25] VITALS: O2SAT 94
--- NOTE | 2025-06-03 13:29 | ED.VIS.LOWEX ---
HPI History of Present Illness Chief Complaint: Edema Informant: patient Narrative Narrative: Presents for evaluation bilateral lower leg swelling for the past week. He went kayaking 8 days ago out in the sun there was redness to the leg. The following day increasing swelling. No orthopnea symptoms. No history of CHF. On arrival he was 88% on room air. He has had a recent cough that is improving. He does admit to smoking since he was 9 or 10 years old currently 45. Denies diagnosed asthma or COPD. Denies any home oxygen. No recent travel or surgeries. No history of PE or DVT. Denies fever chills or sweats. He denies any shortness of breath. Reported to walk to the emergency department. Prior similar symptoms: No PFSH PFSH Medical History Urinary hesitancy Erectile dysfunction Low testosterone in male Pain Crohn's disease Sjogren's disease Chest congestion Loss of hearing Wears glasses Marijuana use Alcohol use Substance abuse Injury of back Migraine headache Dietary restriction Difficulty swallowing COPD (chronic obstructive pulmonary disease) History of edema History of echocardiogram Enlarged heart History of diverticulitis Seizure History of blood transfusion Celiac disease Positive GETACHEW (antinuclear antibody) GERD (gastroesophageal reflux disease) Bipolar disorder Depression Anxiety Arthritis Injury of head and neck Smoker Hoarseness Abdominal pain Enlarged heart Migraines Ulcer Hearing problem Back problem Alcohol abuse Infective endocarditis Drug abuse Home Medications ?Medication ?Instructions ?Recorded ?Last Taken ?Type fluvoxamine 100 mg tablet 100 mg PO QHS 08/06/18 Unknown History propranolol 20 mg tablet 20 mg PO BID 08/06/18 Unknown History olanzapine 5 mg tablet 5 mg PO QHS 06/17/23 Unknown History ondansetron 4 mg disintegrating 4 mg PO Q8H PRN nausea and 09/01/23 Unknown Rx tablet vomiting #30 tabs albuterol sulfate 90 mcg/actuation 2 puff inhalation Q6H PRN 01/07/24 Unknown Rx aerosol inhaler shortness of breath or wheezing #6.7 grams divalproex 500 mg tablet,delayed 500 mg PO BID 10/04/24 Unknown History release (Depakote) sucralfate 1 gram tablet 1 g PO Q6H #120 TABLETS 02/17/25 Unknown Rx buprenorphine 8 mg-naloxone 2 mg 1 tab sublingual TID 04/04/25 Unknown History sublingual tablet oxcarbazepine 600 mg tablet 1,200 mg PO BID 04/04/25 Unknown History sumatriptan succinate 50 mg tablet 50 mg PO Q2H PRN migraine headache 04/04/25 Unknown History testosterone 1 pump topical QDAY #75 grams 04/06/25 Unknown Rx gabapentin 300 mg capsule 300 mg PO BID #60 caps 05/02/25 Unknown Rx magnesium oxide 500 mg capsule 500 mg PO DAILY #30 caps 05/02/25 Unknown Rx dicyclomine 10 mg capsule 10 mg PO BID #60 caps 05/05/25 Unknown Rx alprazolam 1 mg tablet 1 mg PO BID PRN anxiety 1 month 05/25/25 Unknown Rx #60 tabs alprazolam 1 mg tablet (Xanax) 1 mg PO BID 06/03/25 Unknown History olanzapine 5 mg tablet (Zyprexa) 5 mg PO QHS 06/03/25 Unknown History prednisone 10 mg tablet 10 mg PO Q12H 06/03/25 Unknown History Allergy/AdvReac Type Severity Reaction Status Date / Time Penicillins Allergy Unknown Rash Verified 06/03/25 18:33 Family History Uncle Diabetes Aunt Diabetes Father Heart disease Alcohol abuse Enlarged heart Son Benign brain tumor Seizures Grandmother Seizures Other Anxiety Surgical History Hx of colonoscopy History of esophagogastroduodenoscopy (EGD) Hx of hernia repair History of facial surgery Social History household members: friend(s) current occupational status: employed current occupation: [employer], on FMLA currently due to abdominal problems Smoking Status: Current every day smoker tobacco type: cigarettes Tobacco: How many years used: 33 Electronic Cigarette Use: not used second hand exposure: No quit status: considering quitting alcohol intake: former year quit: 2010 substance use type: former substance user Date of last use: heroin - 2018, marijuana and sedatives caffeine: Yes what type of physical activity do you participate in: walking and weight training frequency: 1-2 times per week seatbelt use: always do you feel safe at home: Yes ROS ROS ED Constitutional Constitutional ED: Denies chills, fever(s) or sweats ENT ENT ED: Denies sore throat Cardiovascular Cardiovascular: Reports leg edema; Denies chest pain, palpitations or racing heartbeat Respiratory/Chest Respiratory/Chest: Reports cough; Denies dyspnea or dyspnea on exertion Gastrointestinal Gastrointestinal: Denies abdominal pain, diarrhea, nausea or vomiting Genitourinary Genitourinary ED: Denies dysuria, hematuria or urinary frequency Musculoskeletal Musculoskeletal: Denies back pain, extremity pain or neck pain Integumentary Denies rash or wounds Neurologic Neurologic: Denies headache(s), paresthesias or weakness EXAM Physical Exam Const Vital Signs: 06/03/25 12:48 06/03/25 13:25 06/03/25 14:47 Temperature 98.6 F Temperature Source Oral Pulse Rate 100 69 Respiratory Rate 18 15 Blood Pressure 118/82 H 82/48 L Blood Pressure Mean 94 59 Pulse Ox 88 94 95 Oxygen Delivery Method Room Air Nasal Cannula Nasal Cannula Oxygen Flow Rate (L/min) 2 2 Positive well nourished and well developed General Appearance ED: well developed and NAD HEENT Reports moist mucous membranes normocephalic and atraumatic Eyes General Eye ED: Yes normal appearance of both eyes Neck full ROM Chest Wall Chest: Negative for tenderness Resp normal respiratory effort and normal air movement Effort and Inspection: symmetric chest movement; Negative for respiratory distress Cardio regular rate, regular rhythm and no murmurs Peripheral Pulses: pulses 2+ throughout GI normal to inspection, nondistended, normoactive bowel sounds and non-tender Palpation: Negative for guarding or rebound tenderness present Extremity Extremity Narrative: Bilateral lower legs 1+ swelling no calf tenderness. There are healing abrasions left anterior tibia. There is still residual redness that will spare the foot area. General Extremety ED: Yes edema; Negative for tenderness General Extremity: edema Neuro oriented x3 and no sensory deficits noted Sensorium / Orientation: awake and alert Skin no rashes or lesions noted and no wounds MDM MDM MDM Narrative Medical decision making narrative: Interventions / MDM: Differential diagnosis: Hypoxia, bilateral lower extremity swelling, history of COPD, CHF Diagnosis considered but do not suspect: No clinical DVT symptoms. My EKG interpretation: Sinus rate of 77, no ST changes. Imaging independently reviewed and interpreted by myself: 2 view chest x-ray: COPD findings. No infiltrates. External documents reviewed: External records had pulmonology evaluation 10/05/2023 with a diagnosis of COPD. Test considered but not ordered:N/A ED course: Patient bilateral lower extremity swelling with redness that spares the feet. There are some skin peeling anterior distal leg. Area consistent of sunburn. He had abrasions left anterior leg without any infectious findings. However he is hypoxic on arrival he was 86% in the room with good waveform. Denies any dyspnea. He was denying any asthma or COPD history however has a long tobacco history. He denies orthopnea. Due to his hypoxia we will workup with labs and image studies. He is placed on oxygen. 1433: D-dimer negative. Chest x-ray is ordered COPD findings. BNP is 465. Will dose with Lasix for leg swelling. With hypoxia will discuss with hospitalist for admission. 1450: Provide Lasix being given at nursing reported immediate pressure went down the systolic 82/48. Lasix held. I spoke with hospitalist Dr. Lyons, clinically lower suspicion for CHF. States with the leukocytosis and hypotension will need to treat for sepsis. Lactic acid blood cultures ordered 30 cc/kg normal saline ordered for bolus. Will cover for Rocephin and Zithromax sepsis with upper respiratory symptoms and COPD. She will evaluate the patient in the ED for placement location. 1600: Patient was evaluated by hospitalist. Will continue treatment plan as was awaiting for lactic acid and procalcitonin for planned placement. With fluids his blood pressure improving on the monitor. However patient relayed to nursing that he would like to leave the hospital. I discussed with him with his hypoxia his blood pressure being low he is at high risk for cardiopulmonary arrest. He understands this. Is alert and oriented x 3 is capable of making decisions. He will sign out AGAINST MEDICAL ADVICE. With his COPD history and leukocytosis I will send in antibiotics and steroids to his pharmacy. Discussed if he changes his mind to return to the hospital for reevaluation and admission. Re-evaluation: stable Disposition discussed with patient/family/significant other: Patient Case discussed with consulting clinician: Hospitalist This note was generated with [employer]ti dictation software. It may contain incorrect words, spelling, and punctuation that were not noted in checking the note before signing. Lab Data Attestation: I reviewed the patient's lab results. Labs: Laboratory Results - last 24 hr 06/03/25 06/03/25 06/03/25 13:04 15:00 15:19 WBC 19.3 H RBC 5.11 Hgb 15.1 Hct 46.2 MCV 90.4 MCH 29.5 MCHC 32.7 RDW Std Deviation 44.3 H RDW Coeff of Uzma 13.4 Plt Count 222 MPV 11.3 Immature Gran % (Auto) 0.600 Neut % (Auto) 88.7 H Lymph % (Auto) 4.0 L [place] % (Auto) 6.1 Eos % (Auto) 0.3 Baso % (Auto) 0.3 Absolute Neuts (auto) 17.1 H Absolute Lymphs (auto) 0.77 L Nucleated RBC % 0 D-Dimer Quant (PE/DVT) 0.27 Sodium 141 Potassium 4.8 Chloride 104 Carbon Dioxide 27.4 Anion Gap 10 BUN 15 Creatinine 0.65 L Estim Creat Clear Calc 142.36 Est GFR (MDRD) Non-Af 119 BUN/Creatinine Ratio 22.9 H Glucose 134 H Lactic Acid 1.2 Calcium 8.5 Total Bilirubin 0.20 Direct Bilirubin < 0.08 AST 20 ALT 9 Alkaline Phosphatase 50 NT pro BNP II 465 H Total Protein 5.3 L Albumin 3.3 L Globulin 2.0 L Procalcitonin 0.03 Urine Color Urine Clarity Urine pH Ur Specific [place] Urine Protein Urine Glucose (UA) Urine Ketones Urine Occult Blood Urine Nitrite Urine Bilirubin Urine Urobilinogen Ur Leukocyte Esterase Urine RBC Urine WBC Ur Squamous Epith Cells Amorphous Sediment Urine Bacteria Urine Mucus Urine Opiates Screen U Buprenorphine Qual Ur Oxycodone Screen Urine Methadone Screen Urine Fentanyl Screen Ur Barbiturates Screen Ur Phencyclidine Scrn Ur Amphetamines Screen U Benzodiazepines Scrn Urine Cocaine Screen U Cannabinoids Screen Ethyl Alcohol < 10.1 06/03/25 15:54 WBC RBC Hgb Hct MCV MCH MCHC RDW Std Deviation RDW Coeff of Uzma Plt Count MPV Immature Gran % (Auto) Neut % (Auto) Lymph % (Auto) [place] % (Auto) Eos % (Auto) Baso % (Auto) Absolute Neuts (auto) Absolute Lymphs (auto) Nucleated RBC % D-Dimer Quant (PE/DVT) Sodium Potassium Chloride Carbon Dioxide Anion Gap BUN Creatinine Estim Creat Clear Calc Est GFR (MDRD) Non-Af BUN/Creatinine Ratio Glucose Lactic Acid Calcium Total Bilirubin Direct Bilirubin AST ALT Alkaline Phosphatase NT pro BNP II Total Protein Albumin Globulin Procalcitonin Urine Color Yellow Urine Clarity Clear Urine pH 7.0 Ur Specific [place] 1.010 Urine Protein Negative Urine Glucose (UA) Normal Urine Ketones Negative Urine Occult Blood Negative Urine Nitrite Negative Urine Bilirubin Negative Urine Urobilinogen Normal Ur Leukocyte Esterase Negative Urine RBC 0 SEEN Urine WBC 0 SEEN Ur Squamous Epith Cells 0-5 SEEN Amorphous Sediment 2+ PHOS Urine Bacteria 0 SEEN Urine Mucus 0 SEEN Urine Opiates Screen NEGATIVE U Buprenorphine Qual PRESUMPTIVE POSITIVE Ur Oxycodone Screen NEGATIVE Urine Methadone Screen NEGATIVE Urine Fentanyl Screen NEGATIVE Ur Barbiturates Screen NEGATIVE Ur Phencyclidine Scrn NEGATIVE Ur Amphetamines Screen NEGATIVE U Benzodiazepines Scrn PRESUMPTIVE POSITIVE Urine Cocaine Screen NEGATIVE U Cannabinoids Screen PRESUMPTIVE POSITIVE Ethyl Alcohol Radiography Diagnostic Testing: Clinical Impression(s) from Imaging Studies Chest X-Ray 06/03/25 14:05 IMPRESSION: COPD. NO ACUTE FINDINGS. Reading Location: [id number] Discharge Plan Triage Chief Complaint: Edema ED Provider: Jimmy Traylor Dx/Rx/DC Orders Clinical Impression: COPD (chronic obstructive pulmonary disease), Hypoxia, Hypotension Instructions: COPD Quit Smoking Prescriptions: No Action fluvoxamine 100 mg tablet 100 mg PO QHS propranolol 20 mg tablet 20 mg PO BID oxcarbazepine 600 mg tablet 1,200 mg PO BID olanzapine 5 mg tablet 5 mg PO QHS buprenorphine-naloxone 8-2 mg tablet, sublingual 1 tab sublingual TID Patient Comments: DISOLVE 2 AND ONE-HALF TABLETS UNDER THE TONGUE DAILY FOR 28 DAYS ondansetron 4 mg tablet,disintegrating 4 mg PO Q8H PRN (Reason: nausea and vomiting) Qty: 30 0RF albuterol sulfate 90 mcg/actuation HFA aerosol inhaler 2 puff inhalation Q6H PRN (Reason: shortness of breath or wheezing) Qty: 6.7 0RF divalproex [Depakote] 500 mg tablet,delayed release (DR/EC) 500 mg PO BID sucralfate 1 gram tablet 1 g PO Q6H Qty: 120 0RF sumatriptan succinate 50 mg tablet 50 mg PO Q2H PRN (Reason: migraine headache) olanzapine [Zyprexa] 5 mg tablet 5 mg PO QHS alprazolam [Xanax] 1 mg tablet 1 mg PO BID prednisone 10 mg tablet 10 mg PO Q12H testosterone 20.25 mg/1.25 gram (1.62 %) gel in metered-dose pump 1 pump topical QDAY Qty: 75 2RF Rx Instructions: apply 1 pump amount over max area of ONE upper arm and shoulder gabapentin 300 mg capsule 300 mg PO BID Qty: 60 0RF magnesium oxide 500 mg capsule 500 mg PO DAILY Qty: 30 1RF dicyclomine 10 mg capsule 10 mg PO BID Qty: 60 1RF alprazolam 1 mg tablet 1 mg PO BID PRN (Reason: anxiety) 30 Days Qty: 60 1RF Primary Care Provider: Meghana Galindo Referrals: Meghana Galindo MD [Primary Care Provider] - 1 Day Activity Restrictions/Additional Instructions: You are requiring oxygen. Your blood pressure was low. You left AGAINST MEDICAL ADVICE. Antibiotics and steroids sent to your pharmacy. If you change your mind, return to the ED for reevaluation for admission. Print Language: Spanish Disposition Disposition: Against Medical Advice Discharge Date/Time: 06/03/25 16:08
[2025-06-03 13:43] LABS: Hematocrit 46.2 % (40-54); Hemoglobin 15.1 g/dL (13.0-16.5); Immature Granulocytes Count 0.120 X10^3/uL (0.0-0.0); Mean Corp Hgb Conc 32.7 g/dL (32-36); Mean Corpuscular Volume 90.4 fL (80-94); Mean Platelet Vol. 11.3 fl (6.2-12.0); NRBC Flagged by Analyzer 0 % (0-5); Platelet Count 222 K/mm3 (150-450); RBC Distribution Width CV 13.4 % (11.6-14.6); RBC Distribution Width SD 44.3 fl (35.1-43.9); Red Blood Count 5.11 M/mm3 (4.6-6.2); White Blood Count 19.3 K/mm3 (4.4-11.0)
[2025-06-03 13:47] LABS: Pro- Brain NATRIURETIC PEPTIDE 465 pg/mL (<=450)
[2025-06-03 13:48] LABS: Anion Gap 10 (5-15); BUN 15 mg/dL (4-19); BUN/Creat Ratio 22.9 RATIO (10-20); Calcium,Total 8.5 mg/dL (7.6-11.0); Carbon Dioxide 27.4 mmol/L (21.0-32.0); Chloride 104 mmol/L (98-108); Estimated Creatinine Clearance 142.36 ml/min (50-250); Glucose 134 mg/dL (70-99); Potassium 4.8 mmol/L (3.3-5.1)
--- NOTE | 2025-06-03 14:05 | RAD_ITS ---
PROCEDURE: CHEST PA AND LATERAL 06/03/2025 REASON FOR EXAM: COUGH TECHNIQUE: CHEST PA AND LATERAL COMPARISON: CT chest 08/18/2023. FINDINGS: Hardware: None. Heart: The heart size is normal. Mediastinum: The mediastinal contour is unremarkable. Lungs: Persistent findings of emphysema/COPD. Bibasilar atelectasis/scarring, greatest in the right lower lung. No focal consolidation, pleural effusion or pneumothorax. Bones: Degenerative changes are identified within the thoracic spine. RAD/Chest PA and Lateral IMPRESSION: COPD. NO ACUTE FINDINGS. Reading Location: [id number]
[2025-06-03 14:12] LABS: D-Dimer Quantitative (DVT/PE) 0.27 FEU/ug/m (0.27-0.49)
[2025-06-03 14:47] VITALS: BP 82/48; PULSE 69; RESP 15; O2SAT 95
--- NOTE | 2025-06-03 14:50 | ED.RN ---
Dr. Traylor notified of BP of 82/49. VO given to hold lasix at this time.
--- NOTE | 2025-06-03 14:51 | ED.RN ---
pt is unaware of home medications
[2025-06-03] MEDS: NORMAL SALINE 999 ML IV (15:24)
[2025-06-03] MEDS: Azithromycin 500 MG in 0.9% Normal Saline (250mL Bag) 250 ML 255 MG IV (15:51)
[2025-06-03 16:02] LABS: Alcohol, Blood (Medical)-Serum < 10.1 mg/dL (<=10.0)
[2025-06-03 16:05] LABS: Mucous, Urine 0 SEEN /hpf (<or=2+); Red Blood Cells-Urine 0 SEEN /hpf (0-5)
--- NOTE | 2025-06-03 16:07 | ED.RN ---
pt. told this RN he wanted to leave against medical advice as his son was coming to stay the night with him. This RN told Dr. Traylor and Dr. Lyons. AMA paperwork signed, PIVs removed. Pt. ambulated out of ER.
[2025-06-03 16:08] LABS: Color, Urine Yellow (Yellow); Glucose, Dipstick Normal (Normal); Ketone-Dipstick Negative (Negative); Leukocyte Esterase-Dipstick Negative /ul (Negative); Nitrite-Dipstick Negative (Negative); Occult Blood-Urine Negative /ul (Negative); Protein-Dipstick Negative (Negative); Specific Gravity, Urine 1.010 (1.002-1.030); Urine Bilirubin Dipstick Negative (Negative)
[2025-06-03 16:09] LABS: Procalcitonin 0.03 ng/mL (<=0.10)
[2025-06-03 16:22] LABS: AST(SGOT) 20 U/L (<=37); Alanine Aminotransfer ALT/SGPT 9 U/L (<=46); Albumin, Serum 3.3 g/dL (3.5-5.0); Alkaline Phosphatase 50 U/L (40-129); Bilirubin, Direct < 0.08 mg/dL (0.00-0.30); Globulin 2.0 g/dL (2.2-4.2)
[2025-06-03 16:40] LABS: Barbiturate Urine NEGATIVE (< 200 ng/mL); Benzodiazepine Urine PRESUMPTIVE POSITIVE (< 200 ng/mL); PCP Urine NEGATIVE (< 25 ng/mL); THC Urine PRESUMPTIVE POSITIVE (< 50 ng/mL)
[2025-06-03 16:57] LABS: Squamous Epithelial Cells - UA 0-5 SEEN /hpf (0-5)
== END 2025-06-03 16:08 | disposition left against medical advice (07) ==
PROVIDERS: Internal Medicine; Emergency Provider Emergency Medicine; PCP Internal Medicine; Referring Provider Emergency Medicine; Visit Provider Emergency Medicine
DX: J44.9 Chronic obstructive pulmonary disease, unspecified (principal); K50.90 Crohn's disease, unspecified, without complications; F31.9 Bipolar disorder, unspecified; R09.02 Hypoxemia; F17.210 Nicotine dependence, cigarettes, uncomplicated; I95.9 Hypotension, unspecified
CPT/HCPCS: 71046; 80048; 80076; 80307; 81001; 82077; 83605; 83880; 84145; 85025; 85379; 87040; 87086; 87088; 87631; 93005; 96365; 96375; 99284; A4216; J1938

== ENCOUNTER 2025-06-03 18:29 | Inpatient (IN) | payer BC, SELFPAY ==
[2025-06-03] VITALS (8 sets, daily range): BP systolic 88–106; BP diastolic 61–74; PULSE 56–85; RESP 13–17; TEMP 36.6–36.9; O2SAT 90–95; BMI 22.8; BMI 22.5
--- OUTSIDE RECORDS SUMMARY | 2025-06-03 18:57 | XMS RPT_ITS | CCD ---
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 Performed By: #### L 500.4100, L503.0105, L501.9985, L500.4050, L3400.4800, L100.0100, L506.1000 ####[facility] [address] [place], [address] Urea nitrogen [Mass/Vol] 19 mg/dL High 7-18 [facility] Comment on above: Performed By: #### L 500.4100, L503.0105, L501.9985, L500.4050, L3400.4800, L100.0100, L506.1000 ####[facility] [address] [place], [address] Eosinophil percentageOrdered By: Josselyn Galindo on 01-05-2025 Eosinophils/100 WBC (Bld) 2.2 % 0-5 [facility] Erythrocyte distribution wid th ratioOrdered By: Josselyn Galindo on 01-05-2025 Erythrocyte distribution width (RBC) [Ratio] 13.4 % 11.6-14.6 [facility] Erythrocyte distribution wid th standard deviationOrdered By: Josselyn Galindo on 01-05-2025 Erythrocyte distribution width (RBC) [Entitic vol] 46.9 fL High 35.1-43.9 [facility] Erythrocyte distribution width (RBC) [Ratio] 46.9 fl High 35.1-43.9 [facility] Estimated glomerular filtrat ion rate (GFR) AmericanOrdered By: Josselyn Galindo on 01-05-2025 Estimated GFR (MDRD) Amer 137 mL/min >60 [facility] Comment on above: GFR Calc Glomerular filtration rate ( GFR) estimationOrdered By: Josselyn Galindo on 01-05-2025 Estimated GFR (MDRD) Non-Af Amer 113 mL/min >60 [facility] Comment on above: Non- GFR Calc GFR/1.73 sq M.predicted among non-blacks MDRD (S/P/Bld) [Vol rate/Area] 113 mL/min/{1.73_m2} >60 [facility] Comment on above: Non- GFR Calc Glucose measurementOrdered B y: Josselyn Galindo on 01-05-2025 Glucose [Mass/Vol] 148 mg/dL High 74-106 [facility] Comment on above: Fasting Glucose resu lt greater than or equal to 126 mg/dL suggests DIABETES MELLITUS per A.D.A. criteria. Hematocrit Auto (Bld) [Volum e fraction]Ordered By: Josselyn Galindo on 01-05-2025 Hematocrit (Bld) [Volume fraction] 46.1 % 40-54 [facility] Hemoglobin A1con 01-05-2025 HbA1c (Bld) [Mass fraction] 5.7 % High 3.8-5.6 [facility] Comment on above: Result Comment: Norm al < 5.7 % Prediabetic 5.7 - 6.4 % Diabetic >or= 6.5 % Please note range changes. Performed By: #### L 500.4100, L503.0105, L501.9985, L500.4050, L3400.4800, L100.0100, L506.1000 ####[facility] [address] [place], [address] Hemoglobin A1c percentageOrd ered By: Josselyn Galindo on 01-05-2025 HbA1c (Bld) [Mass fraction] 5.7 % High 3.8-5.6 [facility] Comment on above: Normal < 5.7 % Predi abetic 5.7 - 6.4 % Diabetic >or= 6.5 % Please note range changes. Hemoglobin measurementOrdere d By: Josselyn Galindo on 01-05-2025 Hemoglobin (Bld) [Mass/Vol] 14.2 g/dL 13.0-16.5 [facility] High density lipoprotein (HD L) measurementOrdered By: Josselyn Galindo on 01-05-2025 Cholesterol in HDL [Mass/Vol] 38 mg/dL Low >40 [facility] Comment on above: The drugs N-Acetylcy steine and Metamizole may falsely depress this assay. Reference Range HDL <40 mg/dL Low HDL Cholesterol HDL >or= 60 mg/dL High HDL Cholesterol Immature granulocytes/100 WB C Auto (Bld)Ordered By: Josselyn Galindo on 01-05-2025 Immature granulocytes/100 WBC (Bld) 1.100 % High 0.0-0.9 [facility] Comment on above: IG% - Immature Granu locytes (promyelocytes, myelocytes and metamyelocytes) > 1% indicates that a LEFT SHIFT is Present. Laboratory - Chemistry and C hemistry - challengeOrdered By: Josselyn Galindo on 01-05-2025 AST [Catalytic activity/Vol] 4 U/L Low 15-37 [facility] Lipid Profileon 01-05-2025 Cholesterol [Mass/Vol] 158 mg/dL Normal 200 [facility] Comment on above: Result Comment: <200 mg/dL Desirable 200-240 mg/dL Borderline >240 mg/dL High Risk Performed By: #### L 500.4100, L503.0105, L501.9985, L500.4050, L3400.4800, L100.0100, L506.1000 ####[facility] [address] [place], [address] Cholesterol in HDL [Mass/Vol] 38 mg/dL Low [facility] Comment on above: Result Comment: The drugs N-Acetylcysteine and Metamizole may falsely depress this assay. Reference Range HDL <40 mg/dL Low HDL Cholesterol HDL >or= 60 mg/dL High HDL Cholesterol Performed By: #### L 500.4100, L503.0105, L501.9985, L500.4050, L3400.4800, L100.0100, L506.1000 ####[facility] [address] [place], [address] Cholesterol in LDL [Mass/Vol] 81 mg/dL Normal 0-130 [facility] Comment on above: Performed By: #### L 500.4100, L503.0105, L501.9985, L500.4050, L3400.4800, L100.0100, L506.1000 ####[facility] [address] [place], [address] Cholesterol in VLDL [Mass/Vol] 39 mg/dL Normal 5-40 [facility] Comment on above: Performed By: #### L 500.4100, L503.0105, L501.9985, L500.4050, L3400.4800, L100.0100, L506.1000 ####[facility] [address] [place], [address] Triglyceride [Mass/Vol] 195 mg/dL Normal [facility] Comment on above: Result Comment: The drugs N-Acetylcysteine and Metamizole may falsely depress this assay. Serum Triglycerides Reference Interval Normal <150 mg/dL Borderline high 150 - 199 mg/dL High 200 - 499 mg/dL Very High > or = 500 mg/dL Performed By: #### L 500.4100, L503.0105, L501.9985, L500.4050, L3400.4800, L100.0100, L506.1000 ####[facility] [address] [place], [place], [address] Low density lipoprotein (LDL ) cholesterol measurementOrdered By: Josselyn Galindo on 01-05-2025 Cholesterol in LDL [Mass/Vol] 81 mg/dL 0-130 [facility] Lymphocytes Auto (Unsp spec) [#/Vol]Ordered By: Josselyn Galindo on 01-05-2025 Lymphocytes (Bld) [#/Vol] 2.39 10*3/uL 0.83-4.51 [facility] Lymphocytes/100 WBC Auto (Un sp spec)Ordered By: Josselyn Galindo on 01-05-2025 Lymphocytes/100 WBC (Bld) 26.8 % 19-41 [facility] MCV (mean corpuscular volume ) determinationOrdered By: Josselyn Galindo on 01-05-2025 MCV (RBC) [Entitic vol] 94.7 fL High 80-94 [facility] Mean corpuscular hemoglobin (MCH) determinationOrdered By: Josselyn Galindo on 01-05-2025 MCH (RBC) [Entitic mass] 29.2 pg 27.0-32.0 [facility] Mean corpuscular hemoglobin concentration (MCHC) determinationOrdered By: Josselyn Galindo on 01-05-2025 MCHC (RBC) [Mass/Vol] 30.8 g/dL Low 32-36 [facility] Mean platelet volume determi nationOrdered By: Josselyn Galindo on 01-05-2025 Platelet mean volume (Bld) [Entitic vol] 10.8 fL 6.2-12.0 [facility] Monocyte percentageOrdered B y: Josselyn Galindo on 01-05-2025 Monocytes/100 WBC (Bld) 11.4 % High 0-10 [facility] Neutrophil percentageOrdered By: Josselynderick Galindo on 01-05-2025 Neutrophils/100 WBC (Bld) 57.9 % 47-70 [facility] Nucleated red blood cell per centageOrdered By: Josselyn Galindo on 01-05-2025 Nucleated RBC/100 WBC (Bld) [Ratio] 0 % 0-5 [facility] Platelet countOrdered By: Benjamin Galindo on 01-05-2025 Platelets (Bld) [#/Vol] 182 10*3/uL 150-450 [facility] Potassium measurementOrdered By: Josselyn Galindo on 01-05-2025 Potassium [Moles/Vol] 3.4 mmol/L Low 3.5-5.1 [facility] RBC Auto (Bld) [#/Vol]Ordere d By: Josselyn Galindo on 01-05-2025 RBC (Bld) [#/Vol] 4.87 10*6/uL 4.6-6.2 [facility] Serum anion gap measurementO rdered By: Josselyn Galindo on 01-05-2025 Anion gap [Moles/Vol] 5 mmol/L 5-15 [facility] Serum globulin measurementOr dered By: Josselyn Galindo on 01-05-2025 Globulin (S) [Mass/Vol] 3.0 g/dL 2.2-4.2 [facility] Serum or plasma alanine delong otransferase (ALT) measurementOrdered By: Josselyn Galindo on 01-05-2025 ALT [Catalytic activity/Vol] 22 U/L 16-61 [facility] Serum or plasma albumin cristina urement (mass/volume)Ordered By: Josselyn Galindo on 01-05-2025 Albumin [Mass/Vol] 2.8 g/dL Low 3.2-5.0 [facility] Serum or plasma alkaline leland sphatase measurementOrdered By: Josselyn Galindo on 01-05-2025 ALP [Catalytic activity/Vol] 63 U/L 45-117 [facility] Serum or plasma calcium cristina urement (mass/volume)Ordered By: Josselyn Galindo on 01-05-2025 Calcium [Mass/Vol] 8.3 mg/dL Low 8.5-10.1 [facility] Serum or plasma cholesterol measurement (mass/volume)Ordered By: Josselyn Galindo on 01-05-2025 Cholesterol [Mass/Vol] 158 mg/dL <200 [facility] Comment on above: <200 mg/dL Desirable 200-240 mg/dL Borderline >240 mg/dL High Risk Serum or plasma creatinine m easurement (mass/volume)Ordered By: Josselyn Galindo on 01-05-2025 Creatinine [Mass/Vol] 0.79 mg/dL 0.70-1.30 [facility] Comment on above: The validity of the calculated GFR & GFRAA in patients over 70 years has not been determined. Clinical correlation is essential. Serum or plasma free testost erone measurement (mass/volume)Ordered By: Josselyn Galindo on 01-05-2025 Testosterone Free [Mass/Vol] 0.9 pg/mL Low 6.8-21.5 [facility] Comment on above: Performed at: [address] [id number] Director: Debby Cruz MD, Phone: [phone] Serum or plasma urea nitroge n measurement (mass/volume)Ordered By: Josselyn Galindo on 01-05-2025 Urea nitrogen [Mass/Vol] 19 mg/dL High 7-18 [facility] Sodium levelOrdered By: Violette Galindo on 01-05-2025 Sodium [Moles/Vol] 147 mmol/L High 136-145 [facility] Testosterone Free [Mass/Vol] Ordered By: Josselyn Galindo on 01-05-2025 Free Testosterone 0.9 pg/mL Low 6.8-21.5 [facility] Comment on above: Performed at: [facility] [address] [id number] Director: Debby Cruz MD, Phone: [phone] Total proteinOrdered By: Omar Galindo on 01-05-2025 Protein [Mass/Vol] 5.8 g/dL Low 6.4-8.2 [facility] Triglycerides measurementOrd ered By: Josselyn Galindo on 01-05-2025 Triglyceride [Mass/Vol] 195 mg/dL <199 [facility] Comment on above: The drugs N-Acetylcy steine and Metamizole may falsely depress this assay.Serum Triglycerides Reference Interval Normal <150 mg/dL Borderline high 150 - 199 mg/dL High 200 - 499 mg/dL Very High > or = 500 mg/dL Very low density lipoprotein (VLDL) cholesterol measurementOrdered By: Josselyn Galindo on 01-05-2025 Very low density lipoprotein (VLDL) cholesterol measurement 39 mg/dL 5-40 [facility] VLDL Cholesterol 39 mg/dL 5-40 [facility] Vitamin B12on 01-05-2025 Cobalamin (Vitamin B12) [Mass/Vol] 366 pg/mL Normal 211-911 [facility] Comment on above: Performed By: #### L 500.4100, L503.0105, L501.9985, L500.4050, L3400.4800, L100.0100, L506.1000 ####[facility] [address] [place], [address] Vitamin B12 measurementOrder ed By: Josselyn Galindo on 01-05-2025 Cobalamin (Vitamin B12) [Mass/Vol] 366 pg/mL 211-911 [facility] Vitamin D,25 Hydroxyon 01-05 Vitamin D 25-OH 27.3 ng/mL Normal [facility] Comment on above: Result Comment: Kelly min D 25(OH) Status Range Deficiency <20 ng/mL (50nmol/L) Insufficiency 20 - 30 ng/mL (50 - 75 nmol/L) Sufficiency 30 - 100 ng/mL (75 - 250 nmol/L) Toxicity >100 ng/mL (>250 nmol/L) Performed By: #### L 500.4100, L503.0105, L501.9985, L500.4050, L3400.4800, L100.0100, L506.1000 ####[facility] [address] [place], [address] White blood cell (WBC) count Ordered By: Josselyn Galindo on 01-05-2025 WBC (Bld) [#/Vol] 8.9 10*3/uL 4.4-11.0 [facility] Ammoniaon 12-28-2024 Ammonia (P) [Moles/Vol] 22.0 umol/L Normal 11-32 [facility] Comment on above: Performed By: #### L 501.5200, L500.3400, L500.2500, L503.5510 #### [facility] [address] [place], [address] Basic Metabolic Profile (BMP )on 12-28-2024 BUN/CRE 21.6 RATIO High - [facility] Comment on above: Performed By: #### L 501.5200, L500.3400, L500.2500, L503.5510 #### [facility] [address] [place], [address] CA,Total 8.4 mg/dL Low 8.5-10.1 [facility] Comment on above: Performed By: #### L 501.5200, L500.3400, L500.2500, L503.5510 #### [facility] [address] [place], [address] Chloride [Moles/Vol] 104 mmol/L Normal 98-107 [facility] Comment on above: Performed By: #### L 501.5200, L500.3400, L500.2500, L503.5510 #### [facility] [address] [place], [address] CO2 [Moles/Vol] 29.0 mmol/L Normal 21.0-32.0 [facility] Comment on above: Performed By: #### L 501.5200, L500.3400, L500.2500, L503.5510 #### [facility] [address] [place], [address] Creatinine [Mass/Vol] 0.74 mg/dL Normal 0.70-1.30 [facility] Comment on above: Result Comment: The validity of the calculated GFR GFRAA in patients over 70 years has not been determined. Clinical correlation is essential. Performed By: #### L 501.5200, L500.3400, L500.2500, L503.5510 #### [facility] [address] [place], [address] EST GFR - AA 148 mL/min Normal >60 [facility] Comment on above: Result Comment: Afri can [place]ran GFR Calc Performed By: #### L 501.5200, L500.3400, L500.2500, L503.5510 #### [facility] [address] [place], [address] GAP 6 Normal 5-15 [facility] Comment on above: Performed By: #### L 501.5200, L500.3400, L500.2500, L503.5510 #### [facility] [address] [place], [address] GFR/1.73 sq M.predicted among non-blacks MDRD (S/P/Bld) [Vol rate/Area] 122 mL/min/{1.73_m2} Normal >60 [facility] Comment on above: Result Comment: Non- GFR Calc Performed By: #### L 501.5200, L500.3400, L500.2500, L503.5510 #### [facility] [address] [place], [address] Glucose [Mass/Vol] 125 mg/dL High 74-106 [facility] Comment on above: Result Comment: Fast ing Glucose result from 100 to 125 mg/dL suggests IMPAIRED HOMEOSTASIS per A.D.A. criteria. Performed By: #### L 501.5200, L500.3400, L500.2500, L503.5510 #### [facility] [address] [place], [address] Potassium [Moles/Vol] 4.6 mmol/L Normal 3.5-5.1 [facility] Comment on above: Performed By: #### L 501.5200, L500.3400, L500.2500, L503.5510 #### [facility] [address] [place], [address] Sodium [Moles/Vol] 138 mmol/L Normal 136-145 [facility] Comment on above: Performed By: #### L 501.5200, L500.3400, L500.2500, L503.5510 #### [facility] [address] [place], [address] Urea nitrogen [Mass/Vol] 16 mg/dL Normal 7-18 [facility] Comment on above: Performed By: #### L 501.5200, L500.3400, L500.2500, L503.5510 #### [facility] [address] [place], [address] Bilirubin directOrdered By: Jovita Jimenez on 12-28-2024 Bilirubin.direct [Mass/Vol] 0.13 mg/dL 0.00-0.30 [facility] Bilirubin, totalOrdered By: Jovita Jimenez on 12-28-2024 Bilirubin [Mass/Vol] 0.30 mg/dL 0.20-1.00 [facility] Comment on above: For patients on eltr ombopag therapy, use of Dimension [place] TBIL is not recommended. Blood urea nitrogen (BUN)/cr eatinine ratioOrdered By: Jovita Jimenez on 12-28-2024 Urea nitrogen/Creatinine [Mass ratio] 21.6 mg/mg High 10-20 [facility] Carbon dioxide measurementOr dered By: Jovita Jimenez on 12-28-2024 CO2 [Moles/Vol] 29.0 mmol/L 21.0-32.0 [facility] Chloride measurementOrdered By: Jovita Jimenez on 12-28-2024 Chloride [Moles/Vol] 104 mmol/L 98-107 [facility] Estimated glomerular filtrat ion rate (GFR) AmericanOrdered By: Jovita Jimenez on 12-28-2024 Estimated GFR (MDRD) Amer 148 mL/min >60 [facility] Comment on above: GFR Calc Gastroenterology Visit Repor ton 12-28-2024 Gastroenterology Visit Report [facility] [address] [place] [address] OFFICE VISIT Date of Service: 12/28/24 MR#: [id number] Acct: [id number] Name: JOSE MCNAMARA Rep #: [id number] : 1980 Provider: Keny Guevara DO Age/Sex: 44/M Location: [facility] Status: Signed Intake Vital Signs 10/04/24 10:44 [...] show. OV (more content not included)... Normal [facility] Glomerular filtration rate ( GFR) estimationOrdered By: Jovita Jimenez on 12-28-2024 Estimated GFR (MDRD) Non-Af Amer 122 mL/min >60 [facility] Comment on above: Non- GFR Calc GFR/1.73 sq M.predicted among non-blacks MDRD (S/P/Bld) [Vol rate/Area] 122 mL/min/{1.73_m2} >60 [facility] Comment on above: Non- GFR Calc Glucose measurementOrdered B y: Jovita Jimenez on 12-28-2024 Glucose [Mass/Vol] 125 mg/dL High 74-106 [facility] Comment on above: Fasting Glucose resu lt from 100 to 125 mg/dL suggests IMPAIRED HOMEOSTASIS per A.D.A. criteria. Laboratory - Chemistry and C hemistry - challengeOrdered By: Jovita Jimenez on 12-28-2024 AST [Catalytic activity/Vol] 19 U/L 15-37 [facility] Liver Profileon 12-28-2024 Albumin [Mass/Vol] 3.3 g/dL Normal 3.2-5.0 [facility] Comment on above: Performed By: #### L 501.5200, L500.3400, L500.2500, L503.5510 ####[facility] [address] [place], [address] ALK P 83 U/L Normal 45-117 [facility] Comment on above: Performed By: #### L 501.5200, L500.3400, L500.2500, L503.5510 ####[facility] [id number] [place], [address] ALT [Catalytic activity/Vol] 48 U/L Normal 16-61 [facility] Comment on above: Performed By: #### L 501.5200, L500.3400, L500.2500, L503.5510 ####[facility] [address] [place], [address] AST [Catalytic activity/Vol] 19 U/L Normal 15-37 [facility] Comment on above: Performed By: #### L 501.5200, L500.3400, L500.2500, L503.5510 ####[facility] [address] [place], [address] Bilirubin [Mass/Vol] 0.30 mg/dL Normal 0.20-1.00 [facility] Comment on above: Result Comment: For patients on eltrombopag therapy, use of Dimension [place] TBIL is not recommended. Performed By: #### L 501.5200, L500.3400, L500.2500, L503.5510 ####[facility] [address] [place], [address] Bilirubin.direct [Mass/Vol] 0.13 mg/dL Normal 0.00-0.30 [facility] Comment on above: Performed By: #### L 501.5200, L500.3400, L500.2500, L503.5510 ####[facility] [address] [place], [address] Globulin (S) [Mass/Vol] 3.2 g/dL Normal 2.2-4.2 [facility] Comment on above: Performed By: #### L 501.5200, L500.3400, L500.2500, L503.5510 ####[facility] [address] [place], [address] T PROT 6.5 g/dL Normal 6.4-8.2 [facility] Comment on above: Performed By: #### L 501.5200, L500.3400, L500.2500, L503.5510 ####[facility] [address] [place], [address] Magnesiumon 12-28-2024 Magnesium [Mass/Vol] 2.2 mg/dL Normal 1.6-2.6 [facility] Comment on above: Performed By: #### L 501.5200, L500.3400, L500.2500, L503.5510 ####[facility] [address] [place], [address] Magnesium measurementOrdered By: Jovita Jimenez on 12-28-2024 Magnesium [Mass/Vol] 2.2 mg/dL 1.6-2.6 [facility] Potassium measurementOrdered By: Jovita Jimenez on 12-28-2024 Potassium [Moles/Vol] 4.6 mmol/L 3.5-5.1 [facility] Serum anion gap measurementO rdered By: Jovita Jimenez on 12-28-2024 Anion gap [Moles/Vol] 6 mmol/L 5-15 [facility] Serum globulin measurementOr dered By: Jovita Jimenez on 12-28-2024 Globulin (S) [Mass/Vol] 3.2 g/dL 2.2-4.2 [facility] Serum or plasma alanine delong otransferase (ALT) measurementOrdered By: Jovita Jimenez on 12-28-2024 ALT [Catalytic activity/Vol] 48 U/L 16-61 [facility] Serum or plasma albumin cristina urement (mass/volume)Ordered By: Jovita Jimenez on 12-28-2024 Albumin [Mass/Vol] 3.3 g/dL 3.2-5.0 [facility] Serum or plasma alkaline leland sphatase measurementOrdered By: Jovita Jimenez on 12-28-2024 ALP [Catalytic activity/Vol] 83 U/L 45-117 [facility] Serum or plasma calcium cristina urement (mass/volume)Ordered By: Jovita Jimenez on 12-28-2024 Calcium [Mass/Vol] 8.4 mg/dL Low 8.5-10.1 [facility] Serum or plasma creatinine m easurement (mass/volume)Ordered By: Jovita Jimenez on 12-28-2024 Creatinine [Mass/Vol] 0.74 mg/dL 0.70-1.30 [facility] Comment on above: The validity of the calculated GFR & GFRAA in patients over 70 years has not been determined. Clinical correlation is essential. Serum or plasma urea nitroge n measurement (mass/volume)Ordered By: Jovita Jimenez on 12-28-2024 Urea nitrogen [Mass/Vol] 16 mg/dL 7-18 [facility] Sodium levelOrdered By: Eric Jimenez on 12-28-2024 Sodium [Moles/Vol] 138 mmol/L 136-145 [facility] Total proteinOrdered By: Anna Jimenez on 12-28-2024 Protein [Mass/Vol] 6.5 g/dL 6.4-8.2 [facility] Venous blood ammonia measure mentOrdered By: Jovita Jimenez on 12-28-2024 Ammonia (P) [Moles/Vol] 22.0 umol/L [facility] Internal Medicine Office Vis itomeli 12-26-2024 Internal Medicine Office Visit [facility] [address] [place] [address] [place] [address] OFFICE VISIT Date of Service: 12/27/24 MR#: [id number] Acct: [id number] Name: JOSE MCNAMARA Rep #: [id number] : 1980 Provider: Dr. 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 went to [facility] and they fixed ingrown toenail PFSH Medical History (Updated 12/27/24 @ 11:13 [...] friend(s) current occupational status: employed current occupation: [employer], on FMLA currently due to abdominal problems [...] to qu (more content not included)... Normal [facility] Gastroenterology Visit Repor ton 10-04-2024 Gastroenterology Visit Report [facility] [address] [place] [address] OFFICE VISIT Date of Service: 10/04/24 MR#: [id number] Acct: [id number] Name: JOSE MCNAMARA Rep #: [id number] : 1980 Provider: Keny Guevara DO Age/Sex: 44/M Location: [facility] [place] Status: Signed Intake Vital Signs 05/24/24 07:36 [...] mcg PO BID PRN 10/04/24 History (Amitiza) [facility] Medical History Pain Crohn's disease Sjogren's disease [...] friend(s) current occupational status: employed current occupation: [employer], on Gingr currently due to abdominal problems Smoking Status: [...] with promethazi (more content not included)... Normal [facility] Upper Ext No Joint W/WO Cont on 09-21-2024 Upper Ext No Joint W/WO Cont [facility] Imaging Services [address] [place], [place] [address] Upper Ext No Joint W/WO Cont MR#: [id number] Acct: [id number] Name: JOSE MCNAMARA Rep #: [id number] : 1980 M 44 From: Matt Roy MD PCP: Dr. Josselyn Galindo MD Status: REG CLI Study: Upper Ext No Joint W/WO Cont Date of Exam: Exam# [id number] Ordering Dr: Polly Aviles DO [id number] STUDY: MRI RIGHT HAND, WITHOUT AND WITH IV CONTRAST REASON FOR EXAM: Male, 44 years old. 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 TECHNIQUE: Standardized fat and water weighted pulse [...] 14:32 EST Reading Location ID and State: [address] [place] [address] , Service support , CC: Dr. Josselyn Galindo MD; Dr. 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 [place], [place], [id number] Absolute Neut 8.3 X10 3/uL High 2.0-7.7 [facility] Comment on above: Performed By: #### L 501.7900, L500.4050, L100.0100, L501.8100 ####[facility] [address] [place], [address] Basophils/100 WBC (Bld) 0.7 % Normal 0-1 [facility] Comment on above: Performed By: #### L 501.7900, L500.4050, L100.0100, L501.8100 ####[facility] [address] [place], [address] Eosinophils/100 WBC (Bld) 1.6 % Normal 0-5 [facility] Comment on above: Performed By: #### L 501.7900, L500.4050, L100.0100, L501.8100 ####[facility] [address] [place], [address] Erythrocyte distribution width (RBC) [Ratio] 13.7 % Normal 11.6-14.6 [facility] Comment on above: Performed By: #### L 501.7900, L500.4050, L100.0100, L501.8100 ####[facility] [address] [place], [address] Hematocrit (Bld) [Volume fraction] 49.9 % Normal 40-54 [facility] Comment on above: Performed By: #### L 501.7900, L500.4050, L100.0100, L501.8100 ####[facility] [address] [place], [address] Hemoglobin (Bld) [Mass/Vol] 15.7 g/dL Normal 13.0-16.5 [facility] Comment on above: Performed By: #### L 501.7900, L500.4050, L100.0100, L501.8100 ####[facility] [address] [place], [address] IG% 0.600 Normal 0.0-0.9 [facility] Comment on above: Result Comment: IG% - Immature Granulocytes (promyelocytes, myelocytes and metamyelocytes) > 1% indicates that a LEFT SHIFT is Present. Performed By: #### L 501.7900, L500.4050, L100.0100, L501.8100 ####[facility] [address] [place], [address] Lymphocytes/100 WBC (Bld) 18.1 % Low 19-41 [facility] Comment on above: Performed By: #### L 501.7900, L500.4050, L100.0100, L501.8100 ####[facility] [address] [place], [address] MCH (RBC) [Entitic mass] 28.1 pg Normal 27.0-32.0 [facility] Comment on above: Performed By: #### L 501.7900, L500.4050, L100.0100, L501.8100 ####[facility] [address] [place], [address] MCHC (RBC) [Mass/Vol] 31.5 g/dL Low 32-36 [facility] Comment on above: Performed By: #### L 501.7900, L500.4050, L100.0100, L501.8100 ####[facility] [address] [place], [address] MCV (RBC) [Entitic vol] 89.4 fL Normal 80-94 [facility] Comment on above: Performed By: #### L 501.7900, L500.4050, L100.0100, L501.8100 ####[facility] [address] [place], [address] Monocytes/100 WBC (Bld) 7.4 % Normal 0-10 [facility] Comment on above: Performed By: #### L 501.7900, L500.4050, L100.0100, L501.8100 ####[facility] [address] [place], [address] Neutrophils/100 WBC (Bld) 71.6 % High 47-70 [facility] Comment on above: Performed By: #### L 501.7900, L500.4050, L100.0100, L501.8100 ####[facility] [address] [place], [address] Nucleated RBC (Bld) [#/Vol] 0 10*3/uL Normal 0-5 [facility] Comment on above: Performed By: #### L 501.7900, L500.4050, L100.0100, L501.8100 ####[facility] [address] [place], [address] Platelet mean volume (Bld) [Entitic vol] 11.4 fL Normal 6.2-12.0 [facility] Comment on above: Performed By: #### L 501.7900, L500.4050, L100.0100, L501.8100 ####[facility] [address] [place], [address] Platelets (Bld) [#/Vol] 188 10*3/uL Normal 150-450 [facility] Comment on above: Performed By: #### L 501.7900, L500.4050, L100.0100, L501.8100 ####[facility] [address] [place], [address] RBC (Bld) [#/Vol] 5.58 10*6/uL Normal 4.6-6.2 [facility] Comment on above: Performed By: #### L 501.7900, L500.4050, L100.0100, L501.8100 ####[facility] [address] [place], [address] RDW SD 45.4 fl High 35.1-43.9 [facility] Comment on above: Performed By: #### L 501.7900, L500.4050, L100.0100, L501.8100 ####[facility] [address] [place], [address] WBC (Bld) [#/Vol] 11.6 10*3/uL High 4.4-11.0 [facility] Comment on above: Performed By: #### L 501.7900, L500.4050, L100.0100, L501.8100 ####[facility] [address] [place], [address] Carbamazepine (Tegretol)on 1 CARBAMAZEPINE < 0.5 Low 4.0-12.0 [facility] Comment on above: Performed By: #### L 501.7900, L500.4050, L100.0100, L501.8100 ####[facility] [address] [place], [address] Comprehensive Metabolic Prof ilon 08-29-2024 Albumin [Mass/Vol] 3.1 g/dL Low 3.2-5.0 [facility] Comment on above: Performed By: #### L 501.7900, L500.4050, L100.0100, L501.8100 ####[facility] [address] [place], [address] Albumin/Globulin [Mass ratio] 1.0 {ratio} Normal 0.9-2.4 [facility] Comment on above: Performed By: #### L 501.7900, L500.4050, L100.0100, L501.8100 ####[facility] [address] [place], [address] ALK P 65 U/L Normal 45-117 [facility] Comment on above: Performed By: #### L 501.7900, L500.4050, L100.0100, L501.8100 ####[facility] [address] [place], [address] ALT [Catalytic activity/Vol] 9 U/L Low 16-61 [facility] Comment on above: Performed By: #### L 501.7900, L500.4050, L100.0100, L501.8100 ####[facility] [address] [place], [address] AST [Catalytic activity/Vol] 5 U/L Low 15-37 [facility] Comment on above: Performed By: #### L 501.7900, L500.4050, L100.0100, L501.8100 ####[facility] [address] [place], [address] Bilirubin [Mass/Vol] 0.20 mg/dL Normal 0.20-1.00 [facility] Comment on above: Result Comment: For patients on eltrombopag therapy, use of Dimension [place] TBIL is not recommended. Performed By: #### L 501.7900, L500.4050, L100.0100, L501.8100 ####[facility] [address] [place], [address] BUN/CRE 24.3 RATIO High 10-20 [facility] Comment on above: Performed By: #### L 501.7900, L500.4050, L100.0100, L501.8100 ####[facility] [address] [place], [address] CA,Total 8.5 mg/dL Normal 8.5-10.1 [facility] Comment on above: Performed By: #### L 501.7900, L500.4050, L100.0100, L501.8100 ####[facility] [address] [place], [address] Chloride [Moles/Vol] 106 mmol/L Normal 98-107 [facility] Comment on above: Performed By: #### L 501.7900, L500.4050, L100.0100, L501.8100 ####[facility] [address] [place], [address] CO2 [Moles/Vol] 31.0 mmol/L Normal 21.0-32.0 [facility] Comment on above: Performed By: #### L 501.7900, L500.4050, L100.0100, L501.8100 ####[facility] [address] [place], [address] Creatinine [Mass/Vol] 0.70 mg/dL Normal 0.70-1.30 [facility] Comment on above: Result Comment: The validity of the calculated GFR GFRAA in patients over 70 years has not been determined. Clinical correlation is essential. Performed By: #### L 501.7900, L500.4050, L100.0100, L501.8100 ####[facility] [address] [place], [address] EST GFR - AA 158 mL/min Normal >60 [facility] Comment on above: Result Comment: Afri can Andorran GFR Calc Performed By: #### L 501.7900, L500.4050, L100.0100, L501.8100 ####[facility] [address] [place], [address] GAP 6 Normal 5-15 [facility] Comment on above: Performed By: #### L 501.7900, L500.4050, L100.0100, L501.8100 ####[facility] [address] [place], [address] GFR/1.73 sq M.predicted among non-blacks MDRD (S/P/Bld) [Vol rate/Area] 131 mL/min/{1.73_m2} Normal >60 [facility] Comment on above: Result Comment: Non- GFR Calc Performed By: #### L 501.7900, L500.4050, L100.0100, L501.8100 ####[facility] [address] [place], [address] Globulin (S) [Mass/Vol] 3.0 g/dL Normal 2.2-4.2 [facility] Comment on above: Performed By: #### L 501.7900, L500.4050, L100.0100, L501.8100 ####[facility] [address] [place], [address] Glucose [Mass/Vol] 123 mg/dL High 74-106 [facility] Comment on above: Result Comment: Fast ing Glucose result from 100 to 125 mg/dL suggests IMPAIRED HOMEOSTASIS per A.D.A. criteria. Performed By: #### L 501.7900, L500.4050, L100.0100, L501.8100 ####[facility] [address] [place], [address] Potassium [Moles/Vol] 4.1 mmol/L Normal 3.5-5.1 [facility] Comment on above: Performed By: #### L 501.7900, L500.4050, L100.0100, L501.8100 ####[facility] [address] [place], [address] Sodium [Moles/Vol] 142 mmol/L Normal 136-145 [facility] Comment on above: Performed By: #### L 501.7900, L500.4050, L100.0100, L501.8100 ####[facility] [address] [place], [address] T PROT 6.1 g/dL Low 6.4-8.2 [facility] Comment on above: Performed By: #### L 501.7900, L500.4050, L100.0100, L501.8100 ####[facility] [address] [place], [address] Urea nitrogen [Mass/Vol] 17 mg/dL Normal 7-18 [facility] Comment on above: Performed By: #### L 501.7900, L500.4050, L100.0100, L501.8100 ####[facility] [address] [place], [address] Valproic Acid (Depakene) Lev subhash 08-29-2024 VALPROIC ACID 78 ug/mL Normal 50-100 [facility] Comment on above: Performed By: #### L 501.7900, L500.4050, L100.0100, L501.8100 ####[facility] [address] [place], [address] Brain W/WO Contraston 2023 Brain W/WO Contrast [facility] Imaging Services [address] [place] [place] [address] Brain W/WO Contrast MR#: [id number] Acct: [id number] Name: JOSE MCNAMARA Rep #: [id number] : 1980 M 44 From: Logan Causey MD PCP: Dr. 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 Josselyn Galindo MD Fire Production Operator: Signed Normal [facility] Absolute lymphocyte countOrd ered By: Elinameli Chávez on 01-11-2024 Lymphocytes Auto (Unsp spec) [#/Vol] 2.78 10*3/uL 0.83-4.51 [facility] Automated lymphocyte count a s percentage of total leukocytesOrdered By: Elinameli Chávez on 01-11-2024 Lymphocytes/100 WBC Auto (Unsp spec) 29.7 % 19-41 [facility] Basophil percentageOrdered B y: Elina Saira on 01-11-2024 Basophils/100 WBC (Bld) 0.4 % 0-1 [facility] Bilirubin [Mass/Vol] 0.20 mg/dL 0.20-1.00 [facility] Comment on above: For patients on eltr ombopag therapy, use of Dimension [place] TBIL is not recommended. Chloride [Moles/Vol] 109 mmol/L 98-107 [facility] Cholesterol [Mass/Vol] 145 mg/dL <200 [facility] Comment on above: <200 mg/dL Desirable 200-240 mg/dL Borderline >240 mg/dL High Risk Eosinophils/100 WBC (Bld) 1.8 % 0-5 [facility] Glucose [Mass/Vol] 94 mg/dL 74-106 [facility] Hemoglobin (Bld) [Mass/Vol] 15.7 g/dL 13.0-16.5 [facility] Monocytes/100 WBC (Bld) 8.4 % 0-10 [facility] Neutrophils (Bld) [#/Vol] 5.5 10*3/uL 2.0-7.7 [facility] Neutrophils/100 WBC (Bld) 59.4 % 47-70 [facility] Potassium [Moles/Vol] 4.5 mmol/L 3.5-5.1 [facility] Protein [Mass/Vol] 7.1 g/dL 6.4-8.2 [facility] Sodium [Moles/Vol] 142 mmol/L 136-145 [facility] Triglyceride [Mass/Vol] 60 mg/dL <199 [facility] Comment on above: The drugs N-Acetylcy steine and Metamizole may falsely depress this assay.Serum Triglycerides Reference Interval Normal <150 mg/dL Borderline high 150 - 199 mg/dL High 200 - 499 mg/dL Very High > or = 500 mg/dL WBC (Bld) [#/Vol] 9.4 10*3/uL 4.4-11.0 [facility] Determination of erythrocyte mean corpuscular volume (MCV)Ordered By: Elina Chávez on 01-11-2024 MCV (RBC) [Entitic vol] 85.9 fL 80-94 [facility] Erythrocyte distribution wid th ratioOrdered By: Elina Chávez on 01-11-2024 Erythrocyte distribution width (RBC) [Ratio] 13.1 % 11.6-14.6 [facility] Erythrocyte distribution wid th standard deviationOrdered By: Elina Chávez on 01-11-2024 Erythrocyte distribution width (RBC) [Entitic vol] 41.0 fL 35.1-43.9 [facility] Hematocrit Auto (Bld) [Volum e fraction]Ordered By: Elina Chávez on 01-11-2024 Hematocrit (Bld) [Volume fraction] 48.7 % 40-54 [facility] Immature granulocytes/100 WB C Auto (Bld)Ordered By: Elina Chávez on 01-11-2024 Immature granulocytes/100 WBC (Bld) 0.300 % 0.0-0.9 [facility] Comment on above: IG% - Immature Granu locytes (promyelocytes, myelocytes and metamyelocytes) > 1% indicates that a LEFT SHIFT is Present. Laboratory - Chemistry and C hemistry - challengeOrdered By: Elina Chávez on 01-11-2024 Albumin/Globulin [Mass ratio] 1.0 {ratio} 0.9-2.4 [facility] ALP [Catalytic activity/Vol] 115 U/L 45-117 [facility] ALT [Catalytic activity/Vol] 21 U/L 16-61 [facility] Cholesterol in HDL [Mass/Vol] 36 mg/dL >40 [facility] Comment on above: The drugs N-Acetylcy steine and Metamizole may falsely depress this assay. Reference Range HDL <40 mg/dL Low HDL Cholesterol HDL >or= 60 mg/dL High HDL Cholesterol Cholesterol in LDL [Mass/Vol] 97 mg/dL 0-130 [facility] CO2 [Moles/Vol] 32.0 mmol/L 21.0-32.0 [facility] Globulin (S) [Mass/Vol] 3.5 g/dL 2.2-4.2 [facility] Urea nitrogen/Creatinine [Mass ratio] 24.4 mg/mg 10-20 [facility] Laboratory - Hematology and Cell countsOrdered By: Elina Chávez on 01-11-2024 MCH (RBC) [Entitic mass] 27.7 pg 27.0-32.0 [facility] MCHC (RBC) [Mass/Vol] 32.2 g/dL 32-36 [facility] Nucleated RBC/100 WBC (Bld) [Ratio] 0 % 0-5 [facility] Platelet mean volume (Bld) [Entitic vol] 10.9 fL 6.2-12.0 [facility] Platelets (Bld) [#/Vol] 223 10*3/uL 150-450 [facility] No Panel InformationOrdered By: Elina Chávez on 01-11-2024 Estimated GFR (MDRD) Amer 159 mL/min >60 [facility] Comment on above: GFR Calc Estimated GFR (MDRD) Non-Af Amer 132 mL/min >60 [facility] Comment on above: Non- GFR Calc VLDL Cholesterol 12 mg/dL 5-40 [facility] RBC Auto (Bld) [#/Vol]Ordere d By: Elina Chávez on 01-11-2024 RBC (Bld) [#/Vol] 5.67 10*6/uL 4.6-6.2 [facility] Serum or plasma calcium cristina urement (mass/volume)Ordered By: Elina Chávez on 01-11-2024 Calcium [Mass/Vol] 8.8 mg/dL 8.5-10.1 [facility] Serum or plasma creatinine m easurement (mass/volume)Ordered By: Elina Chávez on 01-11-2024 Creatinine [Mass/Vol] 0.70 mg/dL 0.70-1.30 [facility] Comment on above: The validity of the calculated GFR & GFRAA in patients over 70 years has not been determined. Clinical correlation is essential. Serum or plasma oxcarbazepin e measurement (mass/volume)Ordered By: Elina Chávez on 01-11-2024 OXcarbazepine [Mass/Vol] 22 ug/mL 10-35 [facility] Comment on above: This test was develo ped and its performance characteristicsdetermined by [employer]. It has not been cleared orapproved by the Food and Drug Administration. Detection Limit = 1Performed at: [facility] [employer] [address] [id number] Director: Debby Cruz MD, Phone: [phone] Serum or plasma urea nitroge n measurement (mass/volume)Ordered By: Elina Chávez on 01-11-2024 Urea nitrogen [Mass/Vol] 17 mg/dL 7-18 [facility] Thin prep Papanicolaou smear with manual screeningOrdered By: Elina Chávez on 01-11-2024 Thin prep Papanicolaou smear with manual screening 3.6 g/dL 3.2-5.0 [facility] Thin prep Papanicolaou smear with manual screening 13 U/L 15-37 [facility] Thin prep Papanicolaou smear with manual screening 1 5-15 [facility] Laboratory - Microbiology an d Antimicrobial susceptibilityOrdered By: Jovita Contreras on 01-07-2024 SARS-CoV-2 (COVID-19) RNA MEME+probe Ql (Unsp spec) [facility] Absolute lymphocyte countOrd ered By: Evaristo Junior on 12-21-2023 Lymphocytes Auto (Unsp spec) [#/Vol] 1.26 10*3/uL 0.83-4.51 [facility] Automated lymphocyte count a s percentage of total leukocytesOrdered By: Evaristo Pacheco on 12-21-2023 Lymphocytes/100 WBC Auto (Unsp spec) 19.0 % 19-41 [facility] Basophil percentageOrdered B y: Evaristo Pacheco on 12-21-2023 Basophils/100 WBC (Bld) 0.9 % 0-1 [facility] Bilirubin [Mass/Vol] 0.30 mg/dL 0.20-1.00 [facility] Comment on above: For patients on eltr ombopag therapy, use of Dimension [place] TBIL is not recommended. Chloride [Moles/Vol] 105 mmol/L 98-107 [facility] Eosinophils/100 WBC (Bld) 3.2 % 0-5 [facility] Glucose [Mass/Vol] 143 mg/dL 74-106 [facility] Comment on above: Fasting Glucose resu lt greater than or equal to 126 mg/dL suggests DIABETES MELLITUS per A.D.A. criteria. Hemoglobin (Bld) [Mass/Vol] 15.6 g/dL 13.0-16.5 [facility] Monocytes/100 WBC (Bld) 8.2 % 0-10 [facility] Neutrophils (Bld) [#/Vol] 4.5 10*3/uL 2.0-7.7 [facility] Neutrophils/100 WBC (Bld) 68.4 % 47-70 [facility] Potassium [Moles/Vol] 4.3 mmol/L 3.5-5.1 [facility] Protein [Mass/Vol] 7.1 g/dL 6.4-8.2 [facility] Sodium [Moles/Vol] 138 mmol/L 136-145 [facility] WBC (Bld) [#/Vol] 6.6 10*3/uL 4.4-11.0 [facility] Blood manual differential co mment interpretation (narrative result)Ordered By: Evaristo Pacheco on 12-21-2023 Manual differential comment Hood (Bld) [Interp] SCANNED [facility] Determination of erythrocyte mean corpuscular volume (MCV)Ordered By: Evaristo Pacheco on 12-21-2023 MCV (RBC) [Entitic vol] 82.6 fL 80-94 [facility] Direct bilirubinOrdered By: Evaristo Pacheco on 12-21-2023 Bilirubin.direct [Mass/Vol] 0.09 mg/dL 0.00-0.30 [facility] Erythrocyte distribution wid th ratioOrdered By: Evaristo Pacheco on 12-21-2023 Erythrocyte distribution width (RBC) [Ratio] 12.5 % 11.6-14.6 [facility] Erythrocyte distribution wid th standard deviationOrdered By: Evaristo Pacheco on 12-21-2023 Erythrocyte distribution width (RBC) [Entitic vol] 37.6 fL 35.1-43.9 [facility] Hematocrit Auto (Bld) [Volum e fraction]Ordered By: Evaristo Pacheco on 12-21-2023 Hematocrit (Bld) [Volume fraction] 47.4 % 40-54 [facility] Immature granulocytes/100 WB C Auto (Bld)Ordered By: Evaristo Pacheco on 12-21-2023 Immature granulocytes/100 WBC (Bld) 0.300 % 0.0-0.9 [facility] Comment on above: IG% - Immature Granu locytes (promyelocytes, myelocytes and metamyelocytes) > 1% indicates that a LEFT SHIFT is Present. Laboratory - Chemistry and C hemistry - challengeOrdered By: Evaristo Pacheco on 12-21-2023 ALP [Catalytic activity/Vol] 137 U/L 45-117 [facility] ALT [Catalytic activity/Vol] 24 U/L 16-61 [facility] CO2 [Moles/Vol] 30.0 mmol/L 21.0-32.0 [facility] Globulin (S) [Mass/Vol] 3.4 g/dL 2.2-4.2 [facility] Lipase [Catalytic activity/Vol] 18 U/L 13-75 [facility] Comment on above: Please note:LIPASE r evised reference range effective 23. New Lipase methodology. Expected to produce lower values than the previous assay method. NEW Reference Range: 13 - 75 U/L Urea nitrogen/Creatinine [Mass ratio] 14.5 mg/mg 10-20 [facility] Laboratory - Hematology and Cell countsOrdered By: Evaristo Pacheco on 12-21-2023 MCH (RBC) [Entitic mass] 27.2 pg 27.0-32.0 [facility] MCHC (RBC) [Mass/Vol] 32.9 g/dL 32-36 [facility] Nucleated RBC/100 WBC (Bld) [Ratio] 0 % 0-5 [facility] Platelets (Bld) [#/Vol] 198 10*3/uL 150-450 [facility] No Panel InformationOrdered By: Evaristo Pacheco on 12-21-2023 Estimated Creatinine Clearance Calc 104.84 ml/min [facility] Estimated GFR (MDRD) Amer 144 mL/min >60 [facility] Comment on above: GFR Calc Estimated GFR (MDRD) Non-Af Amer 119 mL/min >60 [facility] Comment on above: Non- GFR Calc Platelet mean volume Adrián-Ec ker (Bld) [Entitic vol]Ordered By: Evaristo Pacheco on 12-21-2023 Platelet mean volume (Bld) [Entitic vol] 10.7 fL 6.2-12.0 [facility] RBC Auto (Bld) [#/Vol]Ordere d By: Evaristo Pacheco on 12-21-2023 RBC (Bld) [#/Vol] 5.74 10*6/uL 4.6-6.2 [facility] Serum or plasma calcium cristina urement (mass/volume)Ordered By: Evaristo Pacheco on 12-21-2023 Calcium [Mass/Vol] 8.9 mg/dL 8.5-10.1 [facility] Serum or plasma creatinine m easurement (mass/volume)Ordered By: Evaristo Pacheco on 12-21-2023 Creatinine [Mass/Vol] 0.76 mg/dL 0.70-1.30 [facility] Comment on above: The validity of the calculated GFR & GFRAA in patients over 70 years has not been determined. Clinical correlation is essential. Serum or plasma urea nitroge n measurement (mass/volume)Ordered By: Evaristo Pacheco on 12-21-2023 Urea nitrogen [Mass/Vol] 11 mg/dL 7-18 [facility] Thin prep Papanicolaou smear with manual screeningOrdered By: Evaristo Pacheco on 12-21-2023 Thin prep Papanicolaou smear with manual screening 3.7 g/dL 3.2-5.0 [facility] Thin prep Papanicolaou smear with manual screening 7 U/L 15-37 [facility] Thin prep Papanicolaou smear with manual screening 3 5-15 [facility] Hepatitis A Antibody, Totalo n 12-16-2023 HAV Ab Ql (S) Negative Negative [facility] Interpretation and review of laboratory results Normal [facility] Test performed using Ella MIGUEL immunoassay system [facility] HIV 1/2 Screen (4th Generati on)on 09-11-2023 HIV 1+2 Ab+HIV1 p24 Ag IA Ql Negative Negative [facility] This assay screens f or the presence of HIV-1, HIV-2 antibodies and for the presence of HIV-1 antigen. Test performed using Ella MIGUEL immunoassay system [facility] Hepatitis B Core Antibody, T otalon 09-11-2023 HBV core Ab Ql (S) Negative Negative [facility] alth Hepatitis B Surface Antibody on 09-11-2023 HBV surface Ab Ql (S) Negative Negative [facility] Hepatitis B Surface Antigeno n 09-11-2023 HBV surface Ag Ql (S) Negative Negative [facility] No Panel Informationon 09-11 Interpretation and review of laboratory results Normal [facility] Test performed using Ella MIGUEL immunoassay system [facility] Creatinine [Mass/Vol]on 07-17 GFR/1.73 sq M.predicted CKD-EPI (S/P/Bld) [Vol rate/Area] 113 - PINF [facility] Comment on above: Estimated GFR was ca lculated using the 2020 CKD-EPI creatinine equation. [facility] Laborator y Services has implemented the eGFR calculation approach that does not have a coefficient for race that conforms to the NKF-ASN Task Force Recommendations. [facility] ESR Westergren method (Bld) [Velocity]on 07-30-2023 ESR (Bld) [Velocity] 8 mm/h [facility] Interpretation and review of laboratory results Normal [facility] Hepatic function 2000 panelo n 07-30-2023 Albumin [Mass/Vol] 3.9 g/dL 3.2 - 5.2 g/dL [facility] ALP [Catalytic activity/Vol] 115 U/L 40 - 150 U/L [facility] ALT [Catalytic activity/Vol] 26 U/L 14 - 65 U/L [facility] AST [Catalytic activity/Vol] 15 U/L 0-50 U/L [facility] Bilirubin [Mass/Vol] 0.6 mg/dL 0.0 - 1 .3 mg/dL [facility] Bilirubin.conjugated [Mass/Vol] 0.2 mg/dL 0.0 - 0.4 mg/dL [facility] Protein [Mass/Vol] 7.5 g/dL 6.0 - 8.0 g/dL [facility] Laboratory - Chemistry and C hemistry - challengeon 07-30-2023 Creatinine [Mass/Vol] 0.80 mg/dL 0.50 - 1.30 mg/dL [facility] CRP [Mass/Vol] 5.8 mg/L NINF - 10.0 mg/L [facility] No Panel Informationon 07-30 Interpretation and review of laboratory results Normal [facility] No acute osseous abnormality or significant degenerative changes of the left hand. Workstation ID: [id number] W-locate EXAMINATION: XR HAND LEFT 3+ VIEWS (STANDARD) 07/30/2023 9:24 am HISTORY: ORDERING SYSTEM PROVIDED HISTORY: joint pain, please eval for inflammatory arthritis, TECHNOLOGIST PROVIDED HISTORY: Illness/Other Reason for exam: joint pain, please eval for inflammatory arthritis Cancer History: U Surgery, RadiationHistory: U Encounter Type: Initial Additional signs and symptoms: ORDERING SYSTEM PROVIDED DIAGNOSIS CODES: M35.00 Sjogren's syndrome, with unspecified organ involvement ([facility]) M25.50 Polyarthralgia COMPARISON: None. FINDINGS: No acute fracture or dislocation. The joint spaces are intact. No periarticular erosive changes. Unremarkable soft tissues. W-locate Ruth Sue MD - 07/30/2023 EXAMINATION: XR [...] of the left hand. Workstation ID: [id number] [facility] No acute osseous abnormality or significant degenerative changes of the right foot. Workstation ID: [id number] GE RIS EXAMINATION: XR FOOT RIGHT 3+ VIEWS [...] No periarticular erosive changes. Unremarkable soft tissues. GE RIS Ruth Sue MD - 07/30/2023 EXAMINATION: XR [...] of the right foot. Workstation ID: [id number] [facility] No acute osseous abnormality or significant degenerative changes of the right hand. Workstation ID: [id number] GE RIS EXAMINATION: XR HAND RIGHT 3+ VIEWS [...] preserved. No periarticular erosive changes.Unremarkable soft tissues. W-locate Ruth Sue MD - 07/30/2023 EXAMINATION: XR [...] of the right hand. Workstation ID: [id number] [facility] No acute osseous abnormality of the left foot. Workstation ID: [id number] W-locate EXAMINATION: XR FOOT LEFT 3+ VIEWS (STANDARD) [...] joint spaces are preserved. Unremarkable soft tissues. Twice RIS Ruth Sue MD - 07/30/2023 EXAMINATION: XR [...] of the left foot. Workstation ID: [id number] [facility] Radiology Study observation (narrative) [facility] Radiology Study observation (narrative) [facility] Radiology Study observation (narrative) [facility] Panel InformationOrdered By: Ruth Salcedo on 07-30-2023 [facility] Work Phone: XR CHEST AP/PA AND [...] on ThuJul 30, 2023 10:05:51 AM EDT [facility] Comment on above: Order Comment: Injur [...] on ThuJul 30, 2023 10:02:19 AM EDT Normal [facility] Comment on above: Order Comment: Injur y/Trauma [...] AM EDT Finalized by: RUTH SUE on [facility] Jul 30, 2023 10:05:18 AM EDT [facility] Comment on above: Order Comment: Injur [...] M35.00 Sjogren's syndrome, with unspecified organ involvement ([facility]) M25.50 Polyarthralgia COMPARISON: None. FINDINGS: No acute [...] Mally Jul 30, 2023 10:07:09 AM EDT [facility] Comment on above: Order Comment: Injur [...] M35.00 Sjogren's syndrome, with unspecified organ involvement ([facility]) M25.50 Polyarthralgia COMPARISON: None. FINDINGS: No fracture [...] on ThuJul 30, 2023 10:03:58 AM EDT [facility] Comment on above: Order Comment: Injur y/Trauma or Illness?:Illness/Other How long have you had these symptoms (acute/chronic)?:Acute Reason for exam?:joint pain, please eval for inflammatory arthritis History of cancer?:U Surgeries, chemotherapy, or radiation?:U Type of Exam?:Initial Additional signs and symptoms?: Absolute lymphocyte countOrd ered By: Josselyn Galindo on 06-17-2023 Lymphocytes Auto (Unsp spec) [#/Vol] 1.02 10*3/uL 0.83-4.51 [facility] Basophil percentageOrdered B y: Josselyn Galindo on 06-17-2023 Basophils/100 WBC (Bld) 0.9 % 0-1 [facility] Bilirubin [Mass/Vol] 0.20 mg/dL 0.20-1.[address] [facility] Comment on above: For patients on eltr ombopag therapy, use of [place] TBIL is not recommended. Chloride [Moles/Vol] 110 mmol/L 98-107 [facility] Cholesterol [Mass/Vol] 132 mg/dL <200 [facility] Comment on above: <200 mg/dL Desirable 200-240 mg/dL Borderline >240 mg/dL High Risk Eosinophils/100 WBC (Bld) 3.9 % 0-5 [facility] Glucose [Mass/Vol] 108 mg/dL 74-106 [facility] Comment on above: Fasting Glucose resu lt from 100 to 125 mg/dL suggests IMPAIRED HOMEOSTASIS per A.D.A. criteria. Neutrophils (Bld) [#/Vol] 3.5 10*3/uL 2.0-7.7 [facility] Neutrophils/100 WBC (Bld) 65.8 % 47-70 [facility] Potassium [Moles/Vol] 4.1 mmol/L 3.5-5.1 [facility] Protein [Mass/Vol] 7.0 g/dL 6.4-8.2 [facility] Sodium [Moles/Vol] 141 mmol/L 136-145 [facility] Triglyceride [Mass/Vol] 105 mg/dL <199 [facility] Comment on above: The drugs N-Acetylcy steine and Metamizole may falsely depress this assay.Serum Triglycerides Reference Interval Normal <150 mg/dL Borderline high 150 - 199 mg/dL High 200 - 499 mg/dL Very High > or = 500 mg/dL WBC (Bld) [#/Vol] 5.3 10*3/uL 4.4-11.0 [facility] Blood erythrocytes count (nu mber/volume)Ordered By: Josselyn Galindo on 06-17-2023 RBC (Bld) [#/Vol] 5.45 10*6/uL 4.6-6.2 [facility] Blood hemoglobin measurement (mass/volume)Ordered By: Josselyn Galindo on 06-17-2023 Hemoglobin (Bld) [Mass/Vol] 15.9 g/dL 13.0-16.5 [facility] Blood lymphocytes/100 leukoc ytesOrdered By: Josselyn Galindo on 06-17-2023 Lymphocytes/100 WBC (Bld) 19.1 % 19-41 [facility] Blood monocytes/100 leukocyt esOrdered By: Josselyn Galindo on 06-17-2023 Monocytes/100 WBC (Bld) 9.9 % 0-10 [facility] Blood platelet mean volumeOr dered By: Josselyn Galindo on 06-17-2023 Platelet mean volume (Bld) [Entitic vol] 10.6 fL 6.2-12.0 [facility] Determination of erythrocyte mean corpuscular volume (MCV)Ordered By: Josselyn Galindo on 06-17-2023 MCV (RBC) [Entitic vol] 90.6 fL 80-94 [facility] Hematocrit Auto (Bld) [Volum e fraction]Ordered By: Josselyn Galindo on 06-17-2023 Hematocrit (Bld) [Volume fraction] 49.4 % 40-54 [facility] Laboratory - Chemistry and C hemistry - challengeOrdered By: Josselyn Galindo on 06-17-2023 ALP [Catalytic activity/Vol] 98 U/L 45-117 [facility] ALT [Catalytic activity/Vol] 19 U/L 16-61 [facility] CO2 [Moles/Vol] 27.0 mmol/L 21.0-32.0 [facility] Globulin (S) [Mass/Vol] 3.8 g/dL 2.2-4.2 [facility] Urea nitrogen/Creatinine [Mass ratio] 14.8 mg/mg 10-20 [facility] Laboratory - Hematology and Cell countsOrdered By: Josselyn Galindo on 06-17-2023 Erythrocyte distribution width (RBC) [Entitic vol] 43.2 fL 35.1-43.9 [facility] Erythrocyte distribution width (RBC) [Ratio] 13.1 % 11.6-14.6 [facility] Immature granulocytes/100 WBC (Bld) 0.400 % 0.0-0.9 [facility] Comment on above: IG% - Immature Granu locytes (promyelocytes, myelocytes and metamyelocytes) > 1% indicates that a LEFT SHIFT is Present. MCH (RBC) [Entitic mass] 29.2 pg 27.0-32.0 [facility] Nucleated RBC/100 WBC (Bld) [Ratio] 0 % 0-5 [facility] MCHC Auto (RBC) [Mass/Vol]Or dered By: Josselyn Galindo on 06-17-2023 MCHC (RBC) [Mass/Vol] 32.2 g/dL 32-36 [facility] No Panel InformationOrdered By: Josselyn Galindo on 06-17-2023 Estimated GFR (MDRD) Amer 166 mL/min >60 [facility] Comment on above: GFR Calc Estimated GFR (MDRD) Non-Af Amer 137 mL/min >60 [facility] Comment on above: Non- GFR Calc Prostate Specific Antigen Screen 0.40 ng/mL 0.00-4.00 [facility] Comment on above: This test was perfor med using the TPSA assay method for [employer] chemistry system. Values obtained with differentassay methods cannot be used interchangably.When changing PSA assays in the course of monitoring apatient, additional sequential testing should be carriedout to confirm baseline values. Thyroid Stimulating Hormone (TSH) 0.66 uIU/mL 0.358-3.74 [facility] Platelets bldOrdered By: Omar Galindo on 06-17-2023 Platelets (Bld) [#/Vol] 191 10*3/uL 150-450 [facility] Serum or plasma albumin cristina urement (mass/volume)Ordered By: Josselyn Galindo on 06-17-2023 Albumin [Mass/Vol] 3.2 g/dL 3.2-5.0 [facility] Serum or plasma albumin/glob ulin mass ratioOrdered By: Josselyn Galindo on 06-17-2023 Albumin/Globulin [Mass ratio] 0.8 {ratio} 0.9-2.4 [facility] Serum or plasma calcium cristina urement (mass/volume)Ordered By: Josselyn Galindo on 06-17-2023 Calcium [Mass/Vol] 8.3 mg/dL 8.5-10.1 [facility] Serum or plasma cholesterol in HDL measurement (mass/volume)Ordered By: Josselyn Galindo on 06-17-2023 Cholesterol in HDL [Mass/Vol] 37 mg/dL >40 [facility] Comment on above: The drugs N-Acetylcy steine and Metamizole may falsely depress this assay. Reference Range HDL <40 mg/dL Low HDL Cholesterol HDL >or= 60 mg/dL High HDL Cholesterol Serum or plasma cholesterol in VLDL measurement (mass/volume)Ordered By: Josselyn Galindo on 06-17-2023 Cholesterol in VLDL [Mass/Vol] 21 mg/dL 5-40 [facility] Serum or plasma creatinine m easurement (mass/volume)Ordered By: Josselyn Galindo on 06-17-2023 Creatinine [Mass/Vol] 0.68 mg/dL 0.70-1.30 [facility] Comment on above: The validity of the calculated GFR & GFRAA in patients over 70 years has not been determined. Clinical correlation is essential. Serum or plasma low density lipoprotein (LDL) cholesterol measurement (mass/volume)Ordered By: Josselyn Galindo on 06-17-2023 Cholesterol in LDL [Mass/Vol] 74 mg/dL 0-130 [facility] Serum or plasma urea nitroge n measurement (mass/volume)Ordered By: Josselyn Galindo on 06-17-2023 Urea nitrogen [Mass/Vol] 10 mg/dL 7-18 [facility] Thin prep Papanicolaou smear with manual screeningOrdered By: Josselyn Galindo on 06-17-2023 Thin prep Papanicolaou smear with manual screening 17 U/L 15-37 [facility] Thin prep Papanicolaou smear with manual screening 4 5-15 [facility] Whole blood hemoglobin A1c/t otal hemoglobin ratio (mass fraction)Ordered By: Josselyn Galindo on 06-17-2023 HbA1c (Bld) [Mass fraction] 5.1 % 3.8-5.6 [facility] Comment on above: Normal < 5.7 % Predi abetic 5.7 - 6.4 % Diabetic >or= 6.5 % Please note range changes. 06-15-2023 36 Manuela is calling [employer] in for an update. She was advised the office is scheduling into next year and is no longer needing to schedule the patient. 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 Archibald [place] [facility] [place] [facility] Chief Complaint/Reason for Call: Manuela states [...] hours to return their call: No Normal [facility] Absolute lymphocyte countOrd ered By: Keny Guevara on 03-27-2023 Lymphocytes Auto (Unsp spec) [#/Vol] 1.71 10*3/uL 0.83-4.51 [facility] Basophil percentageOrdered B y: Keny Guevara on 03-27-2023 Basophils/100 WBC (Bld) 0.6 % 0-1 [facility] Bilirubin [Mass/Vol] 0.60 mg/dL 0.20-1.00 [facility] Comment on above: For patients on eltr ombopag therapy, use of [place] TBIL is not recommended. Chloride [Moles/Vol] 101 mmol/L 98-107 [facility] Eosinophils/100 WBC (Bld) 0.6 % 0-5 [facility] Glucose [Mass/Vol] 119 mg/dL 74-106 [facility] Comment on above: Fasting Glucose resu lt from 100 to 125 mg/dL suggests IMPAIRED HOMEOSTASIS per A.D.A. criteria. Neutrophils (Bld) [#/Vol] 11.2 10*3/uL 2.0-7.7 [facility] Neutrophils/100 WBC (Bld) 77.7 % 47-70 [facility] Potassium [Moles/Vol] 3.7 mmol/L 3.5-5.1 [facility] Protein [Mass/Vol] 7.4 g/dL 6.4-8.2 [facility] Sodium [Moles/Vol] 137 mmol/L 136-145 [facility] WBC (Bld) [#/Vol] 14.4 10*3/uL 4.4-11.0 [facility] Blood erythrocytes count (nu mber/volume)Ordered By: Keny Guevara on 03-27-2023 RBC (Bld) [#/Vol] 6.03 10*6/uL 4.6-6.2 [facility] Blood hemoglobin measurement (mass/volume)Ordered By: Keny Guevara on 03-27-2023 Hemoglobin (Bld) [Mass/Vol] 17.9 g/dL 13.0-16.5 [facility] Blood lymphocytes/100 leukoc ytesOrdered By: Keny Guevara on 03-27-2023 Lymphocytes/100 WBC (Bld) 11.9 % 19-41 [facility] Blood monocytes/100 leukocyt esOrdered By: Keny Guevara on 03-27-2023 Monocytes/100 WBC (Bld) 8.6 % 0-10 [facility] Blood platelet mean volumeOr dered By: Keny Guevara on 03-27-2023 Platelet mean volume (Bld) [Entitic vol] 10.5 fL 6.2-12.0 [facility] Determination of erythrocyte mean corpuscular volume (MCV)Ordered By: Keny Guevara on 03-27-2023 MCV (RBC) [Entitic vol] 89.6 fL 80-94 [facility] Erythrocyte sedimentation ra teOrdered By: Keny Guevara on 03-27-2023 ESR (Bld) [Velocity] 9 mm/h 0-20 [facility] Hematocrit Auto (Bld) [Volum e fraction]Ordered By: Keny Guevara on 03-27-2023 Hematocrit (Bld) [Volume fraction] 54.0 % 40-54 [facility] Laboratory - Chemistry and C hemistry - challengeOrdered By: Keny Guevara on 03-27-2023 ALP [Catalytic activity/Vol] 91 U/L 45-117 [facility] ALT [Catalytic activity/Vol] 21 U/L 16-61 [facility] CO2 [Moles/Vol] 29.0 mmol/L 21.0-32.0 [facility] Globulin (S) [Mass/Vol] 3.6 g/dL 2.2-4.2 [facility] Urea nitrogen/Creatinine [Mass ratio] 19.0 mg/mg 10-20 [facility] Laboratory - Hematology and Cell countsOrdered By: Keny Guevara on 03-27-2023 Erythrocyte distribution width (RBC) [Entitic vol] 43.5 fL 35.1-43.9 [facility] Erythrocyte distribution width (RBC) [Ratio] 13.3 % 11.6-14.6 [facility] Immature granulocytes/100 WBC (Bld) 0.600 % 0.0-0.9 [facility] Comment on above: IG% - Immature Granu locytes (promyelocytes, myelocytes and metamyelocytes) > 1% indicates that a LEFT SHIFT is Present. MCH (RBC) [Entitic mass] 29.7 pg 27.0-32.0 [facility] Nucleated RBC/100 WBC (Bld) [Ratio] 0 % 0-5 [facility] MCHC Auto (RBC) [Mass/Vol]Or dered By: Keny Guevara on 03-27-2023 MCHC (RBC) [Mass/Vol] 33.1 g/dL 32-36 [facility] No Panel InformationOrdered By: Keny Guevara on 03-27-2023 Endomysial IgA Antibody Negative Negative [facility] Estimated GFR (MDRD) Amer 139 mL/min >60 [facility] Comment on above: GFR Calc Estimated GFR (MDRD) Non-Af Amer 115 mL/min >60 [facility] Comment on above: Non- GFR Calc Platelets bldOrdered By: Vitor Guevara on 03-27-2023 Platelets (Bld) [#/Vol] 253 10*3/uL 150-450 [facility] Serum IgA measurement (units /volume)Ordered By: Keny Guevara on 03-27-2023 IgA Qn (S) 211 mg/dL 90-386 [facility] Comment on above: Performed at: [address] [id number] Director: Carlos Eduardo Teague PhD, Phone: [phone] Serum or plasma C reactive p rotein measurement (mass/volume)Ordered By: Keny Guevara on 03-27-2023 CRP [Mass/Vol] 22.40 mg/L 0.0-3.0 [facility] Comment on above: C-Reactive Protein ( CRP) provides useful information for thediagnosis, therapy and monitoring of inflammatory processesand associated diseases. For the evaluation of Relative Riskfor Cardiovascular Disease, a High Sensitivity CRP (HSCRP)should be ordered. Serum or plasma albumin cristina urement (mass/volume)Ordered By: Keny Guevara on 03-27-2023 Albumin [Mass/Vol] 3.8 g/dL 3.2-5.0 [facility] Serum or plasma albumin/glob ulin mass ratioOrdered By: Keny Guevara on 03-27-2023 Albumin/Globulin [Mass ratio] 1.1 {ratio} 0.9-2.4 [facility] Serum or plasma calcium cristina urement (mass/volume)Ordered By: Keny Guevara on 03-27-2023 Calcium [Mass/Vol] 9.2 mg/dL 8.5-10.1 [facility] Serum or plasma creatinine m easurement (mass/volume)Ordered By: Keny Guevara on 03-27-2023 Creatinine [Mass/Vol] 0.79 mg/dL 0.70-1.30 [facility] Comment on above: The validity of the calculated GFR & GFRAA in patients over 70 years has not been determined. Clinical correlation is essential. Serum or plasma urea nitroge n measurement (mass/volume)Ordered By: Keny Guevara on 03-27-2023 Urea nitrogen [Mass/Vol] 15 mg/dL 7-18 [facility] Serum tissue transglutaminas e IgA antibody assay (units/volume)Ordered By: Keny Guevara on 03-27-2023 tTG IgA Qn (S) <2 U/mL 0-3 [facility] Comment on above: Negative 0 - 3 Weak Positive 4 - 10 Positive >10 Tissue Transglutaminase (tTG) has been identified as the endomysial antigen. Studies have demonstr- ated that endomysial IgA antibodies have over 99% specificity for gluten sensitive enteropathy. Thin prep Papanicolaou smear with manual screeningOrdered By: Keny Guevara on 03-27-2023 Thin prep Papanicolaou smear with manual screening 13 U/L 15-37 [facility] Thin prep Papanicolaou smear with manual screening 7 5-15 [facility] Absolute lymphocyte countOrd ered By: Keny Guevara on 11-27-2022 Lymphocytes Auto (Unsp spec) [#/Vol] 1.18 10*3/uL 0.83-4.51 [facility] Basophil percentageOrdered B y: Keny Guevara on 11-27-2022 Basophils/100 WBC (Bld) 0.3 % 0-1 [facility] Bilirubin [Mass/Vol] 0.40 mg/dL 0.20-1.00 [facility] Comment on above: For patients on eltr ombopag therapy, use of [place] TBIL is not recommended. Chloride [Moles/Vol] 110 mmol/L 98-107 [facility] Eosinophils/100 WBC (Bld) 1.6 % 0-5 [facility] Glucose [Mass/Vol] 121 mg/dL 74-106 [facility] Comment on above: Fasting Glucose resu lt from 100 to 125 mg/dL suggests IMPAIRED HOMEOSTASIS per A.D.A. criteria. Neutrophils (Bld) [#/Vol] 7.6 10*3/uL 2.0-7.7 [facility] Neutrophils/100 WBC (Bld) 78.0 % 47-70 [facility] Potassium [Moles/Vol] 4.1 mmol/L 3.5-5.1 [facility] Protein [Mass/Vol] 7.1 g/dL 6.4-8.2 [facility] Sodium [Moles/Vol] 141 mmol/L 136-145 [facility] WBC (Bld) [#/Vol] 9.8 10*3/uL 4.4-11.0 [facility] Blood erythrocytes count (nu mber/volume)Ordered By: Keny Guevara on 11-27-2022 RBC (Bld) [#/Vol] 5.38 10*6/uL 4.6-6.2 [facility] Blood hemoglobin measurement (mass/volume)Ordered By: Keny Guevara on 11-27-2022 Hemoglobin (Bld) [Mass/Vol] 15.6 g/dL 13.0-16.5 [facility] Blood lymphocytes/100 leukoc ytesOrdered By: Keny Guevara on 11-27-2022 Lymphocytes/100 WBC (Bld) 12.1 % 19-41 [facility] Blood monocytes/100 leukocyt esOrdered By: Keny Guevara on 11-27-2022 Monocytes/100 WBC (Bld) 7.9 % 0-10 [facility] Blood platelet mean volumeOr dered By: Keny Guevara on 11-27-2022 Platelet mean volume (Bld) [Entitic vol] 11.1 fL 6.2-12.0 [facility] Determination of erythrocyte mean corpuscular volume (MCV)Ordered By: Keny Guevara on 11-27-2022 MCV (RBC) [Entitic vol] 86.6 fL 80-94 [facility] Erythrocyte sedimentation ra teOrdered By: Keny Guevara on 11-27-2022 ESR (Bld) [Velocity] 16 mm/h 0-20 [facility] Hematocrit Auto (Bld) [Volum e fraction]Ordered By: Keny Guevara on 11-27-2022 Hematocrit (Bld) [Volume fraction] 46.6 % 40-54 [facility] - Chemistry and C hemistry - challengeOrdered By: Keny Guevara on 11-27-2022 ALP [Catalytic activity/Vol] 93 U/L 45-117 [facility] ALT [Catalytic activity/Vol] 16 U/L 16-61 [facility] CO2 [Moles/Vol] 30.0 mmol/L 21.0-32.0 [facility] Globulin (S) [Mass/Vol] 3.5 g/dL 2.2-4.2 [facility] Urea nitrogen/Creatinine [Mass ratio] 14.2 mg/mg 10-20 [facility] - Hematology and Cell countsOrdered By: Keny Guevara on 11-27-2022 Erythrocyte distribution width (RBC) [Entitic vol] 41.1 fL 35.1-43.9 [facility] Erythrocyte distribution width (RBC) [Ratio] 13.1 % 11.6-14.6 [facility] Immature granulocytes/100 WBC (Bld) 0.100 % 0.0-0.9 [facility] Comment on above: IG% - Immature Granu locytes (promyelocytes, myelocytes and metamyelocytes) > 1% indicates that a LEFT SHIFT is Present. MCH (RBC) [Entitic mass] 29.0 pg 27.0-32.0 [facility] Nucleated RBC/100 WBC (Bld) [Ratio] 0 % 0-5 [facility] ([facility]BC) [Mass/Vol]Or dered By: Keny Guevara on 11-27-2022 MCHC (RBC) [Mass/Vol] 33.5 g/dL 32-36 [facility] No Panel InformationOrdered By: Keny Guevara on 11-27-2022 Endomysial IgA Antibody Negative Negative [facility] Estimated GFR (MDRD) Amer 159 mL/min >60 [facility] Comment on above: GFR Calc Estimated GFR (MDRD) Non-Af Amer 131 mL/min >60 [facility] Comment on above: Non- GFR Calc Miscellaneous Test See comment [facility] Comment on above: TEST RESULT LIMITSTh [...] developed and its performance characteristics determined by [employer]. It has not been cleared or approved by the Food and Drug Administration. This case has been reviewed, approved, interpreted and electronically signed by Jose Aguilar, PhD, [facility].Methodology Enzymatic Endpoint/Liquid Chromatography - Tandem Mass Spectrometry (LC-MS/MS) ____ TESTING PERFORMED AT [facility]. ORIGINAL REPORT ON FILE IN LAB CONTAINS ADDITIONAL TEST SITE INFORMATION. Platelets bldOrdered By: Vitor Guevara on 11-27-2022 Platelets (Bld) [#/Vol] 204 10*3/uL 150-450 [facility] Serum IgA measurement (units /volume)Ordered By: Keny Guevara on 11-27-2022 IgA Qn (S) 203 mg/dL 90-386 [facility] Comment on above: Performed at: [place] [id number] Director: Carlos Eduardo Teague PhD, Phone: [phone] Serum or plasma C reactive p rotein measurement (mass/volume)Ordered By: Keny Guevara on 11-27-2022 CRP [Mass/Vol] 4.83 mg/L 0.0-3.0 [facility] Comment on above: C-Reactive Protein ( CRP) provides useful information for thediagnosis, therapy and monitoring of inflammatory processesand associated diseases. For the evaluation of Relative Riskfor Cardiovascular Disease, a High Sensitivity CRP (HSCRP)should be ordered. Serum or plasma albumin cristina urement (mass/volume)Ordered By: Keny Guevara on 11-27-2022 Albumin [Mass/Vol] 3.6 g/dL 3.2-5.0 [facility] Serum or plasma albumin/glob ulin mass ratioOrdered By: Keny Guevara on 11-27-2022 Albumin/Globulin [Mass ratio] 1.0 {ratio} 0.9-2.4 [facility] Serum or plasma calcium cristina urement (mass/volume)Ordered By: Keny Guevara on 11-27-2022 Calcium [Mass/Vol] 8.7 mg/dL 8.5-10.1 [facility] Serum or plasma creatinine m easurement (mass/volume)Ordered By: Keny Guevara on 11-27-2022 Creatinine [Mass/Vol] 0.70 mg/dL 0.70-1.30 [facility] Comment on above: The validity of the calculated GFR & GFRAA in patients over 70 years has not been determined. Clinical correlation is essential. Serum or plasma urea nitroge n measurement (mass/volume)Ordered By: Keny Guevara on 11-27-2022 Urea nitrogen [Mass/Vol] 10 mg/dL 7-18 [facility] Serum tissue transglutaminas e IgA antibody assay (units/volume)Ordered By: Keny Guevara on 11-27-2022 tTG IgA Qn (S) <2 U/mL 0-3 [facility] Comment on above: Negative 0 - 3 Weak Positive 4 - 10 Positive >10 Tissue Transglutaminase (tTG) has been identified as the endomysial antigen. Studies have demonstr- ated that endomysial IgA antibodies have over 99% specificity for gluten sensitive enteropathy. Thin prep Papanicolaou smear with manual screeningOrdered By: Keny Guevara on 11-27-2022 Thin prep Papanicolaou smear with manual screening 10 U/L 15-37 [facility] Thin prep Papanicolaou smear with manual screening 1 5-15 [facility] Absolute lymphocyte countOrd ered By: Keny Guevara on 11-13-2022 Lymphocytes Auto (Unsp spec) [#/Vol] 3.14 10*3/uL 0.83-4.51 [facility] Basophil percentageOrdered B y: Keny Guevara on 11-13-2022 Basophils/100 WBC (Bld) 0.3 % 0-1 [facility] Bilirubin [Mass/Vol] 0.20 mg/dL 0.20-1.00 [facility] Comment on above: For patients on eltr ombopag therapy, use of Dimension [place] TBIL is not recommended. Chloride [Moles/Vol] 105 mmol/L 98-107 [facility] Eosinophils/100 WBC (Bld) 1.8 % 0-5 [facility] Glucose [Mass/Vol] 86 mg/dL 74-106 [facility] Neutrophils (Bld) [#/Vol] 8.4 10*3/uL 2.0-7.7 [facility] Neutrophils/100 WBC (Bld) 64.5 % 47-70 [facility] Potassium [Moles/Vol] 4.2 mmol/L 3.5-5.1 [facility] Protein [Mass/Vol] 6.7 g/dL 6.4-8.2 [facility] Sodium [Moles/Vol] 138 mmol/L 136-145 [facility] WBC (Bld) [#/Vol] 13.0 10*3/uL 4.4-11.0 [facility] Blood erythrocytes count (nu mber/volume)Ordered By: Keny Guevara on 11-13-2022 RBC (Bld) [#/Vol] 5.24 10*6/uL 4.6-6.2 [facility] Blood hemoglobin measurement (mass/volume)Ordered By: Keny Guevara on 11-13-2022 Hemoglobin (Bld) [Mass/Vol] 15.3 g/dL 13.0-16.5 [facility] Blood lymphocytes/100 leukoc ytesOrdered By: Keny Guevara on 11-13-2022 Lymphocytes/100 WBC (Bld) 24.2 % 19-41 [facility] Blood monocytes/100 leukocyt esOrdered By: Keny Guevara on 11-13-2022 Monocytes/100 WBC (Bld) 8.7 % 0-10 [facility] Blood platelet mean volumeOr dered By: Keny Guevara on 11-13-2022 Platelet mean volume (Bld) [Entitic vol] 10.4 fL 6.2-12.0 [facility] Determination of erythrocyte mean corpuscular volume (MCV)Ordered By: Keny Guevara on 11-13-2022 MCV (RBC) [Entitic vol] 87.8 fL 80-94 [facility] Hematocrit Auto (Bld) [Volum e fraction]Ordered By: Keny Guevara on 11-13-2022 Hematocrit (Bld) [Volume fraction] 46.0 % 40-54 [facility] - Chemistry and C hemistry - challengeOrdered By: Keny Guevara on 11-13-2022 ALP [Catalytic activity/Vol] 65 U/L 45-117 [facility] ALT [Catalytic activity/Vol] 17 U/L 16-61 [facility] CO2 [Moles/Vol] 33.0 mmol/L 21.0-32.0 [facility] Globulin (S) [Mass/Vol] 3.4 g/dL 2.2-4.2 [facility] Urea nitrogen/Creatinine [Mass ratio] 30.5 mg/mg 10-20 [facility] - Hematology and Cell countsOrdered By: Keny Guevara on 11-13-2022 Erythrocyte distribution width (RBC) [Entitic vol] 42.0 fL 35.1-43.9 [facility] Erythrocyte distribution width (RBC) [Ratio] 13.1 % 11.6-14.6 [facility] Immature granulocytes/100 WBC (Bld) 0.500 % 0.0-0.9 [facility] Comment on above: IG% - Immature Granu locytes (promyelocytes, myelocytes and metamyelocytes) > 1% indicates that a LEFT SHIFT is Present. MCH (RBC) [Entitic mass] 29.2 pg 27.0-32.0 [facility] Nucleated RBC/100 WBC (Bld) [Ratio] 0 % 0-5 [facility] MCHC Auto (RBC) [Mass/Vol]Or dered By: Keny Guevara on 11-13-2022 MCHC (RBC) [Mass/Vol] 33.3 g/dL 32-36 [facility] No Panel InformationOrdered By: Keny Guevara on 11-13-2022 Estimated GFR (MDRD) Amer 182 mL/min >60 [facility] Comment on above: GFR Calc Estimated GFR (MDRD) Non-Af Amer 151 mL/min >60 [facility] Comment on above: Non- GFR Calc Platelets bldOrdered By: Vitor Guevara on 11-13-2022 Platelets (Bld) [#/Vol] 224 10*3/uL 150-450 [facility] Serum or plasma albumin cristina urement (mass/volume)Ordered By: Keny Guevara on 11-13-2022 Albumin [Mass/Vol] 3.3 g/dL 3.2-5.0 [facility] Serum or plasma albumin/glob ulin mass ratioOrdered By: Keny Guevara on 11-13-2022 Albumin/Globulin [Mass ratio] 1.0 {ratio} 0.9-2.4 [facility] Serum or plasma calcium cristina urement (mass/volume)Ordered By: Keny Guevara on 11-13-2022 Calcium [Mass/Vol] 8.6 mg/dL 8.5-10.1 [facility] Serum or plasma creatinine m easurement (mass/volume)Ordered By: Keny Guevara on 11-13-2022 Creatinine [Mass/Vol] 0.62 mg/dL 0.70-1.30 [facility] Comment on above: The validity of the calculated GFR & GFRAA in patients over 70 years has not been determined. Clinical correlation is essential. Serum or plasma urea nitroge n measurement (mass/volume)Ordered By: Keny Guevara on 11-13-2022 Urea nitrogen [Mass/Vol] 19 mg/dL 7-18 [facility] Thin prep Papanicolaou smear with manual screeningOrdered By: Keny Guevara on 11-13-2022 Thin prep Papanicolaou smear with manual screening 8 U/L 15-37 [facility] Thin prep Papanicolaou smear with manual screening 0 5-15 [facility] CNPNon 11-07-2022 JADA Telephone ([facility]) ----- JOSE MCNAMARA ([id number]) 1980 M Date Time Provider Department 11/07/22 REINALDO PEREIRA During your visit today, we recorded the following information about you: Reinaldo Pereira PA-C 11/07/2022 7:20 AM Signed Please call and let patient know he did test positive for influenza A. Continue [id number] medications as needed for cough and congestion. [...] Date Reviewed: 11/06/2022 Reviewed by: Edward Powell APRN.ROLL OR TAPE EDGE MACHINE OPERATOR - Fully Assessed Reason for Visit: Results [...] Status:Closed by CALLIE COE LPN on 11/07/22 Normal [facility] Influenza virus A and B RNA and SARS-CoV-2 (COVID-19) N gene panel MEME+probe (Resp)on 11-07-2022 FLUAV RNA MEME+probe Ql (Unsp spec) Positive Abnormal Negative for Influenza A by RT-PCR [facility] FLUBV RNA MEME+probe Ql (Unsp spec) Negative Negative for Influenza B by RT-PCR [facility] SARS-CoV-2 (COVID-19) RNA MEME+probe Ql (Resp) SARS-CoV-2 (Agent of COVID-19) Not Detected by RT-PCR or equivalent method. Not Detected [facility] CNOVon 11-06-2022 CNOV Office Visit ([facility]WSTR ) ----- JOSE MCNAMARA ([id number]) 1980 M Date Time Provider Department 11/06/22 12:00 PM EDWARD POWELL [facility] During your visit today, we recorded the following information about you: Temperature Pulse Respiration Blood pressure 97.9 degrees 84/minute 18/minute 102/64 Weight 58.8 kg Edward Powell APRN.ROLL OR TAPE EDGE MACHINE OPERATOR 11/06/2022 11:53 AM Signed How to Manage [...] severe or concerning to you. Edward Powell APRN.ROLL OR TAPE EDGE MACHINE OPERATOR 11/06/2022 12:09 PM Signed Subjective HPI Nontoxic-appearing male presents to urgent care with chief complaint of fever and cough. Duration of symptoms 2 days. Associated symptoms with today's chief complaint are on and off headache, muscle aches, fatigue, nonproductive cough, and sore throat. Patient stated symptoms started abruptly. Patient states they have used [id number] medication with some success. Patient states they [...] use all (more content not included)... Normal [facility] No Panel InformationOrdered By: Keny Friend on 09-26-2022 Miscellaneous Test See comment [facility] Comment on above: TEST RESULT LIMITSIB D [...] developed and its performance characteristics determined by [employer]. It has not been cleared or approved by the Food and Drug Administration. The FDA has determined that such clearance or approval is not necessary.Atypical pANCA Negative NegativeComments Abnormal Suggestive of Crohn's Disease. Pattern is not conclusive for disease behavior risk stratification. TESTING PERFORMED AT [facility]. ORIGINAL REPORT ON FILE IN LAB CONTAINS ADDITIONAL TEST SITE INFORMATION. No Panel Informationon 08-05 Stool Calprotectin <16 ug/g 0-120 [facility] Work Phone: Comment on above: Concentration Interp retation Follow-Up<16 - 50 ug/g Normal None>50 -120 ug/g Borderline Re-evaluate in 4-6 weeks >120 ug/g Abnormal Repeat as clinically indicatedPerformed at: [facility] [address] [id number] Director: Debby Cruz MD, Phone: [phone] Absolute lymphocyte counton 07-15-2022 Lymphocytes Auto (Unsp spec) [#/Vol] 1.68 10*3/uL 0.83-4.51 [facility] Work Phone: Albumin Elph [Mass/Vol]on Albumin [Mass/Vol] Not Reportable [facility] Work Phone: [phone] Basophil percentageon 2021 Basophil percentage < 0.2 AI 0.0-0.9 [facility] Work Phone: Basophil percentage 1.7 AI 0.0-0.9 [facility] Work Phone: Basophils/100 WBC (Bld) 0.3 % 0-1 [facility] Work Phone: Bilirubin [Mass/Vol] 0.20 mg/dL 0.20-1.00 [facility] Work Phone: [phone] Comment on above: For patients on eltr ombopag therapy, use of Dimension [place] TBIL is not recommended. Chloride [Moles/Vol] 105 mmol/L 98-107 [facility] Work Phone: Eosinophils/100 WBC (Bld) 1.7 % 0-5 [facility] Work Phone: Glucose [Mass/Vol] 88 mg/dL 74-106 [facility] Work Phone: [phone] Neutrophils (Bld) [#/Vol] 14.2 10*3/uL 2.0-7.7 [facility] Work Phone: Neutrophils/100 WBC (Bld) 81.8 % 47-70 [facility] Work Phone: Potassium [Moles/Vol] 3.9 mmol/L 3.5-5.1 [facility] Work Phone: Protein [Mass/Vol] 7.4 g/dL 6.4-8.2 [facility] Work Phone: Sodium [Moles/Vol] 140 mmol/L 136-145 [facility] Work Phone: WBC (Bld) [#/Vol] 17.4 10*3/uL 4.4-11.0 [facility] Work Phone: Blood erythrocytes count (nu mber/volume)on 07-15-2022 RBC (Bld) [#/Vol] 5.53 10*6/uL 4.6-6.2 [facility] Work Phone: Blood hemoglobin measurement (mass/volume)on 07-15-2022 Hemoglobin (Bld) [Mass/Vol] 15.3 g/dL 13.0-16.5 [facility] Work Phone: [phone] Blood lymphocytes/100 leukoc yteson 07-15-2022 Lymphocytes/100 WBC (Bld) 9.6 % 19-41 [facility] Work Phone: [phone] Blood monocytes/100 leukocyt eson 07-15-2022 Monocytes/100 WBC (Bld) 6.4 % 0-10 [facility] Work Phone: Blood platelet mean volumeon 07-15-2022 Platelet mean volume (Bld) [Entitic vol] 11.6 fL 6.2-12.0 [facility] Work Phone: Determination of erythrocyte mean corpuscular volume (MCV)on 07-15-2022 MCV (RBC) [Entitic vol] 84.8 fL 80-94 [facility] Work Phone: Erythrocyte sedimentation ra shantanu 07-15-2022 ESR (Bld) [Velocity] 11 mm/h 0-20 [facility] Work Phone: Hematocrit Auto (Bld) [Volum e fraction]on 07-15-2022 Hematocrit (Bld) [Volume fraction] 46.9 % 40-54 [facility] Work Phone: [phone] Interpretation of serum or p lasma protein pattern by immunofixation (narrative resulton 07-15-2022 Protein Fractions Immunofixation Hood [Interp] Not Reportable [facility] Work Phone: Laboratory - Chemistry and C hemistry - challengeon 07-15-2022 ALP [Catalytic activity/Vol] 102 U/L 45-117 [facility] Work Phone: ALT [Catalytic activity/Vol] 18 U/L 16-61 [facility] Work Phone: CO2 [Moles/Vol] 30.0 mmol/L 21.0-32.0 [facility] Work Phone: Globulin (S) [Mass/Vol] 3.7 g/dL 2.2-4.2 [facility] Work Phone: Urea nitrogen/Creatinine [Mass ratio] 15.7 mg/mg 10-20 [facility] Work Phone: Laboratory - Hematology and Cell countson 07-15-2022 Erythrocyte distribution width (RBC) [Entitic vol] 39.9 fL 35.1-43.9 [facility] Work Phone: Erythrocyte distribution width (RBC) [Ratio] 12.9 % 11.6-14.6 [facility] Work Phone: Immature granulocytes/100 WBC (Bld) 0.200 % 0.0-0.9 [facility] Work Phone: Comment on above: IG% - Immature Granu locytes (promyelocytes, myelocytes and metamyelocytes) > 1% indicates that a LEFT SHIFT is Present. MCH (RBC) [Entitic mass] 27.7 pg 27.0-32.0 [facility] Work Phone: Nucleated RBC/100 WBC (Bld) [Ratio] 0 % 0-5 [facility] Work Phone: MCHC Auto (RBC) [Mass/Vol]on 07-15-2022 MCHC (RBC) [Mass/Vol] 32.6 g/dL 32-36 [facility] Work Phone: No Panel Informationon 07-15 Centromere B Antibody <0.2 AI 0.0-0.9 [facility] Work Phone: Endomysial IgA Antibody Negative Negative [facility] Work Phone: Estimated GFR (MDRD) Amer 121 mL/min >60 [facility] Work Phone: Comment on above: GFR Calc Estimated GFR (MDRD) Non-Af Amer 100 mL/min >60 [facility] Work Phone: Comment on above: Non- GFR Calc Hepatitis C Antibody Preliminary Reactive Nonre active [facility] Work Phone: Comment on above: Non Reactive: < 0.8 Equivocal: >/= 0.8 to < 1.0 Reactive: >/= 1.0The CDC recommends that a reactive/equivocal HCV antibody result be followed up by the HCV Nucleic Acid Amplificationtest (086021) Hepatitis C Genotype See comment [facility] Work Phone: Comment on above: TEST RESULT LIMITSHC V Genotyping Non ReflexHepatitis C Genotype Test not performed. We are unable to determine the genotype and/or phenotype of this sample due to insufficient viral copy number. Samples with low viral loads will often fail PCR amplification.Please note: This test was developed and its performance characteristics determined by [employer]. It has not been cleared or approved by the U.S. Food and Drug Administration. The FDA has determined that such clearance or approval is notnecessary. This test is used for clinical purposes. It should not be regarded as investigational or for research. ___ TESTING PERFORMED AT [facility]. ORIGINAL REPORT ON FILE IN LAB CONTAINS ADDITIONAL TEST SITE INFORMATION. Immunoglobulin E See comment [facility] Work Phone: Comment on above: TEST RESULT LIMITSIm munoglobulin E, Total <2 Low IU/mL 6-495 TESTING PERFORMED AT [facility]. ORIGINAL REPORT ON FILE IN LAB CONTAINS ADDITIONAL TEST SITE INFORMATION. 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 Antibody 0.9 AI 0.0-0.9 [facility] Work Phone: Platelets bldon 07-15-2022 Platelets (Bld) [#/Vol] 221 10*3/uL 150-450 [facility] Work Phone: Serum DNA double strand anti body assay (units/volume)on 07-15-2022 DNA double strand Ab Qn (S) 2 [IU]/mL 0-9 [facility] Work Phone: Comment on above: Negative <5 Equivoca l 5 - 9 Positive >9 Serum Cammie-1 antibody assay (u nits/volume)on 07-15-2022 Cammie-1 extractable nuclear Ab Qn (S) <0.2 AI 0.0-0.9 [facility] Work Phone: Serum Scl-70 extractable nuc lear antibody assay (units/volume)on 07-15-2022 SCL-70 extractable nuclear Ab Qn (S) <0.2 AI 0.0-0.9 [facility] Work Phone: Serum Park extractable nucl ear antibody detectionon 07-15-2022 Park extractable nuclear Ab Ql (S) <0.2 AI 0.0-0.9 [facility] Work Phone: Serum [id number] measu rement by electrophoresison 07-15-2022 Alpha 1 globulin Elph [Mass/Vol] Not Reportable [facility] Work Phone: Serum classic neutrophil cyt oplasmic antibody assay (units/volume)on 07-15-2022 Neutrophil cytoplasmic Ab.classic Qn (S) See comment [facility] Work Phone: Comment on above: TEST RESULT LIMITSAn tineutrophil Cytoplasmic AbCytoplasmic (C-ANCA) <1:20 titer Neg:<1:20Perinuclear (P-ANCA) <1:20 titer Neg:<1:20The presence of positive fluorescence exhibiting P-ANCA or C-ANCApatterns alone is not specific for the diagnosis of Chichi's Granulomatosis (WG) or microscopic polyangiitis. Decisions about treatment should not be based solely on ANCA IFA results. The [employer] ANCA [employer] Consensus recommends follow up testing of positive sera with both LA-3 and MPO-ANCA enzyme immunoassays. As many as 5% serum samples are positive only by EIA.Ref. AM J Clin Pathol 1999;111:507-513.Atypical pANCA <1:20 titer Neg:<1:20The atypical pANCA pattern has been observed in a significant percentage of patients with ulcerative colitis, primary sclerosing cholangitis and autoimmune hepatitis. ____ TESTING PERFORMED AT [facility]. ORIGINAL REPORT ON FILE IN LAB CONTAINS ADDITIONAL TEST SITE INFORMATION. Serum or plasma C reactive p rotein measurement (mass/volume)on 07-15-2022 CRP [Mass/Vol] 12.20 mg/L 0.0-3.0 [facility] Work Phone: Comment on above: C-Reactive Protein ( CRP) provides useful information for thediagnosis, therapy and monitoring of inflammatory processesand associated diseases. For the evaluation of Relative Riskfor Cardiovascular Disease, a High Sensitivity CRP (HSCRP)should be ordered. Serum or plasma IgA measurem ent (mass/volume)on 07-15-2022 IgA [Mass/Vol] Not Reportable [facility] Work Phone: Serum or plasma IgG measurem ent (mass/volume)on 07-15-2022 IgG [Mass/Vol] Not Reportable [facility] Work Phone: Serum or plasma IgM measurem ent (mass/volume)on 07-15-2022 IgM [Mass/Vol] Not Reportable [facility] Work Phone: Serum or plasma albumin cristina urement (mass/volume)on 07-15-2022 Albumin [Mass/Vol] 3.7 g/dL 3.2-5.0 [facility] Work Phone: Serum or plasma albumin/glob ulin mass ratioon 07-15-2022 Albumin/Globulin [Mass ratio] 1.0 {ratio} 0.9-2.4 [facility] Work Phone: Serum or plasma beta globuli n measurement by electrophoresis (mass/volume)on 07-15-2022 Beta globulin Elph [Mass/Vol] Not Reportable [facility] Work Phone: Serum or plasma calcium cristina urement (mass/volume)on 07-15-2022 Calcium [Mass/Vol] 8.5 mg/dL 8.5-10.1 [facility] Work Phone: Serum or plasma creatinine m easurement (mass/volume)on 07-15-2022 Creatinine [Mass/Vol] 0.89 mg/dL 0.70-1.30 [facility] Work Phone: Comment on above: The validity of the calculated GFR & GFRAA in patients over 70 years has not been determined. Clinical correlation is essential. Serum or plasma gamma globul in measurement by electrophoresis (mass/volume)on 07-15-2022 Gamma globulin Elph [Mass/Vol] Not Reportable [facility] Work Phone: Serum or plasma hepatitis C virus RNA measurement by probe and target amplification mon 07-15-2022 HCV RNA MEME+probe Qn See comment [facility] Work Phone: Comment on above: TEST RESULT LIMITSHC V RT-PCR, Quant (Non-Graph)Hepatitis C Quantitation HCV Not Detected IU/mLTest Information: The quantitative range of this assay is 15 IU/mL to 100 million IU/mL. TESTING PERFORMED AT [facility]. ORIGINAL REPORT ON FILE IN LAB CONTAINS ADDITIONAL TEST SITE INFORMATION. Serum or plasma urea nitroge n measurement (mass/volume)on 07-15-2022 Urea nitrogen [Mass/Vol] 14 mg/dL 7-18 [facility] Work Phone: Serum perinuclear neutrophil cytoplasmic antibody titer by immunofluorescenceon 07-15-2022 Neutrophil cytoplasmic Ab.perinuclear IF (S) [Titer] Not Reportable [facility] Work Phone: Serum tissue transglutaminas e IgA antibody assay (units/volume)on 07-15-2022 tTG IgA Qn (S) 5 U/mL 0-3 [facility] Work Phone: Comment on above: Negative 0 - 3 Weak Positive 4 - 10 Positive >10 Tissue Transglutaminase (tTG) has been identified as the endomysial antigen. Studies have demonstr- ated that endomysial IgA antibodies have over 99% specificity for gluten sensitive enteropathy. Thin prep Papanicolaou smear with manual screeningon 07-15-2022 Thin prep Papanicolaou smear with manual screening 15 U/L 15-37 [facility] Work Phone: Thin prep Papanicolaou smear with manual screening 5 5-15 [facility] Work Phone: Thin prep Papanicolaou smear with manual screening 232 U/L 87-241 [facility] Work Phone: Thin prep Papanicolaou smear with manual screening Not Reportable [facility] Work Phone: Total protein bloodon 2021 Protein [Mass/Vol] See comment [facility] Work [facility]: Comment on above: TEST RESULT LIMITSIF E and PE, SerumImmunoglobulin G, Qn, Serum 880 mg/dL [id number] A, Qn, Serum 204 mg/dL 90-386Immunoglobulin M, Qn, Serum 202 High mg/dL 20-172Protein, Total 7.0 g/dL 6.0-8.5Albumin 3.7 g/dL 2.9-4.2Psruj-4-Tkuaidxs 0.4 g/dL 0.0-0.0Vszcc-0-Xgnyjblc 0.8 g/dL 0.4-1.0Beta Globulin 0.9 g/dL 0.7-1.3Gamma Globulin 1.2 g/dL 0.4-1.8M-Martin Not Observed g/dL Not ObservedGlobulin, Total 3.3 g/dL 2.2-3.9A/G Ratio 1.2 0.7-1.7Immunofixation Result, Serum No monoclonality detected.Please note: Protein electrophoresis scan will follow via computer, mail, or [employer] delivery. Absolute lymphocyte counton 05-22-2022 Lymphocytes Auto (Unsp spec) [#/Vol] 0.96 10*3/uL 0.83-4.51 [facility] Work Phone: Basophil percentageon 2021 Basophil percentage 0-5 SEEN /hpf 0-5 [facility] Work Phone: Basophils/100 WBC (Bld) 0.6 % 0-1 [facility] Work Phone: Eosinophils/100 WBC (Bld) 1.5 % 0-5 [facility] Work Phone: [phone] Neutrophils (Bld) [#/Vol] 8.6 10*3/uL 2.0-7.7 [facility] Work Phone: Neutrophils/100 WBC (Bld) 85.0 % 47-70 [facility] Work Phone: WBC (Bld) [#/Vol] 10.2 10*3/uL 4.4-11.0 [facility] Work Phone: Bilirubin Test strip Ql (U)o n 05-22-2022 Bilirubin Ql (U) Negative Negative [facility] Work Phone: Blood erythrocytes count (nu mber/volume)on 05-22-2022 RBC (Bld) [#/Vol] 5.35 10*6/uL 4.6-6.2 [facility] Work Phone: Blood hemoglobin measurement (mass/volume)on 05-22-2022 Hemoglobin (Bld) [Mass/Vol] 15.0 g/dL 13.0-16.5 [facility] Work Phone: [phone] Blood lymphocytes/100 leukoc yteson 05-22-2022 Lymphocytes/100 WBC (Bld) 9.5 % 19-41 [facility] Work Phone: Blood monocytes/100 leukocyt eson 05-22-2022 Monocytes/100 WBC (Bld) 3.3 % 0-10 [facility] Work Phone: Blood platelet mean volumeon 05-22-2022 Platelet mean volume (Bld) [Entitic vol] 11.5 fL 6.2-12.0 [facility] Work Phone: Determination of erythrocyte mean corpuscular volume (MCV)on 05-22-2022 MCV (RBC) [Entitic vol] 84.3 fL 80-94 [facility] Work Phone: Hematocrit Auto (Bld) [Volum e fraction]on 05-22-2022 Hematocrit (Bld) [Volume fraction] 45.1 % 40-54 [facility] Work Phone: Ketones Test strip Ql (U)on 05-22-2022 Ketones Ql (U) 150 mg/dl Negative [facility] Work Phone: Comment on above: CRITICAL VALUE *HCRI TICAL VALUE VERIFIED. CALLED TO STEFANO AGUILAR (ER)05/22/22 1133 [place] Win.RESULTS READ BACK BY SAME. Laboratory - Hematology and Cell countson 05-22-2022 Erythrocyte distribution width (RBC) [Entitic vol] 36.8 fL 35.1-43.9 [facility] Work Phone: Erythrocyte distribution width (RBC) [Ratio] 12.1 % 11.6-14.6 [facility] Work Phone: Immature granulocytes/100 WBC (Bld) 0.100 % 0.0-0.9 [facility] Work Phone: Comment on above: IG% - Immature Granu locytes (promyelocytes, myelocytes and metamyelocytes) > 1% indicates that a LEFT SHIFT is Present. MCH (RBC) [Entitic mass] 28.0 pg 27.0-32.0 [facility] Work Phone: Nucleated RBC/100 WBC (Bld) [Ratio] 0 % 0-5 [facility] Work Phone: MCHC Auto (RBC) [Mass/Vol]on 05-22-2022 MCHC (RBC) [Mass/Vol] 33.3 g/dL 32-36 [facility] Work Phone: Mucus LM Ql (Urine sed)on Mucus Ql (Urine sed) 0 SEEN /hpf [facility] Work Phone: Nitrite Test strip Ql (U)on 05-22-2022 Nitrite Ql (U) Negative Negative [facility] Work Phone: Platelets bldon 05-22-2022 Platelets (Bld) [#/Vol] 205 10*3/uL 150-450 [facility] Work Phone: Protein Test strip Ql (U)on 05-22-2022 Protein Ql (U) 15 mg/dl Negative [facility] Work Phone: [phone] Squamous epithelial cells de tection in urine sediment by light microscopyon 05-22-2022 Epithelial cells.squamous LM Ql (Urine sed) 0-5 SEEN /hpf 0-5 [facility] Work Phone: Urine blood detectionon RBC Ql (U) Negative Negative [facility] Work Phone: RBC Ql (U) 0 SEEN /hpf 0-5 [facility] Work Phone: Urine clarityon 05-22-2022 Clarity (U) Clear Clear [facility] Work Phone: Urine color determinationon 05-22-2022 Color (U) Yellow Yellow [facility] Work Phone: Urine glucose detectionon Glucose Ql (U) Normal mg/dl Normal [facility] Work Phone: [phone] Urine leukocyte esterase det ection by dipstickon 05-22-2022 Leukocyte esterase Test strip Ql (U) 25 /ul Negative [facility] Work Phone: Urine pHon 05-22-2022 pH (U) 5.0 [pH] 5.0 - 8.0 [facility] Work Phone: Urine sediment bacteria coun t by microscopy (number/high power field)on 05-22-2022 Bacteria LM.HPF (Urine sed) [#/Area] 0 /[HPF] None Seen [facility] Work Phone: Urine specific gravity measu rementon 05-22-2022 Specific gravity (U) [Rel density] 1.020 1.002-1.030 [facility] Work Phone: Urobilinogen Auto test strip Ql (U)on 05-22-2022 Urobilinogen Ql (U) Normal mg/dl Normal [facility] Work Phone: Absolute lymphocyte counton 05-21-2022 Lymphocytes Auto (Unsp spec) [#/Vol] 1.09 10*3/uL 0.83-4.51 [facility] Work Phone: Basophil percentageon 2021 Basophil percentage 0 SEEN /hpf 0-5 [facility] Work Phone: Basophils/100 WBC (Bld) 0.3 % 0-1 [facility] Work Phone: Bilirubin [Mass/Vol] 0.30 mg/dL 0.20-1.00 [facility] Work Phone: Comment on above: For patients on eltr ombopag therapy, use of Dimension [place] TBIL is not recommended. Chloride [Moles/Vol] 108 mmol/L 98-107 [facility] Work Phone: Eosinophils/100 WBC (Bld) 1.4 % 0-5 [facility] Work Phone: Glucose [Mass/Vol] 116 mg/dL 74-106 [facility] Work Phone: [phone] Comment on above: Fasting Glucose resu lt from 100 to 125 mg/dL suggests IMPAIRED HOMEOSTASIS per A.D.A. criteria. Neutrophils (Bld) [#/Vol] 10.3 10*3/uL 2.0-7.7 [facility] Work Phone: [phone] Neutrophils/100 WBC (Bld) 85.3 % 47-70 [facility] Work Phone: Potassium [Moles/Vol] 4.3 mmol/L 3.5-5.1 [facility] Work Phone: Protein [Mass/Vol] 6.9 g/dL 6.4-8.2 [facility] Work Phone: Sodium [Moles/Vol] 139 mmol/L 136-145 [facility] Work Phone: WBC (Bld) [#/Vol] 12.1 10*3/uL 4.4-11.0 [facility] Work Phone: Bilirubin Test strip Ql (U)o n 05-21-2022 Bilirubin Ql (U) Negative Negative [facility] Work Phone: Blood erythrocytes count (nu mber/volume)on 05-21-2022 RBC (Bld) [#/Vol] 5.60 10*6/uL 4.6-6.2 [facility] Work Phone: Blood hemoglobin measurement (mass/volume)on 05-21-2022 Hemoglobin (Bld) [Mass/Vol] 15.5 g/dL 13.0-16.5 [facility] Work Phone: Blood lymphocytes/100 leukoc yteson 05-21-2022 Lymphocytes/100 WBC (Bld) 9.0 % 19-41 [facility] Work Phone: Blood monocytes/100 leukocyt eson 05-21-2022 Monocytes/100 WBC (Bld) 3.8 % 0-10 [facility] Work Phone: Blood platelet mean volumeon 05-21-2022 Platelet mean volume (Bld) [Entitic vol] 10.9 fL 6.2-12.0 [facility] Work Phone: Determination of erythrocyte mean corpuscular volume (MCV)on 05-21-2022 MCV (RBC) [Entitic vol] 84.5 fL 80-94 [facility] Work Phone: Hematocrit Auto (Bld) [Volum e fraction]on 05-21-2022 Hematocrit (Bld) [Volume fraction] 47.3 % 40-54 [facility] Work Phone: Ketones Test strip Ql (U)on 05-21-2022 Ketones Ql (U) 5 mg/dl Negative [facility] Work Phone: Laboratory - Chemistry and C hemistry - challengeon 05-21-2022 ALP [Catalytic activity/Vol] 102 U/L 45-117 [facility] Work Phone: ALT [Catalytic activity/Vol] 13 U/L 16-61 [facility] Work Phone: CO2 [Moles/Vol] 27.0 mmol/L 21.0-32.0 [facility] Work Phone: Globulin (S) [Mass/Vol] 3.3 g/dL 2.2-4.2 [facility] Work Phone: Lipase [Catalytic activity/Vol] 58 U/L 73-393 [facility] Work Phone: Urea nitrogen/Creatinine [Mass ratio] 15.2 mg/mg 10-20 [facility] Work Phone: Laboratory - Hematology and Cell countson 05-21-2022 Erythrocyte distribution width (RBC) [Entitic vol] 37.5 fL 35.1-43.9 [facility] Work Phone: [phone] Erythrocyte distribution width (RBC) [Ratio] 12.4 % 11.6-14.6 [facility] Work Phone: Immature granulocytes/100 WBC (Bld) 0.200 % 0.0-0.9 [facility] Work Phone: Comment on above: IG% - Immature Granu locytes (promyelocytes, myelocytes and metamyelocytes) > 1% indicates that a LEFT SHIFT is Present. MCH (RBC) [Entitic mass] 27.7 pg 27.0-32.0 [facility] Work Phone: Nucleated RBC/100 WBC (Bld) [Ratio] 0 % 0-5 [facility] Work Phone: MCHC Auto (RBC) [Mass/Vol]on 05-21-2022 MCHC (RBC) [Mass/Vol] 32.8 g/dL 32-36 [facility] Work Phone: Mucus LM Ql (Urine sed)on Mucus Ql (Urine sed) 0 SEEN /hpf [facility] Work Phone: Nitrite Test strip Ql (U)on 05-21-2022 Nitrite Ql (U) Negative Negative [facility] Work Phone: No Panel Informationon 05-21 Estimated Creatinine Clearance Calc 103.58 ml/min [facility] Work Phone: Estimated GFR (MDRD) Amer 139 mL/min >60 [facility] Work Phone: Comment on above: GFR Calc Estimated GFR (MDRD) Non-Af Amer 115 mL/min >60 [facility] Work Phone: Comment on above: Non- GFR Calc Platelets bldon 05-21-2022 Platelets (Bld) [#/Vol] 215 10*3/uL 150-450 [facility] Work Phone: Protein Test strip Ql (U)on 05-21-2022 Protein Ql (U) 15 mg/dl Negative [facility] Work Phone: Serum or plasma albumin cristina urement (mass/volume)on 05-21-2022 Albumin [Mass/Vol] 3.6 g/dL 3.2-5.0 [facility] Work Phone: Serum or plasma albumin/glob ulin mass ratioon 05-21-2022 Albumin/Globulin [Mass ratio] 1.1 {ratio} 0.9-2.4 [facility] Work Phone: Serum or plasma calcium cristina urement (mass/volume)on 05-21-2022 Calcium [Mass/Vol] 8.9 mg/dL 8.5-10.1 [facility] Work Phone: Serum or plasma creatinine m easurement (mass/volume)on 05-21-2022 Creatinine [Mass/Vol] 0.79 mg/dL 0.70-1.30 [facility] Work Phone: Comment on above: The validity of the calculated GFR & GFRAA in patients over 70 years has not been determined. Clinical correlation is essential. Serum or plasma urea nitroge n measurement (mass/volume)on 05-21-2022 Urea nitrogen [Mass/Vol] 12 mg/dL 7-18 [facility] Work Phone: Squamous epithelial cells de tection in urine sediment by light microscopyon 05-21-2022 Epithelial cells.squamous LM Ql (Urine sed) 0 SEEN /hpf 0-5 [facility] Work Phone: Thin prep Papanicolaou smear with manual screeningon 05-21-2022 Thin prep Papanicolaou smear with manual screening 10 U/L 15-37 [facility] Work Phone: Thin prep Papanicolaou smear with manual screening 4 5-15 [facility] Work Phone: Urine blood detectionon RBC Ql (U) Negative Negative [facility] Work Phone: RBC Ql (U) 0 SEEN /hpf 0-5 [facility] Work Phone: Urine clarityon 05-21-2022 Clarity (U) Clear Clear [facility] Work Phone: Urine color determinationon 05-21-2022 Color (U) Yellow Yellow [facility] Work Phone: Urine glucose detectionon Glucose Ql (U) Normal mg/dl Normal [facility] Work Phone: Urine leukocyte esterase det ection by dipstickon 05-21-2022 Leukocyte esterase Test strip Ql (U) Negative Negative [facility] Work Phone: Urine pHon 05-21-2022 pH (U) 6.0 [pH] 5.0 - 8.0 [facility] Work Phone: Urine sediment bacteria coun t by microscopy (number/high power field)on 05-21-2022 Bacteria LM.HPF (Urine sed) [#/Area] 0 /[HPF] None Seen [facility] Work Phone: Urine specific gravity measu rementon 05-21-2022 Specific gravity (U) [Rel density] 1.020 1.002-1.030 [facility] Work Phone: Urobilinogen Auto test strip Ql (U)on 05-21-2022 Urobilinogen Ql (U) Normal mg/dl Normal [facility] Work Phone: Bilirub Conj SerPl-mCncon Bilirubin.conjugated [Mass/Vol] mg/dL Normal <0.2 [facility] Comment on above: Order Comment: Speci men Type: BLOOD SPECIMEN Ordering Facility: [facility] Address: [address] [place] [address] Performed By: #### 3 016-3, 88565-2, 02850-9 #### [facility] CLIA [id number] [address] [place] [address] [place] CBC W Auto Differential pane l (Bld)on 03-17-2022 Basophils (Bld) [#/Vol] 0.13 10*3/uL High <0.11 [facility] Comment on above: Order Comment: Speci men Type: BLOOD SPECIMEN Ordering Facility: [facility] Address: [address] [place] [address] Performed By: #### 5 7021-8 #### [facility] CLIA [id number] [address] [place] [address] [place] Basophils/100 WBC (Bld) 0.7 % Normal [facility] Comment on above: Order Comment: Speci men Type: BLOOD SPECIMEN Ordering Facility: [facility] Address: [address] [place] [address] Performed By: #### 5 7021-8 #### [facility] CLIA [id number] [address] [place] [address] [place] Differential cell count method Nom (Bld) Auto Normal [facility] Comment on above: Order Comment: Speci men Type: BLOOD SPECIMEN Ordering Facility: [facility] Address: [address] [place] [address] Performed By: #### 5 7021-8 #### [facility] CLIA [id number] [address] [place] [id number] [place] Eosinophils (Bld) [#/Vol] 0.12 10*3/uL Normal <0.46 [facility] Comment on above: Order Comment: Speci men Type: BLOOD SPECIMEN [facility]ing [facility]: [facility] Address: [address] [place] [address] Performed By: #### 5 7021-8 #### [facility] CLIA [id number] [address] [place] [place] [id number] [place] Eosinophils/100 WBC (Bld) 0.7 % Normal [facility] Comment on above: Order Comment: Speci men Type: BLOOD SPECIMEN Ordering Facility: [facility] Address: [address] [place] [address] Performed By: #### 5 7021-8 #### [facility] CLIA [id number] [address] [place] [address] [place] Erythrocyte distribution width (RBC) [Ratio] 12.3 % Normal 11.5-15.0 [facility] Comment on above: Order Comment: Speci men Type: BLOOD SPECIMEN Ordering Facility: [facility] Address: [address] [place] [address] Performed By: #### 5 7021-8 #### [facility] CLIA [id number] [address] [place], [place] [id number] [place] Hematocrit (Bld) [Volume fraction] 52.0 % High 39.0-51.0 [facility] Comment on above: Order Comment: Speci men Type: BLOOD SPECIMEN Ordering Facility: [facility] Address: [address] [place] [address] Performed By: #### 5 7021-8 #### [facility] CLIA [id number] [address] [place], [place] [id number] [place] Hemoglobin (Bld) [Mass/Vol] 16.9 g/dL Normal 13.0-17.0 [facility] Comment on above: Order Comment: Speci men Type: BLOOD SPECIMEN Ordering Facility: [facility] Address: [address] [place] [address] Performed By: #### 5 7021-8 #### [facility] CLIA [id number] [address] [place] [address] [place] IMMATURE GRAN % 0.5 % Normal [facility] Comment on above: Order Comment: Speci men Type: BLOOD SPECIMEN Ordering Facility: [facility] Address: [address] [place] [address] Performed By: #### 5 7021-8 #### [facility] CLIA [id number] [address] [place] [address] [place] IMMATURE GRAN ABS 0.08 k/uL Normal <0.10 [facility] Comment on above: Order Comment: Speci men Type: BLOOD SPECIMEN Ordering Facility: [facility] Address: [address] [place] [address] Performed By: #### 5 7021-8 #### [facility] CLIA [id number] [address] [place] [address] [place] Lymphocytes (Bld) [#/Vol] 1.37 10*3/uL Normal 1.00-4.00 [facility] Comment on above: Order Comment: Speci men Type: BLOOD SPECIMEN Ordering Facility: [facility] Address: [address] [place] [address] Performed By: #### 5 7021-8 #### [facility] CLIA [id number] [address] [place] [address] [place] Lymphocytes/100 WBC (Bld) 7.9 % Normal [facility] Comment on above: Order Comment: Speci men Type: BLOOD SPECIMEN Ordering Facility: [facility] Address: [address] [place] [address] Performed By: #### 5 7021-8 #### [facility] CLIA [id number] [address] [place], [place] [id number] [place] MCH (RBC) [Entitic mass] 27.6 pg Normal 26.0-34.0 [facility] Comment on above: Order Comment: Speci men Type: BLOOD SPECIMEN Ordering Facility: [facility] Address: [address] [place] [address] Performed By: #### 5 7021-8 #### [facility] CLIA [id number] [address] [place] [address] [place] MCHC (RBC) [Mass/Vol] 32.5 g/dL Normal 30.5-36.0 [facility] Comment on above: Order Comment: Speci men Type: BLOOD SPECIMEN Ordering Facility: [facility] Address: [address] [place] [address] Performed By: #### 5 7021-8 #### [facility] CLIA [id number] [address] [place] [address] [place] MCV (RBC) [Entitic vol] 84.8 fL Normal 80.0-100.0 [facility] Comment on above: Order Comment: Speci men Type: BLOOD SPECIMEN Ordering Facility: [facility] Address: [address] [place] [address] Performed By: #### 5 7021-8 #### [facility] CLIA [id number] [address] [place] [address] [place] Monocytes (Bld) [#/Vol] 1.31 10*3/uL High <0.87 [facility] Comment on above: Order Comment: Speci men Type: BLOOD SPECIMEN Ordering Facility: [facility] Address: [address] [place] [address] Performed By: #### 5 7021-8 #### [facility] CLIA [id number] [address] [place] [address] [place] Monocytes/100 WBC (Bld) 7.5 % Normal [facility] Comment on above: Order Comment: Speci men Type: BLOOD SPECIMEN Ordering Facility: [facility] Address: [address] [place] [address] Performed By: #### 5 7021-8 #### [facility] CLIA [id number] [address] [address] [place] Neutrophils (Bld) [#/Vol] 14.35 10*3/uL High 1.45-7.50 [facility] Comment on above: Order Comment: Speci men Type: BLOOD SPECIMEN Ordering Facility: [facility] Address: [address] [place] [address] Performed By: #### 5 7021-8 #### [facility] CLIA [id number] [address] [address] [place] Neutrophils/100 WBC (Bld) 82.7 % Normal [facility] Comment on above: Order Comment: Speci men Type: BLOOD SPECIMEN Ordering Facility: [facility] Address: [address] [place] [address] Performed By: #### 5 7021-8 #### [facility] CLIA [id number] [address] [place] [address] [place] Nucleated RBC (Bld) [#/Vol] 10*3/uL Normal <0.01 [facility] Comment on above: Order Comment: Speci men Type: BLOOD SPECIMEN Ordering Facility: [facility] Address: [address] [place] [address] Performed By: #### 5 7021-8 #### [facility] CLIA [id number] [address] [place] [id number] [place] Nucleated RBC/100 WBC (Bld) [Ratio] 0.0 /100 WBC Normal [facility] Comment on above: Order Comment: Speci men Type: BLOOD SPECIMEN Ordering Facility: [facility] Address: [address] [place] [address] Performed By: #### 5 7021-8 #### [facility] CLIA [id number] [address] [place] [address] [place] Platelet mean volume (Bld) [Entitic vol] 11.9 fL Normal 9.0-12.7 [facility] Comment on above: Order Comment: Speci men Type: BLOOD SPECIMEN Ordering Facility: [facility] Address: [address] [place] [address] Performed By: #### 5 7021-8 #### [facility] CLIA [id number] [address] [place] [address] [place] Platelets (Bld) [#/Vol] 201 10*3/uL Normal 150-400 [facility] Comment on above: Order Comment: Speci men Type: BLOOD SPECIMEN Ordering Facility: [facility] Address: [address] [place] [address] Result Comment: No c lot detected Performed By: #### 5 7021-8 #### [facility] CLIA [id number] [address] [place] [address] [place] RBC (Bld) [#/Vol] 6.13 10*6/uL High 4.20-6.00 [facility] Comment on above: Order Comment: Speci men Type: BLOOD SPECIMEN Ordering Facility: [facility] Address: [address] [place] [address] Performed By: #### 5 7021-8 #### [facility] CLIA [id number] [address] [place] [address] [place] WBC (Bld) [#/Vol] 17.36 10*3/uL High 3.70-11.00 [facility] Comment on above: Order Comment: Speci men Type: BLOOD SPECIMEN Ordering Facility: [facility] Address: [address] [place] [address] Performed By: #### 5 7021-8 #### [facility] CLIA [id number] [address] [place], [place] [id number] [place] Comprehensive metabolic 2000 panelon 03-17-2022 Albumin [Mass/Vol] 4.8 g/dL Normal 3.9-4.9 [facility] Comment on above: Order Comment: Speci men Type: BLOOD SPECIMEN Ordering Facility: [facility] Address: [address] [place] [address] Performed By: #### 3 016-3, 81390-2, 49348-3 #### [facility] CLIA [id number] [address] [address] [place] ALP [Catalytic activity/Vol] 127 U/L High 38-113 [facility] Comment on above: Order Comment: Speci men Type: BLOOD SPECIMEN Ordering Facility: [facility] Address: [address] [place] [address] Performed By: #### 3 016-3, 94014-1, 45062-8 #### [facility] CLIA [id number] [address] [place] [id number] [place] ALT [Catalytic activity/Vol] 13 U/L Normal 10-54 [facility] Comment on above: Order Comment: Speci men Type: BLOOD SPECIMEN Ordering Facility: [facility] Address: [address] [place] [address] Performed By: #### 3 016-3, , 72285-4 #### [facility] [facility] CLIA [id number] [address] [address] [place] Anion gap [Moles/Vol] 11 mmol/L Normal 9-18 [facility] Comment on above: Order Comment: Speci men Type: BLOOD SPECIMEN Ordering Facility: [facility] Address: [address] [place] [address] Performed By: #### 3 016-3, , 96416-1 #### [facility] CLIA [id number] [address] [address] [place] AST [Catalytic activity/Vol] 15 U/L Normal 14-40 [facility] Comment on above: Order Comment: Speci men Type: BLOOD SPECIMEN Ordering Facility: [facility] Address: [address] [place] [address] Performed By: #### 3 016-3, 50862-9, 98170-9 #### [facility] CLIA [id number] [address] [address] [place] Bilirubin [Mass/Vol] 0.5 mg/dL Normal 0.2-1.3 [facility] Comment on above: Order Comment: Speci men Type: BLOOD SPECIMEN Ordering Facility: [facility] Address: [address] [place], [place] [id number] Performed By: #### 3 016-3, 92004-7, 56773-5 #### [facility] CLIA [id number] [address]00 [place] [address] [place] Calcium [Mass/Vol] 9.2 mg/dL Normal 8.5-10.2 [facility] Comment on above: Order Comment: Speci men Type: BLOOD SPECIMEN Ordering Facility: [facility] Address: [address] [place], [place] [id number] Performed By: #### 3 016-3, 69651-6, 82186-5 #### [facility] CLIA [id number] [address] [place] [address] [place] Chloride [Moles/Vol] 97 mmol/L Normal 97-105 [facility] Comment on above: Order Comment: Speci men Type: BLOOD SPECIMEN Ordering Facility: [facility] Address: [address] [place] [address] Performed By: #### 3 016-3, 79866-0, 42946-9 #### [facility] CLIA [id number] [address] [place] [id number] [place] CO2 [Moles/Vol] 27 mmol/L Normal 22-30 [facility] Comment on above: Order Comment: Speci men Type: BLOOD SPECIMEN Ordering Facility: [facility] Address: [address] [place] [address] Performed By: #### 3 016-3, 25639-6, 78104-2 #### [facility] CLIA [id number] [address] [place] [id number] [place] Creatinine [Mass/Vol] 0.72 mg/dL Low 0.73-1.22 [facility] Comment on above: Order Comment: Leilani noland Type: BLOOD SPECIMEN Ordering Facility: [facility] Address: [address] [place], [place] [phone] Performed By: #### 3 016-3, 70800-8, 48150-8 #### [facility] CLIA [id number] [address] [place] [address] [place] ESTIMATED GLOMERULAR FILTRATION RATE 118 mL/min/1.73m??? Normal >=60 [facility] Comment on above: Order Comment: Leilani noland Type: BLOOD SPECIMEN Ordering Facility: [facility] Address: [address] [place], [place] [phone] Result Comment: Trent mated Glomerular Filtration Rate [...] actual GFR. Performed By: #### 3 016-3, 80301-2, 93993-9 #### [facility] CLIA [id number] [address] [place] [address] [place] Glucose [Mass/Vol] 142 mg/dL High 74-99 [facility] Comment on above: Order Comment: Leilani noland Type: BLOOD SPECIMEN Ordering Facility: [facility] Address: [address] [place] [address] Result Comment: The [place] Diabetes Association (ADA) provides guidance for cutoff [...] Standards of Medical Care in Diabetes 2016, [place] [employer] Association. Diabetes Care. 2016.39(Suppl 1). Performed By: #### 3 016-3, 32838-1, 34194-4 #### [facility] CLIA [id number] [address] [place] [address] [place] Potassium [Moles/Vol] 3.9 mmol/L Normal 3.7-5.1 [facility] Comment on above: Order Comment: Speci men Type: BLOOD SPECIMEN Ordering Facility: [facility] Address: [address] [place] [address] Performed By: #### 3 016-3, 88701-8, 35395-8 #### [facility] CLIA [id number] [address] [place] [address] [place] Protein [Mass/Vol] 7.3 g/dL Normal 6.3-8.0 [facility] Comment on above: Order Comment: Speci men Type: BLOOD SPECIMEN Ordering Facility: [facility] Address: [address] [place] [address] Performed By: #### 3 016-3, 27788-0, 30098-4 #### [facility] CLIA [id number] [address] [place] [address] [place] Sodium [Moles/Vol] 135 mmol/L Low 136-144 [facility] Comment on above: Order Comment: Speci men Type: BLOOD SPECIMEN Ordering Facility: [facility] Address: [address] [place] [address] Performed By: #### 3 016-3, 23667-2, 21346-8 #### [facility] CLIA [id number] [address] [place] [address] [place] Urea nitrogen [Mass/Vol] 10 mg/dL Normal 9-24 [facility] Comment on above: Order Comment: Speci men Type: BLOOD SPECIMEN Ordering Facility: [facility] Address: [address] [place] [address] Performed By: #### 3 016-3, 62649-9, 76177-7 #### [facility] CLIA [id number] [address] [place] [address] [place] HAV IgM Ser Qlon 03-17-2022 HAV IgM Ql (S) Negative Normal Negative [facility] Comment on above: Order Comment: Leilani ludin Type: BLOOD SPECIMEN Ordering Facility: [facility] Address: [address] [place] [address] Result Comment: No e vidence of recent infection with Hepatitis A virus. Performed By: #### 1 1011-4 #### [facility] CLIA [id number] [address] [place] [address] [place] HBV core IgM Ser Qlon 2021 HBV core IgM Ql (S) Negative Normal Negative [facility] Comment on above: Order Comment: Leilani ludin Type: BLOOD SPECIMEN Ordering Facility: [facility] Address: [address] [place] [address] Result Comment: No e vidence of recent infection with Hepatitis B virus. Should recent infection be suspected, repeat testing may be considered 3-4 weeks after this draw. Performed By: #### 1 0900-9, MICRO, HIV12M, 67105-5, 57106-7 #### [facility] CLIA [id number] [address] [place] [address] [place] HBV surface Ab IA Ql (S)on 0 03-17-2022 HBV surface Ag Ql (S) Negative Normal Negative [facility] Comment on above: Order Comment: Jovannyjacques noland Type: BLOOD SPECIMEN Ordering Facility: [facility] Address: [address] [place] [address] Performed By: #### 1 0900-9, MICRO, HIV12M, 07985-3, 77575-4 #### [facility] CLIA [id number] [address] [place] [address] [place] HCV Ab Ser Qlon 03-17-2022 HCV Ab Ql (S) Positive Abnormal Negative [facility] Comment on above: Order Comment: Leilani noland Type: BLOOD SPECIMEN Ordering Facility: [facility] Address: [address] [place] [address] Result Comment: Conf irmation with Hepatitis C RNA has been ordered and charged. Performed By: #### 1 6128-1, 51614-3 #### [facility] CLIA [id number] [address] [place] [address] [place] HCV RNA SerPl MEME+probe-aCnc on 03-17-2022 HCV RNA MEME+probe Qn Not detected Normal HCV RNA not detected by PCR. [facility] Comment on above: Order Comment: Leilani noland Type: BLOOD SPECIMEN Ordering Facility: [facility] Address: [address] [place], [place] [address] Performed By: #### 1 6128-1, 59191-9 #### [facility] CLIA [id number] [address] [place] [address] [place] HCV RNA MEME+probe Qn Not detected Normal HCV RNA not detected by PCR. [facility] Comment on above: Order Comment: Leilani noland Type: BLOOD SPECIMEN Ordering Facility: [facility] Address: [address] [place], [place] [phone] Performed By: #### 1 1011-4 #### [facility] CLIA [id number] [address] [place] [address] [place] HIV-1/2 AB CONFIRMATORYon HIV 1 and 2 Ab IA.rapid Nom Negative Normal Negative [facility] Comment on above: Order Comment: Leilani noland Type: BLOOD SPECIMEN Ordering Facility: [facility] Address: [address] [place] [address] Result Comment: The result suggests no evidence [...] to 3 weeks after this. HIV Information: [place] Rev. Code 3701.243(E): This information has been [...] diagnoses. Performed By: #### 1 1011-4 #### [facility] CLIA [id number] [address] [place] [address] [place] THYROID PEROXIDASE ANTIBODY BLOODon 03-17-2022 TPO Ab Qn [IU]/mL Normal <5.6 [facility] Comment on above: Order Comment: Speci men Type: BLOOD SPECIMEN Ordering Facility: [facility] Address: [address] [place] [address] Result Comment: Thyr oid Peroxidase Antibody test is used as an aid in diagnosis of autoimmune thyroid disease. Clinical correlation is required. Performed By: #### 1 1011-4 #### [facility] [place] [id number] [address] [place] [address] [place] TSH SerPl-aCncon 03-17-2022 TSH Qn 0.918 m[IU]/L Normal 0.270-4.200 [facility] Comment on above: Order Comment: Leilani noland Type: BLOOD SPECIMEN Ordering Facility: [facility] Address: [address] [place] [address] Performed By: #### 3 016-3, 69380-0, 47723-0 #### [facility] [place] [id number] [address] [place] [address] [place] CNPLinda 03-05-2022 [facility] JOSE MCNAMARA ([id number]) 1980 M Date Time Provider Department 03/05/22 REINALDO PEREIRA [facility] During your visit today, we recorded the [...] Date Reviewed: 03/04/2022 Reviewed by: Edward Powell APRN.ROLL OR TAPE EDGE MACHINE OPERATOR - Fully Assessed Reason for Visit: Results [...] Status:Closed by KLAUDIA MARTINEZ on 03/05/22 Normal [facility] CNOVon 03-04-2022 CNOV Office Visit ([facility] ) ----- JOSE MCNAMARA ([id number]) 1980 M Date Time Provider Department 03/04/22 11:15 AM EDWARD POWELL [facility] During your visit today, we recorded the following information about you: Temperature Pulse Respiration Blood pressure 98.6 degrees 77/minute 18/minute 102/74 Weight 62.9 kg Edward Powell APRN.ROLL OR TAPE EDGE MACHINE OPERATOR 03/04/2022 11:44 AM Signed Subjective HPI Nontoxic-appearing [...] abuse - History of bleeding peptic ulcer 2015 excess ibuprofen - History of head injury 2010 and 1997 - History of heroin use - Migraine since head injury PAST SURGICAL HISTORY Procedure Laterality Date - COLONOSCOPY 2014 negative - PAST SURGICAL HISTORY OF 1997 [...] drainage, sw (more content not included)... [facility] ----- JOSE MCNAMARA ([id number]) 1980 M Date Time Provider Department 06/03/21 MILIND CLEMONS During your visit today, we recorded the following information about you: Roopa Rubysenait Cardozo 06/03/2021 8:27 AM Signed ----- Message from [...] (FLONASE) 50 mcg/actuation nasal spray Use 1 [facility] [place] in each nostril once daily. - propranolol [...] by ROOPA CONTEH MA on 06/03/21 Normal [facility] Basic Metabolic Panelon 05-2 Calcium 9.2 mg/dL Normal 8.4-10.2 [facility] [employer] [facility] Comment on above: Performed By: #### H EMDF, LFT3, BMP3, ETOH4 ####[employer] [place] [address] Glucose mass conc 71 mg/dL Normal 70-100 [facility] [employer] [facility] Comment on above: Performed By: #### H EMDF, LFT3, BMP3, ETOH4 ####[employer] [place] Urea nitrogen 12 mg/dL Normal 7-20 [facility] Comment on above: Performed By: #### H EMDF, LFT3, BMP3, ETOH4 ####[place] [address] [place], [place] Anion gap 13 Normal [facility] Comment on above: Performed By: #### H EMDF, LFT3, BMP3, ETOH4 ####[place] [address] [place], [place] CO2 24 mmol/L Normal 22-30 [facility] Comment on above: Performed By: #### H EMDF, LFT3, BMP3, ETOH4 ####[place] [address] [place], [place] Creatinine 0.75 mg/dL Normal 0.52-1.25 [facility] Comment on above: Performed By: #### H EMDF, LFT3, BMP3, ETOH4 ####[address] eGFR (black) mL/min/{1.73_m2} Normal >60 [facility] Comment on above: Performed By: #### H EMDF, LFT3, BMP3, ETOH4 ####[address] eGFR (non-black) mL/min/{1.73_m2} Normal >60 [facility] Comment on above: Result Comment: Sour ce- MDRD equation with creatinine calibration to IDMS(NKDEP) eGFR not recommended for drug dose adjustment Performed By: #### H EMDF, LFT3, BMP3, ETOH4 ####[place] [address] [place], [place] Chloride 102 mmol/L Normal 98-107 [facility] Comment on above: Performed By: #### H EMDF, LFT3, BMP3, ETOH4 ####[place] [address] [place], [place] Potassium molar conc 4.3 mmol/L Normal 3.5-5.1 [facility] Comment on above: Performed By: #### H EMDF, LFT3, BMP3, ETOH4 ####[facility] [place] [place] [address] Sodium 139 mmol/L Normal 137-145 [facility] Comment on above: Performed By: #### H EMDF, LFT3, BMP3, ETOH4 ####[place] [address] [place] [address] Drugs of Abuseon 04-11-2018 Opiates, Ur Positive Normal [facility] Comment on above: Performed By: #### D RGA4, THC4 ####[place] [address] [place] [facility] [place] Phencyclidine (PCP), Ur Negative Normal [facility] Comment on above: Result Comment: The expected [...] performed using non-forensic procedures. Performed By: #### Elaine MCDERMOTT, THC4 ####[place] [address] [facility] [place] Cocaine, Ur Negative Normal [facility] Comment on above: Performed By: #### Elaine MCDERMOTT, THC4 ####[place] [address] [place] [address] Methadone, Ur Negative Normal [facility] Comment on above: Performed By: #### Elaine MCDERMOTT, THC4 ####[place] [address] [place] [address] Amphetamines, Ur Negative Normal [facility] Comment on above: Performed By: #### Elaine [place]4, THC4 ####[place] [address] [place] [address] Benzodiazepines, Ur Negative Normal [facility] Comment on above: Performed By: #### Elaine MCDERMOTT, THC4 ####[address] Barbiturates, Ur Negative Normal [facility] Comment on above: Performed By: #### D SHARRON, THC4 ####[address] Oxycodone/Oxymorphine, Ur Negative Normal [facility] Comment on above: Performed By: #### D SHARRON, THC4 ####[address] Ethanol Serum/Plasmaon 04-11 Ethanol-Serum/Plasma < 0.010 Normal 0.000-0.[address] [facility] Comment on above: Result Comment: NOTE : This result is for medical treatment only. Analysis performed using non-forensic procedures. Performed By: #### H EMDF, LFT3, BMP3, ETOH4 ####[address] Hemogram w/ Autodiffon 04-11 Abs Baso Cnt 0.1 10*3/uL Normal 0.0-0.2 [facility] Comment on above: Performed By: #### H EMDF, LFT3, BMP3, ETOH4 ####[address] Basophils/100 WBC Auto (Bld) 0.6 % Normal 0.0-2.0 [facility] Comment on above: Performed By: #### H EMDF, LFT3, BMP3, ETOH4 ####[address] Eosinophils 0.1 10*3/uL Normal 0.0-0.5 [facility] Comment on above: Performed By: #### H EMDF, LFT3, BMP3, ETOH4 ####[address] Eosinophils/100 leukocytes 0.5 % Low 1.0-6.0 [facility] Comment on above: Performed By: #### H EMDF, LFT3, BMP3, ETOH4 ####[address] Erythrocyte distribution width Auto Ratio (RBC) 13.1 % Normal 11.5-14.5 [facility] Comment on above: Performed By: #### H EMDF, LFT3, BMP3, ETOH4 ####[address] Erythrocytes (RBC) 5.79 10*6/uL Normal 4.40-5.90 [facility] Comment on above: Performed By: #### H EMDF, LFT3, BMP3, ETOH4 ####[address] Granulocytes/100 WBC (Bld) 78.4 % Normal 40.0-80.0 [facility] Comment on above: Performed By: #### H EMDF, LFT3, BMP3, ETOH4 ####[address] Hematocrit (HCT) 46.7 % Normal 40.0-52.0 [facility] Comment on above: Performed By: #### H EMDF, LFT3, BMP3, ETOH4 ####[address] Hemoglobin mass conc (Bld) 15.6 g/dL Normal 13.0-18.0 [facility] Comment on above: Performed By: #### H EMDF, LFT3, BMP3, ETOH4 ####[address] Lymphocytes 2.7 10*3/uL Normal 1.0-4.3 [facility] Comment on above: Performed By: #### H EMDF, LFT3, BMP3, ETOH4 ####[address] Lymphocytes/100 leukocytes 13.6 % Low 20.0-40.0 [facility] Comment on above: Performed By: #### H EMDF, LFT3, BMP3, ETOH4 ####[address] MCH 27.0 pg Normal 26.0-34.0 [facility] Comment on above: Performed By: #### H EMDF, LFT3, BMP3, ETOH4 ####[address] MCHC mass conc (RBC) 33.4 % Normal 32.0-36.0 [facility] Comment on above: Performed By: #### H EMDF, LFT3, BMP3, ETOH4 ####[address] MCV 80.7 fL Normal 80.0-98.0 [facility] Comment on above: Performed By: #### H EMDF, LFT3, BMP3, ETOH4 ####[address] Monocytes 1.4 10*3/uL High 0.0-0.8 [facility] Comment on above: Performed By: #### H EMDF, LFT3, BMP3, ETOH4 ####[address] Monocytes/100 leukocytes 6.9 % Normal 2.0-10.0 [facility] Comment on above: Performed By: #### H EMDF, LFT3, BMP3, ETOH4 ####[address] Neutrophils 15.4 10*3/uL High 1.8-7.0 [facility] Comment on above: Performed By: #### H EMDF, LFT3, BMP3, ETOH4 ####[address] Platelet mean volume (PMV) 9.4 fL Normal 7.4-10.4 [facility] Comment on above: Performed By: #### H EMDF, LFT3, BMP3, ETOH4 ####[address] Platelets 252 10*3/uL Normal 140-440 [facility] Comment on above: Performed By: #### H EMDF, LFT3, BMP3, ETOH4 ####[place] [place], [place] WBC (Leukocytes) 19.7 10*3/uL High 3.6-10.7 [facility] Comment on above: Performed By: #### H EMDF, LFT3, BMP3, ETOH4 ####[address] Hepatic Functionon 8 Alanine aminotransferase (ALT) 43 U/L Normal 13-69 [facility] Comment on above: Performed By: #### H EMDF, LFT3, BMP3, ETOH4 ####[address] Alkaline phosphatase (ALP) 70 U/L Normal 38-126 [facility] Comment on above: Performed By: #### H EMDF, LFT3, BMP3, ETOH4 ####[address] Aspartate aminotransferase (AST) 21 U/L Normal 15-46 [facility] Comment on above: Performed By: #### H EMDF, LFT3, BMP3, ETOH4 ####[address] Bilirubin (direct) 0.0 mg/dL Normal 0.0-0.3 [facility] Comment on above: Performed By: #### H EMDF, LFT3, BMP3, ETOH4 ####[address] Bilirubin (total) 0.5 mg/dL Normal 0.2-1.3 [facility] Comment on above: Performed By: #### H EMDF, LFT3, BMP3, ETOH4 ####[address] Protein 7.8 g/dL Normal 6.3-8.2 [facility] Comment on above: Performed By: #### H EMDF, LFT3, BMP3, ETOH4 ####[address] Albumin 4.7 g/dL Normal 3.5-5.0 [facility] Comment on above: Performed By: #### H EMDF, LFT3, BMP3, ETOH4 ####[employer] [place] [address] THC, Urineon 04-11-2018 THC, Ur Positive Normal [facility] Comment on above: Result Comment: Thre shold= 50 ng/mL Performed By: #### D RGA4, THC4 ####[employer] [place] [address] Stool lactoferrin detection by immunoassay Lactoferrin IA Ql (Stl) [facility] Work Phone: Vital Signs Date Time Vital Sign Value Performing Clinician Facility 06-03-2025 14:47-0400 Diastolic blood pressure 48 mm[Hg] Dr. Josselyn Galindo MD Work Phone: [facility] 06-03-2025 14:47-0400 Heart rate 69 /min Dr. Josselyn Galindo MD Work Phone: [facility] 06-03-2025 14:47-0400 Inhaled oxygen flow rate 2 L/min Dr. Josselyn Galindo MD Work Phone: [facility] 06-03-2025 14:47-0400 Respiratory rate 15 /min Dr. Josselyn Galindo MD Work Phone: [facility] 06-03-2025 14:47-0400 SaO2% (BldA) [Mass fraction] 95 % Dr. Josselyn Galindo MD Work Phone: [facility] 06-03-2025 14:47-0400 Systolic blood pressure 82 mm[Hg] Dr. Josselyn Galindo MD Work Phone: [facility] 06-03-2025 12:48-0400 Body height 175.[address] Josselyn Galindo MD Work Phone: [facility] 06-03-2025 12:48-0400 Body mass index (BMI) [Ratio] 22.6 kg/m2 Dr. Josselyn Galindo MD Work Phone: [facility] 06-03-2025 12:48-0400 Body temperature 98.6 [degF] Dr. Josselyn Galindo MD Work Phone: [facility] 06-03-2025 12:48-0400 Body weight 69.[address] Josselyn Galindo MD Work Phone: [facility] 05-27-2025 20:52-0400 Diastolic blood pressure 72 mm[Hg] No Generic Provider [facility] 05-27-2025 20:52-0400 Heart rate 72 /min No Generic Provider [facility] 05-27-2025 20:52-0400 Respiratory rate 16 /min No Generic Provider [facility] 05-27-2025 20:52-0400 SaO2% (BldA) [Mass fraction] 94 % No Generic Provider [facility] 05-27-2025 20:52-0400 Systolic blood pressure 138 mm[Hg] No Generic Provider [facility] 05-27-2025 17:59-0400 Body height 175.3 cm No Generic Provider [facility] 05-27-2025 17:59-0400 Body mass index (BMI) [Ratio] 21.41 kg/m2 No Generic Provider [facility] 05-27-2025 17:59-0400 Body temperature 98.4 [degF] No Generic Provider [facility] 05-27-2025 17:59-0400 Body weight 65.77 kg No Generic Provider [facility] 04-19-2025 11:20-0400 Body mass index (BMI) [Ratio] 20.78 kg/m2 Polly Falls DO Work Phone: [facility] 04-19-2025 11:20-0400 Body weight 63.82 kg Polly Falls DO Work Phone: [facility] 04-19-2025 11:20-0400 Diastolic blood pressure 60 mm[Hg] Polly Falls DO Work Phone: [facility] 04-19-2025 11:20-0400 Heart rate 67 /min Polly Aviles DO Work Phone: [facility] 04-19-2025 11:20-0400 Systolic blood pressure 104 mm[Hg] Polly Aviles DO Work Phone: [facility] 04-04-2025 10:04-0400 Body height 175.[address] Josselyn Galindo MD Work Phone: [facility] 04-04-2025 10:04-0400 Body mass index (BMI) [Ratio] 21.5 kg/m2 Dr. Josselyn Galindo MD Work Phone: [facility] 04-04-2025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 Care Physician [facility] Gastroenterology Start: 11-27-2022 End: 11-27-[address] [facility] Work Phone: [facility] Work Phone: Start: 11-27-2022 End: 11-27-2022 Patient encounter procedure [facility] Work Phone: [facility] Start: 11-13-2022 End: 11-13-[address] [facility] Work Phone: [facility] Work Phone: Start: 11-13-2022 End: 11-13-2022 Patient encounter procedure [facility] Work Phone: [facility] Start: 11-07-2022 Telephone encounter Reinaldoiris mcmahan PA-C Work Phone: [facility] Comment on above: Results Start: 11-06-2022 End: 11-06-2022 ambulatory SILVIA NUNEZ Facility:[facility] Start: 11-06-2022 End: 11-06-2022 Office outpatient visit 15 minutes Edward Powell APRN.CNP Work Phone: [facility] Comment on above: Viral illness (Prima ry Dx) Start: 10-10-2022 End: 10-10-2022 Patient encounter procedure [facility] Work Phone: [facility] Start: 09-26-2022 End: 09-26-2022 Patient encounter procedure [facility] Work Phone: [facility] Start: 09-11-2022 End: 09-11-2022 Patient encounter procedure [facility] Work Phone: [facility] Start: 09-11-2022 Non-patient / Non-visit [facility] Work Phone: [facility] Start: 09-11-2022 End: 09-11-2022 Admission to same day surgery center [facility] Work Phone: [facility]-Endoscopy Start: 08-26-2022 End: 08-26-2022 Patient encounter procedure [facility] Work Phone: [facility] Start: 08-14-2022 End: 08-15-[address] [facility] Start: 08-05-2022 End: 08-05-2022 Patient encounter procedure [facility] Work Phone: [facility]-Laboratory, Specimen Start: 07-15-2022 End: 07-15-[address] [facility] Work Phone: [facility] Work Phone: Start: 07-15-2022 End: 07-15-2022 Patient encounter procedure [facility] Work Phone: [facility] Start: 05-22-2022 End: 05-22-2022 Emergency department patient visit [facility] Work Phone: [facility] Start: 05-21-2022 End: 05-21-2022 Emergency department patient visit [facility] Work Phone: [facility] Start: 03-19-2022 End: 03-19-2022 Patient encounter procedure [facility] Work Phone: [facility]opa[facility] Start: 03-17-2022 End: 03-17-2022 [facility] Start: 03-11-2022 End: 03-11-2022 Patient encounter procedure [facility] Work Phone: [facility] Start: 03-05-2022 Telephone encounter Reinaldo CoyC Work Phone: [facility] Comment on above: Results Start: 03-04-2022 End: 03-04-2022 ambulatory EDWARD POWELL Facility:[facility] Start: 03-04-2022 End: 03-04-2022 ambulatory SILVIA NUNEZ Facility:[facility] Start: 03-04-2022 End: 03-04-2022 Patient encounter procedure 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 [facility] 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 Josselyn Galindo MD Work Phone: Start: 06-03-2025 X-ray of chest, PA a nd lateral views Dr. Josselyn Galindo MD Work Phone: Start: 06-03-2025 SARS-CoV-2, Influenz a & RSV (PCR) Dr. Josselyn Galindo MD Work Phone: Start: 06-03-2025 D-dimer assay, quantitative Dr. Josselyn Galindo MD Work Phone: Comment on above: NORMAL D-Dimer level (<0.50) indicates no DVT or PE. Start: 06-03-[address] Josselyn Galindo MD Work Phone: Start: 05-27-2025 Urnls dip stick/tabl et rgnt auto w/o microscopy Yoko CHAUDHARY-C Work Phone: Start: 05-27-2025 Ct cervical spine w/ o contrast material Yoko CHAUDHARY-C Work Phone: Start: 05-27-2025 Ct head/brain w/o co ntrast material Yoko CHAUDHARY-C Work Phone: Start: 05-27-2025 Radiologic exam ches t single view Yoko CHAUDHARY-C Work Phone: Start: 05-27-2025 Radiologic examinati on pelvis 1/2 views Yoko CHAUDHARY-C Work Phone: Start: 05-27-2025 Comprehensive metabolic panel Yoko CHAUDHARY-C Work Phone: Start: 05-27-2025 Ethanol [Mass/volume ] in Serum or Plasma Yoko CHAUDHARY-C Work Phone: Start: 04-04-2025 Dehydroepiandrostero ne sulfate [...] 08-28-2023 Videoswallow No Primary Care Physician Start: 08-18-2023 CT of chest without contrast No Primary Care Physician Start: 08-13-2023 Computed tomography of abdomen and pelvis with contrast No Primary Care Physician Start: 03-27-2023 Diagnostic radiograp hy of abdomen No Primary Care Physician Start: 03-03-2023 Computed tomography of abdomen and pelvis with contrast No Primary Care Physician Start: 11-06-2022 COVID WITH FLUA+B, ROUTINE Edward Powell APRNMICHAEL Work Phone: Start: 05-22-2022 Computed tomography of abdomen and pelvis with intravenous contrast [facility] Work Phone: Start: 03-11-2022 X-ray of eye for foreign body [facility] Work Phone: Start: 03-11-2022 MRI of cervical spine [facility] Work Phone: Start: 02-21-2022 X-ray of cervical spine [facility] Work Phone: Start: 11-22-2021 CT cervical spine wi thout contrast [facility] Work Phone: Start: 11-22-2021 Plain chest X-ray [facility] Work Phone: Lactoferrin measurement [facility] Work Phone: Plan of Treatment Date Care Activity Detail Author Start: 2031 Zoster Vaccines (1 of 2) Zoste r Vaccines (1 of 2) [facility] Start: 05-27-2026 Diabetes mellitus screening Diabetes Screening [facility] Start: 07-17-2025 Influenza vaccination [facility] Start: 06-03-2025 Hepatic function panel [facility] Start: 06-03-2025 End: 06-03-2025 [facility] Start: 06-03-2025 Bacteria identified in Blood by Culture Blood Culture [facility] Start: 06-03-2025 Bacteria identified in Urine by Culture Urine Culture [facility] Start: 11-03-2024 End: 11-03-2024 Patient encounter procedure 11/03/2024 10:30 AM EST Office Visit [facility] Medicine [address] [place] [address] [place] [address] Polly Aviles DO [address] [place] [phone] [facility] Orth[facility] Start: 07-17-2024 COVID-19 Vaccine ( season) COVID-19 Vaccine ( season) [facility] Start: 07-17-2024 COVID-19 Vaccine ( season) COVID-19 Vaccine ( season) [facility] Start: 07-17-2024 Influenza vaccination Influenza Vacc ine (#1) [facility] Start: 05-17-2024 End: 05-17-2024 Patient encounter procedure 05/17/2024 10:15 AM EDT Office Visit [facility] [address] [place] [address] [place] [phone] Polly Aviles DO [address] [place] [address] [id number] [facility] Start: 03-08-2024 Patient discharge [facility] Start: 01-11-2024 Measurement of substance [facility] Start: 12-21-2023 [facility] Start: 11-26-2023 End: 11-26-2023 Patient encounter procedure 11/26/2023 10:30 AM EST Office Visit [facility] Medicine [address] [place] [address] Medical [place] [phone] Polly Aviles DO [address] [place] [phone] [facility] Start: 09-29-2023 Anes esoph thyrd lar ynx trach & lymph neck 1yr ANESTH NECK ORGAN 1YR/> [facility] Start: 09-29-2023 Laryngoscopy w/biops y microscope/telescope LARYNGOSCOPY W/BX & OP SCOPE [facility] Start: 09-29-2023 Patient discharge [facility] Start: 09-01-2023 Patient referral [facility] Work Phone: Start: 08-13-2023 End: 08-13-2023 Patient encounter procedure 08/13/2023 10:00 AM EDT Office Visit [facility] Orthopedic [facility] Medicine [address] [place] [address] [place] [address] Polly Aviles DO [address] [place] [phone] [facility] Orth[facility] Start: 07-17-2023 Influenza vaccination [facility] Start: 09-11-2022 Colonoscopy w/biopsy single/multiple COLONOSCOPY AND BIOPSY [facility] Start: 09-11-2022 Egd transoral biopsy single/multiple EGD BIOPSY SINGLE/MULTIPLE [facility] Start: 09-11-2022 Patient discharge [facility] Start: 07-17-2022 Influenza vaccination [facility] Start: 07-15-2022 Nfct agnt genotyp nu cleic acid hepatitis c virus GENOTYPE DNA/RNA HEP C [facility] Work Phone: Start: 03-19-2022 Patient referral [facility] Work Phone: Start: 11-16-2021 DEPRESSION ASSESSMENT DEPRESSION ASS ESSMENT [facility] Start: 2016 LIPID SCREEN LIPID SCREEN [facility] Start: 2003 DTaP/Tdap/Td Vaccine s (1 - Tdap) DTaP/Tdap/Td Vaccines (1 - Tdap) [facility] Start: 2000 DTaP/Tdap/Td Vaccine s (1 - Tdap) DTaP/Tdap/Td Vaccines (1 - Tdap) [facility] Start: 2000 Hepatitis A Vaccines (1 of 2 - Risk 2-dose series) Hepatitis A Vaccines (1 of 2 - Risk 2-dose series) [facility] Start: 2000 Hepatitis B Vaccines (1 of 3 - 19+ 3-dose series) Hepatitis B Vaccines (1 of 3 - 19+ 3-dose series) [facility] Start: 2000 Pneumococcal Vaccine : Ped or At-Risk (1 of 2 - PCV) Pneumococcal Vaccine: Ped or At-Risk (1 of 2 - PCV) [facility] Start: 2000 Urine microalbumin profile DTAP,TDAP ,TD (1 - Tdap) [facility] Start: 1999 HEPATITIS C SCREENING HEPATITIS C [facility] Start: 1999 Hepatitis C screening Hepatitis C [facility] Start: 1999 HIV SCREENING HIV SCREENING [facility] Start: 1996 HIV screening HIV Screening [facility] Start: 1994 Varicella vaccination Varicell a Vaccines (1 of 2 - 13+ 2-dose series) [facility] Start: 1993 Adult depression scr eening assessment [facility] Start: 1987 PNEUMOCOCCAL (1 - PCV) PNEUMOCOCCAL (1 - PCV) [facility] Start: 1987 Pneumococcal Vaccine : Ped or At-Risk (1 - PCV) Pneumococcal Vaccine: Ped or At-Risk (1 - PCV) [facility] Start: 1987 Pneumococcal Vaccine : Ped or At-Risk (1 of 2 - PCV) Pneumococcal Vaccine: Ped or At-Risk (1 of 2 - PCV) [facility] Start: 1987 Pneumococcal Vaccine : Pediatrics (0 to 5 Years) and At-Risk Patients (6 to 64 Years) (1 - PCV) Pneumococcal Vaccine: Pediatrics (0 to 5 Years) and At-Risk Patients (6 to 64 Years) (1 - PCV) [facility] Start: 1986 COVID-19 Vaccine (#1) COVID-19 Vacci ne (#1) [facility] Start: 1986 COVID-19 VACCINE (1) COVID-19 VACCIN E (1) [facility] Start: 1984 History and physical examination, annual for health maintenance Wellness Visit [facility] Start: 1982 MMR Vaccines (1 of 1 - Standard series) MMR Vaccines (1 of 1 - Standard series) [facility] Start: 1982 Varicella vaccination Varicell a Vaccines (1 of 2 - 2-dose childhood series) [facility] Start: 1981 COVID-19 VACCINE (#1) COVID-19 VACCI NE (#1) [facility] Start: 1981 HEPATITIS B (1 of 3 - 3-dose series) HEPATITIS B (1 of 3 - 3-dose series) [facility] Start: 1981 Hepatitis B Vaccines (1 of 3 - 3-dose series) Hepatitis B Vaccines (1 of 3 - 3-dose series) [facility] Start: 1981 HIV screening HIV Screening [facility] Start: 1981 Lipid panel Lipid Panel [facility] Start: 1981 Tetanus vaccination Tetanus: Every 1 0yrs [facility] Start: 1981 Yearly Adult Physical Yearly Adult P [facility] Alanine aminotransfe rase [Enzymatic activity/volume] in Serum or Plasma [facility] Albumin [Mass/volume ] in Serum or Plasma [facility] Alkaline phosphatase [Enzymatic activity/volume] in Serum or Plasma [facility] Amphetamines [Presen ce] in Urine by Screen method >1000 ng/mL [facility] End: 07-30-2024 Anti-cyclic citrullinated peptide antibody level [facility] Antibody Lab Add-On Polyarthralgia 1 Occurrences starting 07/30/2023 until 07/30/2024 [facility] Comment on above: 1 Occurrences starti ng 07/30/2023 until 07/30/2024 Anti-cyclic citrulli nated peptide antibody level [facility] Antibody Lab Add-On Polyarthralgia 07/30/2023 9:57 AM EDT [facility] End: 07-30-2024 Antibody to SS-A measurement Sjogrens Antibodies (Ro52,Ro60,SSB) Lab Routine Sjogren's syndrome, with unspecified organ involvement (HCC) Polyarthralgia 1 Occurrences starting 07/30/2023 until 07/30/2024 [facility] Work Phone: Comment on above: 1 Occurrences starti ng 07/30/2023 until 07/30/2024 Antibody to SS-A measurement Sjogrens Antibodies (Ro52,Ro60,SSB) Lab Routine Sjogren's syndrome, with unspecified organ involvement (HCC) Polyarthralgia 07/30/2023 9:57 AM EDT [facility] Benzodiazepine measurement, urine [facility] Bilirubin, total measurement [facility] Bilirubin.direct [Mass/volume] in Serum or Plasma [facility] Cocaine measurement, urine [facility] Colonoscopy [facility] Cortisol [Mass/volum e] in Serum or Plasma [facility] End: 05-27-2025 Drug Screen, Urine Drug Screen, Urine Lab STAT STAT (Lab) for 1 Occurrences starting 05/27/2025 until 05/27/2025 [facility] Work Phone: Comment on above: STAT (Lab) for 1 Occ urrences starting 05/27/2025 until 05/27/2025 End: 05-27-2025 Extra Urine [facility] Tube Extra Urine [facility] Lab Timed Once for 1 Occurrences starting 05/27/2025 until 05/27/2025 [facility] Work Phone: Comment on above: Once for 1 Occurrenc es starting 05/27/2025 until 05/27/2025 fentaNYL [Presence] in Urine by Screen method [facility] Follitropin and Lutr opin panel [Units/volume] - Serum or Plasma [facility] End: 09-11-2024 Hepatitis C viral load Hepatitis C Virus PCR, Blood, Quantitative Lab Routine Polyarthralgia Encounter for screening for other viral diseases 1 Occurrences starting 09/11/2023 until 09/11/2024 [facility] Work Phone: Comment on above: 1 Occurrences starti ng 09/11/2023 until 09/11/2024 Hepatitis C viral load Hepatitis C Virus PCR, Blood, Quantitative Lab Routine Polyarthralgia 09/11/2023 11:15 AM EDT [facility] Influenza virus A an d B RNA and SARS-CoV-2 (COVID-19) N gene panel - Respiratory specimen by MEME with probe detection COVID WITH FLUA+B, ROUTINE Microbiology Routine Viral illness 03/04/2022 11:38 AM EDT [facility] Work Phone: Inhalation bronchial challenge testing [facility] Lactoferrin [Presenc e] in Stool by Immunoassay [facility] Work Phone: Methadone measuremen t, urine [facility] Microscopic urinalysis [facility] End: 08-03-2025 MR Hand - right WO and W contrast IV MR Hand Right With And Without Contrast Imaging Routine Polyarthralgia 1 Occurrences starting 08/03/2024 until 08/03/2025 [facility] Work Phone: Comment on above: 1 Occurrences starti ng 08/03/2024 until 08/03/2025 Organism count, microscopic method [facility] Patient Education [facility] Work Phone: Patient referral [facility] Work Phone: Phencyclidine [Prese nce] in Urine [facility] Procalcitonin [Mass/volume] in Serum or Plasma by Immunoassay [facility] Procedure [facility] Prolactin measurement [facility] Prostate specific an tigen measurement [facility] Protein measurement [facility] Work Phone: End: 07-30-2024 Rheumatoid factor, quantitative Rheumatoid factor Lab Add-On Polyarthralgia 1 Occurrences starting 07/30/2023 until 07/30/2024 [facility] Comment on above: 1 Occurrences starti ng 07/30/2023 until 07/30/2024 Tobacco use cessatio n education [facility] Tobacco use cessatio n education [facility] Tobacco use cessatio n education [facility] Tobacco use cessatio n education [facility] Total protein measurement [facility] End: 05-27-2025 Urinalysis complete W Reflex Culture panel - Urine [facility] Service Area Work Phone: Comment on above: Once (Lab) for 1 Occ urrences starting 05/27/2025 until 05/27/2025 Urine cannabinoid measurement [facility] Urine culture [facility] Urine microscopy: epithelial cells [facility] Urine microscopy: re d cells [facility] Urine opiate measurement [facility] End: 07-30-2024 Videofluoroscopy swallow XR Modifed Barium Swallow Imaging Routine Sjogren's syndrome, with unspecified organ involvement (HCC) Dysphagia, unspecified type 1 Occurrences starting 07/30/2023 until 07/30/2024 [facility] Comment on above: 1 Occurrences starti ng 07/30/2023 until 07/30/2024 White blood cell count [facility] Payers Date Payer Category Payer Legal Liability / Liability Insurance ACCIDENT RELATED NON-MEDICARE [id number] 2025 Medicare [id number] 2024 Self-pay [id number] 2022 Medicaid [id number] 2022 [facility] UE/PREF/HMO/PPO [id number] 2022 [employer] [place] [employer] [facility] [id number] 2022 Unknown 2022 Unknown [id number] 2021 Medicaid [place] [employer] [place] [employer] [id number] 2021-Present [phone] [address] [place] [address] Medicaid [id number] 2021 Medicaid [id number] 2021 Unknown [id number] 1981 Unknown [id number] 1981 Unknown [id number] 1981 Unknown [id number] .903 1981 Unknown [id number] .903 1981 Unknown [id number] 2.16.840.1.367924.3.579.2 .1981 Unknown [id number] [id number] .1981 Unknown [id number] 2.16.840.1.287829.3.579.2 .1981 Unknown [id number] [id number] .1981 Unknown [id number] 2.840.1.853829.3.579.2 .1981 Unknown [id number] 2..840.1.061860.3.579.2 .1981 Unknown [id number] 2.840.1.076961.3.579.2 .1981 Unknown [id number] 2.840.1.959817.3.579.2 .1981 Unknown [id number] 2.840.1.079920.3.579.2 .1981 Unknown [id number] [id number] .1243 Unknown [id number] 2.840.1.519882.3.579.2 .462 Unknown [id number] 2.16840.1.181852.3.579.2 .462 Unknown [id number] 2.16840.1.752544.3.579.2 .462 Unknown [id number] 2.16.840.1.633346.3.579.2 .462 Unknown [id number] 2.16840.1.790867.3.579.2 .462 Unknown [id number] 2.16840.1.310746.3.579.2 .462 Unknown [id number] 2.16.840.1.591109.3.579.2 .462 Unknown [id number] 2.16.840.1.958762.3.579.2 .462 Unknown [id number] 2.16.840.1.624610.3.579.2 .462 Unknown [id number] 2.16.840.1.392243.3.579.2 .462 Unknown [id number] 2.16.840.1.006574.3.579.2 .462 Unknown [id number] 2.16.840.1.035986.3.579.2 .462 Unknown [id number] 2.16.840.1.465638.3.579.2 .462 Unknown [id number] 2.16.840.1.041655.3.579.2 .462 Unknown [id number] 2.16.840.1.268601.3.579.2 .462 Social History Date Type Detail Facility Start: 11-06-2022 End: 06-03-2025 Tobacco smoking status NHIS Smokes tobacco daily [facility] Work Phone: History of tobacco use Cigarette Smoker [facility] Work Phone: Start: 04-12-2018 End: 03-04-2022 Alcohol intake Current non-drinker of alcohol (finding) [facility] Start: 05-29-2015 History SDOH Alcohol Comment past alcohol use [facility] Start: 1980 Sex Assigned At Not on file [facility] Start: 02-22-2022 End: 03-04-2022 Exposure to SARS-CoV-2 (event) Not sure [facility] Start: 02-21-2022 End: 12-21-2023 Tobacco smoking status MIIS Unknown if ever smoked [facility] Start: 03-21-2021 Occasional [facility] Start: 03-21-2021 Cocaine;Heroin ;Marijuan a [facility] Start: 03-21-2021 Cigarettes [facility] Start: 1980 Sex Assigned At Male [facility] Start: 11-06-2022 End: 09-11-2023 Cigarettes smoked current (pack per day) - Reported [address] [facility] Start: 11-06-2022 End: 07-30-2023 Tobacco use and exposure Smokeless tobacco non-user [facility] Start: 07-30-2023 End: 09-11-2023 Gender identity Not on file [facility] Start: 01-26-2025 Sex Male (finding) [facility] Medical Equipment Procedure Code Equipment Code Equipment Origin al Text Equipment Identifier Dates Bard 3dmax Mesh [id number] Start: 07-19-2019 Comment on above: Description: Bard 3DMax Mesh Knitted Keshav ypropylene pre-formed mesh Large Right 4.3 x 6.3 (10.8cm x 16.0cm) Mesh 3dmax Large Polypropylene 6x4in Surgical Nonabsorbable Patch Preform - [id number] Start: 02-14-2021 Comment on above: Description: 10.8 cm x 16.0 cm Goals Date Patient Goal Desired Activity /State Functional Status Date Assessment Result Facility 05-27-2025 [facility] s everity rating scale screener - recent [C-SSRS] [facility] Work Phone: Mental Status Date Assessment Result Facility 06-03-2025 Cognitive function Level Of Cons ciousness Awake;Appropriate;Follows Commands [facility] Work Phone: 03-08-2024 Cognitive function Voice/Name [facility] Work Phone: 09-29-2023 Cognitive function Level Of Cons ciousness Awake;Alert;Appropriate [facility] Work Phone: 09-29-2023 Cognitive function Voice/Name [facility] Work Phone: 09-11-2022 Cognitive function Level Of Cons ciousness Awake;Drowsy [facility] Work Phone: 09-11-2022 Cognitive function Patient Orien tation Person;Place;Time [facility] Work Phone: 11-22-2021 Cognitive function Level Of Cons ciousness Awake;Alert;Appropriate;Follow s Commands [facility] Work Phone: Clinical Notes 03-04-2022 to 06-03-2025 Polly Aviles, - 04/19/2025 11:31 AM EDTWiLilibeth guido VALERI - 04/19/2025 11:21 AM EDT Note Date & Type Note Facility 06-03-2025 Radiology Diagnostic study note [facility] Imaging Services [address] [place] [address] Chest PA and Lateral MR#: [id number] Acct: [id number] Name: JOSE MCNAMARA Rep #: [id number] : 1980 M 45 From: Andie Dykes MD PCP: Dr. Josselyn Galindo MD Status: REG ER Study:Chest PA and Lateral Date of Exam: 06/03/25 Exam# [id number] Ordering Dr: Jimmy Traylor DO PROCEDURE: CHEST PA AND LATERAL 06/03/2025 REASON FOR EXAM: COUGH TECHNIQUE: CHEST PA AND LATERAL COMPARISON: CT chest 08/18/2023. FINDINGS: Hardware: None. Heart: The heart size is normal. Mediastinum: The mediastinal contour is unremarkable. Lungs: Persistent findings of emphysema/COPD. Bibasilar atelectasis/scarring, greatest in the right lower lung. No focal consolidation, pleural effusion or pneumothorax. Bones: Degenerative changes are identified within the thoracic spine. RAD/Chest PA and Lateral IMPRESSION: COPD. NO ACUTE FINDINGS. Reading Location: [id number] CC: Dr. Josselyn Galindo MD; Dr. 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 Polly Aviles DO [facility] Rheumatology [facility] [place] [address] O: [phone] F: [phone] The above recommendations were discussed with the [...] Portions of this note were created with [employer]. Every effort was made to [...] (RR 0-0.9). Remaining comprehensive panel normal. Studies [facility] with negative RF/CCP and repeat Sjogren antibodies [...] stopped. 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 [facility] 04-19-2025 History of Present illness Narrative Images from the original note were not included. RHEUMATOLOGY FOLLOW-UP VISIT Patient Name: Jose Mcnamara : 1980 Medical Record: [id number] PCP: Josselyn Galindo MD Referring provider: CHIEF [...] any questions or concerns. Polly Aviles DO [facility] Rheumatology [address] [place] [address] O: [phone] F: [phone] The above recommendations were discussed with the [...] Portions of this note were created with [employer]. Every effort was made to [...] (RR 0-0.9). Remaining comprehensive panel normal. Studies [facility] with negative RF/CCP and repeat Sjogren antibodies [...] stopped. 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 year [...] declined additional copy documented in this encounter [facility] 02-17-2025 Evaluation note Diagnosis Onset Date Resolution Abdominal pain chronic February 17, 2025 9:46am Celiac disease chronic February 17, 2025 9:46am Constipation chronic February 17 9:46am Crohn disease chronic February 17, 2025 9:46am History of hepatitis C chronic Ap ril 2024 9:46am Sjogren syndrome with gastrointestinal involvement suspected February 17, 2025 9:46am Hepatitis C inactive February 17 9:46am Erectile dysfunction acute April 04, 2025 9:53am Low testosterone in male acute April 04, 2025 9:53am Urinary hesitancy chronic March 9:53am [facility] Work Phone: 1(836) 465-920304-04-2025 Evaluation note* Diagnosis Onset Date Resolution Status Admit Date Abdominal pain chronic February 17, 2025 9:46am Celiac disease chronic February 17, 2025 9:46am Constipation chronic February 17, 025 9:46am Crohn disease chronic February 17, 2025 9:46am History of hepatitis C chronic Ap ril 2024 9:46am Sjogren syndrome with gastrointestinal involvement suspected Feb 9:46am Hepatitis C inactive February 17 9:46am Erectile dysfunction acute April 04, 2025 9:53am Low testosterone in male acute April 04, 2025 9:53am Urinary hesitancy chronic March 9:53am Anxiety acute May 23, 2025 10:00am Abdominal pain chronic May 23, 2025 10:00am Celiac disease chronic May 23, 2025 10:00am Constipation chronic May 23 10:00am Crohn disease chronic May 23 025 10:00am History of hepatitis C chronic Ju 2024 10:00am Sjogren syndrome with gastrointestinal involvement suspected May 10:00am Hepatitis C inactive May 23 10:00am [facility] Work Phone:

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
--- OUTSIDE RECORDS SUMMARY | 2025-06-03 20:15 | XMS RPT_ITS | CCD ---
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 [address] [place], [address] WBC (Bld) [#/Vol] 8.9 10*3/uL Normal 4.4-11.0 [facility] Comment on above: Performed By: #### L 500.4100, L503.0105, L501.9985, L500.4050, L3400.4800, L100.0100, L506.1000 ####[facility] [address] [place], [address] Carbon dioxide measurementOr dered By: Josselyn Galindo on 01-05-2025 CO2 [Moles/Vol] 31.0 mmol/L 21.0-32.0 [facility] Chloride measurementOrdered By: Josselyn Galindo on 01-05-2025 Chloride [Moles/Vol] 111 mmol/L High 98-107 [facility] Comprehensive Metabolic Prof ilon 01-05-2025 Albumin [Mass/Vol] 2.8 g/dL Low 3.2-5.0 [facility] Comment on above: Performed By: #### L 500.4100, L503.0105, L501.9985, L500.4050, L3400.4800, L100.0100, L506.1000 ####[facility] [address] [place], [address] Albumin/Globulin [Mass ratio] 0.9 {ratio} Normal 0.9-2.4 [facility] Comment on above: Performed By: #### L 500.4100, L503.0105, L501.9985, L500.4050, L3400.4800, L100.0100, L506.1000 ####[facility] [address] [place], [address] ALK P 63 U/L Normal 45-117 [facility] Comment on above: Performed By: #### L 500.4100, L503.0105, L501.9985, L500.4050, L3400.4800, L100.0100, L506.1000 ####[facility] [address] [place], [address] ALT [Catalytic activity/Vol] 22 U/L Normal 16-61 [facility] Comment on above: Performed By: #### L 500.4100, L503.0105, L501.9985, L500.4050, L3400.4800, L100.0100, L506.1000 ####[facility] [address] [place], [address] AST [Catalytic activity/Vol] 4 U/L Low 15-37 [facility] Comment on above: Performed By: #### L 500.4100, L503.0105, L501.9985, L500.4050, L3400.4800, L100.0100, L506.1000 ####[facility] [address] [place], [address] Bilirubin [Mass/Vol] 0.10 mg/dL Low 0.20-1.00 [facility] Comment on above: Result Comment: For patients on eltrombopag therapy, use of Dimension [place] TBIL is not recommended. Performed By: #### L 500.4100, L503.0105, L501.9985, L500.4050, L3400.4800, L100.0100, L506.1000 ####[facility] [address] [place], [address] BUN/CRE 24.0 RATIO High 10-20 [facility] Comment on above: Performed By: #### L 500.4100, L503.0105, L501.9985, L500.4050, L3400.4800, L100.0100, L506.1000 ####[facility] [address] [place], [address] CA,Total 8.3 mg/dL Low 8.5-10.1 [facility] Comment on above: Performed By: #### L 500.4100, L503.0105, L501.9985, L500.4050, L3400.4800, L100.0100, L506.1000 ####[facility] [address] [place], [address] Chloride [Moles/Vol] 111 mmol/L High 98-107 [facility] Comment on above: Performed By: #### L 500.4100, L503.0105, L501.9985, L500.4050, L3400.4800, L100.0100, L506.1000 ####[facility] [address] [place], [address] CO2 [Moles/Vol] 31.0 mmol/L Normal 21.0-32.0 [facility] Comment on above: Performed By: #### L 500.4100, L503.0105, L501.9985, L500.4050, L3400.4800, L100.0100, L506.1000 ####[facility] [address] [place], [address] Creatinine [Mass/Vol] 0.79 mg/dL Normal 0.70-1.30 [facility] Comment on above: Result Comment: The validity of the calculated GFR GFRAA in patients over 70 years has not been determined. Clinical correlation is essential. Performed By: #### L 500.4100, L503.0105, L501.9985, L500.4050, L3400.4800, L100.0100, L506.1000 ####[facility] [address] [place], [address] EST GFR - AA 137 mL/min Normal >60 [facility] Comment on above: Result Comment: Afri can Thai GFR Calc Performed By: #### L 500.4100, L503.0105, L501.9985, L500.4050, L3400.4800, L100.0100, L506.1000 ####[facility] [address] [place], [address] GAP 5 Normal 5-15 [facility] Comment on above: Performed By: #### L 500.4100, L503.0105, L501.9985, L500.4050, L3400.4800, L100.0100, L506.1000 ####[facility] [address] [place], [address] GFR/1.73 sq M.predicted among non-blacks MDRD (S/P/Bld) [Vol rate/Area] 113 mL/min/{1.73_m2} Normal >60 [facility] Comment on above: Result Comment: Non- GFR Calc Performed By: #### L 500.4100, L503.0105, L501.9985, L500.4050, L3400.4800, L100.0100, L506.1000 ####[facility] [address] [place], [address] Globulin (S) [Mass/Vol] 3.0 g/dL Normal 2.2-4.2 [facility] Comment on above: Performed By: #### L 500.4100, L503.0105, L501.9985, L500.4050, L3400.4800, L100.0100, L506.1000 ####[facility] [address] [place], [address] Glucose [Mass/Vol] 148 mg/dL High 74-106 [facility] Comment on above: Result Comment: Fast ing Glucose result greater than or equal to 126 mg/dL suggests DIABETES MELLITUS per A.D.A. criteria. Performed By: #### L 500.4100, L503.0105, L501.9985, L500.4050, L3400.4800, L100.0100, L506.1000 ####[facility] [address] [place], [address] Potassium [Moles/Vol] 3.4 mmol/L Low 3.5-5.1 [facility] Comment on above: Performed By: #### L 500.4100, L503.0105, L501.9985, L500.4050, L3400.4800, L100.0100, L506.1000 ####[facility] [address] [place], [address] Sodium [Moles/Vol] 147 mmol/L High 136-145 [facility] Comment on above: Performed By: #### L 500.4100, L503.0105, L501.9985, L500.4050, L3400.4800, L100.0100, L506.1000 ####[facility] [address] [place], [address] T PROT 5.8 g/dL Low 6.4-8.2 [facility] Comment on above: Performed By: #### L 500.4100, L503.0105, L501.9985, L500.4050, L3400.4800, L100.0100, L506.1000 ####[facility] [address] [place], [address] Urea nitrogen [Mass/Vol] 19 mg/dL High 7-18 [facility] Comment on above: Performed By: #### L 500.4100, L503.0105, L501.9985, L500.4050, L3400.4800, L100.0100, L506.1000 ####[facility] [address] [place], [address] Eosinophil percentageOrdered By: Josselyn Galindo on 01-05-2025 Eosinophils/100 WBC (Bld) 2.2 % 0-5 [facility] Erythrocyte distribution wid th ratioOrdered By: Josselyn Galindo on 01-05-2025 Erythrocyte distribution width (RBC) [Ratio] 13.4 % 11.6-14.6 [facility] Erythrocyte distribution wid th standard deviationOrdered By: Josselyn Galindo on 01-05-2025 Erythrocyte distribution width (RBC) [Entitic vol] 46.9 fL High 35.1-43.9 [facility] Erythrocyte distribution width (RBC) [Ratio] 46.9 fl High 35.1-43.9 [facility] Estimated glomerular filtrat ion rate (GFR) AmericanOrdered By: Josselyn Galindo on 01-05-2025 Estimated GFR (MDRD) Amer 137 mL/min >60 [facility] Comment on above: GFR Calc Glomerular filtration rate ( GFR) estimationOrdered By: Josselyn Galindo on 01-05-2025 Estimated GFR (MDRD) Non-Af Amer 113 mL/min >60 [facility] Comment on above: Non- GFR Calc GFR/1.73 sq M.predicted among non-blacks MDRD (S/P/Bld) [Vol rate/Area] 113 mL/min/{1.73_m2} >60 [facility] Comment on above: Non- GFR Calc Glucose measurementOrdered B y: Josselyn Galindo on 01-05-2025 Glucose [Mass/Vol] 148 mg/dL High 74-106 [facility] Comment on above: Fasting Glucose resu lt greater than or equal to 126 mg/dL suggests DIABETES MELLITUS per A.D.A. criteria. Hematocrit Auto (Bld) [Volum e fraction]Ordered By: Josselyn Galindo on 01-05-2025 Hematocrit (Bld) [Volume fraction] 46.1 % 40-54 [facility] Hemoglobin A1con 01-05-2025 HbA1c (Bld) [Mass fraction] 5.7 % High 3.8-5.6 [facility] Comment on above: Result Comment: Norm al < 5.7 % Prediabetic 5.7 - 6.4 % Diabetic >or= 6.5 % Please note range changes. Performed By: #### L 500.4100, L503.0105, L501.9985, L500.4050, L3400.4800, L100.0100, L506.1000 ####[facility] [address] [place], [address] Hemoglobin A1c percentageOrd ered By: Josselyn Galindo on 01-05-2025 HbA1c (Bld) [Mass fraction] 5.7 % High 3.8-5.6 [facility] Comment on above: Normal < 5.7 % Predi abetic 5.7 - 6.4 % Diabetic >or= 6.5 % Please note range changes. Hemoglobin measurementOrdere d By: Josselyn Galindo on 01-05-2025 Hemoglobin (Bld) [Mass/Vol] 14.2 g/dL 13.0-16.5 [facility] High density lipoprotein (HD L) measurementOrdered By: Josselyn Galindo on 01-05-2025 Cholesterol in HDL [Mass/Vol] 38 mg/dL Low >40 [facility] Comment on above: The drugs N-Acetylcy steine and Metamizole may falsely depress this assay. Reference Range HDL <40 mg/dL Low HDL Cholesterol HDL >or= 60 mg/dL High HDL Cholesterol Immature granulocytes/100 WB C Auto (Bld)Ordered By: Josselyn Galindo on 01-05-2025 Immature granulocytes/100 WBC (Bld) 1.100 % High 0.0-0.9 [facility] Comment on above: IG% - Immature Granu locytes (promyelocytes, myelocytes and metamyelocytes) > 1% indicates that a LEFT SHIFT is Present. Laboratory - Chemistry and C hemistry - challengeOrdered By: Josselyn Galindo on 01-05-2025 AST [Catalytic activity/Vol] 4 U/L Low 15-37 [facility] Lipid Profileon 01-05-2025 Cholesterol [Mass/Vol] 158 mg/dL Normal 200 [facility] Comment on above: Result Comment: <200 mg/dL Desirable 200-240 mg/dL Borderline >240 mg/dL High Risk Performed By: #### L 500.4100, L503.0105, L501.9985, L500.4050, L3400.4800, L100.0100, L506.1000 ####[facility] [address] [place], [address] Cholesterol in HDL [Mass/Vol] 38 mg/dL Low [facility] Comment on above: Result Comment: The drugs N-Acetylcysteine and Metamizole may falsely depress this assay. Reference Range HDL <40 mg/dL Low HDL Cholesterol HDL >or= 60 mg/dL High HDL Cholesterol Performed By: #### L 500.4100, L503.0105, L501.9985, L500.4050, L3400.4800, L100.0100, L506.1000 ####[facility] [address] [place], [address] Cholesterol in LDL [Mass/Vol] 81 mg/dL Normal 0-130 [facility] Comment on above: Performed By: #### L 500.4100, L503.0105, L501.9985, L500.4050, L3400.4800, L100.0100, L506.1000 ####[facility] [address] [place], [address] Cholesterol in VLDL [Mass/Vol] 39 mg/dL Normal 5-40 [facility] Comment on above: Performed By: #### L 500.4100, L503.0105, L501.9985, L500.4050, L3400.4800, L100.0100, L506.1000 ####[facility] [address] [place], [address] Triglyceride [Mass/Vol] 195 mg/dL Normal [facility] Comment on above: Result Comment: The drugs N-Acetylcysteine and Metamizole may falsely depress this assay. Serum Triglycerides Reference Interval Normal <150 mg/dL Borderline high 150 - 199 mg/dL High 200 - 499 mg/dL Very High > or = 500 mg/dL Performed By: #### L 500.4100, L503.0105, L501.9985, L500.4050, L3400.4800, L100.0100, L506.1000 ####[facility] [address] [place], [place], [address] Low density lipoprotein (LDL ) cholesterol measurementOrdered By: Josselyn Galindo on 01-05-2025 Cholesterol in LDL [Mass/Vol] 81 mg/dL 0-130 [facility] Lymphocytes Auto (Unsp spec) [#/Vol]Ordered By: Josselyn Galindo on 01-05-2025 Lymphocytes (Bld) [#/Vol] 2.39 10*3/uL 0.83-4.51 [facility] Lymphocytes/100 WBC Auto (Un sp spec)Ordered By: Josselyn Galindo on 01-05-2025 Lymphocytes/100 WBC (Bld) 26.8 % 19-41 [facility] MCV (mean corpuscular volume ) determinationOrdered By: Josselyn Galindo on 01-05-2025 MCV (RBC) [Entitic vol] 94.7 fL High 80-94 [facility] Mean corpuscular hemoglobin (MCH) determinationOrdered By: Josselyn Galindo on 01-05-2025 MCH (RBC) [Entitic mass] 29.2 pg 27.0-32.0 [facility] Mean corpuscular hemoglobin concentration (MCHC) determinationOrdered By: Josselyn Galindo on 01-05-2025 MCHC (RBC) [Mass/Vol] 30.8 g/dL Low 32-36 [facility] Mean platelet volume determi nationOrdered By: Josselyn Galindo on 01-05-2025 Platelet mean volume (Bld) [Entitic vol] 10.8 fL 6.2-12.0 [facility] Monocyte percentageOrdered B y: Josselyn Galindo on 01-05-2025 Monocytes/100 WBC (Bld) 11.4 % High 0-10 [facility] Neutrophil percentageOrdered By: Josselynderick Galindo on 01-05-2025 Neutrophils/100 WBC (Bld) 57.9 % 47-70 [facility] Nucleated red blood cell per centageOrdered By: Josselyn Galindo on 01-05-2025 Nucleated RBC/100 WBC (Bld) [Ratio] 0 % 0-5 [facility] Platelet countOrdered By: Benjamin Galindo on 01-05-2025 Platelets (Bld) [#/Vol] 182 10*3/uL 150-450 [facility] Potassium measurementOrdered By: Josselyn Galindo on 01-05-2025 Potassium [Moles/Vol] 3.4 mmol/L Low 3.5-5.1 [facility] RBC Auto (Bld) [#/Vol]Ordere d By: Josselyn Galindo on 01-05-2025 RBC (Bld) [#/Vol] 4.87 10*6/uL 4.6-6.2 [facility] Serum anion gap measurementO rdered By: Josselyn Galindo on 01-05-2025 Anion gap [Moles/Vol] 5 mmol/L 5-15 [facility] Serum globulin measurementOr dered By: Josselyn Galindo on 01-05-2025 Globulin (S) [Mass/Vol] 3.0 g/dL 2.2-4.2 [facility] Serum or plasma alanine delong otransferase (ALT) measurementOrdered By: Josselyn Galindo on 01-05-2025 ALT [Catalytic activity/Vol] 22 U/L 16-61 [facility] Serum or plasma albumin cristina urement (mass/volume)Ordered By: Josselyn Galindo on 01-05-2025 Albumin [Mass/Vol] 2.8 g/dL Low 3.2-5.0 [facility] Serum or plasma alkaline leland sphatase measurementOrdered By: Josselyn Galindo on 01-05-2025 ALP [Catalytic activity/Vol] 63 U/L 45-117 [facility] Serum or plasma calcium cristina urement (mass/volume)Ordered By: Josselyn Galindo on 01-05-2025 Calcium [Mass/Vol] 8.3 mg/dL Low 8.5-10.1 [facility] Serum or plasma cholesterol measurement (mass/volume)Ordered By: Josselyn Galindo on 01-05-2025 Cholesterol [Mass/Vol] 158 mg/dL <200 [facility] Comment on above: <200 mg/dL Desirable 200-240 mg/dL Borderline >240 mg/dL High Risk Serum or plasma creatinine m easurement (mass/volume)Ordered By: Josselyn Galindo on 01-05-2025 Creatinine [Mass/Vol] 0.79 mg/dL 0.70-1.30 [facility] Comment on above: The validity of the calculated GFR & GFRAA in patients over 70 years has not been determined. Clinical correlation is essential. Serum or plasma free testost erone measurement (mass/volume)Ordered By: Josselyn Galindo on 01-05-2025 Testosterone Free [Mass/Vol] 0.9 pg/mL Low 6.8-21.5 [facility] Comment on above: Performed at: [address] [id number] Director: Debby Cruz MD, Phone: [phone] Serum or plasma urea nitroge n measurement (mass/volume)Ordered By: Josselyn Galindo on 01-05-2025 Urea nitrogen [Mass/Vol] 19 mg/dL High 7-18 [facility] Sodium levelOrdered By: Violette Galindo on 01-05-2025 Sodium [Moles/Vol] 147 mmol/L High 136-145 [facility] Testosterone Free [Mass/Vol] Ordered By: Josselyn Galindo on 01-05-2025 Free Testosterone 0.9 pg/mL Low 6.8-21.5 [facility] Comment on above: Performed at: BN - L shahab [address] [id number] Director: Debby Cruz MD, Phone: [phone] Total proteinOrdered By: Omar Galindo on 01-05-2025 Protein [Mass/Vol] 5.8 g/dL Low 6.4-8.2 [facility] Triglycerides measurementOrd ered By: Josselyn Galindo on 01-05-2025 Triglyceride [Mass/Vol] 195 mg/dL <199 [facility] Comment on above: The drugs N-Acetylcy steine and Metamizole may falsely depress this assay.Serum Triglycerides Reference Interval Normal <150 mg/dL Borderline high 150 - 199 mg/dL High 200 - 499 mg/dL Very High > or = 500 mg/dL Very low density lipoprotein (VLDL) cholesterol measurementOrdered By: Josselyn Galindo on 01-05-2025 Very low density lipoprotein (VLDL) cholesterol measurement 39 mg/dL 5-40 [facility] VLDL Cholesterol 39 mg/dL 5-40 [facility] Vitamin B12on 01-05-2025 Cobalamin (Vitamin B12) [Mass/Vol] 366 pg/mL Normal 211-911 [facility] Comment on above: Performed By: #### L 500.4100, L503.0105, L501.9985, L500.4050, L3400.4800, L100.0100, L506.1000 ####[facility] [address] [place], [address] Vitamin B12 measurementOrder ed By: Josselyn Galindo on 01-05-2025 Cobalamin (Vitamin B12) [Mass/Vol] 366 pg/mL 211-911 [facility] Vitamin D,25 Hydroxyon 01-05 Vitamin D 25-OH 27.3 ng/mL Normal [facility] Comment on above: Result Comment: Kelly min D 25(OH) Status Range Deficiency <20 ng/mL (50nmol/L) Insufficiency 20 - 30 ng/mL (50 - 75 nmol/L) Sufficiency 30 - 100 ng/mL (75 - 250 nmol/L) Toxicity >100 ng/mL (>250 nmol/L) Performed By: #### L 500.4100, L503.0105, L501.9985, L500.4050, L3400.4800, L100.0100, L506.1000 ####[facility] [address] [place], [address] White blood cell (WBC) count Ordered By: Josselyn Galindo on 01-05-2025 WBC (Bld) [#/Vol] 8.9 10*3/uL 4.4-11.0 [facility] Ammoniaon 12-28-2024 Ammonia (P) [Moles/Vol] 22.0 umol/L Normal 11-32 [facility] Comment on above: Performed By: #### L 501.5200, L500.3400, L500.2500, L503.5510 #### [facility] [address] [place], [address] Basic Metabolic Profile (BMP )on 12-28-2024 BUN/CRE 21.6 RATIO High - [facility] Comment on above: Performed By: #### L 501.5200, L500.3400, L500.2500, L503.5510 #### [facility] [address] [place], [address] CA,Total 8.4 mg/dL Low 8.5-10.1 [facility] Comment on above: Performed By: #### L 501.5200, L500.3400, L500.2500, L503.5510 #### [facility] [address] [place], [address] Chloride [Moles/Vol] 104 mmol/L Normal 98-107 [facility] Comment on above: Performed By: #### L 501.5200, L500.3400, L500.2500, L503.5510 #### [facility] [address] [place], [address] CO2 [Moles/Vol] 29.0 mmol/L Normal 21.0-32.0 [facility] Comment on above: Performed By: #### L 501.5200, L500.3400, L500.2500, L503.5510 #### [facility] [address] [place], [address] Creatinine [Mass/Vol] 0.74 mg/dL Normal 0.70-1.30 [facility] Comment on above: Result Comment: The validity of the calculated GFR GFRAA in patients over 70 years has not been determined. Clinical correlation is essential. Performed By: #### L 501.5200, L500.3400, L500.2500, L503.5510 #### [facility] [address] [place], [address] EST GFR - AA 148 mL/min Normal >60 [facility] Comment on above: Result Comment: Afri can Thai GFR Calc Performed By: #### L 501.5200, L500.3400, L500.2500, L503.5510 #### [facility] [address] [place], [address] GAP 6 Normal 5-15 [facility] Comment on above: Performed By: #### L 501.5200, L500.3400, L500.2500, L503.5510 #### [facility] [address] [place], [address] GFR/1.73 sq M.predicted among non-blacks MDRD (S/P/Bld) [Vol rate/Area] 122 mL/min/{1.73_m2} Normal >60 [facility] Comment on above: Result Comment: Non- GFR Calc Performed By: #### L 501.5200, L500.3400, L500.2500, L503.5510 #### [facility] [address] [place], [address] Glucose [Mass/Vol] 125 mg/dL High 74-106 [facility] Comment on above: Result Comment: Fast ing Glucose result from 100 to 125 mg/dL suggests IMPAIRED HOMEOSTASIS per A.D.A. criteria. Performed By: #### L 501.5200, L500.3400, L500.2500, L503.5510 #### [facility] [address] [place], [address] Potassium [Moles/Vol] 4.6 mmol/L Normal 3.5-5.1 [facility] Comment on above: Performed By: #### L 501.5200, L500.3400, L500.2500, L503.5510 #### [facility] [address] [place], [address] Sodium [Moles/Vol] 138 mmol/L Normal 136-145 [facility] Comment on above: Performed By: #### L 501.5200, L500.3400, L500.2500, L503.5510 #### [facility] [address] [place], [address] Urea nitrogen [Mass/Vol] 16 mg/dL Normal 7-18 [facility] Comment on above: Performed By: #### L 501.5200, L500.3400, L500.2500, L503.5510 #### [facility] [address] [place], [address] Bilirubin directOrdered By: Jovita Jimenez on 12-28-2024 Bilirubin.direct [Mass/Vol] 0.13 mg/dL 0.00-0.30 [facility] Bilirubin, totalOrdered By: Jovita Jimenez on 12-28-2024 Bilirubin [Mass/Vol] 0.30 mg/dL 0.20-1.00 [facility] Comment on above: For patients on eltr ombopag therapy, use of Dimension [place] TBIL is not recommended. Blood urea nitrogen (BUN)/cr eatinine ratioOrdered By: Jovita Jimenez on 12-28-2024 Urea nitrogen/Creatinine [Mass ratio] 21.6 mg/mg High 10-20 [facility] Carbon dioxide measurementOr dered By: Jovita Jimenez on 12-28-2024 CO2 [Moles/Vol] 29.0 mmol/L 21.0-32.0 [facility] Chloride measurementOrdered By: Jovita Jimenez on 12-28-2024 Chloride [Moles/Vol] 104 mmol/L 98-107 [facility] Estimated glomerular filtrat ion rate (GFR) AmericanOrdered By: Jovita Jimenez on 12-28-2024 Estimated GFR (MDRD) Amer 148 mL/min >60 [facility] Comment on above: GFR Calc Gastroenterology Visit Repor ton 12-28-2024 Gastroenterology Visit Report [facility] [address] [place] [address] OFFICE VISIT Date of Service: 12/28/24 MR#: [id number] Acct: [id number] Name: JOSE MCNAMARA Rep #: [id number] : 1980 Provider: Keny Guevara DO Age/Sex: 44/M Location: [facility] [place] Status: Signed Intake Vital Signs 10/04/24 10:44 [...] show. OV (more content not included)... Normal [facility] Glomerular filtration rate ( GFR) estimationOrdered By: Jovita Jimenez on 12-28-2024 Estimated GFR (MDRD) Non-Af Amer 122 mL/min >60 [facility] Comment on above: Non- GFR Calc GFR/1.73 sq M.predicted among non-blacks MDRD (S/P/Bld) [Vol rate/Area] 122 mL/min/{1.73_m2} >60 [facility] Comment on above: Non- GFR Calc Glucose measurementOrdered B y: Jovita Jimenez on 12-28-2024 Glucose [Mass/Vol] 125 mg/dL High 74-106 [facility] Comment on above: Fasting Glucose resu lt from 100 to 125 mg/dL suggests IMPAIRED HOMEOSTASIS per A.D.A. criteria. Laboratory - Chemistry and C hemistry - challengeOrdered By: Jovita Jimenez on 12-28-2024 AST [Catalytic activity/Vol] 19 U/L 15-37 [facility] Liver Profileon 12-28-2024 Albumin [Mass/Vol] 3.3 g/dL Normal 3.2-5.0 [facility] Comment on above: Performed By: #### L 501.5200, L500.3400, L500.2500, L503.5510 ####[facility] [address] [place], [address] ALK P 83 U/L Normal 45-117 [facility] Comment on above: Performed By: #### L 501.5200, L500.3400, L500.2500, L503.5510 ####[facility] [address] [place], [address] ALT [Catalytic activity/Vol] 48 U/L Normal 16-61 [facility] Comment on above: Performed By: #### L 501.5200, L500.3400, L500.2500, L503.5510 ####[facility] [address] [place], [address] AST [Catalytic activity/Vol] 19 U/L Normal 15-37 [facility] Comment on above: Performed By: #### L 501.5200, L500.3400, L500.2500, L503.5510 ####[facility] [address] [place], [address] Bilirubin [Mass/Vol] 0.30 mg/dL Normal 0.20-1.00 [facility] Comment on above: Result Comment: For patients on eltrombopag therapy, use of Dimension [place] TBIL is not recommended. Performed By: #### L 501.5200, L500.3400, L500.2500, L503.5510 ####[facility] [address] [place], [address] Bilirubin.direct [Mass/Vol] 0.13 mg/dL Normal 0.00-0.30 [facility] Comment on above: Performed By: #### L 501.5200, L500.3400, L500.2500, L503.5510 ####[facility] [address] [place], [address] Globulin (S) [Mass/Vol] 3.2 g/dL Normal 2.2-4.2 [facility] Comment on above: Performed By: #### L 501.5200, L500.3400, L500.2500, L503.5510 ####[facility] [address] [place], [address] T PROT 6.5 g/dL Normal 6.4-8.2 [facility] Comment on above: Performed By: #### L 501.5200, L500.3400, L500.2500, L503.5510 ####[facility] [address] [place], [address] Magnesiumon 12-28-2024 Magnesium [Mass/Vol] 2.2 mg/dL Normal 1.6-2.6 [facility] Comment on above: Performed By: #### L 501.5200, L500.3400, L500.2500, L503.5510 ####[facility] [address] [place], [address] Magnesium measurementOrdered By: Jovita Jimenez on 12-28-2024 Magnesium [Mass/Vol] 2.2 mg/dL 1.6-2.6 [facility] Potassium measurementOrdered By: Jovita Jimenez on 12-28-2024 Potassium [Moles/Vol] 4.6 mmol/L 3.5-5.1 [facility] Serum anion gap measurementO rdered By: Jovita Jimenez on 12-28-2024 Anion gap [Moles/Vol] 6 mmol/L 5-15 [facility] Serum globulin measurementOr dered By: Jovita Jimenez on 12-28-2024 Globulin (S) [Mass/Vol] 3.2 g/dL 2.2-4.2 [facility] Serum or plasma alanine delong otransferase (ALT) measurementOrdered By: Jovita Jimenez on 12-28-2024 ALT [Catalytic activity/Vol] 48 U/L 16-61 [facility] Serum or plasma albumin cristina urement (mass/volume)Ordered By: Jovita Jimenez on 12-28-2024 Albumin [Mass/Vol] 3.3 g/dL 3.2-5.0 [facility] Serum or plasma alkaline leland sphatase measurementOrdered By: Jovita Jimenez on 12-28-2024 ALP [Catalytic activity/Vol] 83 U/L 45-117 [facility] Serum or plasma calcium cristina urement (mass/volume)Ordered By: Jovita Jimenez on 12-28-2024 Calcium [Mass/Vol] 8.4 mg/dL Low 8.5-10.1 [facility] Serum or plasma creatinine m easurement (mass/volume)Ordered By: Jovita Jimenez on 12-28-2024 Creatinine [Mass/Vol] 0.74 mg/dL 0.70-1.30 [facility] Comment on above: The validity of the calculated GFR & GFRAA in patients over 70 years has not been determined. Clinical correlation is essential. Serum or plasma urea nitroge n measurement (mass/volume)Ordered By: Jovita Jimenez on 12-28-2024 Urea nitrogen [Mass/Vol] 16 mg/dL 7-18 [facility] Sodium levelOrdered By: Eric Jimenez on 12-28-2024 Sodium [Moles/Vol] 138 mmol/L 136-145 [facility] Total proteinOrdered By: Anna Jimenez on 12-28-2024 Protein [Mass/Vol] 6.5 g/dL 6.4-8.2 [facility] Venous blood ammonia measure mentOrdered By: Jovita Jimenez on 12-28-2024 Ammonia (P) [Moles/Vol] 22.0 umol/L [facility] Internal Medicine Office Vis itomeli 12-26-2024 Internal Medicine Office Visit [facility] [address] [place] [address] [place] [address] OFFICE VISIT Date of Service: 12/27/24 MR#: [id number] Acct: [id number] Name: JOSE MCNAMARA Rep #: [id number] : 1980 Provider: Dr. Josselyn youngblood MD Age/Sex: 44/M [place] [facility] [place] Status: Signed Intake Vital Signs 10/04/24 [...] wants podiatry referral Chief Complaint: follow up Triage Assistant Required: No Accompanied by: Self Is patient [...] leg starting to heal. went to [facility] and they fixed ingrown toenail PFSH Medical [...] friend(s) current occupational status: employed current occupation: [employer], on FML[employer] currently due to abdominal problems [...] to qu (more content not included)... Normal [facility] Gastroenterology Visit Repor ton 10-04-2024 Gastroenterology Visit Report [facility] [address] [place] [address] OFFICE VISIT Date of Service: 10/04/24 MR#: [id number] Acct: [id number] Name: JOSE MCNAMARA Rep #: [id number] : 1980 Provider: Keny Guevara DO Age/Sex: 44/M Location: [facility] [place] Status: Signed Intake Vital Signs 05/24/24 07:36 [...] mcg PO BID PRN 10/04/24 History (Amitiza) [facility] Medical History Pain Crohn's disease Sjogren's disease [...] friend(s) current occupational status: employed current occupation: [employer], on [employer] currently due to abdominal problems Smoking Status: [...] with promethazi (more content not included)... Normal [facility] Upper Ext No Joint W/WO Cont on 09-21-2024 Upper Ext No Joint W/WO Cont [facility] Imaging Services [address] [place], [place] [address] Upper Ext No Joint W/WO Cont MR#: [id number] Acct: [id number] Name: JOSE MCNAMARA Rep #: [id number] : 1980 M 44 From: Matt Roy MD PCP: Dr. Josselyn Galindo MD Status: REG CLI Study: Upper Ext No Joint W/WO Cont Date of Exam: Exam# [id number] Ordering Dr: Polly Aviles DO [id number] STUDY: MRI RIGHT HAND, WITHOUT AND WITH IV CONTRAST REASON FOR EXAM: Male, 44 years old. 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 TECHNIQUE: Standardized fat and water weighted pulse [...] 14:32 EST Reading Location ID and State: [address] [place] [address] , Service support , CC: Dr. Josselyn Galindo MD; Dr. Polly Aviles DO Thaw Shed Heater Tender: Signed Normal [facility] CBC W/Diff, Automatedon 10-1 Absolute Lymph 2.09 X10 3/uL Normal 0.83-4.51 [facility] Comment on above: Performed By: #### L 501.7900, L500.4050, L100.0100, L501.8100 ####[facility] [address] [place], [place], [id number] Absolute Neut 8.3 X10 3/uL High 2.0-7.7 [facility] Comment on above: Performed By: #### L 501.7900, L500.4050, L100.0100, L501.8100 ####[facility] [address] [place], [address] Basophils/100 WBC (Bld) 0.7 % Normal 0-1 [facility] Comment on above: Performed By: #### L 501.7900, L500.4050, L100.0100, L501.8100 ####[facility] [address] [place], [address] Eosinophils/100 WBC (Bld) 1.6 % Normal 0-5 [facility] Comment on above: Performed By: #### L 501.7900, L500.4050, L100.0100, L501.8100 ####[facility] [address] [place], [address] Erythrocyte distribution width (RBC) [Ratio] 13.7 % Normal 11.6-14.6 [facility] Comment on above: Performed By: #### L 501.7900, L500.4050, L100.0100, L501.8100 ####[facility] [address] [place], [address] Hematocrit (Bld) [Volume fraction] 49.9 % Normal 40-54 [facility] Comment on above: Performed By: #### L 501.7900, L500.4050, L100.0100, L501.8100 ####[facility] [address] [place], [address] Hemoglobin (Bld) [Mass/Vol] 15.7 g/dL Normal 13.0-16.5 [facility] Comment on above: Performed By: #### L 501.7900, L500.4050, L100.0100, L501.8100 ####[facility] [address] [place], [address] IG% 0.600 Normal 0.0-0.9 [facility] Comment on above: Result Comment: IG% - Immature Granulocytes (promyelocytes, myelocytes and metamyelocytes) > 1% indicates that a LEFT SHIFT is Present. Performed By: #### L 501.7900, L500.4050, L100.0100, L501.8100 ####[facility] [address] [place], [address] Lymphocytes/100 WBC (Bld) 18.1 % Low 19-41 [facility] Comment on above: Performed By: #### L 501.7900, L500.4050, L100.0100, L501.8100 ####[facility] [address] [place], [address] MCH (RBC) [Entitic mass] 28.1 pg Normal 27.0-32.0 [facility] Comment on above: Performed By: #### L 501.7900, L500.4050, L100.0100, L501.8100 ####[facility] [address] [place], [address] MCHC (RBC) [Mass/Vol] 31.5 g/dL Low 32-36 [facility] Comment on above: Performed By: #### L 501.7900, L500.4050, L100.0100, L501.8100 ####[facility] [address] [place], [address] MCV (RBC) [Entitic vol] 89.4 fL Normal 80-94 [facility] Comment on above: Performed By: #### L 501.7900, L500.4050, L100.0100, L501.8100 ####[facility] [address] [place], [address] Monocytes/100 WBC (Bld) 7.4 % Normal 0-10 [facility] Comment on above: Performed By: #### L 501.7900, L500.4050, L100.0100, L501.8100 ####[facility] [address] [place], [address] Neutrophils/100 WBC (Bld) 71.6 % High 47-70 [facility] Comment on above: Performed By: #### L 501.7900, L500.4050, L100.0100, L501.8100 ####[facility] [address] [place], [address] Nucleated RBC (Bld) [#/Vol] 0 10*3/uL Normal 0-5 [facility] Comment on above: Performed By: #### L 501.7900, L500.4050, L100.0100, L501.8100 ####[facility] [address] [place], [address] Platelet mean volume (Bld) [Entitic vol] 11.4 fL Normal 6.2-12.0 [facility] Comment on above: Performed By: #### L 501.7900, L500.4050, L100.0100, L501.8100 ####[facility] [address] [place], [address] Platelets (Bld) [#/Vol] 188 10*3/uL Normal 150-450 [facility] Comment on above: Performed By: #### L 501.7900, L500.4050, L100.0100, L501.8100 ####[facility] [address] [place], [address] RBC (Bld) [#/Vol] 5.58 10*6/uL Normal 4.6-6.2 [facility] Comment on above: Performed By: #### L 501.7900, L500.4050, L100.0100, L501.8100 ####[facility] [address] [place], [address] RDW SD 45.4 fl High 35.1-43.9 [facility] Comment on above: Performed By: #### L 501.7900, L500.4050, L100.0100, L501.8100 ####[facility] [address] [place], [address] WBC (Bld) [#/Vol] 11.6 10*3/uL High 4.4-11.0 [facility] Comment on above: Performed By: #### L 501.7900, L500.4050, L100.0100, L501.8100 ####[facility] [address] [place], [address] Carbamazepine (Tegretol)on 1 CARBAMAZEPINE < 0.5 Low 4.0-12.0 [facility] Comment on above: Performed By: #### L 501.7900, L500.4050, L100.0100, L501.8100 ####[facility] [address] [place], [address] Comprehensive Metabolic Prof ilon 08-29-2024 Albumin [Mass/Vol] 3.1 g/dL Low 3.2-5.0 [facility] Comment on above: Performed By: #### L 501.7900, L500.4050, L100.0100, L501.8100 ####[facility] [address] [place], [address] Albumin/Globulin [Mass ratio] 1.0 {ratio} Normal 0.9-2.4 [facility] Comment on above: Performed By: #### L 501.7900, L500.4050, L100.0100, L501.8100 ####[facility] [address] [place], [address] ALK P 65 U/L Normal 45-117 [facility] Comment on above: Performed By: #### L 501.7900, L500.4050, L100.0100, L501.8100 ####[facility] [address] [place], [address] ALT [Catalytic activity/Vol] 9 U/L Low 16-61 [facility] Comment on above: Performed By: #### L 501.7900, L500.4050, L100.0100, L501.8100 ####[facility] [address] [place], [address] AST [Catalytic activity/Vol] 5 U/L Low 15-37 [facility] Comment on above: Performed By: #### L 501.7900, L500.4050, L100.0100, L501.8100 ####[facility] [address] [place], [address] Bilirubin [Mass/Vol] 0.20 mg/dL Normal 0.20-1.00 [facility] Comment on above: Result Comment: For patients on eltrombopag therapy, use of Dimension [place] TBIL is not recommended. Performed By: #### L 501.7900, L500.4050, L100.0100, L501.8100 ####[facility] [address] [place], [address] BUN/CRE 24.3 RATIO High 10-20 [facility] Comment on above: Performed By: #### L 501.7900, L500.4050, L100.0100, L501.8100 ####[facility] [address] [place], [address] CA,Total 8.5 mg/dL Normal 8.5-10.1 [facility] Comment on above: Performed By: #### L 501.7900, L500.4050, L100.0100, L501.8100 ####[facility] [address] [place], [address] Chloride [Moles/Vol] 106 mmol/L Normal 98-107 [facility] Comment on above: Performed By: #### L 501.7900, L500.4050, L100.0100, L501.8100 ####[facility] [address] [place], [address] CO2 [Moles/Vol] 31.0 mmol/L Normal 21.0-32.0 [facility] Comment on above: Performed By: #### L 501.7900, L500.4050, L100.0100, L501.8100 ####[facility] [address] [place], [address] Creatinine [Mass/Vol] 0.70 mg/dL Normal 0.70-1.30 [facility] Comment on above: Result Comment: The validity of the calculated GFR GFRAA in patients over 70 years has not been determined. Clinical correlation is essential. Performed By: #### L 501.7900, L500.4050, L100.0100, L501.8100 ####[facility] [address] [place], [address] EST GFR - AA 158 mL/min Normal >60 [facility] Comment on above: Result Comment: Afri can Thai GFR Calc Performed By: #### L 501.7900, L500.4050, L100.0100, L501.8100 ####[facility] [address] [place], [address] GAP 6 Normal 5-15 [facility] Comment on above: Performed By: #### L 501.7900, L500.4050, L100.0100, L501.8100 ####[facility] [address] [place], [address] GFR/1.73 sq M.predicted among non-blacks MDRD (S/P/Bld) [Vol rate/Area] 131 mL/min/{1.73_m2} Normal >60 [facility] Comment on above: Result Comment: Non- GFR Calc Performed By: #### L 501.7900, L500.4050, L100.0100, L501.8100 ####[facility] [address] [place], [address] Globulin (S) [Mass/Vol] 3.0 g/dL Normal 2.2-4.2 [facility] Comment on above: Performed By: #### L 501.7900, L500.4050, L100.0100, L501.8100 ####[facility] [address] [place], [address] Glucose [Mass/Vol] 123 mg/dL High 74-106 [facility] Comment on above: Result Comment: Fast ing Glucose result from 100 to 125 mg/dL suggests IMPAIRED HOMEOSTASIS per A.D.A. criteria. Performed By: #### L 501.7900, L500.4050, L100.0100, L501.8100 ####[facility] [address] [place], [address] Potassium [Moles/Vol] 4.1 mmol/L Normal 3.5-5.1 [facility] Comment on above: Performed By: #### L 501.7900, L500.4050, L100.0100, L501.8100 ####[facility] [address] [place], [address] Sodium [Moles/Vol] 142 mmol/L Normal 136-145 [facility] Comment on above: Performed By: #### L 501.7900, L500.4050, L100.0100, L501.8100 ####[facility] [address] [place], [address] T PROT 6.1 g/dL Low 6.4-8.2 [facility] Comment on above: Performed By: #### L 501.7900, L500.4050, L100.0100, L501.8100 ####[facility] [address] [place], [address] Urea nitrogen [Mass/Vol] 17 mg/dL Normal 7-18 [facility] Comment on above: Performed By: #### L 501.7900, L500.4050, L100.0100, L501.8100 ####[facility] [address] [place], [address] Valproic Acid (Depakene) Lev subhash 08-29-2024 VALPROIC ACID 78 ug/mL Normal 50-100 [facility] Comment on above: Performed By: #### L 501.7900, L500.4050, L100.0100, L501.8100 ####[facility] [address] [place], [address] Brain W/WO Contraston 2023 Brain W/WO Contrast [facility] Services [address] [place] [address] Brain W/WO Contrast MR#: [id number] Acct: [id number] Name: JOSE MCNAMARA Rep #: [id number] : 1980 M 44 From: Logan Causey MD PCP: Dr. Josselyn Galindo MD Status: REG CLI Study: Brain W/WO Contrast Date of Exam: 06/08/24 Exam# [id number] Ordering Dr: oJvita Contreras CFO CONTROLLER-C 490:[id number] EXAM: MR HEAD WITHOUT AND WITH INTRAVENOUS [...] CC: COURTNEY Contreras; Dr. Josselyn Galindo MD Thaw Shed Heater Tender: Signed Normal [facility] Absolute lymphocyte countOrd ered By: Elinameli Chávez on 01-11-2024 Lymphocytes Auto (Unsp spec) [#/Vol] 2.78 10*3/uL 0.83-4.51 [facility] Automated lymphocyte count a s percentage of total leukocytesOrdered By: Elinameli Chávez on 01-11-2024 Lymphocytes/100 WBC Auto (Unsp spec) 29.7 % 19-41 [facility] Basophil percentageOrdered B y: Elina Saira on 01-11-2024 Basophils/100 WBC (Bld) 0.4 % 0-1 [facility] Bilirubin [Mass/Vol] 0.20 mg/dL 0.20-1.00 [facility] Comment on above: For patients on eltr ombopag therapy, use of Dimension [place] TBIL is not recommended. Chloride [Moles/Vol] 109 mmol/L 98-107 [facility] Cholesterol [Mass/Vol] 145 mg/dL <200 [facility] Comment on above: <200 mg/dL Desirable 200-240 mg/dL Borderline >240 mg/dL High Risk Eosinophils/100 WBC (Bld) 1.8 % 0-5 [facility] Glucose [Mass/Vol] 94 mg/dL 74-106 [facility] Hemoglobin (Bld) [Mass/Vol] 15.7 g/dL 13.0-16.5 [facility] Monocytes/100 WBC (Bld) 8.4 % 0-10 [facility] Neutrophils (Bld) [#/Vol] 5.5 10*3/uL 2.0-7.7 [facility] Neutrophils/100 WBC (Bld) 59.4 % 47-70 [facility] Potassium [Moles/Vol] 4.5 mmol/L 3.5-5.1 [facility] Protein [Mass/Vol] 7.1 g/dL 6.4-8.2 [facility] Sodium [Moles/Vol] 142 mmol/L 136-145 [facility] Triglyceride [Mass/Vol] 60 mg/dL <199 [facility] Comment on above: The drugs N-Acetylcy steine and Metamizole may falsely depress this assay.Serum Triglycerides Reference Interval Normal <150 mg/dL Borderline high 150 - 199 mg/dL High 200 - 499 mg/dL Very High > or = 500 mg/dL WBC (Bld) [#/Vol] 9.4 10*3/uL 4.4-11.0 [facility] Determination of erythrocyte mean corpuscular volume (MCV)Ordered By: Elina Chávez on 01-11-2024 MCV (RBC) [Entitic vol] 85.9 fL 80-94 [facility] Erythrocyte distribution wid th ratioOrdered By: Elina Chávez on 01-11-2024 Erythrocyte distribution width (RBC) [Ratio] 13.1 % 11.6-14.6 [facility] Erythrocyte distribution wid th standard deviationOrdered By: Elina Chávez on 01-11-2024 Erythrocyte distribution width (RBC) [Entitic vol] 41.0 fL 35.1-43.9 [facility] Hematocrit Auto (Bld) [Volum e fraction]Ordered By: Elina Chávez on 01-11-2024 Hematocrit (Bld) [Volume fraction] 48.7 % 40-54 [facility] Immature granulocytes/100 WB C Auto (Bld)Ordered By: Elina Chávez on 01-11-2024 Immature granulocytes/100 WBC (Bld) 0.300 % 0.0-0.9 [facility] Comment on above: IG% - Immature Granu locytes (promyelocytes, myelocytes and metamyelocytes) > 1% indicates that a LEFT SHIFT is Present. Laboratory - Chemistry and C hemistry - challengeOrdered By: Elina Chávez on 01-11-2024 Albumin/Globulin [Mass ratio] 1.0 {ratio} 0.9-2.4 [facility] ALP [Catalytic activity/Vol] 115 U/L 45-117 [facility] ALT [Catalytic activity/Vol] 21 U/L 16-61 [facility] Cholesterol in HDL [Mass/Vol] 36 mg/dL >40 [facility] Comment on above: The drugs N-Acetylcy steine and Metamizole may falsely depress this assay. Reference Range HDL <40 mg/dL Low HDL Cholesterol HDL >or= 60 mg/dL High HDL Cholesterol Cholesterol in LDL [Mass/Vol] 97 mg/dL 0-130 [facility] CO2 [Moles/Vol] 32.0 mmol/L 21.0-32.0 [facility] Globulin (S) [Mass/Vol] 3.5 g/dL 2.2-4.2 [facility] Urea nitrogen/Creatinine [Mass ratio] 24.4 mg/mg 10-20 [facility] Laboratory - Hematology and Cell countsOrdered By: Elina Chávez on 01-11-2024 MCH (RBC) [Entitic mass] 27.7 pg 27.0-32.0 [facility] MCHC (RBC) [Mass/Vol] 32.2 g/dL 32-36 [facility] Nucleated RBC/100 WBC (Bld) [Ratio] 0 % 0-5 [facility] Platelet mean volume (Bld) [Entitic vol] 10.9 fL 6.2-12.0 [facility] Platelets (Bld) [#/Vol] 223 10*3/uL 150-450 [facility] No Panel InformationOrdered By: Elina Chávze on 01-11-2024 Estimated GFR (MDRD) Amer 159 mL/min >60 [facility] Comment on above: GFR Calc Estimated GFR (MDRD) Non-Af Amer 132 mL/min >60 [facility] Comment on above: Non- GFR Calc VLDL Cholesterol 12 mg/dL 5-40 [facility] RBC Auto (Bld) [#/Vol]Ordere d By: Elina Chávez on 01-11-2024 RBC (Bld) [#/Vol] 5.67 10*6/uL 4.6-6.2 [facility] Serum or plasma calcium cristina urement (mass/volume)Ordered By: Elina Chávez on 01-11-2024 Calcium [Mass/Vol] 8.8 mg/dL 8.5-10.1 [facility] Serum or plasma creatinine m easurement (mass/volume)Ordered By: Elina Chávez on 01-11-2024 Creatinine [Mass/Vol] 0.70 mg/dL 0.70-1.30 [facility] Comment on above: The validity of the calculated GFR & GFRAA in patients over 70 years has not been determined. Clinical correlation is essential. Serum or plasma oxcarbazepin e measurement (mass/volume)Ordered By: Elina Chávez on 01-11-2024 OXcarbazepine [Mass/Vol] 22 ug/mL 10-35 [facility] Comment on above: This test was develo ped and its performance characteristicsdetermined by [employer]. It has not been cleared orapproved by the Food and Drug Administration. Detection Limit = 1Performed at: [facility] [employer] [address] [id number] Director: Debby Cruz MD, Phone: [phone] Serum or plasma urea nitroge n measurement (mass/volume)Ordered By: Elina Chávez on 01-11-2024 Urea nitrogen [Mass/Vol] 17 mg/dL 7-18 [facility] Thin prep Papanicolaou smear with manual screeningOrdered By: Elina Chávez on 01-11-2024 Thin prep Papanicolaou smear with manual screening 3.6 g/dL 3.2-5.0 [facility] Thin prep Papanicolaou smear with manual screening 13 U/L 15-37 [facility] Thin prep Papanicolaou smear with manual screening 1 5-15 [facility] Laboratory - Microbiology an d Antimicrobial susceptibilityOrdered By: Jovita Contreras on 01-07-2024 SARS-CoV-2 (COVID-19) RNA MEME+probe Ql (Unsp spec) [facility] Absolute lymphocyte countOrd ered By: Evaristo Junior on 12-21-2023 Lymphocytes Auto (Unsp spec) [#/Vol] 1.26 10*3/uL 0.83-4.51 [facility] Automated lymphocyte count a s percentage of total leukocytesOrdered By: Evaristo Pacheco on 12-21-2023 Lymphocytes/100 WBC Auto (Unsp spec) 19.0 % 19-41 [facility] Basophil percentageOrdered B y: Evaristo Pacheco on 12-21-2023 Basophils/100 WBC (Bld) 0.9 % 0-1 [facility] Bilirubin [Mass/Vol] 0.30 mg/dL 0.20-1.00 [facility] Comment on above: For patients on eltr ombopag therapy, use of Dimension [place] TBIL is not recommended. Chloride [Moles/Vol] 105 mmol/L 98-107 [facility] Eosinophils/100 WBC (Bld) 3.2 % 0-5 [facility] Glucose [Mass/Vol] 143 mg/dL 74-106 [facility] Comment on above: Fasting Glucose resu lt greater than or equal to 126 mg/dL suggests DIABETES MELLITUS per A.D.A. criteria. Hemoglobin (Bld) [Mass/Vol] 15.6 g/dL 13.0-16.5 [facility] Monocytes/100 WBC (Bld) 8.2 % 0-10 [facility] Neutrophils (Bld) [#/Vol] 4.5 10*3/uL 2.0-7.7 [facility] Neutrophils/100 WBC (Bld) 68.4 % 47-70 [facility] Potassium [Moles/Vol] 4.3 mmol/L 3.5-5.1 [facility] Protein [Mass/Vol] 7.1 g/dL 6.4-8.2 [facility] Sodium [Moles/Vol] 138 mmol/L 136-145 [facility] WBC (Bld) [#/Vol] 6.6 10*3/uL 4.4-11.0 [facility] Blood manual differential co mment interpretation (narrative result)Ordered By: Evaristo Pacheco on 12-21-2023 Manual differential comment Hood (Bld) [Interp] SCANNED [facility] Determination of erythrocyte mean corpuscular volume (MCV)Ordered By: Evaristo Pacheco on 12-21-2023 MCV (RBC) [Entitic vol] 82.6 fL 80-94 [facility] Direct bilirubinOrdered By: Evaristo Pacheco on 12-21-2023 Bilirubin.direct [Mass/Vol] 0.09 mg/dL 0.00-0.30 [facility] Erythrocyte distribution wid th ratioOrdered By: Evaristo Pacheco on 12-21-2023 Erythrocyte distribution width (RBC) [Ratio] 12.5 % 11.6-14.6 [facility] Erythrocyte distribution wid th standard deviationOrdered By: Evaristo Pacheco on 12-21-2023 Erythrocyte distribution width (RBC) [Entitic vol] 37.6 fL 35.1-43.9 [facility] Hematocrit Auto (Bld) [Volum e fraction]Ordered By: Evaristo Pacheco on 12-21-2023 Hematocrit (Bld) [Volume fraction] 47.4 % 40-54 [facility] Immature granulocytes/100 WB C Auto (Bld)Ordered By: Evaristo Pacheco on 12-21-2023 Immature granulocytes/100 WBC (Bld) 0.300 % 0.0-0.9 [facility] Comment on above: IG% - Immature Granu locytes (promyelocytes, myelocytes and metamyelocytes) > 1% indicates that a LEFT SHIFT is Present. Laboratory - Chemistry and C hemistry - challengeOrdered By: Evaristo Pacheco on 12-21-2023 ALP [Catalytic activity/Vol] 137 U/L 45-117 [facility] ALT [Catalytic activity/Vol] 24 U/L 16-61 [facility] CO2 [Moles/Vol] 30.0 mmol/L 21.0-32.0 [facility] Globulin (S) [Mass/Vol] 3.4 g/dL 2.2-4.2 [facility] Lipase [Catalytic activity/Vol] 18 U/L 13-75 [facility] Comment on above: Please note:LIPASE r evised reference range effective 23. New Lipase methodology. Expected to produce lower values than the previous assay method. NEW Reference Range: 13 - 75 U/L Urea nitrogen/Creatinine [Mass ratio] 14.5 mg/mg 10-20 [facility] Laboratory - Hematology and Cell countsOrdered By: Evaristo Pacheco on 12-21-2023 MCH (RBC) [Entitic mass] 27.2 pg 27.0-32.0 [facility] MCHC (RBC) [Mass/Vol] 32.9 g/dL 32-36 [facility] Nucleated RBC/100 WBC (Bld) [Ratio] 0 % 0-5 [facility] Platelets (Bld) [#/Vol] 198 10*3/uL 150-450 [facility] No Panel InformationOrdered By: Evaristo Pacheco on 12-21-2023 Estimated Creatinine Clearance Calc 104.84 ml/min [facility] Estimated GFR (MDRD) Amer 144 mL/min >60 [facility] Comment on above: GFR Calc Estimated GFR (MDRD) Non-Af Amer 119 mL/min >60 [facility] Comment on above: Non- GFR Calc Platelet mean volume Adrián-Ec ker (Bld) [Entitic vol]Ordered By: Evaristo Pacheco on 12-21-2023 Platelet mean volume (Bld) [Entitic vol] 10.7 fL 6.2-12.0 [facility] RBC Auto (Bld) [#/Vol]Ordere d By: Evaristo Pacheco on 12-21-2023 RBC (Bld) [#/Vol] 5.74 10*6/uL 4.6-6.2 [facility] Serum or plasma calcium cristina urement (mass/volume)Ordered By: Evaristo Pacheco on 12-21-2023 Calcium [Mass/Vol] 8.9 mg/dL 8.5-10.1 [facility] Serum or plasma creatinine m easurement (mass/volume)Ordered By: Evaristo Pacheco on 12-21-2023 Creatinine [Mass/Vol] 0.76 mg/dL 0.70-1.30 [facility] Comment on above: The validity of the calculated GFR & GFRAA in patients over 70 years has not been determined. Clinical correlation is essential. Serum or plasma urea nitroge n measurement (mass/volume)Ordered By: Evaristo Pcaheco on 12-21-2023 Urea nitrogen [Mass/Vol] 11 mg/dL 7-18 [facility] Thin prep Papanicolaou smear with manual screeningOrdered By: Evaristo Pacheco on 12-21-2023 Thin prep Papanicolaou smear with manual screening 3.7 g/dL 3.2-5.0 [facility] Thin prep Papanicolaou smear with manual screening 7 U/L 15-37 [facility] Thin prep Papanicolaou smear with manual screening 3 5-15 [facility] Hepatitis A Antibody, Totalo n 12-16-2023 HAV Ab Ql (S) Negative Negative [facility] Interpretation and review of laboratory results Normal [facility] Test performed using Ella MIGUEL immunoassay system [facility] HIV 1/2 Screen (4th Generati on)on 09-11-2023 HIV 1+2 Ab+HIV1 p24 Ag IA Ql Negative Negative [facility] This assay screens f or the presence of HIV-1, HIV-2 antibodies and for the presence of HIV-1 antigen. Test performed using Ella MIGUEL immunoassay system [facility] Hepatitis B Core Antibody, T otalon 09-11-2023 HBV core Ab Ql (S) Negative Negative [facility] Hepatitis B Surface Antibody on 09-11-2023 HBV surface Ab Ql (S) Negative Negative [facility] Hepatitis B Surface Antigeno n 09-11-2023 HBV surface Ag Ql (S) Negative Negative [facility] No Panel Informationon 09-11 Interpretation and review of laboratory results Normal [facility] Test performed using [employer] MIGUEL immunoassay system [facility] Creatinine [Mass/Vol]on 07-17 GFR/1.73 sq M.predicted CKD-EPI (S/P/Bld) [Vol rate/Area] 113 - PINF [facility] Comment on above: Estimated GFR was ca lculated using the 2020 CKD-EPI creatinine equation. [facility] Laborator y Services has implemented the eGFR calculation approach that does not have a coefficient for race that conforms to the NKF-ASN Task Force Recommendations. [facility] ESR Westergren method (Bld) [Velocity]on 07-30-2023 ESR (Bld) [Velocity] 8 mm/h [facility] Interpretation and review of laboratory results Normal [facility] Hepatic function 2000 panelo n 07-30-2023 Albumin [Mass/Vol] 3.9 g/dL 3.2 - 5.2 g/dL [facility] ALP [Catalytic activity/Vol] 115 U/L 40 - 150 U/L [facility] ALT [Catalytic activity/Vol] 26 U/L 14 - 65 U/L [facility] AST [Catalytic activity/Vol] 15 U/L 0-50 U/L [facility] Bilirubin [Mass/Vol] 0.6 mg/dL 0.0 - 1 .3 mg/dL [facility] Bilirubin.conjugated [Mass/Vol] 0.2 mg/dL 0.0 - 0.4 mg/dL [facility] Protein [Mass/Vol] 7.5 g/dL 6.0 - 8.0 g/dL [facility] Laboratory - Chemistry and C hemistry - challengeon 07-30-2023 Creatinine [Mass/Vol] 0.80 mg/dL 0.50 - 1.30 mg/dL [facility] CRP [Mass/Vol] 5.8 mg/L NINF - 10.0 mg/L [facility] No Panel Informationon 07-30 Interpretation and review of laboratory results Normal [facility] No acute osseous abnormality or significant degenerative changes of the left hand. Workstation ID: [id number] [employer] EXAMINATION: XR HAND LEFT 3+ VIEWS (STANDARD) 07/30/2023 9:24 am HISTORY: ORDERING SYSTEM PROVIDED HISTORY: joint pain, please eval for inflammatory arthritis, TECHNOLOGIST PROVIDED HISTORY: Illness/Other Reason for exam: joint pain, please eval for inflammatory arthritis Cancer History: U Surgery, RadiationHistory: U Encounter Type: Initial Additional signs and symptoms: ORDERING SYSTEM PROVIDED DIAGNOSIS CODES: M35.00 Sjogren's syndrome, with unspecified organ involvement ([facility]) M25.50 Polyarthralgia COMPARISON: None. FINDINGS: No acute fracture or dislocation. The joint spaces are intact. No periarticular erosive changes. Unremarkable soft tissues. [employer] Ruth Sue MD - 07/30/2023 EXAMINATION: XR [...] of the left hand. Workstation ID: [id number] [facility] No acute osseous abnormality or significant degenerative [...] of the right foot. Workstation ID: [id number] [facility] No acute osseous abnormality or significant degenerative [...] preserved. No periarticular erosive changes.Unremarkable soft tissues. [employer] Ruth Sue MD - 07/30/2023 EXAMINATION: XR [...] of the right hand. Workstation ID: [id number] [facility] No acute osseous abnormality of the left foot. Workstation ID: [id number] [employer] EXAMINATION: XR FOOT LEFT 3+ VIEWS (STANDARD) [...] joint spaces are preserved. Unremarkable soft tissues. [employer]IS Rtuh Sue MD - 07/30/2023 EXAMINATION: XR FOOT [...] of the left foot. Workstation ID: [id number] [facility] Radiology Study observation (narrative) [facility] Radiology Study observation (narrative) [facility] Radiology Study observation (narrative) [facility] Panel InformationOrdered By: Ruth Salcedo on 07-30-2023 [facility] Work Phone: XR CHEST AP/PA AND [...] on ThuJul 30, 2023 10:05:51 AM EDT [facility] Comment on above: Order Comment: Injur [...] ThuJul 30, 2023 10:02:19 AM EDT Normal [facility] Comment on above: Order Comment: Injur y/Trauma [...] AM EDT Finalized by: RUTH SUE on [facility] Jul 30, 2023 10:05:18 AM EDT [facility] Comment on above: Order Comment: Injur [...] M35.00 Sjogren's syndrome, with unspecified organ involvement ([facility]) M25.50 Polyarthralgia COMPARISON: None. FINDINGS: [...] Mally Jul 30, 2023 10:07:09 AM EDT [facility] Comment on above: Order Comment: Injur [...] M35.00 Sjogren's syndrome, with unspecified organ involvement ([facility]) M25.50 Polyarthralgia COMPARISON: None. FINDINGS: [...] on ThuJul 30, 2023 10:03:58 AM EDT [facility] Comment on above: Order Comment: Injur y/Trauma or Illness?:Illness/Other How long have you had these symptoms (acute/chronic)?:Acute Reason for exam?:joint pain, please eval for inflammatory arthritis History of cancer?:U Surgeries, chemotherapy, or radiation?:U Type of Exam?:Initial Additional signs and symptoms?: Absolute lymphocyte countOrd ered By: Josselyn Galindo on 06-17-2023 Lymphocytes Auto (Unsp spec) [#/Vol] 1.02 10*3/uL 0.83-4.51 [facility] Basophil percentageOrdered B y: Josselyn Galindo on 06-17-2023 Basophils/100 WBC (Bld) 0.9 % 0-1 [facility] Bilirubin [Mass/Vol] 0.20 mg/dL 0.20-1.[address] [facility] Comment on above: For patients on eltr ombopag therapy, use of Dimension [place] TBIL is not recommended. Chloride [Moles/Vol] 110 mmol/L 98-107 [facility] Cholesterol [Mass/Vol] 132 mg/dL <200 [facility] Comment on above: <200 mg/dL Desirable 200-240 mg/dL Borderline >240 mg/dL High Risk Eosinophils/100 WBC (Bld) 3.9 % 0-5 [facility] Glucose [Mass/Vol] 108 mg/dL 74-106 [facility] Comment on above: Fasting Glucose resu lt from 100 to 125 mg/dL suggests IMPAIRED HOMEOSTASIS per A.D.A. criteria. Neutrophils (Bld) [#/Vol] 3.5 10*3/uL 2.0-7.7 [facility] Neutrophils/100 WBC (Bld) 65.8 % 47-70 [facility] Potassium [Moles/Vol] 4.1 mmol/L 3.5-5.1 [facility] Protein [Mass/Vol] 7.0 g/dL 6.4-8.2 [facility] Sodium [Moles/Vol] 141 mmol/L 136-145 [facility] Triglyceride [Mass/Vol] 105 mg/dL <199 [facility] Comment on above: The drugs N-Acetylcy steine and Metamizole may falsely depress this assay.Serum Triglycerides Reference Interval Normal <150 mg/dL Borderline high 150 - 199 mg/dL High 200 - 499 mg/dL Very High > or = 500 mg/dL WBC (Bld) [#/Vol] 5.3 10*3/uL 4.4-11.0 [facility] Blood erythrocytes count (nu mber/volume)Ordered By: Josselyn Galindo on 06-17-2023 RBC (Bld) [#/Vol] 5.45 10*6/uL 4.6-6.2 [facility] Blood hemoglobin measurement (mass/volume)Ordered By: Josselyn Galindo on 06-17-2023 Hemoglobin (Bld) [Mass/Vol] 15.9 g/dL 13.0-16.5 [facility] Blood lymphocytes/100 leukoc ytesOrdered By: Josselyn Galindo on 06-17-2023 Lymphocytes/100 WBC (Bld) 19.1 % 19-41 [facility] Blood monocytes/100 leukocyt esOrdered By: Josselyn Galindo on 06-17-2023 Monocytes/100 WBC (Bld) 9.9 % 0-10 [facility] Blood platelet mean volumeOr dered By: Josselyn Galindo on 06-17-2023 Platelet mean volume (Bld) [Entitic vol] 10.6 fL 6.2-12.0 [facility] Determination of erythrocyte mean corpuscular volume (MCV)Ordered By: Josselyn Galindo on 06-17-2023 MCV (RBC) [Entitic vol] 90.6 fL 80-94 [facility] Hematocrit Auto (Bld) [Volum e fraction]Ordered By: Josselyn Galindo on 06-17-2023 Hematocrit (Bld) [Volume fraction] 49.4 % 40-54 [facility] Laboratory - Chemistry and C hemistry - challengeOrdered By: Josselyn Galindo on 06-17-2023 ALP [Catalytic activity/Vol] 98 U/L 45-117 [facility] ALT [Catalytic activity/Vol] 19 U/L 16-61 [facility] CO2 [Moles/Vol] 27.0 mmol/L 21.0-32.0 [facility] Globulin (S) [Mass/Vol] 3.8 g/dL 2.2-4.2 [facility] Urea nitrogen/Creatinine [Mass ratio] 14.8 mg/mg 10-20 [facility] Laboratory - Hematology and Cell countsOrdered By: Josselyn Galindo on 06-17-2023 Erythrocyte distribution width (RBC) [Entitic vol] 43.2 fL 35.1-43.9 [facility] Erythrocyte distribution width (RBC) [Ratio] 13.1 % 11.6-14.6 [facility] Immature granulocytes/100 WBC (Bld) 0.400 % 0.0-0.9 [facility] Comment on above: IG% - Immature Granu locytes (promyelocytes, myelocytes and metamyelocytes) > 1% indicates that a LEFT SHIFT is Present. MCH (RBC) [Entitic mass] 29.2 pg 27.0-32.0 [facility] Nucleated RBC/100 WBC (Bld) [Ratio] 0 % 0-5 [facility] MCHC Auto (RBC) [Mass/Vol]Or dered By: Josselyn Galindo on 06-17-2023 MCHC (RBC) [Mass/Vol] 32.2 g/dL 32-36 [facility] No Panel InformationOrdered By: Josselyn Galindo on 06-17-2023 Estimated GFR (MDRD) Amer 166 mL/min >60 [facility] Comment on above: GFR Calc Estimated GFR (MDRD) Non-Af Amer 137 mL/min >60 [facility] Comment on above: Non- GFR Calc Prostate Specific Antigen Screen 0.40 ng/mL 0.00-4.00 [facility] Comment on above: This test was perfor med using the TPSA assay method for [employer] chemistry system. Values obtained with differentassay methods cannot be used interchangably.When changing PSA assays in the course of monitoring apatient, additional sequential testing should be carriedout to confirm baseline values. Thyroid Stimulating Hormone (TSH) 0.66 uIU/mL 0.358-3.74 [facility] Platelets bldOrdered By: Omar Galindo on 06-17-2023 Platelets (Bld) [#/Vol] 191 10*3/uL 150-450 [facility] Serum or plasma albumin cristina urement (mass/volume)Ordered By: Josselyn Galindo on 06-17-2023 Albumin [Mass/Vol] 3.2 g/dL 3.2-5.0 [facility] Serum or plasma albumin/glob ulin mass ratioOrdered By: Josselyn Galindo on 06-17-2023 Albumin/Globulin [Mass ratio] 0.8 {ratio} 0.9-2.4 [facility] Serum or plasma calcium cristina urement (mass/volume)Ordered By: Josselyn Galindo on 06-17-2023 Calcium [Mass/Vol] 8.3 mg/dL 8.5-10.1 [facility] Serum or plasma cholesterol in HDL measurement (mass/volume)Ordered By: Josselyn Galindo on 06-17-2023 Cholesterol in HDL [Mass/Vol] 37 mg/dL >40 [facility] Comment on above: The drugs N-Acetylcy steine and Metamizole may falsely depress this assay. Reference Range HDL <40 mg/dL Low HDL Cholesterol HDL >or= 60 mg/dL High HDL Cholesterol Serum or plasma cholesterol in VLDL measurement (mass/volume)Ordered By: Josselyn Galindo on 06-17-2023 Cholesterol in VLDL [Mass/Vol] 21 mg/dL 5-40 [facility] Serum or plasma creatinine m easurement (mass/volume)Ordered By: Josselyn Galindo on 06-17-2023 Creatinine [Mass/Vol] 0.68 mg/dL 0.70-1.30 [facility] Comment on above: The validity of the calculated GFR & GFRAA in patients over 70 years has not been determined. Clinical correlation is essential. Serum or plasma low density lipoprotein (LDL) cholesterol measurement (mass/volume)Ordered By: Josselyn Galindo on 06-17-2023 Cholesterol in LDL [Mass/Vol] 74 mg/dL 0-130 [facility] Serum or plasma urea nitroge n measurement (mass/volume)Ordered By: Josselyn Galindo on 06-17-2023 Urea nitrogen [Mass/Vol] 10 mg/dL 7-18 [facility] Thin prep Papanicolaou smear with manual screeningOrdered By: Josselyn Galindo on 06-17-2023 Thin prep Papanicolaou smear with manual screening 17 U/L 15-37 [facility] Thin prep Papanicolaou smear with manual screening 4 5-15 [facility] Whole blood hemoglobin A1c/t otal hemoglobin ratio (mass fraction)Ordered By: Josselyn Galindo on 06-17-2023 HbA1c (Bld) [Mass fraction] 5.1 % 3.8-5.6 [facility] Comment on above: Normal < 5.7 % Predi abetic 5.7 - 6.4 % Diabetic >or= 6.5 % Please note range changes. 06-15-2023 36 Manuela is calling [employer] in for an update. She was advised the office is scheduling into next year and is no longer needing to schedule the patient. 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 Archibald Practice: [facility] [place] [facility] Chief Complaint/Reason for Call: Manuela states [...] hours to return their call: No Normal [facility] Absolute lymphocyte countOrd ered By: Keny Guevara on 03-27-2023 Lymphocytes Auto (Unsp spec) [#/Vol] 1.71 10*3/uL 0.83-4.51 [facility] Basophil percentageOrdered B y: Keny Guevara on 03-27-2023 Basophils/100 WBC (Bld) 0.6 % 0-1 [facility] Bilirubin [Mass/Vol] 0.60 mg/dL 0.20-1.00 [facility] Comment on above: For patients on eltr ombopag therapy, use of Dimension [place] TBIL is not recommended. Chloride [Moles/Vol] 101 mmol/L 98-107 [facility] Eosinophils/100 WBC (Bld) 0.6 % 0-5 [facility] Glucose [Mass/Vol] 119 mg/dL 74-106 [facility] Comment on above: Fasting Glucose resu lt from 100 to 125 mg/dL suggests IMPAIRED HOMEOSTASIS per A.D.A. criteria. Neutrophils (Bld) [#/Vol] 11.2 10*3/uL 2.0-7.7 [facility] Neutrophils/100 WBC (Bld) 77.7 % 47-70 [facility] Potassium [Moles/Vol] 3.7 mmol/L 3.5-5.1 [facility] Protein [Mass/Vol] 7.4 g/dL 6.4-8.2 [facility] Sodium [Moles/Vol] 137 mmol/L 136-145 [facility] WBC (Bld) [#/Vol] 14.4 10*3/uL 4.4-11.0 [facility] Blood erythrocytes count (nu mber/volume)Ordered By: Keny Guevara on 03-27-2023 RBC (Bld) [#/Vol] 6.03 10*6/uL 4.6-6.2 [facility] Blood hemoglobin measurement (mass/volume)Ordered By: Keny Guevara on 03-27-2023 Hemoglobin (Bld) [Mass/Vol] 17.9 g/dL 13.0-16.5 [facility] Blood lymphocytes/100 leukoc ytesOrdered By: Keny Guevara on 03-27-2023 Lymphocytes/100 WBC (Bld) 11.9 % 19-41 [facility] Blood monocytes/100 leukocyt esOrdered By: Keny Guevara on 03-27-2023 Monocytes/100 WBC (Bld) 8.6 % 0-10 [facility] Blood platelet mean volumeOr dered By: Keny Guevara on 03-27-2023 Platelet mean volume (Bld) [Entitic vol] 10.5 fL 6.2-12.0 [facility] Determination of erythrocyte mean corpuscular volume (MCV)Ordered By: Keny Guevara on 03-27-2023 MCV (RBC) [Entitic vol] 89.6 fL 80-94 [facility] Erythrocyte sedimentation ra teOrdered By: Keny Guevara on 03-27-2023 ESR (Bld) [Velocity] 9 mm/h 0-20 [facility] Hematocrit Auto (Bld) [Volum e fraction]Ordered By: Keny Guevara on 03-27-2023 Hematocrit (Bld) [Volume fraction] 54.0 % 40-54 [facility] Laboratory - Chemistry and C hemistry - challengeOrdered By: Keny Guevara on 03-27-2023 ALP [Catalytic activity/Vol] 91 U/L 45-117 [facility] ALT [Catalytic activity/Vol] 21 U/L 16-61 [facility] CO2 [Moles/Vol] 29.0 mmol/L 21.0-32.0 [facility] Globulin (S) [Mass/Vol] 3.6 g/dL 2.2-4.2 [facility] Urea nitrogen/Creatinine [Mass ratio] 19.0 mg/mg 10-20 [facility] Laboratory - Hematology and Cell countsOrdered By: Keny Guevara on 03-27-2023 Erythrocyte distribution width (RBC) [Entitic vol] 43.5 fL 35.1-43.9 [facility] Erythrocyte distribution width (RBC) [Ratio] 13.3 % 11.6-14.6 [facility] Immature granulocytes/100 WBC (Bld) 0.600 % 0.0-0.9 [facility] Comment on above: IG% - Immature Granu locytes (promyelocytes, myelocytes and metamyelocytes) > 1% indicates that a LEFT SHIFT is Present. MCH (RBC) [Entitic mass] 29.7 pg 27.0-32.0 [facility] Nucleated RBC/100 WBC (Bld) [Ratio] 0 % 0-5 [facility] MCHC Auto (RBC) [Mass/Vol]Or dered By: Keny Guevara on 03-27-2023 MCHC (RBC) [Mass/Vol] 33.1 g/dL 32-36 [facility] No Panel InformationOrdered By: Keny Guevara on 03-27-2023 Endomysial IgA Antibody Negative Negative [facility] Estimated GFR (MDRD) Amer 139 mL/min >60 [facility] Comment on above: GFR Calc Estimated GFR (MDRD) Non-Af Amer 115 mL/min >60 [facility] Comment on above: Non- GFR Calc Platelets bldOrdered By: Vitor Guevara on 03-27-2023 Platelets (Bld) [#/Vol] 253 10*3/uL 150-450 [facility] Serum IgA measurement (units /volume)Ordered By: Keny Guevara on 03-27-2023 IgA Qn (S) 211 mg/dL 90-386 [facility] Comment on above: Performed at: [address] [id number] Director: Carlos Eduardo Teague PhD, Phone: [phone] Serum or plasma C reactive p rotein measurement (mass/volume)Ordered By: Keny Guevara on 03-27-2023 CRP [Mass/Vol] 22.40 mg/L 0.0-3.0 [facility] Comment on above: C-Reactive Protein ( CRP) provides useful information for thediagnosis, therapy and monitoring of inflammatory processesand associated diseases. For the evaluation of Relative Riskfor Cardiovascular Disease, a High Sensitivity CRP (HSCRP)should be ordered. Serum or plasma albumin cristina urement (mass/volume)Ordered By: Keny Guevara on 03-27-2023 Albumin [Mass/Vol] 3.8 g/dL 3.2-5.0 [facility] Serum or plasma albumin/glob ulin mass ratioOrdered By: Keny Guevara on 03-27-2023 Albumin/Globulin [Mass ratio] 1.1 {ratio} 0.9-2.4 [facility] Serum or plasma calcium cristina urement (mass/volume)Ordered By: Keny Guevara on 03-27-2023 Calcium [Mass/Vol] 9.2 mg/dL 8.5-10.1 [facility] Serum or plasma creatinine m easurement (mass/volume)Ordered By: Keny Guevara on 03-27-2023 Creatinine [Mass/Vol] 0.79 mg/dL 0.70-1.30 [facility] Comment on above: The validity of the calculated GFR & GFRAA in patients over 70 years has not been determined. Clinical correlation is essential. Serum or plasma urea nitroge n measurement (mass/volume)Ordered By: Keny Guevara on 03-27-2023 Urea nitrogen [Mass/Vol] 15 mg/dL 7-18 [facility] Serum tissue transglutaminas e IgA antibody assay (units/volume)Ordered By: Keny Guevara on 03-27-2023 tTG IgA Qn (S) <2 U/mL 0-3 [facility] Comment on above: Negative 0 - 3 Weak Positive 4 - 10 Positive >10 Tissue Transglutaminase (tTG) has been identified as the endomysial antigen. Studies have demonstr- ated that endomysial IgA antibodies have over 99% specificity for gluten sensitive enteropathy. Thin prep Papanicolaou smear with manual screeningOrdered By: Keny Guevara on 03-27-2023 Thin prep Papanicolaou smear with manual screening 13 U/L 15-37 [facility] Thin prep Papanicolaou smear with manual screening 7 5-15 [facility] Absolute lymphocyte countOrd ered By: Keny Guevara on 11-27-2022 Lymphocytes Auto (Unsp spec) [#/Vol] 1.18 10*3/uL 0.83-4.51 [facility] Basophil percentageOrdered B y: Keny Guevara on 11-27-2022 Basophils/100 WBC (Bld) 0.3 % 0-1 [facility] Bilirubin [Mass/Vol] 0.40 mg/dL 0.20-1.00 [facility] Comment on above: For patients on eltr ombopag therapy, use of Dimension [place] TBIL is not recommended. Chloride [Moles/Vol] 110 mmol/L 98-107 [facility] Eosinophils/100 WBC (Bld) 1.6 % 0-5 [facility] Glucose [Mass/Vol] 121 mg/dL 74-106 [facility] Comment on above: Fasting Glucose resu lt from 100 to 125 mg/dL suggests IMPAIRED HOMEOSTASIS per A.D.A. criteria. Neutrophils (Bld) [#/Vol] 7.6 10*3/uL 2.0-7.7 [facility] Neutrophils/100 WBC (Bld) 78.0 % 47-70 [facility] Potassium [Moles/Vol] 4.1 mmol/L 3.5-5.1 [facility] Protein [Mass/Vol] 7.1 g/dL 6.4-8.2 [facility] Sodium [Moles/Vol] 141 mmol/L 136-145 [facility] WBC (Bld) [#/Vol] 9.8 10*3/uL 4.4-11.0 [facility] Blood erythrocytes count (nu mber/volume)Ordered By: Keny Guevara on 11-27-2022 RBC (Bld) [#/Vol] 5.38 10*6/uL 4.6-6.2 [facility] Blood hemoglobin measurement (mass/volume)Ordered By: Keny Guevara on 11-27-2022 Hemoglobin (Bld) [Mass/Vol] 15.6 g/dL 13.0-16.5 [facility] Blood lymphocytes/100 leukoc ytesOrdered By: Keny Guevara on 11-27-2022 Lymphocytes/100 WBC (Bld) 12.1 % 19-41 [facility] Blood monocytes/100 leukocyt esOrdered By: Keny Guevara on 11-27-2022 Monocytes/100 WBC (Bld) 7.9 % 0-10 [facility] Blood platelet mean volumeOr dered By: Keny Guevara on 11-27-2022 Platelet mean volume (Bld) [Entitic vol] 11.1 fL 6.2-12.0 [facility] Determination of erythrocyte mean corpuscular volume (MCV)Ordered By: Keny Guevara on 11-27-2022 MCV (RBC) [Entitic vol] 86.6 fL 80-94 [facility] Erythrocyte sedimentation ra teOrdered By: Keny Guevara on 11-27-2022 ESR (Bld) [Velocity] 16 mm/h 0-20 [facility] Hematocrit Auto (Bld) [Volum e fraction]Ordered By: Keny Guevara on 11-27-2022 Hematocrit (Bld) [Volume fraction] 46.6 % 40-54 [facility] Laboratory - Chemistry and C hemistry - challengeOrdered By: Keny Guevara on 11-27-2022 ALP [Catalytic activity/Vol] 93 U/L 45-117 [facility] ALT [Catalytic activity/Vol] 16 U/L 16-61 [facility] CO2 [Moles/Vol] 30.0 mmol/L 21.0-32.0 [facility] Globulin (S) [Mass/Vol] 3.5 g/dL 2.2-4.2 [facility] Urea nitrogen/Creatinine [Mass ratio] 14.2 mg/mg 10-20 [facility] Laboratory - Hematology and Cell countsOrdered By: Keny Guevara on 11-27-2022 Erythrocyte distribution width (RBC) [Entitic vol] 41.1 fL 35.1-43.9 [facility] Erythrocyte distribution width (RBC) [Ratio] 13.1 % 11.6-14.6 [facility] Immature granulocytes/100 WBC (Bld) 0.100 % 0.0-0.9 [facility] Comment on above: IG% - Immature Granu locytes (promyelocytes, myelocytes and metamyelocytes) > 1% indicates that a LEFT SHIFT is Present. MCH (RBC) [Entitic mass] 29.0 pg 27.0-32.0 [facility] Nucleated RBC/100 WBC (Bld) [Ratio] 0 % 0-5 [facility] Auto (RBC) [Mass/Vol]Or dered By: Keny Guevara on 11-27-2022 MCHC (RBC) [Mass/Vol] 33.5 g/dL 32-36 [facility] No Panel InformationOrdered By: Keny Guevara on 11-27-2022 Endomysial IgA Antibody Negative Negative [facility] Estimated GFR (MDRD) Amer 159 mL/min >60 [facility] Comment on above: GFR Calc Estimated GFR (MDRD) Non-Af Amer 131 mL/min >60 [facility] Comment on above: Non- GFR Calc Miscellaneous Test See comment [facility] Comment on above: TEST RESULT LIMITSTh [...] developed and its performance characteristics determined by [employer]. It has not been cleared or approved by the Food and Drug Administration. This case has been reviewed, approved, interpreted and electronically signed by Jose Aguilar, PhD, [facility].Methodology Enzymatic Endpoint/Liquid Chromatography - Tandem Mass Spectrometry (LC-MS/MS) ____ TESTING PERFORMED AT [employer]. ORIGINAL REPORT ON FILE IN LAB CONTAINS ADDITIONAL TEST SITE INFORMATION. Platelets bldOrdered By: Vitor Guevara on 11-27-2022 Platelets (Bld) [#/Vol] 204 10*3/uL 150-450 [facility] Serum IgA measurement (units /volume)Ordered By: Keny Guevara on 11-27-2022 IgA Qn (S) 203 mg/dL 90-386 [facility] Comment on above: Performed at: [place] [id number] Director: Carlos Eduardo Teague PhD, Phone: [phone] Serum or plasma C reactive p rotein measurement (mass/volume)Ordered By: Keny Guevara on 11-27-2022 CRP [Mass/Vol] 4.83 mg/L 0.0-3.0 [facility] Comment on above: C-Reactive Protein ( CRP) provides useful information for thediagnosis, therapy and monitoring of inflammatory processesand associated diseases. For the evaluation of Relative Riskfor Cardiovascular Disease, a High Sensitivity CRP (HSCRP)should be ordered. Serum or plasma albumin cristina urement (mass/volume)Ordered By: Keny Guevara on 11-27-2022 Albumin [Mass/Vol] 3.6 g/dL 3.2-5.0 [facility] Serum or plasma albumin/glob ulin mass ratioOrdered By: Keny Guevara on 11-27-2022 Albumin/Globulin [Mass ratio] 1.0 {ratio} 0.9-2.4 [facility] Serum or plasma calcium cristina urement (mass/volume)Ordered By: Keny Guevara on 11-27-2022 Calcium [Mass/Vol] 8.7 mg/dL 8.5-10.1 [facility] Serum or plasma creatinine m easurement (mass/volume)Ordered By: Keny Guevara on 11-27-2022 Creatinine [Mass/Vol] 0.70 mg/dL 0.70-1.30 [facility] Comment on above: The validity of the calculated GFR & GFRAA in patients over 70 years has not been determined. Clinical correlation is essential. Serum or plasma urea nitroge n measurement (mass/volume)Ordered By: Keny Guevara on 11-27-2022 Urea nitrogen [Mass/Vol] 10 mg/dL 7-18 [facility] Serum tissue transglutaminas e IgA antibody assay (units/volume)Ordered By: Keny Guevara on 11-27-2022 tTG IgA Qn (S) <2 U/mL 0-3 [facility] Comment on above: Negative 0 - 3 Weak Positive 4 - 10 Positive >10 Tissue Transglutaminase (tTG) has been identified as the endomysial antigen. Studies have demonstr- ated that endomysial IgA antibodies have over 99% specificity for gluten sensitive enteropathy. Thin prep Papanicolaou smear with manual screeningOrdered By: Keny Guevara on 11-27-2022 Thin prep Papanicolaou smear with manual screening 10 U/L 15-37 [facility] Thin prep Papanicolaou smear with manual screening 1 5-15 [facility] Absolute lymphocyte countOrd ered By: Keny Guevara on 11-13-2022 Lymphocytes Auto (Unsp spec) [#/Vol] 3.14 10*3/uL 0.83-4.51 [facility] Basophil percentageOrdered B y: Keny Guevara on 11-13-2022 Basophils/100 WBC (Bld) 0.3 % 0-1 [facility] Bilirubin [Mass/Vol] 0.20 mg/dL 0.20-1.00 [facility] Comment on above: For patients on eltr ombopag therapy, use of Dimension [place] TBIL is not recommended. Chloride [Moles/Vol] 105 mmol/L 98-107 [facility] Eosinophils/100 WBC (Bld) 1.8 % 0-5 [facility] Glucose [Mass/Vol] 86 mg/dL 74-106 [facility] Neutrophils (Bld) [#/Vol] 8.4 10*3/uL 2.0-7.7 [facility] Neutrophils/100 WBC (Bld) 64.5 % 47-70 [facility] Potassium [Moles/Vol] 4.2 mmol/L 3.5-5.1 [facility] Protein [Mass/Vol] 6.7 g/dL 6.4-8.2 [facility] Sodium [Moles/Vol] 138 mmol/L 136-145 [facility] WBC (Bld) [#/Vol] 13.0 10*3/uL 4.4-11.0 [facility] Blood erythrocytes count (nu mber/volume)Ordered By: Keny Guevara on 11-13-2022 RBC (Bld) [#/Vol] 5.24 10*6/uL 4.6-6.2 [facility] Blood hemoglobin measurement (mass/volume)Ordered By: Keny Guevara on 11-13-2022 Hemoglobin (Bld) [Mass/Vol] 15.3 g/dL 13.0-16.5 [facility] Blood lymphocytes/100 leukoc ytesOrdered By: Keny Guevara on 11-13-2022 Lymphocytes/100 WBC (Bld) 24.2 % 19-41 [facility] Blood monocytes/100 leukocyt esOrdered By: Keny Guevara on 11-13-2022 Monocytes/100 WBC (Bld) 8.7 % 0-10 [facility] Blood platelet mean volumeOr dered By: Keny Guevara on 11-13-2022 Platelet mean volume (Bld) [Entitic vol] 10.4 fL 6.2-12.0 [facility] Determination of erythrocyte mean corpuscular volume (MCV)Ordered By: Keny Guevara on 11-13-2022 MCV (RBC) [Entitic vol] 87.8 fL 80-94 [facility] Hematocrit Auto (Bld) [Volum e fraction]Ordered By: Keny Guevara on 11-13-2022 Hematocrit (Bld) [Volume fraction] 46.0 % 40-54 [facility] Laboratory - Chemistry and C hemistry - challengeOrdered By: Keny Guevara on 11-13-2022 ALP [Catalytic activity/Vol] 65 U/L 45-117 [facility] ALT [Catalytic activity/Vol] 17 U/L 16-61 [facility] CO2 [Moles/Vol] 33.0 mmol/L 21.0-32.0 [facility] Globulin (S) [Mass/Vol] 3.4 g/dL 2.2-4.2 [facility] Urea nitrogen/Creatinine [Mass ratio] 30.5 mg/mg 10-20 [facility] Laboratory - Hematology and Cell countsOrdered By: Keny Guevara on 11-13-2022 Erythrocyte distribution width (RBC) [Entitic vol] 42.0 fL 35.1-43.9 [facility] Erythrocyte distribution width (RBC) [Ratio] 13.1 % 11.6-14.6 [facility] Immature granulocytes/100 WBC (Bld) 0.500 % 0.0-0.9 [facility] Comment on above: IG% - Immature Granu locytes (promyelocytes, myelocytes and metamyelocytes) > 1% indicates that a LEFT SHIFT is Present. MCH (RBC) [Entitic mass] 29.2 pg 27.0-32.0 [facility] Nucleated RBC/100 WBC (Bld) [Ratio] 0 % 0-5 [facility] MCHC Auto (RBC) [Mass/Vol]Or dered By: Keny Guevara on 11-13-2022 MCHC (RBC) [Mass/Vol] 33.3 g/dL 32-36 [facility] No Panel InformationOrdered By: Keny Guevara on 11-13-2022 Estimated GFR (MDRD) Amer 182 mL/min >60 [facility] Comment on above: GFR Calc Estimated GFR (MDRD) Non-Af Amer 151 mL/min >60 [facility] Comment on above: Non- GFR Calc Platelets bldOrdered By: Vitor Guevara on 11-13-2022 Platelets (Bld) [#/Vol] 224 10*3/uL 150-450 [facility] Serum or plasma albumin cristina urement (mass/volume)Ordered By: Keny Guevara on 11-13-2022 Albumin [Mass/Vol] 3.3 g/dL 3.2-5.0 [facility] Serum or plasma albumin/glob ulin mass ratioOrdered By: Keny Guevara on 11-13-2022 Albumin/Globulin [Mass ratio] 1.0 {ratio} 0.9-2.4 [facility] Serum or plasma calcium cristina urement (mass/volume)Ordered By: Keny Guevara on 11-13-2022 Calcium [Mass/Vol] 8.6 mg/dL 8.5-10.1 [facility] Serum or plasma creatinine m easurement (mass/volume)Ordered By: Keny Guevara on 11-13-2022 Creatinine [Mass/Vol] 0.62 mg/dL 0.70-1.30 [facility] Comment on above: The validity of the calculated GFR & GFRAA in patients over 70 years has not been determined. Clinical correlation is essential. Serum or plasma urea nitroge n measurement (mass/volume)Ordered By: Keny Guevara on 11-13-2022 Urea nitrogen [Mass/Vol] 19 mg/dL 7-18 [facility] Thin prep Papanicolaou smear with manual screeningOrdered By: Keny Guevara on 11-13-2022 Thin prep Papanicolaou smear with manual screening 8 U/L 15-37 [facility] Thin prep Papanicolaou smear with manual screening 0 5-15 [facility] CNPNon 11-07-2022 JADA Telephone ([facility]) ----- JOSE MCNAMARA ([id number]) 1980 M Date Time Provider Department 11/07/22 REINALDO PEREIRA During your visit today, we recorded the following information about you: Reinaldo Pereira PA-C 11/07/2022 7:20 AM Signed Please call and let patient know he did test positive for influenza A. Continue [id number] medications as needed for cough and congestion. [...] Date Reviewed: 11/06/2022 Reviewed by: Edward Powell APRN.[employer]GER - Fully Assessed Reason for Visit: Results [...] by CALLIE COE LPN on 11/07/22 Normal [facility] Influenza virus A and B RNA and SARS-CoV-2 (COVID-19) N gene panel MEME+probe (Resp)on 11-07-2022 FLUAV RNA MEME+probe Ql (Unsp spec) Positive Abnormal Negative for Influenza A by RT-PCR [facility] FLUBV RNA MEME+probe Ql (Unsp spec) Negative Negative for Influenza B by RT-PCR [facility] SARS-CoV-2 (COVID-19) RNA MEME+probe Ql (Resp) SARS-CoV-2 (Agent of COVID-19) Not Detected by RT-PCR or equivalent method. Not Detected [facility] CNOVon 11-06-2022 CNOV Office Visit ([facility] ) ----- JOSE MCNAMARA ([id number]) 1980 M Date Time Provider Department 11/06/22 12:00 PM EDWARD POWELL [facility] During your visit today, we recorded the following information about you: Temperature Pulse Respiration Blood pressure 97.9 degrees 84/minute 18/minute 102/64 Weight 58.8 kg Edward Powell APRN.MAJ[employer] GIFTS MANAGER 11/06/2022 11:53 AM Signed How to Manage [...] severe or concerning to you. Edward Powell APRN.MAJOR GIFTS MANAGER 11/06/2022 12:09 PM Signed Subjective HPI Nontoxic-appearing male presents to urgent care with chief complaint of fever and cough. Duration of symptoms 2 days. Associated symptoms with today's chief complaint are on and off headache, muscle aches, fatigue, nonproductive cough, and sore throat. Patient stated symptoms started abruptly. Patient states they have used oviv-hvi-eqaejmi medication with some success. Patient states they [...] use all (more content not included)... Normal [facility] No Panel InformationOrdered By: Keny Friend on 09-26-2022 Miscellaneous Test See comment [facility] Comment on above: TEST RESULT LIMITSIB [...] developed and its performance characteristics determined by [employer]. It has not been cleared or approved by the Food and Drug Administration. The FDA has determined that such clearance or approval is not necessary.Atypical pANCA Negative NegativeComments Abnormal Suggestive of Crohn's Disease. Pattern is not conclusive for disease behavior risk stratification. TESTING PERFORMED AT [facility]. ORIGINAL REPORT ON FILE IN LAB CONTAINS ADDITIONAL TEST SITE INFORMATION. No Panel Informationon 08-05 Stool Calprotectin <16 ug/g 0-120 [facility] Work Phone: Comment on above: Concentration Interp retation Follow-Up<16 - 50 ug/g Normal None>50 -120 ug/g Borderline Re-evaluate in 4-6 weeks >120 ug/g Abnormal Repeat as clinically indicatedPerformed at: [facility] [address] [id number] Director: Debby Cruz MD, Phone: [phone] Absolute lymphocyte counton 07-15-2022 Lymphocytes Auto (Unsp spec) [#/Vol] 1.68 10*3/uL 0.83-4.51 [facility] Work Phone: Albumin Elph [Mass/Vol]on Albumin [Mass/Vol] Not Reportable [facility] Work Phone: Basophil percentageon 2021 Basophil percentage < 0.2 AI 0.0-0.9 [facility] Work Phone: Basophil percentage 1.7 AI 0.0-0.9 [facility] Work Phone: Basophils/100 WBC (Bld) 0.3 % 0-1 [facility] Work Phone: Bilirubin [Mass/Vol] 0.20 mg/dL 0.20-1.00 [facility] Work Phone: Comment on above: For patients on eltr ombopag therapy, use of Dimension [place] TBIL is not recommended. Chloride [Moles/Vol] 105 mmol/L 98-107 [facility] Work Phone: Eosinophils/100 WBC (Bld) 1.7 % 0-5 [facility] Work Phone: Glucose [Mass/Vol] 88 mg/dL 74-106 [facility] Work Phone: [phone] Neutrophils (Bld) [#/Vol] 14.2 10*3/uL 2.0-7.7 [facility] Work Phone: Neutrophils/100 WBC (Bld) 81.8 % 47-70 [facility] Work Phone: Potassium [Moles/Vol] 3.9 mmol/L 3.5-5.1 [facility] Work Phone: Protein [Mass/Vol] 7.4 g/dL 6.4-8.2 [facility] Work Phone: Sodium [Moles/Vol] 140 mmol/L 136-145 [facility] Work Phone: WBC (Bld) [#/Vol] 17.4 10*3/uL 4.4-11.0 [facility] Work Phone: Blood erythrocytes count (nu mber/volume)on 07-15-2022 RBC (Bld) [#/Vol] 5.53 10*6/uL 4.6-6.2 [facility] Work Phone: Blood hemoglobin measurement (mass/volume)on 07-15-2022 Hemoglobin (Bld) [Mass/Vol] 15.3 g/dL 13.0-16.5 [facility] Work Phone: [phone] Blood lymphocytes/100 leukoc yteson 07-15-2022 Lymphocytes/100 WBC (Bld) 9.6 % 19-41 [facility] Work Phone: [phone] Blood monocytes/100 leukocyt eson 07-15-2022 Monocytes/100 WBC (Bld) 6.4 % 0-10 [facility] Work Phone: Blood platelet mean volumeon 07-15-2022 Platelet mean volume (Bld) [Entitic vol] 11.6 fL 6.2-12.0 [facility] Work Phone: Determination of erythrocyte mean corpuscular volume (MCV)on 07-15-2022 MCV (RBC) [Entitic vol] 84.8 fL 80-94 [facility] Work Phone: Erythrocyte sedimentation ra shantanu 07-15-2022 ESR (Bld) [Velocity] 11 mm/h 0-20 [facility] Work Phone: [phone] Hematocrit Auto (Bld) [Volum e fraction]on 07-15-2022 Hematocrit (Bld) [Volume fraction] 46.9 % 40-54 [facility] Work Phone: Interpretation of serum or p lasma protein pattern by immunofixation (narrative resulton 07-15-2022 Protein Fractions Immunofixation Hood [Interp] Not Reportable [facility] Work Phone: Laboratory - Chemistry and C hemistry - challengeon 07-15-2022 ALP [Catalytic activity/Vol] 102 U/L 45-117 [facility] Work Phone: ALT [Catalytic activity/Vol] 18 U/L 16-61 [facility] Work Phone: CO2 [Moles/Vol] 30.0 mmol/L 21.0-32.0 [facility] Work Phone: Globulin (S) [Mass/Vol] 3.7 g/dL 2.2-4.2 [facility] Work Phone: Urea nitrogen/Creatinine [Mass ratio] 15.7 mg/mg 10-20 [facility] Work Phone: Laboratory - Hematology and Cell countson 07-15-2022 Erythrocyte distribution width (RBC) [Entitic vol] 39.9 fL 35.1-43.9 [facility] Work Phone: Erythrocyte distribution width (RBC) [Ratio] 12.9 % 11.6-14.6 [facility] Work Phone: Immature granulocytes/100 WBC (Bld) 0.200 % 0.0-0.9 [facility] Work Phone: Comment on above: IG% - Immature Granu locytes (promyelocytes, myelocytes and metamyelocytes) > 1% indicates that a LEFT SHIFT is Present. MCH (RBC) [Entitic mass] 27.7 pg 27.0-32.0 [facility] Work Phone: Nucleated RBC/100 WBC (Bld) [Ratio] 0 % 0-5 [facility] Work Phone: MCHC Auto (RBC) [Mass/Vol]on 07-15-2022 MCHC (RBC) [Mass/Vol] 32.6 g/dL 32-36 [facility] Work Phone: No Panel Informationon 07-15 Centromere B Antibody <0.2 AI 0.0-0.9 [facility] Work Phone: Endomysial IgA Antibody Negative Negative [facility] Work Phone: Estimated GFR (MDRD) Amer 121 mL/min >60 [facility] Work Phone: Comment on above: GFR Calc Estimated GFR (MDRD) Non-Af Amer 100 mL/min >60 [facility] Work Phone: Comment on above: Non- GFR Calc Hepatitis C Antibody Preliminary Reactive Nonre active [facility] Work Phone: Comment on above: Non Reactive: < 0.8 Equivocal: >/= 0.8 to < 1.0 Reactive: >/= 1.0The CDC recommends that a reactive/equivocal HCV antibody result be followed up by the HCV Nucleic Acid Amplificationtest (259714) Hepatitis C Genotype See comment [facility] Work Phone: Comment on above: TEST RESULT LIMITSHC V Genotyping Non ReflexHepatitis C Genotype Test not performed. We are unable to determine the genotype and/or phenotype of this sample due to insufficient viral copy number. Samples with low viral loads will often fail PCR amplification.Please note: This test was developed and its performance characteristics determined by [employer]. It has not been cleared or approved by the U.S. Food and Drug Administration. The FDA has determined that such clearance or approval is notnecessary. This test is used for clinical purposes. It should not be regarded as investigational or for research. ___ TESTING PERFORMED AT [facility]. ORIGINAL REPORT ON FILE IN LAB CONTAINS ADDITIONAL TEST SITE INFORMATION. Immunoglobulin E See comment [facility] Work Phone: Comment on above: TEST RESULT LIMITSIm munoglobulin E, Total <2 Low IU/mL 6-495 TESTING PERFORMED AT [facility]. ORIGINAL REPORT ON FILE IN LAB CONTAINS ADDITIONAL TEST SITE INFORMATION. DOUBLING MACHINE OPERATOR Antibody 0.9 AI 0.0-0.9 [facility] Work Phone: Platelets bldon 07-15-2022 Platelets (Bld) [#/Vol] 221 10*3/uL 150-450 [facility] Work Phone: Serum DNA double strand anti body assay (units/volume)on 07-15-2022 DNA double strand Ab Qn (S) 2 [IU]/mL 0-9 [facility] Work Phone: Comment on above: Negative <5 Equivoca l 5 - 9 Positive >9 Serum Cammie-1 antibody assay (u nits/volume)on 07-15-2022 Cammie-1 extractable nuclear Ab Qn (S) <0.2 AI 0.0-0.9 [facility] Work Phone: Serum Scl-70 extractable nuc lear antibody assay (units/volume)on 07-15-2022 SCL-70 extractable nuclear Ab Qn (S) <0.2 AI 0.0-0.9 [facility] Work Phone: Serum Park extractable nucl ear antibody detectionon 07-15-2022 Park extractable nuclear Ab Ql (S) <0.2 AI 0.0-0.9 [facility] Work Phone: Serum dejip-6-wfmhemlr measu rement by electrophoresison 07-15-2022 Alpha 1 globulin Elph [Mass/Vol] Not Reportable [facility] Work Phone: Serum classic neutrophil cyt oplasmic antibody assay (units/volume)on 07-15-2022 Neutrophil cytoplasmic Ab.classic Qn (S) See comment [facility] Work Phone: Comment on above: TEST RESULT [...] up testing of positive sera with both MI-3 and MPO-ANCA enzyme immunoassays. As many as 5% serum samples are positive only by EIA.Ref. AM J Clin Pathol 1999;111:507-513.Atypical pANCA <1:20 titer Neg:<1:20The atypical pANCA pattern has been observed in a significant percentage of patients with ulcerative colitis, primary sclerosing cholangitis and autoimmune hepatitis. ____ TESTING PERFORMED AT [facility]. ORIGINAL REPORT ON FILE IN LAB CONTAINS ADDITIONAL TEST SITE INFORMATION. Serum or plasma C reactive p rotein measurement (mass/volume)on 07-15-2022 CRP [Mass/Vol] 12.20 mg/L 0.0-3.0 [facility] Work Phone: Comment on above: C-Reactive Protein ( CRP) provides useful information for thediagnosis, therapy and monitoring of inflammatory processesand associated diseases. For the evaluation of Relative Riskfor Cardiovascular Disease, a High Sensitivity CRP (HSCRP)should be ordered. Serum or plasma IgA measurem ent (mass/volume)on 07-15-2022 IgA [Mass/Vol] Not Reportable [facility] Work Phone: Serum or plasma IgG measurem ent (mass/volume)on 07-15-2022 IgG [Mass/Vol] Not Reportable [facility] Work Phone: Serum or plasma IgM measurem ent (mass/volume)on 07-15-2022 IgM [Mass/Vol] Not Reportable [facility] Work Phone: Serum or plasma albumin cristina urement (mass/volume)on 07-15-2022 Albumin [Mass/Vol] 3.7 g/dL 3.2-5.0 [facility] Work Phone: Serum or plasma albumin/glob ulin mass ratioon 07-15-2022 Albumin/Globulin [Mass ratio] 1.0 {ratio} 0.9-2.4 [facility] Work Phone: Serum or plasma beta globuli n measurement by electrophoresis (mass/volume)on 07-15-2022 Beta globulin Elph [Mass/Vol] Not Reportable [facility] Work Phone: Serum or plasma calcium cristina urement (mass/volume)on 07-15-2022 Calcium [Mass/Vol] 8.5 mg/dL 8.5-10.1 [facility] Work Phone: Serum or plasma creatinine m easurement (mass/volume)on 07-15-2022 Creatinine [Mass/Vol] 0.89 mg/dL 0.70-1.30 [facility] Work Phone: Comment on above: The validity of the calculated GFR & GFRAA in patients over 70 years has not been determined. Clinical correlation is essential. Serum or plasma gamma globul in measurement by electrophoresis (mass/volume)on 07-15-2022 Gamma globulin Elph [Mass/Vol] Not Reportable [facility] Work Phone: Serum or plasma hepatitis C virus RNA measurement by probe and target amplification mon 07-15-2022 HCV RNA MEME+probe Qn See comment [facility] Work Phone: Comment on above: TEST RESULT LIMITSHC V RT-PCR, Quant (Non-Graph)Hepatitis C Quantitation HCV Not Detected IU/mLTest Information: The quantitative range of this assay is 15 IU/mL to 100 million IU/mL. TESTING PERFORMED AT [facility]. ORIGINAL REPORT ON FILE IN LAB CONTAINS ADDITIONAL TEST SITE INFORMATION. Serum or plasma urea nitroge n measurement (mass/volume)on 07-15-2022 Urea nitrogen [Mass/Vol] 14 mg/dL 7-18 [facility] Work Phone: Serum perinuclear neutrophil cytoplasmic antibody titer by immunofluorescenceon 07-15-2022 Neutrophil cytoplasmic Ab.perinuclear IF (S) [Titer] Not Reportable [facility] Work Phone: Serum tissue transglutaminas e IgA antibody assay (units/volume)on 07-15-2022 tTG IgA Qn (S) 5 U/mL 0-3 [facility] Work Phone: Comment on above: Negative 0 - 3 Weak Positive 4 - 10 Positive >10 Tissue Transglutaminase (tTG) has been identified as the endomysial antigen. Studies have demonstr- ated that endomysial IgA antibodies have over 99% specificity for gluten sensitive enteropathy. Thin prep Papanicolaou smear with manual screeningon 07-15-2022 Thin prep Papanicolaou smear with manual screening 15 U/L 15-37 [facility] Work Phone: Thin prep Papanicolaou smear with manual screening 5 5-15 [facility] Work Phone: Thin prep Papanicolaou smear with manual screening 232 U/L 87-241 [facility] Work Phone: Thin prep Papanicolaou smear with manual screening Not Reportable [facility] Work Phone: Total protein bloodon 2021 Protein [Mass/Vol] See comment [facility] Work Phone: Comment on above: TEST RESULT LIMITSIF E and PE, SerumImmunoglobulin G, Qn, Serum 880 mg/dL [id number] A, Qn, Serum 204 mg/dL 90-386Immunoglobulin M, Qn, Serum 202 High mg/dL 20-172Protein, Total 7.0 g/dL 6.0-8.5Albumin 3.7 g/dL 2.9-4.4Oozmq-3-Girrjdyz 0.4 g/dL 0.0-0.5Frrme-5-Wcukmezy 0.8 g/dL 0.4-1.0Beta Globulin 0.9 g/dL 0.7-1.3Gamma Globulin 1.2 g/dL 0.4-1.8M-Martin Not Observed g/dL Not ObservedGlobulin, Total 3.3 g/dL 2.2-3.9A/G Ratio 1.2 0.7-1.7[employer] Result, Serum No monoclonality detected.Please note: Protein electrophoresis scan will follow via computer, mail, or rejoiner delivery. Absolute lymphocyte counton 05-22-2022 Lymphocytes Auto (Unsp spec) [#/Vol] 0.96 10*3/uL 0.83-4.51 [facility] Work Phone: Basophil percentageon 2021 Basophil percentage 0-5 SEEN /hpf 0-5 [facility] Work Phone: Basophils/100 WBC (Bld) 0.6 % 0-1 [facility] Work Phone: Eosinophils/100 WBC (Bld) 1.5 % 0-5 [facility] Work Phone: [phone] Neutrophils (Bld) [#/Vol] 8.6 10*3/uL 2.0-7.7 [facility] Work Phone: Neutrophils/100 WBC (Bld) 85.0 % 47-70 [facility] Work Phone: WBC (Bld) [#/Vol] 10.2 10*3/uL 4.4-11.0 [facility] Work Phone: [phone] Bilirubin Test strip Ql (U)o n 05-22-2022 Bilirubin Ql (U) Negative Negative [facility] Work Phone: Blood erythrocytes count (nu mber/volume)on 05-22-2022 RBC (Bld) [#/Vol] 5.35 10*6/uL 4.6-6.2 [facility] Work Phone: Blood hemoglobin measurement (mass/volume)on 05-22-2022 Hemoglobin (Bld) [Mass/Vol] 15.0 g/dL 13.0-16.5 [facility] Work Phone: [phone] Blood lymphocytes/100 leukoc yteson 05-22-2022 Lymphocytes/100 WBC (Bld) 9.5 % 19-41 [facility] Work Phone: Blood monocytes/100 leukocyt eson 05-22-2022 Monocytes/100 WBC (Bld) 3.3 % 0-10 [facility] Work Phone: Blood platelet mean volumeon 05-22-2022 Platelet mean volume (Bld) [Entitic vol] 11.5 fL 6.2-12.0 [facility] Work Phone: Determination of erythrocyte mean corpuscular volume (MCV)on 05-22-2022 MCV (RBC) [Entitic vol] 84.3 fL 80-94 [facility] Work Phone: Hematocrit Auto (Bld) [Volum e fraction]on 05-22-2022 Hematocrit (Bld) [Volume fraction] 45.1 % 40-54 [facility] Work Phone: Ketones Test strip Ql (U)on 05-22-2022 Ketones Ql (U) 150 mg/dl Negative [facility] Work Phone: Comment on above: CRITICAL VALUE *HCRI TICAL VALUE VERIFIED. CALLED TO STEFANO AGUILAR (ER)05/22/22 1133 Topher Win.RESULTS READ BACK BY SAME. Laboratory - Hematology and Cell countson 05-22-2022 Erythrocyte distribution width (RBC) [Entitic vol] 36.8 fL 35.1-43.9 [facility] Work Phone: Erythrocyte distribution width (RBC) [Ratio] 12.1 % 11.6-14.6 [facility] Work Phone: Immature granulocytes/100 WBC (Bld) 0.100 % 0.0-0.9 [facility] Work Phone: Comment on above: IG% - Immature Granu locytes (promyelocytes, myelocytes and metamyelocytes) > 1% indicates that a LEFT SHIFT is Present. MCH (RBC) [Entitic mass] 28.0 pg 27.0-32.0 [facility] Work Phone: Nucleated RBC/100 WBC (Bld) [Ratio] 0 % 0-5 [facility] Work Phone: MCHC Auto (RBC) [Mass/Vol]on 05-22-2022 MCHC (RBC) [Mass/Vol] 33.3 g/dL 32-36 [facility] Work Phone: Mucus LM Ql (Urine sed)on Mucus Ql (Urine sed) 0 SEEN /hpf [facility] Work Phone: Nitrite Test strip Ql (U)on 05-22-2022 Nitrite Ql (U) Negative Negative [facility] Work Phone: Platelets bldon 05-22-2022 Platelets (Bld) [#/Vol] 205 10*3/uL 150-450 [facility] Work Phone: Protein Test strip Ql (U)on 05-22-2022 Protein Ql (U) 15 mg/dl Negative [facility] Work Phone: Squamous epithelial cells de tection in urine sediment by light microscopyon 05-22-2022 Epithelial cells.squamous LM Ql (Urine sed) 0-5 SEEN /hpf 0-5 [facility] Work Phone: [phone] Urine blood detectionon RBC Ql (U) Negative Negative [facility] Work Phone: RBC Ql (U) 0 SEEN /hpf 0-5 [facility] Work Phone: Urine clarityon 05-22-2022 Clarity (U) Clear Clear [facility] Work Phone: Urine color determinationon 05-22-2022 Color (U) Yellow Yellow [facility] Work Phone: Urine glucose detectionon Glucose Ql (U) Normal mg/dl Normal [facility] Work Phone: Urine leukocyte esterase det ection by dipstickon 05-22-2022 Leukocyte esterase Test strip Ql (U) 25 /ul Negative [facility] Work Phone: Urine pHon 05-22-2022 pH (U) 5.0 [pH] 5.0 - 8.0 [facility] Work Phone: Urine sediment bacteria coun t by microscopy (number/high power field)on 05-22-2022 Bacteria LM.HPF (Urine sed) [#/Area] 0 /[HPF] None Seen [facility] Work Phone: Urine specific gravity measu rementon 05-22-2022 Specific gravity (U) [Rel density] 1.020 1.002-1.030 [facility] Work Phone: [phone] Urobilinogen Auto test strip Ql (U)on 05-22-2022 Urobilinogen Ql (U) Normal mg/dl Normal [facility] Work Phone: Absolute lymphocyte counton 05-21-2022 Lymphocytes Auto (Unsp spec) [#/Vol] 1.09 10*3/uL 0.83-4.51 [facility] Work Phone: Basophil percentageon 2021 Basophil percentage 0 SEEN /hpf 0-5 [facility] Work Phone: Basophils/100 WBC (Bld) 0.3 % 0-1 [facility] Work Phone: [phone] Bilirubin [Mass/Vol] 0.30 mg/dL 0.20-1.00 [facility] Work Phone: Comment on above: For patients on eltr ombopag therapy, use of Dimension [place] TBIL is not recommended. Chloride [Moles/Vol] 108 mmol/L 98-107 [facility] Work Phone: Eosinophils/100 WBC (Bld) 1.4 % 0-5 [facility] Work Phone: Glucose [Mass/Vol] 116 mg/dL 74-106 [facility] Work Phone: Comment on above: Fasting Glucose resu lt from 100 to 125 mg/dL suggests IMPAIRED HOMEOSTASIS per A.D.A. criteria. Neutrophils (Bld) [#/Vol] 10.3 10*3/uL 2.0-7.7 [facility] Work Phone: Neutrophils/100 WBC (Bld) 85.3 % 47-70 [facility] Work Phone: Potassium [Moles/Vol] 4.3 mmol/L 3.5-5.1 [facility] Work Phone: Protein [Mass/Vol] 6.9 g/dL 6.4-8.2 [facility] Work Phone: Sodium [Moles/Vol] 139 mmol/L 136-145 [facility] Work Phone: WBC (Bld) [#/Vol] 12.1 10*3/uL 4.4-11.0 [facility] Work Phone: Bilirubin Test strip Ql (U)o n 05-21-2022 Bilirubin Ql (U) Negative Negative [facility] Work Phone: Blood erythrocytes count (nu mber/volume)on 05-21-2022 RBC (Bld) [#/Vol] 5.60 10*6/uL 4.6-6.2 [facility] Work Phone: Blood hemoglobin measurement (mass/volume)on 05-21-2022 Hemoglobin (Bld) [Mass/Vol] 15.5 g/dL 13.0-16.5 [facility] Work Phone: Blood lymphocytes/100 leukoc yteson 05-21-2022 Lymphocytes/100 WBC (Bld) 9.0 % 19-41 [facility] Work Phone: Blood monocytes/100 leukocyt eson 05-21-2022 Monocytes/100 WBC (Bld) 3.8 % 0-10 [facility] Work Phone: Blood platelet mean volumeon 05-21-2022 Platelet mean volume (Bld) [Entitic vol] 10.9 fL 6.2-12.0 [facility] Work Phone: Determination of erythrocyte mean corpuscular volume (MCV)on 05-21-2022 MCV (RBC) [Entitic vol] 84.5 fL 80-94 [facility] Work Phone: Hematocrit Auto (Bld) [Volum e fraction]on 05-21-2022 Hematocrit (Bld) [Volume fraction] 47.3 % 40-54 [facility] Work Phone: Ketones Test strip Ql (U)on 05-21-2022 Ketones Ql (U) 5 mg/dl Negative [facility] Work Phone: Laboratory - Chemistry and C hemistry - challengeon 05-21-2022 ALP [Catalytic activity/Vol] 102 U/L 45-117 [facility] Work Phone: ALT [Catalytic activity/Vol] 13 U/L 16-61 [facility] Work Phone: CO2 [Moles/Vol] 27.0 mmol/L 21.0-32.0 [facility] Work Phone: [phone] Globulin (S) [Mass/Vol] 3.3 g/dL 2.2-4.2 [facility] Work Phone: Lipase [Catalytic activity/Vol] 58 U/L 73-393 [facility] Work Phone: Urea nitrogen/Creatinine [Mass ratio] 15.2 mg/mg 10-20 [facility] Work Phone: Laboratory - Hematology and Cell countson 05-21-2022 Erythrocyte distribution width (RBC) [Entitic vol] 37.5 fL 35.1-43.9 [facility] Work Phone: Erythrocyte distribution width (RBC) [Ratio] 12.4 % 11.6-14.6 [facility] Work Phone: [phone] Immature granulocytes/100 WBC (Bld) 0.200 % 0.0-0.9 [facility] Work Phone: Comment on above: IG% - Immature Granu locytes (promyelocytes, myelocytes and metamyelocytes) > 1% indicates that a LEFT SHIFT is Present. MCH (RBC) [Entitic mass] 27.7 pg 27.0-32.0 [facility] Work Phone: Nucleated RBC/100 WBC (Bld) [Ratio] 0 % 0-5 [facility] Work Phone: MCHC Auto (RBC) [Mass/Vol]on 05-21-2022 MCHC (RBC) [Mass/Vol] 32.8 g/dL 32-36 [facility] Work Phone: [phone] Mucus LM Ql (Urine sed)on Mucus Ql (Urine sed) 0 SEEN /hpf [facility] Work Phone: Nitrite Test strip Ql (U)on 05-21-2022 Nitrite Ql (U) Negative Negative [facility] Work Phone: No Panel Informationon 05-21 Estimated Creatinine Clearance Calc 103.58 ml/min [facility] Work Phone: Estimated GFR (MDRD) Amer 139 mL/min >60 [facility] Work Phone: Comment on above: GFR Calc Estimated GFR (MDRD) Non-Af Amer 115 mL/min >60 [facility] Work Phone: Comment on above: Non- GFR Calc Platelets bldon 05-21-2022 Platelets (Bld) [#/Vol] 215 10*3/uL 150-450 [facility] Work Phone: Protein Test strip Ql (U)on 05-21-2022 Protein Ql (U) 15 mg/dl Negative [facility] Work Phone: Serum or plasma albumin cristina urement (mass/volume)on 05-21-2022 Albumin [Mass/Vol] 3.6 g/dL 3.2-5.0 [facility] Work Phone: Serum or plasma albumin/glob ulin mass ratioon 05-21-2022 Albumin/Globulin [Mass ratio] 1.1 {ratio} 0.9-2.4 [facility] Work Phone: Serum or plasma calcium cristina urement (mass/volume)on 05-21-2022 Calcium [Mass/Vol] 8.9 mg/dL 8.5-10.1 [facility] Work Phone: Serum or plasma creatinine m easurement (mass/volume)on 05-21-2022 Creatinine [Mass/Vol] 0.79 mg/dL 0.70-1.30 [facility] Work Phone: Comment on above: The validity of the calculated GFR & GFRAA in patients over 70 years has not been determined. Clinical correlation is essential. Serum or plasma urea nitroge n measurement (mass/volume)on 05-21-2022 Urea nitrogen [Mass/Vol] 12 mg/dL 7-18 [facility] Work Phone: Squamous epithelial cells de tection in urine sediment by light microscopyon 05-21-2022 Epithelial cells.squamous LM Ql (Urine sed) 0 SEEN /hpf 0-5 [facility] Work Phone: [phone] Thin prep Papanicolaou smear with manual screeningon 05-21-2022 Thin prep Papanicolaou smear with manual screening 10 U/L 15-37 [facility] Work Phone: Thin prep Papanicolaou smear with manual screening 4 5-15 [facility] Work Phone: Urine blood detectionon RBC Ql (U) Negative Negative [facility] Work Phone: RBC Ql (U) 0 SEEN /hpf 0-5 [facility] Work Phone: Urine clarityon 05-21-2022 Clarity (U) Clear Clear [facility] Work Phone: Urine color determinationon 05-21-2022 Color (U) Yellow Yellow [facility] Work Phone: Urine glucose detectionon Glucose Ql (U) Normal mg/dl Normal [facility] Work Phone: Urine leukocyte esterase det ection by dipstickon 05-21-2022 Leukocyte esterase Test strip Ql (U) Negative Negative [facility] Work Phone: Urine pHon 05-21-2022 pH (U) 6.0 [pH] 5.0 - 8.0 [facility] Work Phone: Urine sediment bacteria coun t by microscopy (number/high power field)on 05-21-2022 Bacteria LM.HPF (Urine sed) [#/Area] 0 /[HPF] None Seen [facility] Work Phone: Urine specific gravity measu rementon 05-21-2022 Specific gravity (U) [Rel density] 1.020 1.002-1.030 [facility] Work Phone: Urobilinogen Auto test strip Ql (U)on 05-21-2022 Urobilinogen Ql (U) Normal mg/dl Normal [facility] Work Phone: Bilirub Conj SerPl-mCncon Bilirubin.conjugated [Mass/Vol] mg/dL Normal <0.2 [facility] Comment on above: Order Comment: Speci men Type: BLOOD SPECIMEN Ordering Facility: [facility] Address: [address] [place] [address] Performed By: #### 3 016-3, 22246-6, 86924-9 #### [facility] CLIA [id number] [address] [place] [address] [place] CBC W Auto Differential pane l (Bld)on 03-17-2022 Basophils (Bld) [#/Vol] 0.13 10*3/uL High <0.11 [facility] Comment on above: Order Comment: Speci men Type: BLOOD SPECIMEN Ordering Facility: [facility] Address: [address] [place] [address] Performed By: #### 5 7021-8 #### [facility] CLIA [id number] [address] [place] [address] [place] Basophils/100 WBC (Bld) 0.7 % Normal [facility] Comment on above: Order Comment: Speci men Type: BLOOD SPECIMEN Ordering Facility: [facility] Address: [address] [place] [address] Performed By: #### 5 7021-8 #### [facility] CLIA [id number] [address] [place] [address] [place] Differential cell count method Nom (Bld) Auto Normal [facility] Comment on above: Order Comment: Speci men Type: BLOOD SPECIMEN Ordering Facility: [facility] Address: [address] [place] [address] Performed By: #### 5 7021-8 #### [facility] CLIA [id number] [address] [place] [id number] [place] Eosinophils (Bld) [#/Vol] 0.12 10*3/uL Normal <0.46 [facility] Comment on above: Order Comment: Speci men Type: BLOOD SPECIMEN Ordering Facility: [facility] Address: [address] [place] [address] Performed By: #### 5 7021-8 #### [facility] CLIA [id number] [address] [place] [id number] [place] Eosinophils/100 WBC (Bld) 0.7 % Normal [facility] Comment on above: Order Comment: Speci men Type: BLOOD SPECIMEN Ordering Facility: [facility] Address: [address] [place] [address] Performed By: #### 5 7021-8 #### [facility] CLIA [id number] [address] [place] [address] [place] Erythrocyte distribution width (RBC) [Ratio] 12.3 % Normal 11.5-15.0 [facility] Comment on above: Order Comment: Speci men Type: BLOOD SPECIMEN Ordering Facility: [facility] Address: [address] [place] [address] Performed By: #### 5 7021-8 #### [facility] CLIA [id number] [address] [place], [place] [address] [place] Hematocrit (Bld) [Volume fraction] 52.0 % High 39.0-51.0 [facility] Comment on above: Order Comment: Speci men Type: BLOOD SPECIMEN Ordering Facility: [facility] Address: [address] [place] [address] Performed By: #### 5 7021-8 #### [facility] CLIA [id number] [address] [place], [place] [address] [place] Hemoglobin (Bld) [Mass/Vol] 16.9 g/dL Normal 13.0-17.0 [facility] Comment on above: Order Comment: Speci men Type: BLOOD SPECIMEN Ordering Facility: [facility] Address: [address] [place] [address] Performed By: #### 5 7021-8 #### [facility] CLIA [id number] [address] [place] [address] [place] IMMATURE GRAN % 0.5 % Normal [facility] Comment on above: Order Comment: Speci men Type: BLOOD SPECIMEN Ordering Facility: [facility] Address: [address] [place] [address] Performed By: #### 5 7021-8 #### [facility] CLIA [id number] [address] [place] [address] [place] IMMATURE GRAN ABS 0.08 k/uL Normal <0.10 [facility] Comment on above: Order Comment: Speci men Type: BLOOD SPECIMEN Ordering Facility: [facility] Address: [address] [place] [address] Performed By: #### 5 7021-8 #### [facility] CLIA [id number] [address] [place] [address] [place] Lymphocytes (Bld) [#/Vol] 1.37 10*3/uL Normal 1.00-4.00 [facility] Comment on above: Order Comment: Speci men Type: BLOOD SPECIMEN Ordering Facility: [facility] Address: [address] [place] [address] Performed By: #### 5 7021-8 #### [facility] CLIA [id number] [address] [place] [address] [place] Lymphocytes/100 WBC (Bld) 7.9 % Normal [facility] Comment on above: Order Comment: Speci men Type: BLOOD SPECIMEN Ordering Facility: [facility] Address: [address] [place] [address] Performed By: #### 5 7021-8 #### [facility] CLIA [id number] [address] [place], [place] [address] [place] MCH (RBC) [Entitic mass] 27.6 pg Normal 26.0-34.0 [facility] Comment on above: Order Comment: Speci men Type: BLOOD SPECIMEN Ordering Facility: [facility] Address: [address] [place] [address] Performed By: #### 5 7021-8 #### [facility] CLIA [id number] [address] [place] [address] [place] MCHC (RBC) [Mass/Vol] 32.5 g/dL Normal 30.5-36.0 [facility] Comment on above: Order Comment: Speci men Type: BLOOD SPECIMEN Ordering Facility: [facility] Address: [address] [place] [address] Performed By: #### 5 7021-8 #### [facility] CLIA [id number] [address] [place] [address] [place] MCV (RBC) [Entitic vol] 84.8 fL Normal 80.0-100.0 [facility] Comment on above: Order Comment: Speci men Type: BLOOD SPECIMEN Ordering Facility: [facility] Address: [address] [place] [address] Performed By: #### 5 7021-8 #### [facility] CLIA [id number] [address] [place] [address] [place] Monocytes (Bld) [#/Vol] 1.31 10*3/uL High <0.87 [facility] Comment on above: Order Comment: Speci men Type: BLOOD SPECIMEN Ordering Facility: [facility] Address: [address] [place] [address] Performed By: #### 5 7021-8 #### [facility] CLIA [id number] [address] [place] [address] [place] Monocytes/100 WBC (Bld) 7.5 % Normal [facility] Comment on above: Order Comment: Speci men Type: BLOOD SPECIMEN Ordering Facility: [facility] Address: [address] [place] [address] Performed By: #### 5 7021-8 #### [facility] CLIA [id number] [address] [address] [place] Neutrophils (Bld) [#/Vol] 14.35 10*3/uL High 1.45-7.50 [facility] Comment on above: Order Comment: Speci men Type: BLOOD SPECIMEN Ordering Facility: [facility] Address: [address] [place] [address] Performed By: #### 5 7021-8 #### [facility] CLIA [id number] [address] [address] [place] Neutrophils/100 WBC (Bld) 82.7 % Normal [facility] Comment on above: Order Comment: Speci men Type: BLOOD SPECIMEN Ordering Facility: [facility] Address: [address] [place] [address] Performed By: #### 5 7021-8 #### [facility] CLIA [id number] [address] [place] [address] [place] Nucleated RBC (Bld) [#/Vol] 10*3/uL Normal <0.01 [facility] Comment on above: Order Comment: Speci men Type: BLOOD SPECIMEN Ordering Facility: [facility] Address: [address] [place] [address] Performed By: #### 5 7021-8 #### [facility] CLIA [id number] [address] [place] [place] [id number] [place] Nucleated RBC/100 WBC (Bld) [Ratio] 0.0 /100 WBC Normal [facility] Comment on above: Order Comment: Speci men Type: BLOOD SPECIMEN Ordering Facility: [facility] Address: [address] [place] [address] Performed By: #### 5 7021-8 #### [facility] CLIA [id number] [address] [place] [address] [place] Platelet mean volume (Bld) [Entitic vol] 11.9 fL Normal 9.0-12.7 [facility] Comment on above: Order Comment: Speci men Type: BLOOD SPECIMEN Ordering Facility: [facility] Address: [address] [place] [address] Performed By: #### 5 7021-8 #### [facility] CLIA [id number] [address] [place] [address] [place] Platelets (Bld) [#/Vol] 201 10*3/uL Normal 150-400 [facility] Comment on above: Order Comment: Speci men Type: BLOOD SPECIMEN Ordering Facility: [facility] Address: [address] [place] [address] Result Comment: No c lot detected Performed By: #### 5 7021-8 #### [facility] CLIA [id number] [address] [place] [address] [place] RBC (Bld) [#/Vol] 6.13 10*6/uL High 4.20-6.00 [facility] Comment on above: Order Comment: Speci men Type: BLOOD SPECIMEN Ordering Facility: [facility] Address: [address] [place] [address] Performed By: #### 5 7021-8 #### [facility] CLIA [id number] [address] [place] [address] [place] WBC (Bld) [#/Vol] 17.36 10*3/uL High 3.70-11.00 [facility] Comment on above: Order Comment: Speci men Type: BLOOD SPECIMEN Ordering Facility: [facility] Address: [address] [place] [address] Performed By: #### 5 7021-8 #### [facility] CLIA [id number] [address] [place], [place] [address] [place] Comprehensive metabolic 2000 panelon 03-17-2022 Albumin [Mass/Vol] 4.8 g/dL Normal 3.9-4.9 [facility] Comment on above: Order Comment: Speci men Type: BLOOD SPECIMEN Ordering Facility: [facility] Address: [address] [place] [address] Performed By: #### 3 016-3, 79481-8, 43968-0 #### [facility] CLIA [id number] [address] [address] [place] ALP [Catalytic activity/Vol] 127 U/L High 38-113 [facility] Comment on above: Order Comment: Speci men Type: BLOOD SPECIMEN Ordering Facility: [facility] Address: [address] [place] [address] Performed By: #### 3 016-3, 78033-2, 17339-2 #### [facility] CLIA [id number] [address] [place] [id number] [place] ALT [Catalytic activity/Vol] 13 U/L Normal 10-54 [facility] Comment on above: Order Comment: Speci men Type: BLOOD SPECIMEN Ordering Facility: [facility] Address: [address] [place] [address] Performed By: #### 3 016-3, , 25171-7 #### [facility] CLIA [id number] [address] [address] [place] Anion gap [Moles/Vol] 11 mmol/L Normal 9-18 [facility] Comment on above: Order Comment: Speci men Type: BLOOD SPECIMEN Ordering Facility: [facility] Address: [address] [place] [address] Performed By: #### 3 016-3, , 79289-5 #### [facility] CLIA [id number] [address] [address] [place] AST [Catalytic activity/Vol] 15 U/L Normal 14-40 [facility] Comment on above: Order Comment: Speci men Type: BLOOD SPECIMEN Ordering Facility: [facility] Address: [address] [place] [address] Performed By: #### 3 016-3, 26434-2, 95778-8 #### [facility] CLIA [id number] [address] [address] [place] Bilirubin [Mass/Vol] 0.5 mg/dL Normal 0.2-1.3 [facility] Comment on above: Order Comment: Speci men Type: BLOOD SPECIMEN Ordering Facility: [facility] Address: [address] [place], [place] [address] Performed By: #### 3 016-3, 06096-8, 84712-8 #### [facility] CLIA [id number] [address] [place] [address] [place] Calcium [Mass/Vol] 9.2 mg/dL Normal 8.5-10.2 [facility] Comment on above: Order Comment: Speci men Type: BLOOD SPECIMEN Ordering Facility: [facility] Address: [address] [place], [place] [address] Performed By: #### 3 016-3, 39938-8, 82984-1 #### [facility] CLIA [id number] [address] [place] [address] [place] Chloride [Moles/Vol] 97 mmol/L Normal 97-105 [facility] Comment on above: Order Comment: Speci men Type: BLOOD SPECIMEN Ordering Facility: [facility] Address: [address] [place] [address] Performed By: #### 3 016-3, 33798-4, 92581-0 #### [facility] CLIA [id number] [address] [place] [id number] [place] CO2 [Moles/Vol] 27 mmol/L Normal 22-30 [facility] Comment on above: Order Comment: Speci men Type: BLOOD SPECIMEN Ordering Facility: [facility] Address: [address] [place] [address] Performed By: #### 3 016-3, 21214-8, 07044-5 #### [facility] CLIA [id number] [address] [place] [address] [place] Creatinine [Mass/Vol] 0.72 mg/dL Low 0.73-1.22 [facility] Comment on above: Order Comment: Leilani noland Type: BLOOD SPECIMEN Ordering Facility: [facility] Address: [address] [place], [place] [address] Performed By: #### 3 016-3, 88378-5, 56979-9 #### [facility] CLIA [id number] [address] [place] [address] [place] ESTIMATED GLOMERULAR FILTRATION RATE 118 mL/min/1.73m??? Normal >=60 [facility] Comment on above: Order Comment: Leilani noland Type: BLOOD SPECIMEN Ordering Facility: [facility] Address: [address] [place], [place] [address] Result Comment: Trent mated Glomerular Filtration Rate [...] actual GFR. Performed By: #### 3 016-3, 41862-1, 77313-2 #### [facility] CLIA [id number] [address] [place] [address] [place] Glucose [Mass/Vol] 142 mg/dL High 74-99 [facility] Comment on above: Order Comment: Leilani nloand Type: BLOOD SPECIMEN Ordering Facility: [facility] Address: [address] [place] [address] Result Comment: The [place] Diabetes Association (ADA) provides guidance for cutoff [...] Standards of Medical Care in Diabetes 2016, [place] [employer]. Diabetes Care. 2016.39(Suppl 1). Performed By: #### 3 016-3, 72059-7, 14318-9 #### [facility] CLIA [id number] [address] [place] [address] [place] Potassium [Moles/Vol] 3.9 mmol/L Normal 3.7-5.1 [facility] Comment on above: Order Comment: Speci men Type: BLOOD SPECIMEN Ordering Facility: [facility] Address: [address] [place] [address] Performed By: #### 3 016-3, 57136-1, 20471-4 #### [facility] CLIA [id number] [address] [place] [address] [place] Protein [Mass/Vol] 7.3 g/dL Normal 6.3-8.0 [facility] Comment on above: Order Comment: Speci men Type: BLOOD SPECIMEN Ordering Facility: [facility] Address: [address] [place] [address] Performed By: #### 3 016-3, 52258-9, 09380-9 #### [facility] CLIA [id number] [address] [place] [address] [place] Sodium [Moles/Vol] 135 mmol/L Low 136-144 [facility] Comment on above: Order Comment: Speci men Type: BLOOD SPECIMEN Ordering Facility: [facility] Address: [address] [place] [address] Performed By: #### 3 016-3, 50737-3, 58122-4 #### [facility] CLIA [id number] [address] [place] [address] [place] Urea nitrogen [Mass/Vol] 10 mg/dL Normal 9-24 [facility] Comment on above: Order Comment: Speci men Type: BLOOD SPECIMEN Ordering Facility: [facility] Address: [address] [place] [address] Performed By: #### 3 016-3, 35717-7, 71373-4 #### [facility] CLIA [id number] [address] [place] [address] [place] HAV IgM Ser Qlon 03-17-2022 HAV IgM Ql (S) Negative Normal Negative [facility] Comment on above: Order Comment: Leilani ludin Type: BLOOD SPECIMEN Ordering Facility: [facility] Address: [address] [place] [address] Result Comment: No e vidence of recent infection with Hepatitis A virus. Performed By: #### 1 1011-4 #### [facility] CLIA [id number] [address] [place] [address] [place] HBV core IgM Ser Qlon 2021 HBV core IgM Ql (S) Negative Normal Negative [facility] Comment on above: Order Comment: Leilani ludin Type: BLOOD SPECIMEN Ordering Facility: [facility] Address: [address] [place] [address] Result Comment: No e vidence of recent infection with Hepatitis B virus. Should recent infection be suspected, repeat testing may be considered 3-4 weeks after this draw. Performed By: #### 1 0900-9, MICRO, HIV12M, 70179-7, 69564-2 #### [facility] CLIA [id number] [address] [place] [address] [place] HBV surface Ab IA Ql (S)on 0 03-17-2022 HBV surface Ag Ql (S) Negative Normal Negative [facility] Comment on above: Order Comment: Jovannyjacques noland Type: BLOOD SPECIMEN Ordering Facility: [facility] Address: [address] [place] [address] Performed By: #### 1 0900-9, MICRO, HIV12M, 80323-7, 56706-7 #### [facility] CLIA [id number] [address] [place] [address] [place] HCV Ab Ser Qlon 03-17-2022 HCV Ab Ql (S) Positive Abnormal Negative [facility] Comment on above: Order Comment: Leilani noland Type: BLOOD SPECIMEN Ordering Facility: [facility] Address: [address] [place] [address] Result Comment: Conf irmation with Hepatitis C RNA has been ordered and charged. Performed By: #### 1 6128-1, 63414-4 #### [facility] CLIA [id number] [address] [place] [address] [place] HCV RNA SerPl MEME+probe-aCnc on 03-17-2022 HCV RNA MEME+probe Qn Not detected Normal HCV RNA not detected by PCR. [facility] Comment on above: Order Comment: Leilani noland Type: BLOOD SPECIMEN Ordering Facility: [facility] Address: [address] [place], [place] [address] Performed By: #### 1 6128-1, 05227-5 #### [facility] CLIA [id number] [address] [place] [address] [place] HCV RNA MEME+probe Qn Not detected Normal HCV RNA not detected by PCR. [facility] Comment on above: Order Comment: Leilani noland Type: BLOOD SPECIMEN Ordering Facility: [facility] Address: [address] [place], [place] [address] Performed By: #### 1 1011-4 #### [facility] CLIA [id number] [address] [place] [address] [place] HIV-1/2 AB CONFIRMATORYon HIV 1 and 2 Ab IA.rapid Nom Negative Normal Negative [facility] Comment on above: Order Comment: Leilani noland Type: BLOOD SPECIMEN Ordering Facility: [facility] Address: [address] [place] [address] Result Comment: The result suggests no evidence [...] to 3 weeks after this. HIV Information: [place] Rev. Code 3701.243(E): This information has been [...] diagnoses. Performed By: #### 1 1011-4 #### [facility] CLIA [id number] [address] [place] [address] [place] THYROID PEROXIDASE ANTIBODY BLOODon 03-17-2022 TPO Ab Qn [IU]/mL Normal <5.6 [facility] Comment on above: Order Comment: Speci men Type: BLOOD SPECIMEN Ordering Facility: [facility] Address: [address] [place] [address] Result Comment: Thyr oid Peroxidase Antibody test is used as an aid in diagnosis of autoimmune thyroid disease. Clinical correlation is required. Performed By: #### 1 1011-4 #### [facility] [place] [id number] [address] [place] [address] [place] TSH SerPl-aCncon 03-17-2022 TSH Qn 0.918 m[IU]/L Normal 0.270-4.200 [facility] Comment on above: Order Comment: Leilani noland Type: BLOOD SPECIMEN Ordering Facility: [facility] Address: [address] [place] [address] Performed By: #### 3 016-3, 62483-6, 76455-4 #### [facility] [place] [id number] [address] [place] [address] [place] CNPLinda 03-05-2022 [facility] JOSE MCNAMARA ([id number]) 1980 M Date Time Provider Department 03/05/22 [...] Date Reviewed: 03/04/2022 Reviewed by: Edward Powell APRN.[employer] MANAGER - Fully Assessed Reason for Visit: Results [...] Status:Closed by KLAUDIA MARTINEZ on 03/05/22 Normal [facility] CNOVon 03-04-2022 CNOV Office Visit ([facility] ) ----- JOSE MCNAMARA ([id number]) 1980 M Date Time Provider Department 03/04/22 11:15 AM EDWARD POWELL [facility] During your visit today, we recorded the following information about you: Temperature Pulse Respiration Blood pressure 98.6 degrees 77/minute 18/minute 102/74 Weight 62.9 kg Edward Powell APRN.MAJOR GIFTS MANAGER 03/04/2022 11:44 AM Signed Subjective HPI Nontoxic-appearing [...] drainage, sw (more content not included)... [facility] JOSE MCNAMARA ([id number]) 1980 M Date Time Provider Department 06/03/21 [...] (FLONASE) 50 mcg/actuation nasal spray Use 1 [place] in each nostril once daily. - propranolol [...] Panelon 05-2 Calcium 9.2 mg/dL Normal 8.4-10.2 [facility] Comment on above: Performed By: #### H EMDF, LFT3, BMP3, ETOH4 ####[id number] [place] [address] Glucose mass conc 71 mg/dL Normal 70-100 [facility] Comment on above: Performed By: #### H EMDF, LFT3, BMP3, ETOH4 ####[address] [place], [place] Urea nitrogen 12 mg/dL Normal 7-20 [facility] Comment on above: Performed By: #### H EMDF, LFT3, BMP3, ETOH4 ####[id number] [place], [place] Anion gap 13 Normal [facility] Comment on above: Performed By: #### H EMDF, LFT3, BMP3, ETOH4 ####[id number] [place], [place] CO2 24 mmol/L Normal 22-30 [facility] Comment on above: Performed By: #### H EMDF, LFT3, BMP3, ETOH4 ####[id number] [place], [place] Creatinine 0.75 mg/dL Normal 0.52-1.25 [facility] Comment on above: Performed By: #### H EMDF, LFT3, BMP3, ETOH4 ####[address] eGFR (black) mL/min/{1.73_m2} Normal >60 [facility] Comment on above: Performed By: #### H EMDF, LFT3, BMP3, ETOH4 ####[address] eGFR (non-black) mL/min/{1.73_m2} Normal >60 [facility] Comment on above: Result Comment: Sour ce- MDRD equation with creatinine calibration to IDMS(NKDEP) eGFR not recommended for drug dose adjustment Performed By: #### H EMDF, LFT3, BMP3, ETOH4 ####[id number] [place], [place] Chloride 102 mmol/L Normal 98-107 [facility] Comment on above: Performed By: #### H EMDF, LFT3, BMP3, ETOH4 ####[id number] [place], [place] Potassium molar conc 4.3 mmol/L Normal 3.5-5.1 [facility] Comment on above: Performed By: #### H EMDF, LFT3, BMP3, ETOH4 ####[facility] [facility] [address] Sodium 139 mmol/L Normal 137-145 [facility] Comment on above: Performed By: #### H EMDF, LFT3, BMP3, ETOH4 ####[id number] [place] [address] Drugs of Abuseon 04-11-2018 Opiates, Ur Positive Normal [facility] Comment on above: Performed By: #### D RGA4, THC4 ####[id number] [facility] [place] Phencyclidine (PCP), Ur Negative Normal [facility] Comment on above: Result Comment: [...] procedures. Performed By: #### Elaine MCDERMOTT, THC4 ####[id number] [facility] [place] Cocaine, Ur Negative Normal [facility] Comment on above: Performed By: #### Elaine MCDERMOTT, THC4 ####[id number] [facility] [place] [address] Methadone, Ur Negative Normal [facility] Comment on above: Performed By: #### Elaine MCDERMOTT, THC4 ####[id number] [facility] [place] [address] Amphetamines, Ur Negative Normal [facility] Comment on above: Performed By: #### Elaine [place]4, THC4 ####[id number] [facility] [place] [address] Benzodiazepines, Ur Negative Normal [facility] Comment on above: Performed By: #### Elaine MCDERMOTT, THC4 ####[address] Barbiturates, Ur Negative Normal [facility] Comment on above: Performed By: #### D SHARRON, THC4 ####[address] Oxycodone/Oxymorphine, Ur Negative Normal [facility] Comment on above: Performed By: #### D SHARRON, THC4 ####[address] Ethanol Serum/Plasmaon 04-11 Ethanol-Serum/Plasma < 0.010 Normal 0.000-0.010 [facility] Comment on above: Result Comment: NOTE : This result is for medical treatment only. Analysis performed using non-forensic procedures. Performed By: #### H EMDF, LFT3, BMP3, ETOH4 ####[address] Hemogram w/ Autodiffon 04-11 Abs Baso Cnt 0.1 10*3/uL Normal 0.0-0.2 [facility] Comment on above: Performed By: #### H EMDF, LFT3, BMP3, ETOH4 ####[address] Basophils/100 WBC Auto (Bld) 0.6 % Normal 0.0-2.0 [facility] Comment on above: Performed By: #### H EMDF, LFT3, BMP3, ETOH4 ####[address] Eosinophils 0.1 10*3/uL Normal 0.0-0.5 [facility] Comment on above: Performed By: #### H EMDF, LFT3, BMP3, ETOH4 ####[address] Eosinophils/100 leukocytes 0.5 % Low 1.0-6.0 [facility] Comment on above: Performed By: #### H EMDF, LFT3, BMP3, ETOH4 ####[address] Erythrocyte distribution width Auto Ratio (RBC) 13.1 % Normal 11.5-14.5 [facility] Comment on above: Performed By: #### H EMDF, LFT3, BMP3, ETOH4 ####[address] Erythrocytes (RBC) 5.79 10*6/uL Normal 4.40-5.90 [facility] Comment on above: Performed By: #### H EMDF, LFT3, BMP3, ETOH4 ####[address] Granulocytes/100 WBC (Bld) 78.4 % Normal 40.0-80.0 [facility] Comment on above: Performed By: #### H EMDF, LFT3, BMP3, ETOH4 ####[address] Hematocrit (HCT) 46.7 % Normal 40.0-52.0 [facility] Comment on above: Performed By: #### H EMDF, LFT3, BMP3, ETOH4 ####[address] Hemoglobin mass conc (Bld) 15.6 g/dL Normal 13.0-18.0 [facility] Comment on above: Performed By: #### H EMDF, LFT3, BMP3, ETOH4 ####[address] Lymphocytes 2.7 10*3/uL Normal 1.0-4.3 [facility] Comment on above: Performed By: #### H EMDF, LFT3, BMP3, ETOH4 ####[address] Lymphocytes/100 leukocytes 13.6 % Low 20.0-40.0 [facility] Comment on above: Performed By: #### H EMDF, LFT3, BMP3, ETOH4 ####[address] MCH 27.0 pg Normal 26.0-34.0 [facility] Comment on above: Performed By: #### H EMDF, LFT3, BMP3, ETOH4 ####[address] MCHC mass conc (RBC) 33.4 % Normal 32.0-36.0 [facility] Comment on above: Performed By: #### H EMDF, LFT3, BMP3, ETOH4 ####[address] MCV 80.7 fL Normal 80.0-98.0 [facility] Comment on above: Performed By: #### H EMDF, LFT3, BMP3, ETOH4 ####[address] Monocytes 1.4 10*3/uL High 0.0-0.8 [facility] Comment on above: Performed By: #### H EMDF, LFT3, BMP3, ETOH4 ####[address] Monocytes/100 leukocytes 6.9 % Normal 2.0-10.0 [facility] Comment on above: Performed By: #### H EMDF, LFT3, BMP3, ETOH4 ####[address] Neutrophils 15.4 10*3/uL High 1.8-7.0 [facility] Comment on above: Performed By: #### H EMDF, LFT3, BMP3, ETOH4 ####[address] Platelet mean volume (PMV) 9.4 fL Normal 7.4-10.4 [facility] Comment on above: Performed By: #### H EMDF, LFT3, BMP3, ETOH4 ####[address] Platelets 252 10*3/uL Normal 140-440 [facility] Comment on above: Performed By: #### H EMDF, LFT3, BMP3, ETOH4 ####[id number] [place], [place] WBC (Leukocytes) 19.7 10*3/uL High 3.6-10.7 [facility] Comment on above: Performed By: #### H EMDF, LFT3, BMP3, ETOH4 ####[address] Hepatic Functionon 8 Alanine aminotransferase (ALT) 43 U/L Normal 13-69 [facility] Comment on above: Performed By: #### H EMDF, LFT3, BMP3, ETOH4 ####[address] Alkaline phosphatase (ALP) 70 U/L Normal 38-126 [facility] Comment on above: Performed By: #### H EMDF, LFT3, BMP3, ETOH4 ####[address] Aspartate aminotransferase (AST) 21 U/L Normal 15-46 [facility] Comment on above: Performed By: #### H EMDF, LFT3, BMP3,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 [facility]-Surgical Day Care Start: 09-29-2023 End: 09-29-2023 ambulatory No Primary Care Physician [facility] Work Phone: Start: 09-11-2023 End: 09-15-2023 ambulatory YNES Kassidy [facility] Start: 09-11-2023 End: 09-11-2023 Office outpatient visit 25 minutes Polly Aviles DO Work Phone: [facility] Comment on above: Sjogren's syndrome w ith keratoconjunctivitis sicca (HCC) (Primary Dx); Polyarthralgia; Celiac disease; Encounter for screening for other viral diseases; Crohn's disease of colon with complication (HCC); Abnormal CT of the chest Start: 09-01-2023 End: 09-01-2023 Patient encounter procedure No Primary Care Physician [facility] Work Phone: Start: 08-28-2023 End: 08-28-2023 ambulatory No Primary Care Physician [facility] Work Phone: Start: 08-28-2023 End: 08-28-2023 Patient encounter procedure No Primary Care Physician [facility]-Radiology, [facility] Work Phone: Start: 08-28-2023 End: 08-28-2023 Patient encounter procedure No Primary Care Physician [facility] Work Phone: Start: 08-18-2023 End: 08-18-2023 Patient encounter procedure No Primary Care Physician [facility]-Cat Scan, [facility] Work Phone: Start: 08-13-2023 End: 08-13-2023 Patient encounter procedure No Primary Care Physician [facility]-Cat Scan, [facility] Work Phone: Start: 08-12-2023 Documentation procedure Jessica Jordan LPN [facility] Start: 07-30-2023 End: 08-03-2023 ambulatory POLLY AVILES [facility] Start: 07-30-2023 End: 07-30-2023 Office outpatient new 60 minutes Polly Aviles DO Work Phone: [facility] Comment on above: Sjogren's syndrome, with unspecified organ involvement (HCC) (Primary Dx); Crohn's disease with complication, unspecified gastrointestinal tract location (HCC); Polyarthralgia; Shortness of breath; Dysphagia, unspecified type Start: 07-24-2023 Non-patient / Non-visit No Margaret lyons [facility] Physician [facility] Start: 07-23-2023 End: 07-23-2023 ambulatory No Primary Care Physician [facility] Work Phone: Start: 07-23-2023 End: 07-23-2023 Patient encounter procedure No Primary Care Physician [facility]-Pulmonary Services/Neurology Work Phone: Start: 07-08-2023 Non-patient / Non-visit No Margaret lyons [facility] Physician [facility] Start: 07-08-2023 End: 07-08-2023 Patient encounter procedure No Primary Care Physician [facility]-Cardiovascular Services Work Phone: Start: 06-17-2023 End: 06-17-2023 ambulatory No Primary Care Physician [facility] Work Phone: Start: 06-17-2023 End: 06-17-2023 Patient encounter procedure No Primary Care Physician [facility]-Laboratory, [facility] Start: 06-17-2023 End: 06-17-2023 Patient encounter procedure No Primary Care Physician [facility] Work Phone: Start: 06-11-2023 Telephone encounter Apryl castaneda MD Work Phone: [facility] Rheumatology Comment on above: Advice Only Start: 04-20-2023 End: 04-20-2023 Patient encounter procedure No Primary Care Physician [facility] Work Phone: Start: 03-27-2023 End: 03-27-2023 Patient encounter procedure No Primary Care Physician [facility]-Laboratory Work Phone: Start: 03-03-2023 End: 03-03-2023 ambulatory No Primary Care Physician [facility] Work Phone: Start: 03-03-2023 End: 03-03-2023 Patient encounter procedure No Primary Care Physician [facility] Start: 12-23-2022 End: 12-23-2022 Patient encounter procedure No Primary Care Physician [facility] Gastroenterology Start: 11-27-2022 End: 11-27-2022 ambulatory [facility] Work Phone: [facility] Work Phone: Start: 11-27-2022 End: 11-27-2022 Patient encounter procedure [facility] Work Phone: [facility]-Laboratory Start: 11-13-2022 End: 11-13-2022 ambulatory [facility] Work Phone: [facility] Work Phone: Start: 11-13-2022 End: 11-13-2022 Patient encounter procedure [facility] Work Phone: [facility]-Laboratory Start: 11-07-2022 Telephone encounter Reinaldoiris mcmahan PA-C Work Phone: [facility] Comment on above: Results Start: 11-06-2022 End: 11-06-2022 ambulatory SILVIA NUNEZ Facility:[facility] Start: 11-06-2022 End: 11-06-2022 Office outpatient visit 15 minutes Edward Powell APRN.CNP Work Phone: [facility] Comment on above: Viral illness (Prima ry Dx) Start: 10-10-2022 End: 10-10-2022 Patient encounter procedure [facility] Work Phone: [facility] Start: 09-26-2022 End: 09-26-2022 Patient encounter procedure [facility] Work Phone: [facility] Start: 09-11-2022 End: 09-11-2022 Patient encounter procedure [facility] Work Phone: [facility] Start: 09-11-2022 Non-patient / Non-visit [facility] Work Phone: [facility] Start: 09-11-2022 End: 09-11-2022 Admission to same day surgery center [facility] Work Phone: [facility]-Endoscopy Start: 08-26-2022 End: 08-26-2022 Patient encounter procedure [facility] Work Phone: [facility] Start: 08-14-2022 End: 08-15-2022 ambulatory [facility] Start: 08-05-2022 End: 08-05-2022 Patient encounter procedure [facility] Work Phone: [facility]-Laboratory, Specimen Start: 07-15-2022 End: 07-15-2022 ambulatory [facility] Work Phone: [facility] Work Phone: Start: 07-15-2022 End: 07-15-2022 Patient encounter procedure [facility] Work Phone: [facility] Start: 05-22-2022 End: 05-22-2022 Emergency department patient visit [facility] Work Phone: [facility]-Emergency Department Start: 05-21-2022 End: 05-21-2022 Emergency department patient visit [facility] Work Phone: [facility]-Emergency Department Start: 03-19-2022 End: 03-19-2022 Patient encounter procedure [facility] Work Phone: [facility] Start: 03-17-2022 End: 03-17-2022 [facility] Start: 03-11-2022 End: 03-11-2022 Patient encounter procedure [facility] Work Phone: [facility] Start: 03-05-2022 Telephone encounter Reinaldo CoyC Work Phone: [facility] Comment on above: Results Start: 03-04-2022 End: 03-04-2022 ambulatory EDWARD POWELL Facility:[facility] Start: 03-04-2022 End: 03-04-2022 ambulatory SILVIA NUNEZ Facility:[facility] Start: 03-04-2022 End: 03-04-2022 Patient encounter procedure [facility] 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 Josselyn Galindo MD Work Phone: Start: 06-03-2025 X-ray of chest, PA a nd lateral views Dr. Josselyn Glaindo MD Work Phone: Start: 06-03-2025 SARS-CoV-2, Influenz [...] of abdomen and pelvis with intravenous contrast [facility] Work Phone: Start: 03-11-2022 X-ray of eye for foreign body [facility] Work Phone: Start: 03-11-2022 MRI of cervical spine V [facility] Work Phone: Start: 02-21-2022 X-ray of cervical spine [facility] Work Phone: Start: 11-22-2021 CT cervical spine wi thout contrast [facility] Work Phone: Start: 11-22-2021 Plain chest X-ray [facility] Work Phone: Lactoferrin measurement [facility] Work Phone: Plan of Treatment Date Care Activity Detail Author Start: 2031 Zoster Vaccines (1 of 2) Zoste r Vaccines (1 of 2) [facility] Start: 05-27-2026 Diabetes mellitus screening Diabetes Screening [facility] Start: 07-17-2025 Influenza vaccination [facility] Start: 06-03-2025 Hepatic function panel [facility] Start: 06-03-2025 End: 06-03-2025 [facility] Start: 06-03-2025 Bacteria identified in Blood by Culture Blood Culture [facility] Start: 06-03-2025 Bacteria identified in Urine by Culture Urine Culture [facility] Start: 11-03-2024 End: 11-03-2024 Patient encounter procedure 11/03/2024 10:30 AM EST Office Visit [facility] Medicine [address] [place] [address] [place] [address] Polly Aviles DO [address] [place] [phone] [facility] Start: 07-17-2024 COVID-19 Vaccine ( season) COVID-19 Vaccine ( season) [facility] Start: 07-17-2024 COVID-19 Vaccine ( season) COVID-19 Vaccine ( season) [facility] Start: 07-17-2024 Influenza vaccination Influenza Vacc ine (#1) [facility] Start: 05-17-2024 End: 05-17-2024 Patient encounter procedure 05/17/2024 10:15 AM EDT Office Visit [facility] [address] [place] [address] [place] [id number] Polly Aviles DO [address] [place] [address] [id number] [facility] Start: 03-08-2024 Patient discharge [facility] Start: 01-11-2024 Measurement of substance [facility] Start: 12-21-2023 [facility] Start: 11-26-2023 End: 11-26-2023 Patient encounter procedure 11/26/2023 10:30 AM EST Office Visit [facility] Medicine [address] [place] [address] [place] [phone] Polly Aviles DO [address] [place] [id number] [facility] Start: 09-29-2023 Anes esoph thyrd lar ynx trach & lymph neck 1yr ANESTH NECK ORGAN 1YR/> [facility] Start: 09-29-2023 Laryngoscopy w/biops y microscope/telescope LARYNGOSCOPY W/BX & OP SCOPE [facility] Start: 09-29-2023 Patient discharge [facility] Start: 09-01-2023 Patient referral [facility] Work Phone: Start: 08-13-2023 End: 08-13-2023 Patient encounter procedure 08/13/2023 10:00 AM EDT Office Visit [facility] [address] [place] [address] [place] [address] Polly Aviles DO [address] [place] [id number] [facility] Start: 07-17-2023 Influenza vaccination [facility] Start: 09-11-2022 Colonoscopy w/biopsy single/multiple COLONOSCOPY AND BIOPSY [facility] Start: 09-11-2022 Egd transoral biopsy single/multiple EGD BIOPSY SINGLE/MULTIPLE [facility] Start: 09-11-2022 Patient discharge [facility] Start: 07-17-2022 Influenza vaccination [facility] Start: 07-15-2022 Nfct agnt genotyp nu cleic acid hepatitis c virus GENOTYPE DNA/RNA HEP C [facility] Work Phone: Start: 03-19-2022 Patient referral [facility] Work Phone: Start: 11-16-2021 DEPRESSION ASSESSMENT DEPRESSION ASS ESSMENT [facility] Start: 2016 LIPID SCREEN LIPID SCREEN [facility] Start: 2003 DTaP/Tdap/Td Vaccine s (1 - Tdap) DTaP/Tdap/Td Vaccines (1 - Tdap) [facility] Start: 2000 DTaP/Tdap/Td Vaccine s (1 - Tdap) DTaP/Tdap/Td Vaccines (1 - Tdap) [facility] Start: 2000 Hepatitis A Vaccines (1 of 2 - Risk 2-dose series) Hepatitis A Vaccines (1 of 2 - Risk 2-dose series) [facility] Start: 2000 Hepatitis B Vaccines (1 of 3 - 19+ 3-dose series) Hepatitis B Vaccines (1 of 3 - 19+ 3-dose series) [facility] Start: 2000 Pneumococcal Vaccine : Ped or At-Risk (1 of 2 - PCV) Pneumococcal Vaccine: Ped or At-Risk (1 of 2 - PCV) [facility] Start: 2000 Urine microalbumin profile DTAP,TDAP ,TD (1 - Tdap) [facility] Start: 1999 HEPATITIS C SCREENING HEPATITIS C [facility] Start: 1999 Hepatitis C screening Hepatitis C [facility] Start: 1999 HIV SCREENING HIV SCREENING [facility] Start: 1996 HIV screening HIV Screening [facility] Start: 1994 Varicella vaccination Varicell a Vaccines (1 of 2 - 13+ 2-dose series) [facility] Start: 1993 Adult depression scr eening assessment [facility] Start: 1987 PNEUMOCOCCAL (1 - PCV) PNEUMOCOCCAL (1 - PCV) [facility] Start: 1987 Pneumococcal Vaccine : Ped or At-Risk (1 - PCV) Pneumococcal Vaccine: Ped or At-Risk (1 - PCV) [facility] Start: 1987 Pneumococcal Vaccine : Ped or At-Risk (1 of 2 - PCV) Pneumococcal Vaccine: Ped or At-Risk (1 of 2 - PCV) [facility] Start: 1987 Pneumococcal Vaccine : Pediatrics (0 to 5 Years) and At-Risk Patients (6 to 64 Years) (1 - PCV) Pneumococcal Vaccine: Pediatrics (0 to 5 Years) and At-Risk Patients (6 to 64 Years) (1 - PCV) [facility] Start: 1986 COVID-19 Vaccine (#1) COVID-19 Vacci ne (#1) [facility] Start: 1986 COVID-19 VACCINE (1) COVID-19 VACCIN E (1) [facility] Start: 1984 History and physical examination, annual for health maintenance Wellness Visit [facility] Start: 1982 MMR Vaccines (1 of 1 - Standard series) MMR Vaccines (1 of 1 - Standard series) [facility] Start: 1982 Varicella vaccination Varicell a Vaccines (1 of 2 - 2-dose childhood series) [facility] Start: 1981 COVID-19 VACCINE (#1) COVID-19 VACCI NE (#1) [facility] Start: 1981 HEPATITIS B (1 of 3 - 3-dose series) HEPATITIS B (1 of 3 - 3-dose series) [facility] Start: 1981 Hepatitis B Vaccines (1 of 3 - 3-dose series) Hepatitis B Vaccines (1 of 3 - 3-dose series) [facility] Start: 1981 HIV screening HIV Screening [facility] Start: 1981 Lipid panel Lipid Panel [facility] Start: 1981 Tetanus vaccination Tetanus: Every 1 0yrs [facility] Start: 1981 Yearly Adult Physical Yearly Adult P [facility] Alanine aminotransfe rase [Enzymatic activity/volume] in Serum or Plasma [facility] Albumin [Mass/volume ] in Serum or Plasma [facility] Alkaline phosphatase [Enzymatic activity/volume] in Serum or Plasma [facility] Amphetamines [Presen ce] in Urine by Screen method >1000 ng/mL [facility] End: 07-30-2024 Anti-cyclic citrullinated peptide antibody level [facility] Antibody Lab Add-On Polyarthralgia 1 Occurrences starting 07/30/2023 until 07/30/2024 [facility] Comment on above: 1 Occurrences starti ng 07/30/2023 until 07/30/2024 Anti-cyclic citrulli nated peptide antibody level [facility] Antibody Lab Add-On Polyarthralgia 07/30/2023 9:57 AM EDT [facility] End: 07-30-2024 Antibody to SS-A measurement Sjogrens Antibodies (Ro52,Ro60,SSB) Lab Routine Sjogren's syndrome, with unspecified organ involvement (HCC) Polyarthralgia 1 Occurrences starting 07/30/2023 until 07/30/2024 [facility] Work Phone: Comment on above: 1 Occurrences starti ng 07/30/2023 until 07/30/2024 Antibody to SS-A measurement Sjogrens Antibodies (Ro52,Ro60,SSB) Lab Routine Sjogren's syndrome, with unspecified organ involvement (HCC) Polyarthralgia 07/30/2023 9:57 AM EDT [facility] Benzodiazepine measurement, urine [facility] Bilirubin, total measurement [facility] Bilirubin.direct [Mass/volume] in Serum or Plasma [facility] Cocaine measurement, urine [facility] Colonoscopy [facility] Cortisol [Mass/volum e] in Serum or Plasma [facility] End: 05-27-2025 Drug Screen, Urine Drug Screen, Urine Lab STAT STAT (Lab) for 1 Occurrences starting 05/27/2025 until 05/27/2025 [facility] Work Phone: Comment on above: STAT (Lab) for 1 Occ urrences starting 05/27/2025 until 05/27/2025 End: 05-27-2025 Extra Urine [facility] Extra Urine [facility] Lab Timed Once for 1 Occurrences starting 05/27/2025 until 05/27/2025 [facility] Work Phone: Comment on above: Once for 1 Occurrenc es starting 05/27/2025 until 05/27/2025 [id number] [Presence] in Urine by Screen method [facility] Follitropin and Lutr opin panel [Units/volume] - Serum or Plasma [facility] End: 09-11-2024 Hepatitis C viral load Hepatitis C Virus PCR, Blood, Quantitative Lab Routine Polyarthralgia Encounter for screening for other viral diseases 1 Occurrences starting 09/11/2023 until 09/11/2024 [facility] Work Phone: Comment on above: 1 Occurrences starti ng 09/11/2023 until 09/11/2024 Hepatitis C viral load Hepatitis C Virus PCR, Blood, Quantitative Lab Routine Polyarthralgia 09/11/2023 11:15 AM EDT [facility] Influenza virus A an d B RNA and SARS-CoV-2 (COVID-19) N gene panel - Respiratory specimen by MEME with probe detection COVID WITH FLUA+B, ROUTINE Microbiology Routine Viral illness 03/04/2022 11:[address] [facility] Work Phone: Inhalation bronchial challenge testing [facility] Lactoferrin [Presenc e] in Stool by Immunoassay [facility] Work Phone: Methadone measuremen t, urine [facility] Microscopic urinalysis [facility] End: 08-03-2025 MR Hand - right WO and W contrast IV MR Hand Right With And Without Contrast Imaging Routine Polyarthralgia 1 Occurrences starting 08/03/2024 until 08/03/2025 [facility] Work Phone: Comment on above: 1 Occurrences starti ng 08/03/2024 until 08/03/2025 Organism count, microscopic method [facility] Patient Education [facility] Work Phone: Patient referral [facility] Work Phone: Phencyclidine [Prese nce] in Urine [facility] Procalcitonin [Mass/volume] in Serum or Plasma by Immunoassay [facility] Procedure [facility] Prolactin measurement [facility] Prostate specific an tigen measurement [facility] Protein measurement [facility] Work Phone: End: 07-30-2024 Rheumatoid factor, quantitative Rheumatoid factor Lab Add-On Polyarthralgia 1 Occurrences starting 07/30/2023 until 07/30/2024 [facility] Comment on above: 1 Occurrences starti ng 07/30/2023 until 07/30/2024 Tobacco use cessatio n education [facility] Tobacco use cessatio n education [facility] Tobacco use cessatio n education [facility] Tobacco use cessatio n education [facility] Total protein measurement [facility] End: 05-27-2025 Urinalysis complete W Reflex Culture panel - Urine [facility] Service Area Work Phone: Comment on above: Once (Lab) for 1 Occ urrences starting 05/27/2025 until 05/27/2025 Urine cannabinoid measurement [facility] Urine culture [facility] Urine microscopy: epithelial cells [facility] Urine microscopy: re d cells [facility] Urine opiate measurement [facility] End: 07-30-2024 Videofluoroscopy swallow XR Modifed Barium Swallow Imaging Routine Sjogren's syndrome, with unspecified organ involvement (HCC) Dysphagia, unspecified type 1 Occurrences starting 07/30/2023 until 07/30/2024 [facility] Comment on above: 1 Occurrences starti ng 07/30/2023 until 07/30/2024 White blood cell count [facility] Payers Date Payer Category Payer Legal Liability / Liability Insurance ACCIDENT RELATED NON-MEDICARE [id number] 2025 Medicare [id number] 2024 Self-pay [id number] 2022 Medicaid [id number] 2022 [facility] UE/PREF/HMO/PPO [id number] 2022 [employer] [place] [employer] [facility] [id number] 2022 Unknown 2022 Unknown [id number] 2021 Medicaid [employer] [id number] 2021-Present [phone] [address] [place] [address] Medicaid [id number] 2021 Medicaid [id number] 2021 Unknown [id number] 1981 Unknown [id number] 2.16.840.1.625578.3.579.2 .479 1981 Unknown [id number] 2.16840.1.261617.3.579.2 .903 1981 Unknown [id number] 2.840.1.971130.3.579.2 .903 1981 Unknown [id number] 2.16.840.1.404068.3.579.2 .903 1981 Unknown [id number] 2.16.840.1.347030.3.579.2 .1981 Unknown [id number] 2.16.840.1.283441.3.579.2 .1981 Unknown [id number] 2.16.840.1.281031.3.579.2 .1981 Unknown [id number] 2.16.840.1.252314.3.579.2 .1981 Unknown [id number] 2.840.1.829210.3.579.2 .1981 Unknown [id number] 2..840.1.199023.3.579.2 .1981 Unknown [id number] 2.840.1.428712.3.579.2 .1981 Unknown [id number] 2.840.1.498671.3.579.2 .1981 Unknown [id number] 2.840.1.694840.3.579.2 .1981 Unknown [id number] 2.840.1.765293.3.579.2 .1243 Unknown [id number] 2.840.1.364965.3.579.2 .462 Unknown [id number] 2.16840.1.029641.3.579.2 .462 Unknown [id number] 2.16840.1.581397.3.579.2 .462 Unknown [id number] 2.16.840.1.573893.3.579.2 .462 Unknown [id number] 2.16840.1.805834.3.579.2 .462 Unknown [id number] 2.16840.1.927913.3.579.2 .462 Unknown [id number] 2.16.840.1.199813.3.579.2 .462 Unknown [id number] 2.16.840.1.651801.3.579.2 .462 Unknown [id number] 2.16.840.1.177851.3.579.2 .462 Unknown [id number] 2.16.840.1.658503.3.579.2 .462 Unknown [id number] 2.16.840.1.516946.3.579.2 .462 Unknown [id number] 2.16.840.1.354330.3.579.2 .462 Unknown [id number] 2.16.840.1.775095.3.579.2 .462 Unknown [id number] 2.16.840.1.552804.3.579.2 .462 Unknown [id number] 2.16.840.1.646929.3.579.2 .462 Social History Date Type Detail Facility Start: 11-06-2022 End: 06-03-2025 Tobacco smoking status NHIS Smokes tobacco daily [facility] Work Phone: History of tobacco use Cigarette Smoker C [facility] Work Phone: Start: 04-12-2018 End: 03-04-2022 Alcohol intake Current non-drinker of alcohol (finding) [facility] Start: 05-29-2015 History SDOH Alcohol Comment past alcohol use [facility] Start: 1980 Sex Assigned At Not on file C [facility] Start: 02-22-2022 End: 03-04-2022 Exposure to SARS-CoV-2 (event) Not sure [facility] Start: 02-21-2022 End: 12-21-2023 Tobacco smoking status PRIS Unknown if ever smoked [facility] Start: 03-21-2021 Occasional [facility] Start: 03-21-2021 Cocaine;Heroin ;Marijuan a [facility] Start: 03-21-2021 Cigarettes [facility] Start: 1980 Sex Assigned At Male [facility] Start: 11-06-2022 End: 09-11-2023 Cigarettes smoked current (pack per day) - Reported 1 [facility] Start: 11-06-2022 End: 07-30-2023 Tobacco use and exposure Smokeless tobacco non-user [facility] Start: 07-30-2023 End: 09-11-2023 Gender identity Not on file [facility] Start: 01-26-2025 Sex Male (finding) [facility] Medical Equipment Procedure Code Equipment Code Equipment Origin al Text Equipment Identifier Dates Bard 3dmax Mesh [id number] Start: 07-19-2019 Comment on above: Description: Bard 3DMax Mesh Knitted Keshav ypropylene pre-formed mesh Large Right 4.3 x 6.3 (10.8cm x 16.0cm) Mesh 3dmax Large Polypropylene 6x4in Surgical Nonabsorbable Patch Preform - [id number] Start: 02-14-2021 Comment on above: Description: 10.8 cm x 16.0 cm Goals Date Patient Goal Desired Activity /State Functional Status Date Assessment Result Facility 05-27-2025 [facility] s everity rating scale screener - recent [C-SSRS] [facility] Work Phone: Mental Status Date Assessment Result Facility 06-03-2025 Cognitive function Level Of Cons ciousness Awake;Appropriate;Follows Commands [facility] Work Phone: 03-08-2024 Cognitive function Voice/Name [facility] Work Phone: 09-29-2023 Cognitive function Level Of Cons ciousness Awake;Alert;Appropriate [facility] Work Phone: 09-29-2023 Cognitive function Voice/Name [facility] Work Phone: 09-11-2022 Cognitive function Level Of Cons ciousness Awake;Drowsy [facility] Work Phone: 09-11-2022 Cognitive function Patient Orien tation Person;Place;Time [facility] Work Phone: 11-22-2021 Cognitive function Level Of Cons ciousness Awake;Alert;Appropriate;Follow s Commands [facility] Work Phone: Clinical Notes 03-04-2022 to 06-03-2025 Polly Aviles, - 04/19/2025 11:31 AM EDTWiLilibeth guido VALERI - 04/19/2025 11:21 AM EDT Note Date & Type Note Facility 06-03-2025 Radiology Diagnostic study note [facility] Imaging Services [address] [place] [address] Chest PA and Lateral MR#: [id number] Acct: [id number] Name: JOSE MCNAMARA Rep #: [id number] : 1980 M 45 From: Andie Dykes MD PCP: Dr. Josselyn Galindo MD Status: REG ER Study:Chest PA and Lateral Date of Exam: 06/03/25 Exam# [id number] Ordering Dr: Jimmy Traylor DO PROCEDURE: CHEST [...] IMPRESSION: COPD. NO ACUTE FINDINGS. Reading Location: [id number] CC: Dr. Josselyn Galindo MD; Dr. 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 Polly Aviles DO [facility] [place] [address] O: [phone] F: [phone] The above recommendations were discussed with the [...] Portions of this note were created with [employer]. Every effort was made to [...] (RR 0-0.9). Remaining comprehensive panel normal. Studies [facility] with negative RF/CCP and repeat Sjogren antibodies [...] stopped. 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 [facility] 04-19-2025 History of Present illness Narrative Images from the original note were not included. RHEUMATOLOGY FOLLOW-UP VISIT Patient Name: Jose Mcnamara : 1980 Medical Record: [id number] PCP: Josselyn Galindo MD Referring provider: CHIEF [...] any questions or concerns. Polly Aviles DO [facility] [address] [place] [address] O: [phone] F: [phone] The above recommendations were discussed with the [...] Portions of this note were created with [employer]. Every effort was made to [...] (RR 0-0.9). Remaining comprehensive panel normal. Studies [facility] with negative RF/CCP and repeat Sjogren antibodies [...] stopped. 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 [...] declined additional copy documented in this encounter [facility] 02-17-2025 Evaluation note Diagnosis Onset Date [...] 2025 9:53am Urinary hesitancy chronic March 9:53am [facility] Work Phone: 1(863) 398-402904-04-2025 Evaluation note* Diagnosis Onset Date Resolution Status [...] 10:00am Hepatitis C inactive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
--- OUTSIDE RECORDS SUMMARY | 2025-06-03 20:18 | XMS RPT_ITS | CCD ---
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 L503.0105, L501.9985, L500.4050, L3400.4800, L100.0100, L506.1000 ####[facility] [address] [place], [address] RDW SD 46.9 fl High 35.1-43.9 [facility] Comment on above: Performed By: #### L 500.4100, L503.0105, L501.9985, L500.4050, L3400.4800, L100.0100, L506.1000 ####[facility] [address] [place], [address] WBC (Bld) [#/Vol] 8.9 10*3/uL Normal 4.4-11.0 [facility] Comment on above: Performed By: #### L 500.4100, L503.0105, L501.9985, L500.4050, L3400.4800, L100.0100, L506.1000 ####[facility] [address] [place], [address] Carbon dioxide measurementOr dered By: Josselyn Galindo on 01-05-2025 CO2 [Moles/Vol] 31.0 mmol/L 21.0-32.0 [facility] Chloride measurementOrdered By: Josselyn Galindo on 01-05-2025 Chloride [Moles/Vol] 111 mmol/L High 98-107 [facility] Comprehensive Metabolic Prof ilon 01-05-2025 Albumin [Mass/Vol] 2.8 g/dL Low 3.2-5.0 [facility] Comment on above: Performed By: #### L 500.4100, L503.0105, L501.9985, L500.4050, L3400.4800, L100.0100, L506.1000 ####[facility] [address] [place], [address] Albumin/Globulin [Mass ratio] 0.9 {ratio} Normal 0.9-2.4 [facility] Comment on above: Performed By: #### L 500.4100, L503.0105, L501.9985, L500.4050, L3400.4800, L100.0100, L506.1000 ####[facility] [address] [place], [address] ALK P 63 U/L Normal 45-117 [facility] Comment on above: Performed By: #### L 500.4100, L503.0105, L501.9985, L500.4050, L3400.4800, L100.0100, L506.1000 ####[facility] [address] [place], [address] ALT [Catalytic activity/Vol] 22 U/L Normal 16-61 [facility] Comment on above: Performed By: #### L 500.4100, L503.0105, L501.9985, L500.4050, L3400.4800, L100.0100, L506.1000 ####[facility] [address] [place], [address] AST [Catalytic activity/Vol] 4 U/L Low 15-37 [facility] Comment on above: Performed By: #### L 500.4100, L503.0105, L501.9985, L500.4050, L3400.4800, L100.0100, L506.1000 ####[facility] [address] [place], [address] Bilirubin [Mass/Vol] 0.10 mg/dL Low 0.20-1.00 [facility] Comment on above: Result Comment: For patients on eltrombopag therapy, use of Dimension [place] TBIL is not recommended. Performed By: #### L 500.4100, L503.0105, L501.9985, L500.4050, L3400.4800, L100.0100, L506.1000 ####[facility] [address] [place], [address] BUN/CRE 24.0 RATIO High 10-20 [facility] Comment on above: Performed By: #### L 500.4100, L503.0105, L501.9985, L500.4050, L3400.4800, L100.0100, L506.1000 ####[facility] [address] [place], [address] CA,Total 8.3 mg/dL Low 8.5-10.1 [facility] Comment on above: Performed By: #### L 500.4100, L503.0105, L501.9985, L500.4050, L3400.4800, L100.0100, L506.1000 ####[facility] [address] [place], [address] Chloride [Moles/Vol] 111 mmol/L High 98-107 [facility] Comment on above: Performed By: #### L 500.4100, L503.0105, L501.9985, L500.4050, L3400.4800, L100.0100, L506.1000 ####[facility] [address] [place], [address] CO2 [Moles/Vol] 31.0 mmol/L Normal 21.0-32.0 [facility] Comment on above: Performed By: #### L 500.4100, L503.0105, L501.9985, L500.4050, L3400.4800, L100.0100, L506.1000 ####[facility] [address] [place], [address] Creatinine [Mass/Vol] 0.79 mg/dL Normal 0.70-1.30 [facility] Comment on above: Result Comment: The validity of the calculated GFR GFRAA in patients over 70 years has not been determined. Clinical correlation is essential. Performed By: #### L 500.4100, L503.0105, L501.9985, L500.4050, L3400.4800, L100.0100, L506.1000 ####[facility] [address] [place], [address] EST GFR - AA 137 mL/min Normal >60 [facility] Comment on above: Result Comment: Afri can Slovenian GFR Calc Performed By: #### L 500.4100, L503.0105, L501.9985, L500.4050, L3400.4800, L100.0100, L506.1000 ####[facility] [address] [place], [address] GAP 5 Normal 5-15 [facility] Comment on above: Performed By: #### L 500.4100, L503.0105, L501.9985, L500.4050, L3400.4800, L100.0100, L506.1000 ####[facility] [address] [place], [address] GFR/1.73 sq M.predicted among non-blacks MDRD (S/P/Bld) [Vol rate/Area] 113 mL/min/{1.73_m2} Normal >60 [facility] Comment on above: Result Comment: Non- GFR Calc Performed By: #### L 500.4100, L503.0105, L501.9985, L500.4050, L3400.4800, L100.0100, L506.1000 ####[facility] [address] [place], [address] Globulin (S) [Mass/Vol] 3.0 g/dL Normal 2.2-4.2 [facility] Comment on above: Performed By: #### L 500.4100, L503.0105, L501.9985, L500.4050, L3400.4800, L100.0100, L506.1000 ####[facility] [address] [place], [address] Glucose [Mass/Vol] 148 mg/dL High 74-106 [facility] Comment on above: Result Comment: Fast ing Glucose result greater than or equal to 126 mg/dL suggests DIABETES MELLITUS per A.D.A. criteria. Performed By: #### L 500.4100, L503.0105, L501.9985, L500.4050, L3400.4800, L100.0100, L506.1000 ####[facility] [address] [place], [address] Potassium [Moles/Vol] 3.4 mmol/L Low 3.5-5.1 [facility] Comment on above: Performed By: #### L 500.4100, L503.0105, L501.9985, L500.4050, L3400.4800, L100.0100, L506.1000 ####[facility] [address] [place], [address] Sodium [Moles/Vol] 147 mmol/L High 136-145 [facility] Comment on above: Performed By: #### L 500.4100, L503.0105, L501.9985, L500.4050, L3400.4800, L100.0100, L506.1000 ####[facility] [address] [place], [address] T PROT 5.8 g/dL Low 6.4-8.2 [facility] Comment on above: Performed By: #### L 500.4100, L503.0105, L501.9985, L500.4050, L3400.4800, L100.0100, L506.1000 ####[facility] [address] [place], [address] Urea nitrogen [Mass/Vol] 19 mg/dL High 7-18 [facility] Comment on above: Performed By: #### L 500.4100, L503.0105, L501.9985, L500.4050, L3400.4800, L100.0100, L506.1000 ####[facility] [address] [place], [address] Eosinophil percentageOrdered By: Josselyn Galindo on 01-05-2025 Eosinophils/100 WBC (Bld) 2.2 % 0-5 [facility] Erythrocyte distribution wid th ratioOrdered By: Josselyn Galindo on 01-05-2025 Erythrocyte distribution width (RBC) [Ratio] 13.4 % 11.6-14.6 [facility] Erythrocyte distribution wid th standard deviationOrdered By: Josselyn Galindo on 01-05-2025 Erythrocyte distribution width (RBC) [Entitic vol] 46.9 fL High 35.1-43.9 [facility] Erythrocyte distribution width (RBC) [Ratio] 46.9 fl High 35.1-43.9 [facility] Estimated glomerular filtrat ion rate (GFR) AmericanOrdered By: Josselyn Galindo on 01-05-2025 Estimated GFR (MDRD) Amer 137 mL/min >60 [facility] Comment on above: GFR Calc Glomerular filtration rate ( GFR) estimationOrdered By: Josselyn Galindo on 01-05-2025 Estimated GFR (MDRD) Non-Af Amer 113 mL/min >60 [facility] Comment on above: Non- GFR Calc GFR/1.73 sq M.predicted among non-blacks MDRD (S/P/Bld) [Vol rate/Area] 113 mL/min/{1.73_m2} >60 [facility] Comment on above: Non- GFR Calc Glucose measurementOrdered B y: Josselyn Galindo on 01-05-2025 Glucose [Mass/Vol] 148 mg/dL High 74-106 [facility] Comment on above: Fasting Glucose resu lt greater than or equal to 126 mg/dL suggests DIABETES MELLITUS per A.D.A. criteria. Hematocrit Auto (Bld) [Volum e fraction]Ordered By: Josselyn Galindo on 01-05-2025 Hematocrit (Bld) [Volume fraction] 46.1 % 40-54 [facility] Hemoglobin A1con 01-05-2025 HbA1c (Bld) [Mass fraction] 5.7 % High 3.8-5.6 [facility] Comment on above: Result Comment: Norm al < 5.7 % Prediabetic 5.7 - 6.4 % Diabetic >or= 6.5 % Please note range changes. Performed By: #### L 500.4100, L503.0105, L501.9985, L500.4050, L3400.4800, L100.0100, L506.1000 ####[facility] [address] [place], [address] Hemoglobin A1c percentageOrd ered By: Josselyn Galindo on 01-05-2025 HbA1c (Bld) [Mass fraction] 5.7 % High 3.8-5.6 [facility] Comment on above: Normal < 5.7 % Predi abetic 5.7 - 6.4 % Diabetic >or= 6.5 % Please note range changes. Hemoglobin measurementOrdere d By: Josselyn Galindo on 01-05-2025 Hemoglobin (Bld) [Mass/Vol] 14.2 g/dL 13.0-16.5 [facility] High density lipoprotein (HD L) measurementOrdered By: Josselyn Galindo on 01-05-2025 Cholesterol in HDL [Mass/Vol] 38 mg/dL Low >40 [facility] Comment on above: The drugs N-Acetylcy steine and Metamizole may falsely depress this assay. Reference Range HDL <40 mg/dL Low HDL Cholesterol HDL >or= 60 mg/dL High HDL Cholesterol Immature granulocytes/100 WB C Auto (Bld)Ordered By: Josselyn Galindo on 01-05-2025 Immature granulocytes/100 WBC (Bld) 1.100 % High 0.0-0.9 [facility] Comment on above: IG% - Immature Granu locytes (promyelocytes, myelocytes and metamyelocytes) > 1% indicates that a LEFT SHIFT is Present. Laboratory - Chemistry and C hemistry - challengeOrdered By: Josselyn Galindo on 01-05-2025 AST [Catalytic activity/Vol] 4 U/L Low 15-37 [facility] Lipid Profileon 01-05-2025 Cholesterol [Mass/Vol] 158 mg/dL Normal 200 [facility] Comment on above: Result Comment: <200 mg/dL Desirable 200-240 mg/dL Borderline >240 mg/dL High Risk Performed By: #### L 500.4100, L503.0105, L501.9985, L500.4050, L3400.4800, L100.0100, L506.1000 ####[facility] [address] [place], [address] Cholesterol in HDL [Mass/Vol] 38 mg/dL Low [facility] Comment on above: Result Comment: The drugs N-Acetylcysteine and Metamizole may falsely depress this assay. Reference Range HDL <40 mg/dL Low HDL Cholesterol HDL >or= 60 mg/dL High HDL Cholesterol Performed By: #### L 500.4100, L503.0105, L501.9985, L500.4050, L3400.4800, L100.0100, L506.1000 ####[facility] [address] [place], [address] Cholesterol in LDL [Mass/Vol] 81 mg/dL Normal 0-130 [facility] Comment on above: Performed By: #### L 500.4100, L503.0105, L501.9985, L500.4050, L3400.4800, L100.0100, L506.1000 ####[facility] [address] [place], [address] Cholesterol in VLDL [Mass/Vol] 39 mg/dL Normal 5-40 [facility] Comment on above: Performed By: #### L 500.4100, L503.0105, L501.9985, L500.4050, L3400.4800, L100.0100, L506.1000 ####[facility] [address] [place], [address] Triglyceride [Mass/Vol] 195 mg/dL Normal [facility] Comment on above: Result Comment: The drugs N-Acetylcysteine and Metamizole may falsely depress this assay. Serum Triglycerides Reference Interval Normal <150 mg/dL Borderline high 150 - 199 mg/dL High 200 - 499 mg/dL Very High > or = 500 mg/dL Performed By: #### L 500.4100, L503.0105, L501.9985, L500.4050, L3400.4800, L100.0100, L506.1000 ####[facility] [address] [place], [place], [id number] Low density lipoprotein (LDL ) cholesterol measurementOrdered By: Josselyn Galindo on 01-05-2025 Cholesterol in LDL [Mass/Vol] 81 mg/dL 0-130 [facility] Lymphocytes Auto (Unsp spec) [#/Vol]Ordered By: Josselyn Galindo on 01-05-2025 Lymphocytes (Bld) [#/Vol] 2.39 10*3/uL 0.83-4.51 [facility] Lymphocytes/100 WBC Auto (Un sp spec)Ordered By: Josselyn Galindo on 01-05-2025 Lymphocytes/100 WBC (Bld) 26.8 % 19-41 [facility] MCV (mean corpuscular volume ) determinationOrdered By: Josselyn Galindo on 01-05-2025 MCV (RBC) [Entitic vol] 94.7 fL High 80-94 [facility] Mean corpuscular hemoglobin (MCH) determinationOrdered By: Josselyn Galindo on 01-05-2025 MCH (RBC) [Entitic mass] 29.2 pg 27.0-32.0 [facility] Mean corpuscular hemoglobin concentration (MCHC) determinationOrdered By: Josselyn Galindo on 01-05-2025 MCHC (RBC) [Mass/Vol] 30.8 g/dL Low 32-36 [facility] Mean platelet volume determi nationOrdered By: Josselyn Galindo on 01-05-2025 Platelet mean volume (Bld) [Entitic vol] 10.8 fL 6.2-12.0 [facility] [facility] Monocyte percentageOrdered B y: Josselyn Galindo on 01-05-2025 Monocytes/100 WBC (Bld) 11.4 % High 0-10 [facility] Neutrophil percentageOrdered By: Josselynderick Galindo on 01-05-2025 Neutrophils/100 WBC (Bld) 57.9 % 47-70 [facility] Nucleated red blood cell per centageOrdered By: Josselyn Galindo on 01-05-2025 Nucleated RBC/100 WBC (Bld) [Ratio] 0 % 0-5 [facility] Platelet countOrdered By: Benjamin Galindo on 01-05-2025 Platelets (Bld) [#/Vol] 182 10*3/uL 150-450 [facility] Potassium measurementOrdered By: Josselyn Galindo on 01-05-2025 Potassium [Moles/Vol] 3.4 mmol/L Low 3.5-5.1 [facility] RBC Auto (Bld) [#/Vol]Ordere d By: Josselyn Galindo on 01-05-2025 RBC (Bld) [#/Vol] 4.87 10*6/uL 4.6-6.2 [facility] Serum anion gap measurementO rdered By: Josselyn Galindo on 01-05-2025 Anion gap [Moles/Vol] 5 mmol/L 5-15 [facility] Serum globulin measurementOr dered By: Josselyn Galindo on 01-05-2025 Globulin (S) [Mass/Vol] 3.0 g/dL 2.2-4.2 [facility] Serum or plasma alanine delong otransferase (ALT) measurementOrdered By: Josselyn Galindo on 01-05-2025 ALT [Catalytic activity/Vol] 22 U/L 16-61 [facility] Serum or plasma albumin cristina urement (mass/volume)Ordered By: Josselyn Galindo on 01-05-2025 Albumin [Mass/Vol] 2.8 g/dL Low 3.2-5.0 [facility] Serum or plasma alkaline leland sphatase measurementOrdered By: Josselyn Galindo on 01-05-2025 ALP [Catalytic activity/Vol] 63 U/L 45-117 [facility] Serum or plasma calcium cristina urement (mass/volume)Ordered By: Josselyn Galindo on 01-05-2025 Calcium [Mass/Vol] 8.3 mg/dL Low 8.5-10.1 [facility] Serum or plasma cholesterol measurement (mass/volume)Ordered By: Josselyn Galindo on 01-05-2025 Cholesterol [Mass/Vol] 158 mg/dL <200 [facility] Comment on above: <200 mg/dL Desirable 200-240 mg/dL Borderline >240 mg/dL High Risk Serum or plasma creatinine m easurement (mass/volume)Ordered By: Josselyn Galindo on 01-05-2025 Creatinine [Mass/Vol] 0.79 mg/dL 0.70-1.30 [facility] Comment on above: The validity of the calculated GFR & GFRAA in patients over 70 years has not been determined. Clinical correlation is essential. Serum or plasma free testost erone measurement (mass/volume)Ordered By: Josselyn Galindo on 01-05-2025 Testosterone Free [Mass/Vol] 0.9 pg/mL Low 6.8-21.5 [facility] Comment on above: Performed at: [address] [id number] Director: Debby Cruz MD, Phone: [phone] Serum or plasma urea nitroge n measurement (mass/volume)Ordered By: Josselyn Galindo on 01-05-2025 Urea nitrogen [Mass/Vol] 19 mg/dL High 7-18 [facility] Sodium levelOrdered By: Violette Galindo on 01-05-2025 Sodium [Moles/Vol] 147 mmol/L High 136-145 [facility] Testosterone Free [Mass/Vol] Ordered By: Josselyn Galindo on 01-05-2025 Free Testosterone 0.9 pg/mL Low 6.8-21.5 [facility] Comment on above: Performed at: [facility] - [place] [address] [id number] Director: Debby Cruz MD, Phone: [phone] Total proteinOrdered By: Omar Galindo on 01-05-2025 Protein [Mass/Vol] 5.8 g/dL Low 6.4-8.2 [facility] Triglycerides measurementOrd ered By: Josselyn Galindo on 01-05-2025 Triglyceride [Mass/Vol] 195 mg/dL <199 [facility] Comment on above: The drugs N-Acetylcy steine and Metamizole may falsely depress this assay.Serum Triglycerides Reference Interval Normal <150 mg/dL Borderline high 150 - 199 mg/dL High 200 - 499 mg/dL Very High > or = 500 mg/dL Very low density lipoprotein (VLDL) cholesterol measurementOrdered By: Josselyn Galindo on 01-05-2025 Very low density lipoprotein (VLDL) cholesterol measurement 39 mg/dL 5-40 [facility] VLDL Cholesterol 39 mg/dL 5-40 [facility] Vitamin B12on 01-05-2025 Cobalamin (Vitamin B12) [Mass/Vol] 366 pg/mL Normal 211-911 [facility] Comment on above: Performed By: #### L 500.4100, L503.0105, L501.9985, L500.4050, L3400.4800, L100.0100, L506.1000 ####[facility] [address] [place], [address] Vitamin B12 measurementOrder ed By: Josselyn Galindo on 01-05-2025 Cobalamin (Vitamin B12) [Mass/Vol] 366 pg/mL 211-911 [facility] Vitamin D,25 Hydroxyon 01-05 Vitamin D 25-OH 27.3 ng/mL Normal [facility] Comment on above: Result Comment: Kelly min D 25(OH) Status Range Deficiency <20 ng/mL (50nmol/L) Insufficiency 20 - 30 ng/mL (50 - 75 nmol/L) Sufficiency 30 - 100 ng/mL (75 - 250 nmol/L) Toxicity >100 ng/mL (>250 nmol/L) Performed By: #### L 500.4100, L503.0105, L501.9985, L500.4050, L3400.4800, L100.0100, L506.1000 ####[facility] [address] [place], [address] White blood cell (WBC) count Ordered By: Josselyn Galindo on 01-05-2025 WBC (Bld) [#/Vol] 8.9 10*3/uL 4.4-11.0 [facility] Ammoniaon 12-28-2024 Ammonia (P) [Moles/Vol] 22.0 umol/L Normal 11-32 [facility] Comment on above: Performed By: #### L 501.5200, L500.3400, L500.2500, L503.5510 #### [facility] Laboratory [address] [place], [address] Basic Metabolic Profile (BMP )on 12-28-2024 BUN/CRE 21.6 RATIO High - [facility] Comment on above: Performed By: #### L 501.5200, L500.3400, L500.2500, L503.5510 #### [facility] [address] [place], [address] CA,Total 8.4 mg/dL Low 8.5-10.1 [facility] Comment on above: Performed By: #### L 501.5200, L500.3400, L500.2500, L503.5510 #### [facility] [address] [place], [address] Chloride [Moles/Vol] 104 mmol/L Normal 98-107 [facility] Comment on above: Performed By: #### L 501.5200, L500.3400, L500.2500, L503.5510 #### [facility] [address] [place], [address] CO2 [Moles/Vol] 29.0 mmol/L Normal 21.0-32.0 [facility] Comment on above: Performed By: #### L 501.5200, L500.3400, L500.2500, L503.5510 #### [facility] [address] [place], [address] Creatinine [Mass/Vol] 0.74 mg/dL Normal 0.70-1.30 [facility] Comment on above: Result Comment: The validity of the calculated GFR GFRAA in patients over 70 years has not been determined. Clinical correlation is essential. Performed By: #### L 501.5200, L500.3400, L500.2500, L503.5510 #### [facility] [address] [place], [address] EST GFR - AA 148 mL/min Normal >60 [facility] Comment on above: Result Comment: Afri can Slovenian GFR Calc Performed By: #### L 501.5200, L500.3400, L500.2500, L503.5510 #### [facility] [address] [place], [address] GAP 6 Normal 5-15 [facility] Comment on above: Performed By: #### L 501.5200, L500.3400, L500.2500, L503.5510 #### [facility] [address] [place], [address] GFR/1.73 sq M.predicted among non-blacks MDRD (S/P/Bld) [Vol rate/Area] 122 mL/min/{1.73_m2} Normal >60 [facility] Comment on above: Result Comment: Non- GFR Calc Performed By: #### L 501.5200, L500.3400, L500.2500, L503.5510 #### [facility] [address] [place], [address] Glucose [Mass/Vol] 125 mg/dL High 74-106 [facility] Comment on above: Result Comment: Fast ing Glucose result from 100 to 125 mg/dL suggests IMPAIRED HOMEOSTASIS per A.D.A. criteria. Performed By: #### L 501.5200, L500.3400, L500.2500, L503.5510 #### [facility] [address] [place], [address] Potassium [Moles/Vol] 4.6 mmol/L Normal 3.5-5.1 [facility] Comment on above: Performed By: #### L 501.5200, L500.3400, L500.2500, L503.5510 #### [facility] [address] [place], [address] Sodium [Moles/Vol] 138 mmol/L Normal 136-145 [facility] Comment on above: Performed By: #### L 501.5200, L500.3400, L500.2500, L503.5510 #### [facility] [address] [place], [address] Urea nitrogen [Mass/Vol] 16 mg/dL Normal 7-18 [facility] Comment on above: Performed By: #### L 501.5200, L500.3400, L500.2500, L503.5510 #### [facility] [address] [place], [address] Bilirubin directOrdered By: Jovita Jimenez on 12-28-2024 Bilirubin.direct [Mass/Vol] 0.13 mg/dL 0.00-0.30 [facility] Bilirubin, totalOrdered By: Jovita Jimenez on 12-28-2024 Bilirubin [Mass/Vol] 0.30 mg/dL 0.20-1.00 [facility] Comment on above: For patients on eltr ombopag therapy, use of Dimension [place] TBIL is not recommended. Blood urea nitrogen (BUN)/cr eatinine ratioOrdered By: Jovita Jimenez on 12-28-2024 Urea nitrogen/Creatinine [Mass ratio] 21.6 mg/mg High 10-20 [facility] Carbon dioxide measurementOr dered By: Jovita Jimenez on 12-28-2024 CO2 [Moles/Vol] 29.0 mmol/L 21.0-32.0 [facility] Chloride measurementOrdered By: Jovita Jimenez on 12-28-2024 Chloride [Moles/Vol] 104 mmol/L 98-107 [facility] Estimated glomerular filtrat ion rate (GFR) AmericanOrdered By: Jovita Jimenez on 12-28-2024 Estimated GFR (MDRD) Amer 148 mL/min >60 [facility] Comment on above: GFR Calc Gastroenterology Visit Repor ton 12-28-2024 Gastroenterology Visit Report [facility] Gastroenterology [address] [place] [address] OFFICE VISIT Date of Service: 12/28/24 MR#: [id number] Acct: [id number] Name: JOSE MCNAMARA Rep #: [id number] : 1980 Provider: Keny Guevara DO Age/Sex: 44/M [place] [facility] [place] Status: Signed Intake Vital Signs 10/04/24 10:44 [...] show. OV (more content not included)... Normal [facility] Glomerular filtration rate ( GFR) estimationOrdered By: Jovita Jimenez on 12-28-2024 Estimated GFR (MDRD) Non-Af Amer 122 mL/min >60 [facility] Comment on above: Non- GFR Calc GFR/1.73 sq M.predicted among non-blacks MDRD (S/P/Bld) [Vol rate/Area] 122 mL/min/{1.73_m2} >60 [facility] Comment on above: Non- GFR Calc Glucose measurementOrdered B y: Jovita Jimenez on 12-28-2024 Glucose [Mass/Vol] 125 mg/dL High 74-106 [facility] Comment on above: Fasting Glucose resu lt from 100 to 125 mg/dL suggests IMPAIRED HOMEOSTASIS per A.D.A. criteria. Laboratory - Chemistry and C hemistry - challengeOrdered By: Jovita Jimenez on 12-28-2024 AST [Catalytic activity/Vol] 19 U/L 15-37 [facility] Liver Profileon 12-28-2024 Albumin [Mass/Vol] 3.3 g/dL Normal 3.2-5.0 [facility] Comment on above: Performed By: #### L 501.5200, L500.3400, L500.2500, L503.5510 ####[facility] [address] [place], [address] ALK P 83 U/L Normal 45-117 [facility] Comment on above: Performed By: #### L 501.5200, L500.3400, L500.2500, L503.5510 ####[facility] [address] [place], [address] ALT [Catalytic activity/Vol] 48 U/L Normal 16-61 [facility] Comment on above: Performed By: #### L 501.5200, L500.3400, L500.2500, L503.5510 ####[facility] [address] [place], [address] AST [Catalytic activity/Vol] 19 U/L Normal 15-37 [facility] Comment on above: Performed By: #### L 501.5200, L500.3400, L500.2500, L503.5510 ####[facility] [address] [place], [address] Bilirubin [Mass/Vol] 0.30 mg/dL Normal 0.20-1.00 [facility] Comment on above: Result Comment: For patients on eltrombopag therapy, use of [place] TBIL is not recommended. Performed By: #### L 501.5200, L500.3400, L500.2500, L503.5510 ####[facility] [address] [place], [address] Bilirubin.direct [Mass/Vol] 0.13 mg/dL Normal 0.00-0.30 [facility] Comment on above: Performed By: #### L 501.5200, L500.3400, L500.2500, L503.5510 ####[facility] [address] [place], [address] Globulin (S) [Mass/Vol] 3.2 g/dL Normal 2.2-4.2 [facility] Comment on above: Performed By: #### L 501.5200, L500.3400, L500.2500, L503.5510 ####[facility] [address] [place], [address] T PROT 6.5 g/dL Normal 6.4-8.2 [facility] Comment on above: Performed By: #### L 501.5200, L500.3400, L500.2500, L503.5510 ####[facility] [address] [place], [address] Magnesiumon 12-28-2024 Magnesium [Mass/Vol] 2.2 mg/dL Normal 1.6-2.6 [facility] Comment on above: Performed By: #### L 501.5200, L500.3400, L500.2500, L503.5510 ####[facility] [address] [place], [address] Magnesium measurementOrdered By: Jovita Jimenez on 12-28-2024 Magnesium [Mass/Vol] 2.2 mg/dL 1.6-2.6 [facility] Potassium measurementOrdered By: Jovita Jimenez on 12-28-2024 Potassium [Moles/Vol] 4.6 mmol/L 3.5-5.1 [facility] Serum anion gap measurementO rdered By: Jovita Jimenez on 12-28-2024 Anion gap [Moles/Vol] 6 mmol/L 5-15 [facility] Serum globulin measurementOr dered By: Jovita Jimenez on 12-28-2024 Globulin (S) [Mass/Vol] 3.2 g/dL 2.2-4.2 [facility] Serum or plasma alanine delong otransferase (ALT) measurementOrdered By: Jovita Jimenez on 12-28-2024 ALT [Catalytic activity/Vol] 48 U/L 16-61 [facility] Serum or plasma albumin cristina urement (mass/volume)Ordered By: Jovita Jimenez on 12-28-2024 Albumin [Mass/Vol] 3.3 g/dL 3.2-5.0 [facility] Serum or plasma alkaline leland sphatase measurementOrdered By: Jovita Jimenez on 12-28-2024 ALP [Catalytic activity/Vol] 83 U/L 45-117 [facility] Serum or plasma calcium cristina urement (mass/volume)Ordered By: Jovita Jimenez on 12-28-2024 Calcium [Mass/Vol] 8.4 mg/dL Low 8.5-10.1 [facility] Serum or plasma creatinine m easurement (mass/volume)Ordered By: Jovita Jimenez on 12-28-2024 Creatinine [Mass/Vol] 0.74 mg/dL 0.70-1.30 [facility] Comment on above: The validity of the calculated GFR & GFRAA in patients over 70 years has not been determined. Clinical correlation is essential. Serum or plasma urea nitroge n measurement (mass/volume)Ordered By: Jovita Jimenez on 12-28-2024 Urea nitrogen [Mass/Vol] 16 mg/dL 7-18 [facility] Sodium levelOrdered By: Eric Jimenez on 12-28-2024 Sodium [Moles/Vol] 138 mmol/L 136-145 [facility] Total proteinOrdered By: Anna Jimenez on 12-28-2024 Protein [Mass/Vol] 6.5 g/dL 6.4-8.2 [facility] Venous blood ammonia measure mentOrdered By: Jovita Jimenez on 12-28-2024 Ammonia (P) [Moles/Vol] 22.0 umol/L [facility] Internal Medicine Office Vis itomeli 12-26-2024 Internal Medicine Office Visit [facility] [address] [place] [address] OFFICE VISIT Date of Service: 12/27/24 MR#: [id number] Acct: [id number] Name: JOSE MCNAMARA Rep #: [id number] : 1980 Provider: Dr. Josselyn youngblood MD Age/Sex: 44/M Location: [facility] [place] Status: Signed Intake Vital Signs 10/04/24 10:44 [...] wants podiatry referral Chief Complaint: follow up Telephone Ad Taker Required: No Accompanied by: Self Is patient [...] leg starting to heal. [facility] fixed ingrown toenail PFSH Medical [...] friend(s) current occupational status: employed current occupation: [employer], on FML[employer] currently due to abdominal problems [...] to qu (more content not included)... Normal [facility] Gastroenterology Visit Repor ton 10-04-2024 Gastroenterology Visit Report [facility] Gastroenterology [address] [place] [address] OFFICE VISIT Date of Service: 10/04/24 MR#: [id number] Acct: [id number] Name: JOSE MCNAMARA Rep #: [id number] : 1980 Provider: Keny Guevara DO Age/Sex: 44/M Location[place] [facility] [place] Status: Signed Intake Vital Signs 05/24/24 07:36 [...] mcg PO BID PRN 10/04/24 History (Amitiza) [facility] Medical History Pain Crohn's disease Sjogren's disease [...] friend(s) current occupational status: employed current occupation: [employer], on [employer] currently due to abdominal problems Smoking Status: [...] with promethazi (more content not included)... Normal [facility] Upper Ext No Joint W/WO Cont on 09-21-2024 Upper Ext No Joint W/WO Cont [facility] Imaging Services [address] [place], [place] [address] Upper Ext No Joint W/WO Cont MR#: [id number] Acct: [id number] Name: JOSE MCNAMARA Rep #: [id number] : 1980 M 44 From: Matt Roy MD PCP: Dr. Josselyn Galindo MD Status: REG CLI Study: Upper Ext No Joint W/WO Cont Date of Exam: Exam# [id number] Ordering Dr: Polly Aviles DO [id number] STUDY: MRI RIGHT HAND, WITHOUT AND WITH IV CONTRAST REASON FOR EXAM: Male, 44 years old. 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 TECHNIQUE: Standardized fat and water weighted pulse [...] 14:32 EST Reading Location ID and State: [address] [place] [address] , Service support , CC: Dr. Josselyn Galindo MD; Dr. Polly Aviles DO Medical Driver: Signed Normal [facility] CBC W/Diff, Automatedon 10-1 Absolute Lymph 2.09 X10 3/uL Normal 0.83-4.51 [facility] Comment on above: Performed By: #### L 501.7900, L500.4050, L100.0100, L501.8100 ####[facility] [address] [place], [place], [id number] Absolute Neut 8.3 X10 3/uL High 2.0-7.7 [facility] Comment on above: Performed By: #### L 501.7900, L500.4050, L100.0100, L501.8100 ####[facility] [address] [place], [address] Basophils/100 WBC (Bld) 0.7 % Normal 0-1 [facility] Comment on above: Performed By: #### L 501.7900, L500.4050, L100.0100, L501.8100 ####[facility] [address] [place], [address] Eosinophils/100 WBC (Bld) 1.6 % Normal 0-5 [facility] Comment on above: Performed By: #### L 501.7900, L500.4050, L100.0100, L501.8100 ####[facility] [address] [place], [address] Erythrocyte distribution width (RBC) [Ratio] 13.7 % Normal 11.6-14.6 [facility] Comment on above: Performed By: #### L 501.7900, L500.4050, L100.0100, L501.8100 ####[facility] [address] [place], [address] Hematocrit (Bld) [Volume fraction] 49.9 % Normal 40-54 [facility] Comment on above: Performed By: #### L 501.7900, L500.4050, L100.0100, L501.8100 ####[facility] [address] [place], [address] Hemoglobin (Bld) [Mass/Vol] 15.7 g/dL Normal 13.0-16.5 [facility] Comment on above: Performed By: #### L 501.7900, L500.4050, L100.0100, L501.8100 ####[facility] [address] [place], [address] IG% 0.600 Normal 0.0-0.9 [facility] Comment on above: Result Comment: IG% - Immature Granulocytes (promyelocytes, myelocytes and metamyelocytes) > 1% indicates that a LEFT SHIFT is Present. Performed By: #### L 501.7900, L500.4050, L100.0100, L501.8100 ####[facility] [address] [place], [address] Lymphocytes/100 WBC (Bld) 18.1 % Low 19-41 [facility] Comment on above: Performed By: #### L 501.7900, L500.4050, L100.0100, L501.8100 ####[facility] [address] [place], [address] MCH (RBC) [Entitic mass] 28.1 pg Normal 27.0-32.0 [facility] Comment on above: Performed By: #### L 501.7900, L500.4050, L100.0100, L501.8100 ####[facility] [address] [place], [address] MCHC (RBC) [Mass/Vol] 31.5 g/dL Low 32-36 [facility] Comment on above: Performed By: #### L 501.7900, L500.4050, L100.0100, L501.8100 ####[facility] [address] [place], [address] MCV (RBC) [Entitic vol] 89.4 fL Normal 80-94 [facility] Comment on above: Performed By: #### L 501.7900, L500.4050, L100.0100, L501.8100 ####[facility] [address] [place], [address] Monocytes/100 WBC (Bld) 7.4 % Normal 0-10 [facility] Comment on above: Performed By: #### L 501.7900, L500.4050, L100.0100, L501.8100 ####[facility] [address] [place], [address] Neutrophils/100 WBC (Bld) 71.6 % High 47-70 [facility] Comment on above: Performed By: #### L 501.7900, L500.4050, L100.0100, L501.8100 ####[facility] [address] [place], [address] Nucleated RBC (Bld) [#/Vol] 0 10*3/uL Normal 0-5 [facility] Comment on above: Performed By: #### L 501.7900, L500.4050, L100.0100, L501.8100 ####[facility] [address] [place], [address] Platelet mean volume (Bld) [Entitic vol] 11.4 fL Normal 6.2-12.0 [facility] Comment on above: Performed By: #### L 501.7900, L500.4050, L100.0100, L501.8100 ####[facility] [address] [place], [address] Platelets (Bld) [#/Vol] 188 10*3/uL Normal 150-450 [facility] Comment on above: Performed By: #### L 501.7900, L500.4050, L100.0100, L501.8100 ####[facility] [address] [place], [address] RBC (Bld) [#/Vol] 5.58 10*6/uL Normal 4.6-6.2 [facility] Comment on above: Performed By: #### L 501.7900, L500.4050, L100.0100, L501.8100 ####[facility] [address] [place], [address] RDW SD 45.4 fl High 35.1-43.9 [facility] Comment on above: Performed By: #### L 501.7900, L500.4050, L100.0100, L501.8100 ####[facility] [address] [place], [address] WBC (Bld) [#/Vol] 11.6 10*3/uL High 4.4-11.0 [facility] Comment on above: Performed By: #### L 501.7900, L500.4050, L100.0100, L501.8100 ####[facility] [address] [place], [address] Carbamazepine (Tegretol)on 1 CARBAMAZEPINE < 0.5 Low 4.0-12.0 [facility] Comment on above: Performed By: #### L 501.7900, L500.4050, L100.0100, L501.8100 ####[facility] [address] [place], [address] Comprehensive Metabolic Prof ilon 08-29-2024 Albumin [Mass/Vol] 3.1 g/dL Low 3.2-5.0 [facility] Comment on above: Performed By: #### L 501.7900, L500.4050, L100.0100, L501.8100 ####[facility] [address] [place], [address] Albumin/Globulin [Mass ratio] 1.0 {ratio} Normal 0.9-2.4 [facility] Comment on above: Performed By: #### L 501.7900, L500.4050, L100.0100, L501.8100 ####[facility] [address] [place], [address] ALK P 65 U/L Normal 45-117 [facility] Comment on above: Performed By: #### L 501.7900, L500.4050, L100.0100, L501.8100 ####[facility] [address] [place], [address] ALT [Catalytic activity/Vol] 9 U/L Low 16-61 [facility] Comment on above: Performed By: #### L 501.7900, L500.4050, L100.0100, L501.8100 ####[facility] [address] [place], [address] AST [Catalytic activity/Vol] 5 U/L Low 15-37 [facility] Comment on above: Performed By: #### L 501.7900, L500.4050, L100.0100, L501.8100 ####[facility] [address] [place], [address] Bilirubin [Mass/Vol] 0.20 mg/dL Normal 0.20-1.00 [facility] Comment on above: Result Comment: For patients on eltrombopag therapy, use of Dimension [place] TBIL is not recommended. Performed By: #### L 501.7900, L500.4050, L100.0100, L501.8100 ####[facility] [address] [place], [address] BUN/CRE 24.3 RATIO High 10-20 [facility] Comment on above: Performed By: #### L 501.7900, L500.4050, L100.0100, L501.8100 ####[facility] [address] [place], [address] CA,Total 8.5 mg/dL Normal 8.5-10.1 [facility] Comment on above: Performed By: #### L 501.7900, L500.4050, L100.0100, L501.8100 ####[facility] [address] [place], [address] Chloride [Moles/Vol] 106 mmol/L Normal 98-107 [facility] Comment on above: Performed By: #### L 501.7900, L500.4050, L100.0100, L501.8100 ####[facility] [address] [place], [address] CO2 [Moles/Vol] 31.0 mmol/L Normal 21.0-32.0 [facility] Comment on above: Performed By: #### L 501.7900, L500.4050, L100.0100, L501.8100 ####[facility] [address] [place], [address] Creatinine [Mass/Vol] 0.70 mg/dL Normal 0.70-1.30 [facility] Comment on above: Result Comment: The validity of the calculated GFR GFRAA in patients over 70 years has not been determined. Clinical correlation is essential. Performed By: #### L 501.7900, L500.4050, L100.0100, L501.8100 ####[facility] [address] [place], [address] EST GFR - AA 158 mL/min Normal >60 [facility] Comment on above: Result Comment: Afri can Slovenian GFR Calc Performed By: #### L 501.7900, L500.4050, L100.0100, L501.8100 ####[facility] [address] [place], [address] GAP 6 Normal 5-15 [facility] Comment on above: Performed By: #### L 501.7900, L500.4050, L100.0100, L501.8100 ####[facility] [address] [place], [address] GFR/1.73 sq M.predicted among non-blacks MDRD (S/P/Bld) [Vol rate/Area] 131 mL/min/{1.73_m2} Normal >60 [facility] Comment on above: Result Comment: Non- GFR Calc Performed By: #### L 501.7900, L500.4050, L100.0100, L501.8100 ####[facility] [address] [place], [address] Globulin (S) [Mass/Vol] 3.0 g/dL Normal 2.2-4.2 [facility] Comment on above: Performed By: #### L 501.7900, L500.4050, L100.0100, L501.8100 ####[facility] [address] [place], [address] Glucose [Mass/Vol] 123 mg/dL High 74-106 [facility] Comment on above: Result Comment: Fast ing Glucose result from 100 to 125 mg/dL suggests IMPAIRED HOMEOSTASIS per A.D.A. criteria. Performed By: #### L 501.7900, L500.4050, L100.0100, L501.8100 ####[facility] [address] [place], [address] Potassium [Moles/Vol] 4.1 mmol/L Normal 3.5-5.1 [facility] Comment on above: Performed By: #### L 501.7900, L500.4050, L100.0100, L501.8100 ####[facility] [address] [place], [address] Sodium [Moles/Vol] 142 mmol/L Normal 136-145 [facility] Comment on above: Performed By: #### L 501.7900, L500.4050, L100.0100, L501.8100 ####[facility] [address] [place], [address] T PROT 6.1 g/dL Low 6.4-8.2 [facility] Comment on above: Performed By: #### L 501.7900, L500.4050, L100.0100, L501.8100 ####[facility] [address] [place], [address] Urea nitrogen [Mass/Vol] 17 mg/dL Normal 7-18 [facility] Comment on above: Performed By: #### L 501.7900, L500.4050, L100.0100, L501.8100 ####[facility] [address] [place], [address] Valproic Acid (Depakene) Lev subhash 08-29-2024 VALPROIC ACID 78 ug/mL Normal 50-100 [facility] Comment on above: Performed By: #### L 501.7900, L500.4050, L100.0100, L501.8100 ####[facility] [address] [place], [address] Brain W/WO Contraston 2023 Brain W/WO Contrast [facility] Imaging Services [address] [place] [address] Brain W/WO Contrast MR#: [id number] Acct: [id number] Name: JOSE MCNAMARA Rep #: [id number] : 1980 M 44 From: Logan Causey MD PCP: Dr. Josselyn Galindo MD Status: REG CLI Study: Brain W/WO Contrast Date of Exam: 06/08/24 Exam# [id number] Ordering Dr: Jovita Contreras ARCHITECTURE MANAGER-C [id number] EXAM: MR HEAD WITHOUT AND WITH INTRAVENOUS [...] CC: COURTNEY Contreras; Dr. Josselyn Galindo MD Medical Driver: Signed Normal [facility] Absolute lymphocyte countOrd ered By: Elinameli Chávez on 01-11-2024 Lymphocytes Auto (Unsp spec) [#/Vol] 2.78 10*3/uL 0.83-4.51 [facility] Automated lymphocyte count a s percentage of total leukocytesOrdered By: Elinameli Chávez on 01-11-2024 Lymphocytes/100 WBC Auto (Unsp spec) 29.7 % 19-41 [facility] Basophil percentageOrdered B y: Elina Saira on 01-11-2024 Basophils/100 WBC (Bld) 0.4 % 0-1 [facility] Bilirubin [Mass/Vol] 0.20 mg/dL 0.20-1.00 [facility] Comment on above: For patients on eltr ombopag therapy, use of Dimension [place] TBIL is not recommended. Chloride [Moles/Vol] 109 mmol/L 98-107 [facility] Cholesterol [Mass/Vol] 145 mg/dL <200 [facility] Comment on above: <200 mg/dL Desirable 200-240 mg/dL Borderline >240 mg/dL High Risk Eosinophils/100 WBC (Bld) 1.8 % 0-5 [facility] Glucose [Mass/Vol] 94 mg/dL 74-106 [facility] Hemoglobin (Bld) [Mass/Vol] 15.7 g/dL 13.0-16.5 [facility] Monocytes/100 WBC (Bld) 8.4 % 0-10 [facility] Neutrophils (Bld) [#/Vol] 5.5 10*3/uL 2.0-7.7 [facility] Neutrophils/100 WBC (Bld) 59.4 % 47-70 [facility] Potassium [Moles/Vol] 4.5 mmol/L 3.5-5.1 [facility] Protein [Mass/Vol] 7.1 g/dL 6.4-8.2 [facility] Sodium [Moles/Vol] 142 mmol/L 136-145 [facility] Triglyceride [Mass/Vol] 60 mg/dL <199 [facility] Comment on above: The drugs N-Acetylcy steine and Metamizole may falsely depress this assay.Serum Triglycerides Reference Interval Normal <150 mg/dL Borderline high 150 - 199 mg/dL High 200 - 499 mg/dL Very High > or = 500 mg/dL WBC (Bld) [#/Vol] 9.4 10*3/uL 4.4-11.0 [facility] Determination of erythrocyte mean corpuscular volume (MCV)Ordered By: Elina Chávez on 01-11-2024 MCV (RBC) [Entitic vol] 85.9 fL 80-94 [facility] Erythrocyte distribution wid th ratioOrdered By: Elina Chávez on 01-11-2024 Erythrocyte distribution width (RBC) [Ratio] 13.1 % 11.6-14.6 [facility] Erythrocyte distribution wid th standard deviationOrdered By: Elina Chávez on 01-11-2024 Erythrocyte distribution width (RBC) [Entitic vol] 41.0 fL 35.1-43.9 [facility] Hematocrit Auto (Bld) [Volum e fraction]Ordered By: Elina Chávez on 01-11-2024 Hematocrit (Bld) [Volume fraction] 48.7 % 40-54 [facility] Immature granulocytes/100 WB C Auto (Bld)Ordered By: Elina Chávez on 01-11-2024 Immature granulocytes/100 WBC (Bld) 0.300 % 0.0-0.9 [facility] Comment on above: IG% - Immature Granu locytes (promyelocytes, myelocytes and metamyelocytes) > 1% indicates that a LEFT SHIFT is Present. Laboratory - Chemistry and C hemistry - challengeOrdered By: Elina Chávez on 01-11-2024 Albumin/Globulin [Mass ratio] 1.0 {ratio} 0.9-2.4 [facility] ALP [Catalytic activity/Vol] 115 U/L 45-117 [facility] ALT [Catalytic activity/Vol] 21 U/L 16-61 [facility] Cholesterol in HDL [Mass/Vol] 36 mg/dL >40 [facility] Comment on above: The drugs N-Acetylcy steine and Metamizole may falsely depress this assay. Reference Range HDL <40 mg/dL Low HDL Cholesterol HDL >or= 60 mg/dL High HDL Cholesterol Cholesterol in LDL [Mass/Vol] 97 mg/dL 0-130 [facility] CO2 [Moles/Vol] 32.0 mmol/L 21.0-32.0 [facility] Globulin (S) [Mass/Vol] 3.5 g/dL 2.2-4.2 [facility] Urea nitrogen/Creatinine [Mass ratio] 24.4 mg/mg 10-20 [facility] Laboratory - Hematology and Cell countsOrdered By: Elina Chávez on 01-11-2024 MCH (RBC) [Entitic mass] 27.7 pg 27.0-32.0 [facility] MCHC (RBC) [Mass/Vol] 32.2 g/dL 32-36 [facility] Nucleated RBC/100 WBC (Bld) [Ratio] 0 % 0-5 [facility] Platelet mean volume (Bld) [Entitic vol] 10.9 fL 6.2-12.0 [facility] Platelets (Bld) [#/Vol] 223 10*3/uL 150-450 [facility] No Panel InformationOrdered By: Elina Chávez on 01-11-2024 Estimated GFR (MDRD) Amer 159 mL/min >60 [facility] Comment on above: GFR Calc Estimated GFR (MDRD) Non-Af Amer 132 mL/min >60 [facility] Comment on above: Non- GFR Calc VLDL Cholesterol 12 mg/dL 5-40 [facility] RBC Auto (Bld) [#/Vol]Ordere d By: Elina Chávez on 01-11-2024 RBC (Bld) [#/Vol] 5.67 10*6/uL 4.6-6.2 [facility] Serum or plasma calcium cristina urement (mass/volume)Ordered By: Elina Chávez on 01-11-2024 Calcium [Mass/Vol] 8.8 mg/dL 8.5-10.1 [facility] Serum or plasma creatinine m easurement (mass/volume)Ordered By: Elina Chávez on 01-11-2024 Creatinine [Mass/Vol] 0.70 mg/dL 0.70-1.30 [facility] Comment on above: The validity of the calculated GFR & GFRAA in patients over 70 years has not been determined. Clinical correlation is essential. Serum or plasma oxcarbazepin e measurement (mass/volume)Ordered By: Elina Chávez on 01-11-2024 OXcarbazepine [Mass/Vol] 22 ug/mL 10-35 [facility] Comment on above: This test was develo ped and its performance characteristicsdetermined by [employer]. It has not been cleared orapproved by the Food and Drug Administration. Detection Limit = 1Performed at: [facility] [address] [id number] Director: Debby Cruz MD, Phone: [phone] Serum or plasma urea nitroge n measurement (mass/volume)Ordered By: Elina Chávez on 01-11-2024 Urea nitrogen [Mass/Vol] 17 mg/dL 7-18 [facility] Thin prep Papanicolaou smear with manual screeningOrdered By: Elina Chávez on 01-11-2024 Thin prep Papanicolaou smear with manual screening 3.6 g/dL 3.2-5.0 [facility] Thin prep Papanicolaou smear with manual screening 13 U/L 15-37 [facility] Thin prep Papanicolaou smear with manual screening 1 5-15 [facility] Laboratory - Microbiology an d Antimicrobial susceptibilityOrdered By: Jovita Contreras on 01-07-2024 SARS-CoV-2 (COVID-19) RNA MEME+probe Ql (Unsp spec) [facility] Absolute lymphocyte countOrd ered By: Evaristo Junior on 12-21-2023 Lymphocytes Auto (Unsp spec) [#/Vol] 1.26 10*3/uL 0.83-4.51 [facility] Automated lymphocyte count a s percentage of total leukocytesOrdered By: Evaristo Pacheco on 12-21-2023 Lymphocytes/100 WBC Auto (Unsp spec) 19.0 % 19-41 [facility] Basophil percentageOrdered B y: Evaristo Pacheco on 12-21-2023 Basophils/100 WBC (Bld) 0.9 % 0-1 [facility] Bilirubin [Mass/Vol] 0.30 mg/dL 0.20-1.00 [facility] Comment on above: For patients on eltr ombopag therapy, use of Dimension [place] TBIL is not recommended. Chloride [Moles/Vol] 105 mmol/L 98-107 [facility] Eosinophils/100 WBC (Bld) 3.2 % 0-5 [facility] Glucose [Mass/Vol] 143 mg/dL 74-106 [facility] Comment on above: Fasting Glucose resu lt greater than or equal to 126 mg/dL suggests DIABETES MELLITUS per A.D.A. criteria. Hemoglobin (Bld) [Mass/Vol] 15.6 g/dL 13.0-16.5 [facility] Monocytes/100 WBC (Bld) 8.2 % 0-10 [facility] Neutrophils (Bld) [#/Vol] 4.5 10*3/uL 2.0-7.7 [facility] Neutrophils/100 WBC (Bld) 68.4 % 47-70 [facility] Potassium [Moles/Vol] 4.3 mmol/L 3.5-5.1 [facility] Protein [Mass/Vol] 7.1 g/dL 6.4-8.2 [facility] Sodium [Moles/Vol] 138 mmol/L 136-145 [facility] WBC (Bld) [#/Vol] 6.6 10*3/uL 4.4-11.0 [facility] Blood manual differential co mment interpretation (narrative result)Ordered By: Evaristo Pacheco on 12-21-2023 Manual differential comment Hood (Bld) [Interp] SCANNED [facility] Determination of erythrocyte mean corpuscular volume (MCV)Ordered By: Evaristo Pacheco on 12-21-2023 MCV (RBC) [Entitic vol] 82.6 fL 80-94 [facility] Direct bilirubinOrdered By: Evaristo Pacheco on 12-21-2023 Bilirubin.direct [Mass/Vol] 0.09 mg/dL 0.00-0.30 [facility] Erythrocyte distribution wid th ratioOrdered By: Evaristo Pacheco on 12-21-2023 Erythrocyte distribution width (RBC) [Ratio] 12.5 % 11.6-14.6 [facility] Erythrocyte distribution wid th standard deviationOrdered By: Evaristo Pacheco on 12-21-2023 Erythrocyte distribution width (RBC) [Entitic vol] 37.6 fL 35.1-43.9 [facility] Hematocrit Auto (Bld) [Volum e fraction]Ordered By: Evaristo Pacheco on 12-21-2023 Hematocrit (Bld) [Volume fraction] 47.4 % 40-54 [facility] Immature granulocytes/100 WB C Auto (Bld)Ordered By: Evaristo Pacheco on 12-21-2023 Immature granulocytes/100 WBC (Bld) 0.300 % 0.0-0.9 [facility] Comment on above: IG% - Immature Granu locytes (promyelocytes, myelocytes and metamyelocytes) > 1% indicates that a LEFT SHIFT is Present. Laboratory - Chemistry and C hemistry - challengeOrdered By: Evaristo Pacheco on 12-21-2023 ALP [Catalytic activity/Vol] 137 U/L 45-117 [facility] ALT [Catalytic activity/Vol] 24 U/L 16-61 [facility] CO2 [Moles/Vol] 30.0 mmol/L 21.0-32.0 [facility] Globulin (S) [Mass/Vol] 3.4 g/dL 2.2-4.2 [facility] Lipase [Catalytic activity/Vol] 18 U/L 13-75 [facility] Comment on above: Please note:LIPASE r evised reference range effective 23. New Lipase methodology. Expected to produce lower values than the previous assay method. NEW Reference Range: 13 - 75 U/L Urea nitrogen/Creatinine [Mass ratio] 14.5 mg/mg 10-20 [facility] Laboratory - Hematology and Cell countsOrdered By: Evaristo Pacheco on 12-21-2023 MCH (RBC) [Entitic mass] 27.2 pg 27.0-32.0 [facility] MCHC (RBC) [Mass/Vol] 32.9 g/dL 32-36 [facility] Nucleated RBC/100 WBC (Bld) [Ratio] 0 % 0-5 [facility] Platelets (Bld) [#/Vol] 198 10*3/uL 150-450 [facility] No Panel InformationOrdered By: Evaristo Pacheco on 12-21-2023 Estimated Creatinine Clearance Calc 104.84 ml/min [facility] Estimated GFR (MDRD) Amer 144 mL/min >60 [facility] Comment on above: GFR Calc Estimated GFR (MDRD) Non-Af Amer 119 mL/min >60 [facility] Comment on above: Non- GFR Calc Platelet mean volume Adrián-Ec ker (Bld) [Entitic vol]Ordered By: Evaristo Pacheco on 12-21-2023 Platelet mean volume (Bld) [Entitic vol] 10.7 fL 6.2-12.0 [facility] RBC Auto (Bld) [#/Vol]Ordere d By: Evaristo Pacheco on 12-21-2023 RBC (Bld) [#/Vol] 5.74 10*6/uL 4.6-6.2 [facility] Serum or plasma calcium cristina urement (mass/volume)Ordered By: Evaristo Pacheco on 12-21-2023 Calcium [Mass/Vol] 8.9 mg/dL 8.5-10.1 [facility] Serum or plasma creatinine m easurement (mass/volume)Ordered By: Evaristo Pacheco on 12-21-2023 Creatinine [Mass/Vol] 0.76 mg/dL 0.70-1.30 [facility] Comment on above: The validity of the calculated GFR & GFRAA in patients over 70 years has not been determined. Clinical correlation is essential. Serum or plasma urea nitroge n measurement (mass/volume)Ordered By: Evaristo Pacheco on 12-21-2023 Urea nitrogen [Mass/Vol] 11 mg/dL 7-18 [facility] Thin prep Papanicolaou smear with manual screeningOrdered By: Evaristo Pacheco on 12-21-2023 Thin prep Papanicolaou smear with manual screening 3.7 g/dL 3.2-5.0 [facility] Thin prep Papanicolaou smear with manual screening 7 U/L 15-37 [facility] Thin prep Papanicolaou smear with manual screening 3 5-15 [facility] Hepatitis A Antibody, Totalo n 12-16-2023 HAV Ab Ql (S) Negative Negative [facility] Interpretation and review of laboratory results Normal [facility] Test performed using Ella MIGUEL immunoassay system [facility] HIV 1/2 Screen (4th Generati on)on 09-11-2023 HIV 1+2 Ab+HIV1 p24 Ag IA Ql Negative Negative [facility] This assay screens f or the presence of HIV-1, HIV-2 antibodies and for the presence of HIV-1 antigen. Test performed using Ell[employer] MIGUEL immunoassay system [facility] Hepatitis B Core Antibody, T otalon 09-11-2023 HBV core Ab Ql (S) Negative Negative [facility] Hepatitis B Surface Antibody on 09-11-2023 HBV surface Ab Ql (S) Negative Negative [facility] Hepatitis B Surface Antigeno n 09-11-2023 HBV surface Ag Ql (S) Negative Negative [facility] No Panel Informationon 09-11 Interpretation and review of laboratory results Normal [facility] Test performed using Ell[employer] MIGUEL immunoassay system [facility] Creatinine [Mass/Vol]on 07-17 GFR/1.73 sq M.predicted CKD-EPI (S/P/Bld) [Vol rate/Area] 113 - PINF [facility] Comment on above: Estimated GFR was ca lculated using the 2020 CKD-EPI creatinine equation. [facility] Laborator y Services has implemented the eGFR calculation approach that does not have a coefficient for race that conforms to the NKF-ASN Task Force Recommendations. [facility] ESR Westergren method (Bld) [Velocity]on 07-30-2023 ESR (Bld) [Velocity] 8 mm/h [facility] Interpretation and review of laboratory results Normal [facility] Hepatic function 2000 panelo n 07-30-2023 Albumin [Mass/Vol] 3.9 g/dL 3.2 - 5.2 g/dL [facility] ALP [Catalytic activity/Vol] 115 U/L 40 - 150 U/L [facility] ALT [Catalytic activity/Vol] 26 U/L 14 - 65 U/L [facility] AST [Catalytic activity/Vol] 15 U/L 0-50 U/L [facility] Bilirubin [Mass/Vol] 0.6 mg/dL 0.0 - 1 .3 mg/dL [facility] Bilirubin.conjugated [Mass/Vol] 0.2 mg/dL 0.0 - 0.4 mg/dL [facility] Protein [Mass/Vol] 7.5 g/dL 6.0 - 8.0 g/dL [facility] Laboratory - Chemistry and C hemistry - challengeon 07-30-2023 Creatinine [Mass/Vol] 0.80 mg/dL 0.50 - 1.30 mg/dL [facility] CRP [Mass/Vol] 5.8 mg/L NINF - 10.0 mg/L [facility] No Panel Informationon 07-30 Interpretation and review of laboratory results Normal [facility] No acute osseous abnormality or significant degenerative changes of the left hand. Workstation ID: [id number] (Former[employer]) EXAMINATION: XR HAND LEFT 3+ VIEWS (STANDARD) [...] No periarticular erosive changes. Unremarkable soft tissues. [employer]) Ruth Sue MD - 07/30/2023 EXAMINATION: XR [...] of the left hand. Workstation ID: [id number] [facility] No acute osseous abnormality or significant [...] of the right foot. Workstation ID: [id number] [facility] No acute osseous abnormality or significant [...] preserved. No periarticular erosive changes.Unremarkable soft tissues. [employer] ([employer]) Ruth Sue MD - 07/30/2023 EXAMINATION: XR [...] of the right hand. Workstation ID: [id number] [facility] No acute osseous abnormality of the left foot. Workstation ID: [id number] ([employer]) EXAMINATION: XR FOOT LEFT 3+ VIEWS (STANDARD) [...] joint spaces are preserved. Unremarkable soft tissues. [employer] RIS Ruth Sue MD - 07/30/2023 EXAMINATION: [...] of the left foot. Workstation ID: [id number] [facility] Radiology Study observation (narrative) [facility] Radiology Study observation (narrative) [facility] Radiology Study observation (narrative) [facility] Panel InformationOrdered By: Ruth Salcedo on 07-30-2023 [facility] Work Phone: XR CHEST AP/PA AND LATon [...] on ThuJul 30, 2023 10:05:51 AM EDT [facility] Comment on above: Order Comment: Injur y/Trauma [...] ThuJul 30, 2023 10:02:[address] [facility] Comment on above: Order Comment: Injur [...] AM EDT Finalized by: RUTH SUE on [facility] Jul 30, 2023 10:05:18 AM EDT [facility] Comment on above: Order Comment: Injur y/Trauma [...] Mally Jul 30, 2023 10:07:09 AM EDT [facility] Comment on above: Order Comment: Injur y/Trauma [...] on ThuJul 30, 2023 10:03:58 AM EDT [facility] Comment on above: Order Comment: Injur y/Trauma or Illness?:Illness/Other How long have you had these symptoms (acute/chronic)?:Acute Reason for exam?:joint pain, please eval for inflammatory arthritis History of cancer?:U Surgeries, chemotherapy, or radiation?:U Type of Exam?:Initial Additional signs and symptoms?: Absolute lymphocyte countOrd ered By: Josselyn Galindo on 06-17-2023 Lymphocytes Auto (Unsp spec) [#/Vol] 1.02 10*3/uL 0.83-4.51 [facility] Basophil percentageOrdered B y: Josselyn Galindo on 06-17-2023 Basophils/100 WBC (Bld) 0.9 % 0-1 [facility] Bilirubin [Mass/Vol] 0.20 mg/dL 0.20-1.[address] [facility] Comment on above: For patients on eltr ombopag therapy, use of [employer] [place] TBIL is not recommended. Chloride [Moles/Vol] 110 mmol/L 98-107 [facility] Cholesterol [Mass/Vol] 132 mg/dL <200 [facility] Comment on above: <200 mg/dL Desirable 200-240 mg/dL Borderline >240 mg/dL High Risk Eosinophils/100 WBC (Bld) 3.9 % 0-5 [facility] Glucose [Mass/Vol] 108 mg/dL 74-106 [facility] Comment on above: Fasting Glucose resu lt from 100 to 125 mg/dL suggests IMPAIRED HOMEOSTASIS per A.D.A. criteria. Neutrophils (Bld) [#/Vol] 3.5 10*3/uL 2.0-7.7 [facility] Neutrophils/100 WBC (Bld) 65.8 % 47-70 [facility] Potassium [Moles/Vol] 4.1 mmol/L 3.5-5.1 [facility] Protein [Mass/Vol] 7.0 g/dL 6.4-8.2 [facility] Sodium [Moles/Vol] 141 mmol/L 136-145 [facility] Triglyceride [Mass/Vol] 105 mg/dL <199 [facility] Comment on above: The drugs N-Acetylcy steine and Metamizole may falsely depress this assay.Serum Triglycerides Reference Interval Normal <150 mg/dL Borderline high 150 - 199 mg/dL High 200 - 499 mg/dL Very High > or = 500 mg/dL WBC (Bld) [#/Vol] 5.3 10*3/uL 4.4-11.0 [facility] Blood erythrocytes count (nu mber/volume)Ordered By: Josselyn Galindo on 06-17-2023 RBC (Bld) [#/Vol] 5.45 10*6/uL 4.6-6.2 [facility] Blood hemoglobin measurement (mass/volume)Ordered By: Josselyn Galindo on 06-17-2023 Hemoglobin (Bld) [Mass/Vol] 15.9 g/dL 13.0-16.5 [facility] Blood lymphocytes/100 leukoc ytesOrdered By: Josselyn Galindo on 06-17-2023 Lymphocytes/100 WBC (Bld) 19.1 % 19-41 [facility] Blood monocytes/100 leukocyt esOrdered By: Josselyn Galindo on 06-17-2023 Monocytes/100 WBC (Bld) 9.9 % 0-10 [facility] Blood platelet mean volumeOr dered By: Josselyn Galindo on 06-17-2023 Platelet mean volume (Bld) [Entitic vol] 10.6 fL 6.2-12.0 [facility] Determination of erythrocyte mean corpuscular volume (MCV)Ordered By: Josselyn Galindo on 06-17-2023 MCV (RBC) [Entitic vol] 90.6 fL 80-94 [facility] Hematocrit Auto (Bld) [Volum e fraction]Ordered By: Josselyn Galindo on 06-17-2023 Hematocrit (Bld) [Volume fraction] 49.4 % 40-54 [facility] Laboratory - Chemistry and C hemistry - challengeOrdered By: Josselyn Galindo on 06-17-2023 ALP [Catalytic activity/Vol] 98 U/L 45-117 [facility] ALT [Catalytic activity/Vol] 19 U/L 16-61 [facility] CO2 [Moles/Vol] 27.0 mmol/L 21.0-32.0 [facility] Globulin (S) [Mass/Vol] 3.8 g/dL 2.2-4.2 [facility] Urea nitrogen/Creatinine [Mass ratio] 14.8 mg/mg 10-20 [facility] Laboratory - Hematology and Cell countsOrdered By: Josselyn Galindo on 06-17-2023 Erythrocyte distribution width (RBC) [Entitic vol] 43.2 fL 35.1-43.9 [facility] Erythrocyte distribution width (RBC) [Ratio] 13.1 % 11.6-14.6 [facility] Immature granulocytes/100 WBC (Bld) 0.400 % 0.0-0.9 [facility] Comment on above: IG% - Immature Granu locytes (promyelocytes, myelocytes and metamyelocytes) > 1% indicates that a LEFT SHIFT is Present. MCH (RBC) [Entitic mass] 29.2 pg 27.0-32.0 [facility] Nucleated RBC/100 WBC (Bld) [Ratio] 0 % 0-5 [facility] MCHC Auto (RBC) [Mass/Vol]Or dered By: Josselyn Galindo on 06-17-2023 MCHC (RBC) [Mass/Vol] 32.2 g/dL 32-36 [facility] No Panel InformationOrdered By: Josselyn Galindo on 06-17-2023 Estimated GFR (MDRD) Amer 166 mL/min >60 [facility] Comment on above: GFR Calc Estimated GFR (MDRD) Non-Af Amer 137 mL/min >60 [facility] Comment on above: Non- GFR Calc Prostate Specific Antigen Screen 0.40 ng/mL 0.00-4.00 [facility] Comment on above: This test was perfor med using the TPSA assay method for [employer] system. Values obtained with differentassay methods cannot be used interchangably.When changing PSA assays in the course of monitoring apatient, additional sequential testing should be carriedout to confirm baseline values. Thyroid Stimulating Hormone (TSH) 0.66 uIU/mL 0.358-3.74 [facility] Platelets bldOrdered By: Omar Galindo on 06-17-2023 Platelets (Bld) [#/Vol] 191 10*3/uL 150-450 [facility] Serum or plasma albumin cristina urement (mass/volume)Ordered By: Josselyn Galindo on 06-17-2023 Albumin [Mass/Vol] 3.2 g/dL 3.2-5.0 [facility] Serum or plasma albumin/glob ulin mass ratioOrdered By: Josselyn Galindo on 06-17-2023 Albumin/Globulin [Mass ratio] 0.8 {ratio} 0.9-2.4 [facility] Serum or plasma calcium cristina urement (mass/volume)Ordered By: Josselyn Galindo on 06-17-2023 Calcium [Mass/Vol] 8.3 mg/dL 8.5-10.1 [facility] Serum or plasma cholesterol in HDL measurement (mass/volume)Ordered By: Josselyn Galindo on 06-17-2023 Cholesterol in HDL [Mass/Vol] 37 mg/dL >40 [facility] Comment on above: The drugs N-Acetylcy steine and Metamizole may falsely depress this assay. Reference Range HDL <40 mg/dL Low HDL Cholesterol HDL >or= 60 mg/dL High HDL Cholesterol Serum or plasma cholesterol in VLDL measurement (mass/volume)Ordered By: Josselyn Galindo on 06-17-2023 Cholesterol in VLDL [Mass/Vol] 21 mg/dL 5-40 [facility] Serum or plasma creatinine m easurement (mass/volume)Ordered By: Josselyn Galindo on 06-17-2023 Creatinine [Mass/Vol] 0.68 mg/dL 0.70-1.30 [facility] Comment on above: The validity of the calculated GFR & GFRAA in patients over 70 years has not been determined. Clinical correlation is essential. Serum or plasma low density lipoprotein (LDL) cholesterol measurement (mass/volume)Ordered By: Josselyn Galindo on 06-17-2023 Cholesterol in LDL [Mass/Vol] 74 mg/dL 0-130 [facility] Serum or plasma urea nitroge n measurement (mass/volume)Ordered By: Josselyn Galindo on 06-17-2023 Urea nitrogen [Mass/Vol] 10 mg/dL 7-18 [facility] Thin prep Papanicolaou smear with manual screeningOrdered By: Josselyn Galindo on 06-17-2023 Thin prep Papanicolaou smear with manual screening 17 U/L 15-37 [facility] Thin prep Papanicolaou smear with manual screening 4 5-15 [facility] Whole blood hemoglobin A1c/t otal hemoglobin ratio (mass fraction)Ordered By: Josselyn Galindo on 06-17-2023 HbA1c (Bld) [Mass fraction] 5.1 % 3.8-5.6 [facility] Comment on above: Normal < 5.7 % Predi abetic 5.7 - 6.4 % Diabetic >or= 6.5 % Please note range changes. 06-15-2023 36 Manuela is calling [employer] in for an update. She was advised the office is scheduling into next year and is no longer needing to schedule the patient. 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 Archibald Practice: [facility] Rheumatology Chief Complaint/Reason for Call: Manuela [...] hours to return their call: No Normal [facility] Absolute lymphocyte countOrd ered By: Keny Guevara on 03-27-2023 Lymphocytes Auto (Unsp spec) [#/Vol] 1.71 10*3/uL 0.83-4.51 [facility] Basophil percentageOrdered B y: Keny Guevara on 03-27-2023 Basophils/100 WBC (Bld) 0.6 % 0-1 [facility] Bilirubin [Mass/Vol] 0.60 mg/dL 0.20-1.00 [facility] Comment on above: For patients on eltr ombopag therapy, use of [employer] [place] TBIL is not recommended. Chloride [Moles/Vol] 101 mmol/L 98-107 [facility] Eosinophils/100 WBC (Bld) 0.6 % 0-5 [facility] Glucose [Mass/Vol] 119 mg/dL 74-106 [facility] Comment on above: Fasting Glucose resu lt from 100 to 125 mg/dL suggests IMPAIRED HOMEOSTASIS per A.D.A. criteria. Neutrophils (Bld) [#/Vol] 11.2 10*3/uL 2.0-7.7 [facility] Neutrophils/100 WBC (Bld) 77.7 % 47-70 [facility] Potassium [Moles/Vol] 3.7 mmol/L 3.5-5.1 [facility] Protein [Mass/Vol] 7.4 g/dL 6.4-8.2 [facility] Sodium [Moles/Vol] 137 mmol/L 136-145 [facility] WBC (Bld) [#/Vol] 14.4 10*3/uL 4.4-11.0 [facility] Blood erythrocytes count (nu mber/volume)Ordered By: Keny Guevara on 03-27-2023 RBC (Bld) [#/Vol] 6.03 10*6/uL 4.6-6.2 [facility] Blood hemoglobin measurement (mass/volume)Ordered By: Keny Guevara on 03-27-2023 Hemoglobin (Bld) [Mass/Vol] 17.9 g/dL 13.0-16.5 [facility] Blood lymphocytes/100 leukoc ytesOrdered By: Keny Guevara on 03-27-2023 Lymphocytes/100 WBC (Bld) 11.9 % 19-41 [facility] Blood monocytes/100 leukocyt esOrdered By: Keny Guevara on 03-27-2023 Monocytes/100 WBC (Bld) 8.6 % 0-10 [facility] Blood platelet mean volumeOr dered By: Keny Guevara on 03-27-2023 Platelet mean volume (Bld) [Entitic vol] 10.5 fL 6.2-12.0 [facility] Determination of erythrocyte mean corpuscular volume (MCV)Ordered By: Keny Guevara on 03-27-2023 MCV (RBC) [Entitic vol] 89.6 fL 80-94 [facility] Erythrocyte sedimentation ra teOrdered By: Keny Guevara on 03-27-2023 ESR (Bld) [Velocity] 9 mm/h 0-20 [facility] Hematocrit Auto (Bld) [Volum e fraction]Ordered By: Keny Guevara on 03-27-2023 Hematocrit (Bld) [Volume fraction] 54.0 % 40-54 [facility] Laboratory - Chemistry and C hemistry - challengeOrdered By: Keny Guevara on 03-27-2023 ALP [Catalytic activity/Vol] 91 U/L 45-117 [facility] ALT [Catalytic activity/Vol] 21 U/L 16-61 [facility] CO2 [Moles/Vol] 29.0 mmol/L 21.0-32.0 [facility] Globulin (S) [Mass/Vol] 3.6 g/dL 2.2-4.2 [facility] Urea nitrogen/Creatinine [Mass ratio] 19.0 mg/mg 10-20 [facility] Laboratory - Hematology and Cell countsOrdered By: Keny Guevara on 03-27-2023 Erythrocyte distribution width (RBC) [Entitic vol] 43.5 fL 35.1-43.9 [facility] Erythrocyte distribution width (RBC) [Ratio] 13.3 % 11.6-14.6 [facility] Immature granulocytes/100 WBC (Bld) 0.600 % 0.0-0.9 [facility] Comment on above: IG% - Immature Granu locytes (promyelocytes, myelocytes and metamyelocytes) > 1% indicates that a LEFT SHIFT is Present. MCH (RBC) [Entitic mass] 29.7 pg 27.0-32.0 [facility] Nucleated RBC/100 WBC (Bld) [Ratio] 0 % 0-5 [facility] MCHC Auto (RBC) [Mass/Vol]Or dered By: Keny Guevara on 03-27-2023 MCHC (RBC) [Mass/Vol] 33.1 g/dL 32-36 [facility] No Panel InformationOrdered By: Keny Guevara on 03-27-2023 Endomysial IgA Antibody Negative Negative [facility] Estimated GFR (MDRD) Amer 139 mL/min >60 [facility] Comment on above: GFR Calc Estimated GFR (MDRD) Non-Af Amer 115 mL/min >60 [facility] Comment on above: Non- GFR Calc Platelets bldOrdered By: Vitor Guevara on 03-27-2023 Platelets (Bld) [#/Vol] 253 10*3/uL 150-450 [facility] Serum IgA measurement (units /volume)Ordered By: Keny Guevara on 03-27-2023 IgA Qn (S) 211 mg/dL 90-386 [facility] Comment on above: Performed at: [address] [id number] Director: Carlos Eduardo Teague PhD, Phone: [phone] Serum or plasma C reactive p rotein measurement (mass/volume)Ordered By: Keny Guevara on 03-27-2023 CRP [Mass/Vol] 22.40 mg/L 0.0-3.0 [facility] Comment on above: C-Reactive Protein ( CRP) provides useful information for thediagnosis, therapy and monitoring of inflammatory processesand associated diseases. For the evaluation of Relative Riskfor Cardiovascular Disease, a High Sensitivity CRP (HSCRP)should be ordered. Serum or plasma albumin cristina urement (mass/volume)Ordered By: Keny Guevara on 03-27-2023 Albumin [Mass/Vol] 3.8 g/dL 3.2-5.0 [facility] Serum or plasma albumin/glob ulin mass ratioOrdered By: Keny Guevara on 03-27-2023 Albumin/Globulin [Mass ratio] 1.1 {ratio} 0.9-2.4 [facility] Serum or plasma calcium cristina urement (mass/volume)Ordered By: Keny Guevara on 03-27-2023 Calcium [Mass/Vol] 9.2 mg/dL 8.5-10.1 [facility] Serum or plasma creatinine m easurement (mass/volume)Ordered By: Keny Guevara on 03-27-2023 Creatinine [Mass/Vol] 0.79 mg/dL 0.70-1.30 [facility] Comment on above: The validity of the calculated GFR & GFRAA in patients over 70 years has not been determined. Clinical correlation is essential. Serum or plasma urea nitroge n measurement (mass/volume)Ordered By: Keny Guevara on 03-27-2023 Urea nitrogen [Mass/Vol] 15 mg/dL 7-18 [facility] Serum tissue transglutaminas e IgA antibody assay (units/volume)Ordered By: Keny Guevara on 03-27-2023 tTG IgA Qn (S) <2 U/mL 0-3 [facility] Comment on above: Negative 0 [...] smear with manual screening 13 U/L 15-37 [facility] Thin prep Papanicolaou smear with manual screening 7 5-15 [facility] Absolute lymphocyte countOrd ered By: Keny Guevara on 11-27-2022 Lymphocytes Auto (Unsp spec) [#/Vol] 1.18 10*3/uL 0.83-4.51 [facility] Basophil percentageOrdered B y: Keny Guevara on 11-27-2022 Basophils/100 WBC (Bld) 0.3 % 0-1 [facility] Bilirubin [Mass/Vol] 0.40 mg/dL 0.20-1.00 [facility] Comment on above: For patients on eltr ombopag therapy, use of [employer] [place] TBIL is not recommended. Chloride [Moles/Vol] 110 mmol/L 98-107 [facility] Eosinophils/100 WBC (Bld) 1.6 % 0-5 [facility] Glucose [Mass/Vol] 121 mg/dL 74-106 [facility] Comment on above: Fasting Glucose resu lt from 100 to 125 mg/dL suggests IMPAIRED HOMEOSTASIS per A.D.A. criteria. Neutrophils (Bld) [#/Vol] 7.6 10*3/uL 2.0-7.7 [facility] Neutrophils/100 WBC (Bld) 78.0 % 47-70 [facility] Potassium [Moles/Vol] 4.1 mmol/L 3.5-5.1 [facility] Protein [Mass/Vol] 7.1 g/dL 6.4-8.2 [facility] Sodium [Moles/Vol] 141 mmol/L 136-145 [facility] WBC (Bld) [#/Vol] 9.8 10*3/uL 4.4-11.0 [facility] Blood erythrocytes count (nu mber/volume)Ordered By: Keny Guevara on 11-27-2022 RBC (Bld) [#/Vol] 5.38 10*6/uL 4.6-6.2 [facility] Blood hemoglobin measurement (mass/volume)Ordered By: Keny Guevara on 11-27-2022 Hemoglobin (Bld) [Mass/Vol] 15.6 g/dL 13.0-16.5 [facility] Blood lymphocytes/100 leukoc ytesOrdered By: Keny Guevara on 11-27-2022 Lymphocytes/100 WBC (Bld) 12.1 % 19-41 [facility] Blood monocytes/100 leukocyt esOrdered By: Keny Guevara on 11-27-2022 Monocytes/100 WBC (Bld) 7.9 % 0-10 [facility] Blood platelet mean volumeOr dered By: Keny Guevara on 11-27-2022 Platelet mean volume (Bld) [Entitic vol] 11.1 fL 6.2-12.0 [facility] Determination of erythrocyte mean corpuscular volume (MCV)Ordered By: Keny Guevara on 11-27-2022 MCV (RBC) [Entitic vol] 86.6 fL 80-94 [facility] Erythrocyte sedimentation ra teOrdered By: Keny Guevara on 11-27-2022 ESR (Bld) [Velocity] 16 mm/h 0-20 [facility] Hematocrit Auto (Bld) [Volum e fraction]Ordered By: Keny Guevara on 11-27-2022 Hematocrit (Bld) [Volume fraction] 46.6 % 40-54 [facility] Laboratory - Chemistry and C hemistry - challengeOrdered By: Keny Guevara on 11-27-2022 ALP [Catalytic activity/Vol] 93 U/L 45-117 [facility] ALT [Catalytic activity/Vol] 16 U/L 16-61 [facility] CO2 [Moles/Vol] 30.0 mmol/L 21.0-32.0 [facility] Globulin (S) [Mass/Vol] 3.5 g/dL 2.2-4.2 [facility] Urea nitrogen/Creatinine [Mass ratio] 14.2 mg/mg 10-20 [facility] Laboratory - Hematology and Cell countsOrdered By: Keny Guevara on 11-27-2022 Erythrocyte distribution width (RBC) [Entitic vol] 41.1 fL 35.1-43.9 [facility] Erythrocyte distribution width (RBC) [Ratio] 13.1 % 11.6-14.6 [facility] Immature granulocytes/100 WBC (Bld) 0.100 % 0.0-0.9 [facility] Comment on above: IG% - Immature Granu locytes (promyelocytes, myelocytes and metamyelocytes) > 1% indicates that a LEFT SHIFT is Present. MCH (RBC) [Entitic mass] 29.0 pg 27.0-32.0 [facility] Nucleated RBC/100 W[facility] (Bld) [Ratio] 0 % 0-5 [facility] ([facility] [Mass/Vol]Or dered By: Keny Guevara on 11-27-2022 MCHC (RBC) [Mass/Vol] 33.5 g/dL 32-36 [facility] No Panel InformationOrdered By: Keny Guevara on 11-27-2022 Endomysial IgA Antibody Negative Negative [facility] Estimated GFR (MDRD) Amer 159 mL/min >60 [facility] Comment on above: GFR Calc Estimated GFR (MDRD) Non-Af Amer 131 mL/min >60 [facility] Comment on above: Non- GFR Calc Miscellaneous Test See comment [facility] Comment on above: TEST RESULT LIMITSTh iopurine [...] developed and its performance characteristics determined by [employer]. It has not been cleared or approved by the Food and Drug Administration. This case has been reviewed, approved, interpreted and electronically signed by Jose Aguilar, PhD, [facility].Methodology Enzymatic Endpoint/Liquid Chromatography - Tandem Mass Spectrometry (LC-MS/MS) ____ TESTING PERFORMED AT [facility]. ORIGINAL REPORT ON FILE IN LAB CONTAINS ADDITIONAL TEST SITE INFORMATION. Platelets bldOrdered By: Vitor Guevara on 11-27-2022 Platelets (Bld) [#/Vol] 204 10*3/uL 150-450 [facility] Serum IgA measurement (units /volume)Ordered By: Keny Guevara on 11-27-2022 IgA Qn (S) 203 mg/dL 90-386 [facility] Comment on above: Performed at: [place] [id number] Director: Carlos Eduardo Teague PhD, Phone: [phone] Serum or plasma C reactive p rotein measurement (mass/volume)Ordered By: Keny Guevara on 11-27-2022 CRP [Mass/Vol] 4.83 mg/L 0.0-3.0 [facility] Comment on above: C-Reactive Protein ( CRP) provides useful information for thediagnosis, therapy and monitoring of inflammatory processesand associated diseases. For the evaluation of Relative Riskfor Cardiovascular Disease, a High Sensitivity CRP (HSCRP)should be ordered. Serum or plasma albumin cristina urement (mass/volume)Ordered By: Keny Guevara on 11-27-2022 Albumin [Mass/Vol] 3.6 g/dL 3.2-5.0 [facility] Serum or plasma albumin/glob ulin mass ratioOrdered By: Keny Guevara on 11-27-2022 Albumin/Globulin [Mass ratio] 1.0 {ratio} 0.9-2.4 [facility] Serum or plasma calcium cristina urement (mass/volume)Ordered By: Keny Guevara on 11-27-2022 Calcium [Mass/Vol] 8.7 mg/dL 8.5-10.1 [facility] Serum or plasma creatinine m easurement (mass/volume)Ordered By: Keny Guevara on 11-27-2022 Creatinine [Mass/Vol] 0.70 mg/dL 0.70-1.30 [facility] Comment on above: The validity of the calculated GFR & GFRAA in patients over 70 years has not been determined. Clinical correlation is essential. Serum or plasma urea nitroge n measurement (mass/volume)Ordered By: Keny Guevara on 11-27-2022 Urea nitrogen [Mass/Vol] 10 mg/dL 7-18 [facility] Serum tissue transglutaminas e IgA antibody assay (units/volume)Ordered By: Keny Guevara on 11-27-2022 tTG IgA Qn (S) <2 U/mL 0-3 [facility] Comment on above: Negative 0 [...] smear with manual screening 10 U/L 15-37 [facility] Thin prep Papanicolaou smear with manual screening 1 5-15 [facility] Absolute lymphocyte countOrd ered By: Keny Guevara on 11-13-2022 Lymphocytes Auto (Unsp spec) [#/Vol] 3.14 10*3/uL 0.83-4.51 [facility] Basophil percentageOrdered B y: Keny Guevara on 11-13-2022 Basophils/100 WBC (Bld) 0.3 % 0-1 [facility] Bilirubin [Mass/Vol] 0.20 mg/dL 0.20-1.00 [facility] Comment on above: For patients on eltr ombopag therapy, use of [employer] [place] TBIL is not recommended. Chloride [Moles/Vol] 105 mmol/L 98-107 [facility] Eosinophils/100 WBC (Bld) 1.8 % 0-5 [facility] Glucose [Mass/Vol] 86 mg/dL 74-106 [facility] Neutrophils (Bld) [#/Vol] 8.4 10*3/uL 2.0-7.7 [facility] Neutrophils/100 WBC (Bld) 64.5 % 47-70 [facility] Potassium [Moles/Vol] 4.2 mmol/L 3.5-5.1 [facility] Protein [Mass/Vol] 6.7 g/dL 6.4-8.2 [facility] Sodium [Moles/Vol] 138 mmol/L 136-145 [facility] WBC (Bld) [#/Vol] 13.0 10*3/uL 4.4-11.0 [facility] Blood erythrocytes count (nu mber/volume)Ordered By: Keny Guevara on 11-13-2022 RBC (Bld) [#/Vol] 5.24 10*6/uL 4.6-6.2 [facility] Blood hemoglobin measurement (mass/volume)Ordered By: Keny Guevara on 11-13-2022 Hemoglobin (Bld) [Mass/Vol] 15.3 g/dL 13.0-16.5 [facility] Blood lymphocytes/100 leukoc ytesOrdered By: Keny Guevara on 11-13-2022 Lymphocytes/100 WBC (Bld) 24.2 % 19-41 [facility] Blood monocytes/100 leukocyt esOrdered By: Keny Guevara on 11-13-2022 Monocytes/100 WBC (Bld) 8.7 % 0-10 [facility] Blood platelet mean volumeOr dered By: Keny Guevara on 11-13-2022 Platelet mean volume (Bld) [Entitic vol] 10.4 fL 6.2-12.0 [facility] Determination of erythrocyte mean corpuscular volume (MCV)Ordered By: Keny Guevara on 11-13-2022 MCV (RBC) [Entitic vol] 87.8 fL 80-94 [facility] Hematocrit Auto (Bld) [Volum e fraction]Ordered By: Keny Guevara on 11-13-2022 Hematocrit (Bld) [Volume fraction] 46.0 % 40-54 [facility] Laboratory - Chemistry and C hemistry - challengeOrdered By: Keny Guevara on 11-13-2022 ALP [Catalytic activity/Vol] 65 U/L 45-117 [facility] ALT [Catalytic activity/Vol] 17 U/L 16-61 [facility] CO2 [Moles/Vol] 33.0 mmol/L 21.0-32.0 [facility] Globulin (S) [Mass/Vol] 3.4 g/dL 2.2-4.2 [facility] Urea nitrogen/Creatinine [Mass ratio] 30.5 mg/mg 10-20 [facility] Laboratory - Hematology and Cell countsOrdered By: Keny Guevara on 11-13-2022 Erythrocyte distribution width (RBC) [Entitic vol] 42.0 fL 35.1-43.9 [facility] Erythrocyte distribution width (RBC) [Ratio] 13.1 % 11.6-14.6 [facility] Immature granulocytes/100 WBC (Bld) 0.500 % 0.0-0.9 [facility] Comment on above: IG% - Immature Granu locytes (promyelocytes, myelocytes and metamyelocytes) > 1% indicates that a LEFT SHIFT is Present. MCH (RBC) [Entitic mass] 29.2 pg 27.0-32.0 [facility] Nucleated RBC/100 WBC (Bld) [Ratio] 0 % 0-5 [facility] MCHC Auto (RBC) [Mass/Vol]Or dered By: Keny Guevara on 11-13-2022 MCHC (RBC) [Mass/Vol] 33.3 g/dL 32-36 [facility] No Panel InformationOrdered By: Keny Guevara on 11-13-2022 Estimated GFR (MDRD) Amer 182 mL/min >60 [facility] Comment on above: GFR Calc Estimated GFR (MDRD) Non-Af Amer 151 mL/min >60 [facility] Comment on above: Non- GFR Calc Platelets bldOrdered By: Vitor Guevara on 11-13-2022 Platelets (Bld) [#/Vol] 224 10*3/uL 150-450 [facility] Serum or plasma albumin cristina urement (mass/volume)Ordered By: Keny Guevara on 11-13-2022 Albumin [Mass/Vol] 3.3 g/dL 3.2-5.0 [facility] Serum or plasma albumin/glob ulin mass ratioOrdered By: Keny Guevara on 11-13-2022 Albumin/Globulin [Mass ratio] 1.0 {ratio} 0.9-2.4 [facility] Serum or plasma calcium cristina urement (mass/volume)Ordered By: Keny Guevara on 11-13-2022 Calcium [Mass/Vol] 8.6 mg/dL 8.5-10.1 [facility] Serum or plasma creatinine m easurement (mass/volume)Ordered By: Keny Guevara on 11-13-2022 Creatinine [Mass/Vol] 0.62 mg/dL 0.70-1.30 [facility] Comment on above: The validity of the calculated GFR & GFRAA in patients over 70 years has not been determined. Clinical correlation is essential. Serum or plasma urea nitroge n measurement (mass/volume)Ordered By: Keny Guevara on 11-13-2022 Urea nitrogen [Mass/Vol] 19 mg/dL 7-18 [facility] Thin prep Papanicolaou smear with manual screeningOrdered By: Keny Guevara on 11-13-2022 Thin prep Papanicolaou smear with manual screening 8 U/L 15-37 [facility] Thin prep Papanicolaou smear with manual screening 0 5-15 [facility] CNPNon 11-07-2022 JADA Telephone ([facility]WSTR) ----- JOSE MCNAMARA ([id number]) 1980 M Date Time Provider Department 11/07/22 REINALDO PEREIRA During your visit today, we recorded the following information about you: Reinaldo Pereira PA-C 11/07/2022 7:20 AM Signed Please call and let patient know he did test positive for influenza A. Continue cost-mtz-avvphgh medications as needed for cough and congestion. [...] Date Reviewed: 11/06/2022 Reviewed by: Edward Powell APRN.[id number] PROGRAMMER - Fully Assessed Reason for Visit: Results [...] by CALLIE COE LPN on 11/07/22 Normal [facility] Influenza virus A and B RNA and SARS-CoV-2 (COVID-19) N gene panel MEME+probe (Resp)on 11-07-2022 FLUAV RNA MEME+probe Ql (Unsp spec) Positive Abnormal Negative for Influenza A by RT-PCR [facility] FLUBV RNA MEME+probe Ql (Unsp spec) Negative Negative for Influenza B by RT-PCR [facility] SARS-CoV-2 (COVID-19) RNA MEME+probe Ql (Resp) SARS-CoV-2 (Agent of COVID-19) Not Detected by RT-PCR or equivalent method. Not Detected [facility] CNOVon 11-06-2022 CNOV Office Visit ([facility]WSTR ) ----- JOSE MCNAMARA ([id number]) 1980 M Date Time Provider Department 11/06/22 12:[address] [facility] During your visit today, we recorded the following information about you: Temperature Pulse Respiration Blood pressure 97.9 degrees 84/minute 18/minute 102/64 Weight 58.8 kg Edward Powell APRN.[email or web address] PROGRAMMER 11/06/2022 11:53 AM Signed How to Manage [...] severe or concerning to you. Edward Powell APRN.AS400 PROGRAMMER 11/06/2022 12:09 PM Signed Subjective HPI Nontoxic-appearing male presents to urgent care with chief complaint of fever and cough. Duration of symptoms 2 days. Associated symptoms with today's chief complaint are on and off headache, muscle aches, fatigue, nonproductive cough, and sore throat. Patient stated symptoms started abruptly. Patient states they have used jnsk-tbm-bisflxg medication with some success. Patient states they [...] use all (more content not included)... Normal [facility] No Panel InformationOrdered By: Keny Friend on 09-26-2022 Miscellaneous Test See comment [facility] Comment on above: TEST RESULT LIMITSIB D [...] developed and its performance characteristics determined by [employer]. It has not been cleared or approved by the Food and Drug Administration. The FDA has determined that such clearance or approval is not necessary.Atypical pANCA Negative NegativeComments Abnormal Suggestive of Crohn's Disease. Pattern is not conclusive for disease behavior risk stratification. TESTING PERFORMED AT [facility]. ORIGINAL REPORT ON FILE IN LAB CONTAINS ADDITIONAL TEST SITE INFORMATION. No Panel Informationon 08-05 Stool Calprotectin <16 ug/g 0-120 [facility] Work Phone: Comment on above: Concentration Interp retation Follow-Up<16 - 50 ug/g Normal None>50 -120 ug/g Borderline Re-evaluate in 4-6 weeks >120 ug/g Abnormal Repeat as clinically indicatedPerformed at: [facility] [address] [id number] Director: Debby Cruz MD, Phone: [phone] Absolute lymphocyte counton 07-15-2022 Lymphocytes Auto (Unsp spec) [#/Vol] 1.68 10*3/uL 0.83-4.51 [facility] Work Phone: Albumin Elph [Mass/Vol]on Albumin [Mass/Vol] Not Reportable [facility] Work Phone: Basophil percentageon 2021 Basophil percentage < 0.2 AI 0.0-0.9 [facility] Work Phone: Basophil percentage 1.7 AI 0.0-0.9 [facility] Work Phone: Basophils/100 WBC (Bld) 0.3 % 0-1 [facility] Work Phone: Bilirubin [Mass/Vol] 0.20 mg/dL 0.20-1.00 [facility] Work Phone: Comment on above: For patients on eltr ombopag therapy, use of Dimension [place] TBIL is not recommended. Chloride [Moles/Vol] 105 mmol/L 98-107 [facility] Work Phone: Eosinophils/100 WBC (Bld) 1.7 % 0-5 [facility] Work Phone: Glucose [Mass/Vol] 88 mg/dL 74-106 [facility] Work Phone: [phone] Neutrophils (Bld) [#/Vol] 14.2 10*3/uL 2.0-7.7 [facility] Work Phone: Neutrophils/100 WBC (Bld) 81.8 % 47-70 [facility] Work Phone: Potassium [Moles/Vol] 3.9 mmol/L 3.5-5.1 [facility] Work Phone: Protein [Mass/Vol] 7.4 g/dL 6.4-8.2 [facility] Work Phone: Sodium [Moles/Vol] 140 mmol/L 136-145 [facility] Work Phone: WBC (Bld) [#/Vol] 17.4 10*3/uL 4.4-11.0 [facility] Work Phone: Blood erythrocytes count (nu mber/volume)on 07-15-2022 RBC (Bld) [#/Vol] 5.53 10*6/uL 4.6-6.2 [facility] Work Phone: Blood hemoglobin measurement (mass/volume)on 07-15-2022 Hemoglobin (Bld) [Mass/Vol] 15.3 g/dL 13.0-16.5 [facility] Work Phone: [phone] Blood lymphocytes/100 leukoc yteson 07-15-2022 Lymphocytes/100 WBC (Bld) 9.6 % 19-41 [facility] Work Phone: [phone] Blood monocytes/100 leukocyt eson 07-15-2022 Monocytes/100 WBC (Bld) 6.4 % 0-10 [facility] Work Phone: Blood platelet mean volumeon 07-15-2022 Platelet mean volume (Bld) [Entitic vol] 11.6 fL 6.2-12.0 [facility] Work Phone: Determination of erythrocyte mean corpuscular volume (MCV)on 07-15-2022 MCV (RBC) [Entitic vol] 84.8 fL 80-94 [facility] Work Phone: Erythrocyte sedimentation ra shantanu 07-15-2022 ESR (Bld) [Velocity] 11 mm/h 0-20 [facility] Work Phone: Hematocrit Auto (Bld) [Volum e fraction]on 07-15-2022 Hematocrit (Bld) [Volume fraction] 46.9 % 40-54 [facility] Work Phone: Interpretation of serum or p lasma protein pattern by immunofixation (narrative resulton 07-15-2022 Protein Fractions Immunofixation Hood [Interp] Not Reportable [facility] Work Phone: Laboratory - Chemistry and C hemistry - challengeon 07-15-2022 ALP [Catalytic activity/Vol] 102 U/L 45-117 [facility] Work Phone: ALT [Catalytic activity/Vol] 18 U/L 16-61 [facility] Work Phone: [phone] CO2 [Moles/Vol] 30.0 mmol/L 21.0-32.0 [facility] Work Phone: Globulin (S) [Mass/Vol] 3.7 g/dL 2.2-4.2 [facility] Work Phone: [phone] Urea nitrogen/Creatinine [Mass ratio] 15.7 mg/mg 10-20 [facility] Work Phone: Laboratory - Hematology and Cell countson 07-15-2022 Erythrocyte distribution width (RBC) [Entitic vol] 39.9 fL 35.1-43.9 [facility] Work Phone: Erythrocyte distribution width (RBC) [Ratio] 12.9 % 11.6-14.6 [facility] Work Phone: Immature granulocytes/100 WBC (Bld) 0.200 % 0.0-0.9 [facility] Work Phone: Comment on above: IG% - Immature Granu locytes (promyelocytes, myelocytes and metamyelocytes) > 1% indicates that a LEFT SHIFT is Present. MCH (RBC) [Entitic mass] 27.7 pg 27.0-32.0 [facility] Work Phone: Nucleated RBC/100 WBC (Bld) [Ratio] 0 % 0-5 [facility] Work Phone: MCHC Auto (RBC) [Mass/Vol]on 07-15-2022 MCHC (RBC) [Mass/Vol] 32.6 g/dL 32-36 [facility] Work Phone: No Panel Informationon 07-15 Centromere B Antibody <0.2 AI 0.0-0.9 [facility] Work Phone: Endomysial IgA Antibody Negative Negative [facility] Work Phone: Estimated GFR (MDRD) Amer 121 mL/min >60 [facility] Work Phone: Comment on above: GFR Calc Estimated GFR (MDRD) Non-Af Amer 100 mL/min >60 [facility] Work Phone: Comment on above: Non- GFR Calc Hepatitis C Antibody Preliminary Reactive Nonre active [facility] Work Phone: Comment on above: Non Reactive: < 0.8 Equivocal: >/= 0.8 to < 1.0 Reactive: >/= 1.0The CDC recommends that a reactive/equivocal HCV antibody result be followed up by the HCV Nucleic Acid Amplificationtest (588952) Hepatitis C Genotype See comment [facility] Work Phone: Comment on above: TEST RESULT LIMITSHC V Genotyping Non ReflexHepatitis C Genotype Test not performed. We are unable to determine the genotype and/or phenotype of this sample due to insufficient viral copy number. Samples with low viral loads will often fail PCR amplification.Please note: This test was developed and its performance characteristics determined by [employer]. It has not been cleared or approved by the U.S. Food and Drug Administration. The FDA has determined that such clearance or approval is notnecessary. This test is used for clinical purposes. It should not be regarded as investigational or for research. ___ TESTING PERFORMED AT [facility] [facility] [employer]. ORIGINAL REPORT ON FILE IN LAB CONTAINS ADDITIONAL TEST SITE INFORMATION. Immunoglobulin E See comment [facility] Work Phone: Comment on above: TEST RESULT LIMITSIm munoglobulin E, Total <2 Low IU/mL 6-495 TESTING PERFORMED AT [facility]. ORIGINAL REPORT ON FILE IN LAB CONTAINS ADDITIONAL TEST SITE INFORMATION. HOOP MAKER MACHINE Antibody 0.9 AI 0.0-0.9 [facility] Work Phone: Platelets bldon 07-15-2022 Platelets (Bld) [#/Vol] 221 10*3/uL 150-450 [facility] Work Phone: Serum DNA double strand anti body assay (units/volume)on 07-15-2022 DNA double strand Ab Qn (S) 2 [IU]/mL 0-9 [facility] Work Phone: Comment on above: Negative <5 Equivoca l 5 - 9 Positive >9 Serum Cammie-1 antibody assay (u nits/volume)on 07-15-2022 Cammie-1 extractable nuclear Ab Qn (S) <0.2 AI 0.0-0.9 [facility] Work Phone: Serum Scl-70 extractable nuc lear antibody assay (units/volume)on 07-15-2022 SCL-70 extractable nuclear Ab Qn (S) <0.2 AI 0.0-0.9 [facility] Work Phone: Serum Park extractable nucl ear antibody detectionon 07-15-2022 Park extractable nuclear Ab Ql (S) <0.2 AI 0.0-0.9 [facility] Work Phone: Serum mwvsh-0-rzmboufk measu rement by electrophoresison 07-15-2022 Alpha 1 globulin Elph [Mass/Vol] Not Reportable [facility] Work Phone: Serum classic neutrophil cyt oplasmic antibody assay (units/volume)on 07-15-2022 Neutrophil cytoplasmic Ab.classic Qn (S) See comment [facility] Work Phone: Comment on above: [...] up testing of positive sera with both NC-3 and MPO-ANCA enzyme immunoassays. As many as 5% serum samples are positive only by EIA.Ref. AM J Clin Pathol 1999;111:507-513.Atypical pANCA <1:20 titer Neg:<1:20The atypical pANCA pattern has been observed in a significant percentage of patients with ulcerative colitis, primary sclerosing cholangitis and autoimmune hepatitis. ____ TESTING PERFORMED AT [facility] [facility] [employer]. ORIGINAL REPORT ON FILE IN LAB CONTAINS ADDITIONAL TEST SITE INFORMATION. Serum or plasma C reactive p rotein measurement (mass/volume)on 07-15-2022 CRP [Mass/Vol] 12.20 mg/L 0.0-3.0 [facility] Work Phone: Comment on above: C-Reactive Protein ( CRP) provides useful information for thediagnosis, therapy and monitoring of inflammatory processesand associated diseases. For the evaluation of Relative Riskfor Cardiovascular Disease, a High Sensitivity CRP (HSCRP)should be ordered. Serum or plasma IgA measurem ent (mass/volume)on 07-15-2022 IgA [Mass/Vol] Not Reportable [facility] Work Phone: Serum or plasma IgG measurem ent (mass/volume)on 07-15-2022 IgG [Mass/Vol] Not Reportable [facility] Work Phone: Serum or plasma IgM measurem ent (mass/volume)on 07-15-2022 IgM [Mass/Vol] Not Reportable [facility] Work Phone: Serum or plasma albumin cristina urement (mass/volume)on 07-15-2022 Albumin [Mass/Vol] 3.7 g/dL 3.2-5.0 [facility] Work Phone: Serum or plasma albumin/glob ulin mass ratioon 07-15-2022 Albumin/Globulin [Mass ratio] 1.0 {ratio} 0.9-2.4 [facility] Work Phone: Serum or plasma beta globuli n measurement by electrophoresis (mass/volume)on 07-15-2022 Beta globulin Elph [Mass/Vol] Not Reportable [facility] Work Phone: Serum or plasma calcium cristina urement (mass/volume)on 07-15-2022 Calcium [Mass/Vol] 8.5 mg/dL 8.5-10.1 [facility] Work Phone: Serum or plasma creatinine m easurement (mass/volume)on 07-15-2022 Creatinine [Mass/Vol] 0.89 mg/dL 0.70-1.30 [facility] Work Phone: Comment on above: The validity of the calculated GFR & GFRAA in patients over 70 years has not been determined. Clinical correlation is essential. Serum or plasma gamma globul in measurement by electrophoresis (mass/volume)on 07-15-2022 Gamma globulin Elph [Mass/Vol] Not Reportable [facility] Work Phone: Serum or plasma hepatitis C virus RNA measurement by probe and target amplification mon 07-15-2022 HCV RNA MEME+probe Qn See comment [facility] Work Phone: Comment on above: TEST RESULT LIMITSHC V RT-PCR, Quant (Non-Graph)Hepatitis C Quantitation HCV Not Detected IU/mLTest Information: The quantitative range of this assay is 15 IU/mL to 100 million IU/mL. TESTING PERFORMED AT [facility]. ORIGINAL REPORT ON FILE IN LAB CONTAINS ADDITIONAL TEST SITE INFORMATION. Serum or plasma urea nitroge n measurement (mass/volume)on 07-15-2022 Urea nitrogen [Mass/Vol] 14 mg/dL 7-18 [facility] Work Phone: Serum perinuclear neutrophil cytoplasmic antibody titer by immunofluorescenceon 07-15-2022 Neutrophil cytoplasmic Ab.perinuclear IF (S) [Titer] Not Reportable [facility] Work Phone: Serum tissue transglutaminas e IgA antibody assay (units/volume)on 07-15-2022 tTG IgA Qn (S) 5 U/mL 0-3 [facility] Work Phone: Comment on above: Negative 0 - 3 Weak Positive 4 - 10 Positive >10 Tissue Transglutaminase (tTG) has been identified as the endomysial antigen. Studies have demonstr- ated that endomysial IgA antibodies have over 99% specificity for gluten sensitive enteropathy. Thin prep Papanicolaou smear with manual screeningon 07-15-2022 Thin prep Papanicolaou smear with manual screening 15 U/L 15-37 [facility] Work Phone: Thin prep Papanicolaou smear with manual screening 5 5-15 [facility] Work Phone: Thin prep Papanicolaou smear with manual screening 232 U/L 87-241 [facility] Work Phone: Thin prep Papanicolaou smear with manual screening Not Reportable [facility] Work Phone: Total protein bloodon 2021 Protein [Mass/Vol] See comment [facility] Work Phone: Comment on above: TEST RESULT LIMITSIF E and PE, SerumImmunoglobulin G, Qn, Serum 880 mg/dL [id number] A, Qn, Serum 204 mg/dL 90-386Immunoglobulin M, Qn, Serum 202 High mg/dL 20-172Protein, Total 7.0 g/dL 6.0-8.5Albumin 3.7 g/dL 2.9-4.4Dkicg-9-Ivskzpyw 0.4 g/dL 0.0-0.7Aqlen-7-Bxqpcgmd 0.8 g/dL 0.4-1.0Beta Globulin 0.9 g/dL 0.7-1.3Gamma Globulin 1.2 g/dL 0.4-1.8M-Martin Not Observed g/dL Not ObservedGlobulin, Total 3.3 g/dL 2.2-3.9A/G Ratio 1.2 0.7-1.7[employer] Result, Serum No monoclonality detected.Please note: Protein electrophoresis scan will follow via computer, mail, or data collection associate delivery. Absolute lymphocyte counton 05-22-2022 Lymphocytes Auto (Unsp spec) [#/Vol] 0.96 10*3/uL 0.83-4.51 [facility] Work Phone: Basophil percentageon 2021 Basophil percentage 0-5 SEEN /hpf 0-5 [facility] Work Phone: Basophils/100 WBC (Bld) 0.6 % 0-1 [facility] Work Phone: Eosinophils/100 WBC (Bld) 1.5 % 0-5 [facility] Work Phone: [phone] Neutrophils (Bld) [#/Vol] 8.6 10*3/uL 2.0-7.7 [facility] Work Phone: Neutrophils/100 WBC (Bld) 85.0 % 47-70 [facility] Work Phone: WBC (Bld) [#/Vol] 10.2 10*3/uL 4.4-11.0 [facility] Work Phone: Bilirubin Test strip Ql (U)o n 05-22-2022 Bilirubin Ql (U) Negative Negative [facility] Work Phone: Blood erythrocytes count (nu mber/volume)on 05-22-2022 RBC (Bld) [#/Vol] 5.35 10*6/uL 4.6-6.2 [facility] Work Phone: Blood hemoglobin measurement (mass/volume)on 05-22-2022 Hemoglobin (Bld) [Mass/Vol] 15.0 g/dL 13.0-16.5 [facility] Work Phone: [phone] Blood lymphocytes/100 leukoc yteson 05-22-2022 Lymphocytes/100 WBC (Bld) 9.5 % 19-41 [facility] Work Phone: Blood monocytes/100 leukocyt eson 05-22-2022 Monocytes/100 WBC (Bld) 3.3 % 0-10 [facility] Work Phone: Blood platelet mean volumeon 05-22-2022 Platelet mean volume (Bld) [Entitic vol] 11.5 fL 6.2-12.0 [facility] Work Phone: [phone] Determination of erythrocyte mean corpuscular volume (MCV)on 05-22-2022 MCV (RBC) [Entitic vol] 84.3 fL 80-94 [facility] Work Phone: Hematocrit Auto (Bld) [Volum e fraction]on 05-22-2022 Hematocrit (Bld) [Volume fraction] 45.1 % 40-54 [facility] Work Phone: Ketones Test strip Ql (U)on 05-22-2022 Ketones Ql (U) 150 mg/dl Negative [facility] Work Phone: Comment on above: CRITICAL VALUE *HCRI TICAL VALUE VERIFIED. CALLED TO STEFANO AGUILAR (ER)05/22/22 1133 [place] [address].RESULTS READ BACK BY SAME. Laboratory - Hematology and Cell countson 05-22-2022 Erythrocyte distribution width (RBC) [Entitic vol] 36.8 fL 35.1-43.9 [facility] Work Phone: Erythrocyte distribution width (RBC) [Ratio] 12.1 % 11.6-14.6 [facility] Work Phone: Immature granulocytes/100 WBC (Bld) 0.100 % 0.0-0.9 [facility] Work Phone: Comment on above: IG% - Immature Granu locytes (promyelocytes, myelocytes and metamyelocytes) > 1% indicates that a LEFT SHIFT is Present. MCH (RBC) [Entitic mass] 28.0 pg 27.0-32.0 [facility] Work Phone: Nucleated RBC/100 WBC (Bld) [Ratio] 0 % 0-5 [facility] Work Phone: MCHC Auto (RBC) [Mass/Vol]on 05-22-2022 MCHC (RBC) [Mass/Vol] 33.3 g/dL 32-36 [facility] Work Phone: Mucus LM Ql (Urine sed)on Mucus Ql (Urine sed) 0 SEEN /hpf [facility] Work Phone: Nitrite Test strip Ql (U)on 05-22-2022 Nitrite Ql (U) Negative Negative [facility] Work Phone: Platelets bldon 05-22-2022 Platelets (Bld) [#/Vol] 205 10*3/uL 150-450 [facility] Work Phone: Protein Test strip Ql (U)on 05-22-2022 Protein Ql (U) 15 mg/dl Negative [facility] Work Phone: Squamous epithelial cells de tection in urine sediment by light microscopyon 05-22-2022 Epithelial cells.squamous LM Ql (Urine sed) 0-5 SEEN /hpf 0-5 [facility] Work Phone: Urine blood detectionon RBC Ql (U) Negative Negative [facility] Work Phone: RBC Ql (U) 0 SEEN /hpf 0-5 [facility] Work Phone: Urine clarityon 05-22-2022 Clarity (U) Clear Clear [facility] Work Phone: Urine color determinationon 05-22-2022 Color (U) Yellow Yellow [facility] Work Phone: Urine glucose detectionon Glucose Ql (U) Normal mg/dl Normal [facility] Work Phone: Urine leukocyte esterase det ection by dipstickon 05-22-2022 Leukocyte esterase Test strip Ql (U) 25 /ul Negative [facility] Work Phone: Urine pHon 05-22-2022 pH (U) 5.0 [pH] 5.0 - 8.0 [facility] Work Phone: Urine sediment bacteria coun t by microscopy (number/high power field)on 05-22-2022 Bacteria LM.HPF (Urine sed) [#/Area] 0 /[HPF] None Seen [facility] Work Phone: Urine specific gravity measu rementon 05-22-2022 Specific gravity (U) [Rel density] 1.020 1.002-1.030 [facility] Work Phone: Urobilinogen Auto test strip Ql (U)on 05-22-2022 Urobilinogen Ql (U) Normal mg/dl Normal [facility] Work Phone: Absolute lymphocyte counton 05-21-2022 Lymphocytes Auto (Unsp spec) [#/Vol] 1.09 10*3/uL 0.83-4.51 [facility] Work Phone: Basophil percentageon 2021 Basophil percentage 0 SEEN /hpf 0-5 [facility] Work Phone: Basophils/100 WBC (Bld) 0.3 % 0-1 [facility] Work Phone: Bilirubin [Mass/Vol] 0.30 mg/dL 0.20-1.00 [facility] Work Phone: Comment on above: For patients on eltr ombopag therapy, use of Dimension [place] TBIL is not recommended. Chloride [Moles/Vol] 108 mmol/L 98-107 [facility] Work Phone: Eosinophils/100 WBC (Bld) 1.4 % 0-5 [facility] Work Phone: Glucose [Mass/Vol] 116 mg/dL 74-106 [facility] Work Phone: Comment on above: Fasting Glucose resu lt from 100 to 125 mg/dL suggests IMPAIRED HOMEOSTASIS per A.D.A. criteria. Neutrophils (Bld) [#/Vol] 10.3 10*3/uL 2.0-7.7 [facility] Work Phone: Neutrophils/100 WBC (Bld) 85.3 % 47-70 [facility] Work Phone: Potassium [Moles/Vol] 4.3 mmol/L 3.5-5.1 [facility] Work Phone: Protein [Mass/Vol] 6.9 g/dL 6.4-8.2 [facility] Work Phone: Sodium [Moles/Vol] 139 mmol/L 136-145 [facility] Work Phone: WBC (Bld) [#/Vol] 12.1 10*3/uL 4.4-11.0 [facility] Work Phone: Bilirubin Test strip Ql (U)o n 05-21-2022 Bilirubin Ql (U) Negative Negative [facility] Work Phone: Blood erythrocytes count (nu mber/volume)on 05-21-2022 RBC (Bld) [#/Vol] 5.60 10*6/uL 4.6-6.2 [facility] Work Phone: Blood hemoglobin measurement (mass/volume)on 05-21-2022 Hemoglobin (Bld) [Mass/Vol] 15.5 g/dL 13.0-16.5 [facility] Work Phone: Blood lymphocytes/100 leukoc yteson 05-21-2022 Lymphocytes/100 WBC (Bld) 9.0 % 19-41 [facility] Work Phone: Blood monocytes/100 leukocyt eson 05-21-2022 Monocytes/100 WBC (Bld) 3.8 % 0-10 [facility] Work Phone: Blood platelet mean volumeon 05-21-2022 Platelet mean volume (Bld) [Entitic vol] 10.9 fL 6.2-12.0 [facility] Work Phone: Determination of erythrocyte mean corpuscular volume (MCV)on 05-21-2022 MCV (RBC) [Entitic vol] 84.5 fL 80-94 [facility] Work Phone: Hematocrit Auto (Bld) [Volum e fraction]on 05-21-2022 Hematocrit (Bld) [Volume fraction] 47.3 % 40-54 [facility] Work Phone: Ketones Test strip Ql (U)on 05-21-2022 Ketones Ql (U) 5 mg/dl Negative [facility] Work Phone: Laboratory - Chemistry and C hemistry - challengeon 05-21-2022 ALP [Catalytic activity/Vol] 102 U/L 45-117 [facility] Work Phone: ALT [Catalytic activity/Vol] 13 U/L 16-61 [facility] Work Phone: CO2 [Moles/Vol] 27.0 mmol/L 21.0-32.0 [facility] Work Phone: Globulin (S) [Mass/Vol] 3.3 g/dL 2.2-4.2 [facility] Work Phone: Lipase [Catalytic activity/Vol] 58 U/L 73-393 [facility] Work Phone: Urea nitrogen/Creatinine [Mass ratio] 15.2 mg/mg 10-20 [facility] Work Phone: Laboratory - Hematology and Cell countson 05-21-2022 Erythrocyte distribution width (RBC) [Entitic vol] 37.5 fL 35.1-43.9 [facility] Work Phone: Erythrocyte distribution width (RBC) [Ratio] 12.4 % 11.6-14.6 [facility] Work Phone: Immature granulocytes/100 WBC (Bld) 0.200 % 0.0-0.9 [facility] Work Phone: Comment on above: IG% - Immature Granu locytes (promyelocytes, myelocytes and metamyelocytes) > 1% indicates that a LEFT SHIFT is Present. MCH (RBC) [Entitic mass] 27.7 pg 27.0-32.0 [facility] Work Phone: Nucleated RBC/100 WBC (Bld) [Ratio] 0 % 0-5 [facility] Work Phone: MCHC Auto (RBC) [Mass/Vol]on 05-21-2022 MCHC (RBC) [Mass/Vol] 32.8 g/dL 32-36 [facility] Work Phone: [phone] Mucus LM Ql (Urine sed)on Mucus Ql (Urine sed) 0 SEEN /hpf [facility] Work Phone: Nitrite Test strip Ql (U)on 05-21-2022 Nitrite Ql (U) Negative Negative [facility] Work Phone: No Panel Informationon 05-21 Estimated Creatinine Clearance Calc 103.58 ml/min [facility] Work Phone: Estimated GFR (MDRD) Amer 139 mL/min >60 [facility] Work Phone: Comment on above: GFR Calc Estimated GFR (MDRD) Non-Af Amer 115 mL/min >60 [facility] Work Phone: Comment on above: Non- GFR Calc Platelets bldon 05-21-2022 Platelets (Bld) [#/Vol] 215 10*3/uL 150-450 [facility] Work Phone: Protein Test strip Ql (U)on 05-21-2022 Protein Ql (U) 15 mg/dl Negative [facility] Work Phone: Serum or plasma albumin cristina urement (mass/volume)on 05-21-2022 Albumin [Mass/Vol] 3.6 g/dL 3.2-5.0 [facility] Work Phone: Serum or plasma albumin/glob ulin mass ratioon 05-21-2022 Albumin/Globulin [Mass ratio] 1.1 {ratio} 0.9-2.4 [facility] Work Phone: Serum or plasma calcium cristina urement (mass/volume)on 05-21-2022 Calcium [Mass/Vol] 8.9 mg/dL 8.5-10.1 [facility] Work Phone: Serum or plasma creatinine m easurement (mass/volume)on 05-21-2022 Creatinine [Mass/Vol] 0.79 mg/dL 0.70-1.30 [facility] Work Phone: Comment on above: The validity of the calculated GFR & GFRAA in patients over 70 years has not been determined. Clinical correlation is essential. Serum or plasma urea nitroge n measurement (mass/volume)on 05-21-2022 Urea nitrogen [Mass/Vol] 12 mg/dL 7-18 [facility] Work Phone: Squamous epithelial cells de tection in urine sediment by light microscopyon 05-21-2022 Epithelial cells.squamous LM Ql (Urine sed) 0 SEEN /hpf 0-5 [facility] Work Phone: Thin prep Papanicolaou smear with manual screeningon 05-21-2022 Thin prep Papanicolaou smear with manual screening 10 U/L 15-37 [facility] Work Phone: [phone] Thin prep Papanicolaou smear with manual screening 4 5-15 [facility] Work Phone: Urine blood detectionon RBC Ql (U) Negative Negative [facility] Work Phone: RBC Ql (U) 0 SEEN /hpf 0-5 [facility] Work Phone: Urine clarityon 05-21-2022 Clarity (U) Clear Clear [facility] Work Phone: Urine color determinationon 05-21-2022 Color (U) Yellow Yellow [facility] Work Phone: Urine glucose detectionon Glucose Ql (U) Normal mg/dl Normal [facility] Work Phone: Urine leukocyte esterase det ection by dipstickon 05-21-2022 Leukocyte esterase Test strip Ql (U) Negative Negative [facility] Work Phone: Urine pHon 05-21-2022 pH (U) 6.0 [pH] 5.0 - 8.0 [facility] Work Phone: Urine sediment bacteria coun t by microscopy (number/high power field)on 05-21-2022 Bacteria LM.HPF (Urine sed) [#/Area] 0 /[HPF] None Seen [facility] Work Phone: Urine specific gravity measu rementon 05-21-2022 Specific gravity (U) [Rel density] 1.020 1.002-1.030 [facility] Work Phone: Urobilinogen Auto test strip Ql (U)on 05-21-2022 Urobilinogen Ql (U) Normal mg/dl Normal [facility] Work Phone: Bilirub Conj SerPl-mCncon Bilirubin.conjugated [Mass/Vol] mg/dL Normal <0.2 [facility] Comment on above: Order Comment: Speci men Type: BLOOD SPECIMEN Ordering Facility: [facility] [employer] Address: [address] [place] [address] Performed By: #### 3 016-3, 02453-5, 85924-4 #### [facility] CLIA [id number] [address] [place] [address] [place] CBC W Auto Differential pane l (Bld)on 03-17-2022 Basophils (Bld) [#/Vol] 0.13 10*3/uL High <0.11 [facility] Comment on above: Order Comment: Speci men Type: BLOOD SPECIMEN Ordering Facility: [facility] Address: [address] [place] [address] Performed By: #### 5 7021-8 #### [facility] CLIA [id number] [address] [place] [address] [place] Basophils/100 WBC (Bld) 0.7 % Normal [facility] Comment on above: Order Comment: Speci men Type: BLOOD SPECIMEN Ordering Facility: [facility] Address: [address] [place] [address] Performed By: #### 5 7021-8 #### [facility] CLIA [id number] [address] [place] [address] [place] Differential cell count method Nom (Bld) Auto Normal [facility] Comment on above: Order Comment: Speci men Type: BLOOD SPECIMEN Ordering Facility: [facility] Address: [address] [place] [address] Performed By: #### 5 7021-8 #### [facility] CLIA [id number] [address] [place] [place] [id number] [place] Eosinophils (Bld) [#/Vol] 0.12 10*3/uL Normal <0.46 [facility] Comment on above: Order Comment: Speci men Type: BLOOD SPECIMEN Ordering Facility: [facility] [employer] [facility] Address: [address] [place] [address] Performed By: #### 5 7021-8 #### [facility] CLIA [id number] [address] [place] [place] [id number] [place] Eosinophils/100 WBC (Bld) 0.7 % Normal [facility] Comment on above: Order Comment: Speci men Type: BLOOD SPECIMEN Ordering Facility: [facility] [employer] [facility] Address: [address] [place] [address] Performed By: #### 5 7021-8 #### [facility] CLIA [id number] [address] [place] [address] [place] Erythrocyte distribution width (RBC) [Ratio] 12.3 % Normal 11.5-15.0 [facility] Comment on above: Order Comment: Speci men Type: BLOOD SPECIMEN Ordering Facility: [facility] [employer] Address: [address] [place] [address] Performed By: #### 5 7021-8 #### [facility] CLIA [id number] [address] [place], [place] [address] [place] Hematocrit (Bld) [Volume fraction] 52.0 % High 39.0-51.0 [facility] Comment on above: Order Comment: Speci men Type: BLOOD SPECIMEN Ordering Facility: [facility] [employer] Address: [address] [place] [address] Performed By: #### 5 7021-8 #### [facility] CLIA [id number] [address] [place], [place] [address] [place] Hemoglobin (Bld) [Mass/Vol] 16.9 g/dL Normal 13.0-17.0 [facility] Comment on above: Order Comment: Speci men Type: BLOOD SPECIMEN Ordering Facility: [facility] Address: [address] [place] [address] Performed By: #### 5 7021-8 #### [facility] CLIA [id number] [address] [place] [address] [place] IMMATURE GRAN % 0.5 % Normal [facility] Comment on above: Order Comment: Speci men Type: BLOOD SPECIMEN Ordering Facility: A [facility] Address: [address] [place] [address] Performed By: #### 5 7021-8 #### [facility] CLIA [id number] [address] [place] [address] [place] IMMATURE GRAN ABS 0.08 k/uL Normal <0.10 [facility] Comment on above: Order Comment: Speci men Type: BLOOD SPECIMEN Ordering Facility: [facility] Address: [address] [place] [address] Performed By: #### 5 7021-8 #### [facility] CLIA [id number] [address] [place] [address] [place] Lymphocytes (Bld) [#/Vol] 1.37 10*3/uL Normal 1.00-4.00 [facility] Comment on above: Order Comment: Speci men Type: BLOOD SPECIMEN Ordering Facility: A [facility] Address: [address] [place] [address] Performed By: #### 5 7021-8 #### [facility] CLIA [id number] [address] [place] [address] [place] Lymphocytes/100 WBC (Bld) 7.9 % Normal [facility] Comment on above: Order Comment: Speci men Type: BLOOD SPECIMEN Ordering Facility: A [facility] Address: [address] [place] [address] Performed By: #### 5 7021-8 #### [facility] CLIA [id number] [address] [place], [place] [address] [place] MCH (RBC) [Entitic mass] 27.6 pg Normal 26.0-34.0 [facility] Comment on above: Order Comment: Speci men Type: BLOOD SPECIMEN Ordering Facility: [facility] [employer] [facility] Address: [address] [place] [address] Performed By: #### 5 7021-8 #### [facility] CLIA [id number] [address] [place] [address] [place] MCHC (RBC) [Mass/Vol] 32.5 g/dL Normal 30.5-36.0 [facility] Comment on above: Order Comment: Speci men Type: BLOOD SPECIMEN Ordering Facility: [facility] [employer] [facility] Address: [address] [place] [address] Performed By: #### 5 7021-8 #### [facility] CLIA [id number] [address] [place] [address] [place] MCV (RBC) [Entitic vol] 84.8 fL Normal 80.0-100.0 [facility] Comment on above: Order Comment: Speci men Type: BLOOD SPECIMEN Ordering Facility: [facility] [employer] Address: [address] [place] [address] Performed By: #### 5 7021-8 #### [facility] CLIA [id number] [address] [place] [address] [place] Monocytes (Bld) [#/Vol] 1.31 10*3/uL High <0.87 [facility] Comment on above: Order Comment: Speci men Type: BLOOD SPECIMEN Ordering Facility: [facility] [employer] Address: [address] [place] [address] Performed By: #### 5 7021-8 #### [facility] CLIA [id number] [address] [place] [address] [place] Monocytes/100 WBC (Bld) 7.5 % Normal [facility] Comment on above: Order Comment: Speci men Type: BLOOD SPECIMEN Ordering Facility: [facility] [employer] [facility] Address: [address] [place] [address] Performed By: #### 5 7021-8 #### [facility] CLIA [id number] [address] [address] [place] Neutrophils (Bld) [#/Vol] 14.35 10*3/uL High 1.45-7.50 [facility] Comment on above: Order Comment: Speci men Type: BLOOD SPECIMEN Ordering Facility: [facility] [employer] [facility] Address: [address] [place] [address] Performed By: #### 5 7021-8 #### [facility] CLIA [id number] [address] [address] [place] Neutrophils/100 WBC (Bld) 82.7 % Normal [facility] Comment on above: Order Comment: Speci men Type: BLOOD SPECIMEN Ordering Facility: [facility] [employer] [facility] Address: [address] [place] [address] Performed By: #### 5 7021-8 #### [facility] CLIA [id number] [address] [place] [address] [place] Nucleated RBC (Bld) [#/Vol] 10*3/uL Normal <0.01 [facility] Comment on above: Order Comment: Speci men Type: BLOOD SPECIMEN Ordering Facility: [facility] [employer] [facility] Address: [address] [place] [address] Performed By: #### 5 7021-8 #### [facility] CLIA [id number] [address] [place] [id number] [place] Nucleated RBC/100 WBC (Bld) [Ratio] 0.0 /100 WBC Normal [facility] Comment on above: Order Comment: Speci men Type: BLOOD SPECIMEN Ordering Facility: [facility] [employer] Address: [address] [place] [address] Performed By: #### 5 7021-8 #### [facility] CLIA [id number] [address] [place] [address] [place] Platelet mean volume (Bld) [Entitic vol] 11.9 fL Normal 9.0-12.7 [facility] Comment on above: Order Comment: Speci men Type: BLOOD SPECIMEN Ordering Facility: [facility] [employer] [facility] Address: [address] [place] [address] Performed By: #### 5 7021-8 #### [facility] CLIA [id number] [address] [place] [address] [place] Platelets (Bld) [#/Vol] 201 10*3/uL Normal 150-400 [facility] Comment on above: Order Comment: Speci men Type: BLOOD SPECIMEN Ordering Facility: [facility] [employer] [facility] Address: [address] [place] [address] Result Comment: No c lot detected Performed By: #### 5 7021-8 #### [facility] CLIA [id number] [address] [place] [address] [place] RBC (Bld) [#/Vol] 6.13 10*6/uL High 4.20-6.00 [facility] Comment on above: Order Comment: Speci men Type: BLOOD SPECIMEN Ordering Facility: [facility] [employer] [facility] Address: [address] [place] [address] Performed By: #### 5 7021-8 #### [facility] CLIA [id number] [address] [place] [address] [place] WBC (Bld) [#/Vol] 17.36 10*3/uL High 3.70-11.00 [facility] Comment on above: Order Comment: Speci men Type: BLOOD SPECIMEN Ordering Facility: [facility] [employer] [facility] Address: [address] [place] [address] Performed By: #### 5 7021-8 #### [facility] CLIA [id number] [address] [place], [place] [address] [place] Comprehensive metabolic 2000 panelon 03-17-2022 Albumin [Mass/Vol] 4.8 g/dL Normal 3.9-4.9 [facility] Comment on above: Order Comment: Speci men Type: BLOOD SPECIMEN Ordering Facility: [facility] [employer] [facility] Address: [address] [place] [address] Performed By: #### 3 016-3, 26197-7, 12373-2 #### [facility] CLIA [id number] [address] [address] [place] ALP [Catalytic activity/Vol] 127 U/L High 38-113 [facility] Comment on above: Order Comment: Speci men Type: BLOOD SPECIMEN Ordering Facility: [facility] [employer] [facility] Address: [address] [place] [address] Performed By: #### 3 016-3, 41186-1, 76634-6 #### [facility] CLIA [id number] [address] [place] [id number] [place] ALT [Catalytic activity/Vol] 13 U/L Normal 10-54 [facility] Comment on above: Order Comment: Speci men Type: BLOOD SPECIMEN Ordering Facility: [facility] [employer] [facility] Address: [address] [place] [address] Performed By: #### 3 016-3, , 03913-0 #### [facility] CLIA [id number] [address] [address] [place] Anion gap [Moles/Vol] 11 mmol/L Normal 9-18 [facility] Comment on above: Order Comment: Speci men Type: BLOOD SPECIMEN Ordering Facility: [facility] [employer] [facility] Address: [address] [place] [address] Performed By: #### 3 016-3, , 65518-6 #### [facility] CLIA [id number] [address] [address] [place] AST [Catalytic activity/Vol] 15 U/L Normal 14-40 [facility] Comment on above: Order Comment: Speci men Type: BLOOD SPECIMEN Ordering Facility: [facility] [employer] [facility] Address: [address] [place] [address] Performed By: #### 3 016-3, 86867-3, 50632-1 #### [facility] CLIA [id number] [address] [address] [place] Bilirubin [Mass/Vol] 0.5 mg/dL Normal 0.2-1.3 [facility] Comment on above: Order Comment: Speci men Type: BLOOD SPECIMEN Ordering Facility: [facility] [employer] [facility] Address: [address] [place], [place] [id number] Performed By: #### 3 016-3, 47188-6, 78397-2 #### [facility] CLIA [id number] [address] [place] [address] [place] Calcium [Mass/Vol] 9.2 mg/dL Normal 8.5-10.2 [facility] Comment on above: Order Comment: Speci men Type: BLOOD SPECIMEN Ordering Facility: [facility] [employer] [facility] Address: [address] [place], [place] [address] Performed By: #### 3 016-3, 28796-0, 32357-0 #### [facility] CLIA [id number] [address] [place] [address] [place] Chloride [Moles/Vol] 97 mmol/L Normal 97-105 [facility] Comment on above: Order Comment: Speci men Type: BLOOD SPECIMEN Ordering Facility: [facility] [employer] [facility] Address: [address] [place] [address] Performed By: #### 3 016-3, 91829-7, 81408-8 #### [facility] CLIA [id number] [address] [place] [id number] [place] CO2 [Moles/Vol] 27 mmol/L Normal 22-30 [facility] Comment on above: Order Comment: Speci men Type: BLOOD SPECIMEN Ordering Facility: [facility] [employer] [facility] Address: [address] [place] [address] Performed By: #### 3 016-3, 88617-7, 35456-1 #### [facility] CLIA [id number] [address] [place] [id number] [place] Creatinine [Mass/Vol] 0.72 mg/dL Low 0.73-1.22 [facility] Comment on above: Order Comment: Leilani noland Type: BLOOD SPECIMEN Ordering Facility: [facility] [employer] [facility] Address: [address] [place], [place] [address] Performed By: #### 3 016-3, 26749-0, 54991-7 #### [facility] CLIA [id number] [address] [place] [address] [place] ESTIMATED GLOMERULAR FILTRATION RATE 118 mL/min/1.73m??? Normal >=60 [facility] Comment on above: Order Comment: Leilani noland Type: BLOOD SPECIMEN Ordering Facility: [employer] [facility] Address: [address] [place], [place] [id number] Result Comment: Trent mated Glomerular Filtration Rate [...] actual GFR. Performed By: #### 3 016-3, 92027-7, 50138-9 #### [facility] CLIA [id number] [address] [place] [address] [place] Glucose [Mass/Vol] 142 mg/dL High 74-99 [facility] Comment on above: Order Comment: Leilani noland Type: BLOOD SPECIMEN Ordering Facility: [facility] [employer] [facility] Address: [address] [place] [address] Result Comment: The [place] [employer] (ADA) provides guidance for cutoff [...] Standards of Medical Care in Diabetes 2016, [place] [employer]. Diabetes Care. 2016.39(Suppl 1). Performed By: #### 3 016-3, 37524-9, 04655-0 #### [facility] CLIA [id number] [address] [place] [address] [place] Potassium [Moles/Vol] 3.9 mmol/L Normal 3.7-5.1 [facility] Comment on above: Order Comment: Speci men Type: BLOOD SPECIMEN Ordering Facility: [facility] [employer] [facility] Address: [address] [place] [address] Performed By: #### 3 016-3, 99774-7, 77782-3 #### [facility] CLIA [id number] [address] [place] [address] [place] Protein [Mass/Vol] 7.3 g/dL Normal 6.3-8.0 [facility] Comment on above: Order Comment: Speci men Type: BLOOD SPECIMEN Ordering Facility: [facility] [employer] Address: [address] [place] [address] Performed By: #### 3 016-3, 05130-5, 11899-2 #### [facility] CLIA [id number] [address] [place] [address] [place] Sodium [Moles/Vol] 135 mmol/L Low 136-144 [facility] Comment on above: Order Comment: Speci men Type: BLOOD SPECIMEN Ordering Facility: [facility] [employer] Address: [address] [place] [address] Performed By: #### 3 016-3, 34397-1, 36777-6 #### [facility] CLIA [id number] [address] [place] [address] [place] Urea nitrogen [Mass/Vol] 10 mg/dL Normal 9-24 [facility] Comment on above: Order Comment: Speci men Type: BLOOD SPECIMEN Ordering Facility: [facility] [employer] Address: [address] [place] [address] Performed By: #### 3 016-3, 57568-1, 44448-5 #### [facility] CLIA [id number] [address] [place] [address] [place] HAV IgM Ser Qlon 03-17-2022 HAV IgM Ql (S) Negative Normal Negative [facility] Comment on above: Order Comment: Leilani ludin Type: BLOOD SPECIMEN Ordering Facility: [facility] [employer] [facility] Address: [address] [place] [address] Result Comment: No e vidence of recent infection with Hepatitis A virus. Performed By: #### 1 1011-4 #### [facility] CLIA [id number] [address] [place] [address] [place] HBV core IgM Ser Qlon 2021 HBV core IgM Ql (S) Negative Normal Negative [facility] Comment on above: Order Comment: Leilani ludin Type: BLOOD SPECIMEN Ordering Facility: [facility] [employer] [facility] Address: [address] [place] [address] Result Comment: No e vidence of recent infection with Hepatitis B virus. Should recent infection be suspected, repeat testing may be considered 3-4 weeks after this draw. Performed By: #### 1 0900-9, MICRO, HIV12M, 94435-5, 98761-6 #### [facility] CLIA [id number] [address] [place] [address] [place] HBV surface Ab IA Ql (S)on 0 03-17-2022 HBV surface Ag Ql (S) Negative Normal Negative [facility] Comment on above: Order Comment: Jovannyjacques noland Type: BLOOD SPECIMEN Ordering Facility: [facility] Address: [address] [place] [address] Performed By: #### 1 0900-9, MICRO, HIV12M, 55144-4, 19147-1 #### [facility] CLIA [id number] [address] [place] [address] [place] HCV Ab Ser Qlon 03-17-2022 HCV Ab Ql (S) Positive Abnormal Negative [facility] Comment on above: Order Comment: Leilani noland Type: BLOOD SPECIMEN Ordering Facility: [facility] Address: [address] [place] [address] Result Comment: Conf irmation with Hepatitis C RNA has been ordered and charged. Performed By: #### 1 6128-1, 43714-0 #### [facility] CLIA [id number] [address] [place] [address] [place] HCV RNA SerPl MEME+probe-aCnc on 03-17-2022 HCV RNA MEME+probe Qn Not detected Normal HCV RNA not detected by PCR. [facility] Comment on above: Order Comment: Leilani noland Type: BLOOD SPECIMEN Ordering Facility: [facility] Address: [address] [place], [place] [id number] Performed By: #### 1 6128-1, 54216-1 #### [facility] CLIA [id number] [address] [place] [address] [place] HCV RNA MEME+probe Qn Not detected Normal HCV RNA not detected by PCR. [facility] Comment on above: Order Comment: Leilani noland Type: BLOOD SPECIMEN Ordering Facility: [facility] Address: [address] [place], [place] [id number] Performed By: #### 1 1011-4 #### [facility] CLIA [id number] [address] [place] [address] [place] HIV-1/2 AB CONFIRMATORYon HIV 1 and 2 Ab IA.rapid Nom Negative Normal Negative [facility] Comment on above: Order Comment: Leilani noland Type: BLOOD SPECIMEN Ordering Facility: [facility] Address: [address] [place] [address] Result Comment: The result suggests no evidence [...] to 3 weeks after this. HIV Information: [place] Rev. Code 3701.243(E): This information has been [...] diagnoses. Performed By: #### 1 1011-4 #### [facility] CLIA [id number] [address] [place] [address] [place] THYROID PEROXIDASE ANTIBODY BLOODon 03-17-2022 TPO Ab Qn [IU]/mL Normal <5.6 [facility] Comment on above: Order Comment: Speci men Type: BLOOD SPECIMEN Ordering Facility: [facility] Address: [address] [place] [address] Result Comment: Thyr oid Peroxidase Antibody test is used as an aid in diagnosis of autoimmune thyroid disease. Clinical correlation is required. Performed By: #### 1 1011-4 #### [facility] IA [id number] [address] [place] [address] [place] TSH SerPl-aCncon 03-17-2022 TSH Qn 0.918 m[IU]/L Normal 0.270-4.200 [facility] Comment on above: Order Comment: Leilani noland Type: BLOOD SPECIMEN Ordering Facility: [facility] Address: [address] [place] [address] Performed By: #### 3 016-3, 68068-8, 57387-3 #### [facility] [place] [id number] [address] [place] [address] [place] CNPLinda 03-05-2022 [facility] JOSE MCNAMARA ([id number]) 1980 M Date Time Provider Department 03/05/22 [...] - Intolerance Date Reviewed: 03/04/2022 Reviewed by: Ewdard Powell APRN.AS400 PROGRAMMER - Fully Assessed Reason for Visit: Results [...] Status:Closed by KLAUDIA MARTINEZ on 03/05/22 Normal [facility] CNOVon 03-04-2022 CNOV Office Visit ([facility] ) ----- JOSE MCNAMARA ([id number]) 1980 M Date Time Provider Department 03/04/22 11:[address] [facility] During your visit today, we recorded the following information about you: Temperature Pulse Respiration Blood pressure 98.6 degrees 77/minute 18/minute 102/74 Weight 62.9 kg Edward Powell APRN.AS400 PROGRAMMER 03/04/2022 11:44 AM Signed Subjective HPI Nontoxic-appearing [...] drainage, sw (more content not included)... [facility] JOSE MCNAMARA ([id number]) 1980 M Date Time Provider Department 06/03/21 [...] (FLONASE) 50 mcg/actuation nasal spray Use 1 [place] in each nostril once daily. - propranolol [...] by ROOPA CONTEH MA on 06/03/21 Normal [facility] Basic Metabolic Panelon 05-2 Calcium 9.2 mg/dL Normal 8.4-10.2 [facility] Comment on above: Performed By: #### H EMDF, LFT3, BMP3, ETOH4 ####[employer] [address] [employer] [place] [address] Glucose mass conc 71 mg/dL Normal 70-100 [facility] Comment on above: Performed By: #### H EMDF, LFT3, BMP3, ETOH4 ####[employer] [address] [employer], [place] Urea nitrogen 12 mg/dL Normal 7-20 [facility] Comment on above: Performed By: #### H EMDF, LFT3, BMP3, ETOH4 ####[address] [place], [place] Anion gap 13 Normal [facility] Comment on above: Performed By: #### H EMDF, LFT3, BMP3, ETOH4 ####[address] [place], [place] CO2 24 mmol/L Normal 22-30 [facility] Comment on above: Performed By: #### H EMDF, LFT3, BMP3, ETOH4 ####[address] [place], [place] Creatinine 0.75 mg/dL Normal 0.52-1.25 [facility] Comment on above: Performed By: #### H EMDF, LFT3, BMP3, ETOH4 ####[address] eGFR (black) mL/min/{1.73_m2} Normal >60 [facility] Comment on above: Performed By: #### H EMDF, LFT3, BMP3, ETOH4 ####[address] eGFR (non-black) mL/min/{1.73_m2} Normal >60 [facility] Comment on above: Result Comment: Sour ce- MDRD equation with creatinine calibration to IDMS(NKDEP) eGFR not recommended for drug dose adjustment Performed By: #### H EMDF, LFT3, BMP3, ETOH4 ####[address] [place], [place] Chloride 102 mmol/L Normal 98-107 [facility] Comment on above: Performed By: #### H EMDF, LFT3, BMP3, ETOH4 ####[address] [place], [place] Potassium molar conc 4.3 mmol/L Normal 3.5-5.1 [facility] Comment on above: Performed By: #### H EMDF, LFT3, BMP3, ETOH4 ####[facility] [facility] [place] [address] Sodium 139 mmol/L Normal 137-145 [facility] Comment on above: Performed By: #### H EMDF, LFT3, BMP3, ETOH4 ####[id number] [facility] [place] [address] Drugs of Abuseon 04-11-2018 Opiates, Ur Positive Normal [facility] Comment on above: Performed By: #### D RGA4, THC4 ####[address] [facility] [place] Phencyclidine (PCP), Ur Negative Normal [facility] Comment on above: Result Comment: The [...] procedures. Performed By: #### Elaine MCDERMOTT, THC4 ####[address] [facility] [place] Cocaine, Ur Negative Normal [facility] Comment on above: Performed By: #### Elaine MCDERMOTT, THC4 ####[address] [facility] [address] Methadone, Ur Negative Normal [facility] Comment on above: Performed By: #### Elaine MCDERMOTT, THC4 ####[address] [facility] [address] Amphetamines, Ur Negative Normal [facility] Comment on above: Performed By: #### Elaine USA4, THC4 ####[id number] [facility] [address] Benzodiazepines, Ur Negative Normal [facility] Comment on above: Performed By: #### Elaine MCDERMOTT, THC4 ####[address] Barbiturates, Ur Negative Normal [facility] Comment on above: Performed By: #### D SHARRON, THC4 ####[address] Oxycodone/Oxymorphine, Ur Negative Normal [facility] Comment on above: Performed By: #### D SHARRON, THC4 ####[address] Ethanol Serum/Plasmaon 04-11 Ethanol-Serum/Plasma < 0.010 Normal 0.000-0.010 [facility] Comment on above: Result Comment: NOTE : This result is for medical treatment only. Analysis performed using non-forensic procedures. Performed By: #### H EMDF, LFT3, BMP3, ETOH4 ####[address] Hemogram w/ Autodiffon 04-11 Abs Baso Cnt 0.1 10*3/uL Normal 0.0-0.2 [facility] Comment on above: Performed By: #### H EMDF, LFT3, BMP3, ETOH4 ####[address] Basophils/100 WBC Auto (Bld) 0.6 % Normal 0.0-2.0 [facility] Comment on above: Performed By: #### H EMDF, LFT3, BMP3, ETOH4 ####[address] Eosinophils 0.1 10*3/uL Normal 0.0-0.5 [facility] Comment on above: Performed By: #### H EMDF, LFT3, BMP3, ETOH4 ####[address] Eosinophils/100 leukocytes 0.5 % Low 1.0-6.0 [facility] Comment on above: Performed By: #### H EMDF, LFT3, BMP3, ETOH4 ####[address] Erythrocyte distribution width Auto Ratio (RBC) 13.1 % Normal 11.5-14.5 [facility] Comment on above: Performed By: #### H EMDF, LFT3, BMP3, ETOH4 ####[address] Erythrocytes (RBC) 5.79 10*6/uL Normal 4.40-5.90 [facility] Comment on above: Performed By: #### H EMDF, LFT3, BMP3, ETOH4 ####[address] Granulocytes/100 WBC (Bld) 78.4 % Normal 40.0-80.0 [facility] Comment on above: Performed By: #### H EMDF, LFT3, BMP3, ETOH4 ####[address] Hematocrit (HCT) 46.7 % Normal 40.0-52.0 [facility] Comment on above: Performed By: #### H EMDF, LFT3, BMP3, ETOH4 ####[address] Hemoglobin mass conc (Bld) 15.6 g/dL Normal 13.0-18.0 [facility] Comment on above: Performed By: #### H EMDF, LFT3, BMP3, ETOH4 ####[address] Lymphocytes 2.7 10*3/uL Normal 1.0-4.3 [facility] Comment on above: Performed By: #### H EMDF, LFT3, BMP3, ETOH4 ####[address] Lymphocytes/100 leukocytes 13.6 % Low 20.0-40.0 [facility] Comment on above: Performed By: #### H EMDF, LFT3, BMP3, ETOH4 ####[address] MCH 27.0 pg Normal 26.0-34.0 [facility] Comment on above: Performed By: #### H EMDF, LFT3, BMP3, ETOH4 ####[address] MCHC mass conc (RBC) 33.4 % Normal 32.0-36.0 [facility] Comment on above: Performed By: #### H EMDF, LFT3, BMP3, ETOH4 ####[address] MCV 80.7 fL Normal 80.0-98.0 [facility] Comment on above: Performed By: #### H EMDF, LFT3, BMP3, ETOH4 ####[address] Monocytes 1.4 10*3/uL High 0.0-0.8 [facility] Comment on above: Performed By: #### H EMDF, LFT3, BMP3, ETOH4 ####[address] Monocytes/100 leukocytes 6.9 % Normal 2.0-10.0 [facility] Comment on above: Performed By: #### H EMDF, LFT3, BMP3, ETOH4 ####[address] Neutrophils 15.4 10*3/uL High 1.8-7.0 [facility] Comment on above: Performed By: #### H EMDF, LFT3, BMP3, ETOH4 ####[address] Platelet mean volume (PMV) 9.4 fL Normal 7.4-10.4 [facility] Comment on above: Performed By: #### H EMDF, LFT3, BMP3, ETOH4 ####[address] Platelets 252 10*3/uL Normal 140-440 [facility] Comment on above: Performed By: #### H EMDF, LFT3, BMP3, ETOH4 ####[id number] [place], [place] WBC (Leukocytes) 19.7 10*3/uL High 3.6-10.7 [facility] Comment on above: Performed By: #### H EMDF, LFT3, BMP3, ETOH4 ####[address] Hepatic Functionon 8 Alanine aminotransferase (ALT) 43 U/L Normal 13-69 [facility] Comment on above: Performed By: #### H EMDF, LFT3, BMP3, ETOH4 ####[address] Alkaline phosphatase (ALP) 70 U/L Normal 38-126 [facility] Comment on above: Performed By: #### H EMDF, LFT3, BMP3, ETOH4 ####[address] Aspartate aminotransferase (AST) 21 U/L Normal 15-46 [facility] Comment on above: Performed By: #### H EMDF, LFT3, BMP3, ETOH4 ####[address] Bilirubin (direct) 0.0 mg/dL Normal 0.0-0.3 [facility] Comment on above: Performed By: #### H EMDF, LFT3, BMP3, ETOH4 ####[address] Bilirubin (total) 0.5 mg/dL Normal 0.2-1.3 [facility] Comment on above: Performed By: #### H EMDF, LFT3, BMP3, ETOH4 ####[address] Protein 7.8 g/dL Normal 6.3-8.2 [facility] Comment on above: Performed By: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 Encounter for screening for other viral diseases; Crohn's disease of colon with complication (HCC); Abnormal CT of the chest Start: 09-01-2023 End: 09-01-2023 Patient encounter procedure No Primary Care Physician [facility] Work Phone: Start: 08-28-2023 End: 08-28-2023 ambulatory No Primary Care Physician [facility] Work Phone: Start: 08-28-2023 End: 08-28-2023 Patient encounter procedure No Primary Care Physician [facility]-Radiology, [facility] Work Phone: Start: 08-28-2023 End: 08-28-2023 Patient encounter procedure No Primary Care Physician [facility] Work Phone: Start: 08-18-2023 End: 08-18-2023 Patient encounter procedure No Primary Care Physician [facility]-Cat Scan, [facility] Work Phone: Start: 08-13-2023 End: 08-13-2023 Patient encounter procedure No Primary Care Physician [facility]-Cat Scan, [facility] Work Phone: Start: 08-12-2023 Documentation procedure Jessica Jordan LPN [facility] Start: 07-30-2023 End: 08-03-[address] [facility] Start: 07-30-2023 End: 07-30-2023 Office outpatient new 60 minutes Polly Aviles DO Work Phone: [facility] Comment on above: Sjogren's syndrome, with unspecified organ involvement (HCC) (Primary Dx); Crohn's disease with complication, unspecified gastrointestinal tract location (HCC); Polyarthralgia; Shortness of breath; Dysphagia, unspecified type Start: 07-24-2023 Non-patient / Non-visit No Margaret lyons [facility] Physician [facility] Start: 07-23-2023 End: 07-23-2023 ambulatory No Primary Care Physician [facility] Work Phone: Start: 07-23-2023 End: 07-23-2023 Patient encounter procedure No Primary Care Physician [facility]-Pulmonary Services/Neurology Work Phone: Start: 07-08-2023 Non-patient / Non-visit No Margaret lyons [facility] Physician [facility] Start: 07-08-2023 End: 07-08-2023 Patient encounter procedure No Primary Care Physician [facility]-Cardiovascular Services Work Phone: Start: 06-17-2023 End: 06-17-2023 ambulatory No Primary Care Physician [facility] Work Phone: Start: 06-17-2023 End: 06-17-2023 Patient encounter procedure No Primary Care Physician [facility]-Laboratory, [facility] Start: 06-17-2023 End: 06-17-2023 Patient encounter procedure No Primary Care Physician [facility] Work Phone: Start: 06-11-2023 Telephone encounter Apryl castaneda MD Work Phone: [facility] Rheumatology Comment on above: Advice Only Start: 04-20-2023 End: 04-20-2023 Patient encounter procedure No Primary Care Physician [facility] Work Phone: Start: 03-27-2023 End: 03-27-2023 Patient encounter procedure No Primary Care Physician [facility]-Laboratory Work Phone: Start: 03-03-2023 End: 03-03-2023 ambulatory No Primary Care Physician [facility] Work Phone: Start: 03-03-2023 End: 03-03-2023 Patient encounter procedure No Primary Care Physician [facility] Start: 12-23-2022 End: 12-23-2022 Patient encounter procedure No Primary Care Physician [facility] Gastroenterology Start: 11-27-2022 End: 11-27-2022 ambulatory [facility] Work Phone: [facility] Work Phone: Start: 11-27-2022 End: 11-27-2022 Patient encounter procedure [facility] Work Phone: [facility]-Laboratory Start: 11-13-2022 End: 11-13-2022 ambulatory [facility] Work Phone: [facility] Work Phone: Start: 11-13-2022 End: 11-13-2022 Patient encounter procedure [facility] Work Phone: [facility]-Laboratory Start: 11-07-2022 Telephone encounter Reinaldoiris mcmahan PA-C Work Phone: [facility] Comment on above: Results Start: 11-06-2022 End: 11-06-2022 ambulatory SILVIA NUNEZ Facility:[facility] Start: 11-06-2022 End: 11-06-2022 Office outpatient visit 15 minutes Edward Powell APRN.CNP Work Phone: [facility] Comment on above: Viral illness (Prima ry Dx) Start: 10-10-2022 End: 10-10-2022 Patient encounter procedure [facility] Work Phone: [facility] Start: 09-26-2022 End: 09-26-2022 Patient encounter procedure [facility] Work Phone: [facility] Start: 09-11-2022 End: 09-11-2022 Patient encounter procedure [facility] Work Phone: [facility] Start: 09-11-2022 Non-patient / Non-visit [facility] Work Phone: [facility] Start: 09-11-2022 End: 09-11-2022 Admission to same day surgery center [facility] Work Phone: [facility]-Endoscopy Start: 08-26-2022 End: 08-26-2022 Patient encounter procedure [facility] Work Phone: [facility] Start: 08-14-2022 End: 08-15-2022 ambulatory [facility] Start: 08-05-2022 End: 08-05-2022 Patient encounter procedure [facility] Work Phone: [facility]-Laboratory, Specimen Start: 07-15-2022 End: 07-15-2022 ambulatory [facility] Work Phone: [facility] Work Phone: Start: 07-15-2022 End: 07-15-2022 Patient encounter procedure [facility] Work Phone: [facility] Start: 05-22-2022 End: 05-22-2022 Emergency department patient visit [facility] Work Phone: [facility]-Emergency Department Start: 05-21-2022 End: 05-21-2022 Emergency department patient visit [facility] Work Phone: [facility]-Emergency Department Start: 03-19-2022 End: 03-19-2022 Patient encounter procedure [facility] Work Phone: [facility] Start: 03-17-2022 End: 03-17-2022 [facility] Start: 03-11-2022 End: 03-11-2022 Patient encounter procedure [facility] Work Phone: [facility] Start: 03-05-2022 Telephone encounter Reinaldo CoyC Work Phone: [facility] Comment on above: Results Start: 03-04-2022 End: 03-04-2022 ambulatory EDWARD POWELL Facility:[facility] Start: 03-04-2022 End: 03-04-2022 ambulatory SILVIA NUNEZ Facility:[facility] Start: 03-04-2022 End: 03-04-[address] 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: [facility] Comment on above: Viral illness (Prima ry Dx) Start: 02-21-2022 End: 02-21-2022 Patient encounter procedure [facility] Work Phone: [facility] Start: 11-22-2021 End: 11-22-2021 Emergency department patient visit [facility] Work Phone: [facility]-Emergency Department Start: 04-11-2018 Emergency department patient visit [facility] Procedures Date Procedure Procedure Detail Performing Clinician [...] of abdomen and pelvis with intravenous contrast [facility] Work Phone: Start: 03-11-2022 X-ray of eye for foreign body [facility] Work Phone: Start: 03-11-2022 MRI of cervical spine V [facility] Work Phone: Start: 02-21-2022 X-ray of cervical spine [facility] Work Phone: Start: 11-22-2021 CT cervical spine wi thout contrast [facility] Work Phone: Start: 11-22-2021 Plain chest X-ray [facility] Work Phone: Lactoferrin measurement [facility] Work Phone: Plan of Treatment Date Care Activity Detail Author Start: 2031 Zoster Vaccines (1 of 2) Zoste r Vaccines (1 of 2) [facility] Start: 05-27-2026 Diabetes mellitus screening Diabetes Screening [facility] Start: 07-17-2025 Influenza vaccination [facility] Start: 06-03-2025 Hepatic function panel [facility] Start: 06-03-2025 End: 06-03-2025 [facility] Start: 06-03-2025 Bacteria identified in Blood by Culture Blood Culture [facility] Start: 06-03-2025 Bacteria identified in Urine by Culture Urine Culture [facility] Start: 11-03-2024 End: 11-03-2024 Patient encounter procedure 11/03/2024 10:30 AM EST Office Visit [facility] [address] [place] [address] [place] [address] Polly Aviles DO [address] [place] [phone] [facility] Start: 07-17-2024 COVID-19 Vaccine ( season) COVID-19 Vaccine ( season) [facility] Start: 07-17-2024 COVID-19 Vaccine ( season) COVID-19 Vaccine ( season) [facility] Start: 07-17-2024 Influenza vaccination Influenza Vacc ine (#1) [facility] Start: 05-17-2024 End: 05-17-2024 Patient encounter procedure 05/17/2024 10:15 AM EDT Office Visit [facility] [address] [place] [address] [place] [phone] Polly Aviles DO [address] [place] [address] [phone] [facility] Start: 03-08-2024 Patient discharge [facility] Start: 01-11-2024 Measurement of substance [facility] Start: 12-21-2023 [facility] Start: 11-26-2023 End: 11-26-2023 Patient encounter procedure 11/26/2023 10:30 AM EST Office Visit [facility] [address] [place] [address] Medical [place] [phone] Polly Aviles DO [address] [place] [phone] [facility] Start: 09-29-2023 Anes esoph thyrd lar ynx trach & lymph neck 1yr ANESTH NECK ORGAN 1YR/> [facility] Start: 09-29-2023 Laryngoscopy w/biops y microscope/telescope LARYNGOSCOPY W/BX & OP SCOPE [facility] Start: 09-29-2023 Patient discharge [facility] Start: 09-01-2023 Patient referral [facility] Work Phone: Start: 08-13-2023 End: 08-13-2023 Patient encounter procedure 08/13/2023 10:00 AM EDT Office Visit [facility] Medicine [address] [place] [address] [place] [address] Polly Aviles DO [address] [place] [id number] [facility] Start: 07-17-2023 Influenza vaccination [facility] Start: 09-11-2022 Colonoscopy w/biopsy single/multiple COLONOSCOPY AND BIOPSY [facility] Start: 09-11-2022 Egd transoral biopsy single/multiple EGD BIOPSY SINGLE/MULTIPLE [facility] Start: 09-11-2022 Patient discharge [facility] Start: 07-17-2022 Influenza vaccination [facility] Start: 07-15-2022 Nfct agnt genotyp nu cleic acid hepatitis c virus GENOTYPE DNA/RNA HEP C [facility] Work Phone: Start: 03-19-2022 Patient referral [facility] Work Phone: Start: 11-16-2021 DEPRESSION ASSESSMENT DEPRESSION ASS ESSMENT [facility] Start: 2016 LIPID SCREEN LIPID SCREEN [facility] Start: 2003 DTaP/Tdap/Td Vaccine s (1 - Tdap) DTaP/Tdap/Td Vaccines (1 - Tdap) [facility] Start: 2000 DTaP/Tdap/Td Vaccine s (1 - Tdap) DTaP/Tdap/Td Vaccines (1 - Tdap) [facility] Start: 2000 Hepatitis A Vaccines (1 of 2 - Risk 2-dose series) Hepatitis A Vaccines (1 of 2 - Risk 2-dose series) [facility] Start: 2000 Hepatitis B Vaccines (1 of 3 - 19+ 3-dose series) Hepatitis B Vaccines (1 of 3 - 19+ 3-dose series) [facility] Start: 2000 Pneumococcal Vaccine : Ped or At-Risk (1 of 2 - PCV) Pneumococcal Vaccine: Ped or At-Risk (1 of 2 - PCV) [facility] Start: 2000 Urine microalbumin profile DTAP,TDAP ,TD (1 - Tdap) [facility] Start: 1999 HEPATITIS C SCREENING HEPATITIS C [facility] Start: 1999 Hepatitis C screening Hepatitis C [facility] Start: 1999 HIV SCREENING HIV SCREENING [facility] Start: 1996 HIV screening HIV Screening [facility] Start: 1994 Varicella vaccination Varicell a Vaccines (1 of 2 - 13+ 2-dose series) [facility] Start: 1993 Adult depression scr eening assessment [facility] Start: 1987 PNEUMOCOCCAL (1 - PCV) PNEUMOCOCCAL (1 - PCV) [facility] Start: 1987 Pneumococcal Vaccine : Ped or At-Risk (1 - PCV) Pneumococcal Vaccine: Ped or At-Risk (1 - PCV) [facility] Start: 1987 Pneumococcal Vaccine : Ped or At-Risk (1 of 2 - PCV) Pneumococcal Vaccine: Ped or At-Risk (1 of 2 - PCV) [facility] Start: 1987 Pneumococcal Vaccine : Pediatrics (0 to 5 Years) and At-Risk Patients (6 to 64 Years) (1 - PCV) Pneumococcal Vaccine: Pediatrics (0 to 5 Years) and At-Risk Patients (6 to 64 Years) (1 - PCV) [facility] Start: 1986 COVID-19 Vaccine (#1) COVID-19 Vacci ne (#1) [facility] Start: 1986 COVID-19 VACCINE (1) COVID-19 VACCIN E (1) [facility] Start: 1984 History and physical examination, annual for health maintenance Wellness Visit [facility] Start: 1982 MMR Vaccines (1 of 1 - Standard series) MMR Vaccines (1 of 1 - Standard series) [facility] Start: 1982 Varicella vaccination Varicell a Vaccines (1 of 2 - 2-dose childhood series) [facility] Start: 1981 COVID-19 VACCINE (#1) COVID-19 VACCI NE (#1) [facility] Start: 1981 HEPATITIS B (1 of 3 - 3-dose series) HEPATITIS B (1 of 3 - 3-dose series) [facility] Start: 1981 Hepatitis B Vaccines (1 of 3 - 3-dose series) Hepatitis B Vaccines (1 of 3 - 3-dose series) [facility] Start: 1981 HIV screening HIV Screening [facility] Start: 1981 Lipid panel Lipid Panel [facility] Start: 1981 Tetanus vaccination Tetanus: Every 1 0yrs [facility] Start: 1981 Yearly Adult Physical Yearly Adult P [facility] Alanine aminotransfe rase [Enzymatic activity/volume] in Serum or Plasma [facility] Albumin [Mass/volume ] in Serum or Plasma [facility] Alkaline phosphatase [Enzymatic activity/volume] in Serum or Plasma [facility] Amphetamines [Presen ce] in Urine by Screen method >1000 ng/mL [facility] End: 07-30-2024 Anti-cyclic citrullinated peptide antibody level [facility] Antibody Lab Add-On Polyarthralgia 1 Occurrences starting 07/30/2023 until 07/30/2024 [facility] Comment on above: 1 Occurrences starti ng 07/30/2023 until 07/30/2024 Anti-cyclic citrulli nated peptide antibody level [facility] Antibody Lab Add-On Polyarthralgia 07/30/2023 9:57 AM EDT [facility] End: 07-30-2024 Antibody to SS-A measurement Sjogrens Antibodies (Ro52,Ro60,SSB) Lab Routine Sjogren's syndrome, with unspecified organ involvement (HCC) Polyarthralgia 1 Occurrences starting 07/30/2023 until 07/30/2024 [facility] Work Phone: Comment on above: 1 Occurrences starti ng 07/30/2023 until 07/30/2024 Antibody to SS-A measurement Sjogrens Antibodies (Ro52,Ro60,SSB) Lab Routine Sjogren's syndrome, with unspecified organ involvement (HCC) Polyarthralgia 07/30/2023 9:57 AM EDT [facility] Benzodiazepine measurement, urine [facility] Bilirubin, total measurement [facility] Bilirubin.direct [Mass/volume] in Serum or Plasma [facility] Cocaine measurement, urine [facility] Colonoscopy [facility] Cortisol [Mass/volum e] in Serum or Plasma [facility] End: 05-27-2025 Drug Screen, Urine Drug Screen, Urine Lab STAT STAT (Lab) for 1 Occurrences starting 05/27/2025 until 05/27/2025 [facility] Work Phone: Comment on above: STAT (Lab) for 1 Occ urrences starting 05/27/2025 until 05/27/2025 End: 05-27-2025 Extra Urine Nickerson Tube Extra Urine [facility] Lab Timed Once for 1 Occurrences starting 05/27/2025 until 05/27/2025 [facility] Work Phone: Comment on above: Once for 1 Occurrenc es starting 05/27/2025 until 05/27/2025 fentaNYL [Presence] in Urine by Screen method [facility] Follitropin and Lutr opin panel [Units/volume] - Serum or Plasma [facility] End: 09-11-2024 Hepatitis C viral load Hepatitis C Virus PCR, Blood, Quantitative Lab Routine Polyarthralgia Encounter for screening for other viral diseases 1 Occurrences starting 09/11/2023 until 09/11/2024 [facility] Work Phone: Comment on above: 1 Occurrences starti ng 09/11/2023 until 09/11/2024 Hepatitis C viral load Hepatitis C Virus PCR, Blood, Quantitative Lab Routine Polyarthralgia 09/11/2023 11:15 AM EDT [facility] Influenza virus A an d B RNA and SARS-CoV-2 (COVID-19) N gene panel - Respiratory specimen by MEME with probe detection COVID WITH FLUA+B, ROUTINE Microbiology Routine Viral illness 03/04/2022 11:38 AM EDT [facility] Work Phone: Inhalation bronchial challenge testing [facility] Lactoferrin [Presenc e] in Stool by Immunoassay [facility] Work Phone: Methadone measuremen t, urine [facility] Microscopic urinalysis [facility] End: 08-03-2025 MR Hand - right WO and W contrast IV MR Hand Right With And Without Contrast Imaging Routine Polyarthralgia 1 Occurrences starting 08/03/2024 until 08/03/2025 [facility] Work Phone: Comment on above: 1 Occurrences starti ng 08/03/2024 until 08/03/2025 Organism count, microscopic method [facility] Patient Education [facility] Work Phone: Patient referral [facility] Work Phone: Phencyclidine [Prese nce] in Urine [facility] Procalcitonin [Mass/volume] in Serum or Plasma by Immunoassay [facility] Procedure [facility] Prolactin measurement [facility] Prostate specific an tigen measurement [facility] Protein measurement [facility] Work Phone: End: 07-30-2024 Rheumatoid factor, quantitative Rheumatoid factor Lab Add-On Polyarthralgia 1 Occurrences starting 07/30/2023 until 07/30/2024 [facility] Comment on above: 1 Occurrences starti ng 07/30/2023 until 07/30/2024 Tobacco use cessatio n education [facility] Tobacco use cessatio n education [facility] Tobacco use cessatio n education [facility] Tobacco use cessatio n education [facility] Total protein measurement [facility] End: 05-27-2025 Urinalysis complete W Reflex Culture panel - Urine [facility] Work Phone: Comment on above: Once (Lab) for 1 Occ urrences starting 05/27/2025 until 05/27/2025 Urine cannabinoid measurement [facility] Urine culture [facility] Urine microscopy: epithelial cells [facility] Urine microscopy: re d cells [facility] Urine opiate measurement [facility] End: 07-30-2024 Videofluoroscopy swallow XR Modifed Barium Swallow Imaging Routine Sjogren's syndrome, with unspecified organ involvement (HCC) Dysphagia, unspecified type 1 Occurrences starting 07/30/2023 until 07/30/2024 [facility] Comment on above: 1 Occurrences starti ng 07/30/2023 until 07/30/2024 White blood cell count [facility] Payers Date Payer Category Payer Legal Liability / Liability Insurance ACCIDENT RELATED NON-MEDICARE [id number] 2025 Medicare [id number] 2024 Self-pay [id number] 2022 Medicaid [id number] 2022 [facility] UE/PREF/HMO/PPO [id number] 2022 [employer] [place] [employer] [facility] [id number] 2022 Unknown 2022 Unknown [id number] 2021 Medicaid [employer] MEDICA[employer] [id number] 2021-Present [phone] [address] [place] [address] Medicaid [id number] 2021 Medicaid [id number] 2021 Unknown [id number] 1981 Unknown [id number] 2.16.840.1.017341.3.579.2 .479 1981 Unknown [id number] 2.16840.1.127945.3.579.2 .903 1981 Unknown [id number] 2.840.1.442107.3.579.2 .903 1981 Unknown [id number] 2.16.840.1.633042.3.579.2 .903 1981 Unknown [id number] 2.16.840.1.582379.3.579.2 .1981 Unknown [id number] 2.16.840.1.993939.3.579.2 .1981 Unknown [id number] 2.16.840.1.639015.3.579.2 .1981 Unknown [id number] 2.16.840.1.654897.3.579.2 .1981 Unknown [id number] 2.840.1.224592.3.579.2 .1981 Unknown [id number] 2..840.1.805407.3.579.2 .1981 Unknown [id number] 2.840.1.355241.3.579.2 .1981 Unknown [id number] 2.840.1.381098.3.579.2 .1981 Unknown [id number] 2.840.1.759468.3.579.2 .1981 Unknown [id number] 2.840.1.482969.3.579.2 .1243 Unknown [id number] 2.840.1.870371.3.579.2 .462 Unknown [id number] 2.16840.1.299362.3.579.2 .462 Unknown [id number] 2.16840.1.708781.3.579.2 .462 Unknown [id number] 2.16.840.1.454173.3.579.2 .462 Unknown [id number] 2.16840.1.757262.3.579.2 .462 Unknown [id number] 2.16840.1.321587.3.579.2 .462 Unknown [id number] 2.16.840.1.370661.3.579.2 .462 Unknown [id number] 2.16.840.1.708588.3.579.2 .462 Unknown [id number] 2.16.840.1.568795.3.579.2 .462 Unknown [id number] 2.16.840.1.946364.3.579.2 .462 Unknown [id number] 2.16.840.1.074191.3.579.2 .462 Unknown [id number] 2.16.840.1.003781.3.579.2 .462 Unknown [id number] 2.16.840.1.176713.3.579.2 .462 Unknown [id number] 2.16.840.1.984842.3.579.2 .462 Unknown [id number] 2.16.840.1.481012.3.579.2 .462 Social History Date Type Detail Facility Start: 11-06-2022 End: 06-03-2025 Tobacco smoking status NHIS Smokes tobacco daily [facility] Work Phone: History of tobacco use Cigarette Smoker [facility] Work Phone: Start: 04-12-2018 End: 03-04-2022 Alcohol intake Current non-drinker of alcohol (finding) [facility] Start: 05-29-2015 History SDOH Alcohol Comment past alcohol use [facility] Start: 1980 Sex Assigned At Not on file [facility] Start: 02-22-2022 End: 03-04-2022 Exposure to SARS-CoV-2 (event) Not sure [facility] Start: 02-21-2022 End: 12-21-2023 Tobacco smoking status MOIS Unknown if ever smoked [facility] Start: 03-21-2021 Occasional [facility] Start: 03-21-2021 Cocaine;Heroin ;Marijuan a [facility] Start: 03-21-2021 Cigarettes [facility] Start: 1980 Sex Assigned At Male [facility] Start: 11-06-2022 End: 09-11-2023 Cigarettes smoked current (pack per day) - Reported 1 [facility] Start: 11-06-2022 End: 07-30-2023 Tobacco use and exposure Smokeless tobacco non-user [facility] Start: 07-30-2023 End: 09-11-2023 Gender identity Not on file [facility] Start: 01-26-2025 Sex Male (finding) [facility] Medical Equipment Procedure Code Equipment Code Equipment Origin al Text Equipment Identifier Dates Bard 3dmax Mesh [id number]_[facility] Start: 07-19-2019 Comment on above: Description: Bard 3DMax Mesh Knitted Keshav ypropylene pre-formed mesh Large Right 4.3 x 6.3 (10.8cm x 16.0cm) Mesh 3dmax Large Polypropylene 6x4in Surgical Nonabsorbable Patch Preform - [id number] Start: 02-14-2021 Comment on above: Description: 10.8 cm x 16.0 cm Goals Date Patient Goal Desired Activity /State Functional Status Date Assessment Result Facility 05-27-2025 [facility] s everity rating scale screener - recent [C-SSRS] [facility] Work Phone: Mental Status Date Assessment Result Facility 06-03-2025 Cognitive function Level Of Cons ciousness Awake;Appropriate;Follows Commands [facility] Work Phone: 03-08-2024 Cognitive function Voice/Name [facility] Work Phone: 09-29-2023 Cognitive function Level Of Cons ciousness Awake;Alert;Appropriate [facility] Work Phone: 09-29-2023 Cognitive function Voice/Name [facility] Work Phone: 09-11-2022 Cognitive function Level Of Cons ciousness Awake;Drowsy [facility] Work Phone: 09-11-2022 Cognitive function Patient Orien tation Person;Place;Time [facility] Work Phone: 11-22-2021 Cognitive function Level Of Cons ciousness Awake;Alert;Appropriate;Follow s Commands [facility] Work Phone: Clinical Notes 03-04-2022 to 06-03-2025 Polly Aviles, - 04/19/2025 11:31 AM EDTWiLilibeth guido VALERI - 04/19/2025 11:21 AM EDT Note Date & Type Note Facility 06-03-2025 Radiology Diagnostic study note [facility] Imaging Services [address] [place] [address] Chest PA and Lateral MR#: [id number] Acct: [id number] Name: JOSE MCNAMARA Rep #: [id number] : 1980 M 45 From: Andie Dykes MD PCP: Dr. Josselyn Galindo MD Status: REG ER Study:Chest PA and Lateral Date of Exam: 06/03/25 Exam# [id number] Ordering Dr: Jimmy Traylor DO PROCEDURE: CHEST [...] IMPRESSION: COPD. NO ACUTE FINDINGS. Reading Location: [id number] CC: Dr. Josselyn Galindo MD; Dr. Jimmy Traylor DO ~ Medical Driver: Signed [facility] 04-19-2025 Note RHEUMATOLOGY FOLLOW- UP VISIT Patient Name: Jose Mcnamara : 1980 Medical Record: [id number] PCP: Josselyn Galindo MD Referring provider: CHIEF [...] any questions or concerns. Polly Aviles DO [facility] [place] [address] O: [phone] F: [phone] The above recommendations were discussed with the [...] Portions of this note were created with [employer]. Every effort was made to [...] (RR 0-0.9). Remaining comprehensive panel normal. Studies [facility] with negative RF/CCP and repeat Sjogren antibodies [...] stopped. 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 [facility] 04-19-2025 History of Present illness Narrative Images from the original note were not included. RHEUMATOLOGY FOLLOW-UP VISIT Patient Name: Jose Mcnamara : 1980 Medical Record: [id number] PCP: Josselyn Galindo MD Referring provider: CHIEF [...] any questions or concerns. Polly Aviles DO [facility] [address] [place] [address] O: [phone] F: [phone] The above recommendations were discussed with the [...] Portions of this note were created with Music Kickup Dictation [employer]. Every effort was made to [...] (RR 0-0.9). Remaining comprehensive panel normal. Studies [facility] with negative RF/CCP and repeat Sjogren antibodies [...] stopped. 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 [...] declined additional copy documented in this encounter [facility] 02-17-2025 Evaluation note Diagnosis Onset Date Resolution [...] 2025 9:53am Urinary hesitancy chronic March 9:53am [facility] Work Phone: 1(695) 172-110004-04-2025 Evaluation note* Diagnosis Onset Date Resolution Status [...] 10:00am Hepatitis C inactive May 23 10:00am [facility] Work Phone: 1([phone]) 629-212902-11-2025 Chief complaint+Reason for visit Narrative * Chief [...] testosterone in male April 04, 2025 9:53am [facility] Work Phone: 1(335) 558-853002-11-2025 Chief complaint+Reason for visit Narrative * Chief [...] 9:53am Urinary hesitancy April 04, 2025 9:53a [facility] Work Phone: 1([phone]) 476-369002-11-2025 Evaluation note* Diagnosis Onset Date Resolution Status Admit Date DDD (degenerative disc disease), cervical acute December 10:21am Seizure-like activity acute [facility] 2024 10:21am Bipolar disorder chronic December 27, 2024 10:21am Celiac disease chronic December 172024 10:21am COPD (chronic obstructive pulmonary disease) chronic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
--- NOTE | 2025-06-03 20:52 | ECHOD_ITS ---
Reason For Study Reason For Study: EDEMA Procedure This was a 2D Doppler, Color Flow transthoracic echocardiogram. Exam performed portable in patient room. Left Ventricle Normal LV size. Left ventricular systolic function is normal. The left ventricular ejection fraction is 65 %. No regional wall motion abnormalities noted. Right Ventricle Normal RV size. Normal systolic function. Mitral Valve Normal mitral valve. Tricuspid Valve Normal tricuspid valve. Mild tricuspid valve insufficiency. Pulmonary artery systolic pressure is 18 mmHg. Aortic Valve Trisinus/trileaflet aortic valve. Pulmonic Valve Normal pulmonic valve. Great Vessels Normal aortic root. The pulmonary artery is normal size. Inferior vena cava collapse with respiration. Pericardium/Pleural No pericardial effusion. MMode/2D Measurements & Calculations LVIDd: 4.6 cm IVSd: 1.1 cm Ao root diam: 3.2 cm LVIDs: 2.9 cm LVPWd: 1.1 cm RVDd: 3.4 cm FS: 37.1 % LAV(MOD-bp): 42.5 ml LVAd ap4: 25.8 cm2 LVAd ap2: 25.5 cm2 LAV(MOD-bp) Indexed: 22.9 ml/m2 LVLd ap4: 7.7 cm LVLd ap2: 8.4 cm LAV(MOD-sp2): 39.7 ml EDV(MOD-sp4): 73.4 ml EDV(MOD-sp2): 67.8 ml LAV(MOD-sp4): 41.1 ml EDV(sp4-el): 73.5 ml EDV(sp2-el): 65.5 ml LVAs ap4: 12.6 cm2 LVAs ap2: 13.0 cm2 LVLs ap4: 6.0 cm LVLs ap2: 7.0 cm ESV(MOD-sp4): 23.1 ml ESV(MOD-sp2): 20.8 ml ESV(sp4-el): 22.5 ml ESV(sp2-el): 20.5 ml EF(MOD-sp4): 68.5 % EF(MOD-sp2): 69.3 % EF(sp4-el): 69.4 % SV(MOD-sp4): 50.3 ml SV(MOD-sp2): 47.0 ml SV(sp4-el): 51.0 ml SI(MOD-sp4): 27.1 ml/m2 SI(MOD-sp2): 25.3 ml/m2 LA A4 area: 16.8 cm2 LA dimension(2D): 3.9 cm RA A4 area: 15.0 cm2 TAPSE: 2.4 cm Time Measurements MV dec time: 0.20 sec Doppler Measurements & Calculations MV E max beto: 92.7 cm/sec Lat Peak E' Beto: 11.1 cm/sec Med Peak E' Beto: 10.4 cm/sec MV A max beto: 91.8 cm/sec E/E' lat: 8.4 E/E' med: 8.9 MV E/A: 1.0 Ao V2 max: 144.2 cm/sec LV V1 max: 139.5 cm/sec MV dec slope: 459.4 cm/sec2 Ao max P.3 mmHg LV V1 max P.8 mmHg Ao V2 mean: 97.9 cm/sec LV V1 mean P.0 mmHg Ao mean P.4 mmHg LV V1 mean: 92.0 cm/sec Ao V2 VTI: 34.3 cm LV V1 VTI: 31.3 cm AV (velocity ratio): 0.91 PA V2 max: 95.7 cm/sec TR max beto: 199.7 cm/sec PA V2 mean: 74.2 cm/sec TR max P.9 mmHg ECHO/Echo Complete Interpretation Summary Normal LV size. Left ventricular systolic function is normal. The left ventricular ejection fraction is 65 %. Structurally normal valves. Ordering Physician: Emy Lyons Referring Physician: Meghana Galindo Performed By: Clifford Christy, RCS
[2025-06-03] MEDS: Divalproex (ER) 500 MG Tablet PO (21:55)
[2025-06-03] MEDS: OLANZapine 5 MG/TAB TAB.RAPDIS PO (21:58)
[2025-06-03 22:02] LABS: Ammonia 83.2 umol/L (16-60); Valproic Acid (Depakene) Level 46 ug/mL (50-100)
[2025-06-03] MEDS: 0.9% Saline Lock 10 ML Syringe IV (22:03)
[2025-06-04] VITALS (13 sets, daily range): BP systolic 103–134; BP diastolic 66–83; PULSE 55–68; RESP 16–20; TEMP 36.5–36.6; O2SAT 55–97; BMI 22.5
[2025-06-04] MEDS: 0.9% Saline Lock 10 ML Syringe IV ×4 (00:09→23:45)
--- NOTE | 2025-06-04 00:24 | EX.ED.DYSGE1 ---
HPI History of Present Illness Chief Complaint: Edema Narrative Narrative: Patient is a 45-year-old male with past medical history of Crohn's disease, Sjogren's disease, alcohol use, COPD, seizure, celiac disease, bipolar disorder, anxiety who presented to the emergency department with a chief complaint of shortness of breath and lower extremity swelling. Patient notes that he was just here earlier today and left AGAINST MEDICAL ADVICE. He states that after talking with significant other and others they advised him to return to the emergency department immediately. Patient has no other complaints. [facility] Medical History Urinary hesitancy Erectile dysfunction Low testosterone in male Pain Crohn's disease Sjogren's disease Chest congestion Loss of hearing Wears glasses Marijuana use Alcohol use Substance abuse Injury of back Migraine headache Dietary restriction Difficulty swallowing COPD (chronic obstructive pulmonary disease) History of edema History of echocardiogram Enlarged heart History of diverticulitis Seizure History of blood transfusion Celiac disease Positive GETACHEW (antinuclear antibody) GERD (gastroesophageal reflux disease) Bipolar disorder Depression Anxiety Arthritis Injury of head and neck Smoker Hoarseness Abdominal pain Enlarged heart Migraines Ulcer Hearing problem Back problem Alcohol abuse Infective endocarditis Drug abuse Home Medications ?Medication ?Instructions ?Recorded ?Last Taken ?Type fluvoxamine 100 mg tablet 100 mg PO QHS 08/06/18 Unknown History propranolol 20 mg tablet 20 mg PO BID 08/06/18 Unknown History olanzapine 5 mg tablet 5 mg PO QHS 06/17/23 Unknown History ondansetron 4 mg disintegrating 4 mg PO Q8H PRN nausea and 09/01/23 Unknown Rx tablet vomiting #30 tabs albuterol sulfate 90 mcg/actuation 2 puff inhalation Q6H PRN 01/07/24 Unknown Rx aerosol inhaler shortness of breath or wheezing #6.7 grams divalproex 500 mg tablet,delayed 500 mg PO BID 10/04/24 Unknown History release (Depakote) sucralfate 1 gram tablet 1 g PO Q6H #120 TABLETS 02/17/25 Unknown Rx buprenorphine 8 mg-naloxone 2 mg 1 tab sublingual TID 04/04/25 Unknown History sublingual tablet oxcarbazepine 600 mg tablet 1,200 mg PO BID 04/04/25 Unknown History sumatriptan succinate 50 mg tablet 50 mg PO Q2H PRN migraine headache 04/04/25 Unknown History testosterone 1 pump topical QDAY #75 grams 04/06/25 Unknown Rx gabapentin 300 mg capsule 300 mg PO BID #60 caps 05/02/25 Unknown Rx magnesium oxide 500 mg capsule 500 mg PO DAILY #30 caps 05/02/25 Unknown Rx dicyclomine 10 mg capsule 10 mg PO BID #60 caps 05/05/25 Unknown Rx alprazolam 1 mg tablet 1 mg PO BID PRN anxiety 1 month 05/25/25 Unknown Rx #60 tabs alprazolam 1 mg tablet (Xanax) 1 mg PO BID 06/03/25 Unknown History olanzapine 5 mg tablet (Zyprexa) 5 mg PO QHS 06/03/25 Unknown History prednisone 10 mg tablet 10 mg PO Q12H 06/03/25 Unknown History Allergy/AdvReac Type Severity Reaction Status Date / Time Penicillins Allergy Unknown Rash Verified 06/03/25 18:33 Family History Uncle Diabetes Aunt Diabetes Father Heart disease Alcohol abuse Enlarged heart Son Benign brain tumor Seizures Grandmother Seizures Other Anxiety Surgical History Hx of colonoscopy History of esophagogastroduodenoscopy (EGD) Hx of hernia repair History of facial surgery Social History household members: friend(s) current occupational status: employed current occupation: [employer], on FMLA currently due to abdominal problems Smoking Status: Current every day smoker tobacco type: cigarettes Tobacco: How many years used: 33 Electronic Cigarette Use: not used second hand exposure: No quit status: considering quitting alcohol intake: former year quit: 2010 substance use type: former substance user Date of last use: heroin - 2018, marijuana and sedatives caffeine: Yes what type of physical activity do you participate in: walking and weight training frequency: 1-2 times per week seatbelt use: always do you feel safe at home: Yes ROS ROS ED ROS Narrative Constitutional: Denies any fevers or chills Cardiovascular: Denies chest pain Respiratory: Complains of shortness of breath Abdomen: Denies nausea vomit diarrhea : Denies urinary symptoms Neurological: Numbness, wheeze, tingling Musculoskeletal: Denies back pain Skin: Denies any rashes or lesions EXAM Physical Exam Narrative Exam Narrative: General: Patient lying in bed rest comfortably did not appear to be in acute distress Head: Atraumatic, normocephalic Eyes: PERRL bilaterally, EOMI blood, no conjunctival injection noted Neck: Soft, supple, trachea midline Cardiovascular: Regular rate and rhythm Respiratory: Coarse breath sounds bilaterally Abdomen: Soft, nondistended, nontender to palpation Extremities: +5/5 strength noted in the bilateral upper and lower extremities, 1+ pitting edema in the bilateral lower extremities Neurological: Patient follow commands and that he was at [facility] years 2024 Skin: Warm, dry, patient does have redness to the anterior shins but states that this was this way since May 19 after sunburn Const Vital Signs: 06/03/25 18:31 06/03/25 18:38 06/03/25 18:45 Temperature 98.0 F Temperature Source Oral Pulse Rate 85 Respiratory Rate 16 Respiratory Effort Normal Non-Labored Respiratory Pattern Normal Blood Pressure 106/70 Blood Pressure Mean 82 Pulse Ox 90 91 Oxygen Delivery Method Room Air Nasal Cannula Oxygen Flow Rate (L/min) 2 06/03/25 19:00 06/03/25 19:20 06/03/25 19:30 Temperature 98.4 F Temperature Source Oral Pulse Rate 74 70 70 Respiratory Rate 13 13 16 Respiratory Effort Respiratory Pattern Blood Pressure 94/62 88/62 L 90/74 Blood Pressure Mean 72 70 79 Pulse Ox 91 91 92 Oxygen Delivery Method Nasal Cannula Nasal Cannula Nasal Cannula Oxygen Flow Rate (L/min) 2 2 2 06/03/25 19:59 06/03/25 20:00 Temperature 98.1 F Temperature Source Pulse Rate 65 70 Respiratory Rate 17 16 Respiratory Effort Respiratory Pattern Blood Pressure 95/61 95/63 Blood Pressure Mean 72 73 Pulse Ox 95 94 Oxygen Delivery Method Nasal Cannula Oxygen Flow Rate (L/min) 2 MDM MDM MDM Narrative Medical decision making narrative: Patient is a 45-year-old male who presented to the emergency department with a chief complaint of shortness of breath and returning for admission after this was recommended earlier today. I reviewed the patient's workup from earlier in the day which showed a leukocytosis of 19,000, hemoglobin stable at 15.1, platelet count of 222. Patient's D-dimer is normal at 0.27, sodium normal 141, potassium normal 4.8, creatinine was 0.65. Patient's AST and ALT were normal at 20 and 9 respectively with a normal total bilirubin of 0.20. Patient's proBNP elevated 465, procalcitonin was noted to be normal at 0.03. Patient urinalysis reviewed showed no evidence of infection, drug screen was presumptive positive for benzos and cannabis alcohol level less than 10. Patient's chest x-ray reviewed as well which showed COPD no acute findings. Patient was hypoxic when he arrived therefore he is placed on 2 L nasal cannula. Discussed case with hospitalist Dr. Lyons who originally discussed this case earlier with Dr. Roy ER physician. She states that she will admit the patient. Notified the patient he is agreeable course concerns answered. At this point in time there is no identifiable source infection he was already given IV antibiotics earlier in the evening which was Rocephin and azithromycin. Discharge Plan Dx/Rx/DC Orders Clinical Impression: Bipolar disorder, COPD (chronic obstructive pulmonary disease), Acute hypoxic respiratory failure, Bilateral leg edema Disposition Disposition: Acute Care Hospital [facility] Discharge Date/Time: 06/03/25 20:49
[2025-06-04 05:44] LABS: Hematocrit 44.0 % (40-54); Hemoglobin 14.2 g/dL (13.0-16.5); Immature Granulocytes Count 0.050 X10^3/uL (0.0-0.0); Mean Corp Hgb Conc 32.3 g/dL (32-36); Mean Corpuscular Volume 90.3 fL (80-94); Mean Platelet Vol. 11.4 fl (6.2-12.0); NRBC Flagged by Analyzer 0 % (0-5); Platelet Count 186 K/mm3 (150-450); RBC Distribution Width CV 13.4 % (11.6-14.6); RBC Distribution Width SD 44.6 fl (35.1-43.9); Red Blood Count 4.87 M/mm3 (4.6-6.2); White Blood Count 11.0 K/mm3 (4.4-11.0)
[2025-06-04 06:33] LABS: Anion Gap 8 (5-15); BUN 15 mg/dL (4-19); BUN/Creat Ratio 25.5 RATIO (10-20); Calcium,Total 8.3 mg/dL (7.6-11.0); Carbon Dioxide 31.2 mmol/L (21.0-32.0); Chloride 102 mmol/L (98-108); Estimated Creatinine Clearance 156.61 ml/min (50-250); Glucose 174 mg/dL (70-99); Magnesium 2.0 mg/dL (1.5-2.2); Potassium 4.4 mmol/L (3.3-5.1)
--- NOTE | 2025-06-04 07:11 | PCM.PN.HOSP ---
Reason for Visit Chief Complaint: Foot swelling Subjective Subjective Patient with increased oxygenation requirements from 4 to 6 L through the late evening into morning. Nursing staff and patient denied any acute events overnight. During evaluation patient intermittently fatigued and lethargic but will awaken and have appropriate discussions. Discussed lengthy recent ongoing evaluations including altered TSH and free T4 with evidence of central hypothyroidism in addition to concern for adrenal insufficiency with pending ACTH stim testing with need to temporarily hold IV steroids at last dose at midnight with resumption following in addition to elevated ammonia level with plan for initiation of lactulose and repeat levels as well as continued hemoglobin A1c rise with prediabetic status with change of diet to which patient was all amenable. Patient's blood pressure has continued to significantly improve on steroids and midodrine with plan as noted the patient to discontinue midodrine at this time. Patient denies fevers, chills, nausea, emesis, abdominal pain, chest pain or marked dyspnea. Objective Data Objective Data Vital Signs: Vital Signs Temp Pulse Resp BP Pulse Ox O2 Del Method O2 Flow Rate 97.9 F 64 16 108/72 55 Nasal Cannula 2 06/04/25 05:20 06/04/25 05:20 06/04/25 05:20 06/04/25 05:20 06/04/25 05:20 06/04/25 05:20 06/04/25 05:20 Oxygen Flow Rate (L/min) 2 Oxygen Delivery Method Nasal Cannula Weight: 152 lb 12.485 oz Body Mass Index (BMI) 22.5 Intake & Output: Intake and Output for Last 24 Hours 06/02/25 06/03/25 06/04/25 23:59 23:59 23:59 Intake Total 360 / 360 Output Total 350 / 350 Balance Lab / Micro Data 06/04/25 04:58 06/04/25 04:58 Labs: Laboratory Results - last 24 hr 06/03/25 21:37: Ammonia 83.2 H, Valproic Acid 46 L 06/04/25 04:58: WBC 11.0, RBC 4.87, Hgb 14.2, Hct 44.0, MCV 90.3, MCH 29.2, MCHC 32.3, RDW Std Deviation 44.6 H, RDW Coeff of Uzma 13.4, Plt Count 186, MPV 11.4, Immature Gran % (Auto) 0.500, Neut % (Auto) 89.1 H, Lymph % (Auto) 6.0 L, Cavalier % (Auto) 4.2, Eos % (Auto) 0.0, Baso % (Auto) 0.2, Absolute Neuts (auto) 9.8 H, Absolute Lymphs (auto) 0.66 L, Nucleated RBC % 0, Sodium 142, Potassium 4.4, Chloride 102, Carbon Dioxide 31.2, Anion Gap 8, BUN 15, Creatinine 0.59 L, Estim Creat Clear Calc 156.61, Est GFR (MDRD) Non-Af 123, BUN/Creatinine Ratio 25.5 H, Glucose 174 H, Calcium 8.3, Magnesium 2.0, TSH 0.263 L Micro: Microbiology 06/03/25 21:28 Mucosa - Nasopharyngeal Respiratory Panel (PCR) - Final Physical Exam Narrative General: More alert during initial evaluation, still awake and answering questions appropriately but little bit more tired on second exam HEENT: normocephalic Eyes: Anicteric, normal conjunctiva, extraocular movements grossly intact Neck: Supple Respiratory: Normal respiratory effort scattered wheezing Cardiovascular: Regular rate and rhythm GI: Soft, nondistended, little tender in left lower quadrant which he reports is his chronic pain and there is no rebound, guarding, rigidity Extremities: 1+ lower extremity edema bilaterally Musculoskeletal: Moving all extremities Neuro: No overt focal neurological deficits, intermittently has some jerking movements Skin: Has some peeling on the legs but very specifically sparing the feet and is consistent with sunburn, also some sunburn on chest, has some peeling around axilla that he reports is deodorant but could be a possible fungal component Psych: Cooperative Assessment & Plan Assessment/Plan (1) Hypoxia: PLAN: Plan The patient is a 45 y/o M w/ PMHx: IBS/Celiac disease/Crohn's disease/Sjogren's disease, Chronic migraine headaches, COPD, Tobacco use, Former polysubstance abuse with hepatitis C on chronic Suboxone therapy with history of previous infective endocarditis, Former EtOH abuse, Seizure disorder, Anxiety and depression/bipolar disorder/mood disorder, GERD who presents to the [facility] ED on 06/03/2025 with complaints of lower extremity swelling and noted to be hypoxic upon ED arrival. #1. Acute hypoxia of unclear significance complicated by underlying COPD, minimally elevated BNP and lower extremity swelling of unclear significance with lower suspicion for overt heart failure: Admitted to PCU given concern for hypotension, initially maintained saturations on 2 L however required increased supplementation up to 6 L through the evening and morning, respiratory full viral panel negative, blood culture x 2 pending per ED, urine culture without growth, CTA obtained to be cautious with no acute PE, retained secretions and bibasilar atelectasis compatible with passive/relaxation in atelectasis with increased risk for aspiration pneumonitis/pneumonia given secretions, stable mild emphysema, maintained on ATC DuoNeb therapy, as needed albuterol, continue oxygen supplementation with wean as possible, ABG requested, echocardiac requested as noted, continue bilateral lower extremity snug kyra wraps with elevation. Given findings on CTA ST evaluation requested. #2. Hypotension, suspected multifactorial including from sedating medications, suspected likely adrenal insufficiency: Patient with blood pressure decrease in the ED with no regimen administered at that time, sedated medications have been held and monitored or adjusted, WBC elevation completely corrected without intervention, procalcitonin normal, urine culture normal, blood culture pending to date, respiratory viral panel negative, echocardiogram is pending, TSH mildly decreased, FT4 obtained also also decreased 0.50 c/w central hypothyroidism with plan for ACTH stim testing already ordered and once this is obtained then opt to initiate levothyroxine. Initial ammonia 83.2, repeat level this a.m. also increased 88.6 with lactulose started with plan repeat level 06/05/2025. Upon presentation given concerns patient was initiated on IV hydrocortisone in addition to midodrine therapy. Given BP improvement 06/04/2025 will de-escalate off midodrine and continue to monitor. Will plan hold on IV hydrocortisone at midnight only temporarily to obtain ACTH stim testing with resumption following. Will continue to monitor daily weights with initial presentation 06/03/2025 weight 155 153, 06/04/[address] bilateral lower extremity snug kyra wraps with lower extremity elevation. #3. Prediabetes: Presentation with hyperglycemia but prior HgBA1c c/w prediabetes, repeat further increased 6.2%, will change to ADA diet with accu check with ISS. #4. Chart reported history of polysubstance abuse: Patient denies any ongoing alcohol or illicit drug usage, maintained on Suboxone, as noted recently prescribed Xanax by GI provider however given his substance abuse history this would best be de-escalated off which was lowered during presentation but again would benefit from outpatient evaluation with counseling/alternate medical management for his anxiety. #5. Anxiety and depression/mood disorder: Patient on significant amounts of psychiatric medication, will continue Zyprexa and Lovenox with hold for sedation, as noted also been prescribed Xanax outpatient for anxiety and abdominal component, would benefit from de-escalation and alternate regimen given sedate of/addictive nature. #6. Seizure disorder: Notes most recent seizure approximately 6 months prior, continued on Depakote and carbamazepine level, ammonia level as noted above has been elevated, lactulose initiated and will plan repeat level in AM, valproic acid level mildly low at 46, may need to consider alteration to regimen. #7. Chronic migraines: Patient normally on prophylactic propranolol regimen outpatient, held given hypotension, BP is improving however will hold off on resumption. #8. Crohn's disease, celiac disease, element of IBS: Patient with significant ongoing gastro issues following closely outpatient with Dr. Godwin, noted to have been on prednisone therapy since 2023 initially 20 mg recently stepdown to 10 mg with concern for adrenal insufficiency as noted above, maintained on stress dose steroids with plan for further evaluation as noted. From records it appears he also has been on Xanax potentially secondary to abdominal pain and anxiety, this has been decreased/altered given concern of possible contribution to hypotension. Would benefit from alternate regimen for anxiety especially given sedated nature/addictive nature of this medication. #9. Previous remote history of infective endocarditis with hepatitis C: Noted diagnosis back in 2009, completed antibiotic therapy, denied IV drug use, repeat echocardiogram pending as noted. Noted that he completed treatment for hepatitis C and was cleared many years previous. #10. Testosterone deficiency, chronic: Following with Dr. Pires outpatient, will continue patient testosterone topical application. Encouraged continued follow-up outpatient with endocrinology as previously arranged. #11. Tobacco Abuse: Encouraged cessation, inpatient consultation per RT, NR if desired. #12. GERD: Will continue patient on PPI and sucralfate home regimen. #13. DVT prophylaxis: Lovenox. Charges/Coding Visit Charges Inpatient E&M: 15415 Subs Hosp L3
[2025-06-04 08:10] LABS: Ammonia 88.6 umol/L (16-60)
--- NOTE | 2025-06-04 08:17 | CT_ITS ---
PROCEDURE: CTA CHEST W/WO CONTRAST 06/04/2025 REASON FOR EXAM: HYPOXIA, UNCLEAR ETIOLOGY, WORSENING TECHNIQUE: CTA axial imaging of the chest with intravenous contrast. Coronal and Sagittal reconstruction series were provided. 3D, 3D post processing, 3D reconstructions, Maximum intensity projection (MIPs) Volume rendering and Shaded surface rendering was provided. PATIENT PREPARATION: Per protocol CONTRAST: Isovue 370 VOLUME: 100mL One or more dose reduction techniques were used (e.g., Automated exposure control, adjustment of the mA and/or kV according to patient size, use of iterative reconstruction technique). RADIATION DOSE SUMMARY: DLP: 400 mGycm COMPARISON: Chest radiograph 06/03/2025. CT chest 08/18/2023. FINDINGS: Hardware: None. Lymph nodes: No axillary, mediastinal or hilar lymphadenopathy. Heart: Normal in size without pericardial effusion. The great vessels are normal in caliber. No significant coronary artery or thoracic aortic calcifications. Pulmonary Vessels: No central filling defect within the segmental or subsegmental pulmonary arteries. Lungs and Airways: Retained secretions within the central trachea. Mild emphysema with scattered areas of scarring, greatest in the biapical lungs. Mild bronchiectasis. Dependent atelectasis of the dependent lungs, [id number]. No significant pleural effusion. No pneumothorax. Upper Abdomen: Visualized portions of the upper abdominal viscera are unremarkable. Bones: Bone windows are unremarkable. CT/CTA Chest W/WO Contrast IMPRESSION: 1. No acute pulmonary embolism. 2. Retained secretions and bibasilar atelectasis, compatible with passive/relax ation atelectasis. Patient at risk for aspiration pneumonitis/pneumonia given retained secretions. 3. Stable mild emphysema. Reading Location: [id number]
[2025-06-04 08:22] LABS: Procalcitonin 0.04 ng/mL (<=0.10)
[2025-06-04 09:05] LABS: Pro- Brain NATRIURETIC PEPTIDE 414 pg/mL (<=450)
[2025-06-04] MEDS: Divalproex (ER) 500 MG Tablet PO ×2 (09:28→21:42)
[2025-06-04] MEDS: Magnesium Chloride 64 MG Delay Rel.Tablet 128 MG PO (09:29)
[2025-06-04 09:34] LABS: Base Excess 7 mmol/L (-2 to +2); FI02 6.0; PO2 63 mmHG (75-100); SITE L Radial; SO2 92 % (95-99)
[2025-06-04] MEDS: OLANZapine 5 MG/TAB TAB.RAPDIS PO (21:45)
[2025-06-05] VITALS (11 sets, daily range): BP systolic 106–119; BP diastolic 65–79; PULSE 59–70; RESP 16–18; TEMP 36.4–36.8; O2SAT 86–98; BMI 23.0
[2025-06-05] MEDS: Cosyntropin 0.25 MG in 0.9% Normal Saline (Pres. free 4 ML 150 MG IV (05:37)
[2025-06-05] MEDS: 0.9% Saline Lock 10 ML Syringe IV (05:38)
[2025-06-05 05:42] LABS: Hematocrit 44.5 % (40-54); Hemoglobin 14.1 g/dL (13.0-16.5); Immature Granulocytes Count 0.060 X10^3/uL (0.0-0.0); Mean Corp Hgb Conc 31.7 g/dL (32-36); Mean Corpuscular Volume 91.2 fL (80-94); Mean Platelet Vol. 11.1 fl (6.2-12.0); NRBC Flagged by Analyzer 0 % (0-5); Platelet Count 168 K/mm3 (150-450); RBC Distribution Width CV 13.2 % (11.6-14.6); RBC Distribution Width SD 44.4 fl (35.1-43.9); Red Blood Count 4.88 M/mm3 (4.6-6.2); White Blood Count 15.4 K/mm3 (4.4-11.0)
[2025-06-05 06:23] LABS: CORTISOL AM 19.40 ug/dL (6.02-18.40)
[2025-06-05 07:01] LABS: AST(SGOT) 12 U/L (<=37); Alanine Aminotransfer ALT/SGPT 9 U/L (<=46); Albumin, Serum 3.2 g/dL (3.5-5.0); Alkaline Phosphatase 51 U/L (40-129); Anion Gap 10 (5-15); BUN 11 mg/dL (4-19); BUN/Creat Ratio 21.2 RATIO (10-20); Calcium,Total 8.5 mg/dL (7.6-11.0); Carbon Dioxide 28.6 mmol/L (21.0-32.0); Chloride 102 mmol/L (98-108); Estimated Creatinine Clearance 184.84 ml/min (50-250); Globulin 2.3 g/dL (2.2-4.2); Glucose 155 mg/dL (70-99); Potassium 4.0 mmol/L (3.3-5.1)
[2025-06-05 07:07] LABS: Ammonia 57.9 umol/L (16-60)
[2025-06-05 07:14] LABS: CORTISOL AM 16.20 ug/dL (6.02-18.40)
[2025-06-05] MEDS: Magnesium Chloride 64 MG Delay Rel.Tablet 128 MG PO (10:13)
[2025-06-05] MEDS: Divalproex (ER) 500 MG Tablet PO ×2 (10:14→21:22)
--- NOTE | 2025-06-05 13:29 | CASEMGMT ---
Dx: Leg Swelling LACE: 2 6-Clicks: 24 Medical record reviewed and patient evaluated for identification of discharge planning needs. Based on this review, at this time criteria are not present to indicate a need for discharge planning. Will remain available to assist with discharge planning needs as identified or requested.
--- NOTE | 2025-06-05 14:22 | PCM.PROGNOTE ---
Subjective Subjective Patient seen and examined. He still complains of lower extremity swelling. He still feels short of breath and is on 4L of oxygen. He had no other complaints and review of systems is otherwise negative. Objective Data Objective Data Vital Signs: Vital Signs Temp Pulse Resp BP Pulse Ox O2 Del Method O2 Flow Rate 98.1 F 60 16 116/75 98 Nasal Cannula 4 06/05/25 12:00 06/05/25 13:09 06/05/25 13:09 06/05/25 12:00 06/05/25 12:00 06/05/25 12:00 06/05/25 12:00 Oxygen Flow Rate (L/min) 4 Oxygen Delivery Method Nasal Cannula Weight: 156 lb 1.396 oz Body Mass Index (BMI) 23.0 Intake & Output: Intake and Output for Last 24 Hours 06/03/25 06/04/25 06/05/25 23:59 23:59 23:59 Intake Total 1320 / 1560 485 / 485 Output Total 925 / 925 400 / 400 Balance 395 / 635 85 / 85 Lab / Micro Data 06/05/25 05:35 06/05/25 05:35 Labs: Laboratory Results - last 24 hr 06/04/25 16:17: POC Glucose 151 H 06/05/25 05:35: WBC 15.4 H, RBC 4.88, Hgb 14.1, Hct 44.5, MCV 91.2, MCH 28.9, MCHC 31.7 L, RDW Std Deviation 44.4 H, RDW Coeff of Uzma 13.2, Plt Count 168, MPV 11.1, Immature Gran % (Auto) 0.400, Neut % (Auto) 87.9 H, Lymph % (Auto) 6.0 L, Becker % (Auto) 5.5, Eos % (Auto) 0.0, Baso % (Auto) 0.2, Absolute Neuts (auto) 13.5 H, Absolute Lymphs (auto) 0.93, Nucleated RBC % 0, Sodium 141, Potassium 4.0, Chloride 102, Carbon Dioxide 28.6, Anion Gap 10, BUN 11, Creatinine 0.51 L, Estim Creat Clear Calc 184.84, Est GFR (MDRD) Non-Af 128, BUN/Creatinine Ratio 21.2 H, Glucose 155 H, Calcium 8.5, Total Bilirubin < 0.15, AST 12, ALT 9, Alkaline Phosphatase 51, Total Protein 5.5 L, Albumin 3.2 L, Globulin 2.3, Albumin/Globulin Ratio 1.4, Cortisol AM Sample 19.40 H 06/05/25 06:33: Ammonia 57.9, Cortisol AM Sample 16.20 06/05/25 11:39: POC Glucose 128 H Micro: Microbiology 06/03/25 21:28 Mucosa - Nasopharyngeal Respiratory Panel (PCR) - Final Physical Exam Const alert, oriented x3 and no apparent distress General Appearance: cooperative HEENT normocephalic, moist oral mucous membranes and oropharynx normal HEENT Narrative: generalised facial swelling Eyes EOMs intact bilaterally Neck no lymphadenopathy and supple Lymph Lymphatic: no lymphedema noted Resp Resp Narrative: diminished breath sounds bibasally, no wheezes or crackles. On 4L of oxygen. Cardio regular rate, regular rhythm, S1 normal heart sound, S2 normal heart sound and no murmurs GI normal to inspection, nondistended, normoactive bowel sounds, soft to palpation, non-tender and non-distended Extremity normal capillary refill Extremity Narrative: bilateral 2+ pitting pedal edema General Extremity: no tenderness to palpation of joints or extremities Neuro CN's II-XII intact bilaterally Motor Exam: general weakness Psych thought process normal, cooperative and affect normal Appearance: appropriate Assessment & Plan Assessment/Plan (1) Bilateral leg edema: (2) Acute hypoxic respiratory failure: (3) Hypotension: (4) Hypoxia: PLAN: Plan #Hypoxia etiology is unclear. He is on 4-5L of oxygen, doesnt wear oxygen at home CXR showed no acute cardiopulmonary pathology COVID, flu and RSV negative. 2D echo: 2D echo showed EF of 65% with normal left ventricular systolic size and function and structurally normal valves. BNp was elevated Swallow study also ordered due to concerns of possible aspiration. #Hypotension BP has been as low as the 80s systolic. He is on prednisone since 2023. There was concern for relative adrenal insufficiency so he was started on stress dose steroids and midodrine. TSH within normal limits. He was taken off of midodrine. Also weaned off of IV hydrocortisone #History of Polysubstance abuse: Currently not using any illicit drugs. On Suboxone. 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 ACTH normal has been on low dose steroids since 2023. Anibal benefit from follow up with endocrinology on outpatient basis. #Hyperammonemia: Ammonia level was elevated at 88.6. Started on lactulose. Is now down 57.9. Will monitor. #History of depression: On Zyprexa and Luvox #History of seizure disorder: On Depakote and carbamazepine. #History of migraines: Propranolol which was held due to his hypotension #GERD: On PPI #History of infective endocarditis: This was back in around 2009. Completed treatment for it. #History of hepatitis C: Completed treatment. #History of testosterone deficiency: Follows with endocrinology on outpatient basis DVT prophylaxis: Lovenox Charges/Coding Visit Charges Inpatient E&M: 82571 Subs Hosp L2
[2025-06-05] MEDS: OLANZapine 5 MG/TAB TAB.RAPDIS PO (21:22)
[2025-06-06 03:56] VITALS: BMI 23.1
[2025-06-06 06:20] VITALS: BP 105/76; PULSE 59; RESP 16; TEMP 36.4; O2SAT 94
[2025-06-06 06:45] VITALS: PULSE 68; RESP 16; O2SAT 91
[2025-06-06 06:58] LABS: Hematocrit 43.5 % (40-54); Hemoglobin 13.8 g/dL (13.0-16.5); Immature Granulocytes Count 0.040 X10^3/uL (0.0-0.0); Mean Corp Hgb Conc 31.7 g/dL (32-36); Mean Corpuscular Volume 91.8 fL (80-94); Mean Platelet Vol. 11.6 fl (6.2-12.0); NRBC Flagged by Analyzer 0 % (0-5); Platelet Count 134 K/mm3 (150-450); RBC Distribution Width CV 13.4 % (11.6-14.6); RBC Distribution Width SD 45.9 fl (35.1-43.9); Red Blood Count 4.74 M/mm3 (4.6-6.2); White Blood Count 7.9 K/mm3 (4.4-11.0)
[2025-06-06 08:00] VITALS: BP 125/78; PULSE 67; RESP 16; TEMP 36.4; O2SAT 93
[2025-06-06 08:06] LABS: Anion Gap 6 (5-15); BUN 14 mg/dL (4-19); BUN/Creat Ratio 27.9 RATIO (10-20); Calcium,Total 8.2 mg/dL (7.6-11.0); Carbon Dioxide 33.8 mmol/L (21.0-32.0); Chloride 102 mmol/L (98-108); Estimated Creatinine Clearance 188.53 ml/min (50-250); Glucose 76 mg/dL (70-99); Potassium 3.8 mmol/L (3.3-5.1)
--- NOTE | 2025-06-06 09:15 | ST.MBS ---
Modified Barium Swallow Patient Information Study Date: 06/06/25 Study Time: 08:30 Direct Billable Minutes: 97 Total Minutes procedure & reportin Diagnosis: COPD J44.9; GERD K21.9 Referring Physician: Marielena Carrillo Reason for Referral: Pt reported to the [facility] ED 06/03/2025 w/ foot swelling. In the ED, he was found to be hypoxic. Pt was admitted for hypoxia w/ underlying COPD, hypotension, and foot swelling amongst several other comorbidities, including seizure disorder, prediabetes, hx of polysubstance abuse, and GERD. See EMR for full PMH. ST consulted due to concern for swallowing difficulty. BSE 06/04/2025 recommended Regular textures / Thin liquids w/ plan for MBSS. Prior MBSS completed at [facility] 08/28/2023, which revealed oropharyngeal swallow function grossly WNL w/ findings of esophageal dysphagia. Pt follows w/ Dr. Godwin for management of GI issues. Medical History: PMH: Crohn's disease, Sjogren's disease, Chest congestion, Loss of hearing, Marijuana use, Alcohol use, Substance abuse, Dietary restriction (Gluten free), Dysphagia, COPD, Seizure, Celiac disease, GERD, Bipolar disorder, Infective endocarditis, Drug abuse - See EMR for full PMH. Surgical Hx: Hx of colonoscopy, Hx of EGD, Hx of hernia repair, History of facial surgery. Current Diet Ordered: Regular textures / Thin liquids Mental Status: WNL Respiratory Status: Oxygenating on Room Air Penetration-Aspiration Scale Penetration-Aspiration Scale: OBJECTIVE ASSESSMENT OF SWALLOW FUNCTION (QUANTITATIVE ? PER TRIAL): PENETRATION / ASPIRATION SCALE (WHEELER): 1 = does not enter airway 2 = enters airway/above vocal folds/ejected 3 = enters airway/above vocal folds/not ejected 4 = enters airway/contacts vocal folds/ejected 5 = enters airway/contacts vocal folds/not ejected 6 = enters airway/below vocal folds/ejected 7 = enters airway/below vocal folds/not ejected despite effort 8 = enters airway/below vocal folds/no effort VIDEOFLOROSCOPIC SCALE SCORE (WHEELER): Grade I = aspiration of material that has penetrated into the laryngeal vestibule, intact cough reflex Grade II = aspiration < 10 % of the bolus, intact cough reflex Grade III = aspiration of < 10 % of the bolus, reduced cough reflex or aspiration of > 10 % of the bolus, intact cough reflex Grade IV = aspiration of > 10 % of the bolus, reduced cough reflex Penetration-Aspiration Scale Score Thin Liquid via teaspoon: Result: 1= does not enter airway Thin Liquid via teaspoon Trial 2: Result: 1= does not enter airway Thin Liquid via large single sip: cup: Result: 1= does not enter airway Thin Liquid via sequential sips: cup: Result: 1= does not enter airway Comment: Esophageal screen - Minimal liquid retention w/ retrograde flow. Pudding via teaspoon: Result: 1= does not enter airway Comment: Esophageal screen - Retention in the middle and lower esophagus w/ retrograde flow. Thin Liquid via single sip: straw: Result: 1= does not enter airway Comment: Esophageal screen - First liquid wash somewhat effective in clearing pudding retention. Second wash provided during the esophageal screen, which mostly cleared barium retention of pudding. 2 Fritos coated Barium Pudding: Result: 1= does not enter airway Comment: Esophageal screen - Liquid wash X2 cleared cookie. Minimal liquid retention w/ retrograde flow. Oral Phase Labial Seal: Interlabial escape, no progression to anterior lip Tongue Control During Bolus Hold: Posterior escape of greater than half of bolus Bolus Preparation/Mastication: Slow prolonged chewing/mashing with complete recollection (posterior loss to the vallecula) Bolus Transport/Lingual Motion: Slowed tongue motion Oral Residue: Trace residue lining oral structures Pharyngeal Phase Initiation of Pharyngeal Swallow: Bolus head in pyriforms Soft Palate Elevation: Trace column of contrast/air between soft palate and pharyngeal wall Laryngeal Elevation: Comp. Superior move thyroid cart w/comp. apprx arytenoid cart-epig pet Anterior Hyoid Excursion: Partial anterior movement Epiglottic Movement: No inversion (1X) Laryngeal Vestibule Closure at Height of Swallow: Complete; no air/contrast in laryngeal vestibule Pharyngeal Stripping Wave: Present - complete Pharyngoesophageal Segment Opening: Complete distension and complete duration; no obstruction of flow Tongue Base Retraction: Narrow column of contrast between tongue base & post. pharyngeal wall Pharyngeal Residue: Trace residue within or on pharyngeal structures Diagnosis/Impression Diagnosis: Mild oropharyngeal dysphagia R13.12; Esophageal dysphagia R13.14 Impression: The oral phase is primarily marked by... -Premature posterior loss of >1/2 of thin and cookie boluses to the pharynx prior to swallow onset. -Delayed tongue motion for A-P transport. The pharyngeal phase is primarily marked by... -Delayed swallow onset. -Mildly decreased TB retraction w/ trace-mild pharyngeal residue of pudding. -Mildly decreased anterior hyoid excursion w/ no epiglottic inversion on second swallow of pudding. Most swallows, pt had complete inversion. The esophageal phase is primarily marked by... -Retention of pudding and cookie in the middle and lower esophagus, which required 2 thin liquid washes to clear. -Minimal retention of liquids w/ retrograde flow. Recommendations Diet: Regular Textures and Thin Liquids Comment: STOP meal if increased s/s of reflux, sensation of retention, or regurgitation despite use of strategies listed below and resume meal at a later time. Compensatory Strategies: Small Bites, Small Sips, Slow Rate, Alternate bites/solids and sips/liquids (2 sips after every bite), Sitting upright and Remain sitting upright for 30 minutes after PO intake Supervision: Distant Supervision Recommend Repeat Modified Barium Swallow: No Need for Skilled Speech Therapy Services: Yes Comment: -Train the patient in use of strategies to decrease risk for reflux aspiration. -Train the patient in oropharyngeal exercise program to improve bolus control, TB retraction, anterior hyoid excursion, and swallow onset (lingual resistance, Liv, Kimberly). Recommended Referrals: GI Consult (Continue to follow w/ OP GI for management of esophageal dysphagia. Pt has GI care established w/ Dr. Godwin.) Education Completed: 1. Described result of evaluation. Status Active ST Patient: Active Contact Information [facility] Speech Therapy:: Carmelita Seals M.A. [facility]-MEDICAL ONCOLOGIST? Speech-Language Pathologist?? [facility] [address] [place] [address]? [email or web address]?? [phone]
[2025-06-06 10:00] VITALS: O2SAT 86; O2SAT 88; O2SAT 91; O2SAT 92
[2025-06-06] MEDS: Divalproex (ER) 500 MG Tablet PO (10:05)
[2025-06-06] MEDS: Magnesium Chloride 64 MG Delay Rel.Tablet 128 MG PO (10:05)
[2025-06-06 13:10] VITALS: PULSE 80; RESP 16
--- NOTE | 2025-06-06 14:28 | DCINST_ITS ---
Discharge Instructions DC O2, CPAP, BIPAP needs Home O2 Discharge instructions: Yes Type of respiratory needs?: Oxygen (3) Oxy gen frequency: Continuous Continuous oxygen liters per minute: 3 Dressing / Incision Discharge Activity: Return to Normal Activity Weight Bearing Status: Weight bearing as tolerated Dressing / Incision Call your doctor if you observe: Fever of 101 or Higher, Shortness of breath, Dizziness, Swelling in the ankles and Chest pain Follow Up Care Test Results: Test results from this visit will be discussed in further detail at your follow- up appointment, if applicable. Discharge Plan Admission Admit Date/Time: 06/03/25 20:09 Primary Reason for Your Visit: hypoxia Attending Provider: Marielena Carrillo Primary Care Provider: Meghana Galindo Consulting Providers: Emy Lyons; Mikaela Cedillo; Marielena Carrillo Instructions Patient Instructions: Traveling with Oxygen, Using an Oxygen Tank at Home Discharge Orders/Prescriptions Prescriptions: New furosemide [Lasix] 40 mg tablet 40 mg PO DAILY Qty: 30 2RF potassium chloride [Klor-Con M20] 20 mEq tablet,ER particles/crystals 20 meq PO DAILY Qty: 30 2RF Continued fluvoxamine 100 mg tablet 100 mg PO QHS propranolol 20 mg tablet 20 mg PO BID oxcarbazepine 600 mg tablet 1,200 mg PO BID olanzapine 5 mg tablet 5 mg PO QHS buprenorphine-naloxone 8-2 mg tablet, sublingual 1 tab sublingual TID Patient Comments: DISOLVE 2 AND ONE-HALF TABLETS UNDER THE TONGUE DAILY FOR 28 DAYS ondansetron 4 mg tablet,disintegrating 4 mg PO Q8H PRN (Reason: nausea and vomiting) Qty: 30 0RF albuterol sulfate 90 mcg/actuation HFA aerosol inhaler 2 puff inhalation Q6H PRN (Reason: shortness of breath or wheezing) Qty: 6.7 0RF divalproex [Depakote] 500 mg tablet,delayed release (DR/EC) 500 mg PO BID sucralfate 1 gram tablet 1 g PO Q6H Qty: 120 0RF sumatriptan succinate 50 mg tablet 50 mg PO Q2H PRN (Reason: migraine headache) olanzapine [Zyprexa] 5 mg tablet 5 mg PO QHS alprazolam [Xanax] 1 mg tablet 1 mg PO BID prednisone 10 mg tablet 10 mg PO Q12H testosterone 20.25 mg/1.25 gram (1.62 %) gel in metered-dose pump 1 pump topical QDAY Qty: 75 2RF Rx Instructions: apply 1 pump amount over max area of ONE upper arm and shoulder gabapentin 300 mg capsule 300 mg PO BID Qty: 60 0RF magnesium oxide 500 mg capsule 500 mg PO DAILY Qty: 30 1RF dicyclomine 10 mg capsule 10 mg PO BID Qty: 60 1RF alprazolam 1 mg tablet 1 mg PO BID PRN (Reason: anxiety) 30 Days Qty: 60 1RF Referrals / Follow Up: Meghana Galindo MD [Primary Care Provider] - Within 1 Week Rene Simon DO [Med Staff - Active Staff] - Within 1 Month (see to establish care for hypoxia due to COPD) Bharath Pires MD [Med Staff - Courtesy Staff] - Within 2 Weeks Disposition Disposition (needs filled in before D/C Order can be placed): Home, Self Care
--- NOTE | 2025-06-06 14:29 | DS.PCM_ITS ---
Providers Date of Admission: 06/03/25 Date of Discharge: 06/06/25 Primary Care Physician: Dr. Meghana Galindo MD Reason For Visit: LEG SWELLING Diagnosis Discharge Diagnosis (1) Bilateral leg edema: Status: Acute Code(s): R60.0 - Localized edema (2) Acute hypoxic respiratory failure: Status: Acute Code(s): J96.01 - Acute respiratory failure with hypoxia (3) Hypotension: Status: Acute Code(s): I95.9 - Hypotension, unspecified (4) Hypoxia: Status: Acute Code(s): R09.02 - Hypoxemia Plan #Hypoxia * etiology is unclear. He is on 4-5L of oxygen, doesnt wear oxygen at home * CXR showed no acute cardiopulmonary pathology * COVID, flu and RSV negative. * 2D echo: 2D echo showed EF of 65% with normal left ventricular systolic size and function and structurally normal valves. * BNp was elevated * Swallow study also ordered due to concerns of possible aspiration. * #Hypotension * BP has been as low as the 80s systolic. * He is on prednisone since 2023. There was concern for relative adrenal insufficiency so he was started on stress dose steroids and midodrine. TSH within normal limits. * He was taken off of midodrine. Also weaned off of IV hydrocortisone #History of * Polysubstance abuse: Currently not using any illicit drugs. On Suboxone. 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 * ACTH normal * has been on low dose steroids since 2023. Anibal benefit from follow up with endocrinology on outpatient basis. * #Hyperammonemia: * Ammonia level was elevated at 88.6. Started on lactulose. * Is now down 57.9. Will monitor. #History of depression: On Zyprexa and Luvox #History of seizure disorder: On Depakote and carbamazepine. #History of migraines: Propranolol which was held due to his hypotension #GERD: On PPI #History of infective endocarditis: This was back in around 2009. Completed treatment for it. #History of hepatitis C: Completed treatment. #History of testosterone deficiency: Follows with endocrinology on outpatient basis DVT prophylaxis: Lovenox Medications at Discharge Home Medications fluvoxamine 100 mg tablet 100 mg PO QHS 08/06/18 propranolol 20 mg tablet 20 mg PO BID 08/06/18 olanzapine 5 mg tablet 5 mg PO QHS 06/17/23 ondansetron 4 mg disintegrating tablet 4 mg PO Q8H PRN nausea and vomiting #30 tabs 09/01/23 albuterol sulfate 90 mcg/actuation aerosol inhaler 2 puff inhalation Q6H PRN shortness of breath or wheezing #6.7 grams 01/07/24 divalproex 500 mg tablet,delayed release (Depakote) 500 mg PO BID 10/04/24 sucralfate 1 gram tablet 1 g PO Q6H #120 TABLETS 02/17/25 buprenorphine 8 mg-naloxone 2 mg sublingual tablet 1 tab sublingual TID 04/04/25 oxcarbazepine 600 mg tablet 1,200 mg PO BID 04/04/25 sumatriptan succinate 50 mg tablet 50 mg PO Q2H PRN migraine headache 04/04/25 testosterone 1 pump topical QDAY #75 grams 04/06/25 gabapentin 300 mg capsule 300 mg PO BID #60 caps 05/02/25 magnesium oxide 500 mg capsule 500 mg PO DAILY #30 caps 05/02/25 dicyclomine 10 mg capsule 10 mg PO BID #60 caps 05/05/25 alprazolam 1 mg tablet 1 mg PO BID PRN anxiety 1 month #60 tabs 05/25/25 alprazolam 1 mg tablet (Xanax) 1 mg PO BID 06/03/25 olanzapine 5 mg tablet (Zyprexa) 5 mg PO QHS 06/03/25 prednisone 10 mg tablet 10 mg PO Q12H 06/03/25 furosemide 40 mg tablet (Lasix) 40 mg PO DAILY #30 tabs 06/06/25 potassium chloride 20 mEq tablet,extended release(part/cryst) (Klor-Con M) 20 meq PO DAILY #30 tabs 06/06/25 Hospital Course Operations None Procedures 2-D Echocardiogram Summary of Care Provided Minutes Spent on Discharge: 45 Hospital Course: Patient is a 45-year-old male with an extensive past medical history as outlined including history of nicotine dependence and COPD as well as alcohol use disorder who was admitted to the ED on 06/03/2025 with complaint of lower extremity swelling. He was hypoxic on room air at 86% and required 2 L of oxygen to go up to above 90%. Chest x-ray showed evidence of COPD and D-dimer was 0.27. Respiratory panel was negative and proBNP was 465. His blood pressure did drop transiently to 82/48. His white cell count was also elevated though he denied any fever or respiratory symptoms or any other symptoms of possible infection. Patient initially left AMA but came back to the ED after several hours. At that time his lactic acid had normalized and procalcitonin was normalized. He was therefore admitted to the manage for hypoxia and lower extremity swelling of unclear etiology. He was diuresed with IV Lasix. He did have 2D echo which showed EF of 65% with normal left ventricular systolic function and structurally normal valves. There was concern for aspiration so he did have a swallow study which did not really show any evidence of aspiration. He required stress dose steroids and midodrine due to hypotension. Patient had been on chronic prednisone and there was concern for relative adrenal insufficiency. He did not appear to have a cushingoid facies though ACTH was normal. Patient remained on 4 L of oxygen throughout and even with walking pulse ox did require 4 L of oxygen. There is no clear etiology for this apart from his history of smoking and resultant COPD. He was discharged home on 06/06/2025 on p.o. Lasix with potassium supplementation. He was referred to pulmonology on outpatient basis and counseled to quit smoking. He is also to follow-up with endocrinology to be worked up for possible Omar syndrome. He is follow-up with his primary care doctor within 1 to 2 weeks. Patient seen and examined prior to discharge. He had no active complaints and had an uneventful night. Review of systems otherwise negative. Labs and vitals reviewed. Home medication reviewed and reconciled Physical Exam Const alert, oriented x3 and no apparent distress General Appearance: cooperative and comfortable HEENT normocephalic, head/scalp atraumatic, hearing grossly normal bilaterally, moist oral mucous membranes and oropharynx normal Mouth: oral and palatal mucosa normal Eyes EOMs intact bilaterally and conjunctivae normal Neck no lymphadenopathy and supple Lymph Lymphatic: no lymphedema noted Resp Resp Narrative: diminished breath sounds bibasally, no wheezes or crackles. On 4L of oxygen. Cardio regular rate, regular rhythm, S1 normal heart sound, S2 normal heart sound and no murmurs GI normal to inspection, nondistended, normoactive bowel sounds, soft to palpation, non-tender and non-distended Extremity normal capillary refill Extremity Narrative: bilateral 1+ pitting pedal edema; has improved. General Extremity: edema and no tenderness to palpation of joints or extremities Skin no rashes or lesions noted Neuro oriented x3, CN's II-XII intact bilaterally and moves all extremities Sensorium / Orientation: awake Motor Exam: strength 5/5 throughout and general weakness Psych thought process normal, cooperative and affect normal Appearance: appropriate Weight / BMI Weight Weight: 156 lb 4.924 oz Body Mass Index (BMI) 23.1 ABG / Lab / Microbiology Data 06/06/25 05:22 06/06/25 05:22 Laboratory: Laboratory Results - last 24 hr 06/05/25 17:53: POC Glucose 208 H 06/05/25 22:51: POC Glucose 89 06/06/25 05:22: WBC 7.9, RBC 4.74, Hgb 13.8, Hct 43.5, MCV 91.8, MCH 29.1, MCHC 31.7 L, RDW Std Deviation 45.9 H, RDW Coeff of Uzma 13.4, Plt Count 134 L, MPV 11.6, Immature Gran % (Auto) 0.500, Neut % (Auto) 63.8, Lymph % (Auto) 23.7, M ji % (Auto) 10.5 H, Eos % (Auto) 0.9, Baso % (Auto) 0.6, Absolute Neuts (auto) 5.1, Absolute Lymphs (auto) 1.88, Nucleated RBC % 0, Sodium 142, Potassium 3.8, Chloride 102, Carbon Dioxide 33.8 H, Anion Gap 6, BUN 14, Creatinine 0.50 L, Estim Creat Clear Calc 188.53, Est GFR (MDRD) Non-Af 129, BUN/Creatinine Ratio 27.9 H, Glucose 76, Calcium 8.2 06/06/25 06:29: POC Glucose 106 06/06/25 11:13: POC Glucose 105 Microbiology: Microbiology 06/03/25 21:28 Mucosa - Nasopharyngeal Respiratory Panel (PCR) - Final Radiography Diagnostic Testing: Radiology Impression Echocardiogram 06/03/25 20:52 Interpretation Summary Normal LV size. Left ventricular systolic function is normal. The left ventricular ejection fraction is 65 %. Structurally normal valves. Ordering Physician: Emy Lyons Referring Physician: Meghana Galindo Performed By: Clifford Christy RCS D/C Instructions Discharge Activity: Return to Normal Activity Weight Bearing Status: Weight bearing as tolerated Call your doctor if you observe: Fever of 101 or Higher, Shortness of breath, Dizziness, Swelling in the ankles and Chest pain DC O2, CPAP, BIPAP Needs Home O2 Discharge instructions: Yes Type of respiratory needs?: Oxygen (3) Oxygen frequency: Continuous Continuous oxygen liters per minute: 3 DC home with Oxygen: Yes Home O2 MD Review: I have reviewed the oxygen testing, and the patient qualifies for home oxygen equipment and portability. The patient is mobile in the home and the community. Meaningful Use Info Meaningful Use Meaningful Use Diagnoses (Choose all that apply): None applicable Discharge Plan Admission Admit Date/Time: 06/03/25 20:09 Primary Reason for Your Visit: hypoxia Attending Provider: Marielena Carrillo Primary Care Provider: Meghana Galindo Consulting Providers: Emy Lyons; Mikaela Cedillo; Marielena Carrillo Instructions Patient Instructions: Traveling with Oxygen, Using an Oxygen Tank at Home Discharge Orders/Prescriptions Prescriptions: New furosemide [Lasix] 40 mg tablet 40 mg PO DAILY Qty: 30 2RF potassium chloride [Klor-Con M20] 20 mEq tablet,ER particles/crystals 20 meq PO DAILY Qty: 30 2RF Continued fluvoxamine 100 mg tablet 100 mg PO QHS propranolol 20 mg tablet 20 mg PO BID oxcarbazepine 600 mg tablet 1,200 mg PO BID olanzapine 5 mg tablet 5 mg PO QHS buprenorphine-naloxone 8-2 mg tablet, sublingual 1 tab sublingual TID Patient Comments: DISOLVE 2 AND ONE-HALF TABLETS UNDER THE TONGUE DAILY FOR 28 DAYS ondansetron 4 mg tablet,disintegrating 4 mg PO Q8H PRN (Reason: nausea and vomiting) Qty: 30 0RF albuterol sulfate 90 mcg/actuation HFA aerosol inhaler 2 puff inhalation Q6H PRN (Reason: shortness of breath or wheezing) Qty: 6.7 0RF divalproex [Depakote] 500 mg tablet,delayed release (DR/EC) 500 mg PO BID sucralfate 1 gram tablet 1 g PO Q6H Qty: 120 0RF sumatriptan succinate 50 mg tablet 50 mg PO Q2H PRN (Reason: migraine headache) olanzapine [Zyprexa] 5 mg tablet 5 mg PO QHS alprazolam [Xanax] 1 mg tablet 1 mg PO BID prednisone 10 mg tablet 10 mg PO Q12H testosterone 20.25 mg/1.25 gram (1.62 %) gel in metered-dose pump 1 pump topical QDAY Qty: 75 2RF Rx Instructions: apply 1 pump amount over max area of ONE upper arm and shoulder gabapentin 300 mg capsule 300 mg PO BID Qty: 60 0RF magnesium oxide 500 mg capsule 500 mg PO DAILY Qty: 30 1RF dicyclomine 10 mg capsule 10 mg PO BID Qty: 60 1RF alprazolam 1 mg tablet 1 mg PO BID PRN (Reason: anxiety) 30 Days Qty: 60 1RF Referrals / Follow Up: Meghana Galindo MD [Primary Care Provider] - 06/12/25 8:00 am (APPOINTMENT WITH JASMEET Avila) Rene Simon DO [Med Staff - Active Staff] - 06/28/25 8:15 am (see to establish care for hypoxia due to COPD) Bharath Pires MD [Med Staff - Courtesy Staff] - 07/11/25 10:30 am Disposition Disposition (needs filled in before D/C Order can be placed): Home, Self Care Charges/Coding Visit Charges Inpatient E&M: 43872 Disch Hosp >30min
--- NOTE | 2025-06-06 15:57 | CASEMGMT ---
Addendum entered by Migdalia Samano 06/06/25 16:08: Pt states that he does not have a pulse ox. Pt was educated about purchasing options and states that he can afford one. Original Note: Pt has an order for DC placed. Per ST's MBSS, additional therapy is recommended for dysphagia. Also noted that the pt qualifies for 3L of oxygen @ rest and 4L with ambulation. RN CM to the pt room at this time. Pt states that he prefers to go to [facility] for OP ST. Pt prefers this RN CM to schedule the appt and prefers around 1100. Rx signed by Dr Lyons. Rx faxed to . TC to and appt scheduled for 06/13 @ 1000 as available. Pt states that he is agreeable. This RN CM also provided the pt with a verbal list of local in-network DME companies. Pt prefers [employer]. Rx signed by Dr Carrillo. Rx sent to [employer] via [employer]. TC to Karson ([facility] [employer]iaison) who reports he will deliver the portable tank momentarily. Pt is aware to call [employer] once he gets home for the delivery of the remaining oxygen equipment needed. Pt states that he is staying at his SO's for the next couple weeks. Pt educated to notify [employer] that during the phone call. Pt states understanding and denies further questions, concerns, or DC needs. Pt's RN updated.
[2025-06-06 16:37] VITALS: BP 115/93; PULSE 88; RESP 18; TEMP 37.1; O2SAT 91
== END 2025-06-06 16:59 | disposition home or self-care (01) | DRG 947 ==
LOC: ED 19:01 → PCU 20:13
PROVIDERS: Family Medicine; Admitting Provider Internal Medicine; Emergency Provider Emergency Medicine; PCP Internal Medicine; Referring Provider Emergency Medicine; Visit Provider Student in an Organized Health Care Education/Training Program
DX: R60.0 Localized edema (principal); J96.01 Acute respiratory failure with hypoxia; E72.20 Disorder of urea cycle metabolism, unspecified; K50.90 Crohn's disease, unspecified, without complications; E27.40 Unspecified adrenocortical insufficiency; J44.9 Chronic obstructive pulmonary disease, unspecified; G40.909 Epilepsy, unspecified, not intractable, without status epilepticus; E03.9 Hypothyroidism, unspecified; F32.9 Major depressive disorder, single episode, unspecified; K21.9 Gastro-esophageal reflux disease without esophagitis; G43.709 Chronic migraine without aura, not intractable, without status migrainosus; F17.210 Nicotine dependence, cigarettes, uncomplicated; E29.1 Testicular hypofunction; F41.9 Anxiety disorder, unspecified; Z79.899 Other long term (current) drug therapy; R73.03 Prediabetes; Z71.6 Tobacco abuse counseling; Z86.19 Personal history of other infectious and parasitic diseases; K90.0 Celiac disease; Z86.79 Personal history of other diseases of the circulatory system
CPT/HCPCS: 36415; 36600; 71275; 74230; 80048; 80053; 80164; 82140; 82533; 82803; 82962; 83036; 83735; 83880; 84145; 84439; 84443; 85025; 87633; 92610; 92611; 93306; 94640; 94668; 99285; Q9967; A4216; J0834

== ENCOUNTER 2025-06-13 09:59 | Outpatient (RCR) | payer BC, SELFPAY ==
--- NOTE | 2025-06-13 16:25 | HP.SP.EV_ITS ---
Visit History Visit Info Date of Eval: 06/13/25 Today is Visit #: 1 Patient's Approved Number of Visits: 20 Insurance Date Limit: 11/15/25 Security Solutions Engineer: NISA History Attending Doctor: Referring Doctor: Reason for Referral: DYSPHAGIA. RX TO BE FAXED Medical Diagnosis: Mild oropharyngeal and esophageal dysphagia [R13.12] [R13.14] Date of Onset of Diagnosis: Pt stated this has been going on for years, potentially around 2012. Previous speech therapy: Yes Results: MBSS on 08/28/23 revealing mild esophageal dysphagia, MBSS on 06/06/25 revealing mild oropharyngeal and esophageal dysphagia. Other Relevant Medical History/Diagnoses/Surgery: Jose is a 45M who reported to [facility] ED on 06/03/25 with foot and leg swelling that began on 05/21/25. Pt was admitted for hypoxia with underlying COPD, hypotension, and foot swelling among other comorbidities including seizure disorder, prediabetes, hx of polysubstance abuse, and GERD. ST was consulted while in [facility] due to concern with swallowing difficulty. Pt has has previous MBSS on 08/28/23, which revealed oropharyngeal swallow function grossly WNL w/ findings of esophageal dysphagia. Another MBSS completed on 06/06/25 which revealed mild oropharyngeal and esophageal dysphagia. Pt stated that his swallowing difficulties began many years ago, around 2012, when he slit his throat open. Pt stated that the difficulties he experiences with swallowing involve food or liquid feeling like it can't go down and then he spits it back up so that he does not fully choke. Pt stated that this happens 1-2x per week (on average). Smoking Status: Current every day smoker Diagnosis Diagnosis: Mild oropharyngeal and esophageal dysphagia [R13.12] [R13.14] Pain Is pain an issue with your current prescribed condition?: No Personal Preferred language: Gambian Patient Allergies Allergies Allergies: Allergies gluten Allergy (Unknown, Verified 06/12/25 08:03) Other celiac's disease Penicillins Allergy (Unknown, Verified 06/12/25 08:03) Rash Subjective Dysphagia Symptoms Reported Symptoms/Problems with: Choking, Difficulty Swallowing Solids, Difficulty Swallowing Liquids, Difficulty Swallowing Pills and Food gets stuck Other: Per pt report Current Diet Solids Current Diet: Regular Current Diet Liquids Current Liquids: Thin Comments -: -: Pt stated that his swallowing difficulties began many years ago, around 2012, when he slit his throat open. Pt stated that the difficulties he experiences with swallowing involve food or liquid feeling like it can't go down and then he spits it back up so that he does not fully choke. Pt stated that this happens 1-2x per week (on average). Objective Dysphagia Administered by Administered by: STEM PROCESSING MACHINE OPERATOR Thin Liquids Administred via: Cup and Straw Oral Transit: WNL Bolus clearance: fully cleared Gagging: No Cough: productive Patient Report: Pt reported having no difficulty with swallowing water using a cup sip, but the straw made the liquid go down too quickly and he felt his throat begin to tense up, like he was about to choke. Comments: Pt with eyes watering during straw sip of water x1. Pureed Administered via: Spoon Oral Preparation: WNL Oral Transit: WNL Bolus clearance: fully cleared Gagging: No Cough: productive Pharyngeal phase: laryngeal elevation mildly restricted slow initiation Patient Report: Patient reported no difficulty with swallowing applesauce. Comments: Patient with no overt s/s of aspiration. Regular Oral Preparation: WNL Oral Transit: WNL Bolus clearance: fully cleared Gagging: No Cough: productive Pharyngeal phase: laryngeal elevation mildly restricted slow initiation Patient Report: Patient reported no difficulty with chewing or swallowing various crunchy food items. Comments: Patient with no overt s/s of aspiration. Swallowing Impairment Contributing Factors to Swallowing Impairment: Reduced Laryngeal Excursion Impact Impact on Safety & Functioning: Risk for Aspiration Comments: Patient is at mild risk for aspiration due to hx of esophageal dysphagia, GERD, and slow initiation of laryngeal elevation. Recommendations Modified Barium Swallow/Cookie Swallow Recommended: No Swallowing Treatment: Yes Diet Texture Recommendations Solids: Regular (Level 7) Liquids: Thin (Level 0) Safety Saftey Precautions/Swallowing Recommendations (Check all that Apply): Upright Position at Least 30 Minutes After Meals, Small Sips & Bites when Eating, No Straw, Multiple Swallows and Alternate Liquids & Solids Results Swallowing Within Normal Limits: No (Pt with risk for aspiration due to hx, GERD, and red. initiation of larynx) Swallowing Diagnosis: Pharyngoesophageal Phase Dysphagia (R13.14) Severity: Mild Objective Oral Motor Oral Status Dentition: Missing Teeth Labial Impairment: WNL Observation at Rest: WNL Closure: WNL Pucker: WNL Retraction: WNL Alternating Pucker/Retraction: WNL Involuntary Movement noted: No Lingual Impairment: WNL Protrusion: WNL Retraction: WNL Lateralization: WNL Involuntary Movement: No Jaw Impairment: WNL Opening: WNL Closing: WNL Involuntary Movement: No Respiratory Status Respiratory Status: Nasal Cannula Reference: Neuro-QoL instrument Radiation Oncology Patient Plan Plan Plan: At this time, it is recommended that Jose completed a home exercise program to target mild pharyngoesophageal dysphagia, characterized by slow initiation of laryngeal elevation and mild retention post swallow. Additionally, it is recommended that he return for a follow up appointment in 1 month to re- evaluate his swallow function. Recommendations Treatment Warranted: Yes Treatment Warranted: Dysphagia Progress Prognosis: Good Frequency Frequency: 1x Duration: within 1 month Visits in this POC: 1 Patient/Family Goal Patient/Family Goal: Patient stated that he wants to reduce the amount of times he experiences choking episodes while eating and drinking. Goals that are Established Determination:: Goals will be added/modified as deemed necessary and appropriate. Therapy will be discontinued when results of re-evaluation indicate therapy is no longer needed or lack of progress has been documented. Goal #1-5 Goal #1: Patient will participate in home exercise program consisting of oropharyngeal strengthening exercises and safe swallow strategies. Goal #2: Patient will participate in follow up appointment 1 month after initial evaluation. Education Patient Instruction Patient Education: Treatment Plan, Goals, Safety Precautions and Home Exercise Program Person Taught: Patient Teaching Method: Discussion Response to teaching: Verbalize Understanding
--- NOTE | 2025-10-23 10:38 | HP.SP.DC_ITS ---
ST Discharge Summary Discharged: Discharge: Patient is being discharged from [facility] speech therapy services at this time. Patient attended initial evaluation on 06/13/25 with concerns of dysphagia. Pt recommended to complete oropharyngeal and oral motor strengthening tasks at home and attend follow up appointment 1 month after intiial evaluation. Pt did not attend scheduled follow up appointment on 07/14/25 and did not schedule any visits following that date. Thank you for allowing me to participate in the care of this patient.
== END 2025-06-13 19:00 | disposition home or self-care (01) ==
LOC: SP 09:59
PROVIDERS: PCP Internal Medicine; Referring Provider Internal Medicine; Visit Provider Internal Medicine
DX: R13.12 Dysphagia, oropharyngeal phase (principal); R13.14 Dysphagia, pharyngoesophageal phase
CPT/HCPCS: 92610

== ENCOUNTER → 2025-07-19 | Outpatient (CLI) | payer BC, SELFPAY | END | disposition home or self-care (01) | LOC: PSN 09:17 | PROVIDERS: PCP Internal Medicine; Referring Provider Nurse Practitioner Acute Care; Visit Provider Nurse Practitioner Acute Care | DX: J44.9 Chronic obstructive pulmonary disease, unspecified (principal) | CPT/HCPCS: 94060; 94726; 94729 ==

== ENCOUNTER → 2025-07-20 | Outpatient (CLI) | payer BC, SELFPAY ==
[2025-07-20 08:38] VITALS: PULSE 81; PULSE 86; PULSE 88; PULSE 92; PULSE 93; PULSE 94; PULSE 96; O2SAT 85; O2SAT 86; O2SAT 91; O2SAT 92; O2SAT 94; O2SAT 96
--- NOTE | 2025-07-20 08:48 | CPS ---
Patient has oxygen at home, wears 3lpm continuous. SpO2 on room air at rest, 85%. Placed patient on his home O2 tank at 3lpm, SpO2 93%. Started testing on 3lpm O2, by the second minute SpO2 86%. Stopped patient at this time, increased O2 to 4lpm continuous and patient was able to walk the remaining 4 minutes, SpO2 92-94%. Explained importance of wearing 4lpm upon ambulation and monitoring SpO2 to limit episodes of saturations in the 80's.
--- NOTE | 2025-07-21 10:17 | PCM.PSN.6M ---
PSN 6 Minute Walk Test 6 Minute Walk Test 6 Minute Walk Test: 6 Minute Walk Test PSN:6-Minute Walk Test Start: 07/20/25 08:37 Freq: Status: Active Protocol: [id number] Document 07/20/25 08:38 [email or web address] (Rec: 07/20/25 08:53 [email or web address] [id number]) 6 Minute Walk Test Date Performed 07/20/25 Time Performed 08:15 Height 5 ft 9 in Weight: 150 lb Weight in Pounds 150.[address]: Sabi Mae [employer] Assistive device None used: Pre-test Oxygen Delivery Room Air Method Pulse Ox (%) 85 Pulse Rate (60-100 88 beats/min) Dyspnea Daniel Scale ( 1 0-10) Exertion Daniel Scale 6 (6-20) 1st minute Oxygen Flow Rate (L/ 3 min) (L/min) Oxygen Delivery Nasal Cannula Method Pulse Ox (%) 91 Pulse Rate (60-100 94 beats/min) 2nd minute Oxygen Flow Rate (L/ 3 min) (L/min) Oxygen Delivery Nasal Cannula Method Pulse Ox (%) 86 Pulse Rate (60-100 96 beats/min) 3rd minute Oxygen Flow Rate (L/ 4 min) (L/min) Oxygen Delivery Nasal Cannula Method Pulse Ox (%) 92 Pulse Rate (60-100 86 beats/min) 4th minute Oxygen Flow Rate (L/ 4 min) (L/min) Oxygen Delivery Nasal Cannula Method Pulse Ox (%) 94 Pulse Rate (60-100 92 beats/min) 5th minute Oxygen Flow Rate (L/ 4 min) (L/min) Oxygen Delivery Nasal Cannula Method Pulse Ox (%) 94 Pulse Rate (60-100 93 beats/min) 6th minute Oxygen Flow Rate (L/ 4 min) (L/min) Oxygen Delivery Nasal Cannula Method Pulse Ox (%) 94 Pulse Rate (60-100 96 beats/min) Dyspnea Daniel Scale ( 3 0-10) Exertion Daniel Scale 14 (6-20) Post-test Oxygen Flow Rate (L/ 4 min) (L/min) Oxygen Delivery Nasal Cannula Method Pulse Ox (%) 96 Pulse Rate (60-100 81 beats/min) Full Laps Walked 14 Partial Lap, Number 32 of Tiles Walked Total Distance 858 Walked (ft) 07/20/25 08:48 Cardiopulmonary Services by Dasha Hamilton Patient has oxygen at home, wears 3lpm continuous. SpO2 on room air at rest, 85%. Placed patient on his home O2 tank at 3lpm, SpO2 93%. Started testing on 3lpm O2, by the second minute SpO2 86%. Stopped patient at this time, increased O2 to 4lpm continuous and patient was able to walk the remaining 4 minutes, SpO2 92-94%. Explained importance of wearing 4lpm upon ambulation and monitoring SpO2 to limit episodes of saturations in the 80's. Initialized on 07/20/25 08:48 - END OF NOTE Interpretation Interpretation: The patient ambulated 858 feet over the course of 6 minutes beginning on room air without assistive devices. Pretesting oxygen saturation was noted to be 85% on room air. 3 L/min of oxygen was applied prior to commencing testing. With ambulation, the tanya oxygen saturation was 86%, requiring an escalation in flow rate to 4 L/min to improve oxygen saturations. Recommendations Recommendations: 3 L/min of supplemental oxygen is required at rest, while 4 L/min is required with exertion.
[2025-07-25 10:09] LABS: Testosterone, % Free 1.31 % (1.50-4.20); Testosterone, Free 3.88 ng/dL (5.00-21.00)
== END | disposition home or self-care (01) ==
PROVIDERS: Internal Medicine Endocrinology, Diabetes & Metabolism; PCP Internal Medicine; Referring Provider Nurse Practitioner Acute Care; Visit Provider Nurse Practitioner Acute Care
DX: J44.9 Chronic obstructive pulmonary disease, unspecified (principal); R79.89 Other specified abnormal findings of blood chemistry
CPT/HCPCS: 36415; 84402; 84403; 94618

== ENCOUNTER → 2025-07-25 | Outpatient (CLI) | payer BC, SELFPAY | END | disposition home or self-care (01) | LOC: SL 19:44 | PROVIDERS: PCP Internal Medicine; Referring Provider Nurse Practitioner Acute Care; Visit Provider Nurse Practitioner Acute Care | DX: G47.10 Hypersomnia, unspecified (principal) | CPT/HCPCS: 95810 ==

== ENCOUNTER → 2025-09-28 | Outpatient (CLI) | payer MEDICAID, SELFPAY ==
[2025-09-28 12:34] LABS: Hematocrit 45.0 % (40-54); Hemoglobin 14.4 g/dL (13.0-16.5); Immature Granulocytes Count 0.010 X10^3/uL (0.0-0.0); Mean Corp Hgb Conc 32.0 g/dL (32-36); Mean Corpuscular Volume 87.4 fL (80-94); Mean Platelet Vol. 11.9 fl (6.2-12.0); NRBC Flagged by Analyzer 0 % (0-5); Platelet Count 143 K/mm3 (150-450); RBC Distribution Width CV 11.5 % (11.6-14.6); RBC Distribution Width SD 37.4 fl (35.1-43.9); Red Blood Count 5.15 M/mm3 (4.6-6.2); White Blood Count 4.4 K/mm3 (4.4-11.0)
[2025-09-28 13:36] LABS: AST(SGOT) 15 U/L (<=37); Alanine Aminotransfer ALT/SGPT 10 U/L (<=46); Albumin, Serum 3.8 g/dL (3.5-5.0); Alkaline Phosphatase 90 U/L (40-129); Anion Gap 9 (5-15); BUN 12 mg/dL (4-19); BUN/Creat Ratio 15.4 RATIO (10-20); Calcium,Total 9.0 mg/dL (7.6-11.0); Carbon Dioxide 30.3 mmol/L (21.0-32.0); Chloride 99 mmol/L (98-108); Globulin 2.7 g/dL (2.2-4.2); Glucose 121 mg/dL (70-99); Magnesium 2.0 mg/dL (1.5-2.2); Potassium 4.4 mmol/L (3.3-5.1)
== END | disposition home or self-care (01) ==
LOC: LAB 11:54
PROVIDERS: PCP Internal Medicine; Referring Provider Nurse Practitioner Family; Visit Provider Nurse Practitioner Family
DX: J96.11 Chronic respiratory failure with hypoxia (principal); J43.2 Centrilobular emphysema; G47.10 Hypersomnia, unspecified; F41.9 Anxiety disorder, unspecified
CPT/HCPCS: 36415; 80053; 83036; 83735; 84443; 85025